=== PATIENT | female | born 1960 | race Caucasian/White ===

== ENCOUNTER 2017-03-23 19:15 | Emergency (ER) | payer OTHER ==
[~2017-03-23] VITALS: Ht 162.6 cm; Wt 68.0 kg
[~2017-03-23 19:15] MED LIST: ACET-141 PO; CALC1TAB78 PO; CIPR500T4 PO; ELEC100080 PO; FOLI-49 PO; IBUP-1542 PO; LOPE2CAP PO; MET25 PO; MULT-552 PO; PRED1TAB2 PO; PRIM250T37 PO; SMV40T PO; [UNRECOGNIZED DRUG - CODE] PO
[2017-03-23 19:17] VITALS: Ht 162.6 cm; Wt 68.0 kg
[2017-03-23 19:58] LABS: URINE BLOOD (Dip) POC 3+ (NEGATIVE)
[2017-03-23] MEDS ORDERED: SOD CHLORIDE 0.9% 1,000 ML IV ONE (20:30)
[2017-03-23] MEDS ORDERED: IBUPROFEN 600 MG TAB PO ONE (20:30)
[2017-03-23] MEDS ORDERED: CEFTRIAXONE 1 GM INJ IM ONE (20:30)
[2017-03-23] MEDS ORDERED: CEFTRIAXONE 1 GM INJ IVPB ONE (21:00)
--- NOTE | 2017-03-23 23:08 | RADRPT ---
PROCEDURE: XR Chest. CLINICAL INDICATION: Cough. TECHNIQUE: PA and lateral views of the chest were obtained. COMPARISON: CT chest 05/21/2015 FINDINGS: The trachea central bronchi are patent. The cardiomediastinal silhouette is within normal limits. The lungs are clear. No pleural effusion or pneumothorax is identified. Demineralization with mult iple chronic thoracic and lumbar vertebral body compression deformities are again noted. 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 RPTAT:HJJR IMPRESSION: 1. No evidence of acute intrathoracic abnormality. 2. Multilevel chronic thoracic and lumbar vertebral body compression deformity is stable compared t o the CT of 05/21/2015. Physician Konstantin Date Time Electronically viewed and signed by Mino Pérez Physician on 03/23/2017 23:07 /
[2017-03-23] MEDS ORDERED: CIPR500T4 PO (23:13)
[2017-03-23] MEDS ORDERED: PHEN-537 PO (23:13)
[2017-03-23 23:32] VITALS: BP 107/87; PULSE 106; RESP 19; TEMP 99.9
--- NOTE | 2017-03-24 00:59 | ERA ---
ER Documentation Chief Complaint Date/Time DATE: 03/24/17 TIME: 00:58 Chief Complaint blood in urine, urine urgency, painful urination, treated currently w/ UTI HPI This is a 56-year-old female who is presenting 1 week after being diagnosed with a UTI with symptoms persisting. Patient is taking all of her antibiotics but wanted. Patient was prescribed Macrobid 7 days. Patient still having hematuria dysuria. Patient denies fever, chills, back pain, discharge. Patient has no other complaints and describes no other associated manifestations. No recent travel. I have reviewed the nurse's notes and are consistent with a history given. ROS All systems reviewed and are negative except as per history of present illness. Medications Home Meds Active Scripts Phenazopyridine Hcl* (Pyridium*) 100 Mg Tab, 100 MG PO TID Y for URINARY PAIN, # 8 TAB Prov:KEVEN JOHNSON PA-C 03/23/17 Ciprofloxacin Hcl* (Ciprofloxacin Hcl*) 500 Mg Tablet, 500 MG PO BID for 14 Days , TAB Prov:KEVEN JOHNSON PA-C 03/23/17 Loperamide Hcl* (Imodium*) 2 Mg Capsule, 2 MG PO .AFTER EA LOOSE BM Y for DIARRHEA, #10 TAB Prov:REYNOLD COOMBS 04/25/16 Electrolyte,Oral (Pedialyte) 1,000 Ml Solution, 100 ML PO Q6 Y for DIARRHEA for 4 Days, ML Prov:REYNOLD COOMBS 04/25/16 Ciprofloxacin Hcl* (Ciprofloxacin Hcl*) 500 Mg Tablet, 500 MG PO BID for 7 Days , TAB Prov:REYNOLD COOMBS 04/25/16 Ibuprofen* (Ibuprofen*) 600 Mg Tablet, 600 MG PO Q6, #30 TAB Prov:GUEVARA LAURENT 05/22/15 Reported Medications Multivitamins* (Once Daily*) 1 Tab Tablet, 1 TAB PO DAILY, TAB 05/21/15 Acetaminophen* (Acetaminophen*) 500 MG Extra Strength Tablet, 1000 MG PO Q6H Y for PAIN, TAB 05/21/15 Methotrexate* (Methotrexate*) 2.5 Mg Tab, 20 MG PO every 7 days, TAB 05/21/15 Simvastatin (Simvastatin) 40 Mg Tablet, 40 MG PO HS, TAB 05/21/15 Prednisone* (Prednisone*) 1 Mg Tablet, 3 MG PO DAILY, TAB 05/21/15 Carbamazepine* (Carbamazepine* XR) 100 Mg Cpmp.12hr, 500 MG PO TID, CAP 05/21/15 Primidone* (Mysoline*) 250 Mg Tablet, 250 MG PO TID 01/24/13 Folic Acid* (Folic Acid*) 1 Mg Tablet, 1 MG PO DAILY 01/24/13 Calcium Carbonate/Vitamin D3 (Calcium Carb 500 Mg Tab Chew) 1 Tab.chew Tab.chew , PO BID 07/07/11 Allergies Allergies: Coded Allergies: No Known Drug Allergies (Verified Allergy, 05/01/13) PMhx/Soc History of Surgery: Yes (TAHBSO, BRAIN TUMOR) Anesthesia Reaction: No Hx 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 Disorder: Yes Hx Respiratory Disorders: No Hx Cardiac Disorders: Yes Hx Psychiatric Problems: No Hx Miscellaneous Medical Probl: Yes (RA, LUPUS, GALLSTONES) Hx Alcohol Use: No Hx Substance Use: No Hx Tobacco Use: No Smoking Status: Never smoker Physical Exam Vitals Vital Signs Date Time Temp Pulse Resp B/P Pulse Ox O2 Delivery O2 Flow Rate FiO2 03/23/17 23:32 99.9 106 19 107/87 96 Room Air 03/23/17 19:17 101.1 109 20 129/66 97 Physical Exam Const: Older appearing overweight. No acute distress. Head: Normocephalic, Atraumatic. Eyes: Non-injected; No scleral erythema, discharge or foreign body. EOMI and SHEA bilaterally. Ears: Normal External Ears, EACs clear, TM normal bilaterally without erythema. Nose: Normal nose without discharge, septal deviation, or sinus tenderness. Oral: No oral edema visualized. Mucous membranes moist and pink. Neck: No cervical lymphadenopathy, masses or goiter palpated. Full range of motion. Supple. Trachea midline. ~ No meningismus. Pulm: Good air movement in upper and lower respiratory tracts. No dyspnea, stridor, tripoding or drooling. Clear to auscultation bilaterally. Cardio: Regular rate and rhythm; No murmurs, gallops or rubs auscultated. No JVD grossly observed. Radial and posterior tibial pulses 2+ bilaterally. No cyanosis. Capillary refill less than 2 seconds. Abd: Mild suprapubic tenderness. Abdomen soft, non tender, non distended. No guarding, masses. Normal bowel sounds. No McBurney's point tenderness. MS: Normal motor strength, normal tone with gross examination. Skin: No petechiae or rashes. No ulcer, induration, jaundice. Good turgor. Back: No midline, flank or CVA tenderness. Ext: No cyanosis, or edema. Normal movement of all extremities grossly observed. Neur: Awake, alert and oriented x3. Neurovascularly intact bilaterally. Psych: Normal Mood and Affect. Results 24 hrs Laboratory Tests Test 03/23/17 20:03 Bedside Urine pH (LAB) 7.0 Bedside Urine Protein (LAB) 3+ Bedside Urine Glucose (UA) Negative Bedside Urine Ketones (LAB) Negative Bedside Urine Blood 3+ Bedside Urine Nitrite (LAB) Negative Bedside Urine Leukocyte Esterase (L 3+ Current Medications Medications (Trade) Dose Ordered Sig/Robin Route PRN Reason Start Time Stop Time Status Last Admin Dose Admin Sodium Chloride (NS) 1,000 ml @ 1,000 mls/hr Q1H ONCE IV 03/23/17 20:30 03/23/17 21:29 DC 03/23/17 20:50 Ibuprofen (Motrin) 600 mg ONCE ONCE PO 03/23/17 20:30 03/23/17 20:31 DC 03/23/17 20:49 Ceftriaxone Sodium (Rocephin) 1 gm ONCE ONCE IM 03/23/17 20:30 03/23/17 20:43 DC Ceftriaxone Sodium (Rocephin) 1 gm ONCE ONCE IVPB 03/23/17 21:00 03/23/17 21:01 DC 03/23/17 20:48 Procedures/MDM This is a 56-year-old female presenting with signs and symptoms consistent with urinary tract infection. Patient is on last day of Macrobid without resolution of symptoms. Patient currently has a fever thus ibuprofen is given with resolution of the fever. Patient is also tacky and a saline bolus was given. Patient denies chest pain/epigastric pain/diaphoresis and at this time I very little suspicion for acute coronary syndrome. Patient states that she is in mild discomfort. Urine culture and blood cultures were obtained. Urinalysis was consistent with urinary tract infection. Physical exam showed moderate suprapubic tenderness. Before discharge patient said that she also has had cough thus a chest x-ray was taken to rule out pneumonia. The chest x-ray was read by the radiologist given the following impression 1. No evidence of acute intrathoracic abnormality. 2. Multilevel chronic thoracic and lumbar vertebral body compression deformity is stable compared to the CT of 05/21/2015. At this time a very little suspicion for pneumonia, pulmonary embolism, acute coronary syndrome or other intrathoracic pathologies. Most likely diagnosis is acute hemorrhagic cystitis. At this time I very little suspicion for pyelonephritis, ovarian torsion, tubo-ovarian abscess, mechanical obstruction, hernia, appendicitis, intestinal ischemia, PID, AAA, or diverticulitis. Repeat exam was unremarkable. The patient is well appearing, and tolerates PO. I have reviewed this case with my attending Dr. Dc who agrees with the assessment and plan. I have spoke with the patient regarding their condition and future management. They have verbally responded that they understand their status and treatment plan. The patients vitals are stable, and their current condition is appropriate for discharge. The patient will be given discharge instructions with return precautions. Patient's antibiotics will consist of 14 days of Cipro. Departure Diagnosis: Primary Impression: Complicated UTI (urinary tract infection) Additional Impression: Urinary tract infection Qualified Code: N30.01 - Acute cystitis with hematuria Condition: Stable Patient Instructions: Understanding Urinary Tract Infections (UTIs) Additional Instructions: Aky un seguimiento con bahena PCP dentro de los prximos 1-3 joseph para ashwini evaluaci n ms completa y ashwini posible derivacin a un especialista. Devuelva el departamento de emergencia inmediatamente si los sntomas empeoran o cambian. Si tiene alguna pregunta con respecto a los medicamentos, consulte con bahena farmac utico o con nosotros antes de salir. Si se producen reacciones adversas mientras gianfranco kiara medicamentos, suspenda el tratamiento y regrese inmediatamente al servicio de urgencias. Ruth kiara medicamentos segn las indicaciones y complete el curso completo del tratamiento. KEVEN JOHNSON PA-C Mar 24, 2017 00:58
== END 2017-03-23 23:30 | disposition home or self-care (01) ==
LOC: FTE 19:15
DX: N30.01 Acute cystitis with hematuria (principal); R05 Cough
CPT/HCPCS: 71020; 81003; 87040; 87086; J0696; J7030; Z7610; 96374

== ENCOUNTER 2017-04-23 11:51 | Inpatient (IN) | payer OTHER ==
[~2017-04-23] VITALS: Ht 144.8 cm; Wt 64.0 kg
[~2017-04-23 11:51] MED LIST changes: +PHEN-537 PO; +SIMV40TA3 PO; -SMV40T PO
[2017-04-23] MEDS ORDERED: morphine 4 MG/ML VIAL IV STA (16:17)
[2017-04-23] MEDS ORDERED: SOD CHLORIDE 0.9% 1,000 ML IV STA (16:17)
[2017-04-23] MEDS ORDERED: ONDANSETRON 4 MG INJ IV STA (16:17)
[2017-04-23] MEDS ORDERED: ERTAPENEM SODIUM 1 GM in SOD CHLORIDE 0.9% 100 ML IVPB ONE (16:30)
[2017-04-23 16:40] LABS: BASOPHILS % 0.2 % (0.0-2.0); HEMATOCRIT 34.9 % (37.0-47.0); HEMOGLOBIN 10.8 g/dl (12.0-16.0); LYMPHOCYTES # 1.1 10^3/ul (0.8-2.9); LYMPHOCYTES % 10.4 % (15.0-51.0); MEAN CORPUSCULAR HGB CONC 30.9 g/dl (32.0-37.0); MEAN CORPUSCULAR VOLUME 93.6 fl (82.0-101.0); MEAN PLATELET VOLUME 9.4 fl (7.4-10.4); MONOCYTE # 0.9 10^3/ul (0.3-0.9); MONOCYTES % 8.3 % (0.0-11.0); NEUTROPHIL # 8.5 10^3/ul (1.6-7.5); NEUTROPHILS % 80.6 % (39.0-77.0); PLATELET COUNT 569 10^3/UL (140-415); RED BLOOD COUNT 3.73 10^6/ul (4.20-5.40); RED CELL DISTRIBUTION WIDTH 14.5 % (11.5-14.5); WHITE BLOOD COUNT 10.6 10^3/ul (4.8-10.8)
[2017-04-23 17:01] LABS: ALBUMIN 3.8 g/dl (3.3-4.9); CALCIUM 10.5 mg/dl (8.4-10.2); CREATININE 0.38 mg/dl (0.44-1.00)
[2017-04-23 17:02] LABS: ALBUMIN/GLOBULIN RATIO 0.9
[2017-04-23] MEDS ORDERED: SOD CHLORIDE 0.9% 100 ML ONE (17:11)
[2017-04-23] MEDS ORDERED: IOHEXOL 300MG/ML 150 ML BTL ONE (17:11)
[2017-04-23 17:46] LABS: ADD UMIC YES; UR ASCORBIC ACID 40 mg/dL (NEGATIVE); UR BILIRUBIN (Dip) NEGATIVE (NEGATIVE); UR BLOOD (Dip) 1+ mg/dL (NEGATIVE); UR CLARITY TURBID (CLEAR); UR COLOR AMBER (YELLOW); UR GLUCOSE (Dip) NEGATIVE (NEGATIVE); UR KETONES (Dip) NEGATIVE (NEGATIVE); UR LEUKOCYTE ESTERASE (Dip) 3+ Leu/ul (NEGATIVE); UR NITRITE (Dip) NEGATIVE (NEGATIVE); UR NONSQUAMOUS EPITHELIAL CELL 1 /HPF (NONE SEEN); UR RBC 9 /HPF (0-5); UR SPECIFIC GRAVITY (Dip) 1.011 (1.003-1.030); UR TOTAL PROTEIN (Dip) 1+ mg/dl (NEGATIVE); UR UROBILINOGEN (Dip) NEGATIVE (NEGATIVE); UR WBC CLUMPS MANY /HPF (NONE SEEN)
--- NOTE | 2017-04-23 17:58 | RADRPT ---
PROCEDURE: CT Abdomen and Pelvis with contrast. CLINICAL INDICATION: Abdominal pain TECHNIQUE: CT of the abdomen and pelvis was performed on a multi-detector scanner following the un complicated IV administration of 85 cc of Omnipaque 300. Coronal and sagittal images were reformatt ed from the axial data set. One or more of the following dose reduction techniques were used: autom ated exposure control, adjustment of the mA and/or kV according to patient size, use of iterative r econstruction technique. CTDI = 16.53 mGy. DLP = 836.91 mGy-cm. COMPARISON: CT, 01/24/2013 FINDINGS: CT abdomen: The lung bases are clear. The heart size is normal, without pericardial effusion. Gallbladder is s urgically absent. Liver, biliary tree, pancreas, spleen, adrenal glands and right kidney are unrema rkable. Nonobstructive left renal calculus is seen, without ureterolithiasis or obstructive uropath y. The stomach is grossly unremarkable. There is no abdominal aortic aneurysm or dissection. There is no retroperitoneal lymphadenopathy. The isha hepatis region is clear. CT pelvis: Multilocular gas and fluid collection is identified in the central pelvis, measuring approximately 1 1 x 9 x 8 cm (3-127), compatible with abscess. Collection is directly adjacent to sigmoid colon, li olga representing diverticular abscess. No bowel obstruction or free intraperitoneal air is seen. The patient is status post appendectomy. Bowel containing lower abdominal ventral hernia is noted, without incarceration. Urinary bladder is not well visualized. Uterus is surgically absent. No so lid pelvic mass or lymphadenopathy is identified. The surrounding osseous structures are remarkable for diffuse degenerative enthesopathy of the spine . There are multilevel mild to moderate chronic compression deformities throughout the visualized t horacolumbar spine. No osteolytic or osteoblastic lesion is detected. IMPRESSION: 1. Findings suggestive of large diverticular abscess in the central pelvis, measuring approximately 11 cm in maximal dimension. No bowel obstruction or free intraperitoneal air is identified. Urinar y bladder is not well visualized. 2. Gallbladder and uterus are surgically absent. 3. Bowel containing lower abdominal ventral hernia is noted, without obstruction or incarceration. 4. Nonobstructive left renal calculus is noted, without ureterolithiasis or obstructive uropathy. RPTAT: EE .Jose Manuel Pratt MD, MD Date Time Electronically viewed and signed by .Jose Manuel Pratt MD, MD on 04/23/2017 17:58 .R/
[2017-04-23] MEDS ORDERED: HYDROCODONE/APAP (5/325) TAB PO ONE (20:00)
[2017-04-23] MEDS ORDERED: IBUP800T25 PO (20:18)
[2017-04-23] MEDS ORDERED: CARB200T43 PO (20:18)
[2017-04-23] MEDS ORDERED: PRED10TA PO (20:19)
[2017-04-23] MEDS ORDERED: SULF500T45 PO (20:21)
[2017-04-23] MEDS ORDERED: SOD CHLORIDE 0.9% 1,000 ML IV SCH (20:39)
--- NOTE | 2017-04-23 20:39 | ERA ---
ER Documentation Chief Complaint Date/Time DATE: 04/23/17 TIME: 20:37 Chief Complaint sent by pcp for pelvic pain and mass HPI This a 56-year-old female who has had 2 weeks of left lower abdominal pain. The patient had a CAT scan that showed a pelvic mass and followed up with her doctor had an MRI demonstrating a diverticular abscess 11 x 9 cm. The patient says she is not having any fever diarrhea vomiting but does have a constant fullness in her pelvis left lower quadrant. Patient was given the MRI results today by her physician told to come to the hospital for treatment of the abscess. She is not having any weight loss night sweats or chills ROS All systems reviewed and are negative except as per history of present illness. Medications Home Meds Active Scripts Ciprofloxacin Hcl* (Ciprofloxacin Hcl*) 500 Mg Tablet, 500 MG PO BID for 14 Days , TAB Prov:KEVEN JOHNSON PA-C 03/23/17 Reported Medications Sulfasalazine (Azulfidine) 500 Mg Tab, 500 MG PO QID for 30 Days, #120 TAB 04/23/17 Prednisone* (Prednisone*) 10 Mg Tab, 30 MG PO DAILY, TAB 04/23/17 Ibuprofen* (Ibuprofen*) 800 Mg Tab, 800 MG PO Q6H Y for PAIN, TAB 04/23/17 Carbamazepine* (Carbamazepine* XR) 200 Mg Tab.er.12h, 500 MG PO TID, #60 TAB.SA 04/23/17 Multivitamins* (Once Daily*) 1 Tab Tablet, 1 TAB PO DAILY, TAB 05/21/15 Methotrexate* (Methotrexate*) 2.5 Mg Tab, 20 MG PO every 7 days, TAB Saturdays05/21/15 Simvastatin (Simvastatin) 40 Mg Tablet, 40 MG PO HS, TAB 05/21/15 Primidone* (Mysoline*) 250 Mg Tablet, 250 MG PO TID 01/24/13 Folic Acid* (Folic Acid*) 1 Mg Tablet, 1 MG PO DAILY 01/24/13 Calcium Carbonate/Vitamin D3 (Calcium Carb 500 Mg Tab Chew) 1 Tab.chew Tab.chew , PO BID 07/07/11 Discontinued Reported Medications Acetaminophen* (Acetaminophen*) 500 MG Extra Strength Tablet, 1000 MG PO Q6H Y for PAIN, TAB 05/21/15 Prednisone* (Prednisone*) 1 Mg Tablet, 3 MG PO DAILY, TAB 8/31/15 Carbamazepine* (Carbamazepine* XR) 100 Mg Cpmp.12hr, 500 MG PO TID, CAP 05/21/15 Discontinued Scripts Phenazopyridine Hcl* (Pyridium*) 100 Mg Tab, 100 MG PO TID Y for URINARY PAIN, # 8 TAB Prov:KEVEN JOHNSON PA-C 03/23/17 Loperamide Hcl* (Imodium*) 2 Mg Capsule, 2 MG PO .AFTER EA LOOSE BM Y for DIARRHEA, #10 TAB Prov:REYNOLD COOMBS 04/25/16 Electrolyte,Oral (Pedialyte) 1,000 Ml Solution, 100 ML PO Q6 Y for DIARRHEA for 4 Days, ML Prov:REYNOLD COOMBS 04/25/16 Ciprofloxacin Hcl* (Ciprofloxacin Hcl*) 500 Mg Tablet, 500 MG PO BID for 7 Days , TAB Prov:REYNOLD COOMBS 04/25/16 Ibuprofen* (Ibuprofen*) 600 Mg Tablet, 600 MG PO Q6, #30 TAB Prov:GUEVARA LAURENT 05/22/15 Allergies Allergies: Coded Allergies: No Known Drug Allergies (Verified Allergy, Unknown, 04/23/17) PMhx/Soc History of Surgery: Yes (TAHBSO, BRAIN TUMOR) Anesthesia Reaction: No Hx 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 Disorder: Yes Hx Respiratory Disorders: No Hx Cardiac Disorders: Yes Hx Psychiatric Problems: No Hx Miscellaneous Medical Probl: Yes (RA, LUPUS, GALLSTONES, UTI) Hx Alcohol Use: No Hx Substance Use: No Hx Tobacco Use: No Smoking Status: Never smoker FmHx Family History: No coronary disease Physical Exam Vitals Vital Signs Date Time Temp Pulse Resp B/P Pulse Ox O2 Delivery O2 Flow Rate FiO2 04/23/17 18:30 81 20 119/62 97 Room Air 04/23/17 11:52 98.2 95 18 117/58 97 Physical Exam Const: Well-developed, well-nourished Head: Atraumatic, normocephalic Eyes: Normal Conjunctiva, PERRLA, EOMI, normal sclera, no nystagmus ENT: Normal External Ears, Nose and Mouth, moist mucus membranes. Neck: Full range of motion. No meningismus, no lymphadenopathy. Resp: Clear to auscultation bilaterally, no wheezing, rhonchi, rales Cardio: Regular rate and rhythm, no murmurs, S1 S2 present Abd: Soft, left lower quadrant suprapubic tenderness mild, non distended. Normal bowel sounds, no guarding or rebound, no pulsitile abdominal masses or bruits, cannot appreciate mass to her obesity Skin: No petechiae or rashes, no ecchymosis , no maculopapular rash Back: No midline or flank tenderness Ext: No cyanosis, or edema, FROM x 4, normal inspection, neurovascularly intact x 4 Neur: Awake and alert, STR 5/5 x 4, sensation intact x 4, no focal findings, cerebellum intact Psych: Normal Mood and Affect Result Diagram: 04/23/17 1625 04/23/17 1625 Results 24 hrs Laboratory Tests Test 04/23/17 16:25 04/23/17 17:25 White Blood Count 10.610^3/ul Red Blood Count 3.7310^6/ul Hemoglobin 10.8g/dl Hematocrit 34.9% Mean Corpuscular Volume 93.6fl Mean Corpuscular Hemoglobin 29.0pg Mean Corpuscular Hemoglobin Concent 30.9g/dl Red Cell Distribution Width 14.5% Platelet Count 92449^3/UL Mean Platelet Volume 9.4fl Neutrophils % 80.6% Lymphocytes % 10.4% Monocytes % 8.3% Eosinophils % 0.0% Basophils % 0.2% Nucleated Red Blood Cells % 0.0/100WBC Neutrophils # 8.510^3/ul Lymphocytes # 1.110^3/ul Monocytes # 0.910^3/ul Eosinophils # 0.010^3/ul Basophils # 0.010^3/ul Nucleated Red Blood Cells # 0.010^3/ul Sodium Level 143mmol/L Potassium Level 4.0mmol/L Chloride Level 98mmol/L Carbon Dioxide Level 32mmol/L Anion Gap 17 Blood Urea Nitrogen 12mg/dl Creatinine 0.38mg/dl Glucose Level 165mg/dl Calcium Level 10.5mg/dl Total Bilirubin 0.0mg/dl Direct Bilirubin 0.00mg/dl Indirect Bilirubin 0.0mg/dl Aspartate Amino Transf (AST/SGOT) 32IU/L Alanine Aminotransferase (ALT/SGPT) 34IU/L Alkaline Phosphatase 141IU/L Total Protein 8.0g/dl Albumin 3.8g/dl Globulin 4.20g/dl Albumin/Globulin Ratio 0.90 Urine Color SCAR Urine Clarity TURBID Urine pH 7.0 Urine Specific [place] 1.011 Urine Ketones NEGATIVEmg/dL Urine Nitrite NEGATIVEmg/dL Urine Bilirubin NEGATIVEmg/dL Urine Urobilinogen NEGATIVEmg/dL Urine Leukocyte Esterase 3+Jessica/ul Urine Microscopic RBC 9/HPF Urine Microscopic WBC > 182/HPF Urine Hemoglobin 1+mg/dL Urine Glucose NEGATIVEmg/dL Urine Total Protein 1+mg/dl Current Medications Medications (Trade) Dose Ordered Sig/Robin Route PRN Reason Start Time Stop Time Status Last Admin Dose Admin Sodium Chloride (NS) 1,000 ml @ 1,000 mls/hr Q1H STAT IV 04/23/17 16:17 04/23/17 17:16 DC 04/23/17 16:32 Morphine Sulfate (morphine) 4 mg ONCE STAT IV 04/23/17 16:17 04/23/17 16:19 DC 04/23/17 16:32 Ondansetron HCl 4 mg 4 mg ONCE STAT IV 04/23/17 16:17 04/23/17 16:19 DC 04/23/17 17:08 Ertapenem/Sodium Chloride (Invanz/NS) 100 ml @ 200 mls/hr ONCE ONCE IVPB 04/23/17 16:30 04/23/17 16:59 DC 04/23/17 17:08 IV Flush 10 ml 10 ml STK-MED ONCE .ROUTE 04/23/17 17:11 04/23/17 17:12 DC 04/23/17 17:31 Sodium Chloride (NS) 100 ml @ ud STK-MED ONCE .ROUTE 04/23/17 17:11 04/23/17 17:12 DC 04/23/17 17:34 Iohexol (Omnipaque 300mg/ ml) 150 ml STK-MED ONCE .ROUTE 04/23/17 17:11 04/23/17 17:12 DC 04/23/17 17:33 Acetaminophen/ Hydrocodone Bitart ([place] (5/325)) 1 tab ONCE ONCE PO 04/23/17 20:00 04/23/17 20:01 DC 04/23/17 19:56 Procedures/MDM PROCEDURE: CT Abdomen and Pelvis with contrast. CLINICAL INDICATION: Abdominal pain TECHNIQUE: CT of the abdomen and pelvis was performed on a multi-detector scanner following the uncomplicated IV administration of 85 cc of Omnipaque 300. Coronal and sagittal images were reformatted from the axial data set. One or more of the following dose reduction techniques were used: automated exposure control, adjustment of the mA and/or kV according to patient size, use of iterative reconstruction technique. CTDI = 16.53 mGy. DLP = 836.91 mGy- cm. COMPARISON: CT, 01/24/2013 FINDINGS: CT abdomen: The lung bases are clear. The heart size is normal, without pericardial effusion. Gallbladder is surgically absent. Liver, biliary tree, pancreas, spleen, adrenal glands and right kidney are unremarkable. Nonobstructive left renal calculus is seen, without ureterolithiasis or obstructive uropathy. The stomach is grossly unremarkable. There is no abdominal aortic aneurysm or dissection. There is no retroperitoneal lymphadenopathy. The isha hepatis region is clear. CT pelvis: Multilocular gas and fluid collection is identified in the central pelvis, measuring approximately 11 x 9 x 8 cm (3-127), compatible with abscess. Collection is directly adjacent to sigmoid colon, likely representing diverticular abscess. No bowel obstruction or free intraperitoneal air is seen. The patient is status post appendectomy. Bowel containing lower abdominal ventral hernia is noted, without incarceration. Urinary bladder is not well visualized. Uterus is surgically absent. No solid pelvic mass or lymphadenopathy is identified. The surrounding osseous structures are remarkable for diffuse degenerative enthesopathy of the spine. There are multilevel mild to moderate chronic compression deformities throughout the visualized thoracolumbar spine. No osteolytic or osteoblastic lesion is detected. IMPRESSION: 1. Findings suggestive of large diverticular abscess in the central pelvis, measuring approximately 11 cm in maximal dimension. No bowel obstruction or free intraperitoneal air is identified. Urinary bladder is not well visualized. 2. Gallbladder and uterus are surgically absent. 3. Bowel containing lower abdominal ventral hernia is noted, without obstruction or incarceration. 4. Nonobstructive left renal calculus is noted, without ureterolithiasis or obstructive uropathy. RPTAT: EE .Jose Manuel Pratt MD, MD Date Time Electronically viewed and signed by .Jose Manuel Pratt MD, MD on 04/23/2017 17: 58 .R/ CC: FAWN SHAH DO Patient received IV Invanz 1 g IV. We will admit the patient to the hospital for abscess drain placement tomorrow Departure Diagnosis: Primary Impression: Colonic diverticular abscess Condition: Stable FAWN SHAH DO Apr 23, 2017 20:39
[2017-04-23] MEDS ORDERED: ONDANSETRON 4 MG INJ IV PRN ×2 (21:00→22:30)
[2017-04-23] MEDS ORDERED: ACETAMINOPHEN 325 MG TAB PO PRN (21:00)
[2017-04-23 21:34] VITALS: Ht 144.8 cm; Wt 64.0 kg
[2017-04-23 22:08] VITALS: BP 115/56; RESP 20
[2017-04-23] MEDS: PIPER-TAZO 3.375 GM IV (PMX) 100 ML IVPB SCH (23:54)
[2017-04-23] MEDS: DEXTROSE 5%-0.45% NACL 1,000 ML IV SCH (23:57)
[2017-04-24 02:08] VITALS: BP 101/57; RESP 20
[2017-04-24] MEDS: morphine 4 MG/ML VIAL IV PRN (02:57)
[2017-04-24] MEDS: PIPER-TAZO 3.375 GM IV (PMX) 100 ML IVPB SCH ×3 (05:40→19:03)
[2017-04-24 05:46] LABS: BASOPHILS % 0.2 % (0.0-2.0); HEMATOCRIT 29.5 % (37.0-47.0); HEMOGLOBIN 9.2 g/dl (12.0-16.0); LYMPHOCYTES # 1.1 10^3/ul (0.8-2.9); LYMPHOCYTES % 16.8 % (15.0-51.0); MEAN CORPUSCULAR HEMOGLOBIN 29.3 pg (29.0-33.0); MEAN CORPUSCULAR HGB CONC 31.2 g/dl (32.0-37.0); MEAN CORPUSCULAR VOLUME 93.9 fl (82.0-101.0); MEAN PLATELET VOLUME 9.3 fl (7.4-10.4); MONOCYTE # 0.9 10^3/ul (0.3-0.9); MONOCYTES % 13.3 % (0.0-11.0); NEUTROPHIL # 4.6 10^3/ul (1.6-7.5); NEUTROPHILS % 69.2 % (39.0-77.0); PLATELET COUNT 451 10^3/UL (140-415); RED BLOOD COUNT 3.14 10^6/ul (4.20-5.40); RED CELL DISTRIBUTION WIDTH 14.5 % (11.5-14.5); WHITE BLOOD COUNT 6.6 10^3/ul (4.8-10.8)
[2017-04-24 06:08] LABS: ALBUMIN 3.1 g/dl (3.3-4.9); ALBUMIN/GLOBULIN RATIO 0.93; CALCIUM 8.9 mg/dl (8.4-10.2); CREATININE 0.41 mg/dl (0.44-1.00); MAGNESIUM 1.6 mg/dl (1.7-2.5); PHOSPHORUS 3.2 mg/dl (2.5-4.9); POTASSIUM 3.5 mmol/L (3.5-5.1); TOTAL PROTEIN 6.4 g/dl (6.1-8.1)
[2017-04-24] MEDS ORDERED: ACETAMINOPHEN 1000MG/100ML IV 100 ML IVPB ONE ×2 (06:30→17:00)
--- NOTE | 2017-04-24 07:25 | HP ---
Date/Time of Note Date/Time of Note DATE: 04/24/17 TIME: 07:10 Assessment/Plan VTE Prophylaxis VTE Prophylaxis Intervention: SCD's Lines/Catheters IV Catheter Type (from Nrs): Saline Lock Assessment/Plan Assessment/Plan 1. Large diverticular abscess -IV antibiotic -will follow up on culture results -Awaiting surgical evaluation. -Pain management 2. Severe UTI -Continue antibiotic. Will follow up on urine culture results 3. Normocytic anemia -We will evaluate for iron deficiency. Given her age, will also order FOBT 4. Hx of seizure disorder: Denied recent episode -We will monitor for now 5. Hx of Reported brain tumor s/p surgery -No acute issue 6. History of infected pelvic mass, s/p hysterectomy, oophorectomy and omentectomy -No acute issue 7. Severe Rheumatoid arthritis and hx of Sjogren syndrome -Pain management HPI/ROS Admit Date/Time Admit Date/Time Apr 23, 2017 at 20:40 Hx of Present Illness This is a 56-year-old female with a history of infected pelvic mass, s/p hysterectomy, oophorectomy and omentectomy, history of severe rheumatoid arthritis, Sjogren syndrome, osteoporosis, seizure disorder and reported brain tumor status post surgery. Patient reported abdominal pain of about 2 months duration. She saw her PMD and had MRI that shows a large diverticular abscess and as such she was instructed to come to the ER for evaluation. Abdominal pain is diffuse but mainly localized in the right side of her abdomen and in the epigastric area. Reported subjective fever and generalized weakness. Denied diarrhea. In ER, CT abdomen/pelvis showed large diverticular abscess in the central pelvis. Initial vitals were stable. WBC was 11.6. . PMH/Family/Social Social History Smoking Status: Never smoker Exam/Review of Systems Vital Signs Vitals Vital Signs Date Time Temp Pulse Resp B/P Pulse Ox O2 Delivery O2 Flow Rate FiO2 04/24/17 02:08 98.6 93 20 101/57 92 04/23/17 21:07 Room Air Intake and Output 04/23/17 04/23/17 04/24/17 15:00 23:00 07:00 Intake Total 600 ml Output Total 250 ml Balance 350 ml Exam Constitutional: other (Appears weak. Speaking slowly.) Head: normocephalic Eyes: EOMI, PERRL Respiratory: clear to auscultation, normal air movement Cardiovascular: nl pulses, regular rate and rhythm Gastrointestinal: soft, surgical scars, tender (Mild tenderness in the epigastric and on the right side of the abdomen. No rebound tenderness. No rigidity.) Extremities: normal pulses Labs Result Diagram: 04/24/17 0510 04/24/17 0510 Medications Medications Current Medications Sodium Chloride 1,000 ml @ 80 mls/hr [id number] IV ; Start 04/23/17 at 20:39; Stop 04/24/17 at 09:08 Dextrose/Sodium Chloride (D5-1/2ns) 1,000 ml @ 100 mls/hr Q10H IV Last administered on 04/23/17 23:57; Admin Dose 100 MLS/HR; Start 04/23/17 at 22:30 Ondansetron HCl (Zofran Inj) 4 mg Q6H PRN IV NAUSEA AND/OR VOMITING; Start 04/23 at 22:30 Morphine Sulfate 3 mg 3 mg Q4H PRN IV PAIN Last administered on 04/24/17 02:57 ; Admin Dose 3 MG; Start 04/23/17 at 22:30 Piperacillin Sod/ Tazobactam Sod (Zosyn 3.375gm/ 100 ml (Pmx)) 100 ml @ 200 mls /hr Q6 IVPB Last administered on 04/24/17 05:40; Admin Dose 200 MLS/HR; Start 04/24/17 at 00:00 SHARON GIRALDO MD Apr 24, 2017 07:22
[2017-04-24 08:10] VITALS: BP 125/58; RESP 16
[2017-04-24] MEDS: DEXTROSE 5%-0.45% NACL 1,000 ML IV SCH ×2 (10:33→18:30)
[2017-04-24] MEDS ORDERED: LORAZEPAM 2 MG INJ IV PRN (11:00)
[2017-04-24] MEDS: LEVETIRACETAM IV 500 MG in SOD CHLORIDE 0.9% 100 ML IVPB SCH ×2 (12:22→20:27)
[2017-04-24] MEDS: METHYLPREDNISOLONE 40 MG INJ IV SCH (12:22)
--- NOTE | 2017-04-24 12:50 | CONS ---
Date/Time of Note Date/Time of Note DATE: 04/24/17 TIME: 12:42 Assessment/Plan Assessment/Plan Chief Complaint/Hosp Course 1. Central pelvic abscess: significant history of pelvic cancer; concern for malignancy, no symptoms of infection -consult by gynecology - hx of pelvic ca s/p oopherectomy hysterectomy -?onc consult 2. UTI: multiorganism pathogens -abx per sensitivity 3.Normocytic anemia: no acute bleed noted -monitor -transfuse as needed 4. Hypomagnesemia -replete and monitor 5. History of pelvic ca, brain tumor Patient seen and examined in collaboration with Dr. Jonatan De Los Santos. Thank you. Problems: Consultation Date/Type/Reason Admit Date/Time Apr 23, 2017 at 20:40 Date of Consultation: Apr 24, 2017 Type of Consultation: surgical Reason for Consultation pelvic abscess Referring Provider: SHARON GIRALDO MD Hx of Present Illness Martha Santana is a 56 yo woman with a history of infected pelvic mass, s/p hysterectomy, oophorectomy and omentectomy. She was sent to the ED from her PMD due to a MRI that shows a large diverticular abscess. She initially reported abdominal pain x 2 months. He pain was described as diffuse with localization in the right side of her abdomen and in the epigastric area. Associated symptoms include subjective fever and generalized weakness. She denies, diarrhea, hematochezia, melena. Reports 10-15 pound weight loss in 2-[address] was done showing multilocular gas and fluid collection is identified in the central pelvis, measuring approximately 11 x 9 x 8 cm. Surgical consult was called to evaluate. 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 Past Surgical History hysterectomy, oophorectomy and omentectomy Family History Significant Family History: no pertinent family hx Social History Alcohol Use: none Smoking Status: Never smoker Exam/Review of Systems Vital Signs Vitals Vital Signs Date Time Temp Pulse Resp B/P Pulse Ox O2 Delivery O2 Flow Rate FiO2 04/24/17 08:10 98.4 89 16 125/58 96 04/23/17 21:07 Room Air Intake and Output 04/23/17 04/23/17 04/24/17 15:00 23:00 07:00 Intake Total 700 ml Output Total 250 ml Balance 450 ml Exam Constitutional: alert, oriented Psych: anxiety, no complaints Head: atraumatic, normocephalic Eyes: nl lids, nl sclera ENMT: mucosa pink and moist, nl nasal mucosa & septum Neck: non-tender, supple Respiratory: clear to auscultation, normal air movement Cardiovascular: regular rate and rhythm, No edema Gastrointestinal: mass (palpable mass ), soft, tender Musculoskeletal: nl extremities to inspection, nl gait and stance Extremities: normal pulses, No edema 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: nl mental status, nl speech, nl strength Lymph: No nl lymph nodes Results Result Diagram: 04/24/17 0510 04/24/17 0510 Results 24 hrs Laboratory Tests Test 04/23/17 16:25 04/23/17 17:25 04/24/17 05:10 White Blood Count 10.6 # 6.6 # Red Blood Count 3.73 L 3.14 L Hemoglobin 10.8 L 9.2 L Hematocrit 34.9 L 29.5 L Mean Corpuscular Volume 93.6 93.9 Mean Corpuscular Hemoglobin 29.0 29.3 Mean Corpuscular Hemoglobin Concent 30.9 L 31.2 L Red Cell Distribution Width 14.5 14.5 Platelet Count 569 H 451 #H Mean Platelet Volume 9.4 9.3 Neutrophils % 80.6 H 69.2 Lymphocytes % 10.4 L 16.8 Monocytes % 8.3 13.3 H Eosinophils % 0.0 0.0 Basophils % 0.2 0.2 Nucleated Red Blood Cells % 0.0 0.0 Neutrophils # 8.5 H 4.6 Lymphocytes # 1.1 1.1 Monocytes # 0.9 0.9 Eosinophils # 0.0 0.0 Basophils # 0.0 0.0 Nucleated Red Blood Cells # 0.0 0.0 Sodium Level 143 144 Potassium Level 4.0 3.5 Chloride Level 98 105 Carbon Dioxide Level 32 H 29 Anion Gap 17 H 14 Blood Urea Nitrogen 12 7 Creatinine 0.38 L 0.41 L Glucose Level 165 126 Calcium Level 10.5 H 8.9 Total Bilirubin 0.0 L 0.0 L Direct Bilirubin 0.00 0.00 Indirect Bilirubin 0.0 0.0 Aspartate Amino Transf (AST/SGOT) 32 21 Alanine Aminotransferase (ALT/SGPT) 34 30 Alkaline Phosphatase 141 H 102 Total Protein 8.0 6.4 # Albumin 3.8 3.1 L Globulin 4.20 H 3.30 H Albumin/Globulin Ratio 0.90 0.93 Urine Color SCAR Urine Clarity TURBID A Urine pH 7.0 Urine Specific [place] 1.011 Urine Ketones NEGATIVE Urine Nitrite NEGATIVE Urine Bilirubin NEGATIVE Urine Urobilinogen NEGATIVE Urine Leukocyte Esterase 3+ H Urine Microscopic RBC 9 H Urine Microscopic WBC > 182 H Urine Hemoglobin 1+ H Urine Glucose NEGATIVE Urine Total Protein 1+ H Phosphorus Level 3.2 Magnesium Level 1.6 L Medications Medications Current Medications Dextrose/Sodium Chloride (D5-1/2ns) 1,000 ml @ 100 mls/hr Q10H IV Last administered on 04/24/17 10:33; Admin Dose 100 MLS/HR; Start 04/23/17 at 22:30 Ondansetron HCl (Zofran Inj) 4 mg Q6H PRN IV NAUSEA AND/OR VOMITING; Start 04/23 at 22:30 Morphine Sulfate 3 mg 3 mg Q4H PRN IV PAIN Last administered on 04/24/17 02:57 ; Admin Dose 3 MG; Start 04/23/17 at 22:30 Piperacillin Sod/ Tazobactam Sod 100 ml @ 200 mls/hr Q6 IVPB Last administered on 04/24/17 12:22; Admin Dose 200 MLS/HR; Start 04/24/17 at 00:00 Levetiracetam/ Sodium Chloride (Keppra Iv/NS) 105 ml @ 430 mls/hr Q12 IVPB Last administered on 04/24/17 12:22; Admin Dose 430 MLS/HR; Start 04/24/17 at 12: 00 Lorazepam (Ativan) 2 mg Q10MIN PRN IV seizure; Start 04/24/17 at 11:00 Methylprednisolone Sodium Succinate (Solu-Medrol) 20 mg DAILY IV Last administered on 04/24/17 12:22; Admin Dose 20 MG; Start 04/24/17 at 11:30 JENIFER CABAN NP Apr 24, 2017 12:50
[2017-04-24] MEDS: MULTIVITAMINS THERAPEUTIC TAB PO SCH (14:30)
[2017-04-24] MEDS: FOLIC ACID 1 MG TAB PO SCH (14:30)
--- NOTE | 2017-04-24 14:31 | PN ---
Date/Time of Note Date/Time of Note DATE: 04/24/17 TIME: 14:30 Assessment/Plan VTE Prophylaxis VTE Prophylaxis Intervention: SCD's Lines/Catheters IV Catheter Type (from Nrs): Saline Lock Assessment/Plan Chief Complaint/Hosp Course Patient is a 56-year-old female with past medical history significant for pelvic mass status post hysterectomy and bilateral salpingo-oophorectomy with omentectomy and severe rheumatoid arthritis who presents to [facility] for abdominal pain and her physician sent her after he found a large diverticular abscess. Assessment and problem list Large diverticular abscess Sepsis, stable UTI Anemia History of seizure disorder History of brain tumor History of pelvic mass Severe rheumatoid arthritis Sjogren's syndrome Plan -General surgery has seen the patient, will drain via IR, continue antibiotics for now -Patient to resume home meds as able, patient will need to bring home [place] -Continue symptomatic care, pain management as necessary -Oncology has also been consulted for possible mass and malignancy given patient 's history of multiple masses in the pelvis and in the brain. -Follow-up with repeat labs and monitor closely Problems: Subjective 24 Hr Interval Summary Free Text/Dictation no acute complaints except concern of home medications Exam/Review of Systems Vital Signs Vitals Vital Signs Date Time Temp Pulse Resp B/P Pulse Ox O2 Delivery O2 Flow Rate FiO2 04/24/17 08:10 98.4 89 16 125/58 96 04/23/17 21:07 Room Air Intake and Output 04/23/17 04/23/17 04/24/17 15:00 23:00 07:00 Intake Total 700 ml Output Total 250 ml Balance 450 ml Exam Physical exam General: Patient is laying in bed and answers questions appropriately Mentation: Patient is alert and oriented 4, Head: Normocephalic atraumatic Eyes: EOMI, pupils reactive to light Neck: Supple, nontender, midline Respiratory: Clear to auscultation bilaterally Cardiovascular: regular rate, no obvious murmurs Gastrointestinal: mildly tender to palpation, bowel sounds heard. 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: Moves all extremities spontaneously Skin: No new skin lesions Results Result Diagram: 04/24/17 0510 04/24/17 0510 Results 24 hrs Laboratory Tests Test 04/23/17 16:25 04/23/17 17:25 04/24/17 05:10 White Blood Count 10.6 # 6.6 # Red Blood Count 3.73 L 3.14 L Hemoglobin 10.8 L 9.2 L Hematocrit 34.9 L 29.5 L Mean Corpuscular Volume 93.6 93.9 Mean Corpuscular Hemoglobin 29.0 29.3 Mean Corpuscular Hemoglobin Concent 30.9 L 31.2 L Red Cell Distribution Width 14.5 14.5 Platelet Count 569 H 451 #H Mean Platelet Volume 9.4 9.3 Neutrophils % 80.6 H 69.2 Lymphocytes % 10.4 L 16.8 Monocytes % 8.3 13.3 H Eosinophils % 0.0 0.0 Basophils % 0.2 0.2 Nucleated Red Blood Cells % 0.0 0.0 Neutrophils # 8.5 H 4.6 Lymphocytes # 1.1 1.1 Monocytes # 0.9 0.9 Eosinophils # 0.0 0.0 Basophils # 0.0 0.0 Nucleated Red Blood Cells # 0.0 0.0 Sodium Level 143 144 Potassium Level 4.0 3.5 Chloride Level 98 105 Carbon Dioxide Level 32 H 29 Anion Gap 17 H 14 Blood Urea Nitrogen 12 7 Creatinine 0.38 L 0.41 L Glucose Level 165 126 Calcium Level 10.5 H 8.9 Total Bilirubin 0.0 L 0.0 L Direct Bilirubin 0.00 0.00 Indirect Bilirubin 0.0 0.0 Aspartate Amino Transf (AST/SGOT) 32 21 Alanine Aminotransferase (ALT/SGPT) 34 30 Alkaline Phosphatase 141 H 102 Total Protein 8.0 6.4 # Albumin 3.8 3.1 L Globulin 4.20 H 3.30 H Albumin/Globulin Ratio 0.90 0.93 Urine Color SCAR Urine Clarity TURBID A Urine pH 7.0 Urine Specific [place] 1.011 Urine Ketones NEGATIVE Urine Nitrite NEGATIVE Urine Bilirubin NEGATIVE Urine Urobilinogen NEGATIVE Urine Leukocyte Esterase 3+ H Urine Microscopic RBC 9 H Urine Microscopic WBC > 182 H Urine Hemoglobin 1+ H Urine Glucose NEGATIVE Urine Total Protein 1+ H Phosphorus Level 3.2 Magnesium Level 1.6 L Medications Medications Current Medications Dextrose/Sodium Chloride (D5-1/2ns) 1,000 ml @ 100 mls/hr Q10H IV Last administered on 04/24/17t 10:33; Admin Dose 100 MLS/HR; Start 04/23/17 at 22:30 Ondansetron HCl (Zofran Inj) 4 mg Q6H PRN IV NAUSEA AND/OR VOMITING; Start 04/23 at 22:30 Morphine Sulfate 3 mg 3 mg Q4H PRN IV PAIN Last administered on 04/24/17 02:57 ; Admin Dose 3 MG; Start 04/23/17 at 22:30 Piperacillin Sod/ Tazobactam Sod 100 ml @ 200 mls/hr Q6 IVPB Last administered on 04/24/17 12:22; Admin Dose 200 MLS/HR; Start 04/24/17 at 00:00 Levetiracetam/ Sodium Chloride (Keppra Iv/NS) 105 ml @ 430 mls/hr Q12 IVPB Last administered on 04/24/17 12:22; Admin Dose 430 MLS/HR; Start 04/24/17 at 12: 00 Lorazepam (Ativan) 2 mg Q10MIN PRN IV seizure; Start 04/24/17 at 11:00 Methylprednisolone Sodium Succinate (Solu-Medrol) 20 mg DAILY IV Last administered on 04/24/17 12:22; Admin Dose 20 MG; Start 04/24/17 at 11:30 Folic Acid (Folic Acid) 1 mg DAILY PO ; Start 04/24/17 at 14:30 Multivitamins Therapeutic (Theragran) 1 tab DAILY PO ; Start 04/24/17 at 14:30 Primidone (Mysoline) 250 mg TID PO ; Start 04/24/17 at 21:00; Status UNV Sulfasalazine (Azulfidine) 500 mg QID PO ; Start 04/25/17 at 09:00; Status UNV Miscellaneous Information 40 mg HS PO ; Start 04/24/17 at 21:00; Status UNV SAMANTHA KAPLAN Apr 24, 2017 14:31
[2017-04-24] MEDS: PRIMIDONE 250 MG TAB PO SCH ×2 (15:00→20:22)
--- NOTE | 2017-04-24 16:15 | CONS ---
Date/Time of Note Date/Time of Note DATE: 04/24/17 TIME: 16:10 Assessment/Plan Assessment/Plan Chief Complaint/Hosp Course History of brain tumor History of pelvic mass INCOMPLETE RECORD WOULD TREAT AN INFECTION, AND RESCAN LATER CHECK TUMOR MARKERS Large diverticular abscess CT- Findings suggestive of large diverticular abscess in the central pelvis, measuring approximately 11 cm in maximal dimension. No bowel obstruction or free intraperitoneal air is identified. Sepsis, stable UTI Anemia History of seizure disorder Severe rheumatoid arthritis Sjogren's syndrome Problems: Consultation Date/Type/Reason Admit Date/Time Apr 23, 2017 at 20:40 Date of Consultation: Apr 24, 2017 Type of Consultation: HEMEONC Reason for Consultation POS PELVIC MASS Referring Provider: SAMANTHA KAPLAN Hx of Present Illness This a 56-year-old female who has had 2 weeks of left lower abdominal pain. The patient had a CAT scan that showed a pelvic mass and followed up with her doctor had an MRI demonstrating a diverticular abscess 11 x 9 cm. The patient says she is not having any fever diarrhea vomiting but does have a constant fullness in her pelvis left lower quadrant. Patient was given the MRI results today by her physician told to come to the hospital for treatment of the abscess. She is not having any weight loss night sweats or chills I WAS ASKED TO PROVIDE HEMEONC CONSULT RE POS PELVIC MASS AND UNDERLYING SUAD ROS All systems reviewed and are negative except as per history of present illness. Medications Home Meds Active Scripts Ciprofloxacin Hcl* (Ciprofloxacin Hcl*) 500 Mg Tablet, 500 MG PO BID for 14 Days , TAB Prov:KEVEN JOHNSON PA-C 03/23/17 Reported Medications Sulfasalazine (Azulfidine) 500 Mg Tab, 500 MG PO QID for 30 Days, #120 TAB 04/23/17 Prednisone* (Prednisone*) 10 Mg Tab, 30 MG PO DAILY, TAB 04/23/17 Ibuprofen* (Ibuprofen*) 800 Mg Tab, 800 MG PO Q6H Y for PAIN, TAB 04/23/17 Carbamazepine* (Carbamazepine* XR) 200 Mg Tab.er.12h, 500 MG PO TID, #60 TAB.SA 04/23/17 Multivitamins* (Once Daily*) 1 Tab Tablet, 1 TAB PO DAILY, TAB 05/21/15 Methotrexate* (Methotrexate*) 2.5 Mg Tab, 20 MG PO every 7 days, TAB Saturdays05/21/15 Simvastatin (Simvastatin) 40 Mg Tablet, 40 MG PO HS, TAB 05/21/15 Primidone* (Mysoline*) 250 Mg Tablet, 250 MG PO TID 01/24/13 Folic Acid* (Folic Acid*) 1 Mg Tablet, 1 MG PO DAILY 01/24/13 Calcium Carbonate/Vitamin D3 (Calcium Carb 500 Mg Tab Chew) 1 Tab.chew Tab.chew , PO BID 07/07/11 Discontinued Reported Medications Acetaminophen* (Acetaminophen*) 500 MG Extra Strength Tablet, 1000 MG PO Q6H Y for PAIN, TAB 05/21/15 Prednisone* (Prednisone*) 1 Mg Tablet, 3 MG PO DAILY, TAB 05/21/15 Carbamazepine* (Carbamazepine* XR) 100 Mg Cpmp.12hr, 500 MG PO TID, CAP 05/21/15 Discontinued Scripts Phenazopyridine Hcl* (Pyridium*) 100 Mg Tab, 100 MG PO TID Y for URINARY PAIN, # 8 TAB Prov:KEVEN JOHNSON PA-C 03/23/17 Loperamide Hcl* (Imodium*) 2 Mg Capsule, 2 MG PO .AFTER EA LOOSE BM Y for DIARRHEA, #10 TAB Prov:REYNOLD COOMBS 04/25/16 Electrolyte,Oral (Pedialyte) 1,000 Ml Solution, 100 ML PO Q6 Y for DIARRHEA for 4 Days, ML Prov:REYNOLD COOMBS 04/25/16 Ciprofloxacin Hcl* (Ciprofloxacin Hcl*) 500 Mg Tablet, 500 MG PO BID for 7 Days , TAB Prov:REYNOLD COOMBS 04/25/16 Ibuprofen* (Ibuprofen*) 600 Mg Tablet, 600 MG PO Q6, #30 TAB Prov:GUEVARA LAURENT 05/22/15 Allergies Allergies: Coded Allergies: No Known Drug Allergies (Verified Allergy, Unknown, 04/23/17) PMhx/Soc History of Surgery: Yes (TAHBSO, BRAIN TUMOR) Anesthesia Reaction: No Hx 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 Disorder: Yes Hx Respiratory Disorders: No Hx Cardiac Disorders: Yes Hx Psychiatric Problems: No Hx Miscellaneous Medical Probl: Yes (RA, LUPUS, GALLSTONES, UTI) Hx Alcohol Use: No Hx Substance Use: No Hx Tobacco Use: No Smoking Status: Never smoker FmHx Family History: No coronary disease Physical Exam Vitals Vital Signs Date Time Temp Pulse Resp B/P Pulse Ox O2 Delivery O2 Flow Rate FiO2 04/23/17 18:30 81 20 119/62 97 Room Air 04/23/17 11:52 98.2 95 18 117/58 97 Constitutional: febrile, No chills ENT: No bleeding Respiratory: No cough, No shortness of breath Cardiovascular: No chest pain, No lightheadedness Gastrointestinal: No diarrhea Genitourinary: No flank pain Musculoskeletal: neck pain Skin: No rash Neurologic: No focal-weakness, No headache Endocrine: No polydypsia, No polyuria Psychological: anxiety, no complaints Social History Alcohol Use: none Smoking Status: Never smoker Exam/Review of Systems Vital Signs Vitals Vital Signs Date Time Temp Pulse Resp B/P Pulse Ox O2 Delivery O2 Flow Rate FiO2 04/24/17 08:10 98.4 89 16 125/58 96 04/23/17 21:07 Room Air Intake and Output 04/23/17 04/23/17 04/24/17 15:00 23:00 07:00 Intake Total 700 ml Output Total 250 ml Balance 450 ml Exam Physical Exam Const: Well-developed, well-nourished Head: Atraumatic, normocephalic Eyes: Normal Conjunctiva, PERRLA, EOMI, normal sclera, no nystagmus ENT: Normal External Ears, Nose and Mouth, moist mucus membranes. Neck: Full range of motion. No meningismus, no lymphadenopathy. Resp: Clear to auscultation bilaterally, no wheezing, rhonchi, rales Cardio: Regular rate and rhythm, no murmurs, S1 S2 present Abd: Soft, left lower quadrant suprapubic tenderness mild, non distended. Normal bowel sounds, no guarding or rebound, no pulsitile abdominal masses or bruits, cannot appreciate mass to her obesity Skin: No petechiae or rashes, no ecchymosis , no maculopapular rash Back: No midline or flank tenderness Ext: No cyanosis, or edema, FROM x 4, normal inspection, neurovascularly intact x 4 Neur: Awake and alert, STR 5/5 x 4, sensation intact x 4, no focal findings, cerebellum intact Psych: Normal Mood and Affect Results Result Diagram: 04/24/17 0510 04/24/17 0510 Results 24 hrs Laboratory Tests Test 04/23/17 16:25 04/23/17 17:25 04/24/17 05:10 White Blood Count 10.6 # 6.6 # Red Blood Count 3.73 L 3.14 L Hemoglobin 10.8 L 9.2 L Hematocrit 34.9 L 29.5 L Mean Corpuscular Volume 93.6 93.9 Mean Corpuscular Hemoglobin 29.0 29.3 Mean Corpuscular Hemoglobin Concent 30.9 L 31.2 L Red Cell Distribution Width 14.5 14.5 Platelet Count 569 H 451 #H Mean Platelet Volume 9.4 9.3 Neutrophils % 80.6 H 69.2 Lymphocytes % 10.4 L 16.8 Monocytes % 8.3 13.3 H Eosinophils % 0.0 0.0 Basophils % 0.2 0.2 Nucleated Red Blood Cells % 0.0 0.0 Neutrophils # 8.5 H 4.6 Lymphocytes # 1.1 1.1 Monocytes # 0.9 0.9 Eosinophils # 0.0 0.0 Basophils # 0.0 0.0 Nucleated Red Blood Cells # 0.0 0.0 Sodium Level 143 144 Potassium Level 4.0 3.5 Chloride Level 98 105 Carbon Dioxide Level 32 H 29 Anion Gap 17 H 14 Blood Urea Nitrogen 12 7 Creatinine 0.38 L 0.41 L Glucose Level 165 126 Calcium Level 10.5 H 8.9 Total Bilirubin 0.0 L 0.0 L Direct Bilirubin 0.00 0.00 Indirect Bilirubin 0.0 0.0 Aspartate Amino Transf (AST/SGOT) 32 21 Alanine Aminotransferase (ALT/SGPT) 34 30 Alkaline Phosphatase 141 H 102 Total Protein 8.0 6.4 # Albumin 3.8 3.1 L Globulin 4.20 H 3.30 H Albumin/Globulin Ratio 0.90 0.93 Urine Color SCAR Urine Clarity TURBID A Urine pH 7.0 Urine Specific [place] 1.011 Urine Ketones NEGATIVE Urine Nitrite NEGATIVE Urine Bilirubin NEGATIVE Urine Urobilinogen NEGATIVE Urine Leukocyte Esterase 3+ H Urine Microscopic RBC 9 H Urine Microscopic WBC > 182 H Urine Hemoglobin 1+ H Urine Glucose NEGATIVE Urine Total Protein 1+ H Phosphorus Level 3.2 Magnesium Level 1.6 L Medications Medications Current Medications Dextrose/Sodium Chloride (D5-1/2ns) 1,000 ml @ 100 mls/hr Q10H IV Last administered on 04/24/17t 10:33; Admin Dose 100 MLS/HR; Start 04/23/17 at 22:30 Ondansetron HCl (Zofran Inj) 4 mg Q6H PRN IV NAUSEA AND/OR VOMITING; Start 04/23 at 22:30 Morphine Sulfate 3 mg 3 mg Q4H PRN IV PAIN Last administered on 04/24/17 02:57 ; Admin Dose 3 MG; Start 04/23/17 at 22:30 Piperacillin Sod/ Tazobactam Sod 100 ml @ 200 mls/hr Q6 IVPB Last administered on 04/24/17 12:22; Admin Dose 200 MLS/HR; Start 04/24/17 at 00:00 Levetiracetam/ Sodium Chloride (Keppra Iv/NS) 105 ml @ 430 mls/hr Q12 IVPB Last administered on 04/24/17 12:22; Admin Dose 430 MLS/HR; Start 04/24/17 at 12: 00 Lorazepam (Ativan) 2 mg Q10MIN PRN IV seizure; Start 04/24/17 at 11:00 Methylprednisolone Sodium Succinate (Solu-Medrol) 20 mg DAILY IV Last administered on 04/24/17 12:22; Admin Dose 20 MG; Start 04/24/17 at 11:30 Folic Acid (Folic Acid) 1 mg DAILY PO ; Start 04/24/17 at 14:30 Multivitamins Therapeutic (Theragran) 1 tab DAILY PO ; Start 04/24/17 at 14:30 Primidone (Mysoline) 250 mg TID PO ; Start 04/24/17 at 15:00 Sulfasalazine (Azulfidine) 500 mg QID PO ; Start 04/24/17 at 17:00 Atorvastatin Calcium (Lipitor) 20 mg DAILY@21 PO ; Start 04/24/17 at 21:00 Procedures Procedures [place] [id number] Radiology Main Line: [phone] DIAGNOSTIC IMAGING REPORT Patient: ILIA CONSTANTINO : 1960 Age: 56 Sex: F MR #: [id number] DOS: 04/23/17 1617 Ordering MD: FAWN SHAH DO Location: E/R Room/Bed: PROCEDURE: CT Abdomen and Pelvis with contrast. CLINICAL INDICATION: Abdominal pain TECHNIQUE: CT of the abdomen and pelvis was performed on a multi-detector scanner following the uncomplicated IV administration of 85 cc of Omnipaque 300. Coronal and sagittal images were reformatted from the axial data set. One or more of the following dose reduction techniques were used: automated exposure control, adjustment of the mA and/or kV according to patient size, use of iterative reconstruction technique. CTDI = 16.53 mGy. DLP = 836.91 mGy- cm. COMPARISON: CT, 01/24/2013 FINDINGS: CT abdomen: The lung bases are clear. The heart size is normal, without pericardial effusion. Gallbladder is surgically absent. Liver, biliary tree, pancreas, spleen, adrenal glands and right kidney are unremarkable. Nonobstructive left renal calculus is seen, without ureterolithiasis or obstructive uropathy. The stomach is grossly unremarkable. There is no abdominal aortic aneurysm or dissection. There is no retroperitoneal lymphadenopathy. The isha hepatis region is clear. CT pelvis: Multilocular gas and fluid collection is identified in the central pelvis, measuring approximately 11 x 9 x 8 cm (3-127), compatible with abscess. Collection is directly adjacent to sigmoid colon, likely representing diverticular abscess. No bowel obstruction or free intraperitoneal air is seen. The patient is status post appendectomy. Bowel containing lower abdominal ventral hernia is noted, without incarceration. Urinary bladder is not well visualized. Uterus is surgically absent. No solid pelvic mass or lymphadenopathy is identified. The surrounding osseous structures are remarkable for diffuse degenerative enthesopathy of the spine. There are multilevel mild to moderate chronic compression deformities throughout the visualized thoracolumbar spine. No osteolytic or osteoblastic lesion is detected. IMPRESSION: 1. Findings suggestive of large diverticular abscess in the central pelvis, measuring approximately 11 cm in maximal dimension. No bowel obstruction or free intraperitoneal air is identified. Urinary bladder is not well visualized. 2. Gallbladder and uterus are surgically absent. 3. Bowel containing lower abdominal ventral hernia is noted, without obstruction or incarceration. 4. Nonobstructive left renal calculus is noted, without ureterolithiasis or obstructive uropathy. RPTAT: EE .Jose Manuel Pratt MD, MD Date Time Electronically viewed and signed by .Jose Manuel Pratt MD, MD on 04/23/2017 17: 58 .R/ CC: FAWN SHAH VERA M MD Apr 24, 2017 16:15
[2017-04-24 16:32] VITALS: BP 120/59; RESP 16
[2017-04-24] MEDS: SULFASALAZINE 500 MG TAB PO SCH ×2 (17:00→20:22)
--- NOTE | 2017-04-24 17:05 | CONS ---
Date/Time of Note Date/Time of Note DATE: 04/24/17 TIME: 16:44 Assessment/Plan Assessment/Plan Chief Complaint/Hosp Course ID PROGRESS NOTE CURRENT ABX: Zosyn #1 s/p Ertapenem x1 04/23 1600 24 HOUR INTERVAL SUMMARY * A/A/O ->sitting up in chair, son present for [place] translation, she is afebrile, has pain LLQ, (+)mild headache. UA (+)Pyuria. * VSS, no fevers, patient wants to eat * Son and patient express concern, appear anxious, they do not understand "why did I bring mom to the hospital if they are not going to take her to surgery." "Why can't mom eat if not going to surgery." Exam Constitutional: alert, oriented, well developed Head: atraumatic, normocephalic Eyes: EOMI, PERRL Respiratory: clear to auscultation, normal air movement Cardiovascular: nl pulses, regular rate and rhythm Gastrointestinal: Soft, (+)tender LLQ, (+)BS Extremities: normal pulses 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: nl mental status, nl speech, nl strength ID ASSESSMENT 56 yo obese Guatemalan speaking F admit with: 1. SIRS w/increased Neuts% = left shift on WBC, no fevers, VSS 2. Acute large diverticular abscess in the central pelvis, measuring approximately 11 cm in maximal dimension. 3. UTI per UA 3+ Leuk-Esterase, >182 pyuria, 9RBC -> Micro pending 4. Nonobstructive left renal calculus is noted, without ureterolithiasis or obstructive uropathy=> PER CT 5. Bowel containing lower abdominal ventral hernia is noted, without obstruction or incarceration=> PER CT 6. PSHx: s/p Cholecystectomy (2013) /Hysterectomy(2011) / Head surgery "mass"( 1996) 7. Osteoporosis 8. Osteoarthritis 9. Rheumatoid arthritis CURRENT ABX: Zosyn #1 s/p Ertapenem x1 04/23 1600 ID RECOMMENDATIONS 1. Continue Zosyn 2. PATIENT/SON EDUCATION: * I reassured the son who translated into [place] that he did the right thing by bringing her to the hospital -- explained he brought her here because she has UTI and diverticular abscess. Encouraged son that the priority for mom right now is 24-48H minimum IV ABX -- the goal/plan is to get her acute symptoms , including UTI, under control and ensure that she does not have bacteria in her blood -- cultures are pending. Explained it is important the the surgeon has the ABX onboard and working with UTI cleared prior to taking to surgery. Assured son that he did the right thing by brining mom in -- that there is NO urgency to go to surgery, priority is to get the ABX onboard prior to surgery. In fact, explained to him that some abscesses can be treated conservatively with IV ABX alone; in this case please await for the ABX to do their job. * Explained to son that patient must remain NPO while she is on observation status -- her situation may change, may require urgent surgery or not. This is the process, and best to relax and trust the providers. Also advised son, food in the belly with abscess can lead to pain. Encouraged him to assure mom that this is the prudent medical course of action. * *Son appears anxious, frustrated, after I explained situation he is able to repeat understanding; however anxiety/frustration persist. Again, I reassured him the best I could that mom is stable and she is receiving PRIORITY TREATMENT WITH IV ABX. This is the standard of care. Advised son ID team will follow daily and give him updates. Son thanks me for the information. Problems: Consultation Date/Type/Reason Admit Date/Time Apr 23, 2017 at 20:40 Initial Consult Date 04/24/17 Type of Consultation: ID Referring Provider: SAMANTHA KAPLAN Exam/Review of Systems Vital Signs Vitals Vital Signs Date Time Temp Pulse Resp B/P Pulse Ox O2 Delivery O2 Flow Rate FiO2 04/24/17 16:32 98.9 86 16 120/59 96 04/23/17 21:07 Room Air Intake and Output 04/23/17 04/23/17 04/24/17 15:00 23:00 07:00 Intake Total 700 ml Output Total 250 ml Balance 450 ml Results Result Diagram: 04/24/17 0510 04/24/17 0510 Results 24 hrs Laboratory Tests Test 04/23/17 17:25 04/24/17 05:10 Urine Color SCAR Urine Clarity TURBID A Urine pH 7.0 Urine Specific [place] 1.011 Urine Ketones NEGATIVE Urine Nitrite NEGATIVE Urine Bilirubin NEGATIVE Urine Urobilinogen NEGATIVE Urine Leukocyte Esterase 3+ H Urine Microscopic RBC 9 H Urine Microscopic WBC > 182 H Urine Hemoglobin 1+ H Urine Glucose NEGATIVE Urine Total Protein 1+ H White Blood Count 6.6 # Red Blood Count 3.14 L Hemoglobin 9.2 L Hematocrit 29.5 L Mean Corpuscular Volume 93.9 Mean Corpuscular Hemoglobin 29.3 Mean Corpuscular Hemoglobin Concent 31.2 L Red Cell Distribution Width 14.5 Platelet Count 451 #H Mean Platelet Volume 9.3 Neutrophils % 69.2 Lymphocytes % 16.8 Monocytes % 13.3 H Eosinophils % 0.0 Basophils % 0.2 Nucleated Red Blood Cells % 0.0 Neutrophils # 4.6 Lymphocytes # 1.1 Monocytes # 0.9 Eosinophils # 0.0 Basophils # 0.0 Nucleated Red Blood Cells # 0.0 Sodium Level 144 Potassium Level 3.5 Chloride Level 105 Carbon Dioxide Level 29 Anion Gap 14 Blood Urea Nitrogen 7 Creatinine 0.41 L Glucose Level 126 Calcium Level 8.9 Phosphorus Level 3.2 Magnesium Level 1.6 L Total Bilirubin 0.0 L Direct Bilirubin 0.00 Indirect Bilirubin 0.0 Aspartate Amino Transf (AST/SGOT) 21 Alanine Aminotransferase (ALT/SGPT) 30 Alkaline Phosphatase 102 Total Protein 6.4 # Albumin 3.1 L Globulin 3.30 H Albumin/Globulin Ratio 0.93 Medications Medications Current Medications Dextrose/Sodium Chloride (D5-1/2ns) 1,000 ml @ 100 mls/hr Q10H IV Last administered on 04/24/17 10:33; Admin Dose 100 MLS/HR; Start 04/23/17 at 22:30 Ondansetron HCl (Zofran Inj) 4 mg Q6H PRN IV NAUSEA AND/OR VOMITING; Start 04/23 at 22:30 Morphine Sulfate 3 mg 3 mg Q4H PRN IV PAIN Last administered on 04/24/17 02:57 ; Admin Dose 3 MG; Start 04/23/17 at 22:30 Piperacillin Sod/ Tazobactam Sod 100 ml @ 200 mls/hr Q6 IVPB Last administered on 04/24/17 12:22; Admin Dose 200 MLS/HR; Start 04/24/17 at 00:00 Levetiracetam/ Sodium Chloride (Keppra Iv/NS) 105 ml @ 430 mls/hr Q12 IVPB Last administered on 04/24/17 12:22; Admin Dose 430 MLS/HR; Start 04/24/17 at 12: 00 Lorazepam (Ativan) 2 mg Q10MIN PRN IV seizure; Start 04/24/17 at 11:00 Methylprednisolone Sodium Succinate (Solu-Medrol) 20 mg DAILY IV Last administered on 04/24/17t 12:22; Admin Dose 20 MG; Start 04/24/17 at 11:30 Folic Acid (Folic Acid) 1 mg DAILY PO ; Start 04/24/17 at 14:30 Multivitamins Therapeutic (Theragran) 1 tab DAILY PO ; Start 04/24/17 at 14:30 Primidone (Mysoline) 250 mg TID PO ; Start 04/24/17 at 15:00 Sulfasalazine (Azulfidine) 500 mg QID PO ; Start 04/24/17 at 17:00 Atorvastatin Calcium 20 mg 20 mg DAILY@21 PO ; Start 04/24/17 at 21:00 Acetaminophen (Ofirmev 1000mg/ 100ml Iv) 100 ml @ 400 mls/hr ONCE ONCE IVPB ; Start 04/24/17 at 17:00; Stop 04/24/17 at 17:14 THELMA FULTON NP Apr 24, 2017 17:05 THELMA FULTON NP Apr 24, 2017 17:05
[2017-04-24 19:36] VITALS: BP 115/67; RESP 18
[2017-04-24 19:40] VITALS: BP 98/57; RESP 16
[2017-04-24] MEDS: ATORVASTATIN 20 MG TAB PO SCH (20:22)
[2017-04-24] MEDS ORDERED: NON-FORMULARY/PATIENT OWN MED (Simvastatin 40 MG) PO SCH (21:00)
[2017-04-25] MEDS: PIPER-TAZO 3.375 GM IV (PMX) 100 ML IVPB SCH ×5 (00:11→23:58)
[2017-04-25] MEDS: DEXTROSE 5%-0.45% NACL 1,000 ML IV SCH ×2 (02:21→15:42)
[2017-04-25] MEDS: morphine 4 MG/ML VIAL IV PRN ×3 (02:21→10:52)
[2017-04-25 02:27] VITALS: BP 123/67; RESP 16
--- NOTE | 2017-04-25 04:11 | CONS ---
DATE OF ADMISSION: 04/23/2017 DATE OF CONSULTATION: 04/24/2017 INFECTIOUS DISEASE CONSULTATION REASON FOR CONSULTATION: Antibiotic management. HISTORY OF PRESENT ILLNESS: Martha Santana is a 56-year-old female who comes in with infected pelvic mass status post hysterectomy, oophorectomy, and omentectomy. Other problems include: 1. History of severe rheumatoid arthritis. 2. Sjogren syndrome. 3. Osteoporosis. 4. Seizure disorder. 5. Reported brain tumor, status post surgery. 6. She reported abdominal pain of about 2 months; duration. She saw her PMD and had an MRI that shows large diverticular abscess and as such was instructed to come to the Emergency Room for evaluation. The abdominal pain is diffuse, on the right side of her abdomen, and in the epigastric area. She has subjective fever, generalized weakness. Denies diarrhea. In the ER, a CT scan of the abdomen and pelvis showed large diverticular abscess in the central pelvis. Her white count was 11.6, hemoglobin 9.2, hematocrit 29.5, and platelet count of 451,000. BUN 78, creatinine 0.4. The patient was started on Zosyn. HOSPITAL COURSE: She was seen by Dr. De Los Santos's PA who noted central pelvic abscess, significant history of pelvic cancer, concern for malignancy on IR drainage biopsy, questionable oncology consult. She has a UTI which shows multi-organism pathogens, antibiotics per sensitivity, normocytic anemia, no acute bleed noted, monitor and transfuse as needed. Hypomagnesemia, replete and monitor. History of pelvic CA and brain tumor. PAST MEDICAL HISTORY: Essentially as outlined. She has severe rheumatoid arthritis. She had a mucinous adenocarcinoma pelvic tumor. She had reported brain tumor, status post surgery. She has a seizure disorder. PAST SURGICAL HISTORY: Operations as outlined. FAMILY HISTORY: Noncontributory. SOCIAL HISTORY: She does not smoke, drink or abuse drugs. ALLERGIES: NONE TO PENICILLIN, SULFA OR FOODS. MEDICATION: Per chart review. REVIEW OF SYSTEMS: As per HPI. PHYSICAL EXAMINATION: GENERAL: The patient is a well-developed, well-nourished, anxious female who is alert, responsive, and in no acute distress. VITAL SIGNS: Stable. She is afebrile. SKIN: Without generalized rash. HEENT: Within normal limits. NECK: Supple. Lymph nodes nonpalpable. CHEST: Decreased breath sounds at the bases. HEART: Without murmur or gallop. ABDOMEN: Soft, slightly tender. She has surgical scars. Mild tenderness in the epigastric region and on the right side of the abdomen. GENITALIA: Exam deferred. RECTAL: Exam deferred. EXTREMITIES: Without cyanosis, clubbing, or edema. NEUROLOGIC: No focal neurological abnormalities. LABORATORY: Her laboratory today shows white count of 6.6. Urine, 3-plus leukocyte esterase, greater than 182 white cells per high-powered field. IMPRESSION AND PLAN: The patient may require interventional radiology in order to drain an abscess. This would be ideal. If not, then a laparoscopic procedure would be in order. We will continue her on current therapy. Blood cultures have been done. I will dictate my findings to the hospitalist and to Dr. Deejay Berkowitz. Dictated By: Rohan Jackson MD JD/brandon/clovis /Document#: [id number]
[2017-04-25 06:46] LABS: BASOPHILS % 0.4 % (0.0-2.0); EOSINOPHILS % 0.1 % (0.0-7.0); HEMATOCRIT 31.5 % (37.0-47.0); HEMOGLOBIN 9.9 g/dl (12.0-16.0); LYMPHOCYTES # 1.1 10^3/ul (0.8-2.9); LYMPHOCYTES % 14.1 % (15.0-51.0); MEAN CORPUSCULAR HEMOGLOBIN 29.7 pg (29.0-33.0); MEAN CORPUSCULAR HGB CONC 31.4 g/dl (32.0-37.0); MEAN CORPUSCULAR VOLUME 94.6 fl (82.0-101.0); MEAN PLATELET VOLUME 9.1 fl (7.4-10.4); MONOCYTE # 0.8 10^3/ul (0.3-0.9); NEUTROPHILS % 74.9 % (39.0-77.0); PLATELET COUNT 452 10^3/UL (140-415); RED BLOOD COUNT 3.33 10^6/ul (4.20-5.40); RED CELL DISTRIBUTION WIDTH 14.3 % (11.5-14.5)
[2017-04-25 06:57] LABS: IRON 37 ug/dl (35-150)
[2017-04-25 07:07] LABS: TOTAL IRON BINDING CAPACITY 162 ug/dl (241-421)
[2017-04-25 07:25] VITALS: BP 125/61; RESP 18
[2017-04-25 07:35] LABS: CREATININE 0.38 mg/dl (0.44-1.00); MAGNESIUM 1.6 mg/dl (1.7-2.5); PHOSPHORUS 3.5 mg/dl (2.5-4.9); POTASSIUM 3.9 mmol/L (3.5-5.1)
[2017-04-25 07:41] LABS: CANCER ANTIGEN 125 5.6 U/ml (0.0-35.0); CARCINOEMBRYONIC ANTIGEN 9.3 ng/ml (0.0-5.0)
[2017-04-25] MEDS: MULTIVITAMINS THERAPEUTIC TAB PO SCH (09:00)
[2017-04-25] MEDS: FOLIC ACID 1 MG TAB PO SCH (09:00)
[2017-04-25] MEDS: PRIMIDONE 250 MG TAB PO SCH ×4 (09:00→21:58)
[2017-04-25] MEDS: SULFASALAZINE 500 MG TAB PO SCH ×4 (09:00→21:58)
[2017-04-25] MEDS: METHYLPREDNISOLONE 40 MG INJ IV SCH (09:23)
[2017-04-25] MEDS: TERIPARATIDE 600 MCG/2.4 ML SC SCH (09:23)
[2017-04-25] MEDS: LEVETIRACETAM IV 500 MG in SOD CHLORIDE 0.9% 100 ML IVPB SCH ×2 (10:51→21:58)
--- NOTE | 2017-04-25 13:52 | PN ---
Date/Time of Note Date/Time of Note DATE: 04/25/17 TIME: 13:50 Assessment/Plan VTE Prophylaxis VTE Prophylaxis Intervention: ambulation Lines/Catheters IV Catheter Type (from Nrsg): Peripheral IV Assessment/Plan Chief Complaint/Hosp Course Patient is a 56-year-old female with past medical history significant for pelvic mass status post hysterectomy and bilateral salpingo-oophorectomy with omentectomy and severe rheumatoid arthritis who presents to [facility] for abdominal pain and her physician sent her after he found a large diverticular abscess. Assessment and problem list Large diverticular abscess Sepsis, stable UTI Anemia History of seizure disorder History of brain tumor History of pelvic mass Severe rheumatoid arthritis Sjogren's syndrome Plan -General surgery has seen the patient, still pending recs. NPO until surgery clears for diet -Patient to resume home meds as able, patient will need to bring home [place] -Continue symptomatic care, pain management as necessary -Oncology has also been consulted for possible mass and malignancy given patient 's history of multiple masses in the pelvis and in the brain. Does not feel it is a malignancy at this point. -Follow-up with repeat labs and monitor closely Problems: Subjective 24 Hr Interval Summary Free Text/Dictation wants to eat. Exam/Review of Systems Vital Signs Vitals Vital Signs Date Time Temp Pulse Resp B/P Pulse Ox O2 Delivery O2 Flow Rate FiO2 04/25/17 07:25 98.4 89 18 125/61 94 04/23/17 21:07 Room Air Intake and Output 04/24/17 04/24/17 04/25/17 15:00 23:00 07:00 Intake Total 705 ml 905 ml 890 ml Balance 705 ml 905 ml 890 ml Exam Physical exam General: Patient is laying in bed and answers questions appropriately Mentation: Patient is alert and oriented 4, Head: Normocephalic atraumatic Eyes: EOMI, pupils reactive to light Neck: Supple, nontender, midline Respiratory: Clear to auscultation bilaterally Cardiovascular: regular rate, no obvious murmurs Gastrointestinal: mildly tender to palpation, bowel sounds heard. 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: Moves all extremities spontaneously Skin: No new skin lesions Results Result Diagram: 04/25/17 0557 04/25/17 0558 Results 24 hrs Laboratory Tests Test 04/25/17 05:57 04/25/17 05:58 White Blood Count 8.0 # Red Blood Count 3.33 L Hemoglobin 9.9 L Hematocrit 31.5 L Mean Corpuscular Volume 94.6 Mean Corpuscular Hemoglobin 29.7 Mean Corpuscular Hemoglobin Concent 31.4 L Red Cell Distribution Width 14.3 Platelet Count 452 H Mean Platelet Volume 9.1 Neutrophils % 74.9 Lymphocytes % 14.1 L Monocytes % 10.0 Eosinophils % 0.1 Basophils % 0.4 Nucleated Red Blood Cells % 0.0 Neutrophils # 6.0 Lymphocytes # 1.1 Monocytes # 0.8 Eosinophils # 0.0 Basophils # 0.0 Nucleated Red Blood Cells # 0.0 Carcinoembryonic Antigen 9.3 H CA 125 Antigen 5.6 Sodium Level 146 H Potassium Level 3.9 Chloride Level 107 Carbon Dioxide Level 27 Anion Gap 16 Blood Urea Nitrogen 4 L Creatinine 0.38 L Glucose Level 119 Calcium Level 9.0 Phosphorus Level 3.5 Magnesium Level 1.6 L Iron Level 37 Total Iron Binding Capacity 162 L Percent Iron Saturation 23 Ferritin 141.0 Medications Medications Current Medications Dextrose/Sodium Chloride (D5-1/2ns) 1,000 ml @ 100 mls/hr Q10H IV Last administered on 04/25/17 02:21; Admin Dose 100 MLS/HR; Start 04/23/17 at 22:30 Ondansetron HCl (Zofran Inj) 4 mg Q6H PRN IV NAUSEA AND/OR VOMITING; Start 04/23 at 22:30 Morphine Sulfate 3 mg 3 mg Q4H PRN IV PAIN Last administered on 04/25/17 10:52 ; Admin Dose 3 MG; Start 04/23/17 at 22:30 Piperacillin Sod/ Tazobactam Sod 100 ml @ 200 mls/hr Q6 IVPB Last administered on 04/25/17 12:46; Admin Dose 200 MLS/HR; Start 04/24/17 at 00:00 Levetiracetam/ Sodium Chloride (Keppra Iv/NS) 105 ml @ 430 mls/hr Q12 IVPB Last administered on 04/25/17 10:51; Admin Dose 430 MLS/HR; Start 04/24/17 at 12: 00 Lorazepam (Ativan) 2 mg Q10MIN PRN IV seizure; Start 04/24/17 at 11:00 Methylprednisolone Sodium Succinate (Solu-Medrol) 20 mg DAILY IV Last administered on 04/25/17 09:23; Admin Dose 20 MG; Start 04/24/17 at 11:30 Folic Acid (Folic Acid) 1 mg DAILY PO ; Start 04/24/17 at 14:30 Multivitamins Therapeutic (Theragran) 1 tab DAILY PO ; Start 04/24/17 at 14:30 Primidone (Mysoline) 250 mg TID PO ; Start 04/24/17 at 15:00 Sulfasalazine (Azulfidine) 500 mg QID PO ; Start 04/24/17 at 17:00 Atorvastatin Calcium (Lipitor) 20 mg DAILY@21 PO ; Start 04/24/17 at 21:00 Non-Formulary Medication 1 DOSE = 20 mcg/ 0.08ml DAILY SC Last administered on 04/25/17 09:23; Admin Dose 1 EA; Start 04/25/17 at 09:00 SAMANTHA KAPLAN Apr 25, 2017 13:52
[2017-04-25 14:00] VITALS: BP 117/67; RESP 18
[2017-04-25] MEDS ORDERED: MAGNESIUM SULFATE 2 GM/50 ML 50 ML IVPB ONE (18:00)
--- NOTE | 2017-04-25 19:41 | CONS ---
Date/Time of Note Date/Time of Note DATE: 04/25/17 TIME: 19:28 Assessment/Plan Assessment/Plan Chief Complaint/Hosp Course ID PROGRESS NOTE CURRENT ABX: Zosyn #2 s/p Ertapenem x1 04/23 1600 24 HOUR INTERVAL SUMMARY * Tmax 99.0, WBC normalized, still has ABD pain, waiting for decision on surgery Exam Constitutional: alert, oriented, well developed Head: atraumatic, normocephalic Eyes: EOMI, PERRL Respiratory: clear to auscultation, normal air movement Cardiovascular: nl pulses, regular rate and rhythm Gastrointestinal: Soft, (+)tender LLQ, (+)BS Extremities: normal pulses 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: nl mental status, nl speech, nl strength ID ASSESSMENT 56 yo obese Vincentian speaking F admit with: 1. SIRS w/increased Neuts% = left shift on WBC, no fevers, VSS 2. Acute large diverticular abscess in the central pelvis, measuring approximately 11 cm in maximal dimension. * DDx infected pelvic mass pelvic cancer=> Hx of of carcinoma ->s/p hysterectomy , oophorectomy, and omentectomy. * Hx of mucinous adenocarcinoma pelvic tumor=> Per GI she has had a 10-15# weight loss in 3 weeks? 3. UTI per UA 3+ Leuk-Esterase, >182 pyuria, 9RBC -> Micro pending 4. Nonobstructive left renal calculus is noted, without ureterolithiasis or obstructive uropathy=> PER CT 5. Bowel containing lower abdominal ventral hernia is noted, without obstruction or incarceration=> PER CT 6. PSHx: s/p Cholecystectomy (2013) /Hysterectomy(2011) / Head surgery "mass"( 1996) 7. Osteoporosis 8. Osteoarthritis 9. Rheumatoid arthritis CURRENT ABX: Zosyn #2 s/p Ertapenem x1 04/23 1600 ID RECOMMENDATIONS 1. Continue Zosyn 2. 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 . Problems: Consultation Date/Type/Reason Admit Date/Time Apr 23, 2017 at 20:40 Initial Consult Date 04/24/17 Type of Consultation: ID Referring Provider: SAMANTHA KAPLAN Exam/Review of Systems Vital Signs Vitals Vital Signs Date Time Temp Pulse Resp B/P Pulse Ox O2 Delivery O2 Flow Rate FiO2 04/25/17 14:00 99.0 94 18 117/67 95 04/23/17 21:07 Room Air Intake and Output 04/24/17 04/24/17 04/25/17 15:00 23:00 07:00 Intake Total 705 ml 905 ml 890 ml Balance 705 ml 905 ml 890 ml Results Result Diagram: 04/25/17 0557 04/25/17 0558 Results 24 hrs Laboratory Tests Test 04/25/17 05:57 04/25/17 05:58 White Blood Count 8.0 # Red Blood Count 3.33 L Hemoglobin 9.9 L Hematocrit 31.5 L Mean Corpuscular Volume 94.6 Mean Corpuscular Hemoglobin 29.7 Mean Corpuscular Hemoglobin Concent 31.4 L Red Cell Distribution Width 14.3 Platelet Count 452 H Mean Platelet Volume 9.1 Neutrophils % 74.9 Lymphocytes % 14.1 L Monocytes % 10.0 Eosinophils % 0.1 Basophils % 0.4 Nucleated Red Blood Cells % 0.0 Neutrophils # 6.0 Lymphocytes # 1.1 Monocytes # 0.8 Eosinophils # 0.0 Basophils # 0.0 Nucleated Red Blood Cells # 0.0 Carcinoembryonic Antigen 9.3 H CA 125 Antigen 5.6 Sodium Level 146 H Potassium Level 3.9 Chloride Level 107 Carbon Dioxide Level 27 Anion Gap 16 Blood Urea Nitrogen 4 L Creatinine 0.38 L Glucose Level 119 Calcium Level 9.0 Phosphorus Level 3.5 Magnesium Level 1.6 L Iron Level 37 Total Iron Binding Capacity 162 L Percent Iron Saturation 23 Ferritin 141.0 Medications Medications Current Medications Dextrose/Sodium Chloride (D5-1/2ns) 1,000 ml @ 100 mls/hr Q10H IV Last administered on 04/25/17 15:42; Admin Dose 100 MLS/HR; Start 04/23/17 at 22:30 Ondansetron HCl (Zofran Inj) 4 mg Q6H PRN IV NAUSEA AND/OR VOMITING; Start 04/23 at 22:30 Morphine Sulfate 3 mg 3 mg Q4H PRN IV PAIN Last administered on 04/25/17 10:52 ; Admin Dose 3 MG; Start 04/23/17 at 22:30 Piperacillin Sod/ Tazobactam Sod 100 ml @ 200 mls/hr Q6 IVPB Last administered on 04/25/17 17:25; Admin Dose 200 MLS/HR; Start 04/24/17 at 00:00 Levetiracetam/ Sodium Chloride (Keppra Iv/NS) 105 ml @ 430 mls/hr Q12 IVPB Last administered on 04/25/17 10:51; Admin Dose 430 MLS/HR; Start 04/24/17 at 12: 00 Lorazepam (Ativan) 2 mg Q10MIN PRN IV seizure; Start 04/24/17 at 11:00 Methylprednisolone Sodium Succinate (Solu-Medrol) 20 mg DAILY IV Last administered on 04/25/17 09:23; Admin Dose 20 MG; Start 04/24/17 at 11:30 Folic Acid (Folic Acid) 1 mg DAILY PO ; Start 04/24/17 at 14:30 Multivitamins Therapeutic (Theragran) 1 tab DAILY PO ; Start 04/24/17 at 14:30 Primidone (Mysoline) 250 mg TID PO ; Start 04/24/17 at 15:00 Sulfasalazine (Azulfidine) 500 mg QID PO Last administered on 04/25/17 17:28; Admin Dose 500 MG; Start 04/24/17 at 17:00 Atorvastatin Calcium (Lipitor) 20 mg DAILY@21 PO ; Start 04/24/17 at 21:00 Non-Formulary Medication 1 DOSE = 20 mcg/ 0.08ml DAILY SC Last administered on 04/25/17 09:23; Admin Dose 1 EA; Start 04/25/17 at 09:00 Magnesium Sulfate (Magnesium Sulfate 2 Gm/50 ml) 50 ml @ 25 mls/hr ONCE ONCE IVPB Last administered on 04/25/17 18:31; Admin Dose 25 MLS/HR; Start 04/25/17 at 18:00; Stop 04/25/17 at 19:59 THELMA FULTON NP Apr 25, 2017 19:38
[2017-04-25 20:08] VITALS: BP 125/62; RESP 20
[2017-04-25] MEDS: ATORVASTATIN 20 MG TAB PO SCH (21:58)
[2017-04-26] MEDS: DEXTROSE 5%-0.45% NACL 1,000 ML IV SCH ×4 (00:30→18:34)
[2017-04-26 02:00] VITALS: BP 112/55; RESP 19
[2017-04-26 05:37] LABS: BASOPHILS % 0.3 % (0.0-2.0); EOSINOPHILS # 0.1 10^3/ul (0.0-0.5); EOSINOPHILS % 0.9 % (0.0-7.0); HEMATOCRIT 29.1 % (37.0-47.0); HEMOGLOBIN 9.3 g/dl (12.0-16.0); LYMPHOCYTES # 1.2 10^3/ul (0.8-2.9); LYMPHOCYTES % 16.9 % (15.0-51.0); MEAN CORPUSCULAR HEMOGLOBIN 29.7 pg (29.0-33.0); MEAN PLATELET VOLUME 9.2 fl (7.4-10.4); MONOCYTE # 0.8 10^3/ul (0.3-0.9); NEUTROPHIL # 4.9 10^3/ul (1.6-7.5); NEUTROPHILS % 70.5 % (39.0-77.0); PLATELET COUNT 461 10^3/UL (140-415); RED BLOOD COUNT 3.13 10^6/ul (4.20-5.40); RED CELL DISTRIBUTION WIDTH 14.5 % (11.5-14.5); WHITE BLOOD COUNT 6.9 10^3/ul (4.8-10.8)
[2017-04-26] MEDS: PIPER-TAZO 3.375 GM IV (PMX) 100 ML IVPB SCH ×3 (05:45→18:33)
[2017-04-26 06:02] LABS: CALCIUM 8.4 mg/dl (8.4-10.2); CREATININE 0.38 mg/dl (0.44-1.00); PHOSPHORUS 2.6 mg/dl (2.5-4.9)
[2017-04-26 07:59] VITALS: BP 116/58; RESP 16
[2017-04-26] MEDS: SULFASALAZINE 500 MG TAB PO SCH ×4 (10:01→21:44)
[2017-04-26] MEDS: FOLIC ACID 1 MG TAB PO SCH (10:01)
[2017-04-26] MEDS: MULTIVITAMINS THERAPEUTIC TAB PO SCH (10:01)
[2017-04-26] MEDS: METHYLPREDNISOLONE 40 MG INJ IV SCH (10:01)
[2017-04-26] MEDS: LEVETIRACETAM IV 500 MG in SOD CHLORIDE 0.9% 100 ML IVPB SCH ×2 (10:01→21:44)
[2017-04-26] MEDS: PRIMIDONE 250 MG TAB PO SCH ×3 (10:01→21:44)
--- NOTE | 2017-04-26 10:02 | PN ---
Date/Time of Note Date/Time of Note DATE: 04/26/17 TIME: 09:56 Assessment/Plan Lines/Catheters IV C[facility]ter Type (from [facility]): Peripheral IV Assessment/Plan Chief Complaint/Hosp Course 1. Central pelvic abscess: significant history of pelvic cancer; concern for malignancy, no symptoms of infection -ir drainage of pelvic abscess -consult by gynecology hx of pelvic ca s/p oopherectomy hysterectomy: contacted by Dr. De Los Santos, okayed IR drain -onc consult; Dr. Alvares patient's oncologist 2. UTI: multiorganism pathogens -abx per sensitivity 3.Normocytic anemia: no acute bleed noted -monitor -transfuse as needed 4. Hypomagnesemia: normalized 5. History of pelvic ca, brain tumor 6. Hypokalemia: -replete and monitor Patient seen and examined in collaboration with Dr. Jonatan De Los Santos. Thank you. Problems: Subjective 24 Hr Interval Summary Pending CT guided drainage. Feels tired. Min temp. No fevers, chills. Min abdominal pain with liquids. Ambulatory around hallway. No centeno, dizziness, cp, palpitations, n/v/d/dysuria. Exam/Review of Systems Vital Signs Vitals Vital Signs Date Time Temp Pulse Resp B/P Pulse Ox O2 Delivery O2 Flow Rate FiO2 04/26/17 07:59 99.8 92 16 116/58 96 04/23/17 21:07 Room Air Intake and Output 04/25/17 04/25/17 04/26/17 14:59 22:59 06:59 Intake Total 205 ml 1415 ml 1300 ml Output Total 1300 ml Balance 205 ml 115 ml 1300 ml Exam Free Text/Dictation Constitutional: alert, oriented Psych: anxiety, no complaints Head: atraumatic, normocephalic Eyes: nl lids, nl sclera ENMT: mucosa pink and moist, nl nasal mucosa & septum Neck: non-tender, supple Respiratory: clear to auscultation, normal air movement Cardiovascular: regular rate and rhythm, No edema Gastrointestinal: mass (palpable mass in suprapubic region), soft, tender Musculoskeletal: nl extremities to inspection, nl gait and stance Extremities: normal pulses, No edema 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: nl mental status, nl speech, nl strength Lymph: No nl lymph nodes Results Result Diagram: 04/26/1743304/26/17433 JENIFER CABAN NP Apr 26, 2017 10:02
[2017-04-26] MEDS: TERIPARATIDE 600 MCG/2.4 ML SC SCH (10:03)
[2017-04-26] MEDS ORDERED: POTASSIUM CHLORIDE 20 MEQ POWDER FOR ORAL SOLN PO ONE (10:30)
--- NOTE | 2017-04-26 12:44 | PN ---
Date/Time of Note Date/Time of Note DATE: 04/26/17 TIME: 12:42 Assessment/Plan VTE Prophylaxis VTE Prophylaxis Intervention: ambulation Lines/Catheters IV Catheter Type (from Nrs): Peripheral IV Assessment/Plan Chief Complaint/Hosp Course Patient is a 56-year-old female with past medical history significant for pelvic mass status post hysterectomy and bilateral salpingo-oophorectomy with omentectomy and severe rheumatoid arthritis who presents to [facility] for abdominal pain and her physician sent her after he found a large diverticular abscess. Assessment and problem list Large diverticular abscess Sepsis, stable UTI Anemia History of seizure disorder History of brain tumor History of pelvic mass Severe rheumatoid arthritis Sjogren's syndrome Plan -General surgery has seen the patient, questionable mass vs abscess. Waited until Dr. De Los Santos, gen surg, could get in contact with Dr. Díaz, binder chainstitch-onc, to okay IR drainage. okayed by Dr. Díaz and IR drainage planned for today. -Patient to resume home meds as able, patient will bring home [place] -Continue symptomatic care, pain management as necessary -Oncology has also been consulted for possible mass and malignancy given patient 's history of multiple masses in the pelvis and in the brain. Does not feel it is a malignancy at this point. treat as if infection, abx on. -Follow-up with repeat labs and monitor closely Problems: Subjective 24 Hr Interval Summary Free Text/Dictation no new complaints Exam/Review of Systems Vital Signs Vitals Vital Signs Date Time Temp Pulse Resp B/P Pulse Ox O2 Delivery O2 Flow Rate FiO2 04/26/17 07:59 99.8 92 16 116/58 96 04/23/17 21:07 Room Air Intake and Output 04/25/17 04/25/17 04/26/17 15:00 23:00 07:00 Intake Total 205 ml 1415 ml 1300 ml Output Total 1300 ml Balance 205 ml 115 ml 1300 ml Exam Physical exam General: Patient is laying in bed and answers questions appropriately Mentation: Patient is alert and oriented 4, Head: Normocephalic atraumatic Eyes: EOMI, pupils reactive to light Neck: Supple, nontender, midline Respiratory: Clear to auscultation bilaterally Cardiovascular: regular rate, no obvious murmurs Gastrointestinal: mildly tender to palpation, bowel sounds heard. 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: Moves all extremities spontaneously Skin: No new skin lesions Results Result Diagram: 04/26/17 0434 04/26/17 0434 Results 24 hrs Laboratory Tests Test 04/26/17 04:34 White Blood Count 6.9 Red Blood Count 3.13 L Hemoglobin 9.3 L Hematocrit 29.1 L Mean Corpuscular Volume 93.0 Mean Corpuscular Hemoglobin 29.7 Mean Corpuscular Hemoglobin Concent 32.0 Red Cell Distribution Width 14.5 Platelet Count 461 H Mean Platelet Volume 9.2 Neutrophils % 70.5 Lymphocytes % 16.9 Monocytes % 11.0 Eosinophils % 0.9 Basophils % 0.3 Nucleated Red Blood Cells % 0.0 Neutrophils # 4.9 Lymphocytes # 1.2 Monocytes # 0.8 Eosinophils # 0.1 Basophils # 0.0 Nucleated Red Blood Cells # 0.0 Sodium Level 144 Potassium Level 3.0 L Chloride Level 107 Carbon Dioxide Level 26 Anion Gap 14 Blood Urea Nitrogen 4 L Creatinine 0.38 L Glucose Level 125 Calcium Level 8.4 Phosphorus Level 2.6 Magnesium Level 2.0 Medications Medications Current Medications Dextrose/Sodium Chloride (D5-1/2ns) 1,000 ml @ 100 mls/hr Q10H IV Last administered on 04/26/17 05:49; Admin Dose 100 MLS/HR; Start 04/23/17 at 22:30 Ondansetron HCl (Zofran Inj) 4 mg Q6H PRN IV NAUSEA AND/OR VOMITING; Start 04/23 at 22:30 Morphine Sulfate 3 mg 3 mg Q4H PRN IV PAIN Last administered on 04/25/17 10:52 ; Admin Dose 3 MG; Start 04/23/17 at 22:30 Piperacillin Sod/ Tazobactam Sod 100 ml @ 200 mls/hr Q6 IVPB Last administered on 04/26/17 12:32; Admin Dose 200 MLS/HR; Start 04/24/17 at 00:00 Levetiracetam/ Sodium Chloride (Keppra Iv/NS) 105 ml @ 430 mls/hr Q12 IVPB Last administered on 04/26/17 10:01; Admin Dose 430 MLS/HR; Start 04/24/17 at 12: 00 Lorazepam (Ativan) 2 mg Q10MIN PRN IV seizure; Start 04/24/17 at 11:00 Methylprednisolone Sodium Succinate (Solu-Medrol) 20 mg DAILY IV Last administered on 04/26/17 10:01; Admin Dose 20 MG; Start 04/24/17 at 11:30 Folic Acid (Folic Acid) 1 mg DAILY PO Last administered on 04/26/17 10:01; Admin Dose 1 MG; Start 04/24/17 at 14:30 Multivitamins Therapeutic (Theragran) 1 tab DAILY PO Last administered on 10:01; Admin Dose 1 TAB; Start 04/24/17 at 14:30 Primidone (Mysoline) 250 mg TID PO Last administered on 04/26/17 12:32; Admin Dose 250 MG; Start 04/24/17 at 15:00 Sulfasalazine (Azulfidine) 500 mg QID PO Last administered on 04/26/17 12:31; Admin Dose 500 MG; Start 04/24/17 at 17:00 Atorvastatin Calcium (Lipitor) 20 mg DAILY@21 PO Last administered on 04/25/17 21:58; Admin Dose 20 MG; Start 04/24/17 at 21:00 Non-Formulary Medication 1 DOSE = 20 mcg/ 0.08ml DAILY SC Last administered on 04/26/17 10:03; Admin Dose 1 EA; Start 04/25/17 at 09:00 SAMANTHA KAPLAN Apr 26, 2017 12:44
[2017-04-26 14:00] VITALS: BP 128/63; RESP 18
--- NOTE | 2017-04-26 15:37 | CONS ---
Date/Time of Note Date/Time of Note DATE: 04/26/17 TIME: 15:36 Assessment/Plan Assessment/Plan Chief Complaint/Hosp Course ID PROGRESS NOTE CURRENT ABX: Zosyn #3 s/p Ertapenem x1 04/23 1600 24 HOUR INTERVAL SUMMARY * A/A/O -> OPERATIONS EXAMINER present for assistance in translation to [place] * Plan is for CT guided drain placement Thursday diverticular abscess * She is stable on ABX doing well -- no fevers, WBC normalized, still has ABD pain Exam Constitutional: alert, oriented, well developed Head: atraumatic, normocephalic Eyes: EOMI, PERRL Respiratory: clear to auscultation, normal air movement Cardiovascular: nl pulses, regular rate and rhythm Gastrointestinal: Soft, (+)tender LLQ, (+)BS Extremities: normal pulses 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: nl mental status, nl speech, nl strength ID ASSESSMENT 56 yo obese [place] speaking F admit with: 1. SIRS w/increased Neuts% = left shift on WBC, no fevers, VSS 2. Acute large diverticular abscess in the central pelvis, measuring approximately 11 cm in maximal dimension. * DDx infected pelvic mass pelvic cancer=> Hx of of carcinoma ->s/p hysterectomy , oophorectomy, and omentectomy. * Hx of mucinous adenocarcinoma pelvic tumor=> Per GI she has had a 10-15# weight loss in 3 weeks? 3. UTI per UA 3+ Leuk-Esterase, >182 pyuria, 9RBC -> Micro pending 4. Nonobstructive left renal calculus is noted, without ureterolithiasis or obstructive uropathy=> PER CT 5. Bowel containing lower abdominal ventral hernia is noted, without obstruction or incarceration=> PER CT 6. PSHx: s/p Cholecystectomy (2013) /Hysterectomy(2011) / Head surgery "mass"( 1996) 7. Osteoporosis 8. Osteoarthritis 9. Rheumatoid arthritis CURRENT ABX: Zosyn #3 s/p Ertapenem x1 04/23 1600 ID RECOMMENDATIONS 1. Continue Zosyn 2. Pending CT guided drainage of diverticular abscess tomorrow, Thursday . Problems: Consultation Date/Type/Reason Admit Date/Time Apr 23, 2017 at 20:40 Initial Consult Date 04/24/17 Type of Consultation: ID Referring Provider: SAMANTHA KAPLAN Exam/Review of Systems Vital Signs Vitals Vital Signs Date Time Temp Pulse Resp B/P Pulse Ox O2 Delivery O2 Flow Rate FiO2 04/26/17 07:59 99.8 92 16 116/58 96 04/23/17 21:07 Room Air Intake and Output 04/25/17 04/25/17 04/26/17 15:00 23:00 07:00 Intake Total 205 ml 1415 ml 1300 ml Output Total 1300 ml Balance 205 ml 115 ml 1300 ml Results Result Diagram: 04/26/17 0434 04/26/17 0434 Results 24 hrs Laboratory Tests Test 04/26/17 04:34 White Blood Count 6.9 Red Blood Count 3.13 L Hemoglobin 9.3 L Hematocrit 29.1 L Mean Corpuscular Volume 93.0 Mean Corpuscular Hemoglobin 29.7 Mean Corpuscular Hemoglobin Concent 32.0 Red Cell Distribution Width 14.5 Platelet Count 461 H Mean Platelet Volume 9.2 Neutrophils % 70.5 Lymphocytes % 16.9 Monocytes % 11.0 Eosinophils % 0.9 Basophils % 0.3 Nucleated Red Blood Cells % 0.0 Neutrophils # 4.9 Lymphocytes # 1.2 Monocytes # 0.8 Eosinophils # 0.1 Basophils # 0.0 Nucleated Red Blood Cells # 0.0 Sodium Level 144 Potassium Level 3.0 L Chloride Level 107 Carbon Dioxide Level 26 Anion Gap 14 Blood Urea Nitrogen 4 L Creatinine 0.38 L Glucose Level 125 Calcium Level 8.4 Phosphorus Level 2.6 Magnesium Level 2.0 Medications Medications Current Medications Dextrose/Sodium Chloride (D5-1/2ns) 1,000 ml @ 100 mls/hr Q10H IV Last administered on 04/26/17 05:49; Admin Dose 100 MLS/HR; Start 04/23/17 at 22:30 Ondansetron HCl (Zofran Inj) 4 mg Q6H PRN IV NAUSEA AND/OR VOMITING; Start 04/23 at 22:30 Morphine Sulfate 3 mg 3 mg Q4H PRN IV PAIN Last administered on 04/25/17 10:52 ; Admin Dose 3 MG; Start 04/23/17 at 22:30 Piperacillin Sod/ Tazobactam Sod 100 ml @ 200 mls/hr Q6 IVPB Last administered on 04/26/17 12:32; Admin Dose 200 MLS/HR; Start 04/24/17 at 00:00 Levetiracetam/ Sodium Chloride (Keppra Iv/NS) 105 ml @ 430 mls/hr Q12 IVPB Last administered on 04/26/17 10:01; Admin Dose 430 MLS/HR; Start 04/24/17 at 12: 00 Lorazepam (Ativan) 2 mg Q10MIN PRN IV seizure; Start 04/24/17 at 11:00 Methylprednisolone Sodium Succinate (Solu-Medrol) 20 mg DAILY IV Last administered on 04/26/17 10:01; Admin Dose 20 MG; Start 04/24/17 at 11:30 Folic Acid (Folic Acid) 1 mg DAILY PO Last administered on 04/26/17 10:01; Admin Dose 1 MG; Start 04/24/17 at 14:30 Multivitamins Therapeutic (Theragran) 1 tab DAILY PO Last administered on 10:01; Admin Dose 1 TAB; Start 04/24/17 at 14:30 Primidone (Mysoline) 250 mg TID PO Last administered on 04/26/17 12:32; Admin Dose 250 MG; Start 04/24/17 at 15:00 Sulfasalazine (Azulfidine) 500 mg QID PO Last administered on 04/26/17 12:31; Admin Dose 500 MG; Start 04/24/17 at 17:00 Atorvastatin Calcium (Lipitor) 20 mg DAILY@21 PO Last administered on 04/25/17 21:58; Admin Dose 20 MG; Start 04/24/17 at 21:00 Non-Formulary Medication 1 DOSE = 20 mcg/ 0.08ml DAILY SC Last administered on 04/26/17 10:03; Admin Dose 1 EA; Start 04/25/17 at 09:00 THELMA FULTON NP Apr 26, 2017 15:37
[2017-04-26 16:14] LABS: INR 1.07; PROTIME 13.9 Sec (12.2-14.2); PT RATIO 1.1
[2017-04-26 16:15] LABS: PARTIAL THROMBOPLASTIN TIME 37.8 Sec (25.0-35.0)
[2017-04-26 19:22] VITALS: BP 114/56; RESP 18
[2017-04-26] MEDS: ATORVASTATIN 20 MG TAB PO SCH (21:44)
[2017-04-27] MEDS: PIPER-TAZO 3.375 GM IV (PMX) 100 ML IVPB SCH ×4 (00:08→18:51)
[2017-04-27 01:49] VITALS: BP 121/63; RESP 20
[2017-04-27] MEDS: DEXTROSE 5%-0.45% NACL 1,000 ML IV SCH ×3 (05:41→16:30)
[2017-04-27 05:55] LABS: BASOPHILS % 0.4 % (0.0-2.0); EOSINOPHILS # 0.1 10^3/ul (0.0-0.5); HEMATOCRIT 30.4 % (37.0-47.0); HEMOGLOBIN 9.7 g/dl (12.0-16.0); LYMPHOCYTES # 1.2 10^3/ul (0.8-2.9); MEAN CORPUSCULAR HEMOGLOBIN 29.8 pg (29.0-33.0); MEAN CORPUSCULAR HGB CONC 31.9 g/dl (32.0-37.0); MEAN CORPUSCULAR VOLUME 93.5 fl (82.0-101.0); MEAN PLATELET VOLUME 9.1 fl (7.4-10.4); MONOCYTE # 0.6 10^3/ul (0.3-0.9); MONOCYTES % 11.4 % (0.0-11.0); NEUTROPHIL # 3.6 10^3/ul (1.6-7.5); NEUTROPHILS % 63.8 % (39.0-77.0); PLATELET COUNT 434 10^3/UL (140-415); RED BLOOD COUNT 3.25 10^6/ul (4.20-5.40); RED CELL DISTRIBUTION WIDTH 14.5 % (11.5-14.5); WHITE BLOOD COUNT 5.6 10^3/ul (4.8-10.8)
[2017-04-27 06:26] LABS: CALCIUM 8.7 mg/dl (8.4-10.2); CREATININE 0.42 mg/dl (0.44-1.00); MAGNESIUM 1.8 mg/dl (1.7-2.5); POTASSIUM 3.8 mmol/L (3.5-5.1)
[2017-04-27 08:11] VITALS: BP 103/58; RESP 18
[2017-04-27] MEDS: METHYLPREDNISOLONE 40 MG INJ IV SCH (10:18)
[2017-04-27] MEDS: LEVETIRACETAM IV 500 MG in SOD CHLORIDE 0.9% 100 ML IVPB SCH ×2 (10:19→23:38)
[2017-04-27] MEDS: PRIMIDONE 250 MG TAB PO SCH ×3 (10:19→20:27)
[2017-04-27] MEDS: MULTIVITAMINS THERAPEUTIC TAB PO SCH (10:19)
[2017-04-27] MEDS: FOLIC ACID 1 MG TAB PO SCH (10:19)
[2017-04-27] MEDS: TERIPARATIDE 600 MCG/2.4 ML SC SCH (10:21)
[2017-04-27] MEDS: SULFASALAZINE 500 MG TAB PO SCH ×4 (10:21→20:27)
--- NOTE | 2017-04-27 10:55 | PN ---
Date/Time of Note Date/Time of Note DATE: 04/27/17 TIME: 10:49 Assessment/Plan Lines/Catheters IV C[facility]ter Type (from [facility]): Peripheral IV Assessment/Plan Chief Complaint/Hosp Course 1. Central pelvic abscess: significant history of pelvic cancer; concern for malignancy, no symptoms of infection -ir drainage of pelvic abscess today -consult by gynecology hx of pelvic ca s/p oopherectomy hysterectomy: contacted by Dr. De Los Santos, okayed IR drain 2. UTI: multiorganism pathogens -abx per sensitivity 3.Normocytic anemia: no acute bleed noted -monitor -transfuse as needed 4. Hypomagnesemia: normalized 5. History of pelvic ca, brain tumor 6. Hypokalemia: normalized 7. Hyponatreamia: -judicious fluids 8. Loose stools: cdiff negative -if persistent may need further stool studies Patient seen and examined in collaboration with Dr. Jonatan De Los Santos. Thank you. Problems: Subjective 24 Hr Interval Summary Feels ok. Loose stools. Pending IR drainage of pelvic mass. Min abdominal pain. No fevers, chills, centeno, dizziness, cp, sob, palpitations, n/v/dysuria. Exam/Review of Systems Vital Signs Vitals Vital Signs Date Time Temp Pulse Resp B/P Pulse Ox O2 Delivery O2 Flow Rate FiO2 04/27/17 08:11 98.5 79 18 103/58 97 04/23/17 21:07 Room Air Intake and Output 04/26/17 04/26/17 04/27/17 15:00 23:00 07:00 Intake Total 205 ml 1205 ml 1200 ml Output Total 300 ml Balance 205 ml 1205 ml 900 ml Exam Free Text/Dictation Constitutional: alert, oriented, pleasant Psych: anxiety, no complaints Head: atraumatic, normocephalic Eyes: nl lids, nl sclera ENMT: mucosa pink and moist, nl nasal mucosa & septum Neck: non-tender, supple Respiratory: clear to auscultation, normal air movement Cardiovascular: regular rate and rhythm, No edema Gastrointestinal: mass (palpable mass in suprapubic region), soft, min tender Musculoskeletal: nl extremities to inspection, nl gait and stance Extremities: normal pulses, No edema 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: nl mental status, nl speech, nl strength Lymph: No nl lymph nodes Results Result Diagram: 04/27/17 0530 04/27/17 0530 JENIFER CABAN NP Apr 27, 2017 10:55
[2017-04-27 13:08] VITALS: BP 111/59; RESP 20
--- NOTE | 2017-04-27 14:28 | PN ---
Date/Time of Note Date/Time of Note DATE: 04/27/17 TIME: 14:26 Assessment/Plan VTE Prophylaxis VTE Prophylaxis Intervention: SCD's Lines/Catheters IV C[facility]ter Type (from [facility]): Peripheral IV Assessment/Plan Chief Complaint/Hosp Course 1. Large diverticular abscess in the central pelvis. Possibly malignant. The patient being followed by general surgery, oncology and canal. The patient is scheduled for a CT-guided biopsy of the lesion. 2. Seizure disorder. Continue anticonvulsants. 3. Rheumatoid arthritis. Continue current care. 4. Sjogren's syndrome. Continue current care. 5. History of brain tumor. 6. Normocytic, normochromic anemia. Most probably anemia chronic disease. Monitor H&H closely. 7. Systemic inflammatory response syndrome. Positive urinalysis. On antibiotics as per infectious diseases. Urine culture pending. 8. Fluids, electrolytes, and nutrition. Currently n.p.o. for procedure. 9. DVT prophylaxis. Bilateral sequential compression devices. 10. Plan. Continue current management. Await biopsy of the lesion. Case discussed with Dr. Villareal. Problems: Subjective 24 Hr Interval Summary Free Text/Dictation Denies any abdominal pain. Exam/Review of Systems Vital Signs Vitals Vital Signs Date Time Temp Pulse Resp B/P Pulse Ox O2 Delivery O2 Flow Rate FiO2 04/27/17 13:08 98.0 83 20 111/59 99 04/23/17 21:07 Room Air Intake and Output 04/26/17 04/26/17 04/27/17 15:00 23:00 07:00 Intake Total 205 ml 1205 ml 1200 ml Output Total 300 ml Balance 205 ml 1205 ml 900 ml Exam General: Adequately build 56 year-old male lying in bed in no apparent distress. HEENT: Normocephalic, atraumatic. Eyes: Anicteric sclerae, conjunctivae clear. ENT: Nasal septum midline, oral mucosa moist. Neck supple, no JVD noticed. Respiratory: Bilaterally clear breath sounds. No use of accessory muscles of respiration. No adventitious breath sounds. Cardiovascular: S1, S2 heard. No murmurs or gallops. Abdomen: Soft, nontender, and nondistended. Bowel sounds positive in all 4 quadrants. Genitourinary: Deferred. Extremities: No cyanosis, no clubbing, no edema. Peripheral pulses palpable. Chronic deformities of bilateral metacarpal joints. Neurologic: Cranial nerves II through XII grossly intact. The patient is awake, alert, and oriented. Skin: Normal skin turgor. No skin rashes. Results Result Diagram: 04/27/17 0530 04/27/17 0530 Results 24 hrs Laboratory Tests Test 04/26/17 15:40 04/27/17 05:30 Prothrombin Time 13.9 Prothrombin Time Ratio 1.1 INR International Normalized Ratio 1.07 Activated Partial Thromboplast Time 37.8 H White Blood Count 5.6 Red Blood Count 3.25 L Hemoglobin 9.7 L Hematocrit 30.4 L Mean Corpuscular Volume 93.5 Mean Corpuscular Hemoglobin 29.8 Mean Corpuscular Hemoglobin Concent 31.9 L Red Cell Distribution Width 14.5 Platelet Count 434 H Mean Platelet Volume 9.1 Neutrophils % 63.8 Lymphocytes % 22.0 Monocytes % 11.4 H Eosinophils % 2.0 Basophils % 0.4 Nucleated Red Blood Cells % 0.0 Neutrophils # 3.6 Lymphocytes # 1.2 Monocytes # 0.6 Eosinophils # 0.1 Basophils # 0.0 Nucleated Red Blood Cells # 0.0 Sodium Level 146 H Potassium Level 3.8 Chloride Level 110 Carbon Dioxide Level 24 Anion Gap 16 Blood Urea Nitrogen 3 L Creatinine 0.42 L Glucose Level 111 Calcium Level 8.7 Phosphorus Level 3.0 Magnesium Level 1.8 Medications Medications Current Medications Dextrose/Sodium Chloride (D5-1/2ns) 1,000 ml @ 100 mls/hr Q10H IV Last administered on 04/27/17 05:41; Admin Dose 100 MLS/HR; Start 04/23/17 at 22:30 Ondansetron HCl (Zofran Inj) 4 mg Q6H PRN IV NAUSEA AND/OR VOMITING; Start 04/23 at 22:30 Morphine Sulfate 3 mg 3 mg Q4H PRN IV PAIN Last administered on 04/25/17 10:52 ; Admin Dose 3 MG; Start 04/23/17 at 22:30 Piperacillin Sod/ Tazobactam Sod 100 ml @ 200 mls/hr Q6 IVPB Last administered on 04/27/17 13:29; Admin Dose 200 MLS/HR; Start 04/24/17 at 00:00 Levetiracetam/ Sodium Chloride (Keppra Iv/NS) 105 ml @ 430 mls/hr Q12 IVPB Last administered on 04/27/17 10:19; Admin Dose 430 MLS/HR; Start 04/24/17 at 12: 00 Lorazepam (Ativan) 2 mg Q10MIN PRN IV seizure; Start 04/24/17 at 11:00 Methylprednisolone Sodium Succinate (Solu-Medrol) 20 mg DAILY IV Last administered on 04/27/17 10:18; Admin Dose 20 MG; Start 04/24/17 at 11:30 Folic Acid (Folic Acid) 1 mg DAILY PO Last administered on 04/27/17 10:19; Admin Dose 1 MG; Start 04/24/17 at 14:30 Multivitamins Therapeutic (Theragran) 1 tab DAILY PO Last administered on 10:19; Admin Dose 1 TAB; Start 04/24/17 at 14:30 Primidone (Mysoline) 250 mg TID PO Last administered on 04/27/17 13:29; Admin Dose 250 MG; Start 04/24/17 at 15:00 Sulfasalazine (Azulfidine) 500 mg QID PO Last administered on 04/27/17 13:29; Admin Dose 500 MG; Start 04/24/17 at 17:00 Atorvastatin Calcium (Lipitor) 20 mg DAILY@21 PO Last administered on 04/26/17 21:44; Admin Dose 20 MG; Start 04/24/17 at 21:00 Non-Formulary Medication 1 DOSE = 20 mcg/ 0.08ml DAILY SC Last administered on 04/27/17 10:21; Admin Dose 1 EA; Start 04/25/17 at 09:00 LATASHA RICHARDSON NP Apr 27, 2017 14:27
--- NOTE | 2017-04-27 18:16 | EN ---
Date/Time of Note Date/Time of Note DATE: 04/27/17 TIME: 18:06 Event Note Medicine Medicine Event Note Oncology consult dictated--JOB #[id number]. Pt is a 56 y/o female with findings of an 11 cm pelvic mass which has been suspected to be a diverticular abcess. Pt had similar presentation in 2011. 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 The primary was never determined but it was felt to be of GI origin. Pt underwent a supracervical hysterectomy with BSO, omentectomy and appendectomy. No therapy was administered post operatively and pt was well until ~ 2mos ago when she began to experience dysuria and hematuria. Pt states that hse has had a low grade fever but no shaking chills. Has not had c/o abd pain. Has experienced wt loss. Other significant past hx includes rheumatoid arthritis. Has chronically been on prednisone and weekly methotrexate. Pt also had a benign brain lesion removed in 1988. Has presented with GM seizures at that time. Has requested a CT guided drainage of the pelvic mass with a bx if possible. This was already requested by Dr Yuen but not done!. Pt and family upset. Copies To: CC: DIEGO YUEN MD,TATO Mckeon MD Apr 27, 2017 18:16
[2017-04-27 20:19] VITALS: BP 138/89; RESP 18
[2017-04-27] MEDS: ATORVASTATIN 20 MG TAB PO SCH (20:27)
--- NOTE | 2017-04-27 20:38 | CONS ---
Date/Time of Note Date/Time of Note DATE: 04/27/17 TIME: 20:31 Assessment/Plan Assessment/Plan Chief Complaint/Hosp Course ID PROGRESS NOTE CURRENT ABX: Zosyn #4 s/p Ertapenem x1 04/23 1600 24 HOUR INTERVAL SUMMARY * A/A/O -> AWARD CLERK present for assistance in translation to Citizen Of [place] * Plan is for CT guided drain placement Thursday diverticular abscess=>apparently IR was not able to accommodate the patient today, the son and patient express dissatisfaction; however I explained to them during their stay that the patient has stabilized and the priority is for ABX IV therapy in addition to need for variety of consultants to give opinions on where the pelvic mass is actually an diverticular abscess vs recurrence of pelvic cancer. I also explained to the son and the patient yesterday that although the plan was for IR drainage; the IR team will be fitting her in; and high risk patients may take priority. They do not seem to understand the concept of being bumped for cases of emergency; again I attempted to assure them that she is stable, no evidence of sepsis and having the antibiotics onboard is the priority treatment. * She is stable on ABX doing well -- no fevers, WBC normalized, still has ABD pain Exam Constitutional: alert, oriented, well developed Head: atraumatic, normocephalic Eyes: EOMI, PERRL Respiratory: clear to auscultation, normal air movement Cardiovascular: nl pulses, regular rate and rhythm Gastrointestinal: Soft, (+)tender LLQ, (+)BS Extremities: normal pulses 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: nl mental status, nl speech, nl strength ID ASSESSMENT 56 yo obese Citizen Of [place] speaking F admit with: 1. SIRS w/increased Neuts% = left shift on WBC, no fevers, VSS 2. Acute large diverticular abscess in the central pelvis, measuring approximately 11 cm in maximal dimension. * DDx infected pelvic mass pelvic cancer=> Hx of of carcinoma ->s/p hysterectomy , oophorectomy, and omentectomy. * Hx of mucinous adenocarcinoma pelvic tumor=> Per GI she has had a 10-15# weight loss in 3 weeks? 3. UTI per UA 3+ Leuk-Esterase, >182 pyuria, 9RBC -> Micro pending 4. Nonobstructive left renal calculus is noted, without ureterolithiasis or obstructive uropathy=> PER CT 5. Bowel containing lower abdominal ventral hernia is noted, without obstruction or incarceration=> PER CT 6. PSHx: s/p Cholecystectomy (2013) /Hysterectomy(2011) / Head surgery "mass"( 1996) 7. Osteoporosis 8. Osteoarthritis 9. Rheumatoid arthritis CURRENT ABX: Zosyn #4 s/p Ertapenem x1 04/23 1600 ID RECOMMENDATIONS 1. Continue Zosyn 2. Pending CT guided drainage of diverticular abscess pending IR availability . . Problems: Consultation Date/Type/Reason Admit Date/Time Apr 23, 2017 at 20:40 Initial Consult Date 04/24/17 Type of Consultation: ID Referring Provider: SAMANTHA KAPLAN Exam/Review of Systems Vital Signs Vitals Vital Signs Date Time Temp Pulse Resp B/P Pulse Ox O2 Delivery O2 Flow Rate FiO2 04/27/17 20:19 98.4 79 18 138/89 99 04/23/17 21:07 Room Air Intake and Output 04/26/17 04/26/17 04/27/17 15:00 23:00 07:00 Intake Total 205 ml 1205 ml 1200 ml Output Total 300 ml Balance 205 ml 1205 ml 900 ml Results Result Diagram: 04/27/17 0530 04/27/17 0530 Results 24 hrs Laboratory Tests Test 04/27/17 05:30 White Blood Count 5.6 Red Blood Count 3.25 L Hemoglobin 9.7 L Hematocrit 30.4 L Mean Corpuscular Volume 93.5 Mean Corpuscular Hemoglobin 29.8 Mean Corpuscular Hemoglobin Concent 31.9 L Red Cell Distribution Width 14.5 Platelet Count 434 H Mean Platelet Volume 9.1 Neutrophils % 63.8 Lymphocytes % 22.0 Monocytes % 11.4 H Eosinophils % 2.0 Basophils % 0.4 Nucleated Red Blood Cells % 0.0 Neutrophils # 3.6 Lymphocytes # 1.2 Monocytes # 0.6 Eosinophils # 0.1 Basophils # 0.0 Nucleated Red Blood Cells # 0.0 Sodium Level 146 H Potassium Level 3.8 Chloride Level 110 Carbon Dioxide Level 24 Anion Gap 16 Blood Urea Nitrogen 3 L Creatinine 0.42 L Glucose Level 111 Calcium Level 8.7 Phosphorus Level 3.0 Magnesium Level 1.8 Medications Medications Current Medications Dextrose/Sodium Chloride (D5-1/2ns) 1,000 ml @ 100 mls/hr Q10H IV Last administered on 04/27/17t 05:41; Admin Dose 100 MLS/HR; Start 04/23/17 at 22:30 Ondansetron HCl (Zofran Inj) 4 mg Q6H PRN IV NAUSEA AND/OR VOMITING; Start 04/23 at 22:30 Morphine Sulfate 3 mg 3 mg Q4H PRN IV PAIN Last administered on 04/25/17 10:52 ; Admin Dose 3 MG; Start 04/23/17 at 22:30 Piperacillin Sod/ Tazobactam Sod 100 ml @ 200 mls/hr Q6 IVPB Last administered on 04/27/17 18:51; Admin Dose 200 MLS/HR; Start 04/24/17 at 00:00 Levetiracetam/ Sodium Chloride (Keppra Iv/NS) 105 ml @ 430 mls/hr Q12 IVPB Last administered on 04/27/17 10:19; Admin Dose 430 MLS/HR; Start 04/24/17 at 12: 00 Lorazepam (Ativan) 2 mg Q10MIN PRN IV seizure; Start 04/24/17 at 11:00 Methylprednisolone Sodium Succinate (Solu-Medrol) 20 mg DAILY IV Last administered on 04/27/17 10:18; Admin Dose 20 MG; Start 04/24/17 at 11:30 Folic Acid (Folic Acid) 1 mg DAILY PO Last administered on 04/27/17 10:19; Admin Dose 1 MG; Start 04/24/17 at 14:30 Multivitamins Therapeutic (Theragran) 1 tab DAILY PO Last administered on 10:19; Admin Dose 1 TAB; Start 04/24/17 at 14:30 Primidone (Mysoline) 250 mg TID PO Last administered on 04/27/17 20:27; Admin Dose 250 MG; Start 04/24/17 at 15:00 Sulfasalazine (Azulfidine) 500 mg QID PO Last administered on 04/27/17 20:27; Admin Dose 500 MG; Start 04/24/17 at 17:00 Atorvastatin Calcium (Lipitor) 20 mg DAILY@21 PO Last administered on 04/27/17 20:27; Admin Dose 20 MG; Start 04/24/17 at 21:00 Non-Formulary Medication 1 DOSE = 20 mcg/ 0.08ml DAILY SC Last administered on 8/7/17at 10:21; Admin Dose 1 EA; Start 04/25/17 at 09:00 THELMA FULTON NP Apr 27, 2017 20:38
--- NOTE | 2017-04-27 22:17 | CONS ---
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 HISTORY OF PRESENT ILLNESS: Dear Dr. De Los Santos, thank you very much for asking me to see this very pleasant patient in oncologic consultation. As you know, the patient is a 56-year-old female, who was admitted to [facility] with a complaint of 1 and a half months of dysuria. Initially, the patient also was experiencing hematuria. The patient has had multiple antibiotics. This has included at least ciprofloxacin. The patient as part of the workup has had MRIs and ultrasounds of the abdomen, which has shown a pelvic mass. On admission to the hospital, the patient has had a CT scan of the abdomen and pelvis, which shows an 11 cm central pelvic mass. This mass was 11 by 9 by 8 cm. There was possibly some gas noted. Urinary bladder was not well visualized. The patient has had a history of a previous presentation with a pelvic mass with abscess in 2011. The patient was seen at that time by Dr. Frank Díaz and in October, underwent a laparotomy with a supracervical hysterectomy and bilateral salpingo-oophorectomy. Patient also underwent omentectomy and appendectomy at that time. Pathology apparently showed a well-differentiated mucinous adenocarcinoma. This appeared to be low-grade. Immunohisto- chemical studies did not help to determine the primary. The patient has not received any therapy for this malignancy. She states she has been well until a month and a half prior to admission. The patient actually has been seen in our office in the past. The patient was last seen in our office by Dr. Thaddeus Alvares on 12/02/2016. At that time, the patient was feeling well and had no specific complaints or findings. The patient had been losing weight at that time, which was felt initially to be intentional. The patient states, however, she has lost approximately 10 pounds further in the past 2 weeks. The patient as noted has had dysuria and some hematuria which is now cleared. On admission at this time, the patient's urinalysis does show greater than 182 white blood cells per high power field with only 9 red blood cells per high power field. Unfortunately there does not appear to have been a urine culture obtained. Blood cultures are negative. Patient also has experienced some diarrhea while in the hospital. It may have been 1 or 2 episodes of blood, however, stool for occult blood is negative on at least 1 determination and the stool for Clostridium difficile toxin is negative. The patient as mentioned has been experiencing symptoms of some symptoms of urinary tract infection for the past month and a half. She denies shaking chills, but states her temperature has been as high as 101. The patient has complained of some back pain, but she is unclear whether this is related to compression fractures that she has sustained because of osteoporosis. The patient's laboratory obtained on this admission at this time includes a white count of 5600, hemoglobin 9.7, hematocrit 30.4, platelet count 343,000. Protime is 13.9 seconds, INR 1.07, and PTT is 37.8 seconds. A comprehensive metabolic panel on admission revealed a BUN of 12, creatinine 0.38, calcium was 10.5 with an albumin of 3.8. Since then the calcium is normalized. Total bilirubin on admission was 0, AST 32, ALT 34, alkaline phosphatase 141, total protein 8, albumin 3.8. CEA is 9.3. CA- 125 is 56. 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 The patient also has had some type of benign brain lesion resected in 1988. At that time the patient presented with seizures. As stated, this was benign. The patient's other history includes rheumatoid arthritis with Sjogren syndrome. The patient has chronically been on corticosteroids and does have osteoporosis as a result. Has also had grand mal seizures. PAST SURGICAL HISTORY: Includes the previous exploratory laparotomy with supracervical hysterectomy and bilateral salpingo- oophorectomy, omentectomy and appendectomy. Other surgeries have included the previously noted removal of brain lesion in 1988. MEDICATIONS: Medications on admission included ciprofloxacin 500 mg twice a day, Pyridium 100 mg 4 times a day, Imodium 2 mg after each loose bowel movement, ibuprofen 600 mg q.4 hours p.r.n., prednisone 1 mg daily, carbamazepine XR 200 mg q.12 hours. Medications during hospitalization include atorvastatin 20 mg daily, azulfidine 500 mg p.o. q.i.d., primidone 250 mg t.i.d., folic acid 1 mg per day, Lexapro, methylprednisolone 20 mg IV daily, lorazepam p.r.n., Zosyn, ondansetron 4 mg p.r.n., and morphine sulfate. Other medications for home, patient was also taking methotrexate 20 mg once a week. ALLERGIES: NO KNOWN ALLERGIES. SOCIAL HISTORY: Patient is . She does not smoke or use alcoholic beverages. She has not been exposed to industrial toxins or ionizing radiation, but has been exposed to methotrexate chronically. FAMILY HISTORY: Unremarkable. PHYSICAL EXAMINATION: At this time reveals a well-developed, but moderately obese female, who is in no acute distress. VITAL SIGNS: Temp 98, pulse 83 and regular, respirations 20, blood pressure 111/59, pulse oximetry is 99 percent on room air. SKIN: No ecchymosis, no petechiae or rashes. HEENT: Normocephalic. No evidence of trauma. The pupils equal, round, and react to light and accommodation. Sclerae nonicteric. Oral mucosa is moist without lesions. Tongue is well papillated. There is no gingival hyperplasia, no hypertrophy of Waldeyer's ring. , no mucosal telangiectasias. NECK: Supple. No jugular distention or thyroid enlargement. No carotid bruits. CHEST: Clear to auscultation and percussion. No rhonchi, wheezes, rales, or rubs. NODES: No palpable lymphadenopathy in any lymph node bearing area. BREASTS: No masses, skin retraction, or nipple inversion. HEART: Regular sinus rhythm. No S3, S4, or murmurs. No rubs. ABDOMEN: Obese and distended. It is soft. There is a ventral hernia in the lower abdomen, which is easily reduced. There is a generalized fullness in the left lower abdomen. Bowel sounds are active. There is no rebound tenderness. EXTREMITIES: No clubbing,edema, or cyanosis. There are the changes in the patients, hand, fingers, and knees consistent with deformities related to rheumatoid arthritis. DISCUSSION: As noted, this patient has a history of mucinous adenocarcinoma, which originally presented as a pelvic mass in 2001. This was felt to be a low grade malignancy. The patient did undergo surgery, which included a supracervical hysterectomy with bilateral salpingo-oophorectomy. The patient also had an omentectomy as well as appendectomy. Unfortunately at this time it is unclear if it was felt that all tumor had been removed. The patient has never received any postoperative therapy and has been well until approximately a month and a half ago. As noted, the patient was seen in our office approximately 4 months ago. There were no abnormalities noted at that time. The patient now presents with weight loss and symptoms of urinary tract infection. She also has a pelvic mass, which has been felt to be a diverticular abscess. I am concerned, however, that this actually represents recurrent tumor, which may also be infected. Apparently the patient's original presentation was that of an abscess within tumor. The patient's urinary symptoms are of some concern. Unfortunately, the bladder is not well visualized on CT scan, but I am concerned that the patient may have a vesicle colonic fistula. I have suggested that a urine for culture and sensitivity be obtained at this time. I have also taken the liberty of requesting a CT guided drainage of the pelvic mass. If there is a solid element to this, perhaps a biopsy can be taken as well. Apparently, this has already been ordered by Dr. De Los Santos, but for some reason has not been done. The patient and her family are very upset by this. The patient has had a CEA, which is mildly elevated for a nonsmoker at 9.3, CA-125 was 5.6. Will also obtain an HE4 and a CA 99 at this time. Any further recommendations regarding treatment will depend upon the CT guided biopsy and drainage of the pelvic mass. Once again, thank you very much for the opportunity of participating in the medical care of this very pleasant patient. I will be happy to follow this patient with you and assist in her oncologic evaluation and follow-up as necessary. Dictated By: Titi Eid MD /brandon/unruly /Document#: [id number] JORGE
[2017-04-28] MEDS: PIPER-TAZO 3.375 GM IV (PMX) 100 ML IVPB SCH ×4 (00:29→18:34)
[2017-04-28 02:00] VITALS: BP 112/59; RESP 18
[2017-04-28] MEDS: DEXTROSE 5%-0.45% NACL 1,000 ML IV SCH ×3 (02:30→22:30)
[2017-04-28 06:04] LABS: BASOPHILS % 0.5 % (0.0-2.0); EOSINOPHILS # 0.2 10^3/ul (0.0-0.5); EOSINOPHILS % 2.6 % (0.0-7.0); HEMATOCRIT 28.9 % (37.0-47.0); HEMOGLOBIN 9.2 g/dl (12.0-16.0); LYMPHOCYTES # 1.1 10^3/ul (0.8-2.9); LYMPHOCYTES % 19.8 % (15.0-51.0); MEAN CORPUSCULAR HEMOGLOBIN 29.8 pg (29.0-33.0); MEAN CORPUSCULAR HGB CONC 31.8 g/dl (32.0-37.0); MEAN CORPUSCULAR VOLUME 93.5 fl (82.0-101.0); MEAN PLATELET VOLUME 9.1 fl (7.4-10.4); MONOCYTE # 0.7 10^3/ul (0.3-0.9); MONOCYTES % 11.9 % (0.0-11.0); NEUTROPHIL # 3.7 10^3/ul (1.6-7.5); NEUTROPHILS % 64.8 % (39.0-77.0); PLATELET COUNT 417 10^3/UL (140-415); RED BLOOD COUNT 3.09 10^6/ul (4.20-5.40); RED CELL DISTRIBUTION WIDTH 14.6 % (11.5-14.5); WHITE BLOOD COUNT 5.7 10^3/ul (4.8-10.8)
[2017-04-28 06:46] LABS: MAGNESIUM 1.5 mg/dl (1.7-2.5); PHOSPHORUS 3.3 mg/dl (2.5-4.9)
[2017-04-28 06:51] LABS: CALCIUM 8.9 mg/dl (8.4-10.2); CREATININE 0.43 mg/dl (0.44-1.00); POTASSIUM 3.3 mmol/L (3.5-5.1)
[2017-04-28 08:32] VITALS: BP 117/60; RESP 19
[2017-04-28] MEDS: METHYLPREDNISOLONE 40 MG INJ IV SCH (08:35)
[2017-04-28] MEDS: LEVETIRACETAM IV 500 MG in SOD CHLORIDE 0.9% 100 ML IVPB SCH ×2 (08:38→21:00)
[2017-04-28] MEDS: TERIPARATIDE 600 MCG/2.4 ML SC SCH (08:44)
[2017-04-28] MEDS ORDERED: FENTAnyl 50 MCG/ML VIAL ONE (08:46)
[2017-04-28] MEDS ORDERED: LIDOCAINE 1% (MDV) 20 ML INJ ONE (08:46)
[2017-04-28] MEDS ORDERED: DIPHENHYDRAMINE 50 MG INJ ONE (08:46)
--- NOTE | 2017-04-28 09:41 | PN ---
Date/Time of Note Date/Time of Note DATE: 04/28/17 TIME: 09:40 Assessment/Plan VTE Prophylaxis VTE Prophylaxis Intervention: SCD's Lines/Catheters IV Catheter Type (from [facility]): Peripheral IV Assessment/Plan Chief Complaint/Hosp Course 1. Large diverticular abscess in the central pelvis. Possibly malignant. The patient being followed by general surgery, oncology and canal. The patient is scheduled for a CT-guided biopsy of the lesion. 2. Seizure disorder. Continue anticonvulsants. 3. Rheumatoid arthritis. Continue current care. 4. Sjogren's syndrome. Continue current care. 5. History of brain tumor. 6. Normocytic, normochromic anemia. Most probably anemia chronic disease. Monitor H&H closely. 7. Systemic inflammatory response syndrome. Positive urinalysis. On antibiotics as per infectious diseases. Urine culture pending. 8. Fluids, electrolytes, and nutrition. Currently n.p.o. for procedure. 9. DVT prophylaxis. Bilateral sequential compression devices. 10. Plan. Replete potassium and magnesium. Continue current management. Await biopsy of the lesion. Case discussed with Dr. Villareal. Problems: Subjective 24 Hr Interval Summary Free Text/Dictation Denies any abdominal pain. Exam/Review of Systems Vital Signs Vitals Vital Signs Date Time Temp Pulse Resp B/P Pulse Ox O2 Delivery O2 Flow Rate FiO2 04/28/17 08:32 98.1 80 19 117/60 98 Intake and Output 04/27/17 04/27/17 04/28/17 15:00 23:00 07:00 Intake Total 205 ml 1140 ml 1355 ml Balance 205 ml 1140 ml 1355 ml Exam General: Adequately build 56 year-old male lying in bed in no apparent distress. HEENT: Normocephalic, atraumatic. Eyes: Anicteric sclerae, conjunctivae clear. ENT: Nasal septum midline, oral mucosa moist. Neck supple, no JVD noticed. Respiratory: Bilaterally clear breath sounds. No use of accessory muscles of respiration. No adventitious breath sounds. Cardiovascular: S1, S2 heard. No murmurs or gallops. Abdomen: Soft, nontender, and nondistended. Bowel sounds positive in all 4 quadrants. Genitourinary: Deferred. Extremities: No cyanosis, no clubbing, no edema. Peripheral pulses palpable. Chronic deformities of bilateral metacarpal joints. Neurologic: Cranial nerves II through XII grossly intact. The patient is awake, alert, and oriented. Skin: Normal skin turgor. No skin rashes. Results Result Diagram: 04/28/1730 04/28/17 0530 Results 24 hrs Laboratory Tests Test 04/27/17 19:41 04/28/17 05:30 04/28/17 05:31 CA 19-9 Antigen 12.9 White Blood Count 5.7 Red Blood Count 3.09 L Hemoglobin 9.2 L Hematocrit 28.9 L Mean Corpuscular Volume 93.5 Mean Corpuscular Hemoglobin 29.8 Mean Corpuscular Hemoglobin Concent 31.8 L Red Cell Distribution Width 14.6 H Platelet Count 417 H Mean Platelet Volume 9.1 Neutrophils % 64.8 Lymphocytes % 19.8 Monocytes % 11.9 H Eosinophils % 2.6 Basophils % 0.5 Nucleated Red Blood Cells % 0.0 Neutrophils # 3.7 Lymphocytes # 1.1 Monocytes # 0.7 Eosinophils # 0.2 Basophils # 0.0 Nucleated Red Blood Cells # 0.0 Sodium Level 147 H Potassium Level 3.3 L Chloride Level 109 Carbon Dioxide Level 26 Anion Gap 15 Blood Urea Nitrogen 3 L Creatinine 0.43 L Glucose Level 106 Calcium Level 8.9 Phosphorus Level 3.3 Magnesium Level 1.5 L Medications Medications Current Medications Dextrose/Sodium Chloride (D5-1/2ns) 1,000 ml @ 100 mls/hr Q10H IV Last administered on 04/28/17 05:29; Admin Dose 100 MLS/HR; Start 04/23/17 at 22:30 Ondansetron HCl (Zofran Inj) 4 mg Q6H PRN IV NAUSEA AND/OR VOMITING; Start 04/23 at 22:30 Morphine Sulfate 3 mg 3 mg Q4H PRN IV PAIN Last administered on 04/25/17 10:52 ; Admin Dose 3 MG; Start 04/23/17 at 22:30 Piperacillin Sod/ Tazobactam Sod 100 ml @ 200 mls/hr Q6 IVPB Last administered on 04/28/17 05:29; Admin Dose 200 MLS/HR; Start 04/24/17 at 00:00 Levetiracetam/ Sodium Chloride (Keppra Iv/NS) 105 ml @ 430 mls/hr Q12 IVPB Last administered on 04/28/17 08:38; Admin Dose 430 MLS/HR; Start 04/24/17 at 12: 00 Lorazepam (Ativan) 2 mg Q10MIN PRN IV seizure; Start 04/24/17 at 11:00 Methylprednisolone Sodium Succinate (Solu-Medrol) 20 mg DAILY IV Last administered on 04/28/17 08:35; Admin Dose 20 MG; Start 04/24/17 at 11:30 Folic Acid (Folic Acid) 1 mg DAILY PO Last administered on 04/27/17 10:19; Admin Dose 1 MG; Start 04/24/17 at 14:30 Multivitamins Therapeutic (Theragran) 1 tab DAILY PO Last administered on 10:19; Admin Dose 1 TAB; Start 04/24/17 at 14:30 Primidone (Mysoline) 250 mg TID PO Last administered on 04/27/17 20:27; Admin Dose 250 MG; Start 04/24/17 at 15:00 Sulfasalazine (Azulfidine) 500 mg QID PO Last administered on 04/27/17 20:27; Admin Dose 500 MG; Start 04/24/17 at 17:00 Atorvastatin Calcium (Lipitor) 20 mg DAILY@21 PO Last administered on 04/27/17 20:27; Admin Dose 20 MG; Start 04/24/17 at 21:00 Non-Formulary Medication 1 DOSE = 20 mcg/ 0.08ml DAILY SC Last administered on 04/28/17 08:44; Admin Dose 20 EA; Start 04/25/17 at 09:00 LATASHA RICHARDSON NP Apr 28, 2017 09:41
[2017-04-28] MEDS ORDERED: POTASSIUM CHLORIDE (SR) 10 MEQ TAB PO ONE (10:00)
--- NOTE | 2017-04-28 10:47 | RADRPT ---
PROCEDURE: CT guided pelvic fluid collection aspiration. CLINICAL INDICATION: History of resection of mucinous neoplasm of the pelvis. Recurrent fluid col lection in the pelvis. TECHNIQUE: Informed consent was obtained. The procedure, risks, benefits, complications and alternatives were explained to the patient. Risks including bleeding and infection were explained. The patient underst ood and was willing to proceed. A procedural pause was performed. The patient's name, date of , and procedure to be performed were verified. One or more of the following dose reduction techniq ues were used: Automated exposure control, adjustment of the mA and/or kV according to patient size, use of iterative reconstruction technique. Using local anesthetic, sterile technique and CT guidance, a 19-gauge Yueh needle was advanced into the fluid collection in the midline pelvis. CT scan was performed confirming position. Thick mucin ous fluid was also aspirated confirming position. The needle from the Yueh catheter was removed, le aving the Yueh catheter in place within the fluid collection. Approximately 10 ml of thick mucinous fluid was aspirated and sent for laboratory analysis. A dressing was applied. The patient tolerate d procedure well. COMPARISON: None. FINDINGS: Images demonstrate the catheter in satisfactory position within the fluid collection. Final images d emonstrate removal of the catheter. IMPRESSION: 1. Successful CT guided aspiration of pelvic fluid collection. RPTAT: QQ .Isaias Irwin MD, MD Date Time Electronically viewed and signed by .Isaias Irwin MD, on 04/28/2017 10:47 .R/
[2017-04-28] MEDS ORDERED: MAGNESIUM SULFATE 2 GM/50 ML 50 ML IVPB ONE (11:00)
[2017-04-28] MEDS: PRIMIDONE 250 MG TAB PO SCH ×3 (11:30→20:59)
[2017-04-28] MEDS: FOLIC ACID 1 MG TAB PO SCH (11:31)
[2017-04-28] MEDS: MULTIVITAMINS THERAPEUTIC TAB PO SCH (11:31)
[2017-04-28] MEDS: SULFASALAZINE 500 MG TAB PO SCH ×4 (11:31→21:00)
[2017-04-28 13:28] VITALS: BP 119/58; RESP 18
--- NOTE | 2017-04-28 15:06 | CONS ---
Date/Time of Note Date/Time of Note DATE: 04/28/17 TIME: 14:58 Assessment/Plan Assessment/Plan Chief Complaint/Hosp Course Assessment/Plan Chief Complaint/Hosp Course ID PROGRESS NOTE CURRENT ABX: Zosyn #4 s/p Ertapenem x1 04/23 1600 24 HOUR INTERVAL SUMMARY 1. Alert. Oriented. Denies Abdominal Pain. No Acute Distress. Exam Constitutional: alert, oriented, well developed Head: atraumatic, normocephalic Eyes: EOMI, PERRL Respiratory: clear to auscultation, normal air movement Cardiovascular: nl pulses, regular rate and rhythm Gastrointestinal: Soft, (+)tender LLQ, (+)BS Extremities: normal pulses 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: nl mental status, nl speech, nl strength ID ASSESSMENT 56 yo obese Italian speaking F admit with: 1. SIRS w/increased Neuts% = left shift on WBC, no fevers, VSS 2. Acute large diverticular abscess in the central pelvis, measuring approximately 11 cm in maximal dimension. * DDx infected pelvic mass pelvic cancer=> Hx of of carcinoma ->s/p hysterectomy , oophorectomy, and omentectomy. * Hx of mucinous adenocarcinoma pelvic tumor=> Per GI she has had a 10-15# weight loss in 3 weeks? 3. UTI per UA 3+ Leuk-Esterase, >182 pyuria, 9RBC -> Micro pending 4. Nonobstructive left renal calculus is noted, without ureterolithiasis or obstructive uropathy=> PER CT 5. Bowel containing lower abdominal ventral hernia is noted, without obstruction or incarceration=> PER CT 6. PSHx: s/p Cholecystectomy (2013) /Hysterectomy(2011) / Head surgery "mass"( 1996) 7. Osteoporosis 8. Osteoarthritis 9. Rheumatoid arthritis 10. CURRENT ABX: Zosyn #4 s/p Ertapenem x1 04/23 1600 ID RECOMMENDATIONS 1. Continue Zosyn 2.Assessment/Plan Chief Complaint/Hosp Course ID PROGRESS NOTE CURRENT ABX: Zosyn #4 s/p Ertapenem x1 04/23 1600 24 HOUR INTERVAL SUMMARY * A/A/O -> KILN TENDER present for assistance in translation to Italian * Plan is for CT guided drain placement Thursday diverticular abscess=>apparently IR was not able to accommodate the patient today, the son and patient express dissatisfaction; however I explained to them during their stay that the patient has stabilized and the priority is for ABX IV therapy in addition to need for variety of consultants to give opinions on where the pelvic mass is actually an diverticular abscess vs recurrence of pelvic cancer. I also explained to the son and the patient yesterday that although the plan was for IR drainage; the IR team will be fitting her in; and high risk patients may take priority. They do not seem to understand the concept of being bumped for cases of emergency; again I attempted to assure them that she is stable, no evidence of sepsis and having the antibiotics onboard is the priority treatment. * She is stable on ABX doing well -- no fevers, WBC normalized, still has ABD pain Exam Constitutional: alert, oriented, well developed Head: atraumatic, normocephalic Eyes: EOMI, PERRL Respiratory: clear to auscultation, normal air movement Cardiovascular: nl pulses, regular rate and rhythm Gastrointestinal: Soft, (+)tender LLQ, (+)BS Extremities: normal pulses 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: nl mental status, nl speech, nl strength ID ASSESSMENT 56 yo obese Italian speaking F admit with: 1. SIRS w/increased Neuts% = left shift on WBC, no fevers, VSS 2. Acute large diverticular abscess in the central pelvis, measuring approximately 11 cm in maximal dimension. * DDx infected pelvic mass pelvic cancer=> Hx of of carcinoma ->s/p hysterectomy , oophorectomy, and omentectomy. * Hx of mucinous adenocarcinoma pelvic tumor=> Per GI she has had a 10-15# weight loss in 3 weeks? 3. UTI per UA 3+ Leuk-Esterase, >182 pyuria, 9RBC -> Micro pending 4. Nonobstructive left renal calculus is noted, without ureterolithiasis or obstructive uropathy=> PER CT 5. Bowel containing lower abdominal ventral hernia is noted, without obstruction or incarceration=> PER CT 6. PSHx: s/p Cholecystectomy (2013) /Hysterectomy(2011) / Head surgery "mass"( 1996) 7. Osteoporosis 8. Osteoarthritis 9. Rheumatoid arthritis 10. Status Post CT guided drainage of diverticular abscess CURRENT ABX: Zosyn #4 s/p Ertapenem x1 8/3 1600 ID RECOMMENDATIONS 1. Continue Zosyn 2. Status Post CT guided drainage of diverticular abscess. Pending IR availability Problems: Consultation Date/Type/Reason Admit Date/Time Apr 23, 2017 at 20:40 Initial Consult Date 04/24/17 Type of Consultation: ID Referring Provider: SAMANTHA KAPLAN Exam/Review of Systems Vital Signs Vitals Vital Signs Date Time Temp Pulse Resp B/P Pulse Ox O2 Delivery O2 Flow Rate FiO2 04/28/17 13:28 97.9 87 18 119/58 97 Intake and Output 04/27/17 04/27/17 04/28/17 15:00 23:00 07:00 Intake Total 205 ml 1140 ml 1355 ml Balance 205 ml 1140 ml 1355 ml Results Result Diagram: 04/28/17 0530 04/28/17 0530 Results 24 hrs Laboratory Tests Test 04/27/17 19:41 04/28/17 05:30 04/28/17 05:31 CA 19-9 Antigen 12.9 White Blood Count 5.7 Red Blood Count 3.09 L Hemoglobin 9.2 L Hematocrit 28.9 L Mean Corpuscular Volume 93.5 Mean Corpuscular Hemoglobin 29.8 Mean Corpuscular Hemoglobin Concent 31.8 L Red Cell Distribution Width 14.6 H Platelet Count 417 H Mean Platelet Volume 9.1 Neutrophils % 64.8 Lymphocytes % 19.8 Monocytes % 11.9 H Eosinophils % 2.6 Basophils % 0.5 Nucleated Red Blood Cells % 0.0 Neutrophils # 3.7 Lymphocytes # 1.1 Monocytes # 0.7 Eosinophils # 0.2 Basophils # 0.0 Nucleated Red Blood Cells # 0.0 Sodium Level 147 H Potassium Level 3.3 L Chloride Level 109 Carbon Dioxide Level 26 Anion Gap 15 Blood Urea Nitrogen 3 L Creatinine 0.43 L Glucose Level 106 Calcium Level 8.9 Phosphorus Level 3.3 Magnesium Level 1.5 L Medications Medications Current Medications Dextrose/Sodium Chloride (D5-1/2ns) 1,000 ml @ 100 mls/hr Q10H IV Last administered on 04/28/17 05:29; Admin Dose 100 MLS/HR; Start 04/23/17 at 22:30 Ondansetron HCl (Zofran Inj) 4 mg Q6H PRN IV NAUSEA AND/OR VOMITING; Start 04/23 at 22:30 Morphine Sulfate 3 mg 3 mg Q4H PRN IV PAIN Last administered on 04/25/17 10:52 ; Admin Dose 3 MG; Start 04/23/17 at 22:30 Piperacillin Sod/ Tazobactam Sod 100 ml @ 200 mls/hr Q6 IVPB Last administered on 04/28/17 11:30; Admin Dose 200 MLS/HR; Start 04/24/17 at 00:00 Levetiracetam/ Sodium Chloride (Keppra Iv/NS) 105 ml @ 430 mls/hr Q12 IVPB Last administered on 04/28/17 08:38; Admin Dose 430 MLS/HR; Start 04/24/17 at 12: 00 Lorazepam (Ativan) 2 mg Q10MIN PRN IV seizure; Start 04/24/17 at 11:00 Methylprednisolone Sodium Succinate (Solu-Medrol) 20 mg DAILY IV Last administered on 04/28/17 08:35; Admin Dose 20 MG; Start 04/24/17 at 11:30 Folic Acid (Folic Acid) 1 mg DAILY PO Last administered on 04/28/17 11:31; Admin Dose 1 MG; Start 04/24/17 at 14:30 Multivitamins Therapeutic (Theragran) 1 tab DAILY PO Last administered on 11:31; Admin Dose 1 TAB; Start 04/24/17 at 14:30 Primidone (Mysoline) 250 mg TID PO Last administered on 04/28/17 11:30; Admin Dose 250 MG; Start 04/24/17 at 15:00 Sulfasalazine (Azulfidine) 500 mg QID PO Last administered on 04/28/17 11:31; Admin Dose 500 MG; Start 04/24/17 at 17:00 Atorvastatin Calcium (Lipitor) 20 mg DAILY@21 PO Last administered on 04/27/17 20:27; Admin Dose 20 MG; Start 04/24/17 at 21:00 Non-Formulary Medication 1 DOSE = 20 mcg/ 0.08ml DAILY SC Last administered on 04/28/17 08:44; Admin Dose 20 EA; Start 04/25/17 at 09:00 SHUBHAM FAROOQ NP Apr 28, 2017 15:06
[2017-04-28 20:00] VITALS: BP 113/59; RESP 16
--- NOTE | 2017-04-28 20:45 | CONS ---
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 The patient now states that she has had painless gross hematuria 6 weeks ago therefore I will schedule her for a cystoscopy and possible transurethral resection fulguration of bladder and do a biopsy if there is any tumor and that would help establish a diagnosis. Depending on the diagnosis then the next step in her treatment will be decided. I have discussed these findings with her and her daughter and they are agreeable to proceed. I also did discuss these findings with Dr. Eid. Problems: Consultation Date/Type/Reason Admit Date/Time Apr 23, 2017 at 20:40 Date of Consultation: Apr 28, 2017 Type of Consultation: Urology Reason for Consultation Pelvic tumor Referring Provider: SHARON GIRALDO MD Hx of Present Illness 56-year-old female has been having abdominal pain was sent by her primary care doctor to the emergency room because of the pelvic mass. The patient is known to have had similar problem in 2010 and was operated on in 2011. 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 The patient underwent a CT scan of the abdomen and pelvis and that was reported as: 1. Findings suggestive of large diverticular abscess in the central pelvis, measuring approximately 11 cm in maximal dimension. No bowel obstruction or free intraperitoneal air is identified. Urinary bladder is not well visualized. 2. Gallbladder and uterus are surgically absent. 3. Bowel containing lower abdominal ventral hernia is noted, without obstruction or incarceration. 4. Nonobstructive left renal calculus is noted, without ureterolithiasis or obstructive uropathy. RPTAT: EE .Jose Manuel Pratt MD, MD Date Time Electronically viewed and signed by .Jose Manuel Pratt MD, on 04/23/2017 17: 58 Since the tumor is sitting and touching the bladder a urological consultation was requested. I did see the patient in her room and her daughter at her bedside. She states that in the past 6 weeks she did have gross painless hematuria. She does have nocturia about 4 times a night during the day she voids every 2-3 hours. she does have urgency and urgency incontinence and at home she does wear pads. Constitutional: no complaints, No chills, No febrile (No fever no) Eyes: no complaints ENT: No bleeding Respiratory: No cough, No shortness of breath Cardiovascular: No chest pain, No lightheadedness Gastrointestinal: pain (Mostly lower abdomen and suprapubic area), No diarrhea Genitourinary: hematuria (In the past 6 weeks, painless), other (Urinary incontinence, urgency incontinence), No flank pain Musculoskeletal: neck pain, no complaints Skin: no complaints, No rash Neurologic: other (History of brain tumor benign for which she was operated in 1988), seizure, No focal-weakness, No headache Endocrine: No polydypsia, No polyuria Psychological: anxiety, no complaints Past Medical History Medical History: other (severe rheumatoid arthritis , Sjogren's syndrome, history of seizure, none recently) Past Surgical History Past Surgical Hx: appendectomy, cholecystectomy, other (Supracervical hysterectomy with bilateral salpingo-oophorectomy, omentectomy, appendectomy, enterotomy repair, cystostomy repair) Social History Alcohol Use: none Smoking Status: Never smoker Exam/Review of Systems Vital Signs Vitals Vital Signs Date Time Temp Pulse Resp B/P Pulse Ox O2 Delivery O2 Flow Rate FiO2 04/28/17 13:28 97.9 87 18 119/58 97 Intake and Output 04/27/17 04/27/17 04/28/17 15:00 23:00 07:00 Intake Total 205 ml 1140 ml 1355 ml Balance 205 ml 1140 ml 1355 ml Results Result Diagram: 04/28/17 0530 04/28/17 0530 Results 24 hrs Laboratory Tests Test 04/28/17 05:30 04/28/17 05:31 White Blood Count 5.7 Red Blood Count 3.09 L Hemoglobin 9.2 L Hematocrit 28.9 L Mean Corpuscular Volume 93.5 Mean Corpuscular Hemoglobin 29.8 Mean Corpuscular Hemoglobin Concent 31.8 L Red Cell Distribution Width 14.6 H Platelet Count 417 H Mean Platelet Volume 9.1 Neutrophils % 64.8 Lymphocytes % 19.8 Monocytes % 11.9 H Eosinophils % 2.6 Basophils % 0.5 Nucleated Red Blood Cells % 0.0 Neutrophils # 3.7 Lymphocytes # 1.1 Monocytes # 0.7 Eosinophils # 0.2 Basophils # 0.0 Nucleated Red Blood Cells # 0.0 Sodium Level 147 H Potassium Level 3.3 L Chloride Level 109 Carbon Dioxide Level 26 Anion Gap 15 Blood Urea Nitrogen 3 L Creatinine 0.43 L Glucose Level 106 Calcium Level 8.9 Phosphorus Level 3.3 Magnesium Level 1.5 L Medications Medications Current Medications Dextrose/Sodium Chloride (D5-1/2ns) 1,000 ml @ 100 mls/hr Q10H IV Last administered on 04/28/17 05:29; Admin Dose 100 MLS/HR; Start 04/23/17 at 22:30 Ondansetron HCl (Zofran Inj) 4 mg Q6H PRN IV NAUSEA AND/OR VOMITING; Start 04/23 at 22:30 Morphine Sulfate 3 mg 3 mg Q4H PRN IV PAIN Last administered on 04/25/17 10:52 ; Admin Dose 3 MG; Start 04/23/17 at 22:30 Piperacillin Sod/ Tazobactam Sod 100 ml @ 200 mls/hr Q6 IVPB Last administered on 04/28/17 18:34; Admin Dose 200 MLS/HR; Start 04/24/17 at 00:00 Levetiracetam/ Sodium Chloride (Keppra Iv/NS) 105 ml @ 430 mls/hr Q12 IVPB Last administered on 04/28/17 08:38; Admin Dose 430 MLS/HR; Start 04/24/17 at 12: 00 Lorazepam (Ativan) 2 mg Q10MIN PRN IV seizure; Start 04/24/17 at 11:00 Methylprednisolone Sodium Succinate (Solu-Medrol) 20 mg DAILY IV Last administered on 04/28/17 08:35; Admin Dose 20 MG; Start 04/24/17 at 11:30 Folic Acid (Folic Acid) 1 mg DAILY PO Last administered on 04/28/17 11:31; Admin Dose 1 MG; Start 04/24/17 at 14:30 Multivitamins Therapeutic (Theragran) 1 tab DAILY PO Last administered on 11:31; Admin Dose 1 TAB; Start 04/24/17 at 14:30 Primidone (Mysoline) 250 mg TID PO Last administered on 04/28/17 15:22; Admin Dose 250 MG; Start 04/24/17 at 15:00 Sulfasalazine (Azulfidine) 500 mg QID PO Last administered on 04/28/17 18:34; Admin Dose 500 MG; Start 04/24/17 at 17:00 Atorvastatin Calcium (Lipitor) 20 mg DAILY@21 PO Last administered on 04/27/17 20:27; Admin Dose 20 MG; Start 04/24/17 at 21:00 Non-Formulary Medication 1 DOSE = 20 mcg/ 0.08ml DAILY SC Last administered on 04/28/17 08:44; Admin Dose 20 EA; Start 04/25/17 at 09:00 TRESSA SIMMONS MD Apr 28, 2017 20:38
[2017-04-28] MEDS: ATORVASTATIN 20 MG TAB PO SCH (20:59)
--- NOTE | 2017-04-28 21:37 | PN ---
DATE: 04/28/2017 MEDICAL ONCOLOGY PROGRESS NOTE: SUBJECTIVE: Patient is feeling well. She has no new complaints. The patient did undergo a CT guided attempt at aspiration of the pelvic fluid collection. All that was obtained, however, was 10 mL of thick mucinous fluid. There was no biopsy unfortunately obtained. No drainage catheter left in place. OBJECTIVE DATA: GENERAL: The patient is a well-developed, mildly obese female, in no acute distress. VITAL SIGNS: Temperature 97.9 orally, pulse 87 per minute and regular, respirations 18, blood pressure 119/58, and pulse oximetry 97 percent on room air. CHEST: No ecchymosis, no petechiae or rashes. HEENT: No mucosal lesions. No scleral icterus. Patient is normocephalic. Tongue is well papillated. There is no gingival hyperplasia. No hypertrophy of Waldeyer's ring. NECK: Neck is supple. There is no jugular distention or thyroid enlargement. No carotid bruits. CHEST: Clear to auscultation, percussion. No rhonchi, wheezes, rales, or rubs. There is no pain on percussion of spine, sternum, clavicles or ribs. NODES: No palpable lymphadenopathy in lymph node bearing area. BREASTS: No masses, skin retraction, nipple inversion. HEART: Regular sinus rhythm. No S3 or S4, or murmurs. ABDOMEN: Abdomen is distended. There is a lower abdominal ventral hernia, which is easily reducible. Unable to palpate a distinct mass. There is a dressing in place over the aspiration site, no drainage from the site. No evidence of infection. EXTREMITIES: No clubbing or cyanosis. There are the changes consistent with rheumatoid arthritis. No palpable cords or Adonis's sign. NEUROLOGIC: Neurologic is normal. LABORATORY: White count 5700, hemoglobin 9.2, hematocrit 28.7, and platelet count 417,000. Sodium 147, potassium 3.3, BUN 3, and creatinine 0.43. A CA 19-9 is 12.9. ASSESSMENT: 1. 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 2. Rheumatoid arthritis. 3. Sjogren syndrome. PLAN: I have had a long discussion with the patient and her son. I have told them that I feel that the aspiration today suggests that this is a recurrence of the previously resected low-grade mucinous adenocarcinoma. I have explained that this mass is a result of a microscopic cells left behind after the 2012 surgery. There does not appear to be any evidence of systemic metastases. I therefore feel that this patient is a good candidate for an attempted resection. The patient has had a CT scan of the abdomen and pelvis which shows only the mass in the central pelvis. There is no evidence of bowel obstruction. No evidence of hepatic, renal or splenic abnormalities. There is no evidence of hydroureter or hydronephrosis, although I am concerned that the urinary bladder may be involved. We will obtain a CT scan of the chest with and without contrast as well to rule out any type of pulmonary parenchymal or mediastinal lesions. Dictated By: Titi Eid MD /brandon/iona /Document#: [id number]
--- NOTE | 2017-04-28 22:26 | PN ---
Date/Time of Note Date/Time of Note DATE: 04/28/17 TIME: 21:54 Assessment/Plan Lines/Catheters IV C[facility]ter Type (from [facility]): Peripheral IV Assessment/Plan Chief Complaint/Hosp Course 1. Central pelvic abscess: significant history of pelvic cancer; concern for malignancy, no symptoms of infection; s/p ir drain, mucinous fluid sent for analysis; -may require surgical removal -urology to perform cystoscopy and possible transurethral resection fulguration of bladder 2. UTI: multiorganism pathogens -abx per sensitivity 3.Normocytic anemia: no acute bleed noted -monitor -transfuse as needed 4. Hypomagnesemia: -replete and monitor 5. History of pelvic ca, brain tumor: concern for recurrence -as above 6. Hypokalemia: normalized 7. Hypernatremia: -judicious fluids 8. Loose stools: cdiff negative -if persistent may need further stool studies Patient seen and examined in collaboration with Dr. Jonatan De Los Santos. Thank you. Problems: Subjective 24 Hr Interval Summary s/p paracentesis- only small amount of fluid able to be aspirated. Multiple stools. Feels fatigued. No c/o pain fevers, chills, n/v/d/dysuria. Exam/Review of Systems Vital Signs Vitals Vital Signs Date Time Temp Pulse Resp B/P Pulse Ox O2 Delivery O2 Flow Rate FiO2 04/29/17 07:56 98.3 81 18 124/72 98 Intake and Output 04/28/17 04/28/17 04/29/17 15:00 23:00 07:00 Intake Total 555 ml 1465 ml 1710 ml Output Total 900 ml 450 ml Balance 555 ml 565 ml 1260 ml Exam Free Text/Dictation Constitutional: alert, oriented, pleasant Psych: anxiety, no complaints Head: atraumatic, normocephalic Eyes: nl lids, nl sclera ENMT: mucosa pink and moist, nl nasal mucosa & septum Neck: non-tender, supple Respiratory: clear to auscultation, normal air movement Cardiovascular: regular rate and rhythm, No edema Gastrointestinal: mass (palpable mass in suprapubic region), soft, min tender, rotund, incision site with dry bandaid- no drainage Musculoskeletal: nl extremities to inspection, nl gait and stance Extremities: normal pulses, No edema 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: nl mental status, nl speech, nl strength Lymph: No nl lymph nodes Results Result Diagram: 04/29/17 0526 04/29/17 0526 JENIFER CABAN NP Apr 28, 2017 22:04
[2017-04-29] VITALS (15 sets, daily range): BP systolic 106–141; BP diastolic 57–78; PULSE 78–89; RESP 16–25
[2017-04-29] MEDS: PIPER-TAZO 3.375 GM IV (PMX) 100 ML IVPB SCH ×4 (00:30→18:00)
[2017-04-29] MEDS: SULFASALAZINE 500 MG TAB PO SCH ×6 (00:30→23:44)
[2017-04-29] MEDS: DEXTROSE 5%-0.45% NACL 1,000 ML IV SCH ×3 (00:31→15:25)
[2017-04-29 06:36] LABS: BASOPHILS % 0.5 % (0.0-2.0); EOSINOPHILS # 0.2 10^3/ul (0.0-0.5); EOSINOPHILS % 2.8 % (0.0-7.0); HEMATOCRIT 30.2 % (37.0-47.0); HEMOGLOBIN 9.3 g/dl (12.0-16.0); LYMPHOCYTES % 15.7 % (15.0-51.0); MEAN CORPUSCULAR HGB CONC 30.8 g/dl (32.0-37.0); MEAN CORPUSCULAR VOLUME 94.1 fl (82.0-101.0); MEAN PLATELET VOLUME 9.4 fl (7.4-10.4); MONOCYTE # 0.7 10^3/ul (0.3-0.9); MONOCYTES % 11.6 % (0.0-11.0); NEUTROPHIL # 4.4 10^3/ul (1.6-7.5); NEUTROPHILS % 69.1 % (39.0-77.0); PLATELET COUNT 424 10^3/UL (140-415); RED BLOOD COUNT 3.21 10^6/ul (4.20-5.40); RED CELL DISTRIBUTION WIDTH 15.1 % (11.5-14.5); WHITE BLOOD COUNT 6.4 10^3/ul (4.8-10.8)
[2017-04-29 07:00] LABS: CALCIUM 8.8 mg/dl (8.4-10.2); CREATININE 0.42 mg/dl (0.44-1.00); POTASSIUM 3.5 mmol/L (3.5-5.1)
[2017-04-29 07:09] LABS: MAGNESIUM 1.7 mg/dl (1.7-2.5); PHOSPHORUS 3.1 mg/dl (2.5-4.9)
[2017-04-29] MEDS: FOLIC ACID 1 MG TAB PO SCH (08:27)
[2017-04-29] MEDS: PRIMIDONE 250 MG TAB PO SCH ×4 (08:27→23:44)
[2017-04-29] MEDS: MULTIVITAMINS THERAPEUTIC TAB PO SCH (08:27)
[2017-04-29] MEDS: METHYLPREDNISOLONE 40 MG INJ IV SCH (08:28)
[2017-04-29] MEDS: LEVETIRACETAM IV 500 MG in SOD CHLORIDE 0.9% 100 ML IVPB SCH ×3 (08:28→23:47)
[2017-04-29] MEDS: TERIPARATIDE 600 MCG/2.4 ML SC SCH (08:35)
--- NOTE | 2017-04-29 10:29 | PN ---
Date/Time of Note Date/Time of Note DATE: 04/29/17 TIME: 10:19 Assessment/Plan Lines/Catheters IV Catheter Type (from [facility]): Peripheral IV Assessment/Plan Chief Complaint/Hosp Course 1. Central pelvic abscess: significant history of pelvic cancer; concern for malignancy, no symptoms of infection; s/p ir drain, mucinous fluid sent for analysis; -may require surgical removal -urology to perform cystoscopy and possible transurethral resection fulguration of bladder today 2. UTI: multiorganism pathogens -abx per sensitivity 3.Normocytic anemia: no acute bleed noted -monitor -transfuse as needed 4. Hypomagnesemia: normalized -replete and monitor 5. History of pelvic ca, brain tumor: concern for recurrence -as above -per onc 6. Hypokalemia: normalized 7. Hypernatremia: improving -judicious fluids 8. Loose stools: cdiff negative; persistent: 10 stools per chart; -if persistent may need further stool studies Patient seen and examined in collaboration with Dr. Jonatan De Los Santos. Thank you. Problems: Subjective 24 Hr Interval Summary Feels ok. No abdominal/pelvic pain/discomfort. 10 loose stools overnight. No fevers, chills, cp, palpitations, n/v/d/dysuria. For cystoscopy today. Exam/Review of Systems Vital Signs Vitals Vital Signs Date Time Temp Pulse Resp B/P Pulse Ox O2 Delivery O2 Flow Rate FiO2 04/29/17 07:56 98.3 81 18 124/72 98 Intake and Output 04/28/17 04/28/17 04/29/17 15:00 23:00 07:00 Intake Total 555 ml 1465 ml 1710 ml Output Total 900 ml 450 ml Balance 555 ml 565 ml 1260 ml Exam Free Text/Dictation Constitutional: alert, oriented, pleasant Psych: anxiety, no complaints Head: atraumatic, normocephalic Eyes: nl lids, nl sclera ENMT: mucosa pink and moist, nl nasal mucosa & septum Neck: non-tender, supple Respiratory: clear to auscultation, normal air movement Cardiovascular: regular rate and rhythm, No edema Gastrointestinal: mass (palpable mass in suprapubic region), soft, min tender, rotund, no drain from incision site Musculoskeletal: nl extremities to inspection, nl gait and stance Extremities: normal pulses, No edema 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: nl mental status, nl speech, nl strength Lymph: No nl lymph nodes Results Result Diagram: 04/29/17 0526 04/29/17 0526 JENIFER CABAN NP Apr 29, 2017 10:29
--- NOTE | 2017-04-29 12:10 | PN ---
Date/Time of Note Date/Time of Note DATE: 04/29/17 TIME: 12:08 Assessment/Plan VTE Prophylaxis VTE Prophylaxis Intervention: SCD's Lines/Catheters IV [facility]): Peripheral IV Assessment/Plan Chief Complaint/Hosp Course 1. Large diverticular abscess in the central pelvis. Possibly malignant. The patient being followed by general surgery, oncology and Urology. Status post CT -guided biopsy of the lesion. Possible recurrence of pelvic mucinous adenocarcinoma of unknown primary as per oncology. 2. Seizure disorder. Continue anticonvulsants. 3. Rheumatoid arthritis. Continue current care. 4. Sjogren's syndrome. Continue current care. 5. History of brain tumor. Status post resection. 6. Normocytic, normochromic anemia. Most probably anemia chronic disease. Monitor H&H closely. 7. Systemic inflammatory response syndrome. Positive urinalysis. On antibiotics as per infectious diseases. 8. Fluids, electrolytes, and nutrition. Currently n.p.o. for procedure. 9. DVT prophylaxis. Bilateral sequential compression devices. 10. Plan. Continue current management. The patient is scheduled for cystoscopy today. Case discussed with Dr. Villareal. Problems: Subjective 24 Hr Interval Summary Free Text/Dictation Denies any pain. Exam/Review of Systems Vital Signs Vitals Vital Signs Date Time Temp Pulse Resp B/P Pulse Ox O2 Delivery O2 Flow Rate FiO2 04/29/17 07:56 98.3 81 18 124/72 98 Intake and Output 04/28/17 04/28/17 04/29/17 15:00 23:00 07:00 Intake Total 555 ml 1465 ml 1710 ml Output Total 900 ml 450 ml Balance 555 ml 565 ml 1260 ml Exam General: Adequately build 56 year-old male lying in bed in no apparent distress. HEENT: Normocephalic, atraumatic. Eyes: Anicteric sclerae, conjunctivae clear. ENT: Nasal septum midline, oral mucosa moist. Neck supple, no JVD noticed. Respiratory: Bilaterally clear breath sounds. No use of accessory muscles of respiration. No adventitious breath sounds. Cardiovascular: S1, S2 heard. No murmurs or gallops. Abdomen: Soft, nontender, and nondistended. Bowel sounds positive in all 4 quadrants. Genitourinary: Deferred. Extremities: No cyanosis, no clubbing, no edema. Peripheral pulses palpable. Chronic deformities of bilateral metacarpal joints. Neurologic: Cranial nerves II through XII grossly intact. The patient is awake, alert, and oriented. Skin: Normal skin turgor. No skin rashes. Results Result Diagram: 04/29/1752504/29/1726 Results 24 hrs Laboratory Tests Test 04/29/17 05:26 White Blood Count 6.4 Red Blood Count 3.21 L Hemoglobin 9.3 L Hematocrit 30.2 L Mean Corpuscular Volume 94.1 Mean Corpuscular Hemoglobin 29.0 Mean Corpuscular Hemoglobin Concent 30.8 L Red Cell Distribution Width 15.1 H Platelet Count 424 H Mean Platelet Volume 9.4 Neutrophils % 69.1 Lymphocytes % 15.7 Monocytes % 11.6 H Eosinophils % 2.8 Basophils % 0.5 Nucleated Red Blood Cells % 0.0 Neutrophils # 4.4 Lymphocytes # 1.0 Monocytes # 0.7 Eosinophils # 0.2 Basophils # 0.0 Nucleated Red Blood Cells # 0.0 Sodium Level 145 H Potassium Level 3.5 Chloride Level 107 Carbon Dioxide Level 26 Anion Gap 16 Blood Urea Nitrogen 3 L Creatinine 0.42 L Glucose Level 107 Calcium Level 8.8 Phosphorus Level 3.1 Magnesium Level 1.7 Medications Medications Current Medications Dextrose/Sodium Chloride (D5-1/2ns) 1,000 ml @ 100 mls/hr Q10H IV Last administered on 04/29/17 00:31; Admin Dose 100 MLS/HR; Start 04/23/17 at 22:30 Ondansetron HCl (Zofran Inj) 4 mg Q6H PRN IV NAUSEA AND/OR VOMITING; Start 04/23 at 22:30 Morphine Sulfate 3 mg 3 mg Q4H PRN IV PAIN Last administered on 04/25/17 10:52 ; Admin Dose 3 MG; Start 04/23/17 at 22:30 Piperacillin Sod/ Tazobactam Sod 100 ml @ 200 mls/hr Q6 IVPB Last administered on 04/29/17 05:30; Admin Dose 200 MLS/HR; Start 04/24/17 at 00:00 Levetiracetam/ Sodium Chloride (Keppra Iv/NS) 105 ml @ 430 mls/hr Q12 IVPB Last administered on 04/29/17 08:28; Admin Dose 430 MLS/HR; Start 04/24/17 at 12: 00 Lorazepam (Ativan) 2 mg Q10MIN PRN IV seizure; Start 04/24/17 at 11:00 Methylprednisolone Sodium Succinate (Solu-Medrol) 20 mg DAILY IV Last administered on 04/29/17 08:28; Admin Dose 20 MG; Start 04/24/17 at 11:30 Folic Acid (Folic Acid) 1 mg DAILY PO Last administered on 04/29/17 08:27; Admin Dose 1 MG; Start 04/24/17 at 14:30 Multivitamins Therapeutic (Theragran) 1 tab DAILY PO Last administered on 08:27; Admin Dose 1 TAB; Start 04/24/17 at 14:30 Primidone (Mysoline) 250 mg TID PO Last administered on 04/29/17 08:27; Admin Dose 250 MG; Start 04/24/17 at 15:00 Sulfasalazine (Azulfidine) 500 mg QID PO Last administered on 04/29/17 08:28; Admin Dose 500 MG; Start 04/24/17 at 17:00 Atorvastatin Calcium (Lipitor) 20 mg DAILY@21 PO Last administered on 04/28/17 20:59; Admin Dose 20 MG; Start 04/24/17 at 21:00 Non-Formulary Medication 1 DOSE = 20 mcg/ 0.08ml DAILY SC Last administered on 04/29/17 08:35; Admin Dose 20 EA; Start 04/25/17 at 09:00 LATASHA RICHARDSON NP Apr 29, 2017 12:10
--- NOTE | 2017-04-29 18:55 | CONS ---
Date/Time of Note Date/Time of Note DATE: 04/29/17 TIME: 18:47 Assessment/Plan Assessment/Plan Chief Complaint/Hosp Course ID PROGRESS NOTE CURRENT ABX: Zosyn #6 s/p Ertapenem x1 04/23 1600 24 HOUR INTERVAL SUMMARY * A/A/O -> VSS, no fevers, TMax 99.0 * s/p 04/28/17: IR drainage of mucinous of pelvic fluid collection->significant history of pelvic cancer; concern for malignancy, no symptoms of infection; * 04/28/17 Drainage Cx (-) * CA 19-9 WNL * Initial dubious etiology of pelvic mass DDx sigmoid abscess vs recurrent carcinoma => now less likely abscess, more likely may require surgical removal Exam Constitutional: alert, oriented, well developed Head: atraumatic, normocephalic Eyes: EOMI, PERRL Respiratory: clear to auscultation, normal air movement Cardiovascular: nl pulses, regular rate and rhythm Gastrointestinal: Soft, (+)tender LLQ, (+)BS Extremities: normal pulses 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: nl mental status, nl speech, nl strength ID ASSESSMENT 56 yo obese Turkish speaking F admit with: 1. SIRS w/increased Neuts% = left shift on WBC, no fevers, VSS 2. Acute large diverticular abscess in the central pelvis, measuring approximately 11 cm in maximal dimension. * DDx infected pelvic mass pelvic cancer=> Hx of of carcinoma ->s/p hysterectomy , oophorectomy, and omentectomy. * Hx of mucinous adenocarcinoma pelvic tumor=> Per GI she has had a 10-15# weight loss in 3 weeks? 3. UTI per UA 3+ Leuk-Esterase, >182 pyuria, 9RBC ->Micro (+)Yeast * URINE CULTURE Preliminary Organism 1 KAILEY ALBICANS COLONY COUNT 50,000 - 60,000 CFU/ml 4. Nonobstructive left renal calculus is noted, without ureterolithiasis or obstructive uropathy=> PER CT 5. Bowel containing lower abdominal ventral hernia is noted, without obstruction or incarceration=> PER CT 6. PSHx: s/p Cholecystectomy (2013) /Hysterectomy(2011) / Head surgery "mass"( 1996) 7. Osteoporosis 8. Osteoarthritis 9. Rheumatoid arthritis CURRENT ABX: Zosyn #6 s/p Ertapenem x1 04/23 1600 ID RECOMMENDATIONS 1. Continue Zosyn-> await final micro -- likely DC ABX if micro final is negative . . . Problems: Consultation Date/Type/Reason Admit Date/Time Apr 23, 2017 at 20:40 Initial Consult Date 04/24/17 Type of Consultation: ID Referring Provider: SHARON GIRALDO MD Exam/Review of Systems Vital Signs Vitals Vital Signs Date Time Temp Pulse Resp B/P Pulse Ox O2 Delivery O2 Flow Rate FiO2 04/29/17 14:18 99.0 75 18 106/57 97 Intake and Output 04/28/17 04/28/17 04/29/17 15:00 23:00 07:00 Intake Total 555 ml 1465 ml 1710 ml Output Total 900 ml 450 ml Balance 555 ml 565 ml 1260 ml Results Result Diagram: 04/29/17 0526 04/29/17 0526 Results 24 hrs Laboratory Tests Test 04/29/17 05:26 White Blood Count 6.4 Red Blood Count 3.21 L Hemoglobin 9.3 L Hematocrit 30.2 L Mean Corpuscular Volume 94.1 Mean Corpuscular Hemoglobin 29.0 Mean Corpuscular Hemoglobin Concent 30.8 L Red Cell Distribution Width 15.1 H Platelet Count 424 H Mean Platelet Volume 9.4 Neutrophils % 69.1 Lymphocytes % 15.7 Monocytes % 11.6 H Eosinophils % 2.8 Basophils % 0.5 Nucleated Red Blood Cells % 0.0 Neutrophils # 4.4 Lymphocytes # 1.0 Monocytes # 0.7 Eosinophils # 0.2 Basophils # 0.0 Nucleated Red Blood Cells # 0.0 Sodium Level 145 H Potassium Level 3.5 Chloride Level 107 Carbon Dioxide Level 26 Anion Gap 16 Blood Urea Nitrogen 3 L Creatinine 0.42 L Glucose Level 107 Calcium Level 8.8 Phosphorus Level 3.1 Magnesium Level 1.7 Medications Medications Current Medications Dextrose/Sodium Chloride (D5-1/2ns) 1,000 ml @ 100 mls/hr Q10H IV Last administered on 04/29/17 15:25; Admin Dose 100 MLS/HR; Start 04/23/17 at 22:30 Ondansetron HCl (Zofran Inj) 4 mg Q6H PRN IV NAUSEA AND/OR VOMITING; Start 04/23 at 22:30 Morphine Sulfate 3 mg 3 mg Q4H PRN IV PAIN Last administered on 04/25/17 10:52 ; Admin Dose 3 MG; Start 04/23/17 at 22:30 Piperacillin Sod/ Tazobactam Sod 100 ml @ 200 mls/hr Q6 IVPB Last administered on 04/29/17 18:00; Admin Dose 200 MLS/HR; Start 04/24/17 at 00:00 Levetiracetam/ Sodium Chloride (Keppra Iv/NS) 105 ml @ 430 mls/hr Q12 IVPB Last administered on 04/29/17 08:28; Admin Dose 430 MLS/HR; Start 04/24/17 at 12: 00 Lorazepam (Ativan) 2 mg Q10MIN PRN IV seizure; Start 04/24/17 at 11:00 Methylprednisolone Sodium Succinate (Solu-Medrol) 20 mg DAILY IV Last administered on 04/29/17 08:28; Admin Dose 20 MG; Start 04/24/17 at 11:30 Folic Acid (Folic Acid) 1 mg DAILY PO Last administered on 04/29/17 08:27; Admin Dose 1 MG; Start 04/24/17 at 14:30 Multivitamins Therapeutic (Theragran) 1 tab DAILY PO Last administered on 08:27; Admin Dose 1 TAB; Start 04/24/17 at 14:30 Primidone (Mysoline) 250 mg TID PO Last administered on 04/29/17 08:27; Admin Dose 250 MG; Start 04/24/17 at 15:00 Sulfasalazine (Azulfidine) 500 mg QID PO Last administered on 04/29/17 08:28; Admin Dose 500 MG; Start 04/24/17 at 17:00 Atorvastatin Calcium (Lipitor) 20 mg DAILY@21 PO Last administered on 04/28/17 20:59; Admin Dose 20 MG; Start 04/24/17 at 21:00 Non-Formulary Medication 1 DOSE = 20 mcg/ 0.08ml DAILY SC Last administered on 04/29/17 08:35; Admin Dose 20 EA; Start 04/25/17 at 09:00 THELMA FULTON NP Apr 29, 2017 18:55
[2017-04-29] MEDS ORDERED: FLUCONAZOLE 200 MG/NS (PMX) 100 ML IVPB ONE ×2 (19:00→22:30)
--- NOTE | 2017-04-29 19:19 | HPN ---
Date/Time of Note Date/Time of Note DATE: 04/29/17 TIME: 19:19 Interval H&P Admission Note Pt. seen H&P reviewed: No system changes TRESSA SIMMONS MD Apr 29, 2017 19:19
[2017-04-29] MEDS ORDERED: MIDAZOLAM 1 MG/ML 2 ML INJ ONE (19:49)
[2017-04-29] MEDS ORDERED: PROPOFOL 20 ML ONE (19:49)
[2017-04-29] MEDS ORDERED: FENTAnyl 50 MCG/ML VIAL ONE (19:49)
[2017-04-29] MEDS ORDERED: METOCLOPRAMIDE 10 MG INJ ONE (20:05)
[2017-04-29] MEDS ORDERED: ONDANSETRON 4 MG INJ ONE (20:05)
[2017-04-29] MEDS ORDERED: DEXAMETHASONE 4 MG/ML 1 ML INJ ONE (20:05)
[2017-04-29] MEDS ORDERED: FENTAnyl 50 MCG/ML VIAL IV PRN ×3 (20:30)
[2017-04-29] MEDS ORDERED: MEPERIDINE 25 MG INJ IV PRN (20:30)
[2017-04-29] MEDS ORDERED: METOCLOPRAMIDE 10 MG INJ IV PRN (20:30)
[2017-04-29] MEDS ORDERED: morphine (1 MG/ML) 10ML SYRINGE IV PRN ×3 (20:30)
[2017-04-29] MEDS ORDERED: EPHEDrine SULFATE 50 MG/5 ML SYG IV PRN (20:30)
[2017-04-29] MEDS ORDERED: ONDANSETRON 4 MG INJ IV PRN (20:30)
[2017-04-29] MEDS ORDERED: DIPHENHYDRAMINE 50 MG INJ IV PRN (20:30)
[2017-04-29] MEDS ORDERED: hydrALAzine 20 MG INJ IV PRN (20:30)
[2017-04-29] MEDS ORDERED: LABETALOL HCL 20MG INJ IV PRN (20:30)
--- NOTE | 2017-04-29 20:45 | PN ---
DATE: SUBJECTIVE: Patient states she is doing well except for fatigue. She has no complaints of abdominal pain. There is no dysuria or hematuria. OBJECTIVE DATA: The patient is a well-developed, well-nourished female, in no acute distress. VITAL SIGNS: Temperature 99 orally, pulse 75 per minute and regular, respirations 18, blood pressure 106/57, pulse oximetry 97 percent on room air. SKIN: No ecchymosis, no petechiae or rashes. HEENT: No mucosal lesions. No scleral icterus. Oral mucosa is moist without lesions. NECK: Neck is supple with no jugular distention, or thyroid enlargement. CHEST: Chest clear to auscultation, percussion. No rhonchi, wheezes, rales, or rubs. NODES: Nodes, no palpable lymphadenopathy. HEART: Regular sinus rhythm. No SCs, S4 or murmurs, no rubs. ABDOMEN: Mildly distended and soft. There is a ventral wall hernia. Unable to detect any particular masses. EXTREMITIES: No clubbing, edema, or cyanosis. There are the changes consistent with rheumatoid arthritis. NEUROLOGIC: Neurologic is normal. ASSESSMENT AND PLAN: 1. 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 2. Rheumatoid arthritis. 3. Sjogren syndrome. The patient is to have a cystoscopy today. This patient has been seen by Dr. 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 Review of MRIs dating back to 2011 when the patient had first resection does show a structure extending from the bladder to the umbilicus suggesting suggestive of a urachus. If this in fact is a urachal tumor, the treatment of choice is surgery. This may include a partial cystectomy. There is no place for neoadjuvant chemotherapy or radiation therapy. I have described the lesion to the patient and her son. Dictated By: Titi Eid MD /brandon/erin /Document#: [id number]
[2017-04-29] MEDS: ATORVASTATIN 20 MG TAB PO SCH ×2 (21:00→23:44)
[2017-04-29] MEDS ORDERED: CEFAZOLIN 1 GM INJ ONE (21:07)
--- NOTE | 2017-04-29 21:26 | OPR ---
Date/Time of Note Date/Time of Note DATE: 04/29/17 TIME: 21:19 Operative Report Procedure Date: Apr 29, 2017 Preoperative Diagnosis Bladder tumor possible urachal carcinoma Postoperative Diagnosis Bladder tumor most likely urachal carcinoma, pending pathology report Operation Performed Transurethral resection of bladder tumors Surgeon: TRESSA SIMMONS MD Anesthesiologist: AMRY HASSAN MD Estimated Blood Loss: 0 - 10 ml's Specimens Bladder tumors was mucus and stones Complications: no Pt Condition Post Procedure: stable Indications Pelvic tumor invading into the bladder or may be originating from the bladder as a urachal carcinoma Operative\Procedure Findings The bladder was full of mucus, tumor located anterior bladder at the dome and most likely is a urachal carcinoma Procedure Description The patient was brought to the operating room , general anesthesia was induced. The patient was positioned in the lithotomy position. Time out was done and the patient was identified by her name, birthdate and the procedure. The patient was given 2 g of Ancef IV at the start of the procedure. The genital area was prepped and draped in the usual sterile manner. #22 Yemeni cystoscope sheath was introduced into the bladder. Urine was collected for culture and sensitivity. Since the bladder was full of mucus I had to irrigate the bladder and remove all the mucus out I did use the TOK.tv evacuator. The tumor was then visualized and it had also calcified stones on it. I removed the stones. I used the 26 Yemeni bipolar resectoscope sheath to remove the stones and resect the tumor. I did resect about half of the tumor, did not remove all the tumor as the patient will need partial cystectomy in addition to the removal of the pelvic tumor that is mostly outside of the bladder and that will be done at a later date. At the end of the procedure #24 Yemeni three-way Stubbs catheter was inserted and the balloon was inflated with 30 mL of sterile water. Continuous bladder irrigation was started in the operating room and the patient was transferred to the recovery room in stable and satisfactory condition. TRESSA SIMMONS MD Apr 29, 2017 21:26
[2017-04-30] MEDS: PIPER-TAZO 3.375 GM IV (PMX) 100 ML IVPB SCH ×4 (01:07→17:51)
[2017-04-30 02:46] VITALS: BP 106/55; RESP 18
[2017-04-30] MEDS: DEXTROSE 5%-0.45% NACL 1,000 ML IV SCH ×2 (04:30→12:10)
[2017-04-30 06:36] LABS: BASOPHILS % 0.1 % (0.0-2.0); HEMATOCRIT 31.4 % (37.0-47.0); HEMOGLOBIN 9.7 g/dl (12.0-16.0); LYMPHOCYTES # 1.1 10^3/ul (0.8-2.9); LYMPHOCYTES % 16.4 % (15.0-51.0); MEAN CORPUSCULAR HEMOGLOBIN 29.1 pg (29.0-33.0); MEAN CORPUSCULAR HGB CONC 30.9 g/dl (32.0-37.0); MEAN CORPUSCULAR VOLUME 94.3 fl (82.0-101.0); MEAN PLATELET VOLUME 9.4 fl (7.4-10.4); MONOCYTE # 0.7 10^3/ul (0.3-0.9); MONOCYTES % 10.8 % (0.0-11.0); NEUTROPHILS % 72.4 % (39.0-77.0); PLATELET COUNT 444 10^3/UL (140-415); RED BLOOD COUNT 3.33 10^6/ul (4.20-5.40); RED CELL DISTRIBUTION WIDTH 14.9 % (11.5-14.5); WHITE BLOOD COUNT 6.9 10^3/ul (4.8-10.8)
[2017-04-30 06:54] LABS: ANION GAP 15 (8-16); CALCIUM 8.5 mg/dl (8.4-10.2); CARBON DIOXIDE 27 mmol/L (21-31); CHLORIDE 110 mmol/L (97-110); CREATININE 0.43 mg/dl (0.44-1.00); GLUCOSE 98 mg/dl (70-220); POTASSIUM 3.6 mmol/L (3.5-5.1); SODIUM 148 mmol/L (135-144)
[2017-04-30 06:57] LABS: BLOOD UREA NITROGEN < 2 mg/dl (7-20)
[2017-04-30 07:01] LABS: MAGNESIUM 1.5 mg/dl (1.7-2.5); PHOSPHORUS 3.7 mg/dl (2.5-4.9)
[2017-04-30 08:29] VITALS: BP 125/56; RESP 16
[2017-04-30] MEDS: MULTIVITAMINS THERAPEUTIC TAB PO SCH (08:53)
[2017-04-30] MEDS: SULFASALAZINE 500 MG TAB PO SCH ×4 (08:53→21:32)
[2017-04-30] MEDS: PRIMIDONE 250 MG TAB PO SCH ×3 (08:53→21:32)
[2017-04-30] MEDS: FLUCONAZOLE 100 MG TAB PO SCH (08:53)
[2017-04-30] MEDS: FOLIC ACID 1 MG TAB PO SCH (08:54)
[2017-04-30] MEDS: METHYLPREDNISOLONE 40 MG INJ IV SCH (08:55)
[2017-04-30] MEDS: TERIPARATIDE 600 MCG/2.4 ML SC SCH (08:57)
[2017-04-30] MEDS: LEVETIRACETAM IV 500 MG in SOD CHLORIDE 0.9% 100 ML IVPB SCH (09:02)
--- NOTE | 2017-04-30 12:32 | PN ---
Date/Time of Note Date/Time of Note DATE: 04/30/17 TIME: 12:23 Assessment/Plan Lines/Catheters IV Catheter Type (from [facility]): Peripheral IV Stubbs in Place (from [facility]): Yes Assessment/Plan Chief Complaint/Hosp Course 1. Central pelvic abscess: significant history of pelvic cancer: Bladder tumor most likely urachal carcinoma; s/p ir drain, mucinous fluid: danika; s/p Transurethral resection of bladder tumors -per urology -danika growing: antifungals per ID 2. UTI: multiorganism pathogens -abx per sensitivity 3.Normocytic anemia: no acute bleed noted -monitor -transfuse as needed 4. Hypomagnesemia: normalized -replete and monitor 5. History of pelvic ca, brain tumor: concern for recurrence -as above -per onc 6. Hypokalemia: normalized 7. Hypernatremia: -judicious fluids 8. Loose stools: improved Patient seen and examined in collaboration with Dr. Jonatan De Los Santos. Thank you. Problems: Subjective 24 Hr Interval Summary Feels ok. s/p Transurethral resection of bladder tumors, with continuous bladder irrigation. No pain, fevers, chills, acute bleed, n/v/d/dysuria. Exam/Review of Systems Vital Signs Vitals Vital Signs Date Time Temp Pulse Resp B/P Pulse Ox O2 Delivery O2 Flow Rate FiO2 04/30/17 08:29 98.9 64 16 125/56 95 04/29/17 23:30 Room Air Intake and Output 04/29/17 04/29/17 04/30/17 15:00 23:00 07:00 Intake Total 295 ml 1440 ml 905 ml Output Total 2105 ml 500 ml Balance 295 ml -665 ml 405 ml Exam Free Text/Dictation Constitutional: alert, oriented, pleasant Psych: anxiety, no complaints Head: atraumatic, normocephalic Eyes: nl lids, nl sclera ENMT: mucosa pink and moist, nl nasal mucosa & septum Neck: non-tender, supple Respiratory: clear to auscultation, normal air movement Cardiovascular: regular rate and rhythm, No edema Gastrointestinal: mass (palpable mass in suprapubic region), soft, non tender, rotund : with 3way cath, clear output Musculoskeletal: nl extremities to inspection, nl gait and stance Extremities: normal pulses, No edema 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: nl mental status, nl speech, nl strength Lymph: No nl lymph nodes Results Result Diagram: 04/30/17 0609 04/30/17 0609 JENIFER CABAN NP Apr 30, 2017 12:32
--- NOTE | 2017-04-30 13:38 | PN ---
Date/Time of Note Date/Time of Note DATE: 04/30/17 TIME: 13:35 Assessment/Plan VTE Prophylaxis VTE Prophylaxis Intervention: SCD's Lines/Catheters IV [facility] Type (from [facility] Peripheral IV Urinary Cath still in place: Yes Reason Cath still needed: other (indicate) Assessment/Plan Chief Complaint/Hosp Course 1. Large diverticular abscess in the central pelvis. Possibly malignant. The patient being followed by general surgery, oncology and Urology. Status post CT -guided biopsy of the lesion. Status post transurethral resection of bladder tumors on 04/29/2017. 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 The patient needs partial cystectomy in addition to removal of pelvic tumor that is mostly outside of the bladder that would be done at a later date. 2. Seizure disorder. Continue anticonvulsants. 3. Rheumatoid arthritis. Continue current care. 4. Sjogren's syndrome. Continue current care. 5. History of brain tumor. Status post resection. 6. Normocytic, normochromic anemia. Most probably anemia chronic disease. Monitor H&H closely. 7. Systemic inflammatory response syndrome with underlying UTI. On antimicrobials as per infectious diseases. 8. Fluids, electrolytes, and nutrition. Soft diet. 9. DVT prophylaxis. Bilateral sequential compression devices. 10. Plan. Continue current management. Await further recommendations from consultants. The patient needs partial cystectomy in addition to removal of pelvic tumor that is mostly outside of the bladder that would be done at a later date. Replete magnesium. Case discussed with Dr. Villareal. Problems: Subjective 24 Hr Interval Summary Free Text/Dictation The patient is on continuous bladder irrigation. Exam/Review of Systems Vital Signs Vitals Vital Signs Date Time Temp Pulse Resp B/P Pulse Ox O2 Delivery O2 Flow Rate FiO2 04/30/17 08:29 98.9 64 16 125/56 95 04/29/17 23:30 Room Air Intake and Output 04/29/17 04/29/17 04/30/17 15:00 23:00 07:00 Intake Total 295 ml 1440 ml 905 ml Output Total 2105 ml 500 ml Balance 295 ml -665 ml 405 ml Exam General: Adequately build 56 year-old male lying in bed in no apparent distress. HEENT: Normocephalic, atraumatic. Eyes: Anicteric sclerae, conjunctivae clear. ENT: Nasal septum midline, oral mucosa moist. Neck supple, no JVD noticed. Respiratory: Bilaterally clear breath sounds. No use of accessory muscles of respiration. No adventitious breath sounds. Cardiovascular: S1, S2 heard. No murmurs or gallops. Abdomen: Soft, nontender, and nondistended. Bowel sounds positive in all 4 quadrants. Genitourinary: Deferred. Extremities: No cyanosis, no clubbing, no edema. Peripheral pulses palpable. Chronic deformities of bilateral metacarpal joints. Neurologic: Cranial nerves II through XII grossly intact. The patient is awake, alert, and oriented. Skin: Normal skin turgor. No skin rashes. Results Result Diagram: 04/30/17 0609 04/30/17 0609 Results 24 hrs Laboratory Tests Test 04/30/17 06:09 White Blood Count 6.9 Red Blood Count 3.33 L Hemoglobin 9.7 L Hematocrit 31.4 L Mean Corpuscular Volume 94.3 Mean Corpuscular Hemoglobin 29.1 Mean Corpuscular Hemoglobin Concent 30.9 L Red Cell Distribution Width 14.9 H Platelet Count 444 H Mean Platelet Volume 9.4 Neutrophils % 72.4 Lymphocytes % 16.4 Monocytes % 10.8 Eosinophils % 0.0 Basophils % 0.1 Nucleated Red Blood Cells % 0.0 Neutrophils # 5.0 Lymphocytes # 1.1 Monocytes # 0.7 Eosinophils # 0.0 Basophils # 0.0 Nucleated Red Blood Cells # 0.0 Sodium Level 148 H Potassium Level 3.6 Chloride Level 110 Carbon Dioxide Level 27 Anion Gap 15 Blood Urea Nitrogen < 2 L Creatinine 0.43 L Glucose Level 98 Calcium Level 8.5 Phosphorus Level 3.7 Magnesium Level 1.5 L Medications Medications Current Medications Dextrose/Sodium Chloride (D5-1/2ns) 1,000 ml @ 100 mls/hr Q10H IV Last administered on 04/30/17 12:10; Admin Dose 100 MLS/HR; Start 04/23/17 at 22:30 Ondansetron HCl (Zofran Inj) 4 mg Q6H PRN IV NAUSEA AND/OR VOMITING; Start 04/23 at 22:30 Morphine Sulfate 3 mg 3 mg Q4H PRN IV PAIN Last administered on 04/25/17 10:52 ; Admin Dose 3 MG; Start 04/23/17 at 22:30 Piperacillin Sod/ Tazobactam Sod (Zosyn 3.375gm/ 100 ml (Pmx)) 100 ml @ 200 mls /hr Q6 IVPB Last administered on 04/30/17 11:50; Admin Dose 200 MLS/HR; Start 04/24/17 at 00:00 Lorazepam (Ativan) 2 mg Q10MIN PRN IV seizure; Start 04/24/17 at 11:00 Methylprednisolone Sodium Succinate (Solu-Medrol) 20 mg DAILY IV Last administered on 04/30/17 08:55; Admin Dose 20 MG; Start 04/24/17 at 11:30 Folic Acid (Folic Acid) 1 mg DAILY PO Last administered on 04/30/17 08:54; Admin Dose 1 MG; Start 04/24/17 at 14:30 Multivitamins Therapeutic (Theragran) 1 tab DAILY PO Last administered on 08:53; Admin Dose 1 TAB; Start 04/24/17 at 14:30 Primidone (Mysoline) 250 mg TID PO Last administered on 04/30/17 12:10; Admin Dose 250 MG; Start 04/24/17 at 15:00 Sulfasalazine (Azulfidine) 500 mg QID PO Last administered on 04/30/17 12:10; Admin Dose 500 MG; Start 04/24/17 at 17:00 Atorvastatin Calcium (Lipitor) 20 mg DAILY@21 PO Last administered on 04/29/17 23:44; Admin Dose 20 MG; Start 04/24/17 at 21:00 Non-Formulary Medication 1 DOSE = 20 mcg/ 0.08ml DAILY SC Last administered on 04/30/17 08:57; Admin Dose 1 EA; Start 04/25/17 at 09:00 Fluconazole 100 mg 100 mg DAILY PO Last administered on 04/30/17 08:53; Admin Dose 100 MG; Start 04/30/17 at 09:00; Stop 05/04/17 at 08:59 Levetiracetam (Keppra 500 Mg/ 100ml (Pmx)) 100 ml @ 400 mls/hr Q12 IVPB ; Start 04/30/17 at 21:00 LATASHA RICHARDSON NP Apr 30, 2017 13:38
[2017-04-30] MEDS ORDERED: MAGNESIUM SULFATE 2 GM/50 ML 50 ML IVPB ONE (14:30)
[2017-04-30 16:08] VITALS: BP 110/55; RESP 16
--- NOTE | 2017-04-30 18:49 | PN ---
Date/Time of Note Date/Time of Note DATE: 04/30/17 TIME: 18:42 Assessment/Plan VTE Prophylaxis VTE Prophylaxis Intervention: SCD's Lines/Catheters IV Catheter Type (from [facility]): Peripheral IV Urinary Cath still in place: Yes Reason Cath still needed: other (indicate) (Urological surgery, continuous bladder irrigation) Assessment/Plan Chief Complaint/Hosp Course Pelvic tumor, recurrent in the same location as the one she was operated on in 2011. Patient is status post transurethral resection of the bladder tumor. The pathology report is still pending. We will continue the bladder irrigation overnight and stop it at 6:00 in the morning. Then we may discontinue the Stubbs catheter and once we have the pathology report we will discuss the next step which basically should be excision removal of the pelvic tumors as well as partial cystectomy and that this procedure will be done by general surgery and urology as cosurgeons then the decision will be made whether she will undergo further treatment with radiation and/or chemotherapy Problems: Subjective 24 Hr Interval Summary Free Text/Dictation Patient is status post cystoscopy transurethral resection of bladder tumor and evacuation of mucus from the bladder. The patient stated that she is feeling better and she is comfortable, she has no pain Constitutional: no complaints Eyes: no complaints ENT: no complaints Respiratory: no complaints Cardiovascular: No chest pain Gastrointestinal: no complaints Genitourinary: other (Patient has a three-way Stubbs catheter was continuous bladder irrigation) Musculoskeletal: back pain Skin: no complaints Neurologic: no complaints Exam/Review of Systems Vital Signs Vitals Vital Signs Date Time Temp Pulse Resp B/P Pulse Ox O2 Delivery O2 Flow Rate FiO2 04/30/17 16:08 98.9 82 16 110/55 95 04/29/17 23:30 Room Air Intake and Output 04/29/17 04/29/17 04/30/17 15:00 23:00 07:00 Intake Total 295 ml 1440 ml 905 ml Output Total 2105 ml 500 ml Balance 295 ml -665 ml 405 ml Exam Constitutional: alert, oriented Psych: no complaints Head: normocephalic Eyes: nl conjunctiva ENMT: nl external ears & nose Neck: supple Cardiovascular: nl pulses Gastrointestinal: soft Genitourinary - Female: other (Three-way Stubbs catheter is draining well with a continuous bladder irrigation was normal saline is coming out of the Stubbs water clear) Musculoskeletal: nl extremities to inspection Extremities: No cyanosis, No edema Skin: nl turgor Results The pathology report is still pending however the appearance and the location of the tumor clinically is consistent with the diagnosis of urachal carcinoma Result Diagram: 04/30/17 0609 04/30/17 0609 Results 24 hrs Laboratory Tests Test 04/30/17 06:09 White Blood Count 6.9 Red Blood Count 3.33 L Hemoglobin 9.7 L Hematocrit 31.4 L Mean Corpuscular Volume 94.3 Mean Corpuscular Hemoglobin 29.1 Mean Corpuscular Hemoglobin Concent 30.9 L Red Cell Distribution Width 14.9 H Platelet Count 444 H Mean Platelet Volume 9.4 Neutrophils % 72.4 Lymphocytes % 16.4 Monocytes % 10.8 Eosinophils % 0.0 Basophils % 0.1 Nucleated Red Blood Cells % 0.0 Neutrophils # 5.0 Lymphocytes # 1.1 Monocytes # 0.7 Eosinophils # 0.0 Basophils # 0.0 Nucleated Red Blood Cells # 0.0 Sodium Level 148 H Potassium Level 3.6 Chloride Level 110 Carbon Dioxide Level 27 Anion Gap 15 Blood Urea Nitrogen < 2 L Creatinine 0.43 L Glucose Level 98 Calcium Level 8.5 Phosphorus Level 3.7 Magnesium Level 1.5 L Medications Medications Current Medications Dextrose/Sodium Chloride (D5-1/2ns) 1,000 ml @ 100 mls/hr Q10H IV Last administered on 04/30/17 12:10; Admin Dose 100 MLS/HR; Start 04/23/17 at 22:30 Ondansetron HCl (Zofran Inj) 4 mg Q6H PRN IV NAUSEA AND/OR VOMITING; Start 04/23 at 22:30 Morphine Sulfate 3 mg 3 mg Q4H PRN IV PAIN Last administered on 04/25/17 10:52 ; Admin Dose 3 MG; Start 04/23/17 at 22:30 Piperacillin Sod/ Tazobactam Sod (Zosyn 3.375gm/ 100 ml (Pmx)) 100 ml @ 200 mls /hr Q6 IVPB Last administered on 04/30/17 17:51; Admin Dose 200 MLS/HR; Start 04/24/17 at 00:00 Lorazepam (Ativan) 2 mg Q10MIN PRN IV seizure; Start 04/24/17 at 11:00 Methylprednisolone Sodium Succinate (Solu-Medrol) 20 mg DAILY IV Last administered on 04/30/17 08:55; Admin Dose 20 MG; Start 04/24/17 at 11:30 Folic Acid (Folic Acid) 1 mg DAILY PO Last administered on 04/30/17 08:54; Admin Dose 1 MG; Start 04/24/17 at 14:30 Multivitamins Therapeutic (Theragran) 1 tab DAILY PO Last administered on 08:53; Admin Dose 1 TAB; Start 04/24/17 at 14:30 Primidone (Mysoline) 250 mg TID PO Last administered on 04/30/17 12:10; Admin Dose 250 MG; Start 04/24/17 at 15:00 Sulfasalazine (Azulfidine) 500 mg QID PO Last administered on 04/30/17 17:51; Admin Dose 500 MG; Start 04/24/17 at 17:00 Atorvastatin Calcium (Lipitor) 20 mg DAILY@21 PO Last administered on 04/29/17 23:44; Admin Dose 20 MG; Start 04/24/17 at 21:00 Non-Formulary Medication 1 DOSE = 20 mcg/ 0.08ml DAILY SC Last administered on 04/30/17 08:57; Admin Dose 1 EA; Start 04/25/17 at 09:00 Fluconazole 100 mg 100 mg DAILY PO Last administered on 04/30/17 08:53; Admin Dose 100 MG; Start 04/30/17 at 09:00; Stop 05/04/17 at 08:59 Levetiracetam (Keppra 500 Mg/ 100ml (Pmx)) 100 ml @ 400 mls/hr Q12 IVPB ; Start 04/30/17 at 21:00 TRESSA SIMMONS MD Apr 30, 2017 18:49
--- NOTE | 2017-04-30 18:53 | CONS ---
Date/Time of Note Date/Time of Note DATE: 04/30/17 TIME: 18:50 Assessment/Plan Assessment/Plan Chief Complaint/Hosp Course ID PROGRESS NOTE CURRENT ABX: Zosyn #7 + Diflucan #2 s/p Ertapenem x1 04/23 1600 24 HOUR INTERVAL SUMMARY * A/A/O -> resting,no fevers, VSS * Pt is growing C.Albicans from IR drainage collection + Urine Cx + Cystoscopy Cx * s/p 04/28/17: IR drainage of mucinous of pelvic fluid collection->significant history of pelvic cancer; concern for malignancy, no symptoms of infection; * 04/28/17 Drainage WOUND CULTURE Preliminary Organism 1 KAILEY ALBICANS QUANTITY 1+ URINE CULTURE Preliminary Organism 1 KAILEY ALBICANS COLONY COUNT 20,000 - 30,000 CFU/ml * CA 19-9 WNL * Initial dubious etiology of pelvic mass DDx sigmoid abscess vs recurrent carcinoma => now less likely abscess, more likely may require surgical removal Exam Constitutional: alert, oriented, well developed Head: atraumatic, normocephalic Eyes: EOMI, PERRL Respiratory: clear to auscultation, normal air movement Cardiovascular: nl pulses, regular rate and rhythm Gastrointestinal: Soft, (+)tender LLQ, (+)BS Extremities: normal pulses 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: nl mental status, nl speech, nl strength ID ASSESSMENT 56 yo obese Vietnamese speaking F admit with: 1. SIRS w/increased Neuts% = left shift on WBC, no fevers, VSS 2. Acute large diverticular abscess in the central pelvis, measuring approximately 11 cm in maximal dimension. * DDx infected pelvic mass pelvic cancer=> Hx of of carcinoma ->s/p hysterectomy , oophorectomy, and omentectomy. * Hx of mucinous adenocarcinoma pelvic tumor=> Per GI she has had a 10-15# weight loss in 3 weeks? 3. UTI per UA 3+ Leuk-Esterase, >182 pyuria, 9RBC ->Micro (+)Yeast * URINE CULTURE Preliminary Organism 1 KAILEY ALBICANS COLONY COUNT 50,000 - 60,000 CFU/ml 4. Nonobstructive left renal calculus is noted, without ureterolithiasis or obstructive uropathy=> PER CT 5. Bowel containing lower abdominal ventral hernia is noted, without obstruction or incarceration=> PER CT 6. PSHx: s/p Cholecystectomy (2013) /Hysterectomy(2011) / Head surgery "mass"( 1996) 7. Osteoporosis 8. Osteoarthritis 9. Rheumatoid arthritis CURRENT ABX: Zosyn #7 + Diflucan #2 s/p Ertapenem x1 04/23 1600 ID RECOMMENDATIONS 1. Continue Zosyn-> await final micro -- likely DC ABX if micro final is negative . . . Problems: Consultation Date/Type/Reason Admit Date/Time Apr 23, 2017 at 20:40 Initial Consult Date 04/24/17 Type of Consultation: ID Referring Provider: SHARON GIRALDO MD Exam/Review of Systems Vital Signs Vitals Vital Signs Date Time Temp Pulse Resp B/P Pulse Ox O2 Delivery O2 Flow Rate FiO2 04/30/17 16:08 98.9 82 16 110/55 95 04/29/17 23:30 Room Air Intake and Output 04/29/17 04/29/17 04/30/17 15:00 23:00 07:00 Intake Total 295 ml 1440 ml 905 ml Output Total 2105 ml 500 ml Balance 295 ml -665 ml 405 ml Results Result Diagram: 04/30/17 0609 04/30/17 0609 Results 24 hrs Laboratory Tests Test 04/30/17 06:09 White Blood Count 6.9 Red Blood Count 3.33 L Hemoglobin 9.7 L Hematocrit 31.4 L Mean Corpuscular Volume 94.3 Mean Corpuscular Hemoglobin 29.1 Mean Corpuscular Hemoglobin Concent 30.9 L Red Cell Distribution Width 14.9 H Platelet Count 444 H Mean Platelet Volume 9.4 Neutrophils % 72.4 Lymphocytes % 16.4 Monocytes % 10.8 Eosinophils % 0.0 Basophils % 0.1 Nucleated Red Blood Cells % 0.0 Neutrophils # 5.0 Lymphocytes # 1.1 Monocytes # 0.7 Eosinophils # 0.0 Basophils # 0.0 Nucleated Red Blood Cells # 0.0 Sodium Level 148 H Potassium Level 3.6 Chloride Level 110 Carbon Dioxide Level 27 Anion Gap 15 Blood Urea Nitrogen < 2 L Creatinine 0.43 L Glucose Level 98 Calcium Level 8.5 Phosphorus Level 3.7 Magnesium Level 1.5 L Medications Medications Current Medications Dextrose/Sodium Chloride (D5-1/2ns) 1,000 ml @ 100 mls/hr Q10H IV Last administered on 04/30/17t 12:10; Admin Dose 100 MLS/HR; Start 04/23/17 at 22:30 Ondansetron HCl (Zofran Inj) 4 mg Q6H PRN IV NAUSEA AND/OR VOMITING; Start 04/23 at 22:30 Morphine Sulfate 3 mg 3 mg Q4H PRN IV PAIN Last administered on 04/25/17 10:52 ; Admin Dose 3 MG; Start 04/23/17 at 22:30 Piperacillin Sod/ Tazobactam Sod (Zosyn 3.375gm/ 100 ml (Pmx)) 100 ml @ 200 mls /hr Q6 IVPB Last administered on 04/30/17 17:51; Admin Dose 200 MLS/HR; Start 04/24/17 at 00:00 Lorazepam (Ativan) 2 mg Q10MIN PRN IV seizure; Start 04/24/17 at 11:00 Methylprednisolone Sodium Succinate (Solu-Medrol) 20 mg DAILY IV Last administered on 04/30/17 08:55; Admin Dose 20 MG; Start 04/24/17 at 11:30 Folic Acid (Folic Acid) 1 mg DAILY PO Last administered on 04/30/17 08:54; Admin Dose 1 MG; Start 04/24/17 at 14:30 Multivitamins Therapeutic (Theragran) 1 tab DAILY PO Last administered on 08:53; Admin Dose 1 TAB; Start 04/24/17 at 14:30 Primidone (Mysoline) 250 mg TID PO Last administered on 04/30/17 12:10; Admin Dose 250 MG; Start 04/24/17 at 15:00 Sulfasalazine (Azulfidine) 500 mg QID PO Last administered on 04/30/17 17:51; Admin Dose 500 MG; Start 04/24/17 at 17:00 Atorvastatin Calcium (Lipitor) 20 mg DAILY@21 PO Last administered on 04/29/17 23:44; Admin Dose 20 MG; Start 04/24/17 at 21:00 Non-Formulary Medication 1 DOSE = 20 mcg/ 0.08ml DAILY SC Last administered on 04/30/17 08:57; Admin Dose 1 EA; Start 04/25/17 at 09:00 Fluconazole 100 mg 100 mg DAILY PO Last administered on 04/30/17 08:53; Admin Dose 100 MG; Start 04/30/17 at 09:00; Stop 05/04/17 at 08:59 Levetiracetam (Keppra 500 Mg/ 100ml (Pmx)) 100 ml @ 400 mls/hr Q12 IVPB ; Start 04/30/17 at 21:00 THELMA FULTON NP Apr 30, 2017 18:53
[2017-04-30 21:16] VITALS: BP 118/59; RESP 18
[2017-04-30] MEDS: LEVETIRACETAM 500 MG (PMX) 100 ML IVPB SCH (21:32)
[2017-04-30] MEDS: ATORVASTATIN 20 MG TAB PO SCH (21:32)
--- NOTE | 2017-04-30 22:46 | PN ---
DATE: 04/30/2017 Medical Oncology progress note SUBJECTIVE: Patient has no complaints at this time. She has undergone cystoscopy, is not experiencing any lower abdominal pain. She has had no fevers or shaking chills. OBJECTIVE DATA: GENERAL: The patient is a well-developed, well-nourished female who is in no acute distress. VITAL SIGNS: Temperature 98.9, pulse 82 per minute and regular, respirations 16, blood pressure 110/55, pulse oximetry 95 percent on room air. SKIN: No ecchymosis, no petechiae or rashes. HEENT: Normocephalic. No evidence of trauma. The pupils equal, round, react light and accommodation. Sclerae nonicteric. Oral mucosa is moist without lesions. Tongue is well papillated. No gingival hyperplasia. No hypertrophy of Waldeyer's ring. NECK: Neck is supple. No jugular distention, or thyroid enlargement. No carotid bruits. CHEST: Chest is clear to auscultation and percussion. There are no rhonchi, wheezes, or rales or rubs. HEART: Heart regular sinus rhythm. No S3, S4, murmurs, no rubs. NODES: No palpable lymphadenopathy in any lymph node bearing area. ABDOMEN: Abdomen is mildly distended. Soft. There is ventral wall hernia. No obvious masses, but there is fullness in the lower abdomen. GENITOURINARY: There is a Stubbs catheter in place and there is continuous bladder irrigation going draining clear fluid. EXTREMITIES: Good range of motion. No clubbing. No edema or cyanosis. There are the changes consistent with the patient's rheumatoid arthritis. NEUROLOGIC: Neurologic is normal. LABORATORY AND DIAGNOSTIC DATA: White count today is 6,900, with 72 percent neutrophils and 16 percent lymphocytes, hemoglobin 9.7, hematocrit 31.4, and platelet count 444,000. Sodium 148, potassium 3.6, BUN is less than 2, and creatinine is 0.43. ASSESSMENT AND PLAN: 1. 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 2. Rheumatoid arthritis. 3. Sjogren syndrome. The patient has undergone the cystoscopy performed by Dr. Crawley earlier today. This did in fact demonstrate that the bladder was full of mucus and after irrigation, the tumor was located in the anterior bladder at the dome, most consistent with a urachal tumor. Dr. Crawley did do a partial resection of the tumor. I have discussed the situation with the patient and her daughter. I have again reinforced the fact that this appears to be a urachal tumor. This the same process that led to the surgery in 2011. I explained again that this is an embryologic remnant. Treatment will require surgery with excision of the pelvic mass as well as a partial cystectomy to remove the primary tumor site. The patient is being seen also by Dr. De Los Santos. Arrangements for this surgery will be somewhat complicated. I have also discussed the fact that this tumor is not responsive to either radiation or chemotherapy. Dictated By: Titi Eid MD /[email or web address]/erin /Document#: [id number]
[2017-05-01] MEDS: PIPER-TAZO 3.375 GM IV (PMX) 100 ML IVPB SCH ×4 (00:05→17:41)
[2017-05-01] MEDS: DEXTROSE 5%-0.45% NACL 1,000 ML IV SCH ×4 (00:10→17:42)
[2017-05-01 03:01] VITALS: BP 114/68; RESP 18
[2017-05-01 06:19] LABS: BASOPHILS % 0.5 % (0.0-2.0); EOSINOPHILS # 0.1 10^3/ul (0.0-0.5); EOSINOPHILS % 2.3 % (0.0-7.0); HEMATOCRIT 30.5 % (37.0-47.0); HEMOGLOBIN 9.5 g/dl (12.0-16.0); LYMPHOCYTES # 1.3 10^3/ul (0.8-2.9); LYMPHOCYTES % 22.5 % (15.0-51.0); MEAN CORPUSCULAR HEMOGLOBIN 29.2 pg (29.0-33.0); MEAN CORPUSCULAR HGB CONC 31.1 g/dl (32.0-37.0); MEAN CORPUSCULAR VOLUME 93.8 fl (82.0-101.0); MEAN PLATELET VOLUME 9.4 fl (7.4-10.4); MONOCYTE # 0.7 10^3/ul (0.3-0.9); MONOCYTES % 12.2 % (0.0-11.0); NEUTROPHIL # 3.5 10^3/ul (1.6-7.5); NEUTROPHILS % 62.3 % (39.0-77.0); PLATELET COUNT 408 10^3/UL (140-415); RED BLOOD COUNT 3.25 10^6/ul (4.20-5.40); RED CELL DISTRIBUTION WIDTH 14.9 % (11.5-14.5); WHITE BLOOD COUNT 5.6 10^3/ul (4.8-10.8)
[2017-05-01 06:51] LABS: MAGNESIUM 1.9 mg/dl (1.7-2.5); PHOSPHORUS 2.9 mg/dl (2.5-4.9)
[2017-05-01 07:00] LABS: CALCIUM 8.6 mg/dl (8.4-10.2); CREATININE 0.37 mg/dl (0.44-1.00); POTASSIUM 3.8 mmol/L (3.5-5.1)
[2017-05-01] MEDS: LEVETIRACETAM 500 MG (PMX) 100 ML IVPB SCH ×2 (09:22→20:29)
[2017-05-01] MEDS: METHYLPREDNISOLONE 40 MG INJ IV SCH (09:23)
[2017-05-01] MEDS: FLUCONAZOLE 100 MG TAB PO SCH (09:25)
[2017-05-01] MEDS: MULTIVITAMINS THERAPEUTIC TAB PO SCH (09:25)
[2017-05-01] MEDS: SULFASALAZINE 500 MG TAB PO SCH ×4 (09:25→20:29)
[2017-05-01] MEDS: FOLIC ACID 1 MG TAB PO SCH (09:25)
[2017-05-01] MEDS: PRIMIDONE 250 MG TAB PO SCH ×3 (09:25→20:29)
[2017-05-01] MEDS: TERIPARATIDE 600 MCG/2.4 ML SC SCH (09:50)
--- NOTE | 2017-05-01 11:00 | PN ---
DATE: 05/01/2017 SUBJECTIVE: Patient states she is feeling well. She has no new complaints at this time. Continuous bladder irrigation continues, but the patient is not complaining of any pain related to this. OBJECTIVE: GENERAL: The patient is a well-developed, well-nourished female, in no acute distress. VITAL SIGNS: Temperature 97.6, pulse 72, respirations 18, blood pressure 114/68, pulse oximetry of 67 percent on room air. Remainder of examination is unchanged. ABDOMEN: The patient does have some mild abdominal distention. The 3-way Stubbs catheter is in place and continuous bladder irrigation is ongoing. EXTREMITIES: Sill show the changes related to her rheumatoid arthritis. LABORATORY AND DIAGNOSTIC DATA: Biopsy of the bladder tumor taken at the time of cystoscopy does show a mucin-producing low- grade adenocarcinoma. ASSESSMENT AND PLAN: 1. Pelvic mass and bladder tumor. Biopsy demonstrated a low- grade adenocarcinoma, mucin-producing. 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 2. Rheumatoid arthritis. 3. Sjogren's syndrome. Awaiting further decision regarding surgical procedure to resect the tumor. This will necessarily include a partial cystectomy. Dictated By: Titi Eid MD /fnkj/ec /Document#: [id number]
[2017-05-01] MEDS ORDERED: SOD CHLORIDE 0.9% 100 ML ONE (11:27)
[2017-05-01] MEDS ORDERED: IOHEXOL 300MG/ML 150 ML BTL ONE (11:27)
--- NOTE | 2017-05-01 12:17 | PN ---
Date/Time of Note Date/Time of Note DATE: 05/01/17 TIME: 12:08 Assessment/Plan Lines/Catheters IV Catheter Type (from [email or web address] Peripheral IV Stubbs in Place (from [facility] [[email or web address] Yes Assessment/Plan Chief Complaint/Hosp Course 1. Central pelvic abscess: significant history of pelvic cancer: Bladder tumor most likely urachal carcinoma; s/p ir drain, mucinous fluid: danika; s/p Transurethral resection of bladder tumor -Eventual tumor removal with cystectomy -follow path -danika growing: antifungals per ID 2. UTI: multiorganism pathogens -abx per sensitivity 3.Normocytic anemia: no acute bleed noted -monitor -transfuse as needed 4. History of pelvic ca, brain tumor: concern for recurrence -as above -per onc -CT chest today 6. Hypernatremia: normalized Patient seen and examined in collaboration with Dr. Joantan De Los Santos. Thank you. Problems: Subjective 24 Hr Interval Summary Feels well. No c/o pain/discomfort to pelvic area. s/p continuous bladder irrigation. No fevers, chills, dysuria, cp, palpitations, n/v/d, sz, rash. Exam/Review of Systems Vital Signs Vitals Vital Signs Date Time Temp Pulse Resp B/P Pulse Ox O2 Delivery O2 Flow Rate FiO2 05/01/17 03:01 97.6 72 18 114/68 97 04/29/17 23:30 Room Air Intake and Output 04/30/17 04/30/17 05/01/17 15:00 23:00 07:00 Intake Total 705 ml 1480 ml 1400 ml Output Total 1200 ml Balance 705 ml 280 ml 1400 ml Exam Free Text/Dictation Constitutional: alert, oriented, pleasant Psych: anxiety, no complaints Head: atraumatic, normocephalic Eyes: nl lids, nl sclera ENMT: mucosa pink and moist, nl nasal mucosa & septum Neck: non-tender, supple Respiratory: clear to auscultation, normal air movement Cardiovascular: regular rate and rhythm, No edema Gastrointestinal: mass (palpable mass in suprapubic region), soft, non tender, rotund, bowel sounds x4 quads : with 3way cath, clear output Musculoskeletal: nl extremities to inspection, nl gait and stance Extremities: normal pulses, No edema 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: nl mental status, nl speech, nl strength Lymph: No nl lymph nodes Results Result Diagram: 05/01/17 0553 05/01/17 0553 JENIFER CABAN NP May 01, 2017 12:17
--- NOTE | 2017-05-01 14:16 | PN ---
Date/Time of Note Date/Time of Note DATE: 05/01/17 TIME: 14:11 Assessment/Plan VTE Prophylaxis VTE Prophylaxis Intervention: SCD's Lines/Catheters IV [facility] Peripheral IV Urinary Cath still in place: No Assessment/Plan Chief Complaint/Hosp Course Pelvic tumor, recurrent in the same location as the one she was operated on in 2011. Patient is status post transurethral resection of the bladder tumor. The pathology report is still pending. Partida to be removed.Surgery to be planned after the pathology report is back Problems: Subjective 24 Hr Interval Summary Constitutional: no complaints Eyes: no complaints ENT: no complaints Respiratory: no complaints Cardiovascular: No chest pain Gastrointestinal: pain Genitourinary: other (Partida catheter draining clear urine without the irrigation) Musculoskeletal: no complaints Skin: no complaints Neurologic: no complaints Endocrine: no complaints Exam/Review of Systems Vital Signs Vitals Vital Signs Date Time Temp Pulse Resp B/P Pulse Ox O2 Delivery O2 Flow Rate FiO2 05/01/17 03:01 97.6 72 18 114/68 97 04/29/17 23:30 Room Air Intake and Output 04/30/17 04/30/17 05/01/17 15:00 23:00 07:00 Intake Total 705 ml 1480 ml 1400 ml Output Total 1200 ml Balance 705 ml 280 ml 1400 ml Exam Constitutional: alert, oriented Psych: no complaints Head: normocephalic Eyes: nl conjunctiva ENMT: nl external ears & nose Neck: supple Respiratory: normal air movement Cardiovascular: nl pulses Gastrointestinal: soft, surgical scars Genitourinary - Female: other (partida catheter in place ,draining well,clear urine), No CVA tenderness Musculoskeletal: nl extremities to inspection Extremities: No calf tenderness, No edema Results Result Diagram: 05/01/17 0553 05/01/17 0553 Results 24 hrs Laboratory Tests Test 05/01/17 05:53 White Blood Count 5.6 Red Blood Count 3.25 L Hemoglobin 9.5 L Hematocrit 30.5 L Mean Corpuscular Volume 93.8 Mean Corpuscular Hemoglobin 29.2 Mean Corpuscular Hemoglobin Concent 31.1 L Red Cell Distribution Width 14.9 H Platelet Count 408 Mean Platelet Volume 9.4 Neutrophils % 62.3 Lymphocytes % 22.5 Monocytes % 12.2 H Eosinophils % 2.3 Basophils % 0.5 Nucleated Red Blood Cells % 0.0 Neutrophils # 3.5 Lymphocytes # 1.3 Monocytes # 0.7 Eosinophils # 0.1 Basophils # 0.0 Nucleated Red Blood Cells # 0.0 Sodium Level 146 H Potassium Level 3.8 Chloride Level 105 Carbon Dioxide Level 30 Anion Gap 15 Blood Urea Nitrogen 3 L Creatinine 0.37 L Glucose Level 113 Calcium Level 8.6 Phosphorus Level 2.9 Magnesium Level 1.9 Medications Medications Current Medications Dextrose/Sodium Chloride (D5-1/2ns) 1,000 ml @ 100 mls/hr Q10H IV Last administered on 05/01/17 12:49; Admin Dose 100 MLS/HR; Start 04/23/17 at 22:30 Ondansetron HCl (Zofran Inj) 4 mg Q6H PRN IV NAUSEA AND/OR VOMITING; Start 04/23 at 22:30 Morphine Sulfate 3 mg 3 mg Q4H PRN IV PAIN Last administered on 04/25/17 10:52 ; Admin Dose 3 MG; Start 04/23/17 at 22:30 Piperacillin Sod/ Tazobactam Sod (Zosyn 3.375gm/ 100 ml (Pmx)) 100 ml @ 200 mls /hr Q6 IVPB Last administered on 05/01/17 12:49; Admin Dose 200 MLS/HR; Start 04/24/17 at 00:00 Lorazepam (Ativan) 2 mg Q10MIN PRN IV seizure; Start 04/24/17 at 11:00 Methylprednisolone Sodium Succinate (Solu-Medrol) 20 mg DAILY IV Last administered on 05/01/17 09:23; Admin Dose 20 MG; Start 04/24/17 at 11:30 Folic Acid (Folic Acid) 1 mg DAILY PO Last administered on 05/01/17 09:25; Admin Dose 1 MG; Start 04/24/17 at 14:30 Multivitamins Therapeutic (Theragran) 1 tab DAILY PO Last administered on 09:25; Admin Dose 1 TAB; Start 04/24/17 at 14:30 Primidone (Mysoline) 250 mg TID PO Last administered on 05/01/17 12:49; Admin Dose 250 MG; Start 04/24/17 at 15:00 Sulfasalazine (Azulfidine) 500 mg QID PO Last administered on 05/01/17 12:49; Admin Dose 500 MG; Start 04/24/17 at 17:00 Atorvastatin Calcium (Lipitor) 20 mg DAILY@21 PO Last administered on 21:32; Admin Dose 20 MG; Start 04/24/17 at 21:00 Non-Formulary Medication 1 DOSE = 20 mcg/ 0.08ml DAILY SC Last administered on 05/01/17 09:50; Admin Dose 1 EA; Start 04/25/17 at 09:00 Fluconazole 100 mg 100 mg DAILY PO Last administered on 05/01/17 09:25; Admin Dose 100 MG; Start 04/30/17 at 09:00; Stop 05/04/17 at 08:59 Levetiracetam (Keppra 500 Mg/ 100ml (Pmx)) 100 ml @ 400 mls/hr Q12 IVPB Last administered on 05/01/17 09:22; Admin Dose 400 MLS/HR; Start 04/30/17 at 21:00 TRESSA SIMMONS MD May 01, 2017 14:16
--- NOTE | 2017-05-01 16:12 | PN ---
Date/Time of Note Date/Time of Note DATE: 05/01/17 TIME: 16:10 Assessment/Plan VTE Prophylaxis VTE Prophylaxis Intervention: SCD's Lines/Catheters IV Catheter Type (from [facility]): Peripheral IV Urinary Cath still in place: No Assessment/Plan Chief Complaint/Hosp Course 1. Large diverticular abscess in the central pelvis. Possibly malignant. The patient being followed by general surgery, oncology and Urology. Status post CT -guided biopsy of the lesion. Status post transurethral resection of bladder tumors on 04/29/2017. 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 The patient needs partial cystectomy in addition to removal of pelvic tumor that is mostly outside of the bladder that would be done at a later date. 2. Seizure disorder. Continue anticonvulsants. 3. Rheumatoid arthritis. Continue current care. 4. Sjogren's syndrome. Continue current care. 5. History of brain tumor. Status post resection. 6. Normocytic, normochromic anemia. Most probably anemia chronic disease. Monitor H&H closely. 7. Systemic inflammatory response syndrome with underlying UTI. On antimicrobials as per infectious diseases. 8. Fluids, electrolytes, and nutrition. Soft diet. 9. DVT prophylaxis. Bilateral sequential compression devices. 10. Plan. Continue current management. Await further recommendations from consultants. The patient needs partial cystectomy in addition to removal of pelvic tumor that is mostly outside of the bladder that would be done at a later date. Case discussed with Dr. Villareal. Problems: Subjective 24 Hr Interval Summary Free Text/Dictation The patient is off continuous bladder irrigation. Denies any pain. Exam/Review of Systems Vital Signs Vitals Vital Signs Date Time Temp Pulse Resp B/P Pulse Ox O2 Delivery O2 Flow Rate FiO2 05/01/17 03:01 97.6 72 18 114/68 97 04/29/17 23:30 Room Air Intake and Output 04/30/17 04/30/17 05/01/17 15:00 23:00 07:00 Intake Total 705 ml 1480 ml 1400 ml Output Total 1200 ml Balance 705 ml 280 ml 1400 ml Exam General: Adequately build 56 year-old male lying in bed in no apparent distress. HEENT: Normocephalic, atraumatic. Eyes: Anicteric sclerae, conjunctivae clear. ENT: Nasal septum midline, oral mucosa moist. Neck supple, no JVD noticed. Respiratory: Bilaterally clear breath sounds. No use of accessory muscles of respiration. No adventitious breath sounds. Cardiovascular: S1, S2 heard. No murmurs or gallops. Abdomen: Soft, nontender, and nondistended. Bowel sounds positive in all 4 quadrants. Genitourinary: Deferred. Extremities: No cyanosis, no clubbing, no edema. Peripheral pulses palpable. Chronic deformities of bilateral metacarpal joints. Neurologic: Cranial nerves II through XII grossly intact. The patient is awake, alert, and oriented. Skin: Normal skin turgor. No skin rashes. Results Result Diagram: 05/01/17 0553 05/01/17 0553 Results 24 hrs Laboratory Tests Test 05/01/17 05:53 White Blood Count 5.6 Red Blood Count 3.25 L Hemoglobin 9.5 L Hematocrit 30.5 L Mean Corpuscular Volume 93.8 Mean Corpuscular Hemoglobin 29.2 Mean Corpuscular Hemoglobin Concent 31.1 L Red Cell Distribution Width 14.9 H Platelet Count 408 Mean Platelet Volume 9.4 Neutrophils % 62.3 Lymphocytes % 22.5 Monocytes % 12.2 H Eosinophils % 2.3 Basophils % 0.5 Nucleated Red Blood Cells % 0.0 Neutrophils # 3.5 Lymphocytes # 1.3 Monocytes # 0.7 Eosinophils # 0.1 Basophils # 0.0 Nucleated Red Blood Cells # 0.0 Sodium Level 146 H Potassium Level 3.8 Chloride Level 105 Carbon Dioxide Level 30 Anion Gap 15 Blood Urea Nitrogen 3 L Creatinine 0.37 L Glucose Level 113 Calcium Level 8.6 Phosphorus Level 2.9 Magnesium Level 1.9 Medications Medications Current Medications Dextrose/Sodium Chloride (D5-1/2ns) 1,000 ml @ 100 mls/hr Q10H IV Last administered on 05/01/17 12:49; Admin Dose 100 MLS/HR; Start 04/23/17 at 22:30 Ondansetron HCl (Zofran Inj) 4 mg Q6H PRN IV NAUSEA AND/OR VOMITING; Start 04/23 at 22:30 Morphine Sulfate 3 mg 3 mg Q4H PRN IV PAIN Last administered on 04/25/17 10:52 ; Admin Dose 3 MG; Start 04/23/17 at 22:30 Piperacillin Sod/ Tazobactam Sod (Zosyn 3.375gm/ 100 ml (Pmx)) 100 ml @ 200 mls /hr Q6 IVPB Last administered on 05/01/17 12:49; Admin Dose 200 MLS/HR; Start 04/24/17 at 00:00 Lorazepam (Ativan) 2 mg Q10MIN PRN IV seizure; Start 04/24/17 at 11:00 Methylprednisolone Sodium Succinate (Solu-Medrol) 20 mg DAILY IV Last administered on 05/01/17 09:23; Admin Dose 20 MG; Start 04/24/17 at 11:30 Folic Acid (Folic Acid) 1 mg DAILY PO Last administered on 05/01/17 09:25; Admin Dose 1 MG; Start 04/24/17 at 14:30 Multivitamins Therapeutic (Theragran) 1 tab DAILY PO Last administered on 09:25; Admin Dose 1 TAB; Start 04/24/17 at 14:30 Primidone (Mysoline) 250 mg TID PO Last administered on 05/01/17 12:49; Admin Dose 250 MG; Start 04/24/17 at 15:00 Sulfasalazine (Azulfidine) 500 mg QID PO Last administered on 05/01/17 12:49; Admin Dose 500 MG; Start 04/24/17 at 17:00 Atorvastatin Calcium (Lipitor) 20 mg DAILY@21 PO Last administered on 21:32; Admin Dose 20 MG; Start 04/24/17 at 21:00 Non-Formulary Medication 1 DOSE = 20 mcg/ 0.08ml DAILY SC Last administered on 05/01/17 09:50; Admin Dose 1 EA; Start 04/25/17 at 09:00 Fluconazole 100 mg 100 mg DAILY PO Last administered on 05/01/17 09:25; Admin Dose 100 MG; Start 04/30/17 at 09:00; Stop 05/04/17 at 08:59 Levetiracetam (Keppra 500 Mg/ 100ml (Pmx)) 100 ml @ 400 mls/hr Q12 IVPB Last administered on 05/01/17 09:22; Admin Dose 400 MLS/HR; Start 04/30/17 at 21:00 LATASHA RICHARDSON NP May 01, 2017 16:12
--- NOTE | 2017-05-01 17:43 | RADRPT ---
PROCEDURE: CT Chest with contrast. CLINICAL INDICATION: Pelvic mass. Evaluate for metastatic disease. TECHNIQUE: CT scan of the chest with contrast was performed following the uncomplicated intravenou s administration of 90 cc of Omnipaque-300. Coronal and sagittal reformatted images were obtained f rom the axial source images. Images were reviewed on a high-resolution PACS workstation. CTDIvol (mG y): 15.34; Total Exam DLP (mGy-cm): 570.79. One or more of the following dose reduction techniques were utilized: - Automated exposure control. - Adjustment of the mA and/or kV according to patient size. - Use of iterative reconstruction technique. COMPARISON: CT abdomen/pelvis 04/23/2017. CTA chest 05/21/2015. FINDINGS: Limited imaging of the lower neck demonstrates a small cystic nodule of the right lobe, which is vandana ssly unchanged in size. The heart is not enlarged. There is no pericardial effusion. There is no mediastinal, hilar or axi llary lymphadenopathy. The thoracic aorta is normal in caliber. The pulmonary arteries are mildly enlarged. Low lung volumes are observed. Scattered basilar atelectatic changes are present. There is no pulm onary consolidation or pleural effusion. There is a tiny 4 mm nodule of the left lung base, which i s unchanged. The tracheobronchial tree is normal in caliber with mild diffuse bronchial wall thicke marshall. Limited imaging of the upper abdomen demonstrates evidence of cholecystectomy. 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 Mild hydronephrosis is observed. There is no perinephric edema or perinephric fluid collection. A mild old T5 compression fracture is unchanged. Similar compression deformities of the lower thora cic spine vertebral bodies are present and unchanged. Body wall soft tissues are unremarkable. IMPRESSION: Low lung volumes with mild scattered basilar atelectatic changes. Stable tiny left lower lobe pulmonary nodule. No evidence of new or concerning pulmonary nodule. N o evidence of pulmonary metastases. Small cystic nodule of the right lobe, grossly unchanged. 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 RPTAT: HLST .Betzy Godoy MD, MD Date Time Electronically viewed and signed by .Betzy Godoy MD, on 05/01/2017 17:43 .T/
[2017-05-01 19:40] VITALS: BP 128/75; RESP 20
[2017-05-01] MEDS: ATORVASTATIN 20 MG TAB PO SCH (20:29)
--- NOTE | 2017-05-01 22:57 | CONS ---
Date/Time of Note Date/Time of Note DATE: 05/01/17 TIME: 22:53 Assessment/Plan Assessment/Plan Chief Complaint/Hosp Course ID PROGRESS NOTE CURRENT ABX: Diflucan #3 Zosyn #8 +-> DC 05/01 s/p Ertapenem x1 04/23 1600 24 HOUR INTERVAL SUMMARY * The patient is sleeping, no fevers, VSS, NAD -- not disturbed * Pt is growing C.Albicans from IR drainage collection + Urine Cx + Cystoscopy Cx * s/p 04/28/17: IR drainage of mucinous of pelvic fluid collection->significant history of pelvic cancer; concern for malignancy, no symptoms of infection; * 04/28/17 Drainage WOUND CULTURE Preliminary Organism 1 KAILEY ALBICANS QUANTITY 1+ URINE CULTURE Preliminary Organism 1 KAILEY ALBICANS COLONY COUNT 20,000 - 30,000 CFU/ml * CA 19-9 WNL * Initial dubious etiology of pelvic mass DDx sigmoid abscess vs recurrent carcinoma => now less likely abscess, more likely may require surgical removal Exam Constitutional: alert, oriented, well developed Head: atraumatic, normocephalic Eyes: EOMI, PERRL Respiratory: clear to auscultation, normal air movement Cardiovascular: nl pulses, regular rate and rhythm Gastrointestinal: Soft, (+)tender LLQ, (+)BS Extremities: normal pulses 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: nl mental status, nl speech, nl strength ID ASSESSMENT 56 yo obese Citizen Of [place] speaking F admit with: 1. SIRS w/increased Neuts% = left shift on WBC, no fevers, VSS 2. Acute large diverticular abscess in the central pelvis, measuring approximately 11 cm in maximal dimension. * DDx infected pelvic mass pelvic cancer=> Hx of of carcinoma ->s/p hysterectomy , oophorectomy, and omentectomy. * Hx of mucinous adenocarcinoma pelvic tumor=> Per GI she has had a 10-15# weight loss in 3 weeks? 3. UTI per UA 3+ Leuk-Esterase, >182 pyuria, 9RBC ->Micro (+)Yeast * URINE CULTURE Preliminary Organism 1 KAILEY ALBICANS COLONY COUNT 50,000 - 60,000 CFU/ml 4. Nonobstructive left renal calculus is noted, without ureterolithiasis or obstructive uropathy=> PER CT 5. Bowel containing lower abdominal ventral hernia is noted, without obstruction or incarceration=> PER CT 6. PSHx: s/p Cholecystectomy (2013) /Hysterectomy(2011) / Head surgery "mass"( 1996) 7. Osteoporosis 8. Osteoarthritis 9. Rheumatoid arthritis CURRENT ABX: Diflucan #3 Zosyn #8 +-> DC 05/01 s/p Ertapenem x1 04/23 1600 ID RECOMMENDATIONS 1. DC Zosyn -- Continue Diflucan for disseminated candidiasis ABD pelvic drainage fluid, Urine Cx, (+)Cystoscopy 2. Further recs per consultants . . . . Problems: Consultation Date/Type/Reason Admit Date/Time Apr 23, 2017 at 20:40 Initial Consult Date 04/24/17 Type of Consultation: ID Referring Provider: SHARON GIRALDO MD Exam/Review of Systems Vital Signs Vitals Vital Signs Date Time Temp Pulse Resp B/P Pulse Ox O2 Delivery O2 Flow Rate FiO2 05/01/17 19:40 98.1 96 20 128/75 97 04/29/17 23:30 Room Air Intake and Output 04/30/17 04/30/17 05/01/17 15:00 23:00 07:00 Intake Total 705 ml 1480 ml 1400 ml Output Total 1200 ml Balance 705 ml 280 ml 1400 ml Results Result Diagram: 05/01/17 0553 05/01/17 0553 Results 24 hrs Laboratory Tests Test 05/01/17 05:53 White Blood Count 5.6 Red Blood Count 3.25 L Hemoglobin 9.5 L Hematocrit 30.5 L Mean Corpuscular Volume 93.8 Mean Corpuscular Hemoglobin 29.2 Mean Corpuscular Hemoglobin Concent 31.1 L Red Cell Distribution Width 14.9 H Platelet Count 408 Mean Platelet Volume 9.4 Neutrophils % 62.3 Lymphocytes % 22.5 Monocytes % 12.2 H Eosinophils % 2.3 Basophils % 0.5 Nucleated Red Blood Cells % 0.0 Neutrophils # 3.5 Lymphocytes # 1.3 Monocytes # 0.7 Eosinophils # 0.1 Basophils # 0.0 Nucleated Red Blood Cells # 0.0 Sodium Level 146 H Potassium Level 3.8 Chloride Level 105 Carbon Dioxide Level 30 Anion Gap 15 Blood Urea Nitrogen 3 L Creatinine 0.37 L Glucose Level 113 Calcium Level 8.6 Phosphorus Level 2.9 Magnesium Level 1.9 Medications Medications Current Medications Dextrose/Sodium Chloride (D5-1/2ns) 1,000 ml @ 100 mls/hr Q10H IV Last administered on 05/01/17 17:42; Admin Dose 100 MLS/HR; Start 04/23/17 at 22:30 Ondansetron HCl (Zofran Inj) 4 mg Q6H PRN IV NAUSEA AND/OR VOMITING; Start 04/23 at 22:30 Morphine Sulfate 3 mg 3 mg Q4H PRN IV PAIN Last administered on 04/25/17 10:52 ; Admin Dose 3 MG; Start 04/23/17 at 22:30 Piperacillin Sod/ Tazobactam Sod (Zosyn 3.375gm/ 100 ml (Pmx)) 100 ml @ 200 mls /hr Q6 IVPB Last administered on 05/01/17 17:41; Admin Dose 200 MLS/HR; Start 04/24/17 at 00:00 Lorazepam (Ativan) 2 mg Q10MIN PRN IV seizure; Start 04/24/17 at 11:00 Methylprednisolone Sodium Succinate (Solu-Medrol) 20 mg DAILY IV Last administered on 05/01/17 09:23; Admin Dose 20 MG; Start 04/24/17 at 11:30 Folic Acid (Folic Acid) 1 mg DAILY PO Last administered on 05/01/17 09:25; Admin Dose 1 MG; Start 04/24/17 at 14:30 Multivitamins Therapeutic (Theragran) 1 tab DAILY PO Last administered on 09:25; Admin Dose 1 TAB; Start 04/24/17 at 14:30 Primidone (Mysoline) 250 mg TID PO Last administered on 05/01/17 20:29; Admin Dose 250 MG; Start 04/24/17 at 15:00 Sulfasalazine (Azulfidine) 500 mg QID PO Last administered on 05/01/17 20:29; Admin Dose 500 MG; Start 04/24/17 at 17:00 Atorvastatin Calcium (Lipitor) 20 mg DAILY@21 PO Last administered on 20:29; Admin Dose 20 MG; Start 04/24/17 at 21:00 Non-Formulary Medication 1 DOSE = 20 mcg/ 0.08ml DAILY SC Last administered on 05/01/17 09:50; Admin Dose 1 EA; Start 04/25/17 at 09:00 Fluconazole 100 mg 100 mg DAILY PO Last administered on 8/11/17at 09:25; Admin Dose 100 MG; Start 04/30/17 at 09:00; Stop 05/04/17 at 08:59 Levetiracetam (Keppra 500 Mg/ 100ml (Pmx)) 100 ml @ 400 mls/hr Q12 IVPB Last administered on 05/01/17t 20:29; Admin Dose 400 MLS/HR; Start 04/30/17 at 21:00 THELMA FULTON NP May 01, 2017 22:57
[2017-05-02 02:06] VITALS: BP 99/52; RESP 18
[2017-05-02 05:49] LABS: BASOPHILS % 0.3 % (0.0-2.0); EOSINOPHILS # 0.2 10^3/ul (0.0-0.5); EOSINOPHILS % 2.3 % (0.0-7.0); HEMATOCRIT 32.5 % (37.0-47.0); HEMOGLOBIN 9.9 g/dl (12.0-16.0); LYMPHOCYTES # 1.3 10^3/ul (0.8-2.9); LYMPHOCYTES % 19.3 % (15.0-51.0); MEAN CORPUSCULAR HEMOGLOBIN 28.5 pg (29.0-33.0); MEAN CORPUSCULAR HGB CONC 30.5 g/dl (32.0-37.0); MEAN CORPUSCULAR VOLUME 93.7 fl (82.0-101.0); MEAN PLATELET VOLUME 9.3 fl (7.4-10.4); MONOCYTE # 0.8 10^3/ul (0.3-0.9); MONOCYTES % 11.4 % (0.0-11.0); NEUTROPHIL # 4.4 10^3/ul (1.6-7.5); NEUTROPHILS % 66.4 % (39.0-77.0); PLATELET COUNT 396 10^3/UL (140-415); RED BLOOD COUNT 3.47 10^6/ul (4.20-5.40); RED CELL DISTRIBUTION WIDTH 15.2 % (11.5-14.5); WHITE BLOOD COUNT 6.6 10^3/ul (4.8-10.8)
[2017-05-02] MEDS: DEXTROSE 5%-0.45% NACL 1,000 ML IV SCH ×2 (05:50→16:13)
[2017-05-02 06:02] LABS: CALCIUM 8.9 mg/dl (8.4-10.2); CREATININE 0.38 mg/dl (0.44-1.00)
[2017-05-02 06:04] LABS: MAGNESIUM 1.7 mg/dl (1.7-2.5)
[2017-05-02 06:07] LABS: POTASSIUM 3.3 mmol/L (3.5-5.1)
[2017-05-02 07:49] VITALS: BP 104/60; RESP 16
[2017-05-02] MEDS: METHYLPREDNISOLONE 40 MG INJ IV SCH (08:38)
[2017-05-02] MEDS: PRIMIDONE 250 MG TAB PO SCH ×3 (08:38→20:43)
[2017-05-02] MEDS: FOLIC ACID 1 MG TAB PO SCH (08:38)
[2017-05-02] MEDS: MULTIVITAMINS THERAPEUTIC TAB PO SCH (08:38)
[2017-05-02] MEDS: FLUCONAZOLE 100 MG TAB PO SCH (08:38)
[2017-05-02] MEDS: SULFASALAZINE 500 MG TAB PO SCH ×4 (08:38→20:43)
[2017-05-02] MEDS: LEVETIRACETAM 500 MG (PMX) 100 ML IVPB SCH ×2 (08:39→20:42)
[2017-05-02] MEDS: TERIPARATIDE 600 MCG/2.4 ML SC SCH (08:39)
--- NOTE | 2017-05-02 10:49 | PN ---
Date/Time of Note Date/Time of Note DATE: 05/02/17 TIME: 10:44 Assessment/Plan VTE Prophylaxis VTE Prophylaxis Intervention: SCD's Lines/Catheters [facility] Peripheral IV Urinary Cath still in place: No Assessment/Plan Chief Complaint/Hosp Course 1. Large diverticular abscess in the central pelvis. Possibly malignant. The patient being followed by general surgery, oncology and Urology. Status post CT -guided biopsy of the lesion. Status post transurethral resection of bladder tumors on 04/29/2017. 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 The patient needs partial cystectomy in addition to removal of pelvic tumor that is mostly outside of the bladder that would be done at a later date. 2. Seizure disorder. Continue anticonvulsants. 3. Rheumatoid arthritis. Continue current care. 4. Sjogren's syndrome. Continue current care. 5. History of brain tumor. Status post resection. 6. Normocytic, normochromic anemia. Most probably anemia chronic disease. Monitor H&H closely. 7. Systemic inflammatory response syndrome with underlying UTI. On antimicrobials as per infectious diseases. 8. Fluids, electrolytes, and nutrition. Soft diet. 9. DVT prophylaxis. Bilateral sequential compression devices. 10. Plan. Replete potassium. Continue current management. Await further recommendations from consultants. The patient needs partial cystectomy in addition to removal of pelvic tumor that is mostly outside of the bladder that would be done at a later date (early next week). Case discussed with Dr. Villareal. Problems: Subjective 24 Hr Interval Summary Free Text/Dictation Denies any pain. Exam/Review of Systems Vital Signs Vitals Vital Signs Date Time Temp Pulse Resp B/P Pulse Ox O2 Delivery O2 Flow Rate FiO2 05/02/17 07:49 98.2 73 16 104/60 98 04/29/17 23:30 Room Air Intake and Output 05/01/17 05/01/17 05/02/17 15:00 23:00 07:00 Intake Total 100 ml 1120 ml Balance 100 ml 1120 ml Exam General: Adequately build 56 year-old male lying in bed in no apparent distress. HEENT: Normocephalic, atraumatic. Eyes: Anicteric sclerae, conjunctivae clear. ENT: Nasal septum midline, oral mucosa moist. Neck supple, no JVD noticed. Respiratory: Bilaterally clear breath sounds. No use of accessory muscles of respiration. No adventitious breath sounds. Cardiovascular: S1, S2 heard. No murmurs or gallops. Abdomen: Soft, nontender, and nondistended. Bowel sounds positive in all 4 quadrants. Genitourinary: Deferred. Extremities: No cyanosis, no clubbing, no edema. Peripheral pulses palpable. Chronic deformities of bilateral metacarpal joints. Neurologic: Cranial nerves II through XII grossly intact. The patient is awake, alert, and oriented. Skin: Normal skin turgor. No skin rashes. Results Result Diagram: 05/02/1752205/02/17522 Results 24 hrs Laboratory Tests Test 05/02/17 05:23 White Blood Count 6.6 Red Blood Count 3.47 L Hemoglobin 9.9 L Hematocrit 32.5 L Mean Corpuscular Volume 93.7 Mean Corpuscular Hemoglobin 28.5 L Mean Corpuscular Hemoglobin Concent 30.5 L Red Cell Distribution Width 15.2 H Platelet Count 396 Mean Platelet Volume 9.3 Neutrophils % 66.4 Lymphocytes % 19.3 Monocytes % 11.4 H Eosinophils % 2.3 Basophils % 0.3 Nucleated Red Blood Cells % 0.0 Neutrophils # 4.4 Lymphocytes # 1.3 Monocytes # 0.8 Eosinophils # 0.2 Basophils # 0.0 Nucleated Red Blood Cells # 0.0 Sodium Level 146 H Potassium Level 3.3 L Chloride Level 104 Carbon Dioxide Level 30 Anion Gap 15 Blood Urea Nitrogen 4 L Creatinine 0.38 L Glucose Level 103 Calcium Level 8.9 Phosphorus Level 3.0 Magnesium Level 1.7 Medications Medications Current Medications Dextrose/Sodium Chloride (D5-1/2ns) 1,000 ml @ 100 mls/hr Q10H IV Last administered on 05/02/17 05:50; Admin Dose 100 MLS/HR; Start 04/23/17 at 22:30 Ondansetron HCl (Zofran Inj) 4 mg Q6H PRN IV NAUSEA AND/OR VOMITING; Start 04/23 at 22:30 Morphine Sulfate (morphine) 3 mg Q4H PRN IV PAIN Last administered on 04/25/17 10:52; Admin Dose 3 MG; Start 04/23/17 at 22:30 Lorazepam (Ativan) 2 mg Q10MIN PRN IV seizure; Start 04/24/17 at 11:00 Methylprednisolone Sodium Succinate (Solu-Medrol) 20 mg DAILY IV Last administered on 05/02/17 08:38; Admin Dose 20 MG; Start 04/24/17 at 11:30 Folic Acid (Folic Acid) 1 mg DAILY PO Last administered on 05/02/17 08:38; Admin Dose 1 MG; Start 04/24/17 at 14:30 Multivitamins Therapeutic (Theragran) 1 tab DAILY PO Last administered on 08:38; Admin Dose 1 TAB; Start 04/24/17 at 14:30 Primidone (Mysoline) 250 mg TID PO Last administered on 05/02/17 08:38; Admin Dose 250 MG; Start 04/24/17 at 15:00 Sulfasalazine (Azulfidine) 500 mg QID PO Last administered on 05/02/17 08:38; Admin Dose 500 MG; Start 04/24/17 at 17:00 Atorvastatin Calcium (Lipitor) 20 mg DAILY@21 PO Last administered on 20:29; Admin Dose 20 MG; Start 04/24/17 at 21:00 Non-Formulary Medication 1 DOSE = 20 mcg/ 0.08ml DAILY SC Last administered on 05/02/17 08:39; Admin Dose 1 EA; Start 04/25/17 at 09:00 Fluconazole 100 mg 100 mg DAILY PO Last administered on 05/02/17 08:38; Admin Dose 100 MG; Start 04/30/17 at 09:00; Stop 05/04/17 at 08:59 Levetiracetam (Keppra 500 Mg/ 100ml (Pmx)) 100 ml @ 400 mls/hr Q12 IVPB Last administered on 05/02/17 08:39; Admin Dose 400 MLS/HR; Start 04/30/17 at 21:00 LATASHA RICHARDSON NP May 02, 2017 10:49
[2017-05-02] MEDS ORDERED: POTASSIUM CHLORIDE (SR) 10 MEQ TAB PO ONE (11:00)
--- NOTE | 2017-05-02 11:01 | PN ---
Date/Time of Note Date/Time of Note DATE: 05/02/17 TIME: 10:50 Assessment/Plan VTE Prophylaxis VTE Prophylaxis Intervention: ambulation Lines/Catheters IV Catheter Type (from [facility]): Peripheral IV Urinary Cath still in place: No Assessment/Plan Chief Complaint/Hosp Course Pelvic tumor, recurrent in the same location as the one she was operated on in 2011. Patient is status post transurethral resection of the bladder tumor. The pathology report : PRELIMINARY MICROSCOPIC DIAGNOSIS: Bladder tumor: -- Mucinous adenocarcinoma, well-differentiated, with extensive calcification. -- Muscularis propria is not present in the specimen. COMMENT: This patient had previous removal of a pelvic tumor diagnosed as mucinous adenocarcinoma, low grade ([facility] case no. [id number]; 10/29/11). Tumor in the current specimen is histologically identical to the previously diagnosed mucinous carcinoma. 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 A limited panel of immunohistochemical stains are in progress to further characterize the tumor and a final report will be issued following review of those stains. [email or web address] Date of Service: 04/29/17; Date Received: 04/30/17 Dictated: 05/01/17; Transcribed: 05/01/17; Sent by Fax: 05/01/17; Reviewed: MATTHEW Calvo M.D. Pathologist Electronically Signed 05/01/2017 Problems: Assessment/Plan partial cystectomy,cystoscopy and insertion of ureteral catheters and excision/ removal of intraabdominal and pelvic tumors .Procedure to be done together with Dr Rosa De Los Santos Subjective 24 Hr Interval Summary Constitutional: no complaints Eyes: no complaints ENT: no complaints Respiratory: no complaints Cardiovascular: no complaints Gastrointestinal: No pain Genitourinary: no complaints, other, No bleeding, No hematuria Skin: no complaints Neurologic: no complaints Endocrine: no complaints Lymphatic: no complaints Exam/Review of Systems Vital Signs Vitals Vital Signs Date Time Temp Pulse Resp B/P Pulse Ox O2 Delivery O2 Flow Rate FiO2 05/02/17 07:49 98.2 73 16 104/60 98 04/29/17 23:30 Room Air Intake and Output 05/01/17 05/01/17 05/02/17 15:00 23:00 07:00 Intake Total 100 ml 1120 ml Balance 100 ml 1120 ml Exam Constitutional: alert, oriented, other (family at bedside) Psych: no complaints Head: normocephalic Eyes: nl conjunctiva ENMT: nl external ears & nose Neck: supple Respiratory: normal air movement, other Cardiovascular: No edema Gastrointestinal: soft, surgical scars Genitourinary - Female: No CVA tenderness Results CT of the chest: Low lung volumes with mild scattered basilar atelectatic changes. Stable tiny left lower lobe pulmonary nodule. No evidence of new or concerning pulmonary nodule. No evidence of pulmonary metastases. Small cystic nodule of the right lobe, grossly unchanged. 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 RPTAT: HLST .Betzy Godoy MD, MD Date Time Electronically viewed and si Result Diagram: 05/02/1752205/02/17522 Results 24 hrs Laboratory Tests Test 05/02/17 05:23 White Blood Count 6.6 Red Blood Count 3.47 L Hemoglobin 9.9 L Hematocrit 32.5 L Mean Corpuscular Volume 93.7 Mean Corpuscular Hemoglobin 28.5 L Mean Corpuscular Hemoglobin Concent 30.5 L Red Cell Distribution Width 15.2 H Platelet Count 396 Mean Platelet Volume 9.3 Neutrophils % 66.4 Lymphocytes % 19.3 Monocytes % 11.4 H Eosinophils % 2.3 Basophils % 0.3 Nucleated Red Blood Cells % 0.0 Neutrophils # 4.4 Lymphocytes # 1.3 Monocytes # 0.8 Eosinophils # 0.2 Basophils # 0.0 Nucleated Red Blood Cells # 0.0 Sodium Level 146 H Potassium Level 3.3 L Chloride Level 104 Carbon Dioxide Level 30 Anion Gap 15 Blood Urea Nitrogen 4 L Creatinine 0.38 L Glucose Level 103 Calcium Level 8.9 Phosphorus Level 3.0 Magnesium Level 1.7 Medications Medications Current Medications Dextrose/Sodium Chloride (D5-1/2ns) 1,000 ml @ 100 mls/hr Q10H IV Last administered on 05/02/17t 05:50; Admin Dose 100 MLS/HR; Start 04/23/17 at 22:30 Ondansetron HCl (Zofran Inj) 4 mg Q6H PRN IV NAUSEA AND/OR VOMITING; Start 04/23 at 22:30 Morphine Sulfate (morphine) 3 mg Q4H PRN IV PAIN Last administered on 04/25/17 10:52; Admin Dose 3 MG; Start 04/23/17 at 22:30 Lorazepam (Ativan) 2 mg Q10MIN PRN IV seizure; Start 04/24/17 at 11:00 Methylprednisolone Sodium Succinate (Solu-Medrol) 20 mg DAILY IV Last administered on 05/02/17 08:38; Admin Dose 20 MG; Start 04/24/17 at 11:30 Folic Acid (Folic Acid) 1 mg DAILY PO Last administered on 05/02/17 08:38; Admin Dose 1 MG; Start 04/24/17 at 14:30 Multivitamins Therapeutic (Theragran) 1 tab DAILY PO Last administered on 08:38; Admin Dose 1 TAB; Start 04/24/17 at 14:30 Primidone (Mysoline) 250 mg TID PO Last administered on 05/02/17 08:38; Admin Dose 250 MG; Start 04/24/17 at 15:00 Sulfasalazine (Azulfidine) 500 mg QID PO Last administered on 05/02/17 08:38; Admin Dose 500 MG; Start 04/24/17 at 17:00 Atorvastatin Calcium (Lipitor) 20 mg DAILY@21 PO Last administered on 20:29; Admin Dose 20 MG; Start 04/24/17 at 21:00 Non-Formulary Medication 1 DOSE = 20 mcg/ 0.08ml DAILY SC Last administered on 05/02/17 08:39; Admin Dose 1 EA; Start 04/25/17 at 09:00 Fluconazole 100 mg 100 mg DAILY PO Last administered on 05/02/17 08:38; Admin Dose 100 MG; Start 04/30/17 at 09:00; Stop 05/04/17 at 08:59 Levetiracetam (Keppra 500 Mg/ 100ml (Pmx)) 100 ml @ 400 mls/hr Q12 IVPB Last administered on 05/02/17 08:39; Admin Dose 400 MLS/HR; Start 04/30/17 at 21:00 Potassium Chloride (Klor-Con 10) 30 meq ONCE ONCE PO ; Start 05/02/17 at 11:00 ; Stop 05/02/17 at 11:01; Status TRESSA PEREZ MD May 02, 2017 11:01
[2017-05-02 14:33] VITALS: BP 102/59; RESP 18
--- NOTE | 2017-05-02 16:47 | PN ---
Date/Time of Note Date/Time of Note DATE: 05/02/17 TIME: 16:44 Assessment/Plan VTE Prophylaxis VTE Prophylaxis Intervention: ambulation Lines/Catheters IV Catheter Type (from [facility]): Peripheral IV Urinary Cath still in place: No Assessment/Plan Assessment/Plan 56 y/o female with findings of an 11 cm pelvic mass which has been suspected to be a diverticular abcess, now noted urachal carcinoma Pt had similar presentation in 2011. 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 The primary was never determined but it was felt to be of GI origin. Pt underwent a supracervical hysterectomy with BSO, omentectomy and appendectomy. No therapy was administered post operatively and pt was well until ~ 2mos ago when she began to experience dysuria and hematuria. 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 Patient now awaiting surgery likely early this week Subjective 24 Hr Interval Summary Free Text/Dictation Patient awake, alert and comfortable Exam/Review of Systems Vital Signs Vitals Vital Signs Date Time Temp Pulse Resp B/P Pulse Ox O2 Delivery O2 Flow Rate FiO2 05/02/17 14:33 98.0 76 18 102/59 98 04/29/17 23:30 Room Air Intake and Output 05/01/17 05/01/17 05/02/17 15:00 23:00 07:00 Intake Total 200 ml 350 ml 1120 ml Balance 200 ml 350 ml 1120 ml Exam Constitutional: alert, oriented Head: atraumatic, normocephalic Eyes: EOMI, PERRL Neck: non-tender, supple Respiratory: clear to auscultation, normal air movement Cardiovascular: nl pulses, regular rate and rhythm Gastrointestinal: non-tender, soft Musculoskeletal: nl extremities to inspection Extremities: edema, No calf tenderness, No clubbing, No cyanosis, No normal pulses, No other, No palpable cord, No pitting pedal edema, No tenderness 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: nl mental status, nl speech Skin: nl turgor, rash or lesions Results Result Diagram: 05/02/17 0505/02/17 0523 Results 24 hrs Laboratory Tests Test 05/02/17 05:23 White Blood Count 6.6 Red Blood Count 3.47 L Hemoglobin 9.9 L Hematocrit 32.5 L Mean Corpuscular Volume 93.7 Mean Corpuscular Hemoglobin 28.5 L Mean Corpuscular Hemoglobin Concent 30.5 L Red Cell Distribution Width 15.2 H Platelet Count 396 Mean Platelet Volume 9.3 Neutrophils % 66.4 Lymphocytes % 19.3 Monocytes % 11.4 H Eosinophils % 2.3 Basophils % 0.3 Nucleated Red Blood Cells % 0.0 Neutrophils # 4.4 Lymphocytes # 1.3 Monocytes # 0.8 Eosinophils # 0.2 Basophils # 0.0 Nucleated Red Blood Cells # 0.0 Sodium Level 146 H Potassium Level 3.3 L Chloride Level 104 Carbon Dioxide Level 30 Anion Gap 15 Blood Urea Nitrogen 4 L Creatinine 0.38 L Glucose Level 103 Calcium Level 8.9 Phosphorus Level 3.0 Magnesium Level 1.7 Medications Medications Current Medications Dextrose/Sodium Chloride (D5-1/2ns) 1,000 ml @ 100 mls/hr Q10H IV Last administered on 05/02/17 16:13; Admin Dose 100 MLS/HR; Start 04/23/17 at 22:30 Ondansetron HCl (Zofran Inj) 4 mg Q6H PRN IV NAUSEA AND/OR VOMITING; Start 04/23 at 22:30 Morphine Sulfate (morphine) 3 mg Q4H PRN IV PAIN Last administered on 04/25/17 10:52; Admin Dose 3 MG; Start 04/23/17 at 22:30 Lorazepam (Ativan) 2 mg Q10MIN PRN IV seizure; Start 04/24/17 at 11:00 Methylprednisolone Sodium Succinate (Solu-Medrol) 20 mg DAILY IV Last administered on 05/02/17 08:38; Admin Dose 20 MG; Start 04/24/17 at 11:30 Folic Acid (Folic Acid) 1 mg DAILY PO Last administered on 05/02/17 08:38; Admin Dose 1 MG; Start 04/24/17 at 14:30 Multivitamins Therapeutic (Theragran) 1 tab DAILY PO Last administered on 08:38; Admin Dose 1 TAB; Start 04/24/17 at 14:30 Primidone (Mysoline) 250 mg TID PO Last administered on 05/02/17 12:41; Admin Dose 250 MG; Start 04/24/17 at 15:00 Sulfasalazine (Azulfidine) 500 mg QID PO Last administered on 05/02/17 16:13; Admin Dose 500 MG; Start 04/24/17 at 17:00 Atorvastatin Calcium (Lipitor) 20 mg DAILY@21 PO Last administered on 20:29; Admin Dose 20 MG; Start 04/24/17 at 21:00 Non-Formulary Medication 1 DOSE = 20 mcg/ 0.08ml DAILY SC Last administered on 05/02/17 08:39; Admin Dose 1 EA; Start 04/25/17 at 09:00 Fluconazole 100 mg 100 mg DAILY PO Last administered on 05/02/17 08:38; Admin Dose 100 MG; Start 04/30/17 at 09:00; Stop 05/04/17 at 08:59 Levetiracetam (Keppra 500 Mg/ 100ml (Pmx)) 100 ml @ 400 mls/hr Q12 IVPB Last administered on 05/02/17 08:39; Admin Dose 400 MLS/HR; Start 04/30/17 at 21:00 ALTAGRACIA ABDALLA MD May 02, 2017 16:47
[2017-05-02 20:22] VITALS: BP 120/58; RESP 18
[2017-05-02] MEDS: ATORVASTATIN 20 MG TAB PO SCH (20:43)
--- NOTE | 2017-05-02 23:23 | PN ---
Date/Time of Note Date/Time of Note DATE: 05/02/17 TIME: 23:23 Assessment/Plan Lines/Catheters IV Catheter Type (from [facility]): Peripheral IV Stubbs in Place (from [facility]): No Assessment/Plan Chief Complaint/Hosp Course 1. 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 UTI: multiorganism pathogens -abx per sensitivity 3.Normocytic anemia: no acute bleed noted -monitor -transfuse as needed 4. History of pelvic ca, brain tumor: concern for recurrence -as above -per onc -CT chest today 6. Hypernatremia: normalized Patient seen and examined in collaboration with Dr. Jonatan DeL os Santos. Thank you. Problems: Subjective 24 Hr Interval Summary Feels well. No acute changes. No c/o pain or dysuria. No fevers, chills, sob, cough, cp, n/v/d. Exam/Review of Systems Vital Signs Vitals Vital Signs Date Time Temp Pulse Resp B/P Pulse Ox O2 Delivery O2 Flow Rate FiO2 05/04/17 19:52 98.5 81 18 109/56 97 Intake and Output 05/03/17 05/03/17 05/04/17 15:00 23:00 07:00 Intake Total 600 ml 2010 ml 1200 ml Output Total 1150 ml Balance 600 ml 860 ml 1200 ml Exam Free Text/Dictation Constitutional: alert, oriented, fatigued Psych: anxiety, Head: atraumatic, normocephalic Eyes: nl lids, nl sclera ENMT: mucosa pink and moist, nl nasal mucosa & septum Neck: non-tender, supple Respiratory: clear to auscultation, normal air movement Cardiovascular: regular rate and rhythm, No edema Gastrointestinal: mass (palpable mass in suprapubic region), soft, non tender, rotund, bowel sounds x4 quads : no dysuria, hematuria Musculoskeletal: nl extremities to inspection, nl gait and stance Extremities: normal pulses, No edema 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: nl mental status, nl speech, nl strength Lymph: No nl lymph nodes Results Result Diagram: 05/04/1761205/04/17612 JENIFER CABAN NP May 02, 2017 23:23
[2017-05-03 01:04] VITALS: BP 123/59; RESP 18
[2017-05-03] MEDS: DEXTROSE 5%-0.45% NACL 1,000 ML IV SCH ×3 (02:38→16:42)
[2017-05-03 06:03] LABS: BASOPHILS % 0.4 % (0.0-2.0); EOSINOPHILS # 0.1 10^3/ul (0.0-0.5); EOSINOPHILS % 2.3 % (0.0-7.0); HEMATOCRIT 31.8 % (37.0-47.0); HEMOGLOBIN 9.8 g/dl (12.0-16.0); LYMPHOCYTES # 1.5 10^3/ul (0.8-2.9); MEAN CORPUSCULAR HGB CONC 30.8 g/dl (32.0-37.0); MEAN CORPUSCULAR VOLUME 94.1 fl (82.0-101.0); MEAN PLATELET VOLUME 9.5 fl (7.4-10.4); MONOCYTE # 0.8 10^3/ul (0.3-0.9); MONOCYTES % 14.4 % (0.0-11.0); NEUTROPHIL # 2.8 10^3/ul (1.6-7.5); NEUTROPHILS % 53.7 % (39.0-77.0); PLATELET COUNT 376 10^3/UL (140-415); RED BLOOD COUNT 3.38 10^6/ul (4.20-5.40); RED CELL DISTRIBUTION WIDTH 15.2 % (11.5-14.5); WHITE BLOOD COUNT 5.3 10^3/ul (4.8-10.8)
[2017-05-03 06:24] LABS: MAGNESIUM 1.6 mg/dl (1.7-2.5); PHOSPHORUS 3.7 mg/dl (2.5-4.9)
[2017-05-03 06:26] LABS: CALCIUM 8.9 mg/dl (8.4-10.2); CREATININE 0.35 mg/dl (0.44-1.00); POTASSIUM 4.1 mmol/L (3.5-5.1)
[2017-05-03 07:57] VITALS: BP 115/60; RESP 18
[2017-05-03] MEDS: LEVETIRACETAM 500 MG (PMX) 100 ML IVPB SCH ×2 (08:31→20:56)
[2017-05-03] MEDS: SULFASALAZINE 500 MG TAB PO SCH ×4 (08:32→20:56)
[2017-05-03] MEDS: METHYLPREDNISOLONE 40 MG INJ IV SCH (08:32)
[2017-05-03] MEDS: FOLIC ACID 1 MG TAB PO SCH (08:32)
[2017-05-03] MEDS: FLUCONAZOLE 100 MG TAB PO SCH (08:32)
[2017-05-03] MEDS: MULTIVITAMINS THERAPEUTIC TAB PO SCH (08:32)
[2017-05-03] MEDS: PRIMIDONE 250 MG TAB PO SCH ×3 (08:32→20:57)
[2017-05-03] MEDS: TERIPARATIDE 600 MCG/2.4 ML SC SCH (08:32)
--- NOTE | 2017-05-03 09:08 | PN ---
DATE: 05/02/2017 SUBJECTIVE DATA: No acute changes. The patient is alert, feels good, denies pain discomfort. No fevers. LABORATORY AND DIAGNOSTIC DATA: WBC 6.6, platelets 396, no shift. BUN 4, creatinine 0.38. CT of the chest yesterday revealed lower lung volume with mild scattered basilar atelectatic changes, stable. Tiny left lower lobe pulmonary nodules. No evidence of new or concerning pulmonary nodule. No metastasis. Mild hydronephrosis. Small cystic nodule of the right lobe grossly unchanged. MICROBIOLOGY: Urine culture grew danika albicans. Intraabdominal fluid drainage grew danika albicans and also gamma hemolytic strep species. Blood cultures remain negative. ANTIMICROBIALS: Fluconazole, status post Zosyn. OBJECTIVE DATA: GENERAL: Fragile, well-developed, middle aged woman who is in no distress. HEENT: Head atraumatic, normocephalic. Sclera anicteric. Buccal mucosa dry. NECK: Supple. CHEST: Chest rise symmetrical. Breath sounds diminished at bases. HEART: S1, S2. ABDOMEN: Soft. Bowel sounds present. EXTREMITIES: Without cyanosis. ASSESSMENT: 1. Pelvic abscess, status post CT guided aspiration with cultures growing danika albicans and strep species, status post Zosyn. 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 2. Danika albicans urinary tract infection (UTI). 3. History of transurethral resection of the bladder tumor. 4. History of rheumatoid arthritis. PLAN: The patient remains stable. We will add Rocephin to cover Strep that grew out of her intraabdominal fluid. As per Urology note the pending partial cystectomy, cystoscopy, and insertion of urethral catheter, as well as excision and removal of intraabdominal and pelvic tumors to be done together with Dr. Jonatan De Los Santos. Dictated By: Nicole Carlson NP /brandon/iona /Document#: [id number] JORGE
--- NOTE | 2017-05-03 09:09 | PN ---
Date/Time of Note Date/Time of Note DATE: 05/03/17 TIME: 09:08 Assessment/Plan VTE Prophylaxis VTE Prophylaxis Intervention: SCD's Lines/Catheters IV Catheter Type (from [facility]): Saline Lock Urinary Cath still in place: No Assessment/Plan Chief Complaint/Hosp Course 1. Large diverticular abscess in the central pelvis. Culture showing poly microbials. On ABX. Possibly malignant. The patient being followed by general surgery, oncology and Urology. Status post CT-guided biopsy of the lesion. Status post transurethral resection of bladder tumors on 04/29/2017. 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 The patient needs partial cystectomy in addition to removal of pelvic tumor that is mostly outside of the bladder that would be done at a later date. 2. UTI. Continue antimicrobials as per ID. 3. Seizure disorder. Continue anticonvulsants. 4. Rheumatoid arthritis. Continue current care. 5. Sjogren's syndrome. Continue current care. 6. History of brain tumor. Status post resection. 7. Normocytic, normochromic anemia. Most probably anemia chronic disease. Monitor H&H closely. 8. Fluids, electrolytes, and nutrition. Soft diet. 9. DVT prophylaxis. Bilateral sequential compression devices. 10. Plan. Replete magnesium. Continue current management. Await further recommendations from consultants. The patient needs partial cystectomy in addition to removal of pelvic tumor that is mostly outside of the bladder that would be done at a later date (early next week). Case discussed with Dr. Villareal. Problems: Subjective 24 Hr Interval Summary Free Text/Dictation Remains afebrile. Denies any pain. Exam/Review of Systems Vital Signs Vitals Vital Signs Date Time Temp Pulse Resp B/P Pulse Ox O2 Delivery O2 Flow Rate FiO2 05/03/17 07:57 98.2 72 18 115/60 99 04/29/17 23:30 Room Air Intake and Output 05/02/17 05/02/17 05/03/17 15:00 23:00 07:00 Intake Total 100 ml 2400 ml 1120 ml Output Total 950 ml Balance 100 ml 1450 ml 1120 ml Exam General: Adequately build 56 year-old male lying in bed in no apparent distress. HEENT: Normocephalic, atraumatic. Eyes: Anicteric sclerae, conjunctivae clear. ENT: Nasal septum midline, oral mucosa moist. Neck supple, no JVD noticed. Respiratory: Bilaterally clear breath sounds. No use of accessory muscles of respiration. No adventitious breath sounds. Cardiovascular: S1, S2 heard. No murmurs or gallops. Abdomen: Soft, nontender, and nondistended. Bowel sounds positive in all 4 quadrants. Genitourinary: Deferred. Extremities: No cyanosis, no clubbing, no edema. Peripheral pulses palpable. Chronic deformities of bilateral metacarpal joints. Neurologic: Cranial nerves II through XII grossly intact. The patient is awake, alert, and oriented. Skin: Normal skin turgor. No skin rashes. Results Result Diagram: 05/03/17 0531 05/03/17 0531 Results 24 hrs Laboratory Tests Test 05/03/17 05:31 White Blood Count 5.3 Red Blood Count 3.38 L Hemoglobin 9.8 L Hematocrit 31.8 L Mean Corpuscular Volume 94.1 Mean Corpuscular Hemoglobin 29.0 Mean Corpuscular Hemoglobin Concent 30.8 L Red Cell Distribution Width 15.2 H Platelet Count 376 Mean Platelet Volume 9.5 Neutrophils % 53.7 Lymphocytes % 29.0 Monocytes % 14.4 H Eosinophils % 2.3 Basophils % 0.4 Nucleated Red Blood Cells % 0.0 Neutrophils # 2.8 Lymphocytes # 1.5 Monocytes # 0.8 Eosinophils # 0.1 Basophils # 0.0 Nucleated Red Blood Cells # 0.0 Sodium Level 145 H Potassium Level 4.1 Chloride Level 105 Carbon Dioxide Level 29 Anion Gap 15 Blood Urea Nitrogen 4 L Creatinine 0.35 L Glucose Level 107 Calcium Level 8.9 Phosphorus Level 3.7 Magnesium Level 1.6 L Medications Medications Current Medications Dextrose/Sodium Chloride (D5-1/2ns) 1,000 ml @ 100 mls/hr Q10H IV Last administered on 05/03/17 02:38; Admin Dose 100 MLS/HR; Start 04/23/17 at 22:30 Ondansetron HCl (Zofran Inj) 4 mg Q6H PRN IV NAUSEA AND/OR VOMITING; Start 04/23 at 22:30 Morphine Sulfate (morphine) 3 mg Q4H PRN IV PAIN Last administered on 04/25/17 10:52; Admin Dose 3 MG; Start 04/23/17 at 22:30 Lorazepam (Ativan) 2 mg Q10MIN PRN IV seizure; Start 04/24/17 at 11:00 Methylprednisolone Sodium Succinate (Solu-Medrol) 20 mg DAILY IV Last administered on 05/03/17 08:32; Admin Dose 20 MG; Start 04/24/17 at 11:30 Folic Acid (Folic Acid) 1 mg DAILY PO Last administered on 05/03/17 08:32; Admin Dose 1 MG; Start 04/24/17 at 14:30 Multivitamins Therapeutic (Theragran) 1 tab DAILY PO Last administered on 08:32; Admin Dose 1 TAB; Start 04/24/17 at 14:30 Primidone (Mysoline) 250 mg TID PO Last administered on 05/03/17 08:32; Admin Dose 250 MG; Start 04/24/17 at 15:00 Sulfasalazine (Azulfidine) 500 mg QID PO Last administered on 05/03/17 08:32; Admin Dose 500 MG; Start 04/24/17 at 17:00 Atorvastatin Calcium (Lipitor) 20 mg DAILY@21 PO Last administered on 20:43; Admin Dose 20 MG; Start 04/24/17 at 21:00 Non-Formulary Medication 1 DOSE = 20 mcg/ 0.08ml DAILY SC Last administered on 05/03/17 08:32; Admin Dose 1 EA; Start 04/25/17 at 09:00 Fluconazole 100 mg 100 mg DAILY PO Last administered on 05/03/17 08:32; Admin Dose 100 MG; Start 04/30/17 at 09:00; Stop 05/04/17 at 08:59 Levetiracetam (Keppra 500 Mg/ 100ml (Pmx)) 100 ml @ 400 mls/hr Q12 IVPB Last administered on 05/03/17 08:31; Admin Dose 400 MLS/HR; Start 04/30/17 at 21:00 LATASHA RICHARDSON NP May 03, 2017 09:09
[2017-05-03] MEDS ORDERED: MAGNESIUM SULFATE 2 GM/50 ML 50 ML IVPB ONE (10:00)
--- NOTE | 2017-05-03 12:38 | PN ---
Date/Time of Note Date/Time of Note DATE: 05/03/17 TIME: 12:29 Assessment/Plan Lines/Catheters IV Catheter Type (from [facility]): Peripheral IV Stubbs in Place (from [facility]): No Assessment/Plan Chief Complaint/Hosp Course 1. 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 UTI: multiorganism pathogens -abx per sensitivity 3.Normocytic anemia: no acute bleed noted -monitor -transfuse as needed 4. History of pelvic ca, brain tumor: concern for recurrence; no evidence of pulm mets per CT -as above -per onc Patient seen and examined in collaboration with Dr. Jonatan De Los Santos. Thank you. Problems: Subjective 24 Hr Interval Summary Feels tired today. No c/o pelvic pain, discomfort. No dysuria, hematuria, n/v/d , fevers chills, cp, sob, cough. +bowel function Exam/Review of Systems Vital Signs Vitals Vital Signs Date Time Temp Pulse Resp B/P Pulse Ox O2 Delivery O2 Flow Rate FiO2 05/03/17 07:57 98.2 72 18 115/60 99 04/29/17 23:30 Room Air Intake and Output 05/02/17 05/02/17 05/03/17 15:00 23:00 07:00 Intake Total 100 ml 2400 ml 1120 ml Output Total 950 ml Balance 100 ml 1450 ml 1120 ml Exam Free Text/Dictation Constitutional: alert, oriented, pleasant Psych: anxiety, no complaints Head: atraumatic, normocephalic Eyes: nl lids, nl sclera ENMT: mucosa pink and moist, nl nasal mucosa & septum Neck: non-tender, supple Respiratory: clear to auscultation, normal air movement Cardiovascular: regular rate and rhythm, No edema Gastrointestinal: mass (palpable mass in suprapubic region), soft, non tender, rotund, bowel sounds x4 quads : no dysuria, hematuria Musculoskeletal: nl extremities to inspection, nl gait and stance Extremities: normal pulses, No edema 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: nl mental status, nl speech, nl strength Lymph: No nl lymph nodes Results Result Diagram: 05/03/17 0531 05/03/17 0531 JENIFER CABAN NP May 03, 2017 12:38
[2017-05-03 13:53] VITALS: BP 99/58; RESP 18
[2017-05-03] MEDS: CEFTRIAXONE 1 GM/50 ML (PMX) 50 ML IVPB SCH (16:42)
--- NOTE | 2017-05-03 16:57 | PN ---
Date/Time of Note Date/Time of Note DATE: 05/03/17 TIME: 16:53 Assessment/Plan VTE Prophylaxis VTE Prophylaxis Intervention: anti-embolic stocking Lines/Catheters IV [facility] (from [facility]): Peripheral IV Urinary Cath still in place: No Assessment/Plan Assessment/Plan 56 y/o female with findings of an 11 cm pelvic mass which has been suspected to be a diverticular abcess, now noted urachal carcinoma Pt had similar presentation in 2011. 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 The primary was never determined but it was felt to be of GI origin. Pt underwent a supracervical hysterectomy with BSO, omentectomy and appendectomy. No therapy was administered post operatively and pt was well until ~ 2mos ago when she began to experience dysuria and hematuria. 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 Patient now awaiting surgery likely early this week Patient is prepared Subjective 24 Hr Interval Summary Free Text/Dictation Patient awake, alert, comfortable Exam/Review of Systems Vital Signs Vitals Vital Signs Date Time Temp Pulse Resp B/P Pulse Ox O2 Delivery O2 Flow Rate FiO2 05/03/17 13:53 98.0 89 18 99/58 97 04/29/17 23:30 Room Air Intake and Output 05/02/17 05/02/17 05/03/17 15:00 23:00 07:00 Intake Total 100 ml 2400 ml 1120 ml Output Total 950 ml Balance 100 ml 1450 ml 1120 ml Exam Constitutional: alert, oriented Psych: nl mood/affect, no complaints Head: atraumatic, normocephalic Eyes: EOMI, nl conjunctiva ENMT: mucosa pink and moist, nl lips & teeth Neck: non-tender, supple Respiratory: clear to auscultation, normal air movement Cardiovascular: nl pulses, regular rate and rhythm Gastrointestinal: non-tender, soft Musculoskeletal: nl extremities to inspection, nl gait and stance Extremities: cyanosis, normal pulses 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: 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, nl mental status Results Result Diagram: 05/03/17 0531 05/03/17 0531 Results 24 hrs Laboratory Tests Test 05/03/17 05:31 White Blood Count 5.3 Red Blood Count 3.38 L Hemoglobin 9.8 L Hematocrit 31.8 L Mean Corpuscular Volume 94.1 Mean Corpuscular Hemoglobin 29.0 Mean Corpuscular Hemoglobin Concent 30.8 L Red Cell Distribution Width 15.2 H Platelet Count 376 Mean Platelet Volume 9.5 Neutrophils % 53.7 Lymphocytes % 29.0 Monocytes % 14.4 H Eosinophils % 2.3 Basophils % 0.4 Nucleated Red Blood Cells % 0.0 Neutrophils # 2.8 Lymphocytes # 1.5 Monocytes # 0.8 Eosinophils # 0.1 Basophils # 0.0 Nucleated Red Blood Cells # 0.0 Sodium Level 145 H Potassium Level 4.1 Chloride Level 105 Carbon Dioxide Level 29 Anion Gap 15 Blood Urea Nitrogen 4 L Creatinine 0.35 L Glucose Level 107 Calcium Level 8.9 Phosphorus Level 3.7 Magnesium Level 1.6 L Medications Medications Current Medications Dextrose/Sodium Chloride (D5-1/2ns) 1,000 ml @ 100 mls/hr Q10H IV Last administered on 05/03/17 16:42; Admin Dose 100 MLS/HR; Start 04/23/17 at 22:30 Ondansetron HCl (Zofran Inj) 4 mg Q6H PRN IV NAUSEA AND/OR VOMITING; Start 04/23 at 22:30 Morphine Sulfate (morphine) 3 mg Q4H PRN IV PAIN Last administered on 04/25/17 10:52; Admin Dose 3 MG; Start 04/23/17 at 22:30 Lorazepam (Ativan) 2 mg Q10MIN PRN IV seizure; Start 04/24/17 at 11:00 Methylprednisolone Sodium Succinate (Solu-Medrol) 20 mg DAILY IV Last administered on 05/03/17 08:32; Admin Dose 20 MG; Start 04/24/17 at 11:30 Folic Acid (Folic Acid) 1 mg DAILY PO Last administered on 05/03/17 08:32; Admin Dose 1 MG; Start 04/24/17 at 14:30 Multivitamins Therapeutic (Theragran) 1 tab DAILY PO Last administered on 08:32; Admin Dose 1 TAB; Start 04/24/17 at 14:30 Primidone (Mysoline) 250 mg TID PO Last administered on 05/03/17 12:20; Admin Dose 250 MG; Start 04/24/17 at 15:00 Sulfasalazine (Azulfidine) 500 mg QID PO Last administered on 05/03/17 16:41; Admin Dose 500 MG; Start 04/24/17 at 17:00 Atorvastatin Calcium (Lipitor) 20 mg DAILY@21 PO Last administered on 20:43; Admin Dose 20 MG; Start 04/24/17 at 21:00 Non-Formulary Medication 1 DOSE = 20 mcg/ 0.08ml DAILY SC Last administered on 05/03/17 08:32; Admin Dose 1 EA; Start 04/25/17 at 09:00 Fluconazole 100 mg 100 mg DAILY PO Last administered on 05/03/17 08:32; Admin Dose 100 MG; Start 04/30/17 at 09:00; Stop 05/04/17 at 08:59 Levetiracetam 100 ml @ 400 mls/hr Q12 IVPB Last administered on 05/03/17 08: 31; Admin Dose 400 MLS/HR; Start 04/30/17 at 21:00 Ceftriaxone Sodium (Rocephin) 50 ml @ 100 mls/hr Q24H IVPB Last administered on 05/03/17 16:42; Admin Dose 100 MLS/HR; Start 05/03/17 at 17:00 ALTAGRACIA ABDALLA MD May 03, 2017 16:57
--- NOTE | 2017-05-03 18:53 | PN ---
DATE: 05/03/2017 SUBJECTIVE: No events overnight. No fevers. The patient is alert. Denies pain. Looks comfortable. WBC 5.3, platelets 376, no shift, no bounce. BUN 4, creatinine 0.35. ANTIMICROBIALS: Fluconazole, Rocephin. MICROBIOLOGY: Pathology report of bladder tumor revealed mucinous adenocarcinoma, well differentiated. PHYSICAL EXAMINATION: GENERAL: Well developed, middle-aged man who is alert, in no distress. Head is atraumatic and normocephalic. Sclerae are anicteric. Buccal mucosa is pink and moist. NECK: Supple. CHEST: Symmetrical, breath sounds clear. HEART: S1, S2. ABDOMEN: Soft. Bowel sounds are present. EXTREMITIES: Without cyanosis. ASSESSMENT: 1. Abdominal abscess status post CT-guided drainage where culture grew Ely albicans and Alpha and hemolytic strep species. 2. Ely albicans urinary tract infection. 3. History of bladder tumor status post transurethral resection. 4. History of rheumatoid arthritis. PLAN: The patient remains stable. She is going to have partial cystectomy, cystoscopy, insertion of urethral catheter, as well as excision and removal of intra- abdominal and pelvic tumors. We will continue her on current abx Follow recommendations of consultants. Dictated By: Nicole Carlson NP /brandon/ca /Document#: [id number] JORGE
[2017-05-03 20:00] VITALS: BP 97/53; RESP 18
[2017-05-03] MEDS: ATORVASTATIN 20 MG TAB PO SCH (20:57)
[2017-05-04 02:30] VITALS: BP 120/61; RESP 18
[2017-05-04] MEDS: morphine 4 MG/ML VIAL IV PRN (02:38)
[2017-05-04] MEDS: DEXTROSE 5%-0.45% NACL 1,000 ML IV SCH ×3 (02:42→18:16)
[2017-05-04 06:30] LABS: BASOPHILS % 0.3 % (0.0-2.0); EOSINOPHILS # 0.1 10^3/ul (0.0-0.5); EOSINOPHILS % 1.2 % (0.0-7.0); HEMOGLOBIN 9.8 g/dl (12.0-16.0); LYMPHOCYTES # 1.4 10^3/ul (0.8-2.9); LYMPHOCYTES % 23.2 % (15.0-51.0); MEAN CORPUSCULAR HEMOGLOBIN 28.7 pg (29.0-33.0); MEAN CORPUSCULAR HGB CONC 30.6 g/dl (32.0-37.0); MEAN CORPUSCULAR VOLUME 93.8 fl (82.0-101.0); MEAN PLATELET VOLUME 9.5 fl (7.4-10.4); MONOCYTE # 0.7 10^3/ul (0.3-0.9); MONOCYTES % 11.5 % (0.0-11.0); NEUTROPHIL # 3.9 10^3/ul (1.6-7.5); NEUTROPHILS % 63.5 % (39.0-77.0); PLATELET COUNT 303 10^3/UL (140-415); RED BLOOD COUNT 3.41 10^6/ul (4.20-5.40); RED CELL DISTRIBUTION WIDTH 15.3 % (11.5-14.5); WHITE BLOOD COUNT 6.1 10^3/ul (4.8-10.8)
[2017-05-04 07:11] LABS: CALCIUM 8.9 mg/dl (8.4-10.2); CREATININE 0.4 mg/dl (0.44-1.00); POTASSIUM 4.2 mmol/L (3.5-5.1)
[2017-05-04 08:19] LABS: MAGNESIUM 1.8 mg/dl (1.7-2.5); PHOSPHORUS 3.5 mg/dl (2.5-4.9)
[2017-05-04] MEDS: SULFASALAZINE 500 MG TAB PO SCH ×4 (09:40→20:44)
[2017-05-04] MEDS: MULTIVITAMINS THERAPEUTIC TAB PO SCH (09:40)
[2017-05-04] MEDS: FOLIC ACID 1 MG TAB PO SCH (09:40)
[2017-05-04] MEDS: PRIMIDONE 250 MG TAB PO SCH ×3 (09:40→20:44)
[2017-05-04] MEDS: METHYLPREDNISOLONE 40 MG INJ IV SCH (09:40)
[2017-05-04] MEDS: LEVETIRACETAM 500 MG (PMX) 100 ML IVPB SCH ×2 (09:40→20:44)
[2017-05-04] MEDS: TERIPARATIDE 600 MCG/2.4 ML SC SCH (09:48)
--- NOTE | 2017-05-04 10:47 | PN ---
Date/Time of Note Date/Time of Note DATE: 05/04/17 TIME: 10:44 Assessment/Plan Lines/Catheters IV Catheter Type (from [facility]): Peripheral IV Stubbs in Place (from [facility]): No Assessment/Plan Chief Complaint/Hosp Course 1. 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 UTI: multiorganism pathogens; no dysuria -abx per sensitivity 3.Normocytic anemia: no acute bleed noted; h/h stable -monitor -transfuse as needed 4. History of pelvic ca, brain tumor: concern for recurrence; no evidence of pulm mets per CT -as above -per onc Patient seen and examined in collaboration with Dr. Jonatan De Los Santos. Thank you. Problems: Subjective 24 Hr Interval Summary Feeling well. No acute changes since yesterday. No pain/discomfort in pelvic area. +bowel function. No fevers, chills, cp, cough, n/v/d/dysuria. Exam/Review of Systems Vital Signs Vitals Vital Signs Date Time Temp Pulse Resp B/P Pulse Ox O2 Delivery O2 Flow Rate FiO2 05/04/17 02:30 97.8 72 18 120/61 100 Intake and Output 05/03/17 05/03/17 05/04/17 15:00 23:00 07:00 Intake Total 600 ml 2010 ml 1200 ml Output Total 1150 ml Balance 600 ml 860 ml 1200 ml Exam Free Text/Dictation Constitutional: alert, oriented, pleasant, prepared for surgery Psych: anxiety, no complaints Head: atraumatic, normocephalic Eyes: nl lids, nl sclera ENMT: mucosa pink and moist, nl nasal mucosa & septum Neck: non-tender, supple Respiratory: clear to auscultation, normal air movement Cardiovascular: regular rate and rhythm, No edema Gastrointestinal: mass (palpable mass in suprapubic region), soft, non tender, rotund, bowel sounds x4 quads : no dysuria, hematuria Musculoskeletal: nl extremities to inspection, nl gait and stance Extremities: normal pulses, No edema 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: nl mental status, nl speech, nl strength Lymph: No nl lymph nodes Results Result Diagram: 05/04/17 0613 05/04/17 0613 JENIFER CABAN NP May 04, 2017 10:47
--- NOTE | 2017-05-04 12:42 | CONS ---
Date/Time of Note Date/Time of Note DATE: 05/04/17 TIME: 12:39 Assessment/Plan Assessment/Plan Chief Complaint/Hosp Course History of brain tumor History of pelvic mass Large diverticular abscess CT- Findings suggestive of large diverticular abscess in the central pelvis, measuring approximately 11 cm in maximal dimension. No bowel obstruction or free intraperitoneal air is identified. Sepsis, stable UTI Anemia History of seizure disorder Severe rheumatoid arthritis Sjogren's syndrome Problems: Consultation Date/Type/Reason Admit Date/Time Apr 23, 2017 at 20:40 Initial Consult Date 04/28/17 Type of Consultation: hemeon Referring Provider: SHARON GIRALDO MD 24 HR Interval Summary Free Text/Dictation PT IS BEING FOLLOWED BY DR RICHMOND Exam/Review of Systems Vital Signs Vitals Vital Signs Date Time Temp Pulse Resp B/P Pulse Ox O2 Delivery O2 Flow Rate FiO2 05/04/17 02:30 97.8 72 18 120/61 100 Intake and Output 05/03/17 05/03/17 05/04/17 15:00 23:00 07:00 Intake Total 600 ml 2010 ml 1200 ml Output Total 1150 ml Balance 600 ml 860 ml 1200 ml Results Result Diagram: 05/04/17 0613 05/04/17 0613 Results 24 hrs Laboratory Tests Test 05/04/17 06:13 White Blood Count 6.1 Red Blood Count 3.41 L Hemoglobin 9.8 L Hematocrit 32.0 L Mean Corpuscular Volume 93.8 Mean Corpuscular Hemoglobin 28.7 L Mean Corpuscular Hemoglobin Concent 30.6 L Red Cell Distribution Width 15.3 H Platelet Count 303 Mean Platelet Volume 9.5 Neutrophils % 63.5 Lymphocytes % 23.2 Monocytes % 11.5 H Eosinophils % 1.2 Basophils % 0.3 Nucleated Red Blood Cells % 0.0 Neutrophils # 3.9 Lymphocytes # 1.4 Monocytes # 0.7 Eosinophils # 0.1 Basophils # 0.0 Nucleated Red Blood Cells # 0.0 Sodium Level 140 Potassium Level 4.2 Chloride Level 106 Carbon Dioxide Level 27 Anion Gap 11 Blood Urea Nitrogen 4 L Creatinine 0.40 L Glucose Level 103 Calcium Level 8.9 Phosphorus Level 3.5 Magnesium Level 1.8 Medications Medications Current Medications Dextrose/Sodium Chloride (D5-1/2ns) 1,000 ml @ 100 mls/hr Q10H IV Last administered on 05/04/17t 02:42; Admin Dose 100 MLS/HR; Start 04/23/17 at 22:30 Ondansetron HCl (Zofran Inj) 4 mg Q6H PRN IV NAUSEA AND/OR VOMITING; Start 04/23 at 22:30 Morphine Sulfate (morphine) 3 mg Q4H PRN IV PAIN Last administered on 02:38; Admin Dose 3 MG; Start 04/23/17 at 22:30 Lorazepam (Ativan) 2 mg Q10MIN PRN IV seizure; Start 04/24/17 at 11:00 Methylprednisolone Sodium Succinate (Solu-Medrol) 20 mg DAILY IV Last administered on 05/04/17 09:40; Admin Dose 20 MG; Start 04/24/17 at 11:30 Folic Acid (Folic Acid) 1 mg DAILY PO Last administered on 05/04/17 09:40; Admin Dose 1 MG; Start 04/24/17 at 14:30 Multivitamins Therapeutic (Theragran) 1 tab DAILY PO Last administered on 09:40; Admin Dose 1 TAB; Start 04/24/17 at 14:30 Primidone (Mysoline) 250 mg TID PO Last administered on 05/04/17 12:30; Admin Dose 250 MG; Start 04/24/17 at 15:00 Sulfasalazine (Azulfidine) 500 mg QID PO Last administered on 05/04/17 12:30; Admin Dose 500 MG; Start 04/24/17 at 17:00 Atorvastatin Calcium (Lipitor) 20 mg DAILY@21 PO Last administered on 20:57; Admin Dose 20 MG; Start 04/24/17 at 21:00 Non-Formulary Medication 1 DOSE = 20 mcg/ 0.08ml DAILY SC Last administered on 05/04/17 09:48; Admin Dose 1 EA; Start 04/25/17 at 09:00 Levetiracetam 100 ml @ 400 mls/hr Q12 IVPB Last administered on 05/04/17 09: 40; Admin Dose 400 MLS/HR; Start 04/30/17 at 21:00 Ceftriaxone Sodium (Rocephin) 50 ml @ 100 mls/hr Q24H IVPB Last administered on 05/03/17 16:42; Admin Dose 100 MLS/HR; Start 05/03/17 at 17:00 ACE GOMEZ MD May 04, 2017 12:41
[2017-05-04 14:55] VITALS: BP 104/56; RESP 19
--- NOTE | 2017-05-04 15:08 | PN ---
Date/Time of Note Date/Time of Note DATE: 05/04/17 TIME: 15:00 Assessment/Plan VTE Prophylaxis VTE Prophylaxis Intervention: SCD's Lines/Catheters IV [facility] Type (from [facility]): Peripheral IV Urinary Cath still in place: No Assessment/Plan Chief Complaint/Hosp Course Assessment and plan 1. 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 continue antibiotics. status post CT-guided biopsy of lesion in area. She did also have transurethral resection of the bladder tumors on April 29, 2017. 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 Tentative plan for partial cystectomy in addition to removal of pelvic tumor likely located outside of the bladder. Follow-up with surgeon and urologist recommendations. 2. UTI. Continue antibiotics per ID recommendations. 3. Seizure disorder. Continue on Keppra. Stable at present. 4. History of rheumatoid arthritis. Continue with analgesics as needed 5. Sjogren's syndrome. Stable at present. Will monitor 6. History of brain tumor. Patient is status post resection. No active issue at this time. Will monitor. Disposition and plan: Tentative plan for surgical intervention for removal of pelvic tumor. Follow-up with urologist and surgeon recommendations. Discussed plan of care with Dr. Guardado Problems: Subjective 24 Hr Interval Summary Free Text/Dictation Denies any pain at this time. Sitting in chair. Family at bedside. Appears comfortable at present. Exam/Review of Systems Vital Signs Vitals Vital Signs Date Time Temp Pulse Resp B/P Pulse Ox O2 Delivery O2 Flow Rate FiO2 05/04/17 14:55 98.9 78 19 104/56 98 Intake and Output 05/03/17 05/03/17 05/04/17 15:00 23:00 07:00 Intake Total 600 ml 2010 ml 1200 ml Output Total 1150 ml Balance 600 ml 860 ml 1200 ml Exam Constitutional: alert, oriented Psych: nl mood/affect Head: normocephalic Respiratory: normal air movement Cardiovascular: regular rate and rhythm Gastrointestinal: non-tender, soft Musculoskeletal: nl extremities to inspection Extremities: normal pulses 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: CURVE CLEANER II-XII intact, nl mental status, nl speech Skin: nl turgor Results Result Diagram: 05/04/17 0613 05/04/17 0613 Results 24 hrs Laboratory Tests Test 05/04/17 06:13 White Blood Count 6.1 Red Blood Count 3.41 L Hemoglobin 9.8 L Hematocrit 32.0 L Mean Corpuscular Volume 93.8 Mean Corpuscular Hemoglobin 28.7 L Mean Corpuscular Hemoglobin Concent 30.6 L Red Cell Distribution Width 15.3 H Platelet Count 303 Mean Platelet Volume 9.5 Neutrophils % 63.5 Lymphocytes % 23.2 Monocytes % 11.5 H Eosinophils % 1.2 Basophils % 0.3 Nucleated Red Blood Cells % 0.0 Neutrophils # 3.9 Lymphocytes # 1.4 Monocytes # 0.7 Eosinophils # 0.1 Basophils # 0.0 Nucleated Red Blood Cells # 0.0 Sodium Level 140 Potassium Level 4.2 Chloride Level 106 Carbon Dioxide Level 27 Anion Gap 11 Blood Urea Nitrogen 4 L Creatinine 0.40 L Glucose Level 103 Calcium Level 8.9 Phosphorus Level 3.5 Magnesium Level 1.8 Medications Medications Current Medications Dextrose/Sodium Chloride (D5-1/2ns) 1,000 ml @ 100 mls/hr Q10H IV Last administered on 05/04/17 14:32; Admin Dose 100 MLS/HR; Start 04/23/17 at 22:30 Ondansetron HCl (Zofran Inj) 4 mg Q6H PRN IV NAUSEA AND/OR VOMITING; Start 04/23 at 22:30 Morphine Sulfate (morphine) 3 mg Q4H PRN IV PAIN Last administered on 02:38; Admin Dose 3 MG; Start 04/23/17 at 22:30 Lorazepam (Ativan) 2 mg Q10MIN PRN IV seizure; Start 04/24/17 at 11:00 Methylprednisolone Sodium Succinate (Solu-Medrol) 20 mg DAILY IV Last administered on 05/04/17 09:40; Admin Dose 20 MG; Start 04/24/17 at 11:30 Folic Acid (Folic Acid) 1 mg DAILY PO Last administered on 05/04/17 09:40; Admin Dose 1 MG; Start 04/24/17 at 14:30 Multivitamins Therapeutic (Theragran) 1 tab DAILY PO Last administered on 09:40; Admin Dose 1 TAB; Start 04/24/17 at 14:30 Primidone (Mysoline) 250 mg TID PO Last administered on 05/04/17 12:30; Admin Dose 250 MG; Start 04/24/17 at 15:00 Sulfasalazine (Azulfidine) 500 mg QID PO Last administered on 05/04/17 12:30; Admin Dose 500 MG; Start 04/24/17 at 17:00 Atorvastatin Calcium (Lipitor) 20 mg DAILY@21 PO Last administered on 20:57; Admin Dose 20 MG; Start 04/24/17 at 21:00 Non-Formulary Medication 1 DOSE = 20 mcg/ 0.08ml DAILY SC Last administered on 05/04/17 09:48; Admin Dose 1 EA; Start 04/25/17 at 09:00 Levetiracetam 100 ml @ 400 mls/hr Q12 IVPB Last administered on 05/04/17 09: 40; Admin Dose 400 MLS/HR; Start 04/30/17 at 21:00 Ceftriaxone Sodium 50 ml @ 100 mls/hr Q24H IVPB Last administered on 16:42; Admin Dose 100 MLS/HR; Start 05/03/17 at 17:00 Fluconazole/ Sodium Chloride (Diflucan 100 Mg/ NS (Pmx)) 50 ml @ 50 mls/hr Q24H IVPB ; Start 05/04/17 at 16:30 WALTER PINA May 04, 2017 15:07
[2017-05-04] MEDS: FLUCONAZOLE 100 MG/NS (PMX) 50 ML IVPB SCH (17:29)
[2017-05-04] MEDS: CEFTRIAXONE 1 GM/50 ML (PMX) 50 ML IVPB SCH (18:16)
--- NOTE | 2017-05-04 19:24 | PN ---
Date/Time of Note Date/Time of Note DATE: 05/04/17 TIME: 19:18 Assessment/Plan VTE Prophylaxis VTE Prophylaxis Intervention: ambulation Lines/Catheters IV [facility] Type (from [facility] Peripheral IV Urinary Cath still in place: No Assessment/Plan Chief Complaint/Hosp Course Pelvic tumor, recurrent in the same location as the one she was operated on in 2011. Patient is status post transurethral resection of the bladder tumor. The pathology report : PRELIMINARY MICROSCOPIC DIAGNOSIS: Bladder tumor: -- Mucinous adenocarcinoma, well-differentiated, with extensive calcification. -- Muscularis propria is not present in the specimen. COMMENT: This patient had previous removal of a pelvic tumor diagnosed as mucinous adenocarcinoma, low grade ([facility] case no. [id number]; 10/29/11). Tumor in the current specimen is histologically identical to the previously diagnosed mucinous carcinoma. 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 A limited panel of immunohistochemical stains are in progress to further characterize the tumor and a final report will be issued following review of those stains. HUONG/[email or web address] Date of Service: 04/29/17; Date Received: 04/30/17 Dictated: 05/01/17; Transcribed: 05/01/17; Sent by Fax: 05/01/17; Reviewed: MATTHEW Calvo M.D. Pathologist Electronically Signed 05/01/2017 The plan is to do a cystoscopy insert bilateral ureteral catheters then together with Dr. Jonatan De Los Santos do excise the pelvic tumor and partial cystectomy since the tumor is at the dome of the bladder anteriorly. I did explain the procedure to the patient informed her that her bladder will be smaller and it may be small enough that she may have to go to the bathroom very often and even may be incontinent and may require an indwelling Stubbs catheter as mean of controlling her incontinence she did understand that and she is agreeable to proceed Problems: Subjective 24 Hr Interval Summary Constitutional: no complaints Eyes: no complaints ENT: no complaints Respiratory: no complaints Cardiovascular: no complaints, No chest pain Gastrointestinal: other (Lower abdominal pain) Genitourinary: dysuria (Mild) Musculoskeletal: no complaints Skin: no complaints Neurologic: no complaints Endocrine: no complaints Psychological: no complaints Exam/Review of Systems Vital Signs Vitals Vital Signs Date Time Temp Pulse Resp B/P Pulse Ox O2 Delivery O2 Flow Rate FiO2 05/04/17 14:55 98.9 78 19 104/56 98 Intake and Output 05/03/17 05/03/17 05/04/17 15:00 23:00 07:00 Intake Total 600 ml 2010 ml 1200 ml Output Total 1150 ml Balance 600 ml 860 ml 1200 ml Exam Constitutional: alert, oriented Psych: no complaints Head: normocephalic Eyes: nl conjunctiva ENMT: nl external ears & nose Neck: non-tender, supple Respiratory: normal air movement Cardiovascular: nl pulses Gastrointestinal: distended, other (Pelvic mass), surgical scars Genitourinary - Female: other (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), No CVA tenderness Musculoskeletal: nl extremities to inspection Extremities: No calf tenderness, No edema Skin: nl turgor Results Result Diagram: 05/04/1761205/04/1713 Results 24 hrs Laboratory Tests Test 05/04/17 06:13 White Blood Count 6.1 Red Blood Count 3.41 L Hemoglobin 9.8 L Hematocrit 32.0 L Mean Corpuscular Volume 93.8 Mean Corpuscular Hemoglobin 28.7 L Mean Corpuscular Hemoglobin Concent 30.6 L Red Cell Distribution Width 15.3 H Platelet Count 303 Mean Platelet Volume 9.5 Neutrophils % 63.5 Lymphocytes % 23.2 Monocytes % 11.5 H Eosinophils % 1.2 Basophils % 0.3 Nucleated Red Blood Cells % 0.0 Neutrophils # 3.9 Lymphocytes # 1.4 Monocytes # 0.7 Eosinophils # 0.1 Basophils # 0.0 Nucleated Red Blood Cells # 0.0 Sodium Level 140 Potassium Level 4.2 Chloride Level 106 Carbon Dioxide Level 27 Anion Gap 11 Blood Urea Nitrogen 4 L Creatinine 0.40 L Glucose Level 103 Calcium Level 8.9 Phosphorus Level 3.5 Magnesium Level 1.8 Medications Medications Current Medications Dextrose/Sodium Chloride (D5-1/2ns) 1,000 ml @ 100 mls/hr Q10H IV Last administered on 05/04/17 14:32; Admin Dose 100 MLS/HR; Start 04/23/17 at 22:30 Ondansetron HCl (Zofran Inj) 4 mg Q6H PRN IV NAUSEA AND/OR VOMITING; Start 04/23 at 22:30 Morphine Sulfate (morphine) 3 mg Q4H PRN IV PAIN Last administered on 02:38; Admin Dose 3 MG; Start 04/23/17 at 22:30 Lorazepam (Ativan) 2 mg Q10MIN PRN IV seizure; Start 04/24/17 at 11:00 Methylprednisolone Sodium Succinate (Solu-Medrol) 20 mg DAILY IV Last administered on 05/04/17 09:40; Admin Dose 20 MG; Start 04/24/17 at 11:30 Folic Acid (Folic Acid) 1 mg DAILY PO Last administered on 05/04/17 09:40; Admin Dose 1 MG; Start 04/24/17 at 14:30 Multivitamins Therapeutic (Theragran) 1 tab DAILY PO Last administered on 09:40; Admin Dose 1 TAB; Start 04/24/17 at 14:30 Primidone (Mysoline) 250 mg TID PO Last administered on 05/04/17 12:30; Admin Dose 250 MG; Start 04/24/17 at 15:00 Sulfasalazine (Azulfidine) 500 mg QID PO Last administered on 05/04/17 17:29; Admin Dose 500 MG; Start 04/24/17 at 17:00 Atorvastatin Calcium (Lipitor) 20 mg DAILY@21 PO Last administered on 20:57; Admin Dose 20 MG; Start 04/24/17 at 21:00 Non-Formulary Medication 1 DOSE = 20 mcg/ 0.08ml DAILY SC Last administered on 05/04/17 09:48; Admin Dose 1 EA; Start 04/25/17 at 09:00 Levetiracetam 100 ml @ 400 mls/hr Q12 IVPB Last administered on 05/04/17 09: 40; Admin Dose 400 MLS/HR; Start 04/30/17 at 21:00 Ceftriaxone Sodium 50 ml @ 100 mls/hr Q24H IVPB Last administered on 18:16; Admin Dose 100 MLS/HR; Start 05/03/17 at 17:00 Fluconazole/ Sodium Chloride (Diflucan 100 Mg/ NS (Pmx)) 50 ml @ 50 mls/hr Q24H IVPB Last administered on 05/04/17 17:29; Admin Dose 50 MLS/HR; Start at 16:30 TRESSA SIMMONS MD May 04, 2017 19:24
[2017-05-04 19:52] VITALS: BP 109/56; RESP 18
[2017-05-04] MEDS: ATORVASTATIN 20 MG TAB PO SCH (20:44)
[2017-05-04] MEDS ORDERED: PEG/ELECTROLYTES 4L BTL PO ONE (22:30)
[2017-05-05] VITALS (13 sets, daily range): BP systolic 86–114; BP diastolic 52–66; PULSE 84–110; RESP 18–27
[2017-05-05] MEDS: DEXTROSE 5%-0.45% NACL 1,000 ML IV SCH ×2 (03:04→13:38)
--- NOTE | 2017-05-05 04:16 | PN ---
DATE: 05/04/2017 SUBJECTIVE: No events overnight. The patient is alert, sitting up in a chair. Denies pain, discomfort, looks comfortable. ANTIMICROBIALS: Rocephin, fluconazole. MICROBIOLOGY: Intra-abdominal drainage culture grew Ely albicans and alpha-hemolytic strep species. Also, strep group D, not enterococcus. Urine culture on April 29 grew Ely albicans. OBJECTIVE DATA: GENERAL: A well-developed, middle-aged woman who is awake, in no distress. HEENT: Head atraumatic, normocephalic. Sclerae anicteric. Buccal mucosa dry. NECK: Supple. CHEST: Rise symmetrical. Breath sounds clear. HEART: S1, S2. ABDOMEN: Soft, bowel sounds present. The patient still has pain on the left side. EXTREMITIES: Without cyanosis. ASSESSMENT: 1. Pelvic abscess status post CT-guided drainage with culture growing fungus and streptococcus. Remains on appropriate antimicrobials. 2. Ely albicans urinary tract infection. 3. Pelvic mass and bladder tumor with biopsy demonstrating low-grade adenocarcinoma, mucin producing. 4. Rheumatoid arthritis. PLAN: The patient remains stable. Followed by multiple consultants. Pending surgical intervention this week. Dictated By: Riana Carlson NP /[email or web address] /Document#: [id number] JORGE
--- NOTE | 2017-05-05 04:17 | PN ---
DATE: 05/04/2017 SUBJECTIVE: Patient states she is feeling well. She has no new complaints. Appetite is good. She does not have nausea, vomiting, or abdominal pain. OBJECTIVE DATA: Patient is a well-developed female who is in no acute distress. VITAL SIGNS: Temperature 98.9, pulse 78 per minute and regular, respirations 19, blood pressure 105/56. Pulse oximetry 98 percent on room air. SKIN: No ecchymosis, no petechiae or rashes. HEENT: No mucosal lesions. No scleral icterus. NECK: Supple. No jugular venous distention. No thyroid enlargement. CHEST: Clear to auscultation and percussion. No rhonchi, wheezes, rales, or rubs. NODES: No palpable adenopathy in any lymph node-bearing area. ABDOMEN: Mildly distended. Ventral hernia. No palpable masses, but there continues to be fullness in the lower extremities. GENITOURINARY: Stubbs catheter is in place. EXTREMITIES: Good range of motion. No clubbing, edema, or cyanosis. There are changes consistent with the patient's rheumatoid arthritis. NEUROLOGIC: No focal neurologic abnormalities. LABORATORY AND DIAGNOSTIC DATA: White count is 6100, hemoglobin 9.8, hematocrit 32, and platelet count is 303,000. Pro time 13.9 seconds, INR 1.07, PTT 37.8 seconds. Sodium 142, potassium 4.2, BUN 4, creatinine 0.4. ASSESSMENT: 1. Pelvic mass, probably urachal carcinoma. 2. Rheumatoid arthritis. DISCUSSION: Patient is apparently scheduled for surgery on 05/05/2017. Patient is not scheduled until 6 p.m. I have cautioned the patient again not to eat after midnight. Dictated By: Titi Eid MD /[email or web address]/[email or web address] /Document#: [id number]
[2017-05-05 06:20] LABS: BASOPHILS % 0.4 % (0.0-2.0); EOSINOPHILS # 0.1 10^3/ul (0.0-0.5); EOSINOPHILS % 1.2 % (0.0-7.0); HEMATOCRIT 33.6 % (37.0-47.0); HEMOGLOBIN 10.5 g/dl (12.0-16.0); LYMPHOCYTES # 1.2 10^3/ul (0.8-2.9); LYMPHOCYTES % 24.5 % (15.0-51.0); MEAN CORPUSCULAR HEMOGLOBIN 29.5 pg (29.0-33.0); MEAN CORPUSCULAR HGB CONC 31.3 g/dl (32.0-37.0); MEAN CORPUSCULAR VOLUME 94.4 fl (82.0-101.0); MEAN PLATELET VOLUME 9.6 fl (7.4-10.4); MONOCYTE # 0.8 10^3/ul (0.3-0.9); MONOCYTES % 15.3 % (0.0-11.0); NEUTROPHILS % 58.4 % (39.0-77.0); PLATELET COUNT 329 10^3/UL (140-415); RED BLOOD COUNT 3.56 10^6/ul (4.20-5.40); WHITE BLOOD COUNT 4.9 10^3/ul (4.8-10.8)
[2017-05-05 06:51] LABS: CALCIUM 9.2 mg/dl (8.4-10.2); CREATININE 0.41 mg/dl (0.44-1.00); POTASSIUM 3.9 mmol/L (3.5-5.1)
[2017-05-05] MEDS: PRIMIDONE 250 MG TAB PO SCH ×3 (09:00→21:00)
[2017-05-05] MEDS: SULFASALAZINE 500 MG TAB PO SCH ×4 (09:00→21:00)
[2017-05-05] MEDS: MULTIVITAMINS THERAPEUTIC TAB PO SCH (09:00)
[2017-05-05] MEDS: FOLIC ACID 1 MG TAB PO SCH (09:00)
[2017-05-05] MEDS: METHYLPREDNISOLONE 40 MG INJ IV SCH (09:10)
[2017-05-05] MEDS: LEVETIRACETAM 500 MG (PMX) 100 ML IVPB SCH ×2 (09:10→21:00)
[2017-05-05] MEDS: TERIPARATIDE 600 MCG/2.4 ML SC SCH (09:11)
--- NOTE | 2017-05-05 12:34 | PN ---
Date/Time of Note Date/Time of Note DATE: 05/05/17 TIME: 12:32 Assessment/Plan VTE Prophylaxis VTE Prophylaxis Intervention: SCD's Lines/Catheters IV C[facility]ter Type (from [facility]): Peripheral IV Urinary Cath still in place: No Assessment/Plan Chief Complaint/Hosp Course Assessment and plan 1. 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 continue antibiotics. status post CT-guided biopsy of lesion in area. She did also have transurethral resection of the bladder tumors on April 29, 2017. 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 Tentative plan for partial cystectomy in addition to removal of pelvic tumor likely located outside of the bladder. Follow-up with surgeon and urologist recommendations. 2. UTI. Continue antibiotics per ID recommendations. 3. Seizure disorder. Continue on Keppra. Stable at present. 4. History of rheumatoid arthritis. Continue with analgesics as needed 5. Sjogren's syndrome. Stable at present. Will monitor 6. History of brain tumor. Patient is status post resection. No active issue at this time. Will monitor. Disposition and plan: Tentative plan for surgical intervention today. Will follow postop and check labs in a.m. Discussed plan of care with Dr. Guardado Problems: Subjective 24 Hr Interval Summary Free Text/Dictation No reports of abdominal pain at this time. Exam/Review of Systems Vital Signs Vitals Vital Signs Date Time Temp Pulse Resp B/P Pulse Ox O2 Delivery O2 Flow Rate FiO2 05/05/17 07:48 97.7 77 18 109/66 99 Intake and Output 05/04/17 05/04/17 05/05/17 15:00 23:00 07:00 Intake Total 700 ml 1400 ml 5080 ml Output Total 800 ml 350 ml Balance 700 ml 600 ml 4730 ml Exam Constitutional: alert, oriented Psych: nl mood/affect Head: normocephalic Respiratory: normal air movement Cardiovascular: regular rate and rhythm Gastrointestinal: non-tender, soft Musculoskeletal: nl extremities to inspection Extremities: normal pulses 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: WATCH DIAL STONER II-XII intact, nl mental status, nl speech Skin: nl turgor Results Result Diagram: 05/05/17 0548 05/05/17 0548 Results 24 hrs Laboratory Tests Test 05/05/17 05:48 White Blood Count 4.9 Red Blood Count 3.56 L Hemoglobin 10.5 L Hematocrit 33.6 L Mean Corpuscular Volume 94.4 Mean Corpuscular Hemoglobin 29.5 Mean Corpuscular Hemoglobin Concent 31.3 L Red Cell Distribution Width 15.0 H Platelet Count 329 Mean Platelet Volume 9.6 Neutrophils % 58.4 Lymphocytes % 24.5 Monocytes % 15.3 H Eosinophils % 1.2 Basophils % 0.4 Nucleated Red Blood Cells % 0.0 Neutrophils # (Manual) 2.9 Lymphocytes # 1.2 Monocytes # 0.8 Eosinophils # 0.1 Basophils # 0.0 Nucleated Red Blood Cells # 0.0 Sodium Level 141 Potassium Level 3.9 Chloride Level 103 Carbon Dioxide Level 29 Anion Gap 13 Blood Urea Nitrogen 6 L Creatinine 0.41 L Glucose Level 114 Calcium Level 9.2 Magnesium Level 1.6 L Medications Medications Current Medications Dextrose/Sodium Chloride (D5-1/2ns) 1,000 ml @ 100 mls/hr Q10H IV Last administered on 05/05/17 03:04; Admin Dose 100 MLS/HR; Start 04/23/17 at 22:30 Ondansetron HCl (Zofran Inj) 4 mg Q6H PRN IV NAUSEA AND/OR VOMITING; Start 04/23 at 22:30 Morphine Sulfate (morphine) 3 mg Q4H PRN IV PAIN Last administered on 02:38; Admin Dose 3 MG; Start 04/23/17 at 22:30 Lorazepam (Ativan) 2 mg Q10MIN PRN IV seizure; Start 04/24/17 at 11:00 Methylprednisolone Sodium Succinate (Solu-Medrol) 20 mg DAILY IV Last administered on 05/05/17 09:10; Admin Dose 20 MG; Start 04/24/17 at 11:30 Folic Acid (Folic Acid) 1 mg DAILY PO Last administered on 05/04/17 09:40; Admin Dose 1 MG; Start 04/24/17 at 14:30 Multivitamins Therapeutic (Theragran) 1 tab DAILY PO Last administered on 09:40; Admin Dose 1 TAB; Start 04/24/17 at 14:30 Primidone (Mysoline) 250 mg TID PO Last administered on 05/04/17 20:44; Admin Dose 250 MG; Start 04/24/17 at 15:00 Sulfasalazine (Azulfidine) 500 mg QID PO Last administered on 05/04/17 20:44; Admin Dose 500 MG; Start 04/24/17 at 17:00 Atorvastatin Calcium (Lipitor) 20 mg DAILY@21 PO Last administered on 20:44; Admin Dose 20 MG; Start 04/24/17 at 21:00 Non-Formulary Medication 1 DOSE = 20 mcg/ 0.08ml DAILY SC Last administered on 05/05/17 09:11; Admin Dose 1 EA; Start 04/25/17 at 09:00 Levetiracetam 100 ml @ 400 mls/hr Q12 IVPB Last administered on 05/05/17 09: 10; Admin Dose 400 MLS/HR; Start 04/30/17 at 21:00 Ceftriaxone Sodium 50 ml @ 100 mls/hr Q24H IVPB Last administered on 18:16; Admin Dose 100 MLS/HR; Start 05/03/17 at 17:00 Fluconazole/ Sodium Chloride (Diflucan 100 Mg/ NS (Pmx)) 50 ml @ 50 mls/hr Q24H IVPB Last administered on 05/04/17 17:29; Admin Dose 50 MLS/HR; Start at 16:30 WALTER PINA May 05, 2017 12:34
--- NOTE | 2017-05-05 14:08 | PN ---
Date/Time of Note Date/Time of Note DATE: 05/05/17 TIME: 13:59 Assessment/Plan Lines/Catheters IV Catheter Type (from [facility]): Peripheral IV Stubbs in Place (from [facility]): No Assessment/Plan Chief Complaint/Hosp Course 1. Central pelvic abscess: significant history of pelvic cancer: Bladder tumor most likely urachal carcinoma; s/p ir drain, mucinous fluid: danika; s/p Transurethral resection of bladder tumor -Surgery pending today -follow path -danika growing: antifungals per ID 2. UTI: multiorganism pathogens -abx per sensitivity 3.Normocytic anemia: no acute bleed noted -monitor -transfuse as needed 4. History of pelvic ca, brain tumor: concern for recurrence -as above -per onc 6. Hypernatremia: normalized Patient seen and examined in collaboration with Dr. Jonatan De Los Santos. Thank you. Problems: Subjective 24 Hr Interval Summary Bowel prep continued. Feels ok. Pending surgery today. No abdominal pain/ discomfort. No fevers, chills, cp, palpitations, n/v/d/dysuria. Exam/Review of Systems Vital Signs Vitals Vital Signs Date Time Temp Pulse Resp B/P Pulse Ox O2 Delivery O2 Flow Rate FiO2 05/05/17 13:33 98.0 68 20 108/57 97 Intake and Output 05/04/17 05/04/17 05/05/17 15:00 23:00 07:00 Intake Total 700 ml 1400 ml 5080 ml Output Total 800 ml 350 ml Balance 700 ml 600 ml 4730 ml Exam Free Text/Dictation Constitutional: alert, oriented, pleasant, Psych: anxiety, no complaints Head: atraumatic, normocephalic Eyes: nl lids, nl sclera ENMT: mucosa pink and moist, nl nasal mucosa & septum Neck: non-tender, supple Respiratory: clear to auscultation, normal air movement Cardiovascular: regular rate and rhythm, No edema Gastrointestinal: mass (palpable mass in suprapubic region), soft, non tender, rotund, bowel sounds x4 quads : no dysuria, hematuria Musculoskeletal: nl extremities to inspection, nl gait and stance Extremities: normal pulses, No edema 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: nl mental status, nl speech, nl strength Lymph: No nl lymph nodes Results Result Diagram: 05/05/1754705/05/1748 JENIFER CABAN NP May 05, 2017 14:08
[2017-05-05 14:52] LABS: INR 0.97; PROTIME 12.9 Sec (12.2-14.2)
--- NOTE | 2017-05-05 15:47 | CONS ---
Date/Time of Note Date/Time of Note DATE: 05/05/17 TIME: 15:45 Assessment/Plan Assessment/Plan Chief Complaint/Hosp Course SUBJECTIVE: No events overnight. Awake, looks comfortable, no fevers ANTIMICROBIALS: Rocephin, fluconazole. MICROBIOLOGY: Intra-abdominal drainage culture grew Ely albicans and alpha-hemolytic strep species. Also, strep group D, not enterococcus. Urine culture on April 29 grew Ely albicans. GENERAL: A well-developed, middle-aged woman who is awake, in no distress. HEENT: Head atraumatic, normocephalic. Sclerae anicteric. Buccal mucosa dry. NECK: Supple. CHEST: Rise symmetrical. Breath sounds clear. HEART: S1, S2. ABDOMEN: Soft, bowel sounds present. The patient still has pain on the left side. EXTREMITIES: Without cyanosis. ASSESSMENT: 1. Pelvic abscess status post CT-guided drainage with culture growing fungus and streptococcus. Remains on appropriate antimicrobials. 2. Ely albicans urinary tract infection. 3. . Pelvic mass and bladder tumor. 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 4. Rheumatoid arthritis. PLAN: The patient remains stable. Pending surgery this week, f/u surgical/ oncology rec-s [facility] staff Problems: Consultation Date/Type/Reason Admit Date/Time Apr 23, 2017 at 20:40 Initial Consult Date 04/28/17 Type of Consultation: id Referring Provider: SHARON GIRALDO MD Exam/Review of Systems Vital Signs Vitals Vital Signs Date Time Temp Pulse Resp B/P Pulse Ox O2 Delivery O2 Flow Rate FiO2 05/05/17 13:33 98.0 68 20 108/57 97 Intake and Output 05/04/17 05/04/17 05/05/17 15:00 23:00 07:00 Intake Total 700 ml 1400 ml 5080 ml Output Total 800 ml 350 ml Balance 700 ml 600 ml 4730 ml Results Result Diagram: 05/05/17 0548 05/05/17 0548 Results 24 hrs Laboratory Tests Test 05/05/17 05:48 05/05/17 14:21 White Blood Count 4.9 Red Blood Count 3.56 L Hemoglobin 10.5 L Hematocrit 33.6 L Mean Corpuscular Volume 94.4 Mean Corpuscular Hemoglobin 29.5 Mean Corpuscular Hemoglobin Concent 31.3 L Red Cell Distribution Width 15.0 H Platelet Count 329 Mean Platelet Volume 9.6 Neutrophils % 58.4 Lymphocytes % 24.5 Monocytes % 15.3 H Eosinophils % 1.2 Basophils % 0.4 Nucleated Red Blood Cells % 0.0 Neutrophils # (Manual) 2.9 Lymphocytes # 1.2 Monocytes # 0.8 Eosinophils # 0.1 Basophils # 0.0 Nucleated Red Blood Cells # 0.0 Sodium Level 141 Potassium Level 3.9 Chloride Level 103 Carbon Dioxide Level 29 Anion Gap 13 Blood Urea Nitrogen 6 L Creatinine 0.41 L Glucose Level 114 Calcium Level 9.2 Magnesium Level 1.6 L Prothrombin Time 12.9 Prothrombin Time Ratio 1.0 INR International Normalized Ratio 0.97 Medications Medications Current Medications Dextrose/Sodium Chloride (D5-1/2ns) 1,000 ml @ 100 mls/hr Q10H IV Last administered on 05/05/17 13:38; Admin Dose 100 MLS/HR; Start 04/23/17 at 22:30 Ondansetron HCl (Zofran Inj) 4 mg Q6H PRN IV NAUSEA AND/OR VOMITING; Start 04/23 at 22:30 Morphine Sulfate (morphine) 3 mg Q4H PRN IV PAIN Last administered on 02:38; Admin Dose 3 MG; Start 04/23/17 at 22:30 Lorazepam (Ativan) 2 mg Q10MIN PRN IV seizure; Start 04/24/17 at 11:00 Methylprednisolone Sodium Succinate (Solu-Medrol) 20 mg DAILY IV Last administered on 05/05/17 09:10; Admin Dose 20 MG; Start 04/24/17 at 11:30 Folic Acid (Folic Acid) 1 mg DAILY PO Last administered on 05/04/17 09:40; Admin Dose 1 MG; Start 04/24/17 at 14:30 Multivitamins Therapeutic (Theragran) 1 tab DAILY PO Last administered on 09:40; Admin Dose 1 TAB; Start 04/24/17 at 14:30 Primidone (Mysoline) 250 mg TID PO Last administered on 05/04/17 20:44; Admin Dose 250 MG; Start 04/24/17 at 15:00 Sulfasalazine (Azulfidine) 500 mg QID PO Last administered on 05/04/17 20:44; Admin Dose 500 MG; Start 04/24/17 at 17:00 Atorvastatin Calcium (Lipitor) 20 mg DAILY@21 PO Last administered on 20:44; Admin Dose 20 MG; Start 04/24/17 at 21:00 Non-Formulary Medication 1 DOSE = 20 mcg/ 0.08ml DAILY SC Last administered on 05/05/17 09:11; Admin Dose 1 EA; Start 04/25/17 at 09:00 Levetiracetam 100 ml @ 400 mls/hr Q12 IVPB Last administered on 05/05/17 09: 10; Admin Dose 400 MLS/HR; Start 04/30/17 at 21:00 Ceftriaxone Sodium 50 ml @ 100 mls/hr Q24H IVPB Last administered on 18:16; Admin Dose 100 MLS/HR; Start 05/03/17 at 17:00 Fluconazole/ Sodium Chloride (Diflucan 100 Mg/ NS (Pmx)) 50 ml @ 50 mls/hr Q24H IVPB Last administered on 05/04/17 17:29; Admin Dose 50 MLS/HR; Start at 16:30 JENNA SAAVEDRA NP May 05, 2017 15:47
[2017-05-05] MEDS: FLUCONAZOLE 100 MG/NS (PMX) 50 ML IVPB SCH (16:30)
[2017-05-05] MEDS: CEFTRIAXONE 1 GM/50 ML (PMX) 50 ML IVPB SCH (17:00)
--- NOTE | 2017-05-05 17:42 | HPN ---
Date/Time of Note Date/Time of Note DATE: 05/05/17 TIME: 17:41 Interval H&P Admission Note Pt. seen H&P reviewed: No system changes TRESSA SIMMONS MD May 05, 2017 17:41
[2017-05-05] MEDS ORDERED: NEOSTIGMINE 3 MG/3 ML SYRINGE ONE (18:55)
[2017-05-05] MEDS ORDERED: LIDOCAINE 2% (SDV) 5 ML INJ ONE (18:55)
[2017-05-05] MEDS ORDERED: MEPERIDINE 100 MG INJ ONE (18:55)
[2017-05-05] MEDS ORDERED: SUCCINYLCHOLINE CHLORIDE 100 MG/5 ML SYG IV ONE (18:55)
[2017-05-05] MEDS ORDERED: ROCURONIUM 50 MG INJ ONE ×2 (18:55→23:08)
[2017-05-05] MEDS ORDERED: GLYCOPYRROLATE 0.4 MG INJ ONE ×2 (18:55→23:08)
[2017-05-05] MEDS ORDERED: PROPOFOL 20 ML ONE (18:55)
[2017-05-05] MEDS ORDERED: CEFAZOLIN 1 GM INJ ONE (19:45)
[2017-05-05] MEDS ORDERED: metroNIDAZOLE 500 MG/NS (PMX) 100 ML IVPB ONE (19:45)
[2017-05-05] MEDS ORDERED: FENTAnyl 50 MCG/ML VIAL ONE (20:42)
[2017-05-05] MEDS ORDERED: PHENYLephrine (100 MCG/ML) 5ML SYG ONE (20:44)
[2017-05-05] MEDS: ATORVASTATIN 20 MG TAB PO SCH (21:00)
[2017-05-05 22:17] LABS: BASOPHILS % 0.2 % (0.0-2.0); EOSINOPHILS % 0.2 % (0.0-7.0); HEMATOCRIT 32.1 % (37.0-47.0); HEMOGLOBIN 10.1 g/dl (12.0-16.0); LYMPHOCYTES # 2.6 10^3/ul (0.8-2.9); LYMPHOCYTES % 30.5 % (15.0-51.0); MEAN CORPUSCULAR HEMOGLOBIN 29.7 pg (29.0-33.0); MEAN CORPUSCULAR HGB CONC 31.5 g/dl (32.0-37.0); MEAN CORPUSCULAR VOLUME 94.4 fl (82.0-101.0); MEAN PLATELET VOLUME 9.8 fl (7.4-10.4); MONOCYTE # 0.6 10^3/ul (0.3-0.9); MONOCYTES % 7.4 % (0.0-11.0); NEUTROPHILS % 61.2 % (39.0-77.0); PLATELET COUNT 334 10^3/UL (140-415); RED CELL DISTRIBUTION WIDTH 15.2 % (11.5-14.5); WHITE BLOOD COUNT 8.5 10^3/ul (4.8-10.8)
[2017-05-05 22:28] LABS: INR 1.06; PROTIME 13.8 Sec (12.2-14.2); PT RATIO 1.1
[2017-05-05 22:29] LABS: PARTIAL THROMBOPLASTIN TIME 32.6 Sec (25.0-35.0)
[2017-05-05] MEDS ORDERED: METOCLOPRAMIDE 10 MG INJ ONE (22:59)
[2017-05-05] MEDS ORDERED: ONDANSETRON 4 MG INJ ONE (22:59)
[2017-05-05] MEDS ORDERED: hydrALAzine 20 MG INJ IV PRN (23:00)
[2017-05-05] MEDS ORDERED: MIDAZOLAM 1 MG/ML 2 ML INJ IV PRN (23:00)
[2017-05-05] MEDS ORDERED: FENTAnyl 50 MCG/ML VIAL IV PRN ×3 (23:00)
[2017-05-05] MEDS ORDERED: OXYCODONE/ACETAMINOPHEN (5/325) TAB PO PRN ×2 (23:00)
[2017-05-05] MEDS ORDERED: LABETALOL HCL 20MG INJ IV PRN (23:00)
[2017-05-05] MEDS ORDERED: ONDANSETRON 4 MG INJ IV PRN (23:00)
[2017-05-05] MEDS ORDERED: METOCLOPRAMIDE 10 MG INJ IV PRN (23:00)
[2017-05-05] MEDS ORDERED: EPHEDrine SULFATE 50 MG/5 ML SYG IV PRN (23:00)
[2017-05-05] MEDS ORDERED: MEPERIDINE 25 MG INJ IV PRN (23:00)
[2017-05-05] MEDS ORDERED: HYDROmorphONE (0.2 MG/ML) 10ML SYG IV PRN ×3 (23:00)
[2017-05-05] MEDS ORDERED: DIPHENHYDRAMINE 50 MG INJ IV PRN (23:00)
--- NOTE | 2017-05-05 23:41 | OPR ---
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 Exploratory laparotomy with extensive lysis of adhesions 2. Repair of colotomy 3. Implantation of biologic over the colon repair and bladder repair 4. Excision of pelvic cystic lesion. 11 x 9 cm 5. Excision of previous scar and excessive abdominal skin and fat 6. (Partial cystectomy - primary surgeon with me as assistant store leader) 7. (Cystoscopy and bilateral ureteral stent placement -primary surgeon Dr. iSmmons with ky as assistant store leader) Surgeon: DIEGO YUEN MD Composition Board Press Operator: TRESSA SIMMONS MD Anesthesia Type: general Anesthesiologist: ARBEN KAPLAN MD Estimated Blood Loss: other (500 mL) Specimens 1. Abdominal wall with Urachus 2. Abdominal wall excessive skin 3. Pelvic cystic lesion/urachal adenocarcinoma with contents Grafts/Implants ACell 3 layer 7 x 10 and 10 x 15 cm Tubes/Drains 19 Thai Tylor placed through the right lower quadrant into the pelvis Complications: no Pt Condition Post Procedure: stable Disposition: PACU Indications Per progress notes. Risks include but are not limited to bleeding, hematoma, infection, abscess, wound formation, seroma, leak, damage to intestines or any intra-abdominal/ intrapelvic structures, hernia formation, chronic pain, need for re-operations or further surgeries, NH, stroke, PE, DVT, pneumonia, organ failures, or even . Procedure Description Patient was brought and placed supine initially done lithotomy after induction of anesthesia. All pressure points were well-padded. Timeout was performed. Preoperative antibiotics administered. Dr. Simmons proceeded with cystoscopy and bilateral ureteral stent placement After she was prepped and draped sterilely. Patient was reprepped. Lower midline previous large scar was excised down to fascia. Just above the previous incision the fascia was opened and abdomen was entered. There was extensive small bowel adhesions to the abdominal wall. These were taken down sharply and care was taken not to injure any of the bowel. After full mobilization of the small bowel off of the abdominal wall abdomen and pelvis were fully investigated. The sigmoid colon was very apparent along with several loops of small bowel to the pelvic tumor which was adherent to the bladder. My portion of dissection small bowel gingerly and meticulously from the pelvic tumor. Upon separation of the colon from the tumor we identified the fistula into the lesion. This was very small. By the end of the operation the colotomy was cleaned decision was made to repair it in 2 layers with 2-0 Vicryl running followed by 3-0 silk Lembert sutures. This was eventually subsequently reinforced with another loop of bowel adherent to the site followed by reinforcement with ACell biologic implant coverage. Some serosal injuries on the small bowel from extensive dissection were repaired with interrupted Lembert 3-[address] Simmons proceeded with resection of the abdominal wall, urachus and partial cystectomy and repair of the bladder which we he will dictate separately. By the end of the operation his bladder repair was also reinforced with xenograft biologic tissue as above. The zavala of the pelvic cystic lesion and the knees material within the lesion were excised as much as possible and different compartments were sent to pathology for further evaluation. Once again this was adherent to surrounding structures and this was done very carefully to prevent injury. However due to extensive adhesions of this tumor to surrounding structures this is not a curative resection however more palliative since were unable to remove all malignant tissue. Prior to implantation of the biologic tissue abdomen and pelvis with irrigated with warm water to clear suctioning fluid. There was complete hemostasis. 19 Thai Tylor was placed through the right lower quadrant into the pelvis and secured with 2-0 nylon suture. The Biologics as above were implanted 1 over the large bowel and the other facing the bladder repair. Abdominal fascia was closed with 2 Running Loop PDS sutures and at this point there was extensive abdominal subcutaneous tissue and skin. To reduce chance of seroma and abscess large segment of excessive skin and subcutaneous fat were excised with electrocautery and complete hemostasis was obtained. Abdominal wall was closed in multiple layers of 2-0 Vicryl interrupted subcutaneous followed by skin maurizio. Dressing was applied. Patient was extubated transferred to recovery room in stable condition. All counts were correct at the end of the operation 2. By this time the stents were removed by Dr. Simmons however the Stubbs was left intact. DIEGO YUEN MD May 05, 2017 23:32
--- NOTE | 2017-05-05 23:54 | OPR ---
Date/Time of Note Date/Time of Note DATE: 05/05/17 TIME: 23:41 Operative Report Procedure Date: May 05, 2017 Preoperative Diagnosis Urachal carcinoma and pelvic mass most likely local extension of the urachal carcinoma Postoperative Diagnosis Urachal carcinoma and pelvic mass, bowel adhesions communication of the tumor to the bladder and large intestines Operation Performed Dr. Simmons performed cystoscopy and insertion of bilateral ureteral catheters, partial cystectomy, the rest of the procedure will be dictated by Dr. Diego De Los Santos Surgeon: TRESSA SIMMONS MD Commercial Diver: DIEGO DE LOS SANTOS MD Anesthesia Type: general Anesthesiologist: ARBEN KAPLAN MD Estimated Blood Loss: other (500 mL) Specimen: none (Urachal carcinoma of the dome of the bladder, other specimen will be described by Dr. De Los Santos) Complications: no Pt Condition Post Procedure: stable Disposition: PACU Procedure Description The patient was brought to the operating room ,general anesthesia was induced. Central line was inserted by the anesthesiologist. The patient was positioned in the lithotomy position. Timeout was done the patient was identified by her name birthdate and the procedures. The genital area was then prepped and draped in the usual sterile manner. #21 Bahamian cystoscope sheath was introduced into the bladder. The left ureteral orifice was identified and cannulated was a 5 Bahamian open ended ureteral catheter and a 0.035 zip wire was passed through the open ended into the left ureteral orifice and up into the ureter then the open ended was advanced on it all the way up to the kidney. Then the Glidewire was removed and the same procedure was done on the right ureteral orifice. The scope was removed a #18 Bahamian Stubbs catheter was inserted into the bladder the balloon inflated with 10 mL of sterile water and the catheter connected to a drainage back the ureteral catheters were both connected to drainage bags and taped onto the Stubbs catheter so they do not slip out during the surgery. Then the patient was reprepped over the abdomen pelvic area upper thighs and genital area and was redraped then /jessica proceeded with the abdominal surgery he will describe this part of the procedure I was assisting he did free the adhesions from the bowel and the intestines were stuck onto the bladder and after dissection we were able to reach the bladder and the cystic tumor around the bladder on the left side and behind the bladder posteriorly were all suctioned drained and removed this tumor was adherent on the outside of the bladder outside of the sigmoid colon and the small bowel was in the vicinity of the bladder. The bladder dome was then opened and any tumor inside the bladder was suctioned and removed the dome of the bladder was opened and excised for about 3 cm to 4 cm one could see the Stubbs catheter inside the bladder after that they are not there was no visible tumor inside the bladder after that. The bladder was closed using 0 Vicryl interrupted sutures and then I did use the prevesical fat to cover the area of the bladder that was sutured and later on Dr. De Los Santos did the remaining of the procedure on the bowels and the pelvic tumor again he will dictate that part of the surgery. At the end of the procedure I remove the ureteral catheters The Stubbs catheter in place and the patient once she was closed she was then transferred to the recovery room in a stable and satisfactory condition. TRESSA SIMMONS MD May 05, 2017 23:54
[2017-05-06] VITALS (50 sets, daily range): BP systolic 70–109; BP diastolic 44–71; PULSE 85–138; RESP 14–29
--- NOTE | 2017-05-06 00:01 | RADRPT ---
PROCEDURE: XR Chest. CLINICAL INDICATION: Right internal jugular catheter placement follow-up. TECHNIQUE: AP Portable chest. COMPARISON: 03/23/2017 chest x-ray and chest CT dated 05/01/2017 FINDINGS: The soft tissues and bones are remarkable for right internal jugular catheter tip in the superior ve na cava. No pneumothorax is present. Low lung volumes are noted with bibasilar discoid atelectasis right greater than left and interstitial crowding. Visualized mediastinum and heart size appear no rmal for low lung volume technique. No pleural effusions or pneumothorax is present. The imaged soft tissues and osseous structures are also remarkable for the presence of a left ashvin l neck bone infarct or enchondroma. IMPRESSION: 1. Right internal jugular catheter tip in the superior vena cava. 2. No pneumothorax 3. Low lung volumes and right greater than left bibasilar discoid atelectasis. 4. 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 RPTAT: HDC .Alysia De La Cruz MD, MD Date Time Electronically viewed and signed by .Alysia De La Cruz MD, on 05/06/2017 00:00 .C/
[2017-05-06] MEDS ORDERED: KETOROLAC 30 MG INJ ONE (00:57)
[2017-05-06] MEDS ORDERED: KETOROLAC 30 MG INJ IV STA (00:58)
[2017-05-06] MEDS ORDERED: SOD CHLORIDE 0.9% 1,000 ML IV ONE ×2 (01:00→11:00)
[2017-05-06] MEDS ORDERED: traMADol 50 MG TAB PO ONE (01:00)
[2017-05-06] MEDS ORDERED: traMADol 50 MG TAB PO PRN (01:00)
[2017-05-06] MEDS: KETOROLAC 30 MG INJ IV PRN ×4 (01:13→19:38)
[2017-05-06 01:45] LABS: ADD UMIC YES; UR ASCORBIC ACID NEGATIVE (NEGATIVE); UR BACTERIA FEW /HPF (NONE SEEN); UR BILIRUBIN (Dip) NEGATIVE (NEGATIVE); UR BLOOD (Dip) 3+ mg/dL (NEGATIVE); UR CLARITY CLOUDY (CLEAR); UR COLOR RED (YELLOW); UR GLUCOSE (Dip) 1+ mg/dL (NEGATIVE); UR KETONES (Dip) NEGATIVE (NEGATIVE); UR LEUKOCYTE ESTERASE (Dip) TRACE Leu/ul (NEGATIVE); UR NITRITE (Dip) NEGATIVE (NEGATIVE); UR RBC > 182 /HPF (0-5); UR SPECIFIC GRAVITY (Dip) 1.009 (1.003-1.030); UR TOTAL PROTEIN (Dip) 2+ mg/dl (NEGATIVE); UR UROBILINOGEN (Dip) NEGATIVE (NEGATIVE)
[2017-05-06] MEDS: SOD CHLORIDE 0.9% 1,000 ML IV SCH ×4 (01:59→16:37)
[2017-05-06] MEDS ORDERED: SOD CHLORIDE 0.9% 500 ML IV ONE (02:00)
[2017-05-06] MEDS ORDERED: PHENYLephrine 20MG IN 250 ML 250 ML IV PRN (05:00)
[2017-05-06] MEDS ORDERED: SOD CHLORIDE 0.9% 1,000 ML IV STA (05:32)
[2017-05-06] MEDS: PANTOPRAZOLE (EC) 40 MG TAB PO SCH (05:44)
[2017-05-06 06:59] LABS: BASOPHILS % 0.1 % (0.0-2.0); HEMATOCRIT 26.9 % (37.0-47.0); HEMOGLOBIN 8.1 g/dl (12.0-16.0); LYMPHOCYTES # 0.8 10^3/ul (0.8-2.9); LYMPHOCYTES % 4.5 % (15.0-51.0); MEAN CORPUSCULAR HEMOGLOBIN 28.9 pg (29.0-33.0); MEAN CORPUSCULAR HGB CONC 30.1 g/dl (32.0-37.0); MEAN CORPUSCULAR VOLUME 96.1 fl (82.0-101.0); MEAN PLATELET VOLUME 10.2 fl (7.4-10.4); MONOCYTE # 1.2 10^3/ul (0.3-0.9); MONOCYTES % 6.8 % (0.0-11.0); NEUTROPHILS % 88.1 % (39.0-77.0); PLATELET COUNT 291 10^3/UL (140-415); RED CELL DISTRIBUTION WIDTH 15.3 % (11.5-14.5); WHITE BLOOD COUNT 18.1 10^3/ul (4.8-10.8)
[2017-05-06 07:15] LABS: ALBUMIN 2.1 g/dl (3.3-4.9); ALBUMIN/GLOBULIN RATIO 0.87; CALCIUM 7.5 mg/dl (8.4-10.2); CREATININE 0.34 mg/dl (0.44-1.00); POTASSIUM 3.7 mmol/L (3.5-5.1); TOTAL PROTEIN 4.5 g/dl (6.1-8.1)
[2017-05-06] MEDS: FOLIC ACID 1 MG TAB PO SCH (08:17)
[2017-05-06] MEDS: SULFASALAZINE 500 MG TAB PO SCH ×4 (08:17→21:00)
[2017-05-06] MEDS: MULTIVITAMINS THERAPEUTIC TAB PO SCH (08:18)
[2017-05-06] MEDS: PRIMIDONE 250 MG TAB PO SCH ×3 (08:18→21:00)
[2017-05-06] MEDS: METHYLPREDNISOLONE 40 MG INJ IV SCH (08:46)
[2017-05-06] MEDS: LEVETIRACETAM 500 MG (PMX) 100 ML IVPB SCH ×2 (08:46→20:39)
[2017-05-06] MEDS: TERIPARATIDE 600 MCG/2.4 ML SC SCH ×2 (09:00→12:13)
[2017-05-06] MEDS ORDERED: MAGNESIUM SULFATE 6 GM in SOD CHLORIDE 0.9% 100 ML IVPB SCH (10:30)
[2017-05-06 11:24] LABS: ABNORMAL IP MESSAGE 1; BASOPHILS % 0.1 % (0.0-2.0); HEMATOCRIT 27.8 % (37.0-47.0); HEMOGLOBIN 8.7 g/dl (12.0-16.0); LYMPHOCYTES # 0.5 10^3/ul (0.8-2.9); LYMPHOCYTES % 4.2 % (15.0-51.0); MEAN CORPUSCULAR HEMOGLOBIN 30.2 pg (29.0-33.0); MEAN CORPUSCULAR HGB CONC 31.3 g/dl (32.0-37.0); MEAN CORPUSCULAR VOLUME 96.5 fl (82.0-101.0); MEAN PLATELET VOLUME 9.5 fl (7.4-10.4); MONOCYTE # 0.6 10^3/ul (0.3-0.9); MONOCYTES % 5.1 % (0.0-11.0); NEUTROPHILS % 90.2 % (39.0-77.0); PLATELET COUNT 279 10^3/UL (140-415); RED BLOOD COUNT 2.88 10^6/ul (4.20-5.40); RED CELL DISTRIBUTION WIDTH 15.3 % (11.5-14.5); WHITE BLOOD COUNT 12.5 10^3/ul (4.8-10.8)
[2017-05-06 11:26] LABS: POSITIVE DIFF @See below
[2017-05-06 11:49] LABS: D-DIMER 1677.81 ng/ml (<460)
--- NOTE | 2017-05-06 12:36 | PN ---
Date/Time of Note Date/Time of Note DATE: 05/06/17 TIME: 12:10 Assessment/Plan Lines/Catheters IV Catheter Type (from [facility]): Central Line Partida in Place (from [facility]): Yes Assessment/Plan Chief Complaint/Hosp Course 1. 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 11 x 9 cm, Partial cystectomy & bilateral ureteral stent placement -follow path -danika growing: antifungals per ID 2. Leukocytosis: reactive +/- infective: improving -monitor -further work up if persistent 3.Hypotension w tachycardia: r/o cardiac event -troponin, d-dimer, cta -cards consult 4. Normocytic anemia: no acute bleed noted -monitor -transfuse as needed 5. History of pelvic ca, brain tumor: concern for recurrence -as above -per onc 6. UTI: multiorganism pathogens -abx per sensitivity Patient seen and examined in collaboration with Dr. Jonatan De Los Santos. Thank you. Problems: Subjective 24 Hr Interval Summary abdominal pain. Sinus tach, hypotensive but asymptomatic. No bm/flatus. Partida draining yellow/pink urine. No fevers, chills, sob, cough, n/v/d/dysuria. Exam/Review of Systems Vital Signs Vitals Vital Signs Date Time Temp Pulse Resp B/P Pulse Ox O2 Delivery O2 Flow Rate FiO2 05/06/17 11:00 105 16 92/51 98 Nasal Cannula 05/06/17 08:00 2.0 05/06/17 07:00 98.2 Intake and Output 05/05/17 05/05/17 05/06/17 15:00 23:00 07:00 Intake Total 1100 ml 250 ml 4755 ml Output Total 600 ml 1495 ml Balance 1100 ml -350 ml 3260 ml Exam Free Text/Dictation Constitutional: alert, oriented, pleasant, Psych: anxiety, no complaints Head: atraumatic, normocephalic Eyes: nl lids, nl sclera ENMT: mucosa pink and moist, nl nasal mucosa & septum Neck: non-tender, supple Respiratory: clear to auscultation, normal air movement Cardiovascular: regular rate and rhythm, No edema Gastrointestinal: soft, tender, rotund, surgical incision with maurizio, no periwound erythema/drainage : no dysuria, partida pink/yellow urine Musculoskeletal: nl extremities to inspection, nl gait and stance Extremities: normal pulses, No edema 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: nl mental status, nl speech, nl strength Lymph: No nl lymph nodes Results Result Diagram: 05/06/17 1052 05/06/17 0540 JENIFER CABAN NP May 06, 2017 12:20
[2017-05-06] MEDS ORDERED: IOHEXOL 100 ML ONE (12:55)
[2017-05-06] MEDS ORDERED: SOD CHLORIDE 0.9% 100 ML ONE (12:55)
--- NOTE | 2017-05-06 13:33 | RADRPT ---
PROCEDURE: CTA Chest with contrast and with 3-D reconstructions CLINICAL INDICATION: Pulmonary embolism TECHNIQUE: The study was performed utilizing multidetector CT scanner. Direct spiral axial section s were obtained from the thoracic inlet to the upper abdomen with the use of intravenous contrast ma terial. Sagittal, coronal and 3-D reformations were obtained. The images were reviewed on a PACS wor kstation. DLP 636.72 mGycm CTDIvol 28.17, 18.82 mGy One or more of the following dose reduction techniques were used: - Automated exposure control. - Adjustment of the mA and/or kV according to patient size. - Use of iterative reconstruction technique. COMPARISON: CT chest from 05/01/2017 FINDINGS: There are no pulmonary emboli. A heterogeneous 1 cm right thyroid nodule is again noted. There is a new trace left pleural effusion with subsegmental left greater than right basilar atelect asis. There is no pneumothorax. Heart size is within normal limits. There is no pericardial fluid. The aorta is within normal limi ts. There are no enlarged axillary or mediastinal lymph nodes. There are surgical clips in the gallbladder fossa consistent with cholecystectomy. There is a 3 mm left mid pole renal calculus. Osseous and soft tissue structures are within normal limits. IMPRESSION: No CT evidence for pulmonary embolus. New trace left pleural effusion with subsegmental left greater than right basilar atelectasis. Status post cholecystectomy. 3 mm left renal calculus. RPTAT: EE Physician Nakia Date Time Electronically viewed and signed by Physician Nakia on 05/06/2017 13:32 /
--- NOTE | 2017-05-06 13:40 | RADRPT ---
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 Physician: WALTER PINA Quality: Adequate Procedures: Transthoracic echocardiogram with complete 2D, M-Mode, and doppler examination. Indications: Suspect new chf. 2D/M Mode Doppler Measurement Value Normal Ranges Measurement Value Normal Ranges LVIDd 2D 4.1 3.5 - 5.6 cm AV Peak Charan 2.0 m/sec LVIDs 2D 2.8 2.1 - 4.1 cm AV Peak PG 16.0 mmHg FS 2D 31.6 % LVOT Peak Charan 1.4 m/sec LVPWd 2D 1.3 0.6 - 1.1 cm LVOT Peak PG 8.0 mmHg IVSd 2D 1.3 0.6 - 1.1 cm MV E Peak Charan 0.9 m/sec IVS/LVPW 2D 1.0 MV A Peak Charan 1.1 m/sec AoR Diam 2D 2.4 2.0 - 3.7 cm MV E/A 0.8 LA/Ao 2D 2 0 - 1 MV Decel Time 218 msec EDV 2D 66.4 cm3 MV E/A 0.8 ESV 2D 21.3 cm3 TR Peak Charan 3.1 m/sec LA Dimen 2D 3.9 2.3 - 4.0 cm TR Peak PG 39.0 mmHg RVSP 42.0 mmHg Findings Left Ventricle: Normal left ventricular systolic function. Normal left ventricular cavity size. Mild concentric left ventricular hypertrophy. Ejection fraction is visually estimated at 65 %. Tissue Doppler/Mitral Doppler indices are consistent with impaired relaxation (Stage I diastolic dysfunction). Right Ventricle: Normal right ventricular size. Normal right ventricular systolic function. Left Atrium: There is mild enlargement of left atrium. Right Atrium: The right atrium is normal in size. Mitral Valve: Mild mitral leaflet calcification. Mild mitral annular calcification. Trace mitral regurgitation. Aortic Valve: Normal appearance of the aortic valve. No significant aortic stenosis or insufficiency. Tricuspid Valve: Normal appearance and function of the tricuspid valve with trace physiologic regurgitation. Estimated peak PA systolic pressure 42 mmHg. Pulmonic Valve: Pulmonic valve not well visualized. There is trace pulmonic regurgitation. Pericardium: Normal pericardium with no significant pericardial effusion. Aorta: Normal aortic root. IVC: Normal size and normal respiratory collapse consistent with normal right atrial pressure. Conclusions 1.Normal left ventricular systolic function. Normal left ventricular cavity size. Mild concentric left ventricular hypertrophy. Ejection fraction is visually estimated at 65 %. Tissue Doppler/Mitral Doppler indices are consistent with impaired relaxation (Stage I diastolic dysfunction). 2.Normal right ventricular size. Normal right ventricular systolic function. 3.There is mild enlargement of left atrium. 4.The right atrium is normal in size. 5.No significant valvular stenosis or regurgitation seen. 6.Normal pericardium with no significant pericardial effusion. Electronically Signed By: Frank Willson 06-May-2017 13:40:00 -0700 Patient Name: ILIA CONSTANTINO Study Date: 06-May-2017 [id number]
--- NOTE | 2017-05-06 13:58 | PN ---
Date/Time of Note Date/Time of Note DATE: 05/06/17 TIME: 13:52 Assessment/Plan VTE Prophylaxis VTE Prophylaxis Intervention: SCD's Lines/C[facility]ters [facility] Central line still needed: Yes Urinary Cath still in place: Yes Reason Cath still needed: other (indicate) (monitor I&O) Assessment/Plan Chief Complaint/Hosp Course Assessment and plan 1. 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 continue antibiotics. status post CT-guided biopsy of lesion in area. She did also have transurethral resection of the bladder tumors on April 29, 2017. 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 Patient status post surgical intervention including cystoscopy and insertion of bilateral ureteral catheters and partial cystectomy, exploratory laparotomy with extensive lysis of adhesions, repair of colotomy, excision of pelvic cystic lesion. Continue with postop care. Follow-up pathology. 2. UTI. Continue antibiotics per ID recommendations. 3. Seizure disorder. Continue on Keppra. Stable at present. 4. History of rheumatoid arthritis. Continue with analgesics as needed 5. Sjogren's syndrome. Stable at present. Will monitor 6. History of brain tumor. Patient is status post resection. No active issue at this time. Will monitor. 7. Hypotension status post surgical intervention. Continue IV fluids. Director Of Early Childhood Education was consulted. Follow-up on echocardiogram. Disposition and plan: Patient status post surgical intervention. Continue postop care and analgesics. Patient was hypotensive postop. Director Of Early Childhood Education was consulted. Continue IV fluids and follow-up on echocardiogram. Vasopressors to be added pending clinical course. Discussed plan of care with Dr. Guardado Problems: Subjective 24 Hr Interval Summary Free Text/Dictation Awake and alert. Reports having some abdominal discomfort at this time. Family is at bedside Exam/Review of Systems Vital Signs Vitals Vital Signs Date Time Temp Pulse Resp B/P Pulse Ox O2 Delivery O2 Flow Rate FiO2 05/06/17 12:00 98.5 106 25 98/54 99 Nasal Cannula 05/06/17 08:00 2.0 Intake and Output 05/05/17 05/05/17 05/06/17 15:00 23:00 07:00 Intake Total 1100 ml 250 ml 4755 ml Output Total 600 ml 1495 ml Balance 1100 ml -350 ml 3260 ml Exam Constitutional: alert, oriented Head: normocephalic Respiratory: normal air movement Cardiovascular: other (Regular rate to tachycardic) Gastrointestinal: soft, tender 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: SOCIAL WORK ASSOCIATE II-XII intact, nl mental status, nl speech Skin: other (Surgical site with dressing and abdominal binder in place) Results Result Diagram: 05/06/17 1052 05/06/17 0540 Results 24 hrs Laboratory Tests Test 05/05/17 14:21 05/05/17 21:29 05/05/17 23:26 05/06/17 05:40 Prothrombin Time 12.9 13.8 Prothrombin Time Ratio 1.0 1.1 INR International Normalized Ratio 0.97 1.06 White Blood Count 8.5 # 18.1 #H Red Blood Count 3.40 L 2.80 L Hemoglobin 10.1 L 8.1 L Hematocrit 32.1 L 26.9 L Mean Corpuscular Volume 94.4 96.1 Mean Corpuscular Hemoglobin 29.7 28.9 L Mean Corpuscular Hemoglobin Concent 31.5 L 30.1 L Red Cell Distribution Width 15.2 H 15.3 H Platelet Count 334 291 Mean Platelet Volume 9.8 10.2 Neutrophils % 61.2 88.1 H Lymphocytes % 30.5 4.5 L Monocytes % 7.4 6.8 Eosinophils % 0.2 0.0 Basophils % 0.2 0.1 Nucleated Red Blood Cells % 0.0 0.0 Neutrophils # (Manual) 5.2 16.0 H Lymphocytes # 2.6 0.8 Monocytes # 0.6 1.2 H Eosinophils # 0.0 0.0 Basophils # 0.0 0.0 Nucleated Red Blood Cells # 0.0 0.0 Activated Partial Thromboplast Time 32.6 Urine Color RED Urine Clarity CLOUDY A Urine pH 8.0 Urine Specific [place] 1.009 Urine Ketones NEGATIVE Urine Nitrite NEGATIVE Urine Bilirubin NEGATIVE Urine Urobilinogen NEGATIVE Urine Leukocyte Esterase TRACE A Urine Microscopic RBC > 182 H Urine Microscopic WBC 12 H Urine Bacteria FEW A Urine Hemoglobin 3+ H Urine Glucose 1+ H Urine Total Protein 2+ H Sodium Level 142 Potassium Level 3.7 Chloride Level 106 Carbon Dioxide Level 26 Anion Gap 14 Blood Urea Nitrogen 3 L Creatinine 0.34 L Glucose Level 138 Calcium Level 7.5 L Magnesium Level 1.1 L Total Bilirubin 0.0 L Direct Bilirubin 0.00 Indirect Bilirubin 0.0 Aspartate Amino Transf (AST/SGOT) 55 H Alanine Aminotransferase (ALT/SGPT) 38 Alkaline Phosphatase 107 Total Protein 4.5 L Albumin 2.1 L Globulin 2.40 Albumin/Globulin Ratio 0.87 Test 05/06/17 10:52 05/06/17 11:02 White Blood Count 12.5 #H Red Blood Count 2.88 L Hemoglobin 8.7 L Hematocrit 27.8 L Mean Corpuscular Volume 96.5 Mean Corpuscular Hemoglobin 30.2 Mean Corpuscular Hemoglobin Concent 31.3 L Red Cell Distribution Width 15.3 H Platelet Count 279 Mean Platelet Volume 9.5 Neutrophils % 90.2 H Lymphocytes % 4.2 L Monocytes % 5.1 Eosinophils % 0.0 Basophils % 0.1 Nucleated Red Blood Cells % 0.0 Neutrophils # (Manual) 11.3 H Lymphocytes # 0.5 L Monocytes # 0.6 Eosinophils # 0.0 Basophils # 0.0 Nucleated Red Blood Cells # 0.0 Lactic Acid Level 0.9 D-Dimer 1677.81 #H D-Dimer Comment Troponin I < 0.012 Medications Medications Current Medications Ondansetron HCl (Zofran Inj) 4 mg Q6H PRN IV NAUSEA AND/OR VOMITING Last administered on 05/06/17 01:09; Admin Dose 4 MG; Start 04/23/17 at 22:30 Lorazepam (Ativan) 2 mg Q10MIN PRN IV seizure; Start 04/24/17 at 11:00 Methylprednisolone Sodium Succinate (Solu-Medrol) 20 mg DAILY IV Last administered on 05/06/17 08:46; Admin Dose 20 MG; Start 04/24/17 at 11:30 Folic Acid (Folic Acid) 1 mg DAILY PO Last administered on 05/04/17 09:40; Admin Dose 1 MG; Start 04/24/17 at 14:30 Multivitamins Therapeutic (Theragran) 1 tab DAILY PO Last administered on 09:40; Admin Dose 1 TAB; Start 04/24/17 at 14:30 Primidone (Mysoline) 250 mg TID PO Last administered on 05/04/17 20:44; Admin Dose 250 MG; Start 04/24/17 at 15:00 Sulfasalazine (Azulfidine) 500 mg QID PO Last administered on 05/04/17 20:44; Admin Dose 500 MG; Start 04/24/17 at 17:00 Atorvastatin Calcium (Lipitor) 20 mg DAILY@21 PO Last administered on 20:44; Admin Dose 20 MG; Start 04/24/17 at 21:00 Non-Formulary Medication 1 DOSE = 20 mcg/ 0.08ml DAILY SC Last administered on 05/06/17 12:13; Admin Dose 1 EA; Start 04/25/17 at 09:00 Levetiracetam 100 ml @ 400 mls/hr Q12 IVPB Last administered on 05/06/17 08: 46; Admin Dose 400 MLS/HR; Start 04/30/17 at 21:00 Ceftriaxone Sodium 50 ml @ 100 mls/hr Q24H IVPB Last administered on 18:16; Admin Dose 100 MLS/HR; Start 05/03/17 at 17:00 Fluconazole/ Sodium Chloride (Diflucan 100 Mg/ NS (Pmx)) 50 ml @ 50 mls/hr Q24H IVPB Last administered on 05/04/17 17:29; Admin Dose 50 MLS/HR; Start at 16:30 Hydromorphone HCl (Dilaudid) 0.5 mg Q2H PRN IV PAIN LEVEL 1-5; Start 05/05/17 at 23:30 Pantoprazole (Protonix Tab) 40 mg DAILY@06 PO Last administered on 05/06/17 05 :44; Admin Dose 40 MG; Start 05/06/17 at 06:00 Hydromorphone HCl (Dilaudid) 1 mg Q2 PRN IV pain 6-10; Start 05/05/17 at 23:30 Ketorolac Tromethamine (Toradol) 30 mg Q6H PRN IV PAIN Last administered on 13:34; Admin Dose 30 MG; Start 05/06/17 at 01:00; Stop 05/09/17 at 00:59 Tramadol HCl 50 mg 50 mg Q6H PRN PO PAIN LEVEL 4-7; Start 05/06/17 at 01:00 Sodium Chloride 1,000 ml @ 125 mls/hr Q8H IV Last administered on 05/06/17 01 :59; Admin Dose 125 MLS/HR; Start 05/06/17 at 01:00 Phenylephrine HCl (Matty-Syneph) 250 ml @ 75 mls/hr TITRATE PRN IV BLOOD PRESSURE SUPPORT; Start 05/06/17 at 05:00 WALTER PINA May 06, 2017 13:57
[2017-05-06] MEDS: FLUCONAZOLE 100 MG/NS (PMX) 50 ML IVPB SCH ×2 (14:43→15:51)
--- NOTE | 2017-05-06 14:49 | CONS ---
Date/Time of Note Date/Time of Note DATE: 05/06/17 TIME: 14:40 Assessment/Plan Assessment/Plan Additional Assessment/Plan Abdominal mass status post surgery 05/05/2017 Intermittent hypotension and tachycardia Preserved ejection fraction Rheumatoid arthritis -Patient with blood pressure ranging from the 80s to low 100s on vital signs review. Heart rate was sinus tachycardia this morning and currently in the 90s. Echocardiogram with preserved ejection fraction. White count is elevated but unclear if secondary to infection versus reactive. The patient is anemic. Likely multiple etiologies of patient's hypotension but is currently improved after IV fluids and is not on IV pressors. As mentioned, echocardiogram with normal ejection fraction with no evidence of significant pericardial effusion or IVC dilation. Furthermore, patient with known history of rheumatoid arthritis and has been on steroids, would consider checking cortisol level as well given the possibility of adrenal suppression given history of steroid use. Patient is also on narcotics as well which could contribute to hypotension. Would continue IV fluids if no contraindication. Hold any antihypertensive medications. Consultation Date/Type/Reason Admit Date/Time Apr 23, 2017 at 20:40 Type of Consultation: cv Reason for Consultation Hypertension and tachycardia Hx of Present Illness This is a 56-year-old female who found to have pelvic mass with known history of malignancy. Patient underwent extensive abdominal surgery yesterday. Overnight, patient with hypotension as well as this morning. Patient also with tachycardia. She denies symptoms of palpitations, chest pain, dizziness, shortness of breath. She does complain of intermittent severe abdominal pain at her incision site. Secondary to hypotension and tachycardia, cardiology consultation was requested. She denies any cardiac history. 12 point review of systems was performed with all pertinent positives and negatives mentioned above and all else is negative Constitutional: no complaints Eyes: no complaints ENT: no complaints Respiratory: no complaints Cardiovascular: no complaints, No chest pain Gastrointestinal: other (Lower abdominal pain) Genitourinary: dysuria (Mild) Musculoskeletal: no complaints Skin: no complaints Neurologic: no complaints Endocrine: no complaints Lymphatic: no complaints Psychological: no complaints Past Medical History Pelvic malignancy Rheumatoid arthritis Seizure disorder Medical History: other (severe rheumatoid arthritis , Sjogren's syndrome, history of seizure, none recently) Past Surgical History Past Surgical Hx: appendectomy, cholecystectomy, other (Supracervical hysterectomy with bilateral salpingo-oophorectomy, omentectomy, appendectomy, enterotomy repair, cystostomy repair) Social History Alcohol Use: none Smoking Status: Never smoker Exam/Review of Systems Vital Signs Vitals Vital Signs Date Time Temp Pulse Resp B/P Pulse Ox O2 Delivery O2 Flow Rate FiO2 05/06/17 14:00 100 22 104/53 98 Nasal Cannula 05/06/17 12:00 98.5 05/06/17 08:00 2.0 Intake and Output 05/05/17 05/05/17 05/06/17 15:00 23:00 07:00 Intake Total 1100 ml 250 ml 4755 ml Output Total 600 ml 1495 ml Balance 1100 ml -350 ml 3260 ml Exam No apparent distress, speaking in complete sentences Constitutional: alert, oriented Head: normocephalic Respiratory: other (Coarse breath sounds bilaterally, no wheezing) Cardiovascular: other (S1-S2 heard), regular rate and rhythm Gastrointestinal: bowel sounds, other (Bandages on abdomen), soft Extremities: edema (Trace) Results Result Diagram: 05/06/17 1052 05/06/17 0540 Results 24 hrs Laboratory Tests Test 05/05/17 21:29 05/05/17 23:26 05/06/17 05:40 05/06/17 10:52 White Blood Count 8.5 # 18.1 #H 12.5 #H Red Blood Count 3.40 L 2.80 L 2.88 L Hemoglobin 10.1 L 8.1 L 8.7 L Hematocrit 32.1 L 26.9 L 27.8 L Mean Corpuscular Volume 94.4 96.1 96.5 Mean Corpuscular Hemoglobin 29.7 28.9 L 30.2 Mean Corpuscular Hemoglobin Concent 31.5 L 30.1 L 31.3 L Red Cell Distribution Width 15.2 H 15.3 H 15.3 H Platelet Count 334 291 279 Mean Platelet Volume 9.8 10.2 9.5 Neutrophils % 61.2 88.1 H 90.2 H Lymphocytes % 30.5 4.5 L 4.2 L Monocytes % 7.4 6.8 5.1 Eosinophils % 0.2 0.0 0.0 Basophils % 0.2 0.1 0.1 Nucleated Red Blood Cells % 0.0 0.0 0.0 Neutrophils # (Manual) 5.2 16.0 H 11.3 H Lymphocytes # 2.6 0.8 0.5 L Monocytes # 0.6 1.2 H 0.6 Eosinophils # 0.0 0.0 0.0 Basophils # 0.0 0.0 0.0 Nucleated Red Blood Cells # 0.0 0.0 0.0 Prothrombin Time 13.8 Prothrombin Time Ratio 1.1 INR International Normalized Ratio 1.06 Activated Partial Thromboplast Time 32.6 Urine Color RED Urine Clarity CLOUDY A Urine pH 8.0 Urine Specific [place] 1.009 Urine Ketones NEGATIVE Urine Nitrite NEGATIVE Urine Bilirubin NEGATIVE Urine Urobilinogen NEGATIVE Urine Leukocyte Esterase TRACE A Urine Microscopic RBC > 182 H Urine Microscopic WBC 12 H Urine Bacteria FEW A Urine Hemoglobin 3+ H Urine Glucose 1+ H Urine Total Protein 2+ H Sodium Level 142 Potassium Level 3.7 Chloride Level 106 Carbon Dioxide Level 26 Anion Gap 14 Blood Urea Nitrogen 3 L Creatinine 0.34 L Glucose Level 138 Calcium Level 7.5 L Magnesium Level 1.1 L Total Bilirubin 0.0 L Direct Bilirubin 0.00 Indirect Bilirubin 0.0 Aspartate Amino Transf (AST/SGOT) 55 H Alanine Aminotransferase (ALT/SGPT) 38 Alkaline Phosphatase 107 Total Protein 4.5 L Albumin 2.1 L Globulin 2.40 Albumin/Globulin Ratio 0.87 Lactic Acid Level 0.9 Test 05/06/17 11:02 D-Dimer 1677.81 #H D-Dimer Comment Troponin I < 0.012 Medications Medications Current Medications Ondansetron HCl (Zofran Inj) 4 mg Q6H PRN IV NAUSEA AND/OR VOMITING Last administered on 05/06/17 01:09; Admin Dose 4 MG; Start 04/23/17 at 22:30 Lorazepam (Ativan) 2 mg Q10MIN PRN IV seizure; Start 04/24/17 at 11:00 Methylprednisolone Sodium Succinate (Solu-Medrol) 20 mg DAILY IV Last administered on 05/06/17 08:46; Admin Dose 20 MG; Start 04/24/17 at 11:30 Folic Acid (Folic Acid) 1 mg DAILY PO Last administered on 05/04/17 09:40; Admin Dose 1 MG; Start 04/24/17 at 14:30 Multivitamins Therapeutic (Theragran) 1 tab DAILY PO Last administered on 09:40; Admin Dose 1 TAB; Start 04/24/17 at 14:30 Primidone (Mysoline) 250 mg TID PO Last administered on 05/04/17 20:44; Admin Dose 250 MG; Start 04/24/17 at 15:00 Sulfasalazine (Azulfidine) 500 mg QID PO Last administered on 05/04/17 20:44; Admin Dose 500 MG; Start 04/24/17 at 17:00 Atorvastatin Calcium (Lipitor) 20 mg DAILY@21 PO Last administered on 20:44; Admin Dose 20 MG; Start 04/24/17 at 21:00 Non-Formulary Medication 1 DOSE = 20 mcg/ 0.08ml DAILY SC Last administered on 05/06/17 12:13; Admin Dose 1 EA; Start 04/25/17 at 09:00 Levetiracetam 100 ml @ 400 mls/hr Q12 IVPB Last administered on 05/06/17 08: 46; Admin Dose 400 MLS/HR; Start 04/30/17 at 21:00 Ceftriaxone Sodium 50 ml @ 100 mls/hr Q24H IVPB Last administered on 18:16; Admin Dose 100 MLS/HR; Start 05/03/17 at 17:00 Fluconazole/ Sodium Chloride (Diflucan 100 Mg/ NS (Pmx)) 50 ml @ 50 mls/hr Q24H IVPB Last administered on 05/04/17 17:29; Admin Dose 50 MLS/HR; Start at 16:30 Hydromorphone HCl (Dilaudid) 0.5 mg Q2H PRN IV PAIN LEVEL 1-5; Start 05/05/17 at 23:30 Pantoprazole (Protonix Tab) 40 mg DAILY@06 PO Last administered on 05/06/17 05 :44; Admin Dose 40 MG; Start 05/06/17 at 06:00 Hydromorphone HCl (Dilaudid) 1 mg Q2 PRN IV pain 6-10; Start 05/05/17 at 23:30 Ketorolac Tromethamine (Toradol) 30 mg Q6H PRN IV PAIN Last administered on 13:34; Admin Dose 30 MG; Start 05/06/17 at 01:00; Stop 05/09/17 at 00:59 Tramadol HCl 50 mg 50 mg Q6H PRN PO PAIN LEVEL 4-7; Start 05/06/17 at 01:00 Sodium Chloride 1,000 ml @ 125 mls/hr Q8H IV Last administered on 05/06/17t 01 :59; Admin Dose 125 MLS/HR; Start 05/06/17 at 01:00 Phenylephrine HCl (Matty-Syneph) 250 ml @ 75 mls/hr TITRATE PRN IV BLOOD PRESSURE SUPPORT; Start 05/06/17 at 05:00 Procedures Procedures ECG demonstrates sinus rhythm, normal QRS duration, no significant T-wave abnormalities Frank Willson DO May 06, 2017 14:48
[2017-05-06] MEDS: CEFTRIAXONE 1 GM/50 ML (PMX) 50 ML IVPB SCH (16:49)
[2017-05-06] MEDS ORDERED: PHENYLephrine 40 MG in DEXTROSE 5% 496 ML IV SCH (18:30)
--- NOTE | 2017-05-06 20:14 | PN ---
Date/Time of Note Date/Time of Note DATE: 05/06/17 TIME: 20:07 Assessment/Plan VTE Prophylaxis VTE Prophylaxis Intervention: anti-embolic stocking Lines/Catheters IV Catheter Type (from Nrsg): Central Line (Central line is needed patient has very poor veins and she needs to receive IV fluids as well as medications) Central line still needed: Yes Urinary Cath still in place: Yes Reason Cath still needed: other (indicate) (Urological surgery, partial cystectomy, she will need to have the Stubbs catheter for at least 10-14 days) Assessment/Plan Chief Complaint/Hosp Course Patient is postop day 1 she underwent partial cystectomy yesterday and excision of pelvic tumor. She is doing reasonably well continue the present treatment pain management IV fluids keep the Stubbs catheter in place and antibiotic Problems: Subjective 24 Hr Interval Summary Free Text/Dictation Patient is postop partial cystectomy and excision of pelvic tumor She complains of pain and she was transferred to the ICU earlier because of hypotension but she was given fluids and she is much better now Constitutional: no complaints Eyes: no complaints ENT: no complaints Respiratory: no complaints Cardiovascular: No chest pain Gastrointestinal: pain Genitourinary: other (Stubbs catheter in place draining clear to blood-tinged urine) Musculoskeletal: no complaints Skin: no complaints Exam/Review of Systems Vital Signs Vitals Vital Signs Date Time Temp Pulse Resp B/P Pulse Ox O2 Delivery O2 Flow Rate FiO2 05/06/17 19:00 103 23 109/62 98 Nasal Cannula 05/06/17 16:00 98.6 05/06/17 08:00 2.0 Intake and Output 05/05/17 05/05/17 05/06/17 15:00 23:00 07:00 Intake Total 1100 ml 250 ml 4755 ml Output Total 600 ml 1495 ml Balance 1100 ml -350 ml 3260 ml Exam Constitutional: alert, oriented Psych: no complaints Eyes: nl conjunctiva Neck: supple Respiratory: normal air movement Genitourinary - Female: other (Stubbs catheter draining clear to blood-tinged urine), No CVA tenderness Extremities: No calf tenderness Results Result Diagram: 05/06/17 1052 05/06/17 0540 Results 24 hrs Laboratory Tests Test 05/05/17 21:29 05/05/17 23:26 05/06/17 05:40 05/06/17 10:52 White Blood Count 8.5 # 18.1 #H 12.5 #H Red Blood Count 3.40 L 2.80 L 2.88 L Hemoglobin 10.1 L 8.1 L 8.7 L Hematocrit 32.1 L 26.9 L 27.8 L Mean Corpuscular Volume 94.4 96.1 96.5 Mean Corpuscular Hemoglobin 29.7 28.9 L 30.2 Mean Corpuscular Hemoglobin Concent 31.5 L 30.1 L 31.3 L Red Cell Distribution Width 15.2 H 15.3 H 15.3 H Platelet Count 334 291 279 Mean Platelet Volume 9.8 10.2 9.5 Neutrophils % 61.2 88.1 H 90.2 H Lymphocytes % 30.5 4.5 L 4.2 L Monocytes % 7.4 6.8 5.1 Eosinophils % 0.2 0.0 0.0 Basophils % 0.2 0.1 0.1 Nucleated Red Blood Cells % 0.0 0.0 0.0 Neutrophils # (Manual) 5.2 16.0 H 11.3 H Lymphocytes # 2.6 0.8 0.5 L Monocytes # 0.6 1.2 H 0.6 Eosinophils # 0.0 0.0 0.0 Basophils # 0.0 0.0 0.0 Nucleated Red Blood Cells # 0.0 0.0 0.0 Prothrombin Time 13.8 Prothrombin Time Ratio 1.1 INR International Normalized Ratio 1.06 Activated Partial Thromboplast Time 32.6 Urine Color RED Urine Clarity CLOUDY A Urine pH 8.0 Urine Specific [place] 1.009 Urine Ketones NEGATIVE Urine Nitrite NEGATIVE Urine Bilirubin NEGATIVE Urine Urobilinogen NEGATIVE Urine Leukocyte Esterase TRACE A Urine Microscopic RBC > 182 H Urine Microscopic WBC 12 H Urine Bacteria FEW A Urine Hemoglobin 3+ H Urine Glucose 1+ H Urine Total Protein 2+ H Sodium Level 142 Potassium Level 3.7 Chloride Level 106 Carbon Dioxide Level 26 Anion Gap 14 Blood Urea Nitrogen 3 L Creatinine 0.34 L Glucose Level 138 Calcium Level 7.5 L Magnesium Level 1.1 L Total Bilirubin 0.0 L Direct Bilirubin 0.00 Indirect Bilirubin 0.0 Aspartate Amino Transf (AST/SGOT) 55 H Alanine Aminotransferase (ALT/SGPT) 38 Alkaline Phosphatase 107 Total Protein 4.5 L Albumin 2.1 L Globulin 2.40 Albumin/Globulin Ratio 0.87 Lactic Acid Level 0.9 Random Cortisol 8.2 Test 05/06/17 11:02 D-Dimer 1677.81 #H D-Dimer Comment Troponin I < 0.012 Medications Medications Current Medications Ondansetron HCl (Zofran Inj) 4 mg Q6H PRN IV NAUSEA AND/OR VOMITING Last administered on 05/06/17 01:09; Admin Dose 4 MG; Start 04/23/17 at 22:30 Lorazepam (Ativan) 2 mg Q10MIN PRN IV seizure; Start 04/24/17 at 11:00 Methylprednisolone Sodium Succinate (Solu-Medrol) 20 mg DAILY IV Last administered on 05/06/17 08:46; Admin Dose 20 MG; Start 04/24/17 at 11:30 Folic Acid (Folic Acid) 1 mg DAILY PO Last administered on 05/04/17 09:40; Admin Dose 1 MG; Start 04/24/17 at 14:30 Multivitamins Therapeutic (Theragran) 1 tab DAILY PO Last administered on 09:40; Admin Dose 1 TAB; Start 04/24/17 at 14:30 Primidone (Mysoline) 250 mg TID PO Last administered on 05/04/17 20:44; Admin Dose 250 MG; Start 04/24/17 at 15:00 Sulfasalazine (Azulfidine) 500 mg QID PO Last administered on 05/04/17 20:44; Admin Dose 500 MG; Start 04/24/17 at 17:00 Atorvastatin Calcium (Lipitor) 20 mg DAILY@21 PO Last administered on 20:44; Admin Dose 20 MG; Start 04/24/17 at 21:00 Non-Formulary Medication 1 DOSE = 20 mcg/ 0.08ml DAILY SC Last administered on 05/06/17 12:13; Admin Dose 1 EA; Start 04/25/17 at 09:00 Levetiracetam 100 ml @ 400 mls/hr Q12 IVPB Last administered on 05/06/17 08: 46; Admin Dose 400 MLS/HR; Start 04/30/17 at 21:00 Ceftriaxone Sodium 50 ml @ 100 mls/hr Q24H IVPB Last administered on 16:49; Admin Dose 100 MLS/HR; Start 05/03/17 at 17:00 Fluconazole/ Sodium Chloride (Diflucan 100 Mg/ NS (Pmx)) 50 ml @ 50 mls/hr Q24H IVPB Last administered on 05/06/17 15:51; Admin Dose 50 MLS/HR; Start at 16:30 Hydromorphone HCl (Dilaudid) 0.5 mg Q2H PRN IV PAIN LEVEL 1-5; Start 05/05/17 at 23:30 Pantoprazole (Protonix Tab) 40 mg DAILY@06 PO Last administered on 05/06/17 05 :44; Admin Dose 40 MG; Start 05/06/17 at 06:00 Hydromorphone HCl (Dilaudid) 1 mg Q2 PRN IV pain 6-10; Start 05/05/17 at 23:30 Ketorolac Tromethamine (Toradol) 30 mg Q6H PRN IV PAIN Last administered on 19:38; Admin Dose 30 MG; Start 05/06/17 at 01:00; Stop 05/09/17 at 00:59 Tramadol HCl 50 mg 50 mg Q6H PRN PO PAIN LEVEL 4-7; Start 05/06/17 at 01:00 Sodium Chloride 1,000 ml @ 125 mls/hr Q8H IV Last administered on 05/06/17 15 :06; Admin Dose 125 MLS/HR; Start 05/06/17 at 01:00 Phenylephrine HCl/ Dextrose (Matty-Syneph/D5W) 500 ml @ 75 mls/hr TITRATE IV ; Start 05/06/17 at 18:30 TRESSA SIMMONS MD May 06, 2017 20:14
[2017-05-06] MEDS: ATORVASTATIN 20 MG TAB PO SCH (21:00)
[2017-05-07] VITALS (22 sets, daily range): BP systolic 84–124; BP diastolic 52–92; PULSE 92–111; RESP 15–36
[2017-05-07] MEDS: SOD CHLORIDE 0.9% 1,000 ML IV SCH ×5 (00:16→23:00)
[2017-05-07] MEDS: KETOROLAC 30 MG INJ IV PRN ×4 (03:49→21:24)
[2017-05-07 05:13] LABS: BASOPHILS % 0.1 % (0.0-2.0); HEMATOCRIT 24.3 % (37.0-47.0); HEMOGLOBIN 7.4 g/dl (12.0-16.0); LYMPHOCYTES # 1.4 10^3/ul (0.8-2.9); LYMPHOCYTES % 15.3 % (15.0-51.0); MEAN CORPUSCULAR HEMOGLOBIN 29.6 pg (29.0-33.0); MEAN CORPUSCULAR HGB CONC 30.5 g/dl (32.0-37.0); MEAN CORPUSCULAR VOLUME 97.2 fl (82.0-101.0); MEAN PLATELET VOLUME 9.7 fl (7.4-10.4); MONOCYTE # 1.1 10^3/ul (0.3-0.9); MONOCYTES % 12.1 % (0.0-11.0); NEUTROPHILS % 72.3 % (39.0-77.0); PLATELET COUNT 239 10^3/UL (140-415); RED CELL DISTRIBUTION WIDTH 15.5 % (11.5-14.5); WHITE BLOOD COUNT 8.8 10^3/ul (4.8-10.8)
[2017-05-07 05:40] LABS: ANION GAP 6 (8-16); CALCIUM 7.8 mg/dl (8.4-10.2); CARBON DIOXIDE 26 mmol/L (21-31); CHLORIDE 110 mmol/L (97-110); CREATININE 0.41 mg/dl (0.44-1.00); GLUCOSE 83 mg/dl (70-220); POTASSIUM 3.3 mmol/L (3.5-5.1); SODIUM 139 mmol/L (135-144)
[2017-05-07] MEDS: PANTOPRAZOLE (EC) 40 MG TAB PO SCH (05:44)
[2017-05-07 06:19] LABS: BLOOD UREA NITROGEN < 2 mg/dl (7-20)
[2017-05-07] MEDS ORDERED: POTASSIUM CHLORIDE 50 ML IVPB ONE (07:00)
[2017-05-07] MEDS: MULTIVITAMINS THERAPEUTIC TAB PO SCH (08:22)
[2017-05-07] MEDS: PRIMIDONE 250 MG TAB PO SCH ×3 (08:22→21:26)
[2017-05-07] MEDS: SULFASALAZINE 500 MG TAB PO SCH ×4 (08:22→21:26)
[2017-05-07] MEDS: FOLIC ACID 1 MG TAB PO SCH (08:22)
--- NOTE | 2017-05-07 08:44 | PN ---
Date/Time of Note Date/Time of Note DATE: 05/07/17 TIME: 08:24 Assessment/Plan Lines/Catheters IV Catheter Type (from [facility]): Central Line Partida in Place (from [facility]): Yes Assessment/Plan Chief Complaint/Hosp Course 1. 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 11 x 9 cm, Partial cystectomy & bilateral ureteral stent placement; no bm/flatus -follow path -danika growing: antifungals per ID -pain management 2. Leukocytosis: reactive +/- infective: normalized: CT chest: New trace left pleural effusion with subsegmental left greater than right basilar atelectasis -monitor -is -ambulation -ice pack to abd wall 3.Hypotension w tachycardia: r/o cardiac event: cta negative, trop neg, echo: preserved EF, cards recs noted; -supportive 4. Normocytic anemia: no acute bleed noted -monitor -transfuse as needed 5. History of pelvic ca, brain tumor: concern for recurrence -as above -per onc 6. UTI: multiorganism pathogens -abx per sensitivity Patient seen and examined in collaboration with Dr. Jonatan De Los Santos. Thank you. Problems: Subjective 24 Hr Interval Summary CTangio negative, trop neg. Hypotension with tachycardia (improving). min temp overnight. Feels well but abdominal pain. No chills, diaphoresis, cp, palpitations, n/v/d/dysuria. Exam/Review of Systems Vital Signs Vitals Vital Signs Date Time Temp Pulse Resp B/P Pulse Ox O2 Delivery O2 Flow Rate FiO2 05/07/17 07:29 Nasal Cannula 2.0 05/07/17 07:00 99.3 97 22 106/57 100 Intake and Output 05/06/17 05/06/17 05/07/17 15:00 23:00 07:00 Intake Total 837 ml 1200 ml 1025 ml Output Total 1085 ml 1170 ml 1175 ml Balance -248 ml 30 ml -150 ml Exam Free Text/Dictation Constitutional: alert, oriented, pleasant, Psych: anxiety, no complaints Head: atraumatic, normocephalic Eyes: nl lids, nl sclera ENMT: mucosa pink and moist, nl nasal mucosa & septum Neck: non-tender, supple Respiratory: clear to auscultation, normal air movement Cardiovascular: regular rate and rhythm, No edema Gastrointestinal: soft, tender, rotund, surgical incision with maurizio, no periwound erythema/drainage : no dysuria, partida yellow urine Musculoskeletal: nl extremities to inspection Extremities: normal pulses, No edema 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: nl mental status, nl speech, nl strength Lymph: No nl lymph nodes Results Result Diagram: 05/07/17 0445 05/07/17 0445 JENIFER CABAN NP May 07, 2017 08:34
[2017-05-07] MEDS: METHYLPREDNISOLONE 40 MG INJ IV SCH (08:50)
[2017-05-07] MEDS: LEVETIRACETAM 500 MG (PMX) 100 ML IVPB SCH ×2 (08:51→20:48)
[2017-05-07] MEDS: TERIPARATIDE 600 MCG/2.4 ML SC SCH (08:51)
--- NOTE | 2017-05-07 09:51 | PN ---
DATE: 05/06/2017 SUBJECTIVE DATA: The patient had surgical intervention yesterday, after which she developed hypotension and was transferred to ICU. Sshe is awake, getting a 2D echo. Looks comfortable. Temperature 98.5, pulse 99, respirations 16, blood pressure 92/51, saturation 98 percent on nasal cannula. LABORATORY AND DIAGNOSTIC DATA: WBC 18.1, H and H 8.1 and 26.9, platelets 291. Neutrophils 88.1. BUN 3, creatinine 0.34. CT of the chest and thorax revealed no evidence for pulmonary embolus. New trace left pleural effusion with subsegmental, left greater than right basilar atelectasis, Indwelling right IJ triple lumen catheter. Antimicrobials: Ceftriaxone fluconazole. PHYSICAL EXAMINATION: GENERAL: This is a fragile well-developed middle-aged woman, who is awake, in no distress. HEENT: Head atraumatic, normocephalic. Sclerae anicteric. Buccal mucosa dry. NECK: Supple. CHEST: Chest rise symmetrical. Breath sounds diminished at the bases. HEART: S1, S2. ABDOMEN: Soft. Bowel sounds present. The patient has UCHE mid abdominal dressing clean, dry, intact. EXTREMITIES: Without cyanosis. ASSESSMENT: 1. Symptomatic hypotension, questionable sepsis, questionable hypovolemic shock. Transferred to ICU post surgically. No evidence of pulmonary emboli per CT of the chest. 2. 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 De Los Santos and Dr. Crawley. 3. Anemia 4. Status post urinary tract infection. 5. Leukocytosis, possibly reactive, post surgically. Rule out infectious process. PLAN: The patient is so far hemodynamically and clinically stable. She is not on any vasopressor support. She is being followed by multiple consultants. We are going to repeat cultures. Continue her on current antibiotics for now and follow labs in a.m. Dictated By: Riana Carlson NP /brandon/glenys /Document#: [id number]
--- NOTE | 2017-05-07 09:55 | PN ---
DATE: 05/06/2017 SUBJECTIVE: The patient is feeling fairly well. She does complain of some abdominal pain secondary to abdominal surgery performed on 05/05. OBJECTIVE DATA: GENERAL: The patient is a well-developed, well-nourished female who is in no acute distress. VITAL SIGNS: Temperature 98.6, pulse 103 per minute and regular, respirations 23 per minute, blood pressure 109/62. Pulse oximetry is 98 percent on 2 L of oxygen by nasal cannula. SKIN: No ecchymosis. No petechiae or rashes. HEENT: No mucosal lesions. No scleral icterus. Pupils equal, round and react to light and accommodation. Tongue is well papillated. There is no gingival hyperplasia. NECK: Neck is supple. There is no jugular distention or thyroid enlargement. There is a triple-lumen catheter in the right internal jugular. There was no bleeding at the insertion site. CHEST: Decreased breath sounds in both bases but no rhonchi, wheezes, rales or rubs. NODES: No palpable lymphadenopathy. HEART: Sinus tachycardia. No S3, S4, or murmurs. ABDOMEN: Mildly distended. There is a surgical dressing and binder in place. The bowel sounds are absent. EXTREMITIES: No clubbing, no edema or cyanosis. There are SCDs in place. There are the deformities associated with patient's rheumatoid arthritis. NEUROLOGIC: NEUROLOGIC: Neurologic is normal. LABORATORY AND DIAGNOSTIC DATA: A CT angiogram of the chest was performed today. There was no evidence of pulmonary emboli. There was a new trace of left-sided pleural effusion. White count 12,500, with an absolute neutrophil count of 11,300, hemoglobin 8.7, hematocrit 27.8, MCV 96.5, and platelet count is 279,000. Sodium 142, potassium 3.7, BUN 3, and creatinine 0.34, bilirubin 0, AST 55, ALT 38, alkaline phosphatase 107. ASSESSMENT: 1. Urachal carcinoma status post surgical removal with a partial cystectomy and "debulking surgery." 2. Rheumatoid arthritis. 3. Sjogren syndrome. 4. History of benign brain tumor. DISCUSSION: I have discussed the situation with the patient and her son who served in translation. I have explained that the tumor has been resected from the bladder and that the majority of tumor has been resected from the abdominal cavity. I have explained, however, that has been tumor left behind. I have explained that this was because of the adhesions and the potential damage that might be caused by trying to resect these small residual areas of tumor. At this time, I do not plan on administering postoperative chemotherapy or radiation. This is not a chemo-sensitive tumor. The fact that it is so slow growing limits its response of this to both chemotherapy and radiation therapy. I have concern that either one of these modalities of therapy would result in significant morbidity. I will request further studies to be done on the resected tissue to determine if there may be a response to unexpected agents such as a checkpoint inhibitor. Dictated By: Titi Eid MD /brandon/erin /Document#: [id number]
--- NOTE | 2017-05-07 12:12 | PN ---
DATE: 05/07/2017 SUBJECTIVE DATA: No events overnight. The patient is alert, feels good, denies pain, discomfort. No fevers. OBJECTIVE DATA: VITAL SIGNS: Temperature 99.3, pulse 97, respirations 1, blood pressure 108/69, saturation 99 on 2 L. LABORATORY AND DIAGNOSTIC DATA: WBC 8.8, H and H 7.4 and 24.3, platelets 249, neutrophils 72.3. BUN 2, creatinine 0.41. MICROBIOLOGY: Urine culture repeated on May 05 negative. INDWELLING: Right IJ triple-lumen catheter, Stubbs, right-sided abdominal UCHE catheter. ANTIMICROBIALS: The patient is on fluconazole and Rocephin. PHYSICAL EXAMINATION: GENERAL: This is a well-developed, well-nourished, middle-aged woman, who is alert, in no distress. HEENT: Head atraumatic, normocephalic. Sclerae anicteric. Buccal mucosa pink. NECK: Supple. CHEST: Rise symmetrical. Breath sounds diminished at the bases. HEART: S1, S2. ABDOMEN: Soft, bowel sounds present. EXTREMITIES: Without cyanosis. ASSESSMENT: 1. Status post symptomatic postoperative hypertension, stabilized. No evidence of pulmonary emboli per CT of the chest. 2. 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 3. Status post urinary tract infection. 4. Anemia. 5. Leukocytosis, likely postoperative, resolved. PLAN: The patient remains stable. She is being seen by multiple consultants. Pending pathology of the intraoperative specimens. No plan for postoperative chemo radiation. Continue management as per primary team and consultants, complete antibiotics. Dictated By: Riana Carlson NP /brandon/jayshree /Document#: [id number] JORGE
--- NOTE | 2017-05-07 14:06 | PN ---
Date/Time of Note Date/Time of Note DATE: 05/07/17 TIME: 14:03 Assessment/Plan VTE Prophylaxis VTE Prophylaxis Intervention: ambulation, SCD's Lines/Catheters IV Catheter Type (from [facility]): Central Line Central line still needed: Yes Urinary Cath still in place: Yes Reason Cath still needed: other (indicate) (recent surgery of bladder) Assessment/Plan Assessment/Plan Pt had recurrent urachal tumor resected but residual disease is present. I discussed with family and patient that she will need to be monitored in the future but that healing from surgery will be the immediate goal. No chemotherapy or radiation therapy is planned since this tumor is not responsive to these modalities. Subjective 24 Hr Interval Summary Free Text/Dictation Pt is in chair and making progress after the recent surgery. Exam/Review of Systems Vital Signs Vitals Vital Signs Date Time Temp Pulse Resp B/P Pulse Ox O2 Delivery O2 Flow Rate FiO2 05/07/17 12:00 99 05/07/17 10:30 15 108/69 99 Nasal Cannula 2.0 05/07/17 07:00 99.3 Intake and Output 05/06/17 05/06/17 05/07/17 15:00 23:00 07:00 Intake Total 837 ml 1200 ml 1025 ml Output Total 1085 ml 1170 ml 1175 ml Balance -248 ml 30 ml -150 ml Exam Constitutional: alert, oriented Head: normocephalic Eyes: nl conjunctiva Respiratory: clear to auscultation Cardiovascular: regular rate and rhythm Gastrointestinal: other (s/p surgery) Results Result Diagram: 05/07/17 0445 05/07/17 0445 Results 24 hrs Laboratory Tests Test 05/07/17 04:45 White Blood Count 8.8 # Red Blood Count 2.50 L Hemoglobin 7.4 L Hematocrit 24.3 L Mean Corpuscular Volume 97.2 Mean Corpuscular Hemoglobin 29.6 Mean Corpuscular Hemoglobin Concent 30.5 L Red Cell Distribution Width 15.5 H Platelet Count 239 Mean Platelet Volume 9.7 Neutrophils % 72.3 Lymphocytes % 15.3 Monocytes % 12.1 H Eosinophils % 0.0 Basophils % 0.1 Nucleated Red Blood Cells % 0.0 Neutrophils # (Manual) 6.4 Lymphocytes # 1.4 Monocytes # 1.1 H Eosinophils # 0.0 Basophils # 0.0 Nucleated Red Blood Cells # 0.0 Sodium Level 139 Potassium Level 3.3 L Chloride Level 110 Carbon Dioxide Level 26 Anion Gap 6 #L Blood Urea Nitrogen < 2 L Creatinine 0.41 L Glucose Level 83 # Calcium Level 7.8 L Medications Medications Current Medications Ondansetron HCl (Zofran Inj) 4 mg Q6H PRN IV NAUSEA AND/OR VOMITING Last administered on 05/06/17 01:09; Admin Dose 4 MG; Start 04/23/17 at 22:30 Lorazepam (Ativan) 2 mg Q10MIN PRN IV seizure; Start 04/24/17 at 11:00 Methylprednisolone Sodium Succinate (Solu-Medrol) 20 mg DAILY IV Last administered on 05/07/17 08:50; Admin Dose 20 MG; Start 04/24/17 at 11:30 Folic Acid (Folic Acid) 1 mg DAILY PO Last administered on 05/04/17 09:40; Admin Dose 1 MG; Start 04/24/17 at 14:30 Multivitamins Therapeutic (Theragran) 1 tab DAILY PO Last administered on 09:40; Admin Dose 1 TAB; Start 04/24/17 at 14:30 Primidone (Mysoline) 250 mg TID PO Last administered on 05/04/17 20:44; Admin Dose 250 MG; Start 04/24/17 at 15:00 Sulfasalazine (Azulfidine) 500 mg QID PO Last administered on 05/04/17 20:44; Admin Dose 500 MG; Start 04/24/17 at 17:00 Atorvastatin Calcium (Lipitor) 20 mg DAILY@21 PO Last administered on 20:44; Admin Dose 20 MG; Start 04/24/17 at 21:00 Non-Formulary Medication 1 DOSE = 20 mcg/ 0.08ml DAILY SC Last administered on 05/07/17 08:51; Admin Dose 1 EA; Start 04/25/17 at 09:00 Levetiracetam 100 ml @ 400 mls/hr Q12 IVPB Last administered on 05/07/17 08: 51; Admin Dose 400 MLS/HR; Start 04/30/17 at 21:00 Ceftriaxone Sodium 50 ml @ 100 mls/hr Q24H IVPB Last administered on 16:49; Admin Dose 100 MLS/HR; Start 05/03/17 at 17:00 Fluconazole/ Sodium Chloride (Diflucan 100 Mg/ NS (Pmx)) 50 ml @ 50 mls/hr Q24H IVPB Last administered on 05/06/17 15:51; Admin Dose 50 MLS/HR; Start at 16:30 Hydromorphone HCl (Dilaudid) 0.5 mg Q2H PRN IV PAIN LEVEL 1-5; Start 05/05/17 at 23:30 Pantoprazole (Protonix Tab) 40 mg DAILY@06 PO Last administered on 05/06/17 05 :44; Admin Dose 40 MG; Start 05/06/17 at 06:00 Hydromorphone HCl (Dilaudid) 1 mg Q2 PRN IV pain 6-10; Start 05/05/17 at 23:30 Ketorolac Tromethamine (Toradol) 30 mg Q6H PRN IV PAIN Last administered on 09:18; Admin Dose 30 MG; Start 05/06/17 at 01:00; Stop 05/09/17 at 00:59 Tramadol HCl 50 mg 50 mg Q6H PRN PO PAIN LEVEL 4-7; Start 05/06/17 at 01:00 Sodium Chloride 1,000 ml @ 125 mls/hr Q8H IV Last administered on 05/07/17 08 :51; Admin Dose 125 MLS/HR; Start 05/06/17 at 01:00 Phenylephrine HCl/ Dextrose (Matty-Syneph/D5W) 500 ml @ 75 mls/hr TITRATE IV ; Start 05/06/17 at 18:30 SHANA OVALLE MD May 07, 2017 14:06
--- NOTE | 2017-05-07 14:39 | PN ---
Date/Time of Note Date/Time of Note DATE: 05/07/17 TIME: 14:26 Assessment/Plan VTE Prophylaxis VTE Prophylaxis Intervention: SCD's Lines/Catheters IV C[facility]ter Type (from [facility]): Central Line Central line still needed: Yes Urinary Cath still in place: Yes Reason Cath still needed: other (indicate) (monitor I&O) Assessment/Plan Chief Complaint/Hosp Course Assessment and plan 1. 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 continue antibiotics. status post CT-guided biopsy of lesion in area. She did also have transurethral resection of the bladder tumors on April 29, 2017. 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 Patient status post surgical intervention including cystoscopy and insertion of bilateral ureteral catheters and partial cystectomy, exploratory laparotomy with extensive lysis of adhesions, repair of colotomy, excision of pelvic cystic lesion. Continue with postop care. Follow-up pathology. 2. UTI. Continue antibiotics per ID recommendations. 3. Seizure disorder. Continue on Keppra. Stable at present. 4. History of rheumatoid arthritis. Continue with analgesics as needed 5. Sjogren's syndrome. Stable at present. Will monitor 6. History of brain tumor. Patient is status post resection. No active issue at this time. Will monitor. 7. Hypotension status post surgical intervention. improved. Disposition and plan: Appears to be improved at this time. Plan to transfer to [facility]. Continue postop Discussed plan of care with Dr. Guardado Problems: Subjective 24 Hr Interval Summary Free Text/Dictation Still reports having abdominal discomfort. No signs of distress. RN at bedside Exam/Review of Systems Vital Signs Vitals Vital Signs Date Time Temp Pulse Resp B/P Pulse Ox O2 Delivery O2 Flow Rate FiO2 05/07/17 14:00 107 31 120/92 97 Nasal Cannula 05/07/17 10:30 2.0 05/07/17 07:00 99.3 Intake and Output 05/06/17 05/06/17 05/07/17 15:00 23:00 07:00 Intake Total 837 ml 1200 ml 1025 ml Output Total 1085 ml 1170 ml 1175 ml Balance -248 ml 30 ml -150 ml Exam Constitutional: alert, oriented, no s/s of distress Head: normocephalic Respiratory: normal air movement Cardiovascular: other (Regular rate to tachycardic) Gastrointestinal: soft, tender 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: CAP BLOCKER II-XII intact, nl mental status, nl speech Skin: other (Surgical site with dressing and abdominal binder in place) Results Result Diagram: 05/07/1744405/07/17444 Results 24 hrs Laboratory Tests Test 05/07/17 04:45 White Blood Count 8.8 # Red Blood Count 2.50 L Hemoglobin 7.4 L Hematocrit 24.3 L Mean Corpuscular Volume 97.2 Mean Corpuscular Hemoglobin 29.6 Mean Corpuscular Hemoglobin Concent 30.5 L Red Cell Distribution Width 15.5 H Platelet Count 239 Mean Platelet Volume 9.7 Neutrophils % 72.3 Lymphocytes % 15.3 Monocytes % 12.1 H Eosinophils % 0.0 Basophils % 0.1 Nucleated Red Blood Cells % 0.0 Neutrophils # (Manual) 6.4 Lymphocytes # 1.4 Monocytes # 1.1 H Eosinophils # 0.0 Basophils # 0.0 Nucleated Red Blood Cells # 0.0 Sodium Level 139 Potassium Level 3.3 L Chloride Level 110 Carbon Dioxide Level 26 Anion Gap 6 #L Blood Urea Nitrogen < 2 L Creatinine 0.41 L Glucose Level 83 # Calcium Level 7.8 L Medications Medications Current Medications Ondansetron HCl (Zofran Inj) 4 mg Q6H PRN IV NAUSEA AND/OR VOMITING Last administered on 05/06/17 01:09; Admin Dose 4 MG; Start 04/23/17 at 22:30 Lorazepam (Ativan) 2 mg Q10MIN PRN IV seizure; Start 04/24/17 at 11:00 Methylprednisolone Sodium Succinate (Solu-Medrol) 20 mg DAILY IV Last administered on 05/07/17 08:50; Admin Dose 20 MG; Start 04/24/17 at 11:30 Folic Acid (Folic Acid) 1 mg DAILY PO Last administered on 05/04/17 09:40; Admin Dose 1 MG; Start 04/24/17 at 14:30 Multivitamins Therapeutic (Theragran) 1 tab DAILY PO Last administered on 09:40; Admin Dose 1 TAB; Start 04/24/17 at 14:30 Primidone (Mysoline) 250 mg TID PO Last administered on 05/04/17 20:44; Admin Dose 250 MG; Start 04/24/17 at 15:00 Sulfasalazine (Azulfidine) 500 mg QID PO Last administered on 05/04/17 20:44; Admin Dose 500 MG; Start 04/24/17 at 17:00 Atorvastatin Calcium (Lipitor) 20 mg DAILY@21 PO Last administered on 20:44; Admin Dose 20 MG; Start 04/24/17 at 21:00 Non-Formulary Medication 1 DOSE = 20 mcg/ 0.08ml DAILY SC Last administered on 05/07/17 08:51; Admin Dose 1 EA; Start 04/25/17 at 09:00 Levetiracetam 100 ml @ 400 mls/hr Q12 IVPB Last administered on 05/07/17 08: 51; Admin Dose 400 MLS/HR; Start 04/30/17 at 21:00 Ceftriaxone Sodium 50 ml @ 100 mls/hr Q24H IVPB Last administered on 16:49; Admin Dose 100 MLS/HR; Start 05/03/17 at 17:00 Fluconazole/ Sodium Chloride (Diflucan 100 Mg/ NS (Pmx)) 50 ml @ 50 mls/hr Q24H IVPB Last administered on 05/06/17 15:51; Admin Dose 50 MLS/HR; Start at 16:30 Hydromorphone HCl (Dilaudid) 0.5 mg Q2H PRN IV PAIN LEVEL 1-5; Start 05/05/17 at 23:30 Pantoprazole (Protonix Tab) 40 mg DAILY@06 PO Last administered on 05/06/17 05 :44; Admin Dose 40 MG; Start 05/06/17 at 06:00 Hydromorphone HCl (Dilaudid) 1 mg Q2 PRN IV pain 6-10; Start 05/05/17 at 23:30 Ketorolac Tromethamine (Toradol) 30 mg Q6H PRN IV PAIN Last administered on 09:18; Admin Dose 30 MG; Start 05/06/17 at 01:00; Stop 05/09/17 at 00:59 Tramadol HCl 50 mg 50 mg Q6H PRN PO PAIN LEVEL 4-7; Start 05/06/17 at 01:00 Sodium Chloride 1,000 ml @ 125 mls/hr Q8H IV Last administered on 8/17/17at 08 :51; Admin Dose 125 MLS/HR; Start 05/06/17 at 01:00 Phenylephrine HCl/ Dextrose (Matty-Syneph/D5W) 500 ml @ 75 mls/hr TITRATE IV ; Start 05/06/17 at 18:30 WALTER PINA May 07, 2017 14:38
--- NOTE | 2017-05-07 15:44 | CONS ---
Date/Time of Note Date/Time of Note DATE: 05/07/17 TIME: 15:42 Assessment/Plan Assessment/Plan Additional Assessment/Plan Abdominal mass status post surgery 05/05/2017 Intermittent hypotension and tachycardia Preserved ejection fraction Rheumatoid arthritis -Blood pressure trend improved but anemia has worsened. As mentioned, hypotension likely multifactorial and patient currently remains asymptomatic with improved blood pressure. No need for any IV pressors at the current time. Would continue to hold any antihypertensives. Maintain potassium above 4.0 and magnesium of 2.0. Consultation Date/Type/Reason Admit Date/Time Apr 23, 2017 at 20:40 Initial Consult Date 04/28/17 Type of Consultation: cv Referring Provider: SHARON GIRALDO MD 24 HR Interval Summary Free Text/Dictation Denies shortness of breath, palpitations or chest pain. Still complaining of pain at surgical incision site Exam/Review of Systems Vital Signs Vitals Vital Signs Date Time Temp Pulse Resp B/P Pulse Ox O2 Delivery O2 Flow Rate FiO2 05/07/17 15:01 108 21 107/68 100 Nasal Cannula 05/07/17 10:30 2.0 05/07/17 07:00 99.3 Intake and Output 05/06/17 05/06/17 05/07/17 15:00 23:00 07:00 Intake Total 837 ml 1200 ml 1025 ml Output Total 1085 ml 1170 ml 1175 ml Balance -248 ml 30 ml -150 ml Exam No apparent distress, family at bedside Constitutional: alert, oriented Head: normocephalic Respiratory: other (Coarse breath sounds bilaterally, no wheezing) Cardiovascular: other (S1-S2 heard), regular rate and rhythm Gastrointestinal: bowel sounds, other (Bandages on abdomen), soft Extremities: edema (Trace) Results Result Diagram: 05/07/17 0445 05/07/17 0445 Results 24 hrs Laboratory Tests Test 05/07/17 04:45 White Blood Count 8.8 # Red Blood Count 2.50 L Hemoglobin 7.4 L Hematocrit 24.3 L Mean Corpuscular Volume 97.2 Mean Corpuscular Hemoglobin 29.6 Mean Corpuscular Hemoglobin Concent 30.5 L Red Cell Distribution Width 15.5 H Platelet Count 239 Mean Platelet Volume 9.7 Neutrophils % 72.3 Lymphocytes % 15.3 Monocytes % 12.1 H Eosinophils % 0.0 Basophils % 0.1 Nucleated Red Blood Cells % 0.0 Neutrophils # (Manual) 6.4 Lymphocytes # 1.4 Monocytes # 1.1 H Eosinophils # 0.0 Basophils # 0.0 Nucleated Red Blood Cells # 0.0 Sodium Level 139 Potassium Level 3.3 L Chloride Level 110 Carbon Dioxide Level 26 Anion Gap 6 #L Blood Urea Nitrogen < 2 L Creatinine 0.41 L Glucose Level 83 # Calcium Level 7.8 L Medications Medications Current Medications Ondansetron HCl (Zofran Inj) 4 mg Q6H PRN IV NAUSEA AND/OR VOMITING Last administered on 05/06/17 01:09; Admin Dose 4 MG; Start 04/23/17 at 22:30 Lorazepam (Ativan) 2 mg Q10MIN PRN IV seizure; Start 04/24/17 at 11:00 Methylprednisolone Sodium Succinate (Solu-Medrol) 20 mg DAILY IV Last administered on 05/07/17 08:50; Admin Dose 20 MG; Start 04/24/17 at 11:30 Folic Acid (Folic Acid) 1 mg DAILY PO Last administered on 05/04/17 09:40; Admin Dose 1 MG; Start 04/24/17 at 14:30 Multivitamins Therapeutic (Theragran) 1 tab DAILY PO Last administered on 09:40; Admin Dose 1 TAB; Start 04/24/17 at 14:30 Primidone (Mysoline) 250 mg TID PO Last administered on 05/04/17 20:44; Admin Dose 250 MG; Start 04/24/17 at 15:00 Sulfasalazine (Azulfidine) 500 mg QID PO Last administered on 05/04/17 20:44; Admin Dose 500 MG; Start 04/24/17 at 17:00 Atorvastatin Calcium (Lipitor) 20 mg DAILY@21 PO Last administered on 20:44; Admin Dose 20 MG; Start 04/24/17 at 21:00 Non-Formulary Medication 1 DOSE = 20 mcg/ 0.08ml DAILY SC Last administered on 05/07/17 08:51; Admin Dose 1 EA; Start 04/25/17 at 09:00 Levetiracetam 100 ml @ 400 mls/hr Q12 IVPB Last administered on 05/07/17 08: 51; Admin Dose 400 MLS/HR; Start 04/30/17 at 21:00 Ceftriaxone Sodium 50 ml @ 100 mls/hr Q24H IVPB Last administered on 16:49; Admin Dose 100 MLS/HR; Start 05/03/17 at 17:00 Fluconazole/ Sodium Chloride (Diflucan 100 Mg/ NS (Pmx)) 50 ml @ 50 mls/hr Q24H IVPB Last administered on 05/06/17 15:51; Admin Dose 50 MLS/HR; Start at 16:30 Hydromorphone HCl (Dilaudid) 0.5 mg Q2H PRN IV PAIN LEVEL 1-5; Start 05/05/17 at 23:30 Pantoprazole (Protonix Tab) 40 mg DAILY@06 PO Last administered on 05/06/17 05 :44; Admin Dose 40 MG; Start 05/06/17 at 06:00 Hydromorphone HCl (Dilaudid) 1 mg Q2 PRN IV pain 6-10; Start 05/05/17 at 23:30 Ketorolac Tromethamine (Toradol) 30 mg Q6H PRN IV PAIN Last administered on 15:13; Admin Dose 30 MG; Start 05/06/17 at 01:00; Stop 05/09/17 at 00:59 Tramadol HCl 50 mg 50 mg Q6H PRN PO PAIN LEVEL 4-7; Start 05/06/17 at 01:00 Sodium Chloride (NS) 1,000 ml @ 125 mls/hr Q8H IV Last administered on 08:51; Admin Dose 125 MLS/HR; Start 05/06/17 at 01:00 Frank Willson DO May 07, 2017 15:44
[2017-05-07] MEDS: FLUCONAZOLE 100 MG/NS (PMX) 50 ML IVPB SCH (16:05)
[2017-05-07] MEDS: CEFTRIAXONE 1 GM/50 ML (PMX) 50 ML IVPB SCH (18:16)
--- NOTE | 2017-05-07 20:35 | PN ---
Date/Time of Note Date/Time of Note DATE: 05/07/17 TIME: 20:29 Assessment/Plan VTE Prophylaxis VTE Prophylaxis Intervention: SCD's Lines/Catheters IV Catheter Type (from Nrs): Central Line Central line still needed: Yes Urinary Cath still in place: Yes Reason Cath still needed: other (indicate) (Urological surgery) Assessment/Plan Chief Complaint/Hosp Course Patient is postop day 2. she underwent partial cystectomy and excision of pelvic tumor. She is doing reasonably well ,continue the present treatment, pain management, IV fluids, keep the Stubbs catheter in place and continue the antibiotic Problems: Subjective 24 Hr Interval Summary Constitutional: other (Patient complains of pain from her abdominal incision) Eyes: no complaints ENT: no complaints Respiratory: no complaints Cardiovascular: no complaints Gastrointestinal: No flatus, No nausea, No vomiting Genitourinary: other (Stubbs catheter draining clear to slightly blood-tinged urine) Musculoskeletal: no complaints Skin: no complaints Neurologic: no complaints Exam/Review of Systems Vital Signs Vitals Vital Signs Date Time Temp Pulse Resp B/P Pulse Ox O2 Delivery O2 Flow Rate FiO2 05/07/17 17:12 98.8 91 19 110/55 95 05/07/17 16:30 Nasal Cannula 05/07/17 10:30 2.0 Intake and Output 05/06/17 05/06/17 05/07/17 15:00 23:00 07:00 Intake Total 837 ml 1200 ml 1025 ml Output Total 1085 ml 1170 ml 1175 ml Balance -248 ml 30 ml -150 ml Exam Constitutional: alert Psych: no complaints Head: normocephalic Eyes: nl conjunctiva ENMT: nl external ears & nose Neck: supple Respiratory: normal air movement Gastrointestinal: other (Incisional pain) Genitourinary - Female: other (Stubbs catheter draining clear to blood-tinged urine) Extremities: other (Arthritis) Results Result Diagram: 05/07/175 05/07/175 Results 24 hrs Laboratory Tests Test 05/07/17 04:45 White Blood Count 8.8 # Red Blood Count 2.50 L Hemoglobin 7.4 L Hematocrit 24.3 L Mean Corpuscular Volume 97.2 Mean Corpuscular Hemoglobin 29.6 Mean Corpuscular Hemoglobin Concent 30.5 L Red Cell Distribution Width 15.5 H Platelet Count 239 Mean Platelet Volume 9.7 Neutrophils % 72.3 Lymphocytes % 15.3 Monocytes % 12.1 H Eosinophils % 0.0 Basophils % 0.1 Nucleated Red Blood Cells % 0.0 Neutrophils # (Manual) 6.4 Lymphocytes # 1.4 Monocytes # 1.1 H Eosinophils # 0.0 Basophils # 0.0 Nucleated Red Blood Cells # 0.0 Sodium Level 139 Potassium Level 3.3 L Chloride Level 110 Carbon Dioxide Level 26 Anion Gap 6 #L Blood Urea Nitrogen < 2 L Creatinine 0.41 L Glucose Level 83 # Calcium Level 7.8 L Medications Medications Current Medications Ondansetron HCl (Zofran Inj) 4 mg Q6H PRN IV NAUSEA AND/OR VOMITING Last administered on 05/06/17 01:09; Admin Dose 4 MG; Start 04/23/17 at 22:30 Lorazepam (Ativan) 2 mg Q10MIN PRN IV seizure; Start 04/24/17 at 11:00 Methylprednisolone Sodium Succinate (Solu-Medrol) 20 mg DAILY IV Last administered on 05/07/17 08:50; Admin Dose 20 MG; Start 04/24/17 at 11:30 Folic Acid (Folic Acid) 1 mg DAILY PO Last administered on 05/04/17 09:40; Admin Dose 1 MG; Start 04/24/17 at 14:30 Multivitamins Therapeutic (Theragran) 1 tab DAILY PO Last administered on 09:40; Admin Dose 1 TAB; Start 04/24/17 at 14:30 Primidone (Mysoline) 250 mg TID PO Last administered on 05/04/17 20:44; Admin Dose 250 MG; Start 04/24/17 at 15:00 Sulfasalazine (Azulfidine) 500 mg QID PO Last administered on 05/04/17 20:44; Admin Dose 500 MG; Start 04/24/17 at 17:00 Atorvastatin Calcium (Lipitor) 20 mg DAILY@21 PO Last administered on 20:44; Admin Dose 20 MG; Start 04/24/17 at 21:00 Non-Formulary Medication 1 DOSE = 20 mcg/ 0.08ml DAILY SC Last administered on 05/07/17 08:51; Admin Dose 1 EA; Start 04/25/17 at 09:00 Levetiracetam 100 ml @ 400 mls/hr Q12 IVPB Last administered on 05/07/17 08: 51; Admin Dose 400 MLS/HR; Start 04/30/17 at 21:00 Ceftriaxone Sodium 50 ml @ 100 mls/hr Q24H IVPB Last administered on 18:16; Admin Dose 100 MLS/HR; Start 05/03/17 at 17:00 Fluconazole/ Sodium Chloride (Diflucan 100 Mg/ NS (Pmx)) 50 ml @ 50 mls/hr Q24H IVPB Last administered on 05/07/17 16:05; Admin Dose 50 MLS/HR; Start at 16:30 Hydromorphone HCl (Dilaudid) 0.5 mg Q2H PRN IV PAIN LEVEL 1-5; Start 05/05/17 at 23:30 Pantoprazole (Protonix Tab) 40 mg DAILY@06 PO Last administered on 05/06/17 05 :44; Admin Dose 40 MG; Start 05/06/17 at 06:00 Hydromorphone HCl (Dilaudid) 1 mg Q2 PRN IV pain 6-10; Start 05/05/17 at 23:30 Ketorolac Tromethamine (Toradol) 30 mg Q6H PRN IV PAIN Last administered on 15:13; Admin Dose 30 MG; Start 05/06/17 at 01:00; Stop 05/09/17 at 00:59 Tramadol HCl 50 mg 50 mg Q6H PRN PO PAIN LEVEL 4-7; Start 05/06/17 at 01:00 Sodium Chloride (NS) 1,000 ml @ 125 mls/hr Q8H IV Last administered on 08:51; Admin Dose 125 MLS/HR; Start 05/06/17 at 01:00 TRESSA SIMMONS MD May 07, 2017 20:34
[2017-05-07] MEDS: ATORVASTATIN 20 MG TAB PO SCH (21:25)
[2017-05-08 02:12] VITALS: BP 111/58; RESP 18
[2017-05-08] MEDS: PANTOPRAZOLE (EC) 40 MG TAB PO SCH (05:14)
[2017-05-08] MEDS: KETOROLAC 30 MG INJ IV PRN ×2 (05:14→10:32)
[2017-05-08] MEDS: SOD CHLORIDE 0.9% 1,000 ML IV SCH ×2 (05:14→08:48)
[2017-05-08 07:25] VITALS: BP 119/56; RESP 20
[2017-05-08 07:50] LABS: BASOPHILS % 0.3 % (0.0-2.0); EOSINOPHILS # 0.2 10^3/ul (0.0-0.5); EOSINOPHILS % 2.3 % (0.0-7.0); HEMATOCRIT 23.4 % (37.0-47.0); HEMOGLOBIN 7.2 g/dl (12.0-16.0); LYMPHOCYTES # 1.2 10^3/ul (0.8-2.9); LYMPHOCYTES % 16.3 % (15.0-51.0); MEAN CORPUSCULAR HEMOGLOBIN 29.4 pg (29.0-33.0); MEAN CORPUSCULAR HGB CONC 30.8 g/dl (32.0-37.0); MEAN CORPUSCULAR VOLUME 95.5 fl (82.0-101.0); MONOCYTE # 0.6 10^3/ul (0.3-0.9); MONOCYTES % 8.2 % (0.0-11.0); NEUTROPHILS % 72.5 % (39.0-77.0); PLATELET COUNT 229 10^3/UL (140-415); RED BLOOD COUNT 2.45 10^6/ul (4.20-5.40); WHITE BLOOD COUNT 7.3 10^3/ul (4.8-10.8)
--- NOTE | 2017-05-08 07:57 | PN ---
Date/Time of Note Date/Time of Note DATE: 05/08/17 TIME: 07:52 Assessment/Plan VTE Prophylaxis VTE Prophylaxis Intervention: SCD's Lines/Catheters IV Catheter Type (from Nrsg): Central Line Central line still needed: Yes Urinary Cath still in place: Yes Reason Cath still needed: other (indicate) Assessment/Plan Chief Complaint/Hosp Course 1. 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 Status post transurethral resection of bladder tumors on 04/29/2017 followed by cystoscopy and insertion of bilateral ureteral catheters along with partial cystectomy on 05/05/2017. S/P exploratory laparotomy with extensive lysis of adhesions; repair of colotomy; implantation of biologic over the colon repair and bladder repair; excision of pelvic cystic lesion; and excision of previous scar and excessive abdominal skin and fat on 05/05/2017. 2. UTI. Continue antimicrobials as per ID. 3. Seizure disorder. Continue anticonvulsants. 4. Rheumatoid arthritis. Continue current care. 5. Sjogren's syndrome. Continue current care. 6. History of brain tumor. Status post resection. 7. Normocytic, normochromic anemia. Most probably anemia chronic disease. Monitor H&H closely. 8. Fluids, electrolytes, and nutrition. NPO. IV fluids. 9. DVT prophylaxis. Bilateral sequential compression devices. 10. Plan. Postoperative management as per Urology and Surgery. Replete potassium. Change IV fluid to dextrose containing fluids. Case discussed with Dr. Guardado. Problems: Subjective 24 Hr Interval Summary Free Text/Dictation Feeling tired. Pain well controlled. Had an episode of hypoglycemia in the morning. Exam/Review of Systems Vital Signs Vitals Vital Signs Date Time Temp Pulse Resp B/P Pulse Ox O2 Delivery O2 Flow Rate FiO2 05/08/17 07:25 98.3 92 20 119/56 95 05/07/17 16:30 Nasal Cannula 05/07/17 10:30 2.0 Intake and Output 05/07/17 05/07/17 05/08/17 15:00 23:00 07:00 Intake Total 1000 ml 800 ml 1000 ml Output Total 1055 ml 70 ml 1220 ml Balance -55 ml 730 ml -220 ml Exam General: Adequately build 56 year-old male lying in bed in no apparent distress. HEENT: Normocephalic, atraumatic. Eyes: Anicteric sclerae, conjunctivae clear. ENT: Nasal septum midline, oral mucosa moist. Neck supple, no JVD noticed. Respiratory: Bilaterally clear breath sounds. No use of accessory muscles of respiration. No adventitious breath sounds. Cardiovascular: S1, S2 heard. No murmurs or gallops. Abdomen: Abdominal binder. UCHE drain draining sanguinous secretions. Genitourinary: Deferred. Extremities: No cyanosis, no clubbing, no edema. Peripheral pulses palpable. Chronic deformities of bilateral metacarpal joints. Neurologic: Cranial nerves II through XII grossly intact. The patient is awake, alert, and oriented. Skin: Normal skin turgor. No skin rashes. Results Result Diagram: 05/07/1744405/07/17444 Results 24 hrs Laboratory Tests Test 05/08/17 07:28 White Blood Count 7.3 Red Blood Count 2.45 L Hemoglobin 7.2 L Hematocrit 23.4 L Mean Corpuscular Volume 95.5 Mean Corpuscular Hemoglobin 29.4 Mean Corpuscular Hemoglobin Concent 30.8 L Red Cell Distribution Width 15.0 H Platelet Count 229 Mean Platelet Volume 10.0 Neutrophils % 72.5 Lymphocytes % 16.3 Monocytes % 8.2 Eosinophils % 2.3 Basophils % 0.3 Nucleated Red Blood Cells % 0.0 Neutrophils # (Manual) 5 Lymphocytes # 1.2 Monocytes # 0.6 Eosinophils # 0.2 Basophils # 0.0 Nucleated Red Blood Cells # 0.0 Medications Medications Current Medications Ondansetron HCl (Zofran Inj) 4 mg Q6H PRN IV NAUSEA AND/OR VOMITING Last administered on 05/06/17 01:09; Admin Dose 4 MG; Start 04/23/17 at 22:30 Lorazepam (Ativan) 2 mg Q10MIN PRN IV seizure; Start 04/24/17 at 11:00 Methylprednisolone Sodium Succinate (Solu-Medrol) 20 mg DAILY IV Last administered on 05/07/17 08:50; Admin Dose 20 MG; Start 04/24/17 at 11:30 Folic Acid (Folic Acid) 1 mg DAILY PO Last administered on 05/04/17 09:40; Admin Dose 1 MG; Start 04/24/17 at 14:30 Multivitamins Therapeutic (Theragran) 1 tab DAILY PO Last administered on 09:40; Admin Dose 1 TAB; Start 04/24/17 at 14:30 Primidone (Mysoline) 250 mg TID PO Last administered on 05/07/17 21:26; Admin Dose 250 MG; Start 04/24/17 at 15:00 Sulfasalazine (Azulfidine) 500 mg QID PO Last administered on 05/07/17 21:26; Admin Dose 500 MG; Start 04/24/17 at 17:00 Atorvastatin Calcium (Lipitor) 20 mg DAILY@21 PO Last administered on 21:25; Admin Dose 20 MG; Start 04/24/17 at 21:00 Non-Formulary Medication 1 DOSE = 20 mcg/ 0.08ml DAILY SC Last administered on 05/07/17 08:51; Admin Dose 1 EA; Start 04/25/17 at 09:00 Levetiracetam 100 ml @ 400 mls/hr Q12 IVPB Last administered on 05/07/17 20: 48; Admin Dose 400 MLS/HR; Start 04/30/17 at 21:00 Ceftriaxone Sodium 50 ml @ 100 mls/hr Q24H IVPB Last administered on 18:16; Admin Dose 100 MLS/HR; Start 05/03/17 at 17:00 Fluconazole/ Sodium Chloride (Diflucan 100 Mg/ NS (Pmx)) 50 ml @ 50 mls/hr Q24H IVPB Last administered on 05/07/17 16:05; Admin Dose 50 MLS/HR; Start at 16:30 Hydromorphone HCl (Dilaudid) 0.5 mg Q2H PRN IV PAIN LEVEL 1-5; Start 05/05/17 at 23:30 Pantoprazole (Protonix Tab) 40 mg DAILY@06 PO Last administered on 05/08/17 05 :14; Admin Dose 40 MG; Start 05/06/17 at 06:00 Hydromorphone HCl (Dilaudid) 1 mg Q2 PRN IV pain 6-10; Start 05/05/17 at 23:30 Ketorolac Tromethamine (Toradol) 30 mg Q6H PRN IV PAIN Last administered on 05:14; Admin Dose 30 MG; Start 05/06/17 at 01:00; Stop 05/09/17 at 00:59 Tramadol HCl 50 mg 50 mg Q6H PRN PO PAIN LEVEL 4-7; Start 05/06/17 at 01:00 Sodium Chloride (NS) 1,000 ml @ 125 mls/hr Q8H IV Last administered on 05:14; Admin Dose 125 MLS/HR; Start 05/06/17 at 01:00 LATASHA RICHARDSON NP May 08, 2017 07:56
[2017-05-08 08:11] LABS: CALCIUM 7.8 mg/dl (8.4-10.2); CREATININE 0.37 mg/dl (0.44-1.00); POTASSIUM 3.4 mmol/L (3.5-5.1)
[2017-05-08] MEDS: PRIMIDONE 250 MG TAB PO SCH ×3 (08:45→21:13)
[2017-05-08] MEDS: SULFASALAZINE 500 MG TAB PO SCH ×4 (08:45→21:13)
[2017-05-08] MEDS: MULTIVITAMINS THERAPEUTIC TAB PO SCH (08:46)
[2017-05-08] MEDS: FOLIC ACID 1 MG TAB PO SCH (08:48)
[2017-05-08] MEDS: METHYLPREDNISOLONE 40 MG INJ IV SCH (08:48)
[2017-05-08] MEDS: TERIPARATIDE 600 MCG/2.4 ML SC SCH (08:49)
[2017-05-08] MEDS: LEVETIRACETAM 500 MG (PMX) 100 ML IVPB SCH ×2 (08:52→21:23)
[2017-05-08 09:53] LABS: HEMATOCRIT 26.5 % (37.0-47.0); HEMOGLOBIN 8.1 g/dl (12.0-16.0)
--- NOTE | 2017-05-08 10:22 | PN ---
DATE: 05/08/2017 SUBJECTIVE DATA: The patient states she is feeling well. Does have some abdominal pain but is relatively comfortable. She has not passed any flatus. Does not have nausea and vomiting. OBJECTIVE DATA: GENERAL: The patient is a well-developed, well-nourished female, who is in no acute distress. VITAL SIGNS: Temperature 98.3, pulse 92 per minute and regular, respirations 20, blood pressure 119/56, pulse oximetry 97 percent on room air. SKIN: No ecchymosis, no petechiae or rashes. HEENT: Normocephalic, no evidence of trauma. Pupils equal, round, react to light and accommodation. Sclerae nonicteric. Oral mucosa is moist without lesions. Tongue is well papillated. There is no gingival hyperplasia. No hypertrophy of Waldeyer's ring. NECK: Supple. No jugular distention or thyroid enlargement. There is a triple-lumen catheter in the right internal jugular vein. Insertion site looks dry and not erythematous. CHEST: Decreased breath sounds in both bases but no rhonchi, wheezes, rales or rubs. No pain on percussion of spine, sternum, clavicles or ribs. HEART: Regular sinus rhythm. No S3, S4, murmurs, no rubs. ABDOMEN: Mildly distended. There is a surgical dressing and binder in place. There is a Freddy-Dang tube drain draining sanguinous fluid. There are no bowel sounds. EXTREMITIES: No clubbing, no edema or cyanosis. No palpable cords or Homans sign. There are deformities associated with rheumatoid arthritis. NEUROLOGIC: No focal neurologic abnormalities. LABORATORY: White blood cell count 7300, hemoglobin 7.2, hematocrit 23.4, platelet count 229,000. Sodium 139, potassium 3.4, creatinine 0.37, BUN 2. ASSESSMENT: 1. Urachal carcinoma, status post surgical debulking and partial cystectomy. This is day #3 postoperative. 2. Rheumatoid arthritis. 3. Sjogren syndrome. 4. History of benign brain tumor. DISCUSSION: I have had again a long discussion with the patient and answered her multiple questions. The patient's son has served in translation via telephone. The patient has had questions about the use of a biological dressing. I have explained that this is used to help close the wound and that her own body tissues will grow into this membrane. I have also discussed again the low-grade nature of this tumor and the fact that it grows very slowly. This makes it less responsive to chemotherapy and radiation therapy. Past tumor behavior has been that it took several years for regrowth. We will perform other studies on the tissue remained at surgery to determine whether or not it may respond to various agents such as checkpoint inhibitors. Patient's hemoglobin has dropped to 7.2. The patient is not symptomatic. If it drops any further; however, I feel red blood cell transfusion will be indicated. Dictated By: Titi Eid MD /brandon/[email or web address] /Document#: [id number]
[2017-05-08] MEDS: D5W-0.45 NACL + KCL 10 MEQ 1,000 ML IV SCH ×2 (10:27→20:30)
--- NOTE | 2017-05-08 10:28 | PN ---
Date/Time of Note Date/Time of Note DATE: 05/08/17 TIME: 10:23 Assessment/Plan Lines/Catheters IV Catheter Type (from Nrs): Central Line Partida in Place (from Nrs): Yes Assessment/Plan Chief Complaint/Hosp Course 1. 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 11 x 9 cm, Partial cystectomy & bilateral ureteral stent placement; no bm/flatus -follow path -danika growing: antifungals per ID -pain management -will keep patient npo for now. Will need tpn in the interim-nutrition consult 2. Leukocytosis: reactive +/- infective: normalized: CT chest: New trace left pleural effusion with subsegmental left greater than right basilar atelectasis -monitor -is -ambulation -ice pack to abd wall 3.Hypotension w tachycardia: r/o cardiac event: cta negative, trop neg, echo: preserved EF, cards recs noted; BP improved -supportive 4. Normocytic anemia: no acute bleed noted -monitor -transfuse as needed 5. History of pelvic ca, brain tumor: concern for recurrence -as above -per onc 6. UTI: multiorganism pathogens -abx per sensitivity Patient seen and examined in collaboration with Dr. Jonatan De Los Santos. Thank you. Problems: Subjective 24 Hr Interval Summary Nutrition consult pending for tpn. Feels well. Min pain in abdomen. UCHE output serosanguineous. No fevers, chills, sob, congested cough, sz, rash. Exam/Review of Systems Vital Signs Vitals Vital Signs Date Time Temp Pulse Resp B/P Pulse Ox O2 Delivery O2 Flow Rate FiO2 05/08/17 07:25 98.3 92 20 119/56 95 05/07/17 16:30 Nasal Cannula 05/07/17 10:30 2.0 Intake and Output 05/07/17 05/07/17 05/08/17 15:00 23:00 07:00 Intake Total 1000 ml 800 ml 1000 ml Output Total 1055 ml 70 ml 1220 ml Balance -55 ml 730 ml -220 ml Exam Free Text/Dictation Constitutional: alert, oriented, pleasant, Psych: anxiety, no complaints Head: atraumatic, normocephalic Eyes: nl lids, nl sclera ENMT: mucosa pink and moist, nl nasal mucosa & septum Neck: non-tender, supple Respiratory: clear to auscultation, normal air movement Cardiovascular: regular rate and rhythm, No edema Gastrointestinal: soft, tender, rotund, surgical incision with maurizio, no periwound erythema/drainage : no dysuria, partida yellow urine Musculoskeletal: nl extremities to inspection Extremities: normal pulses, No edema 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: nl mental status, nl speech, nl strength Lymph: No nl lymph nodes Results Result Diagram: 05/08/1791905/08/17 0920 JENIFER CABAN NP May 08, 2017 10:28
[2017-05-08] MEDS: HYDROmorphONE 1 MG/ML SYG IV PRN ×2 (11:24→21:14)
[2017-05-08] MEDS ORDERED: POTASSIUM CHLORIDE 30 MEQ in DEXTROSE 5% 250 ML IVPB ONE (12:00)
[2017-05-08] MEDS ORDERED: MAGNESIUM SULFATE 2 GM/50 ML 50 ML IVPB ONE (12:00)
--- NOTE | 2017-05-08 13:41 | RADRPT ---
Vent Rate: 95 bpm RR Interval: 0 msec AK Interval: 142 msec QRS Duration: 84 msec QT Interval: 366 msec QTC Interval: 459 msec P-R-T [place]: 39 - 25 - 37 degrees Normal sinus rhythm Normal ECG Electronically Signed By: Titi Gupta [id number]
--- NOTE | 2017-05-08 14:11 | CONS ---
Date/Time of Note Date/Time of Note DATE: 05/08/17 TIME: 14:09 Assessment/Plan Assessment/Plan Chief Complaint/Hosp Course SUBJECTIVE: No events overnight. Transferred to [facility] floor. Awake, looks comfortable, no fevers ANTIMICROBIALS: Rocephin, fluconazole. MICROBIOLOGY: Intra-abdominal drainage culture grew Ely albicans and alpha-hemolytic strep species. Also, strep group D, not enterococcus. Urine culture on April 29 grew Ely albicans. GENERAL: A well-developed, middle-aged woman who is awake, in no distress. HEENT: Head atraumatic, normocephalic. Sclerae anicteric. Buccal mucosa dry. NECK: Supple. CHEST: Rise symmetrical. Breath sounds clear. HEART: S1, S2. ABDOMEN: Soft, bowel sounds present. The patient still has pain on the left side. EXTREMITIES: Without cyanosis. ASSESSMENT: 1. Pelvic abscess status post CT-guided drainage with culture growing fungus and streptococcus, completed antibiotics 2. Status post ely albicans urinary tract infection. 3. Urachal carcinoma, status post surgical debulking and partial cystectomy, postop day #3 4. Rheumatoid arthritis. PLAN: The patient remains stable. We are going to discontinue antibiotics and observe, follow recommendations of consultants, repeat cultures as needed DW staff Problems: Consultation Date/Type/Reason Admit Date/Time Apr 23, 2017 at 20:40 Initial Consult Date 04/28/17 Type of Consultation: id Referring Provider: SHARON GIRALDO MD Exam/Review of Systems Vital Signs Vitals Vital Signs Date Time Temp Pulse Resp B/P Pulse Ox O2 Delivery O2 Flow Rate FiO2 05/08/17 07:25 98.3 92 20 119/56 95 05/07/17 16:30 Nasal Cannula 05/07/17 10:30 2.0 Intake and Output 05/07/17 05/07/17 05/08/17 15:00 23:00 07:00 Intake Total 1000 ml 800 ml 1000 ml Output Total 1055 ml 70 ml 1220 ml Balance -55 ml 730 ml -220 ml Results Result Diagram: 05/08/1791905/08/17919 Results 24 hrs Laboratory Tests Test 05/08/17 07:28 05/08/17 09:20 White Blood Count 7.3 Red Blood Count 2.45 L Hemoglobin 7.2 L 8.1 L Hematocrit 23.4 L 26.5 L Mean Corpuscular Volume 95.5 Mean Corpuscular Hemoglobin 29.4 Mean Corpuscular Hemoglobin Concent 30.8 L Red Cell Distribution Width 15.0 H Platelet Count 229 Mean Platelet Volume 10.0 Neutrophils % 72.5 Lymphocytes % 16.3 Monocytes % 8.2 Eosinophils % 2.3 Basophils % 0.3 Nucleated Red Blood Cells % 0.0 Neutrophils # (Manual) 5 Lymphocytes # 1.2 Monocytes # 0.6 Eosinophils # 0.2 Basophils # 0.0 Nucleated Red Blood Cells # 0.0 Sodium Level 139 Potassium Level 3.4 L Chloride Level 107 Carbon Dioxide Level 19 L Anion Gap 16 # Blood Urea Nitrogen 2 L Creatinine 0.37 L Glucose Level 46 #*L 46 *L Calcium Level 7.8 L Magnesium Level 1.5 L Medications Medications Current Medications Ondansetron HCl (Zofran Inj) 4 mg Q6H PRN IV NAUSEA AND/OR VOMITING Last administered on 05/06/17 01:09; Admin Dose 4 MG; Start 04/23/17 at 22:30 Lorazepam (Ativan) 2 mg Q10MIN PRN IV seizure; Start 04/24/17 at 11:00 Methylprednisolone Sodium Succinate (Solu-Medrol) 20 mg DAILY IV Last administered on 05/08/17 08:48; Admin Dose 20 MG; Start 04/24/17 at 11:30 Folic Acid (Folic Acid) 1 mg DAILY PO Last administered on 05/08/17 08:48; Admin Dose 1 MG; Start 04/24/17 at 14:30 Multivitamins Therapeutic (Theragran) 1 tab DAILY PO Last administered on 08:46; Admin Dose 1 TAB; Start 04/24/17 at 14:30 Primidone (Mysoline) 250 mg TID PO Last administered on 05/08/17 13:58; Admin Dose 250 MG; Start 04/24/17 at 15:00 Sulfasalazine (Azulfidine) 500 mg QID PO Last administered on 05/08/17 13:58; Admin Dose 500 MG; Start 04/24/17 at 17:00 Atorvastatin Calcium (Lipitor) 20 mg DAILY@21 PO Last administered on 21:25; Admin Dose 20 MG; Start 04/24/17 at 21:00 Non-Formulary Medication 1 DOSE = 20 mcg/ 0.08ml DAILY SC Last administered on 05/08/17 08:49; Admin Dose 1 EA; Start 04/25/17 at 09:00 Levetiracetam 100 ml @ 400 mls/hr Q12 IVPB Last administered on 05/08/17 08: 52; Admin Dose 400 MLS/HR; Start 04/30/17 at 21:00 Ceftriaxone Sodium 50 ml @ 100 mls/hr Q24H IVPB Last administered on 18:16; Admin Dose 100 MLS/HR; Start 05/03/17 at 17:00 Fluconazole/ Sodium Chloride (Diflucan 100 Mg/ NS (Pmx)) 50 ml @ 50 mls/hr Q24H IVPB Last administered on 05/07/17 16:05; Admin Dose 50 MLS/HR; Start at 16:30 Hydromorphone HCl (Dilaudid) 0.5 mg Q2H PRN IV PAIN LEVEL 1-5; Start 05/05/17 at 23:30 Pantoprazole (Protonix Tab) 40 mg DAILY@06 PO Last administered on 05/08/17 05 :14; Admin Dose 40 MG; Start 05/06/17 at 06:00 Hydromorphone HCl (Dilaudid) 1 mg Q2 PRN IV pain 6-10 Last administered on 05/08 11:24; Admin Dose 1 MG; Start 05/05/17 at 23:30 Ketorolac Tromethamine (Toradol) 30 mg Q6H PRN IV PAIN Last administered on 10:32; Admin Dose 30 MG; Start 05/06/17 at 01:00; Stop 05/09/17 at 00:59 Tramadol HCl 50 mg 50 mg Q6H PRN PO PAIN LEVEL 4-7; Start 05/06/17 at 01:00 Potassium Chloride 30 meq/ Dextrose 265 ml @ 88.333 mls/ hr ONCE ONCE IVPB Last administered on 05/08/17 11:23; Admin Dose 88.333 MLS/HR; Start 05/08/17 at 12:00; Stop 05/08/17 at 14:59 Potassium Chloride/Dextrose/ Sod Cl (D5-1/2ns + KCl 10 Meq) 1,000 ml @ 100 mls/ hr Q10H IV Last administered on 05/08/17t 10:27; Admin Dose 100 MLS/HR; Start 05/08/17 at 10:30 JENNA SAAVEDRA NP May 08, 2017 14:11
[2017-05-08 14:25] VITALS: BP 111/56; RESP 18
--- NOTE | 2017-05-08 16:49 | CONS ---
Date/Time of Note Date/Time of Note DATE: 05/08/17 TIME: 16:47 Assessment/Plan Assessment/Plan Additional Assessment/Plan Abdominal mass status post surgery 05/05/2017 Postoperative hypotension and tachycardia Preserved ejection fraction Rheumatoid arthritis Acute blood loss anemia status post blood transfusion -Blood pressure trend improved. As mentioned, hypotension likely multifactorial and patient currently remains asymptomatic with improved blood pressure. No need for any IV pressors at the current time. Would continue to hold any antihypertensives. Maintain potassium above 4.0 and magnesium of 2.0. Consultation Date/Type/Reason Admit Date/Time Apr 23, 2017 at 20:40 Initial Consult Date 04/28/17 Type of Consultation: cv Referring Provider: SHARON GIRALDO MD 24 HR Interval Summary Free Text/Dictation Denies chest pain, shortness of breath or palpitations. Overall feeling better Exam/Review of Systems Vital Signs Vitals Vital Signs Date Time Temp Pulse Resp B/P Pulse Ox O2 Delivery O2 Flow Rate FiO2 05/08/17 14:25 98.6 76 18 111/56 96 05/07/17 16:30 Nasal Cannula 05/07/17 10:30 2.0 Intake and Output 05/07/17 05/07/17 05/08/17 15:00 23:00 07:00 Intake Total 1000 ml 800 ml 1000 ml Output Total 1055 ml 70 ml 1220 ml Balance -55 ml 730 ml -220 ml Exam No apparent distress Constitutional: alert, oriented Head: normocephalic Respiratory: other (Coarse breath sounds bilaterally, no wheezing) Cardiovascular: other (S1-S2 heard), regular rate and rhythm Gastrointestinal: bowel sounds (Bowel sounds positive), soft Extremities: edema (Trace) Results Result Diagram: 05/08/1720 05/08/17 0920 Results 24 hrs Laboratory Tests Test 05/08/17 07:28 05/08/17 09:20 White Blood Count 7.3 Red Blood Count 2.45 L Hemoglobin 7.2 L 8.1 L Hematocrit 23.4 L 26.5 L Mean Corpuscular Volume 95.5 Mean Corpuscular Hemoglobin 29.4 Mean Corpuscular Hemoglobin Concent 30.8 L Red Cell Distribution Width 15.0 H Platelet Count 229 Mean Platelet Volume 10.0 Neutrophils % 72.5 Lymphocytes % 16.3 Monocytes % 8.2 Eosinophils % 2.3 Basophils % 0.3 Nucleated Red Blood Cells % 0.0 Neutrophils # (Manual) 5 Lymphocytes # 1.2 Monocytes # 0.6 Eosinophils # 0.2 Basophils # 0.0 Nucleated Red Blood Cells # 0.0 Sodium Level 139 Potassium Level 3.4 L Chloride Level 107 Carbon Dioxide Level 19 L Anion Gap 16 # Blood Urea Nitrogen 2 L Creatinine 0.37 L Glucose Level 46 #*L 46 *L Calcium Level 7.8 L Magnesium Level 1.5 L Medications Medications Current Medications Ondansetron HCl (Zofran Inj) 4 mg Q6H PRN IV NAUSEA AND/OR VOMITING Last administered on 05/06/17 01:09; Admin Dose 4 MG; Start 04/23/17 at 22:30 Lorazepam (Ativan) 2 mg Q10MIN PRN IV seizure; Start 04/24/17 at 11:00 Methylprednisolone Sodium Succinate (Solu-Medrol) 20 mg DAILY IV Last administered on 05/08/17 08:48; Admin Dose 20 MG; Start 04/24/17 at 11:30 Folic Acid (Folic Acid) 1 mg DAILY PO Last administered on 05/08/17 08:48; Admin Dose 1 MG; Start 04/24/17 at 14:30 Multivitamins Therapeutic (Theragran) 1 tab DAILY PO Last administered on 08:46; Admin Dose 1 TAB; Start 04/24/17 at 14:30 Primidone (Mysoline) 250 mg TID PO Last administered on 05/08/17 13:58; Admin Dose 250 MG; Start 04/24/17 at 15:00 Sulfasalazine (Azulfidine) 500 mg QID PO Last administered on 05/08/17 13:58; Admin Dose 500 MG; Start 04/24/17 at 17:00 Atorvastatin Calcium (Lipitor) 20 mg DAILY@21 PO Last administered on 21:25; Admin Dose 20 MG; Start 04/24/17 at 21:00 Non-Formulary Medication 1 DOSE = 20 mcg/ 0.08ml DAILY SC Last administered on 05/08/17 08:49; Admin Dose 1 EA; Start 04/25/17 at 09:00 Levetiracetam (Keppra 500 Mg/ 100ml (Pmx)) 100 ml @ 400 mls/hr Q12 IVPB Last administered on 05/08/17 08:52; Admin Dose 400 MLS/HR; Start 04/30/17 at 21:00 Hydromorphone HCl (Dilaudid) 0.5 mg Q2H PRN IV PAIN LEVEL 1-5; Start 05/05/17 at 23:30 Pantoprazole (Protonix Tab) 40 mg DAILY@06 PO Last administered on 05/08/17 05 :14; Admin Dose 40 MG; Start 05/06/17 at 06:00 Hydromorphone HCl (Dilaudid) 1 mg Q2 PRN IV pain 6-10 Last administered on 05/08 11:24; Admin Dose 1 MG; Start 05/05/17 at 23:30 Ketorolac Tromethamine (Toradol) 30 mg Q6H PRN IV PAIN Last administered on 10:32; Admin Dose 30 MG; Start 05/06/17 at 01:00; Stop 05/09/17 at 00:59 Tramadol HCl 50 mg 50 mg Q6H PRN PO PAIN LEVEL 4-7; Start 05/06/17 at 01:00 Potassium Chloride/Dextrose/ Sod Cl (D5-1/2ns + KCl 10 Meq) 1,000 ml @ 100 mls/ hr Q10H IV Last administered on 05/08/17 10:27; Admin Dose 100 MLS/HR; Start 05/08/17 at 10:30 Frank Willson DO May 08, 2017 16:49
--- NOTE | 2017-05-08 19:11 | PN ---
Date/Time of Note Date/Time of Note DATE: 05/08/17 TIME: 19:07 Assessment/Plan VTE Prophylaxis VTE Prophylaxis Intervention: SCD's Lines/Catheters IV Catheter Type (from Nrs): Central Line Central line still needed: Yes Urinary Cath still in place: Yes Reason Cath still needed: other (indicate) (Urological surgery) Assessment/Plan Chief Complaint/Hosp Course Patient is postop day 3. she underwent partial cystectomy and excision of pelvic tumor. She is doing reasonably well ,continue the present treatment, pain management, IV fluids, keep the Stubbs catheter in place and continue the antibiotic Problems: Subjective 24 Hr Interval Summary Constitutional: no complaints Eyes: no complaints ENT: no complaints Respiratory: no complaints Cardiovascular: No chest pain Gastrointestinal: flatus, other (Incisional pain) Genitourinary: other (has an indwelling Stubbs catheter that is draining clear urine) Musculoskeletal: no complaints Skin: no complaints Neurologic: no complaints Endocrine: no complaints Exam/Review of Systems Vital Signs Vitals Vital Signs Date Time Temp Pulse Resp B/P Pulse Ox O2 Delivery O2 Flow Rate FiO2 05/08/17 14:25 98.6 76 18 111/56 96 05/07/17 16:30 Nasal Cannula 05/07/17 10:30 2.0 Intake and Output 05/07/17 05/07/17 05/08/17 15:00 23:00 07:00 Intake Total 1000 ml 800 ml 1000 ml Output Total 1055 ml 70 ml 1220 ml Balance -55 ml 730 ml -220 ml Exam Constitutional: alert Psych: no complaints Head: normocephalic Eyes: nl conjunctiva ENMT: nl external ears & nose Neck: non-tender, supple Respiratory: normal air movement Cardiovascular: No edema Gastrointestinal: surgical scars Genitourinary - Female: other (Stubbs catheter draining clear urine) Results Pathology report: Lab No: [id number] Date: 05/05/2017 SPECIMEN: A-Abdominal wall with urachus B-Abdominal wall skin C-Urachal cancer intra-abdominal CLINICAL: Recurrent urachal carcinoma GROSS EXAMINATION: A-Received in formalin is an elongated segment of contracted wyatt-pink, nonoriented skin measuring 15.5 cm long with a width of 0.5 to 1.6 cm and the attached subcutaneous tissue is irregular, wyatt-yellow, lobular and minimally indurated and measures 16.0 x 6.0 x 2.0 cm. The deep margin of the specimen (opposite the skin surface) reveals a glistening surface of peritoneum with visible blue monofilament sutures from a previous surgical procedure. Serially cross sectioned to reveal wyatt-yellow fibrofatty tissue with areas that are firm, gudino-white and fibrous and no distinct tumor is identified. Representatively sampled in two cassettes, A1 and A2. B-Received in formalin is an ellipse of wyatt-pink, nonoriented skin that measures 27.5 cm long, 6.0 cm wide and excised to a depth of 3.2 cm. Centered on the skin surface is a central defect that extends to the deep margin and measures 21.5 x 3.5 cm. Areas of the skin surface are slightly contracted with scar and fibrous tissue. Section reveals soft, lobular , wyatt-yellow fibrofatty tissue. At the deep margin, there is an area of fibrous tissue measuring 2.0 x 1.5 x 0.8 cm. Representatively sampled in two cassettes, B1 and B2. C-Received in formalin are six irregularly-shaped segments of wyatt-pink and yellow-wyatt tissue that measure from 1.5 x 1.3 x 0.6 cm up to 7.5 x 6.4 x 3.0 cm. The small fragments on cross section are grossly consistent with tumor and have a glistening pale yellow cut surface. The largest segment on cross section is predominantly fibrous tissue and within one area is a circular segment of gudino-white tissue 2.0 cm in diameter with a central soft area 0.8 cm in diameter. The small tumor fragments are totally submitted and the segments of fibrous tissue with possible central tumor. Representatively sampled in cassettes C5 and C6. MICROSCOPIC DIAGNOSIS: A-Abdominal wall with urachus: -- Fibrosis. -- Small histiocytic aggregates with hemosiderin deposition. -- No evidence of malignancy. Continued Next Page . . . B-Abdominal wall skin: -- Fibrosis. -- No evidence of malignancy. C-Urachal cancer, intra-abdominal: -- Mucinous adenocarcinoma, well differentiated. COMMENT: The morphology of the mucinous adenocarcinoma is similar to those seen the patient's previous bladder tumor ([facility] [id number]; 04/29/17). MP/[email or web address] Date of Service: 05/05/17; Date Received: 05/06/17 Dictated: 05/08/17; Transcribed: 05/08/17; Sent by Fax: 05/08/17 Tawanda Vazquez M.D. Pathologist Electronically Signed 05/08/2017 Result Diagram: 05/08/1720 05/08/17 0920 Results 24 hrs Laboratory Tests Test 05/08/17 07:28 05/08/17 09:20 White Blood Count 7.3 Red Blood Count 2.45 L Hemoglobin 7.2 L 8.1 L Hematocrit 23.4 L 26.5 L Mean Corpuscular Volume 95.5 Mean Corpuscular Hemoglobin 29.4 Mean Corpuscular Hemoglobin Concent 30.8 L Red Cell Distribution Width 15.0 H Platelet Count 229 Mean Platelet Volume 10.0 Neutrophils % 72.5 Lymphocytes % 16.3 Monocytes % 8.2 Eosinophils % 2.3 Basophils % 0.3 Nucleated Red Blood Cells % 0.0 Neutrophils # (Manual) 5 Lymphocytes # 1.2 Monocytes # 0.6 Eosinophils # 0.2 Basophils # 0.0 Nucleated Red Blood Cells # 0.0 Sodium Level 139 Potassium Level 3.4 L Chloride Level 107 Carbon Dioxide Level 19 L Anion Gap 16 # Blood Urea Nitrogen 2 L Creatinine 0.37 L Glucose Level 46 #*L 46 *L Calcium Level 7.8 L Magnesium Level 1.5 L Medications Medications Current Medications Ondansetron HCl (Zofran Inj) 4 mg Q6H PRN IV NAUSEA AND/OR VOMITING Last administered on 05/06/17 01:09; Admin Dose 4 MG; Start 04/23/17 at 22:30 Lorazepam (Ativan) 2 mg Q10MIN PRN IV seizure; Start 04/24/17 at 11:00 Methylprednisolone Sodium Succinate (Solu-Medrol) 20 mg DAILY IV Last administered on 05/08/17 08:48; Admin Dose 20 MG; Start 04/24/17 at 11:30 Folic Acid (Folic Acid) 1 mg DAILY PO Last administered on 05/08/17 08:48; Admin Dose 1 MG; Start 04/24/17 at 14:30 Multivitamins Therapeutic (Theragran) 1 tab DAILY PO Last administered on 08:46; Admin Dose 1 TAB; Start 04/24/17 at 14:30 Primidone (Mysoline) 250 mg TID PO Last administered on 05/08/17 13:58; Admin Dose 250 MG; Start 04/24/17 at 15:00 Sulfasalazine (Azulfidine) 500 mg QID PO Last administered on 05/08/17 18:18; Admin Dose 500 MG; Start 04/24/17 at 17:00 Atorvastatin Calcium (Lipitor) 20 mg DAILY@21 PO Last administered on 21:25; Admin Dose 20 MG; Start 04/24/17 at 21:00 Non-Formulary Medication 1 DOSE = 20 mcg/ 0.08ml DAILY SC Last administered on 05/08/17 08:49; Admin Dose 1 EA; Start 04/25/17 at 09:00 Levetiracetam (Keppra 500 Mg/ 100ml (Pmx)) 100 ml @ 400 mls/hr Q12 IVPB Last administered on 05/08/17 08:52; Admin Dose 400 MLS/HR; Start 04/30/17 at 21:00 Hydromorphone HCl (Dilaudid) 0.5 mg Q2H PRN IV PAIN LEVEL 1-5; Start 05/05/17 at 23:30 Pantoprazole (Protonix Tab) 40 mg DAILY@06 PO Last administered on 05/08/17 05 :14; Admin Dose 40 MG; Start 05/06/17 at 06:00 Hydromorphone HCl (Dilaudid) 1 mg Q2 PRN IV pain 6-10 Last administered on 05/08 11:24; Admin Dose 1 MG; Start 05/05/17 at 23:30 Ketorolac Tromethamine (Toradol) 30 mg Q6H PRN IV PAIN Last administered on 10:32; Admin Dose 30 MG; Start 05/06/17 at 01:00; Stop 05/09/17 at 00:59 Tramadol HCl 50 mg 50 mg Q6H PRN PO PAIN LEVEL 4-7; Start 05/06/17 at 01:00 Potassium Chloride/Dextrose/ Sod Cl (D5-1/2ns + KCl 10 Meq) 1,000 ml @ 100 mls/ hr Q10H IV Last administered on 05/08/17 10:27; Admin Dose 100 MLS/HR; Start 05/08/17 at 10:30 TRESSA SIMMONS MD May 08, 2017 19:11
[2017-05-08 20:52] VITALS: BP 127/63; RESP 18
[2017-05-08] MEDS: ATORVASTATIN 20 MG TAB PO SCH (21:13)
[2017-05-09] MEDS: D5W-0.45 NACL + KCL 10 MEQ 1,000 ML IV SCH ×5 (00:37→23:22)
[2017-05-09 02:48] VITALS: BP 117/56; RESP 16
[2017-05-09] MEDS: HYDROmorphONE 1 MG/ML SYG IV PRN ×4 (02:58→20:34)
[2017-05-09] MEDS: PANTOPRAZOLE (EC) 40 MG TAB PO SCH (05:12)
[2017-05-09 06:51] LABS: BASOPHILS % 0.2 % (0.0-2.0); EOSINOPHILS # 0.2 10^3/ul (0.0-0.5); EOSINOPHILS % 4.1 % (0.0-7.0); HEMATOCRIT 24.3 % (37.0-47.0); HEMOGLOBIN 7.8 g/dl (12.0-16.0); LYMPHOCYTES # 1.1 10^3/ul (0.8-2.9); LYMPHOCYTES % 20.3 % (15.0-51.0); MEAN CORPUSCULAR HEMOGLOBIN 30.1 pg (29.0-33.0); MEAN CORPUSCULAR HGB CONC 32.1 g/dl (32.0-37.0); MEAN CORPUSCULAR VOLUME 93.8 fl (82.0-101.0); MONOCYTE # 0.6 10^3/ul (0.3-0.9); PLATELET COUNT 271 10^3/UL (140-415); RED BLOOD COUNT 2.59 10^6/ul (4.20-5.40); RED CELL DISTRIBUTION WIDTH 14.8 % (11.5-14.5); WHITE BLOOD COUNT 5.4 10^3/ul (4.8-10.8)
[2017-05-09 07:20] LABS: MAGNESIUM 1.6 mg/dl (1.7-2.5); PHOSPHORUS 2.4 mg/dl (2.5-4.9)
[2017-05-09 07:21] LABS: ANION GAP 14 (8-16); CALCIUM 8.5 mg/dl (8.4-10.2); CARBON DIOXIDE 26 mmol/L (21-31); CHLORIDE 105 mmol/L (97-110); CREATININE 0.32 mg/dl (0.44-1.00); GLUCOSE 102 mg/dl (70-220); POTASSIUM 3.4 mmol/L (3.5-5.1); SODIUM 142 mmol/L (135-144)
[2017-05-09 07:28] LABS: BLOOD UREA NITROGEN < 2 mg/dl (7-20)
--- NOTE | 2017-05-09 07:30 | PN ---
Date/Time of Note Date/Time of Note DATE: 05/09/17 TIME: 07:28 Assessment/Plan VTE Prophylaxis VTE Prophylaxis Intervention: SCD's Lines/Catheters IV Catheter Type (from Nrs): Central Line Central line still needed: No Urinary Cath still in place: Yes Reason Cath still needed: urinary retention Assessment/Plan Assessment/Plan Abdominal mass status post surgery 05/05/2017 Postoperative hypotension and tachycardia Preserved ejection fraction Rheumatoid arthritis Acute blood loss anemia status post blood transfusion -Blood pressure trend improved. As mentioned, hypotension likely multifactorial and patient currently remains asymptomatic with improved blood pressure. No need for any IV pressors at the current time. Would continue to hold any antihypertensives. Maintain potassium above 4.0 and magnesium of 2.0. Subjective 24 Hr Interval Summary Free Text/Dictation The patinet with no change Exam/Review of Systems Vital Signs Vitals Vital Signs Date Time Temp Pulse Resp B/P Pulse Ox O2 Delivery O2 Flow Rate FiO2 05/09/17 02:48 97.9 85 16 117/56 98 05/07/17 16:30 Nasal Cannula 05/07/17 10:30 2.0 Intake and Output 05/08/17 05/08/17 05/09/17 15:00 23:00 07:00 Intake Total 700 ml 815 ml 500 ml Output Total 10 ml 2610 ml 2100 ml Balance 690 ml -1795 ml -1600 ml Results Result Diagram: 05/09/17 0530 05/08/17 0920 Results 24 hrs Laboratory Tests Test 05/08/17 09:20 05/09/17 05:30 Hemoglobin 8.1 L 7.8 L Hematocrit 26.5 L 24.3 L Glucose Level 46 *L Magnesium Level 1.5 L White Blood Count 5.4 # Red Blood Count 2.59 L Mean Corpuscular Volume 93.8 Mean Corpuscular Hemoglobin 30.1 Mean Corpuscular Hemoglobin Concent 32.1 Red Cell Distribution Width 14.8 H Platelet Count 271 Mean Platelet Volume 10.0 Neutrophils % 64.0 Lymphocytes % 20.3 Monocytes % 11.0 Eosinophils % 4.1 Basophils % 0.2 Nucleated Red Blood Cells % 0.0 Neutrophils # (Manual) 3 Lymphocytes # 1.1 Monocytes # 0.6 Eosinophils # 0.2 Basophils # 0.0 Nucleated Red Blood Cells # 0.0 Medications Medications Current Medications Ondansetron HCl (Zofran Inj) 4 mg Q6H PRN IV NAUSEA AND/OR VOMITING Last administered on 05/06/17 01:09; Admin Dose 4 MG; Start 04/23/17 at 22:30 Lorazepam (Ativan) 2 mg Q10MIN PRN IV seizure; Start 04/24/17 at 11:00 Methylprednisolone Sodium Succinate (Solu-Medrol) 20 mg DAILY IV Last administered on 05/08/17 08:48; Admin Dose 20 MG; Start 04/24/17 at 11:30 Folic Acid (Folic Acid) 1 mg DAILY PO Last administered on 05/08/17 08:48; Admin Dose 1 MG; Start 04/24/17 at 14:30 Multivitamins Therapeutic (Theragran) 1 tab DAILY PO Last administered on 08:46; Admin Dose 1 TAB; Start 04/24/17 at 14:30 Primidone (Mysoline) 250 mg TID PO Last administered on 05/08/17 21:13; Admin Dose 250 MG; Start 04/24/17 at 15:00 Sulfasalazine (Azulfidine) 500 mg QID PO Last administered on 05/08/17 21:13; Admin Dose 500 MG; Start 04/24/17 at 17:00 Atorvastatin Calcium (Lipitor) 20 mg DAILY@21 PO Last administered on 21:13; Admin Dose 20 MG; Start 04/24/17 at 21:00 Non-Formulary Medication 1 DOSE = 20 mcg/ 0.08ml DAILY SC Last administered on 05/08/17 08:49; Admin Dose 1 EA; Start 04/25/17 at 09:00 Levetiracetam (Keppra 500 Mg/ 100ml (Pmx)) 100 ml @ 400 mls/hr Q12 IVPB Last administered on 05/08/17 21:23; Admin Dose 400 MLS/HR; Start 04/30/17 at 21:00 Hydromorphone HCl (Dilaudid) 0.5 mg Q2H PRN IV PAIN LEVEL 1-5; Start 05/05/17 at 23:30 Pantoprazole (Protonix Tab) 40 mg DAILY@06 PO Last administered on 05/09/17 05 :12; Admin Dose 40 MG; Start 05/06/17 at 06:00 Hydromorphone HCl (Dilaudid) 1 mg Q2 PRN IV pain 6-10 Last administered on 05/09 02:58; Admin Dose 1 MG; Start 05/05/17 at 23:30 Tramadol HCl 50 mg 50 mg Q6H PRN PO PAIN LEVEL 4-7; Start 05/06/17 at 01:00 Potassium Chloride/Dextrose/ Sod Cl (D5-1/2ns + KCl 10 Meq) 1,000 ml @ 100 mls/ hr Q10H IV Last administered on 05/09/17 00:37; Admin Dose 100 MLS/HR; Start 05/08/17 at 10:30 ARIN OGDEN MD May 09, 2017 07:30
[2017-05-09] MEDS: SULFASALAZINE 500 MG TAB PO SCH ×4 (08:32→20:34)
[2017-05-09] MEDS: LEVETIRACETAM 500 MG (PMX) 100 ML IVPB SCH ×2 (08:32→20:32)
[2017-05-09] MEDS: METHYLPREDNISOLONE 40 MG INJ IV SCH (08:32)
[2017-05-09] MEDS: PRIMIDONE 250 MG TAB PO SCH ×3 (08:32→20:34)
[2017-05-09 08:33] VITALS: BP 116/56; RESP 22
[2017-05-09] MEDS: MULTIVITAMINS THERAPEUTIC TAB PO SCH (08:33)
[2017-05-09] MEDS: FOLIC ACID 1 MG TAB PO SCH (08:33)
[2017-05-09] MEDS: TERIPARATIDE 600 MCG/2.4 ML SC SCH (08:45)
--- NOTE | 2017-05-09 11:33 | PN ---
Date/Time of Note Date/Time of Note DATE: 05/09/17 TIME: 11:29 Assessment/Plan VTE Prophylaxis VTE Prophylaxis Intervention: SCD's Lines/Catheters IV Catheter Type (from Nrs): Central Line Central line still needed: Yes Urinary Cath still in place: Yes Reason Cath still needed: other (indicate) (recent bladder surgery) Assessment/Plan Assessment/Plan Discussed with pt via family to translate. Her main concerns are when she can eat and when can she walk. They will talk to surgeon about this. The other concern is that she will likely need help at home when she is eventually discharged. I would involve Social Service in this issue when her discharge date becomes more clear. No chemotherapy or RT is planned. Subjective 24 Hr Interval Summary Free Text/Dictation Pt is in bed and appears comfortable. Exam/Review of Systems Vital Signs Vitals Vital Signs Date Time Temp Pulse Resp B/P Pulse Ox O2 Delivery O2 Flow Rate FiO2 05/09/17 08:33 97.9 95 22 116/56 96 05/07/17 16:30 Nasal Cannula 05/07/17 10:30 2.0 Intake and Output 05/08/17 05/08/17 05/09/17 15:00 23:00 07:00 Intake Total 700 ml 815 ml 500 ml Output Total 10 ml 2610 ml 2100 ml Balance 690 ml -1795 ml -1600 ml Exam Constitutional: alert, oriented Head: normocephalic Eyes: other (pallor) Neck: supple Respiratory: clear to auscultation Cardiovascular: regular rate and rhythm Gastrointestinal: other (s/p surgery) Results Result Diagram: 05/09/17 0530 05/09/17 0530 Results 24 hrs Laboratory Tests Test 05/09/17 05:20 05/09/17 05:30 Phosphorus Level 2.4 L Magnesium Level 1.6 L White Blood Count 5.4 # Red Blood Count 2.59 L Hemoglobin 7.8 L Hematocrit 24.3 L Mean Corpuscular Volume 93.8 Mean Corpuscular Hemoglobin 30.1 Mean Corpuscular Hemoglobin Concent 32.1 Red Cell Distribution Width 14.8 H Platelet Count 271 Mean Platelet Volume 10.0 Neutrophils % 64.0 Lymphocytes % 20.3 Monocytes % 11.0 Eosinophils % 4.1 Basophils % 0.2 Nucleated Red Blood Cells % 0.0 Neutrophils # (Manual) 3 Lymphocytes # 1.1 Monocytes # 0.6 Eosinophils # 0.2 Basophils # 0.0 Nucleated Red Blood Cells # 0.0 Sodium Level 142 Potassium Level 3.4 L Chloride Level 105 Carbon Dioxide Level 26 Anion Gap 14 Blood Urea Nitrogen < 2 L Creatinine 0.32 L Glucose Level 102 # Calcium Level 8.5 Medications Medications Current Medications Ondansetron HCl (Zofran Inj) 4 mg Q6H PRN IV NAUSEA AND/OR VOMITING Last administered on 05/06/17 01:09; Admin Dose 4 MG; Start 04/23/17 at 22:30 Lorazepam (Ativan) 2 mg Q10MIN PRN IV seizure; Start 04/24/17 at 11:00 Methylprednisolone Sodium Succinate (Solu-Medrol) 20 mg DAILY IV Last administered on 05/09/17 08:32; Admin Dose 20 MG; Start 04/24/17 at 11:30 Folic Acid (Folic Acid) 1 mg DAILY PO Last administered on 05/09/17 08:33; Admin Dose 1 MG; Start 04/24/17 at 14:30 Multivitamins Therapeutic (Theragran) 1 tab DAILY PO Last administered on 08:33; Admin Dose 1 TAB; Start 04/24/17 at 14:30 Primidone (Mysoline) 250 mg TID PO Last administered on 05/09/17 08:32; Admin Dose 250 MG; Start 04/24/17 at 15:00 Sulfasalazine (Azulfidine) 500 mg QID PO Last administered on 05/09/17 08:32; Admin Dose 500 MG; Start 04/24/17 at 17:00 Atorvastatin Calcium (Lipitor) 20 mg DAILY@21 PO Last administered on 21:13; Admin Dose 20 MG; Start 04/24/17 at 21:00 Non-Formulary Medication 1 DOSE = 20 mcg/ 0.08ml DAILY SC Last administered on 05/09/17 08:45; Admin Dose 1 EA; Start 04/25/17 at 09:00 Levetiracetam (Keppra 500 Mg/ 100ml (Pmx)) 100 ml @ 400 mls/hr Q12 IVPB Last administered on 05/09/17 08:32; Admin Dose 400 MLS/HR; Start 04/30/17 at 21:00 Hydromorphone HCl (Dilaudid) 0.5 mg Q2H PRN IV PAIN LEVEL 1-5; Start 05/05/17 at 23:30 Pantoprazole (Protonix Tab) 40 mg DAILY@06 PO Last administered on 05/09/17 05 :12; Admin Dose 40 MG; Start 05/06/17 at 06:00 Hydromorphone HCl (Dilaudid) 1 mg Q2 PRN IV pain 6-10 Last administered on 05/09 09:18; Admin Dose 1 MG; Start 05/05/17 at 23:30 Tramadol HCl 50 mg 50 mg Q6H PRN PO PAIN LEVEL 4-7; Start 05/06/17 at 01:00 Potassium Chloride/Dextrose/ Sod Cl (D5-1/2ns + KCl 10 Meq) 1,000 ml @ 100 mls/ hr Q10H IV Last administered on 05/09/17 00:37; Admin Dose 100 MLS/HR; Start 05/08/17 at 10:30 SHANA OVALLE MD May 09, 2017 11:33
--- NOTE | 2017-05-09 13:30 | PN ---
Date/Time of Note Date/Time of Note DATE: 05/09/17 TIME: 13:26 Assessment/Plan VTE Prophylaxis VTE Prophylaxis Intervention: ambulation, SCD's Lines/Catheters IV Catheter Type (from Nrsg): Central Line Central line still needed: Yes Urinary Cath still in place: Yes Reason Cath still needed: other (indicate) (monitor I&O) Assessment/Plan Chief Complaint/Hosp Course Assessment and plan 1. 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 continue antibiotics. status post CT-guided biopsy of lesion in area. She did also have transurethral resection of the bladder tumors on April 29, 2017. 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 Patient status post surgical intervention including cystoscopy and insertion of bilateral ureteral catheters and partial cystectomy, exploratory laparotomy with extensive lysis of adhesions, repair of colotomy, excision of pelvic cystic lesion (May 05, 2017). continue with analgesics. Advance diet per surgeon 2. UTI. Continue antibiotics per ID recommendations. 3. Seizure disorder. Continue on Keppra. Stable at present. 4. History of rheumatoid arthritis. Continue with analgesics as needed 5. Sjogren's syndrome. Stable at present. Will monitor 6. History of brain tumor. Patient is status post resection. No active issue at this time. Will monitor. 7. Hypotension status post surgical intervention. improved. Disposition and plan: continue with analgesics and PT. Advance diet per surgeon. Awaiting pathology. d/c when medically stable and cleared by consultants Discussed plan of care with Dr. Guardado Problems: Subjective 24 Hr Interval Summary Free Text/Dictation still with some abd pain, but better today. Exam/Review of Systems Vital Signs Vitals Vital Signs Date Time Temp Pulse Resp B/P Pulse Ox O2 Delivery O2 Flow Rate FiO2 05/09/17 08:33 97.9 95 22 116/56 96 05/07/17 16:30 Nasal Cannula 05/07/17 10:30 2.0 Intake and Output 05/08/17 05/08/17 05/09/17 15:00 23:00 07:00 Intake Total 700 ml 815 ml 500 ml Output Total 10 ml 2610 ml 2100 ml Balance 690 ml -1795 ml -1600 ml Exam Constitutional: alert, oriented, no s/s of distress Head: normocephalic Respiratory: normal air movement Cardiovascular: other (Regular rate to tachycardic) Gastrointestinal: soft, tender 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: MECHANICAL TEST ENGINEER II-XII intact, nl mental status, nl speech Skin: other (Surgical site with dressing and abdominal binder in place) cdi Results Result Diagram: 05/09/17 0530 05/09/17 0530 Results 24 hrs Laboratory Tests Test 05/09/17 05:20 05/09/17 05:30 Phosphorus Level 2.4 L Magnesium Level 1.6 L White Blood Count 5.4 # Red Blood Count 2.59 L Hemoglobin 7.8 L Hematocrit 24.3 L Mean Corpuscular Volume 93.8 Mean Corpuscular Hemoglobin 30.1 Mean Corpuscular Hemoglobin Concent 32.1 Red Cell Distribution Width 14.8 H Platelet Count 271 Mean Platelet Volume 10.0 Neutrophils % 64.0 Lymphocytes % 20.3 Monocytes % 11.0 Eosinophils % 4.1 Basophils % 0.2 Nucleated Red Blood Cells % 0.0 Neutrophils # (Manual) 3 Lymphocytes # 1.1 Monocytes # 0.6 Eosinophils # 0.2 Basophils # 0.0 Nucleated Red Blood Cells # 0.0 Sodium Level 142 Potassium Level 3.4 L Chloride Level 105 Carbon Dioxide Level 26 Anion Gap 14 Blood Urea Nitrogen < 2 L Creatinine 0.32 L Glucose Level 102 # Calcium Level 8.5 Medications Medications Current Medications Ondansetron HCl (Zofran Inj) 4 mg Q6H PRN IV NAUSEA AND/OR VOMITING Last administered on 05/06/17 01:09; Admin Dose 4 MG; Start 04/23/17 at 22:30 Lorazepam (Ativan) 2 mg Q10MIN PRN IV seizure; Start 04/24/17 at 11:00 Methylprednisolone Sodium Succinate (Solu-Medrol) 20 mg DAILY IV Last administered on 05/09/17 08:32; Admin Dose 20 MG; Start 04/24/17 at 11:30 Folic Acid (Folic Acid) 1 mg DAILY PO Last administered on 05/09/17 08:33; Admin Dose 1 MG; Start 04/24/17 at 14:30 Multivitamins Therapeutic (Theragran) 1 tab DAILY PO Last administered on 08:33; Admin Dose 1 TAB; Start 04/24/17 at 14:30 Primidone (Mysoline) 250 mg TID PO Last administered on 05/09/17 08:32; Admin Dose 250 MG; Start 04/24/17 at 15:00 Sulfasalazine (Azulfidine) 500 mg QID PO Last administered on 05/09/17 08:32; Admin Dose 500 MG; Start 04/24/17 at 17:00 Atorvastatin Calcium (Lipitor) 20 mg DAILY@21 PO Last administered on 21:13; Admin Dose 20 MG; Start 04/24/17 at 21:00 Non-Formulary Medication 1 DOSE = 20 mcg/ 0.08ml DAILY SC Last administered on 05/09/17 08:45; Admin Dose 1 EA; Start 04/25/17 at 09:00 Levetiracetam (Keppra 500 Mg/ 100ml (Pmx)) 100 ml @ 400 mls/hr Q12 IVPB Last administered on 05/09/17 08:32; Admin Dose 400 MLS/HR; Start 04/30/17 at 21:00 Hydromorphone HCl (Dilaudid) 0.5 mg Q2H PRN IV PAIN LEVEL 1-5; Start 05/05/17 at 23:30 Pantoprazole (Protonix Tab) 40 mg DAILY@06 PO Last administered on 05/09/17 05 :12; Admin Dose 40 MG; Start 05/06/17 at 06:00 Hydromorphone HCl (Dilaudid) 1 mg Q2 PRN IV pain 6-10 Last administered on 05/09 09:18; Admin Dose 1 MG; Start 05/05/17 at 23:30 Tramadol HCl 50 mg 50 mg Q6H PRN PO PAIN LEVEL 4-7; Start 05/06/17 at 01:00 Potassium Chloride/Dextrose/ Sod Cl (D5-1/2ns + KCl 10 Meq) 1,000 ml @ 100 mls/ hr Q10H IV Last administered on 05/09/17 12:25; Admin Dose 100 MLS/HR; Start 05/08/17 at 10:30 WALTER PINA May 09, 2017 13:30
[2017-05-09 15:23] VITALS: BP 99/57; RESP 22
[2017-05-09 19:48] VITALS: BP 105/67; RESP 18
[2017-05-09] MEDS: ATORVASTATIN 20 MG TAB PO SCH (20:34)
[2017-05-10 01:46] VITALS: BP 107/55; RESP 16
[2017-05-10] MEDS: D5W-0.45 NACL + KCL 10 MEQ 1,000 ML IV SCH ×2 (02:30→09:21)
[2017-05-10] MEDS: PANTOPRAZOLE (EC) 40 MG TAB PO SCH (05:43)
[2017-05-10] MEDS: HYDROmorphONE 1 MG/ML SYG IV PRN ×4 (05:48→21:03)
[2017-05-10 08:03] VITALS: BP 108/59; RESP 18
[2017-05-10 08:04] LABS: BASOPHILS % 0.2 % (0.0-2.0); EOSINOPHILS # 0.2 10^3/ul (0.0-0.5); EOSINOPHILS % 4.2 % (0.0-7.0); HEMATOCRIT 25.8 % (37.0-47.0); HEMOGLOBIN 8.4 g/dl (12.0-16.0); LYMPHOCYTES # 0.9 10^3/ul (0.8-2.9); LYMPHOCYTES % 21.5 % (15.0-51.0); MEAN CORPUSCULAR HGB CONC 32.6 g/dl (32.0-37.0); MEAN CORPUSCULAR VOLUME 92.1 fl (82.0-101.0); MEAN PLATELET VOLUME 9.5 fl (7.4-10.4); MONOCYTE # 0.6 10^3/ul (0.3-0.9); MONOCYTES % 15.1 % (0.0-11.0); NEUTROPHILS % 58.8 % (39.0-77.0); PLATELET COUNT 277 10^3/UL (140-415); WHITE BLOOD COUNT 4.1 10^3/ul (4.8-10.8)
[2017-05-10 08:21] LABS: ANION GAP 10 (8-16); CALCIUM 8.5 mg/dl (8.4-10.2); CARBON DIOXIDE 27 mmol/L (21-31); CHLORIDE 105 mmol/L (97-110); CREATININE 0.35 mg/dl (0.44-1.00); GLUCOSE 132 mg/dl (70-220); POTASSIUM 3.5 mmol/L (3.5-5.1); SODIUM 138 mmol/L (135-144)
[2017-05-10 08:22] LABS: BLOOD UREA NITROGEN < 2 mg/dl (7-20)
[2017-05-10] MEDS: METHYLPREDNISOLONE 40 MG INJ IV SCH (08:52)
[2017-05-10] MEDS: PRIMIDONE 250 MG TAB PO SCH ×3 (08:53→21:03)
[2017-05-10] MEDS: SULFASALAZINE 500 MG TAB PO SCH ×4 (08:53→21:03)
[2017-05-10] MEDS: MULTIVITAMINS THERAPEUTIC TAB PO SCH (08:53)
[2017-05-10] MEDS: FOLIC ACID 1 MG TAB PO SCH (08:53)
[2017-05-10] MEDS: LEVETIRACETAM 500 MG (PMX) 100 ML IVPB SCH ×2 (08:53→22:20)
[2017-05-10] MEDS: TERIPARATIDE 600 MCG/2.4 ML SC SCH (09:04)
--- NOTE | 2017-05-10 10:55 | PN ---
Date/Time of Note Date/Time of Note DATE: 05/10/17 TIME: 10:51 Assessment/Plan VTE Prophylaxis VTE Prophylaxis Intervention: other (per primary MD) Lines/Catheters IV Catheter Type (from Nrsg): Central Line Central line still needed: Yes Urinary Cath still in place: Yes Reason Cath still needed: other (indicate) (per urology) Assessment/Plan Assessment/Plan Pt is recovering from surgery. She is anxious to eat and to go home. She will need to be seen by her surgeon concerning this. She is also asking about help with home care once she is discharged. Perhaps Director Of Health Care Marketing can see her tomorrow. Subjective 24 Hr Interval Summary Free Text/Dictation Pt is lying quietly in bed. She is anxious to eat. Exam/Review of Systems Vital Signs Vitals Vital Signs Date Time Temp Pulse Resp B/P Pulse Ox O2 Delivery O2 Flow Rate FiO2 05/10/17 08:03 98.5 95 18 108/59 98 05/07/17 16:30 Nasal Cannula 05/07/17 10:30 2.0 Intake and Output 05/09/17 05/09/17 05/10/17 15:00 23:00 07:00 Intake Total 600 ml 100 ml 2060 ml Output Total 0 ml 2010 ml 1600 ml Balance 600 ml -1910 ml 460 ml Exam Constitutional: alert, oriented Head: normocephalic Eyes: nl conjunctiva Neck: supple Respiratory: clear to auscultation Cardiovascular: regular rate and rhythm Gastrointestinal: other (s/p surgery) Results Result Diagram: 05/10/17 0730 05/10/17 0730 Results 24 hrs Laboratory Tests Test 05/10/17 07:30 White Blood Count 4.1 #L Red Blood Count 2.80 L Hemoglobin 8.4 L Hematocrit 25.8 L Mean Corpuscular Volume 92.1 Mean Corpuscular Hemoglobin 30.0 Mean Corpuscular Hemoglobin Concent 32.6 Red Cell Distribution Width 15.0 H Platelet Count 277 Mean Platelet Volume 9.5 Neutrophils % 58.8 Lymphocytes % 21.5 Monocytes % 15.1 H Eosinophils % 4.2 Basophils % 0.2 Nucleated Red Blood Cells % 0.0 Neutrophils # (Manual) 2 Lymphocytes # 0.9 Monocytes # 0.6 Eosinophils # 0.2 Basophils # 0.0 Nucleated Red Blood Cells # 0.0 Sodium Level 138 Potassium Level 3.5 Chloride Level 105 Carbon Dioxide Level 27 Anion Gap 10 Blood Urea Nitrogen < 2 L Creatinine 0.35 L Glucose Level 132 Calcium Level 8.5 Medications Medications Current Medications Ondansetron HCl (Zofran Inj) 4 mg Q6H PRN IV NAUSEA AND/OR VOMITING Last administered on 05/06/17 01:09; Admin Dose 4 MG; Start 04/23/17 at 22:30 Lorazepam (Ativan) 2 mg Q10MIN PRN IV seizure; Start 04/24/17 at 11:00 Methylprednisolone Sodium Succinate (Solu-Medrol) 20 mg DAILY IV Last administered on 05/10/17 08:52; Admin Dose 20 MG; Start 04/24/17 at 11:30 Folic Acid (Folic Acid) 1 mg DAILY PO Last administered on 05/10/17 08:53; Admin Dose 1 MG; Start 04/24/17 at 14:30 Multivitamins Therapeutic (Theragran) 1 tab DAILY PO Last administered on 08:53; Admin Dose 1 TAB; Start 04/24/17 at 14:30 Primidone (Mysoline) 250 mg TID PO Last administered on 05/10/17 08:53; Admin Dose 250 MG; Start 04/24/17 at 15:00 Sulfasalazine (Azulfidine) 500 mg QID PO Last administered on 05/10/17 08:53; Admin Dose 500 MG; Start 04/24/17 at 17:00 Atorvastatin Calcium (Lipitor) 20 mg DAILY@21 PO Last administered on 20:34; Admin Dose 20 MG; Start 04/24/17 at 21:00 Non-Formulary Medication 1 DOSE = 20 mcg/ 0.08ml DAILY SC Last administered on 05/10/17 09:04; Admin Dose 1 EA; Start 04/25/17 at 09:00 Levetiracetam (Keppra 500 Mg/ 100ml (Pmx)) 100 ml @ 400 mls/hr Q12 IVPB Last administered on 05/10/17 08:53; Admin Dose 400 MLS/HR; Start 04/30/17 at 21:00 Hydromorphone HCl (Dilaudid) 0.5 mg Q2H PRN IV PAIN LEVEL 1-5; Start 05/05/17 at 23:30 Pantoprazole (Protonix Tab) 40 mg DAILY@06 PO Last administered on 05/10/17 05 :43; Admin Dose 40 MG; Start 05/06/17 at 06:00 Hydromorphone HCl (Dilaudid) 1 mg Q2 PRN IV pain 6-10 Last administered on 05/10 09:33; Admin Dose 1 MG; Start 05/05/17 at 23:30 Tramadol HCl 50 mg 50 mg Q6H PRN PO PAIN LEVEL 4-7; Start 05/06/17 at 01:00 Potassium Chloride/Dextrose/ Sod Cl (D5-1/2ns + KCl 10 Meq) 1,000 ml @ 100 mls/ hr Q10H IV Last administered on 05/10/17 09:21; Admin Dose 100 MLS/HR; Start 05/08/17 at 10:30 SHANA OVALLE MD May 10, 2017 10:55
[2017-05-10] MEDS: TPN 1,000 ML IV SCH (15:48)
[2017-05-10] MEDS: FAT EMULSION 20% 250 ML IV SCH (15:48)
--- NOTE | 2017-05-10 17:00 | PN ---
Date/Time of Note Date/Time of Note DATE: 05/09/17 TIME: 16:52 Assessment/Plan Lines/Catheters IV Catheter Type (from Nrs): Central Line Partida in Place (from Nrs): Yes Assessment/Plan Chief Complaint/Hosp Course 1. Recurrent mucinous urachal adenocarcinoma. s/p Exploratory laparotomy with extensive lysis of adhesions, repair of colotomy, Implantation of biologic over the colon repair and bladder repair, Excision of pelvic cystic lesion. 11 x 9 cm, Partial cystectomy & bilateral ureteral stent placement 05/05. Min bowel function. -onc f/u and tx -danika growing: antifungals per ID -pain management -will keep patient npo for now > tpn -oob/ambulate c PT -IS 2. Hypotension w tachycardia in OR and immediately after surgery: r/o cardiac event: cta negative, trop neg, echo: preserved EF, cards recs noted; All improved -supportive -defer to Cardiology for further evaluation 3. Normocytic anemia: no acute bleed noted -monitor -transfuse as needed 4. Rheumatoid arthritis with significant immobility -PT -medical management 5. UTI: multi-organism pathogens -abx per sensitivity Thank you, Late entry 05/09 Problems: Subjective 24 Hr Interval Summary Feels well. Min pain in abdomen. UCHE output serosanguineous. No fevers, chills , cp, sob, congested cough, sz, rash. Min flatus. No bm. No centeno, visual or neuro changes. No dysuria. Partida intact. Exam/Review of Systems Vital Signs Vitals Vital Signs Date Time Temp Pulse Resp B/P Pulse Ox O2 Delivery O2 Flow Rate FiO2 05/10/17 08:03 98.5 95 18 108/59 98 05/07/17 16:30 Nasal Cannula 05/07/17 10:30 2.0 Intake and Output 05/09/17 05/09/17 05/10/17 15:00 23:00 07:00 Intake Total 600 ml 100 ml 2060 ml Output Total 0 ml 2010 ml 1600 ml Balance 600 ml -1910 ml 460 ml Exam Free Text/Dictation Constitutional: alert, oriented, pleasant, Psych: anxiety, no complaints Head: atraumatic, normocephalic Eyes: nl lids, nl sclera ENMT: mucosa pink and moist, nl nasal mucosa & septum Neck: non-tender, supple Respiratory: clear to auscultation, normal air movement Cardiovascular: regular rate and rhythm, No edema Gastrointestinal: soft, min tender, surgical incision with maurizio, no periwound erythema/drainage : no dysuria, partida yellow urine Musculoskeletal: nl extremities to inspection Extremities: normal pulses, No edema 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: nl mental status, nl speech, nl strength Lymph: No nl lymph nodes Results Result Diagram: 05/10/17 0730 05/10/17 0730 DIEGO YUEN MD May 10, 2017 17:00
--- NOTE | 2017-05-10 17:03 | PN ---
Date/Time of Note Date/Time of Note DATE: 05/10/17 TIME: 17:01 Assessment/Plan Lines/Catheters IV Catheter Type (from Nrs): Central Line Partida in Place (from Nrs): Yes Assessment/Plan Chief Complaint/Hosp Course 1. Recurrent mucinous urachal adenocarcinoma. s/p Exploratory laparotomy with extensive lysis of adhesions, repair of colotomy, Implantation of biologic over the colon repair and bladder repair, Excision of pelvic cystic lesion. 11 x 9 cm, Partial cystectomy & bilateral ureteral stent placement 05/05. Min bowel function. -onc f/u and tx -danika growing: antifungals per ID -pain management -will keep patient npo for now > tpn -oob/ambulate c PT -IS 2. Hypotension w tachycardia in OR and immediately after surgery: r/o cardiac event: cta negative, trop neg, echo: preserved EF, cards recs noted; All improved -supportive -defer to Cardiology for further evaluation 3. Normocytic anemia: no acute bleed noted -monitor -transfuse as needed 4. Rheumatoid arthritis with significant immobility -PT -medical management -Lovenox 5. UTI: multi-organism pathogens -abx per sensitivity Thank you, Problems: Subjective 24 Hr Interval Summary Flatus 2 days ago but no further. No bm. Feels well. Min pain in abdomen. UCHE output serosanguineous. No fevers, chills, cp, sob, congested cough, sz, rash. No centeno, visual or neuro changes. No dysuria. Partida intact. Exam/Review of Systems Vital Signs Vitals Vital Signs Date Time Temp Pulse Resp B/P Pulse Ox O2 Delivery O2 Flow Rate FiO2 05/10/17 08:03 98.5 95 18 108/59 98 05/07/17 16:30 Nasal Cannula 05/07/17 10:30 2.0 Intake and Output 05/09/17 05/09/17 05/10/17 15:00 23:00 07:00 Intake Total 600 ml 100 ml 2060 ml Output Total 0 ml 2010 ml 1600 ml Balance 600 ml -1910 ml 460 ml Exam Free Text/Dictation Constitutional: alert, oriented, pleasant, Psych: anxiety, no complaints Head: atraumatic, normocephalic Eyes: nl lids, nl sclera ENMT: mucosa pink and moist, nl nasal mucosa & septum Neck: non-tender, supple Respiratory: clear to auscultation, normal air movement Cardiovascular: regular rate and rhythm, No edema Gastrointestinal: soft, min tender, surgical incision with maurizio, no periwound erythema/drainage : no dysuria, partida yellow urine Musculoskeletal: nl extremities to inspection Extremities: normal pulses, No edema 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: nl mental status, nl speech, nl strength Lymph: No nl lymph nodes Results Result Diagram: 05/10/17 0730 05/10/17 0730 DIEGO YUEN MD May 10, 2017 17:03
[2017-05-10] MEDS: ENOXAPARIN 40 MG/0.4 ML SYG SC SCH (18:01)
[2017-05-10 19:09] LABS: ALANINE AMINOTRANSFERASE 31 IU/L (13-69); ALKALINE PHOSPHATASE 130 IU/L (42-121); ANION GAP 9 (8-16); ASPARTATE AMINO TRANSFERASE 28 IU/L (15-46); CALCIUM 8.9 mg/dl (8.4-10.2); CARBON DIOXIDE 29 mmol/L (21-31); CHLORIDE 103 mmol/L (97-110); CREATININE 0.36 mg/dl (0.44-1.00); GLUCOSE 102 mg/dl (70-220); MAGNESIUM 1.5 mg/dl (1.7-2.5); PHOSPHORUS 2.8 mg/dl (2.5-4.9); POTASSIUM 3.7 mmol/L (3.5-5.1); SODIUM 137 mmol/L (135-144); TRIGLYCERIDES 197 mg/dl (0-149)
[2017-05-10 19:33] LABS: PREALBUMIN 11.7 mg/dl (17.6-36.0)
[2017-05-10 19:57] LABS: BLOOD UREA NITROGEN < 2 mg/dl (7-20)
[2017-05-10 20:02] VITALS: BP 123/75; RESP 18
[2017-05-10] MEDS: ACCU-CHEK XX SCH (21:03)
[2017-05-10] MEDS: ATORVASTATIN 20 MG TAB PO SCH (21:03)
--- NOTE | 2017-05-10 22:26 | PN ---
Date/Time of Note Date/Time of Note DATE: 05/10/17 TIME: 22:21 Assessment/Plan VTE Prophylaxis VTE Prophylaxis Intervention: LMWH Lines/Catheters IV Catheter Type (from Nrs): Central Line Central line still needed: Yes Urinary Cath still in place: Yes Reason Cath still needed: other (indicate) (monitor I&O) Assessment/Plan Chief Complaint/Hosp Course Assessment and plan 1. 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 continue antibiotics. status post CT-guided biopsy of lesion in area. She did also have transurethral resection of the bladder tumors on April 29, 2017. 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 Patient status post surgical intervention including cystoscopy and insertion of bilateral ureteral catheters and partial cystectomy, exploratory laparotomy with extensive lysis of adhesions, repair of colotomy, excision of pelvic cystic lesion (May 05, 2017). continue with analgesics. no oral intake for now per surgeon. Will plan for TPN 2. UTI. Continue antibiotics per ID recommendations. 3. Seizure disorder. Continue on Keppra. Stable at present. 4. History of rheumatoid arthritis. Continue with analgesics as needed 5. Sjogren's syndrome. Stable at present. Will monitor 6. History of brain tumor. Patient is status post resection. No active issue at this time. Will monitor. 7. Hypotension status post surgical intervention. improved. Disposition and plan: discussed with surgeon. Plan for TPN. continue in-house monitoring. and supportive care Discussed plan of care with Dr. Guardado Problems: Subjective 24 Hr Interval Summary Free Text/Dictation reports less abd pain at this time. comfortable at present. Exam/Review of Systems Vital Signs Vitals Vital Signs Date Time Temp Pulse Resp B/P Pulse Ox O2 Delivery O2 Flow Rate FiO2 05/10/17 20:02 98.4 86 18 123/75 96 05/07/17 16:30 Nasal Cannula 05/07/17 10:30 2.0 Intake and Output 05/09/17 05/09/17 05/10/17 15:00 23:00 07:00 Intake Total 600 ml 100 ml 2060 ml Output Total 0 ml 2010 ml 1600 ml Balance 600 ml -1910 ml 460 ml Exam Constitutional: alert, oriented Psych: nl mood/affect Eyes: nl conjunctiva Neck: No jvd Respiratory: clear to auscultation, normal air movement Cardiovascular: regular rate and rhythm Gastrointestinal: soft Musculoskeletal: nl extremities to inspection 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: FRENCH LECTURER II-XII intact, nl mental status, nl speech Results Result Diagram: 05/10/17 0730 05/10/17 1806 Results 24 hrs Laboratory Tests Test 05/10/17 07:30 05/10/17 18:06 05/10/17 21:01 White Blood Count 4.1 #L Red Blood Count 2.80 L Hemoglobin 8.4 L Hematocrit 25.8 L Mean Corpuscular Volume 92.1 Mean Corpuscular Hemoglobin 30.0 Mean Corpuscular Hemoglobin Concent 32.6 Red Cell Distribution Width 15.0 H Platelet Count 277 Mean Platelet Volume 9.5 Neutrophils % 58.8 Lymphocytes % 21.5 Monocytes % 15.1 H Eosinophils % 4.2 Basophils % 0.2 Nucleated Red Blood Cells % 0.0 Neutrophils # (Manual) 2 Lymphocytes # 0.9 Monocytes # 0.6 Eosinophils # 0.2 Basophils # 0.0 Nucleated Red Blood Cells # 0.0 Sodium Level 138 137 Potassium Level 3.5 3.7 Chloride Level 105 103 Carbon Dioxide Level 27 29 Anion Gap 10 9 Blood Urea Nitrogen < 2 L < 2 L Creatinine 0.35 L 0.36 L Glucose Level 132 102 Calcium Level 8.5 8.9 Phosphorus Level 2.8 Magnesium Level 1.5 L Total Bilirubin Direct Bilirubin Indirect Bilirubin Aspartate Amino Transf (AST/SGOT) 28 Alanine Aminotransferase (ALT/SGPT) 31 Alkaline Phosphatase 130 H Total Protein 6.0 L Albumin 3.0 L Globulin 3.00 Albumin/Globulin Ratio 1.00 Prealbumin 11.7 L Triglycerides Level 197 H Bedside Glucose 116 Medications Medications Current Medications Ondansetron HCl (Zofran Inj) 4 mg Q6H PRN IV NAUSEA AND/OR VOMITING Last administered on 05/06/17 01:09; Admin Dose 4 MG; Start 04/23/17 at 22:30 Lorazepam (Ativan) 2 mg Q10MIN PRN IV seizure; Start 04/24/17 at 11:00 Methylprednisolone Sodium Succinate (Solu-Medrol) 20 mg DAILY IV Last administered on 05/10/17 08:52; Admin Dose 20 MG; Start 04/24/17 at 11:30 Folic Acid (Folic Acid) 1 mg DAILY PO Last administered on 05/10/17 08:53; Admin Dose 1 MG; Start 04/24/17 at 14:30 Multivitamins Therapeutic (Theragran) 1 tab DAILY PO Last administered on 08:53; Admin Dose 1 TAB; Start 04/24/17 at 14:30 Primidone (Mysoline) 250 mg TID PO Last administered on 05/10/17 21:03; Admin Dose 250 MG; Start 04/24/17 at 15:00 Sulfasalazine (Azulfidine) 500 mg QID PO Last administered on 05/10/17 21:03; Admin Dose 500 MG; Start 04/24/17 at 17:00 Atorvastatin Calcium (Lipitor) 20 mg DAILY@21 PO Last administered on 21:03; Admin Dose 20 MG; Start 04/24/17 at 21:00 Non-Formulary Medication 1 DOSE = 20 mcg/ 0.08ml DAILY SC Last administered on 05/10/17 09:04; Admin Dose 1 EA; Start 04/25/17 at 09:00 Levetiracetam (Keppra 500 Mg/ 100ml (Pmx)) 100 ml @ 400 mls/hr Q12 IVPB Last administered on 05/10/17 08:53; Admin Dose 400 MLS/HR; Start 04/30/17 at 21:00 Hydromorphone HCl (Dilaudid) 0.5 mg Q2H PRN IV PAIN LEVEL 1-5; Start 05/05/17 at 23:30 Pantoprazole (Protonix Tab) 40 mg DAILY@06 PO Last administered on 05/10/17 05 :43; Admin Dose 40 MG; Start 05/06/17 at 06:00 Hydromorphone HCl (Dilaudid) 1 mg Q2 PRN IV pain 6-10 Last administered on 05/10 21:03; Admin Dose 1 MG; Start 05/05/17 at 23:30 Tramadol HCl 50 mg 50 mg Q6H PRN PO PAIN LEVEL 4-7; Start 05/06/17 at 01:00 Total Parenteral Nutrition 1,000 ml @ 40 mls/hr Q24H IV Last administered on 15:48; Admin Dose 40 MLS/HR; Start 05/10/17 at 14:00 Fat Emulsion Intravenous (Liposyn Ii 20%) 250 ml @ 31 mls/hr Q24H IV Last administered on 05/10/17 15:48; Admin Dose 31 MLS/HR; Start 05/10/17 at 14:00 Diagnostic Test (Pha) (Accu-Chek) 1 ea Q4 XX Last administered on 05/10/17 21: 03; Admin Dose 1 EA; Start 05/10/17 at 21:00 Enoxaparin Sodium (Lovenox) 40 mg DAILY SC Last administered on 05/10/17 18:01 ; Admin Dose 40 MG; Start 05/10/17 at 17:30 WALTER PINA May 10, 2017 22:26
[2017-05-11] MEDS: ACCU-CHEK XX SCH ×6 (00:38→21:30)
[2017-05-11 02:00] VITALS: BP 118/56; RESP 18
[2017-05-11] MEDS: HYDROmorphONE 1 MG/ML SYG IV PRN ×4 (04:32→21:02)
[2017-05-11] MEDS: PANTOPRAZOLE (EC) 40 MG TAB PO SCH (06:00)
[2017-05-11 07:39] VITALS: BP 108/56; RESP 20
--- NOTE | 2017-05-11 07:50 | PN ---
Date/Time of Note Date/Time of Note DATE: 05/11/17 TIME: 07:49 Assessment/Plan VTE Prophylaxis VTE Prophylaxis Intervention: SCD's Lines/Catheters IV Catheter Type (from Nrs): Central Line Central line still needed: No Urinary Cath still in place: No Assessment/Plan Assessment/Plan Abdominal mass status post surgery 05/05/2017 Postoperative hypotension and tachycardia Preserved ejection fraction Rheumatoid arthritis Acute blood loss anemia status post blood transfusion -Blood pressure trend improved. As mentioned, hypotension likely multifactorial and patient currently remains asymptomatic with improved blood pressure. No need for any IV pressors at the current time. Would continue to hold any antihypertensives. Maintain potassium above 4.0 and magnesium of 2.0. Subjective 24 Hr Interval Summary Free Text/Dictation the aptient is stable Exam/Review of Systems Vital Signs Vitals Vital Signs Date Time Temp Pulse Resp B/P Pulse Ox O2 Delivery O2 Flow Rate FiO2 05/11/17 07:39 97.8 94 20 108/56 97 05/07/17 16:30 Nasal Cannula 05/07/17 10:30 2.0 Intake and Output 05/10/17 05/10/17 05/11/17 15:00 23:00 07:00 Intake Total 100 ml 700 ml 890 ml Output Total 15 ml 2005 ml 900 ml Balance 85 ml -1305 ml -10 ml Results Result Diagram: 05/10/17 0730 05/10/17 1806 Results 24 hrs Laboratory Tests Test 05/10/17 18:06 05/10/17 21:01 05/11/17 00:30 05/11/17 04:38 Sodium Level 137 Potassium Level 3.7 Chloride Level 103 Carbon Dioxide Level 29 Anion Gap 9 Blood Urea Nitrogen < 2 L Creatinine 0.36 L Glucose Level 102 Calcium Level 8.9 Phosphorus Level 2.8 Magnesium Level 1.5 L Total Bilirubin Direct Bilirubin Indirect Bilirubin Aspartate Amino Transf (AST/SGOT) 28 Alanine Aminotransferase (ALT/SGPT) 31 Alkaline Phosphatase 130 H Total Protein 6.0 L Albumin 3.0 L Globulin 3.00 Albumin/Globulin Ratio 1.00 Prealbumin 11.7 L Triglycerides Level 197 H Bedside Glucose 116 121 123 Medications Medications Current Medications Ondansetron HCl (Zofran Inj) 4 mg Q6H PRN IV NAUSEA AND/OR VOMITING Last administered on 05/06/17t 01:09; Admin Dose 4 MG; Start 04/23/17 at 22:30 Lorazepam (Ativan) 2 mg Q10MIN PRN IV seizure; Start 04/24/17 at 11:00 Methylprednisolone Sodium Succinate (Solu-Medrol) 20 mg DAILY IV Last administered on 05/10/17 08:52; Admin Dose 20 MG; Start 04/24/17 at 11:30 Folic Acid (Folic Acid) 1 mg DAILY PO Last administered on 05/10/17 08:53; Admin Dose 1 MG; Start 04/24/17 at 14:30 Multivitamins Therapeutic (Theragran) 1 tab DAILY PO Last administered on 08:53; Admin Dose 1 TAB; Start 04/24/17 at 14:30 Primidone (Mysoline) 250 mg TID PO Last administered on 05/10/17 21:03; Admin Dose 250 MG; Start 04/24/17 at 15:00 Sulfasalazine (Azulfidine) 500 mg QID PO Last administered on 05/10/17 21:03; Admin Dose 500 MG; Start 04/24/17 at 17:00 Atorvastatin Calcium (Lipitor) 20 mg DAILY@21 PO Last administered on 21:03; Admin Dose 20 MG; Start 04/24/17 at 21:00 Non-Formulary Medication 1 DOSE = 20 mcg/ 0.08ml DAILY SC Last administered on 05/10/17 09:04; Admin Dose 1 EA; Start 04/25/17 at 09:00 Levetiracetam (Keppra 500 Mg/ 100ml (Pmx)) 100 ml @ 400 mls/hr Q12 IVPB Last administered on 05/10/17 22:20; Admin Dose 400 MLS/HR; Start 04/30/17 at 21:00 Hydromorphone HCl (Dilaudid) 0.5 mg Q2H PRN IV PAIN LEVEL 1-5; Start 05/05/17 at 23:30 Pantoprazole (Protonix Tab) 40 mg DAILY@06 PO Last administered on 05/10/17 05 :43; Admin Dose 40 MG; Start 05/06/17 at 06:00 Hydromorphone HCl (Dilaudid) 1 mg Q2 PRN IV pain 6-10 Last administered on 05/11 04:32; Admin Dose 1 MG; Start 05/05/17 at 23:30 Tramadol HCl 50 mg 50 mg Q6H PRN PO PAIN LEVEL 4-7; Start 05/06/17 at 01:00 Total Parenteral Nutrition 1,000 ml @ 40 mls/hr Q24H IV Last administered on 15:48; Admin Dose 40 MLS/HR; Start 05/10/17 at 14:00 Fat Emulsion Intravenous (Liposyn Ii 20%) 250 ml @ 31 mls/hr Q24H IV Last administered on 05/10/17 15:48; Admin Dose 31 MLS/HR; Start 05/10/17 at 14:00 Diagnostic Test (Pha) (Accu-Chek) 1 ea Q4 XX Last administered on 05/11/17 04: 41; Admin Dose 1 EA; Start 05/10/17 at 21:00 Enoxaparin Sodium (Lovenox) 40 mg DAILY SC Last administered on 05/10/17 18:01 ; Admin Dose 40 MG; Start 05/10/17 at 17:30 ARIN OGDEN MD May 11, 2017 07:49
[2017-05-11] MEDS: SULFASALAZINE 500 MG TAB PO SCH ×4 (08:47→21:01)
[2017-05-11] MEDS: FOLIC ACID 1 MG TAB PO SCH (08:47)
[2017-05-11] MEDS: METHYLPREDNISOLONE 40 MG INJ IV SCH (08:47)
[2017-05-11] MEDS: LEVETIRACETAM 500 MG (PMX) 100 ML IVPB SCH ×2 (08:48→21:01)
[2017-05-11] MEDS: MULTIVITAMINS THERAPEUTIC TAB PO SCH (08:48)
[2017-05-11] MEDS: PRIMIDONE 250 MG TAB PO SCH ×3 (08:48→21:01)
[2017-05-11] MEDS: TERIPARATIDE 600 MCG/2.4 ML SC SCH (08:53)
--- NOTE | 2017-05-11 09:08 | PN ---
Date/Time of Note Date/Time of Note DATE: 05/11/17 TIME: 08:53 Assessment/Plan Lines/Catheters IV Catheter Type (from [facility]): Central Line Partida in Place (from [facility]): No Assessment/Plan Chief Complaint/Hosp Course 1. 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 11 x 9 cm, Partial cystectomy & bilateral ureteral stent placement; Path: Urachal cancer, intra-abdominal:Mucinous adenocarcinoma (path similar to previous bladder tumor); no bm/flatus -onc f/u; tx -pain management -will keep patient npo for now; tpn -OOB, Ambulate -IS 2. Leukocytosis: reactive +/- infective; now with leukopenia -monitor -supportive 3.Hypotension w tachycardia: r/o cardiac event: cta negative, trop neg, echo: preserved EF, cards recs noted; BP improved -supportive 4. Normocytic anemia: no acute bleed noted -monitor -transfuse as needed 5. History of pelvic ca, brain tumor: concern for recurrence -as above -per onc 6. UTI: multiorganism pathogens -abx per sensitivity 7. Hypoalbuminemia: likely nutritional -nutrition optimization as able, on tpn 8. Hypomagnesemia -replete and monitor Patient seen and examined in collaboration with Dr. Jonatan De Los Santos. Thank you. Problems: Subjective 24 Hr Interval Summary Feeling ok. Min intermittent abd/pelivc pain, improved with meds. No flatus/bm. On tpn. working with PT. No fevers, chills, cough, sob, n/v/d/dysuria, drainage from incision. Exam/Review of Systems Vital Signs Vitals Vital Signs Date Time Temp Pulse Resp B/P Pulse Ox O2 Delivery O2 Flow Rate FiO2 05/11/17 07:39 97.8 94 20 108/56 97 05/07/17 16:30 Nasal Cannula 05/07/17 10:30 2.0 Intake and Output 05/10/17 05/10/17 05/11/17 15:00 23:00 07:00 Intake Total 100 ml 700 ml 890 ml Output Total 15 ml 2005 ml 900 ml Balance 85 ml -1305 ml -10 ml Exam Free Text/Dictation Constitutional: alert, oriented, fatigued Psych: anxiety, no complaints Head: atraumatic, normocephalic Eyes: nl lids, nl sclera ENMT: mucosa pink and moist, nl nasal mucosa & septum Neck: non-tender, supple Respiratory: clear to auscultation, normal air movement Cardiovascular: regular rate and rhythm, No edema Gastrointestinal: soft, min tender, surgical incision with maurizio, no periwound erythema/drainage, alexa with min serosanguineous drainage : no dysuria, partida yellow urine Musculoskeletal: nl extremities to inspection Extremities: normal pulses, No edema 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: nl mental status, nl speech, nl strength Lymph: No nl lymph nodes Results Result Diagram: 05/10/17 0730 05/10/17 1806 JENIFER CABAN NP May 11, 2017 09:03
[2017-05-11] MEDS: ENOXAPARIN 40 MG/0.4 ML SYG SC SCH (09:22)
[2017-05-11 10:51] LABS: BASOPHILS % 0.3 % (0.0-2.0); EOSINOPHILS # 0.2 10^3/ul (0.0-0.5); EOSINOPHILS % 4.5 % (0.0-7.0); HEMATOCRIT 29.8 % (37.0-47.0); HEMOGLOBIN 9.3 g/dl (12.0-16.0); LYMPHOCYTES % 26.5 % (15.0-51.0); MEAN CORPUSCULAR HEMOGLOBIN 29.2 pg (29.0-33.0); MEAN CORPUSCULAR HGB CONC 31.2 g/dl (32.0-37.0); MEAN CORPUSCULAR VOLUME 93.7 fl (82.0-101.0); MONOCYTE # 0.5 10^3/ul (0.3-0.9); MONOCYTES % 13.2 % (0.0-11.0); PLATELET COUNT 286 10^3/UL (140-415); RED BLOOD COUNT 3.18 10^6/ul (4.20-5.40); RED CELL DISTRIBUTION WIDTH 15.1 % (11.5-14.5); WHITE BLOOD COUNT 3.8 10^3/ul (4.8-10.8)
[2017-05-11 11:08] LABS: CALCIUM 9.1 mg/dl (8.4-10.2); CREATININE 0.34 mg/dl (0.44-1.00); POTASSIUM 3.4 mmol/L (3.5-5.1)
[2017-05-11 11:12] LABS: MAGNESIUM 1.5 mg/dl (1.7-2.5); PHOSPHORUS 3.5 mg/dl (2.5-4.9)
[2017-05-11 13:27] VITALS: BP 101/61; RESP 20
[2017-05-11] MEDS: TPN 1,000 ML IV SCH (14:32)
[2017-05-11] MEDS: FAT EMULSION 20% 250 ML IV SCH (14:32)
--- NOTE | 2017-05-11 14:36 | PN ---
Date/Time of Note Date/Time of Note DATE: 05/11/17 TIME: 14:35 Assessment/Plan VTE Prophylaxis VTE Prophylaxis Intervention: SCD's Lines/Catheters IV Catheter Type (from Nrs): Central Line Central line still needed: Yes Urinary Cath still in place: No Assessment/Plan Chief Complaint/Hosp Course 1. 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 Status post transurethral resection of bladder tumors on 04/29/2017 followed by cystoscopy and insertion of bilateral ureteral catheters along with partial cystectomy on 05/05/2017. S/P exploratory laparotomy with extensive lysis of adhesions; repair of colotomy; implantation of biologic over the colon repair and bladder repair; excision of pelvic cystic lesion; and excision of previous scar and excessive abdominal skin and fat on 05/05/2017. 2. UTI. Continue antimicrobials as per ID. 3. Seizure disorder. Continue anticonvulsants. 4. Rheumatoid arthritis. Continue current care. 5. Sjogren's syndrome. Continue current care. 6. History of brain tumor. Status post resection. 7. Normocytic, normochromic anemia. Most probably anemia chronic disease. Monitor H&H closely. 8. Fluids, electrolytes, and nutrition. TPN.. 9. DVT prophylaxis. Bilateral sequential compression devices. 10. Plan. Postoperative management as per Urology and Surgery. Replete potassium and magnesium. Case discussed with Dr. Villareal. Problems: Subjective 24 Hr Interval Summary Free Text/Dictation Pain well controlled. Feels tired. Exam/Review of Systems Vital Signs Vitals Vital Signs Date Time Temp Pulse Resp B/P Pulse Ox O2 Delivery O2 Flow Rate FiO2 05/11/17 13:27 98.2 68 20 101/61 97 05/07/17 16:30 Nasal Cannula 05/07/17 10:30 2.0 Intake and Output 05/10/17 05/10/17 05/11/17 15:00 23:00 07:00 Intake Total 100 ml 700 ml 890 ml Output Total 15 ml 2005 ml 900 ml Balance 85 ml -1305 ml -10 ml Exam General: Adequately build 56 year-old male lying in bed in no apparent distress. HEENT: Normocephalic, atraumatic. Eyes: Anicteric sclerae, conjunctivae clear. ENT: Nasal septum midline, oral mucosa moist. Neck supple, no JVD noticed. Respiratory: Bilaterally clear breath sounds. No use of accessory muscles of respiration. No adventitious breath sounds. Cardiovascular: S1, S2 heard. No murmurs or gallops. Abdomen: Abdominal binder. UCHE drain draining sanguinous secretions. Genitourinary: Deferred. Extremities: No cyanosis, no clubbing, no edema. Peripheral pulses palpable. Chronic deformities of bilateral metacarpal joints. Neurologic: Cranial nerves II through XII grossly intact. The patient is awake, alert, and oriented. Skin: Normal skin turgor. No skin rashes. Results Result Diagram: 05/11/1792905/11/1730 Results 24 hrs Laboratory Tests Test 05/10/17 18:06 05/10/17 21:01 05/11/17 00:30 05/11/17 04:38 Sodium Level 137 Potassium Level 3.7 Chloride Level 103 Carbon Dioxide Level 29 Anion Gap 9 Blood Urea Nitrogen < 2 L Creatinine 0.36 L Glucose Level 102 Calcium Level 8.9 Phosphorus Level 2.8 Magnesium Level 1.5 L Total Bilirubin Direct Bilirubin Indirect Bilirubin Aspartate Amino Transf (AST/SGOT) 28 Alanine Aminotransferase (ALT/SGPT) 31 Alkaline Phosphatase 130 H Total Protein 6.0 L Albumin 3.0 L Globulin 3.00 Albumin/Globulin Ratio 1.00 Prealbumin 11.7 L Triglycerides Level 197 H Bedside Glucose 116 121 123 Test 05/11/17 08:06 05/11/17 09:30 05/11/17 12:18 Bedside Glucose 112 151 White Blood Count 3.8 L Red Blood Count 3.18 L Hemoglobin 9.3 L Hematocrit 29.8 L Mean Corpuscular Volume 93.7 Mean Corpuscular Hemoglobin 29.2 Mean Corpuscular Hemoglobin Concent 31.2 L Red Cell Distribution Width 15.1 H Platelet Count 286 Mean Platelet Volume 10.0 Neutrophils % 55.0 Lymphocytes % 26.5 Monocytes % 13.2 H Eosinophils % 4.5 Basophils % 0.3 Nucleated Red Blood Cells % 0.0 Neutrophils # (Manual) 2 Lymphocytes # 1.0 Monocytes # 0.5 Eosinophils # 0.2 Basophils # 0.0 Nucleated Red Blood Cells # 0.0 Sodium Level 141 Potassium Level 3.4 L Chloride Level 105 Carbon Dioxide Level 27 Anion Gap 12 Blood Urea Nitrogen 6 L Creatinine 0.34 L Glucose Level 134 Calcium Level 9.1 Phosphorus Level 3.5 Magnesium Level 1.5 L Medications Medications Current Medications Ondansetron HCl (Zofran Inj) 4 mg Q6H PRN IV NAUSEA AND/OR VOMITING Last administered on 05/06/17 01:09; Admin Dose 4 MG; Start 04/23/17 at 22:30 Lorazepam (Ativan) 2 mg Q10MIN PRN IV seizure; Start 04/24/17 at 11:00 Methylprednisolone Sodium Succinate (Solu-Medrol) 20 mg DAILY IV Last administered on 05/11/17 08:47; Admin Dose 20 MG; Start 04/24/17 at 11:30 Folic Acid (Folic Acid) 1 mg DAILY PO Last administered on 05/11/17 08:47; Admin Dose 1 MG; Start 04/24/17 at 14:30 Multivitamins Therapeutic (Theragran) 1 tab DAILY PO Last administered on 08:48; Admin Dose 1 TAB; Start 04/24/17 at 14:30 Primidone (Mysoline) 250 mg TID PO Last administered on 05/11/17 13:11; Admin Dose 250 MG; Start 04/24/17 at 15:00 Sulfasalazine (Azulfidine) 500 mg QID PO Last administered on 05/11/17 13:11; Admin Dose 500 MG; Start 04/24/17 at 17:00 Atorvastatin Calcium (Lipitor) 20 mg DAILY@21 PO Last administered on 21:03; Admin Dose 20 MG; Start 04/24/17 at 21:00 Non-Formulary Medication 1 DOSE = 20 mcg/ 0.08ml DAILY SC Last administered on 05/11/17 08:53; Admin Dose 1 EA; Start 04/25/17 at 09:00 Levetiracetam (Keppra 500 Mg/ 100ml (Pmx)) 100 ml @ 400 mls/hr Q12 IVPB Last administered on 05/11/17 08:48; Admin Dose 400 MLS/HR; Start 04/30/17 at 21:00 Hydromorphone HCl (Dilaudid) 0.5 mg Q2H PRN IV PAIN LEVEL 1-5; Start 05/05/17 at 23:30 Pantoprazole (Protonix Tab) 40 mg DAILY@06 PO Last administered on 05/10/17 05 :43; Admin Dose 40 MG; Start 05/06/17 at 06:00 Hydromorphone HCl (Dilaudid) 1 mg Q2 PRN IV pain 6-10 Last administered on 05/11 08:47; Admin Dose 1 MG; Start 05/05/17 at 23:30 Tramadol HCl 50 mg 50 mg Q6H PRN PO PAIN LEVEL 4-7; Start 05/06/17 at 01:00 Total Parenteral Nutrition 1,000 ml @ 40 mls/hr Q24H IV Last administered on 15:48; Admin Dose 40 MLS/HR; Start 05/10/17 at 14:00 Fat Emulsion Intravenous (Liposyn Ii 20%) 250 ml @ 31 mls/hr Q24H IV Last administered on 05/10/17 15:48; Admin Dose 31 MLS/HR; Start 05/10/17 at 14:00 Diagnostic Test (Pha) (Accu-Chek) 1 ea Q4 XX Last administered on 05/11/17 04: 41; Admin Dose 1 EA; Start 05/10/17 at 21:00 Enoxaparin Sodium (Lovenox) 40 mg DAILY SC Last administered on 05/11/17 09:22 ; Admin Dose 40 MG; Start 05/10/17 at 17:30 LATASHA RICHARDSON NP May 11, 2017 14:36
[2017-05-11] MEDS ORDERED: POTASSIUM CHLORIDE 30 MEQ in DEXTROSE 5% 250 ML IVPB ONE (16:00)
[2017-05-11] MEDS ORDERED: MAGNESIUM SULFATE 2 GM/50 ML 50 ML IVPB ONE (16:00)
--- NOTE | 2017-05-11 19:33 | PN ---
Date/Time of Note Date/Time of Note DATE: 05/11/17 TIME: 19:29 Assessment/Plan VTE Prophylaxis VTE Prophylaxis Intervention: LMWH Lines/Catheters IV Catheter Type (from Nrs): Central Line Central line still needed: Yes Urinary Cath still in place: Yes Reason Cath still needed: other (indicate) (urological surgery) Assessment/Plan Chief Complaint/Hosp Course Patient is postop partial cystectomy and excision of pelvic tumor. She is doing reasonably well ,continue the present treatment, pain management, IV fluids, keep the Partida catheter in place and continue the antibiotic Problems: Subjective 24 Hr Interval Summary Constitutional: no complaints Eyes: no complaints ENT: no complaints Respiratory: no complaints Cardiovascular: no complaints Gastrointestinal: No nausea, No passing stool, No vomiting Genitourinary: No bleeding, No hematuria Musculoskeletal: no complaints Skin: no complaints Neurologic: no complaints Exam/Review of Systems Vital Signs Vitals Vital Signs Date Time Temp Pulse Resp B/P Pulse Ox O2 Delivery O2 Flow Rate FiO2 05/11/17 13:27 98.2 68 20 101/61 97 05/07/17 16:30 Nasal Cannula 05/07/17 10:30 2.0 Intake and Output 05/10/17 05/10/17 05/11/17 15:00 23:00 07:00 Intake Total 100 ml 700 ml 890 ml Output Total 15 ml 2005 ml 900 ml Balance 85 ml -1305 ml -10 ml Exam Constitutional: alert, oriented Psych: no complaints Head: normocephalic Eyes: nl conjunctiva ENMT: nl external ears & nose Neck: supple Respiratory: normal air movement Cardiovascular: No edema Gastrointestinal: other (dressing changed earlier,wound looks OK), soft, surgical scars Genitourinary - Female: other (partida draining clear urine) Musculoskeletal: nl extremities to inspection Extremities: No calf tenderness, No edema Results Result Diagram: 05/11/1730 05/11/17 0930 Results 24 hrs Laboratory Tests Test 05/10/17 21:01 05/11/17 00:30 05/11/17 04:38 05/11/17 08:06 Bedside Glucose 116 121 123 112 Test 05/11/17 09:30 05/11/17 12:18 05/11/17 17:41 White Blood Count 3.8 L Red Blood Count 3.18 L Hemoglobin 9.3 L Hematocrit 29.8 L Mean Corpuscular Volume 93.7 Mean Corpuscular Hemoglobin 29.2 Mean Corpuscular Hemoglobin Concent 31.2 L Red Cell Distribution Width 15.1 H Platelet Count 286 Mean Platelet Volume 10.0 Neutrophils % 55.0 Lymphocytes % 26.5 Monocytes % 13.2 H Eosinophils % 4.5 Basophils % 0.3 Nucleated Red Blood Cells % 0.0 Neutrophils # (Manual) 2 Lymphocytes # 1.0 Monocytes # 0.5 Eosinophils # 0.2 Basophils # 0.0 Nucleated Red Blood Cells # 0.0 Sodium Level 141 Potassium Level 3.4 L Chloride Level 105 Carbon Dioxide Level 27 Anion Gap 12 Blood Urea Nitrogen 6 L Creatinine 0.34 L Glucose Level 134 Calcium Level 9.1 Phosphorus Level 3.5 Magnesium Level 1.5 L Bedside Glucose 151 129 Medications Medications Current Medications Ondansetron HCl (Zofran Inj) 4 mg Q6H PRN IV NAUSEA AND/OR VOMITING Last administered on 05/06/17 01:09; Admin Dose 4 MG; Start 04/23/17 at 22:30 Lorazepam (Ativan) 2 mg Q10MIN PRN IV seizure; Start 04/24/17 at 11:00 Methylprednisolone Sodium Succinate (Solu-Medrol) 20 mg DAILY IV Last administered on 05/11/17 08:47; Admin Dose 20 MG; Start 04/24/17 at 11:30 Folic Acid (Folic Acid) 1 mg DAILY PO Last administered on 05/11/17 08:47; Admin Dose 1 MG; Start 04/24/17 at 14:30 Multivitamins Therapeutic (Theragran) 1 tab DAILY PO Last administered on 08:48; Admin Dose 1 TAB; Start 04/24/17 at 14:30 Primidone (Mysoline) 250 mg TID PO Last administered on 05/11/17 13:11; Admin Dose 250 MG; Start 04/24/17 at 15:00 Sulfasalazine (Azulfidine) 500 mg QID PO Last administered on 05/11/17 16:36; Admin Dose 500 MG; Start 04/24/17 at 17:00 Atorvastatin Calcium (Lipitor) 20 mg DAILY@21 PO Last administered on 21:03; Admin Dose 20 MG; Start 04/24/17 at 21:00 Non-Formulary Medication 1 DOSE = 20 mcg/ 0.08ml DAILY SC Last administered on 05/11/17 08:53; Admin Dose 1 EA; Start 04/25/17 at 09:00 Levetiracetam (Keppra 500 Mg/ 100ml (Pmx)) 100 ml @ 400 mls/hr Q12 IVPB Last administered on 05/11/17 08:48; Admin Dose 400 MLS/HR; Start 04/30/17 at 21:00 Hydromorphone HCl (Dilaudid) 0.5 mg Q2H PRN IV PAIN LEVEL 1-5; Start 05/05/17 at 23:30 Pantoprazole (Protonix Tab) 40 mg DAILY@06 PO Last administered on 05/10/17 05 :43; Admin Dose 40 MG; Start 05/06/17 at 06:00 Hydromorphone HCl (Dilaudid) 1 mg Q2 PRN IV pain 6-10 Last administered on 05/11 16:01; Admin Dose 1 MG; Start 05/05/17 at 23:30 Tramadol HCl 50 mg 50 mg Q6H PRN PO PAIN LEVEL 4-7; Start 05/06/17 at 01:00 Total Parenteral Nutrition 1,000 ml @ 40 mls/hr Q24H IV Last administered on 14:32; Admin Dose 40 MLS/HR; Start 05/10/17 at 14:00 Fat Emulsion Intravenous (Liposyn Ii 20%) 250 ml @ 31 mls/hr Q24H IV Last administered on 05/11/17 14:32; Admin Dose 31 MLS/HR; Start 05/10/17 at 14:00 Diagnostic Test (Pha) (Accu-Chek) 1 ea Q4 XX Last administered on 05/11/17 04: 41; Admin Dose 1 EA; Start 05/10/17 at 21:00 Enoxaparin Sodium (Lovenox) 40 mg DAILY SC Last administered on 05/11/17 09:22 ; Admin Dose 40 MG; Start 05/10/17 at 17:30 TRESSA SIMMONS MD May 11, 2017 19:33
--- NOTE | 2017-05-11 20:24 | PN ---
DATE: 05/11/2017 MEDICAL ONCOLOGY PROGRESS NOTE: SUBJECTIVE: The patient is feeling well. She does have minimal abdominal pain. No nausea or vomiting. The patient has not been passing flatus or had bowel movements. OBJECTIVE DATA: GENERAL: The patient is a well-developed, well-nourished female who is in no acute distress. VITAL SIGNS: Temperature 98.2, pulse 68, respirations 20, blood pressure 101/61, and pulse oximetry 97 percent on room air. SKIN: No ecchymosis, no petechiae or rashes. HEENT: No mucosal lesions. No scleral icterus. NECK: Supple. No jugular venous distention or thyroid enlargement. NECK: Neck is supple. No jugular distention or thyroid enlargement. There is a triple lumen catheter in right internal jugular. No evidence of infection at insertion site. CHEST: Clear to auscultation and percussion. No rhonchi, wheezes, rales, or rubs. HEART: Regular sinus rhythm. No S3, S4, or murmurs. ABDOMEN: Soft. A surgical incision with surgical clips in place. There is no discharge. There is a Freddy-Dang drain present. GENITOURINARY: Stubbs catheter is in place. EXTREMITIES: No clubbing or cyanosis. There are the changes noted consistent with rheumatoid arthritis. The patient does have antithrombotic pumps in place. NEUROLOGIC: Neurologic is normal. LABORATORY AND DIAGNOSTIC DATA: White count 3800 with an absolute neutrophil count of 2000, hemoglobin 9.3, hematocrit 29.8, and platelet count is 286,000. Sodium 141, potassium 3.4, BUN 6, and creatinine 0.34. 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 2. Rheumatoid arthritis. 3. Sjogren syndrome. DISCUSSION: I have had discussion with the patient and her daughter. I have told them that she is progressing well. That it is not unusual for patients to have prolonged ileus after this type of abdominal surgery. I have recommended increasing activity level. Dictated By: Titi Eid MD /brandon/iona /Document#: [id number]
[2017-05-11 20:35] VITALS: BP 115/61; RESP 18
[2017-05-11] MEDS: ATORVASTATIN 20 MG TAB PO SCH (21:01)
[2017-05-12] MEDS: HYDROmorphONE 1 MG/ML SYG IV PRN ×4 (00:56→22:23)
[2017-05-12 02:00] VITALS: BP 108/63; RESP 20
[2017-05-12] MEDS: PANTOPRAZOLE (EC) 40 MG TAB PO SCH (05:33)
[2017-05-12] MEDS: HYDROCORTISONE 0.5% 28.35 GM CR TOP PRN ×3 (05:56→22:23)
[2017-05-12] MEDS: ACCU-CHEK XX SCH ×3 (05:56→18:01)
--- NOTE | 2017-05-12 08:17 | PN ---
Date/Time of Note Date/Time of Note DATE: 05/12/17 TIME: 08:15 Assessment/Plan VTE Prophylaxis VTE Prophylaxis Intervention: SCD's Lines/Catheters IV Catheter Type (from Nrs): Central Line Central line still needed: No Urinary Cath still in place: Yes Reason Cath still needed: urinary retention Assessment/Plan Assessment/Plan Pelvic tumor s/p partial cystectomy05/05/2017 Postoperative hypotension and tachycardia Preserved ejection fraction Rheumatoid arthritis Acute blood loss anemia status post blood transfusion -Blood pressure trend improved. As mentioned, hypotension likely multifactorial and patient currently remains asymptomatic with improved blood pressure. No need for any IV pressors at the current time. Would continue to hold any antihypertensives. Maintain potassium above 4.0 and magnesium of 2.0. Subjective 24 Hr Interval Summary Free Text/Dictation The patient slowly improving Exam/Review of Systems Vital Signs Vitals Vital Signs Date Time Temp Pulse Resp B/P Pulse Ox O2 Delivery O2 Flow Rate FiO2 05/12/17 02:00 98.3 90 20 108/63 96 Intake and Output 05/11/17 05/11/17 05/12/17 15:00 23:00 07:00 Intake Total 660 ml 765 ml 520 ml Output Total 10 ml 1810 ml 5 ml Balance 650 ml -1045 ml 515 ml Results Result Diagram: 05/11/17 0930 05/11/17 0930 Results 24 hrs Laboratory Tests Test 05/11/17 09:30 05/11/17 12:18 05/11/17 17:41 05/11/17 21:18 White Blood Count 3.8 L Red Blood Count 3.18 L Hemoglobin 9.3 L Hematocrit 29.8 L Mean Corpuscular Volume 93.7 Mean Corpuscular Hemoglobin 29.2 Mean Corpuscular Hemoglobin Concent 31.2 L Red Cell Distribution Width 15.1 H Platelet Count 286 Mean Platelet Volume 10.0 Neutrophils % 55.0 Lymphocytes % 26.5 Monocytes % 13.2 H Eosinophils % 4.5 Basophils % 0.3 Nucleated Red Blood Cells % 0.0 Neutrophils # (Manual) 2 Lymphocytes # 1.0 Monocytes # 0.5 Eosinophils # 0.2 Basophils # 0.0 Nucleated Red Blood Cells # 0.0 Sodium Level 141 Potassium Level 3.4 L Chloride Level 105 Carbon Dioxide Level 27 Anion Gap 12 Blood Urea Nitrogen 6 L Creatinine 0.34 L Glucose Level 134 Calcium Level 9.1 Phosphorus Level 3.5 Magnesium Level 1.5 L Bedside Glucose 151 129 128 Test 05/12/17 05:58 Bedside Glucose 136 Medications Medications Current Medications Ondansetron HCl (Zofran Inj) 4 mg Q6H PRN IV NAUSEA AND/OR VOMITING Last administered on 05/06/17 01:09; Admin Dose 4 MG; Start 04/23/17 at 22:30 Lorazepam (Ativan) 2 mg Q10MIN PRN IV seizure; Start 04/24/17 at 11:00 Methylprednisolone Sodium Succinate (Solu-Medrol) 20 mg DAILY IV Last administered on 05/11/17 08:47; Admin Dose 20 MG; Start 04/24/17 at 11:30 Folic Acid (Folic Acid) 1 mg DAILY PO Last administered on 05/11/17 08:47; Admin Dose 1 MG; Start 04/24/17 at 14:30 Multivitamins Therapeutic (Theragran) 1 tab DAILY PO Last administered on 08:48; Admin Dose 1 TAB; Start 04/24/17 at 14:30 Primidone (Mysoline) 250 mg TID PO Last administered on 05/11/17 21:01; Admin Dose 250 MG; Start 04/24/17 at 15:00 Sulfasalazine (Azulfidine) 500 mg QID PO Last administered on 05/11/17 21:01; Admin Dose 500 MG; Start 04/24/17 at 17:00 Atorvastatin Calcium (Lipitor) 20 mg DAILY@21 PO Last administered on 21:01; Admin Dose 20 MG; Start 04/24/17 at 21:00 Non-Formulary Medication 1 DOSE = 20 mcg/ 0.08ml DAILY SC Last administered on 05/11/17 08:53; Admin Dose 1 EA; Start 04/25/17 at 09:00 Levetiracetam (Keppra 500 Mg/ 100ml (Pmx)) 100 ml @ 400 mls/hr Q12 IVPB Last administered on 05/11/17 21:01; Admin Dose 400 MLS/HR; Start 04/30/17 at 21:00 Hydromorphone HCl (Dilaudid) 0.5 mg Q2H PRN IV PAIN LEVEL 1-5 Last administered on 05/12/17 00:56; Admin Dose 0.5 MG; Start 05/05/17 at 23:30 Pantoprazole (Protonix Tab) 40 mg DAILY@06 PO Last administered on 05/12/17 05 :33; Admin Dose 40 MG; Start 05/06/17 at 06:00 Hydromorphone HCl (Dilaudid) 1 mg Q2 PRN IV pain 6-10 Last administered on 05/11 21:02; Admin Dose 1 MG; Start 05/05/17 at 23:30 Tramadol HCl 50 mg 50 mg Q6H PRN PO PAIN LEVEL 4-7; Start 05/06/17 at 01:00 Total Parenteral Nutrition 1,000 ml @ 40 mls/hr Q24H IV Last administered on 14:32; Admin Dose 40 MLS/HR; Start 05/10/17 at 14:00 Fat Emulsion Intravenous (Liposyn Ii 20%) 250 ml @ 31 mls/hr Q24H IV Last administered on 05/11/17 14:32; Admin Dose 31 MLS/HR; Start 05/10/17 at 14:00 Enoxaparin Sodium (Lovenox) 40 mg DAILY SC Last administered on 05/11/17 09:22 ; Admin Dose 40 MG; Start 05/10/17 at 17:30 Diagnostic Test (Pha) (Accu-Chek) 1 ea Q6 XX Last administered on 05/12/17 05: 56; Admin Dose 1 EA; Start 05/12/17 at 06:00 Hydrocortisone (Hydrocortisone 0.5% Cr) 1 applic BID PRN TOP ITCHING Last administered on 05/12/17 05:56; Admin Dose 1 APPLIC; Start 05/12/17 at 02:30 ARIN OGDEN MD May 12, 2017 08:16
[2017-05-12 08:25] VITALS: BP 101/55; RESP 18
--- NOTE | 2017-05-12 09:21 | PN ---
Date/Time of Note Date/Time of Note DATE: 05/12/17 TIME: 09:19 Assessment/Plan VTE Prophylaxis VTE Prophylaxis Intervention: SCD's Lines/Catheters IV Catheter Type (from Nrs): Central Line Central line still needed: Yes Urinary Cath still in place: Yes Reason Cath still needed: other (indicate) (Urological surgery.) Assessment/Plan Chief Complaint/Hosp Course 1. 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 Status post transurethral resection of bladder tumors on 04/29/2017 followed by cystoscopy and insertion of bilateral ureteral catheters along with partial cystectomy on 05/05/2017. S/P exploratory laparotomy with extensive lysis of adhesions; repair of colotomy; implantation of biologic over the colon repair and bladder repair; excision of pelvic cystic lesion; and excision of previous scar and excessive abdominal skin and fat on 05/05/2017. 2. UTI. S/p antimicrobials as per ID. 3. Seizure disorder. Continue anticonvulsants. 4. Rheumatoid arthritis. Continue current care. 5. Sjogren's syndrome. Continue current care. 6. History of brain tumor. Status post resection. 7. Normocytic, normochromic anemia. Most probably anemia chronic disease. Monitor H&H closely. 8. Fluids, electrolytes, and nutrition. TPN.. 9. DVT prophylaxis. Bilateral sequential compression devices. 10. Plan. Postoperative management as per Urology and Surgery. The patient needs placement. Case management order for placement done. Case discussed with Dr. Villareal. Problems: Subjective 24 Hr Interval Summary Free Text/Dictation Pain well controlled. Exam/Review of Systems Vital Signs Vitals Vital Signs Date Time Temp Pulse Resp B/P Pulse Ox O2 Delivery O2 Flow Rate FiO2 05/12/17 08:25 97.5 89 18 101/55 95 Intake and Output 05/11/17 05/11/17 05/12/17 15:00 23:00 07:00 Intake Total 660 ml 765 ml 520 ml Output Total 10 ml 1810 ml 5 ml Balance 650 ml -1045 ml 515 ml Exam General: Adequately build 56 year-old male lying in bed in no apparent distress. HEENT: Normocephalic, atraumatic. Eyes: Anicteric sclerae, conjunctivae clear. ENT: Nasal septum midline, oral mucosa moist. Neck supple, no JVD noticed. Respiratory: Bilaterally clear breath sounds. No use of accessory muscles of respiration. No adventitious breath sounds. Cardiovascular: S1, S2 heard. No murmurs or gallops. Abdomen: Abdominal binder. UCHE drain draining sanguinous secretions. Genitourinary: Deferred. Extremities: No cyanosis, no clubbing, no edema. Peripheral pulses palpable. Chronic deformities of bilateral metacarpal joints. Neurologic: Cranial nerves II through XII grossly intact. The patient is awake, alert, and oriented. Skin: Normal skin turgor. No skin rashes. Results Result Diagram: 05/11/1730 05/11/1730 Results 24 hrs Laboratory Tests Test 05/11/17 09:30 05/11/17 12:18 05/11/17 17:41 05/11/17 21:18 White Blood Count 3.8 L Red Blood Count 3.18 L Hemoglobin 9.3 L Hematocrit 29.8 L Mean Corpuscular Volume 93.7 Mean Corpuscular Hemoglobin 29.2 Mean Corpuscular Hemoglobin Concent 31.2 L Red Cell Distribution Width 15.1 H Platelet Count 286 Mean Platelet Volume 10.0 Neutrophils % 55.0 Lymphocytes % 26.5 Monocytes % 13.2 H Eosinophils % 4.5 Basophils % 0.3 Nucleated Red Blood Cells % 0.0 Neutrophils # (Manual) 2 Lymphocytes # 1.0 Monocytes # 0.5 Eosinophils # 0.2 Basophils # 0.0 Nucleated Red Blood Cells # 0.0 Sodium Level 141 Potassium Level 3.4 L Chloride Level 105 Carbon Dioxide Level 27 Anion Gap 12 Blood Urea Nitrogen 6 L Creatinine 0.34 L Glucose Level 134 Calcium Level 9.1 Phosphorus Level 3.5 Magnesium Level 1.5 L Bedside Glucose 151 129 128 Test 05/12/17 05:58 Bedside Glucose 136 Medications Medications Current Medications Ondansetron HCl (Zofran Inj) 4 mg Q6H PRN IV NAUSEA AND/OR VOMITING Last administered on 05/06/17 01:09; Admin Dose 4 MG; Start 04/23/17 at 22:30 Lorazepam (Ativan) 2 mg Q10MIN PRN IV seizure; Start 04/24/17 at 11:00 Methylprednisolone Sodium Succinate (Solu-Medrol) 20 mg DAILY IV Last administered on 05/11/17 08:47; Admin Dose 20 MG; Start 04/24/17 at 11:30 Folic Acid (Folic Acid) 1 mg DAILY PO Last administered on 05/11/17 08:47; Admin Dose 1 MG; Start 04/24/17 at 14:30 Multivitamins Therapeutic (Theragran) 1 tab DAILY PO Last administered on 08:48; Admin Dose 1 TAB; Start 04/24/17 at 14:30 Primidone (Mysoline) 250 mg TID PO Last administered on 05/11/17 21:01; Admin Dose 250 MG; Start 04/24/17 at 15:00 Sulfasalazine (Azulfidine) 500 mg QID PO Last administered on 05/11/17 21:01; Admin Dose 500 MG; Start 04/24/17 at 17:00 Atorvastatin Calcium (Lipitor) 20 mg DAILY@21 PO Last administered on 21:01; Admin Dose 20 MG; Start 04/24/17 at 21:00 Non-Formulary Medication 1 DOSE = 20 mcg/ 0.08ml DAILY SC Last administered on 05/11/17 08:53; Admin Dose 1 EA; Start 04/25/17 at 09:00 Levetiracetam (Keppra 500 Mg/ 100ml (Pmx)) 100 ml @ 400 mls/hr Q12 IVPB Last administered on 05/11/17 21:01; Admin Dose 400 MLS/HR; Start 04/30/17 at 21:00 Hydromorphone HCl (Dilaudid) 0.5 mg Q2H PRN IV PAIN LEVEL 1-5 Last administered on 05/12/17 00:56; Admin Dose 0.5 MG; Start 05/05/17 at 23:30 Pantoprazole (Protonix Tab) 40 mg DAILY@06 PO Last administered on 05/12/17 05 :33; Admin Dose 40 MG; Start 05/06/17 at 06:00 Hydromorphone HCl (Dilaudid) 1 mg Q2 PRN IV pain 6-10 Last administered on 05/11 21:02; Admin Dose 1 MG; Start 05/05/17 at 23:30 Tramadol HCl 50 mg 50 mg Q6H PRN PO PAIN LEVEL 4-7; Start 05/06/17 at 01:00 Total Parenteral Nutrition 1,000 ml @ 40 mls/hr Q24H IV Last administered on 14:32; Admin Dose 40 MLS/HR; Start 05/10/17 at 14:00 Fat Emulsion Intravenous (Liposyn Ii 20%) 250 ml @ 31 mls/hr Q24H IV Last administered on 05/11/17 14:32; Admin Dose 31 MLS/HR; Start 05/10/17 at 14:00 Enoxaparin Sodium (Lovenox) 40 mg DAILY SC Last administered on 05/11/17 09:22 ; Admin Dose 40 MG; Start 05/10/17 at 17:30 Diagnostic Test (Pha) (Accu-Chek) 1 ea Q6 XX Last administered on 05/12/17 05: 56; Admin Dose 1 EA; Start 05/12/17 at 06:00 Hydrocortisone (Hydrocortisone 0.5% Cr) 1 applic BID PRN TOP ITCHING Last administered on 05/12/17 05:56; Admin Dose 1 APPLIC; Start 05/12/17 at 02:30 LATASHA RICHARDSON NP May 12, 2017 09:21
[2017-05-12] MEDS: SULFASALAZINE 500 MG TAB PO SCH ×4 (09:28→21:07)
[2017-05-12] MEDS: FOLIC ACID 1 MG TAB PO SCH (09:28)
[2017-05-12] MEDS: MULTIVITAMINS THERAPEUTIC TAB PO SCH (09:28)
[2017-05-12] MEDS: METHYLPREDNISOLONE 40 MG INJ IV SCH (09:28)
[2017-05-12] MEDS ORDERED: MAGNESIUM SULFATE 2 GM/50 ML 50 ML IVPB ONE (09:30)
[2017-05-12] MEDS: PRIMIDONE 250 MG TAB PO SCH ×3 (09:33→21:07)
[2017-05-12] MEDS: LEVETIRACETAM 500 MG (PMX) 100 ML IVPB SCH ×2 (09:33→21:07)
[2017-05-12] MEDS: TERIPARATIDE 600 MCG/2.4 ML SC SCH (09:34)
[2017-05-12 10:02] LABS: CALCIUM 8.9 mg/dl (8.4-10.2); CREATININE 0.35 mg/dl (0.44-1.00); MAGNESIUM 1.8 mg/dl (1.7-2.5); PHOSPHORUS 3.7 mg/dl (2.5-4.9); POTASSIUM 4.1 mmol/L (3.5-5.1)
[2017-05-12] MEDS: ENOXAPARIN 40 MG/0.4 ML SYG SC SCH (10:14)
--- NOTE | 2017-05-12 10:45 | PN ---
Date/Time of Note Date/Time of Note DATE: 05/12/17 TIME: 10:41 Assessment/Plan Lines/Catheters IV Catheter Type (from [facility]): Central Line Partida in Place (from [facility]): Yes Assessment/Plan Chief Complaint/Hosp Course 1. 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 11 x 9 cm, Partial cystectomy & bilateral ureteral stent placement; Path: Urachal cancer, intra-abdominal:Mucinous adenocarcinoma (path similar to previous bladder tumor); no bm/flatus -onc f/u; tx -pain management -continue npo; tpn -OOB, Ambulate -IS 2. Leukocytosis: reactive +/- infective; now with leukopenia -monitor -supportive 3.Hypotension w tachycardia: r/o cardiac event: cta negative, trop neg, echo: preserved EF, cards recs noted; BP improved -supportive 4. Normocytic anemia: no acute bleed noted -monitor -transfuse as needed 5. History of pelvic ca, brain tumor: concern for recurrence -as above -per onc 6. UTI: multiorganism pathogens -abx per sensitivity 7. Hypoalbuminemia: likely nutritional -nutrition optimization as able, on tpn 8. Hypomagnesemia: normalized -monitor Patient seen and examined in collaboration with Dr. Jonatan De Los Santos. Thank you. Problems: Subjective 24 Hr Interval Summary Patient with min discomfort. No acute pain. Ambulating with PT. Continues to be NPO with tpn for nutrition. No bm/gas. No fevers, chills, sob, cough, n/'v/d/ dysuria. Exam/Review of Systems Vital Signs Vitals Vital Signs Date Time Temp Pulse Resp B/P Pulse Ox O2 Delivery O2 Flow Rate FiO2 05/12/17 08:25 97.5 89 18 101/55 95 Intake and Output 05/11/17 05/11/17 05/12/17 15:00 23:00 07:00 Intake Total 660 ml 765 ml 520 ml Output Total 10 ml 1810 ml 5 ml Balance 650 ml -1045 ml 515 ml Exam Free Text/Dictation Constitutional: alert, oriented, pleasant Psych: anxiety, no complaints Head: atraumatic, normocephalic Eyes: nl lids, nl sclera ENMT: mucosa pink and moist, nl nasal mucosa & septum Neck: non-tender, supple Respiratory: clear to auscultation, normal air movement Cardiovascular: regular rate and rhythm, No edema Gastrointestinal: soft, min tender, surgical incision with maurizio, no periwound erythema/drainage, alexa with min serosanguineous drainage : no dysuria, partida yellow urine Musculoskeletal: nl extremities to inspection Extremities: normal pulses, No edema 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: nl mental status, nl speech, nl strength Lymph: No nl lymph nodes Results Result Diagram: 05/11/17 0930 05/12/17 [id number] JENIFER CABAN NP May 12, 2017 10:45
[2017-05-12 11:45] LABS: BASOPHILS % 0.5 % (0.0-2.0); EOSINOPHILS # 0.2 10^3/ul (0.0-0.5); EOSINOPHILS % 4.8 % (0.0-7.0); HEMATOCRIT 28.5 % (37.0-47.0); HEMOGLOBIN 8.9 g/dl (12.0-16.0); LYMPHOCYTES # 0.9 10^3/ul (0.8-2.9); LYMPHOCYTES % 21.8 % (15.0-51.0); MEAN CORPUSCULAR HEMOGLOBIN 29.5 pg (29.0-33.0); MEAN CORPUSCULAR HGB CONC 31.2 g/dl (32.0-37.0); MEAN CORPUSCULAR VOLUME 94.4 fl (82.0-101.0); MEAN PLATELET VOLUME 10.1 fl (7.4-10.4); MONOCYTE # 0.5 10^3/ul (0.3-0.9); MONOCYTES % 12.6 % (0.0-11.0); NEUTROPHILS % 59.8 % (39.0-77.0); PLATELET COUNT 294 10^3/UL (140-415); RED BLOOD COUNT 3.02 10^6/ul (4.20-5.40); RED CELL DISTRIBUTION WIDTH 15.1 % (11.5-14.5); WHITE BLOOD COUNT 4.1 10^3/ul (4.8-10.8)
[2017-05-12] MEDS: FAT EMULSION 20% 250 ML IV SCH (13:57)
[2017-05-12 14:51] VITALS: BP 101/69; RESP 19
[2017-05-12] MEDS: TPN 1,000 ML IV SCH (16:31)
[2017-05-12 20:08] VITALS: BP 103/58; RESP 20
[2017-05-12] MEDS: ATORVASTATIN 20 MG TAB PO SCH (21:07)
[2017-05-13 02:46] VITALS: BP 109/56; RESP 20
[2017-05-13] MEDS: PANTOPRAZOLE (EC) 40 MG TAB PO SCH (05:08)
[2017-05-13] MEDS: HYDROmorphONE 1 MG/ML SYG IV PRN ×4 (05:08→20:24)
[2017-05-13] MEDS: ACCU-CHEK XX SCH ×4 (06:00→20:40)
[2017-05-13 06:10] LABS: BASOPHILS % 0.2 % (0.0-2.0); EOSINOPHILS # 0.3 10^3/ul (0.0-0.5); EOSINOPHILS % 6.1 % (0.0-7.0); HEMATOCRIT 29.3 % (37.0-47.0); LYMPHOCYTES # 1.1 10^3/ul (0.8-2.9); LYMPHOCYTES % 26.2 % (15.0-51.0); MEAN CORPUSCULAR HEMOGLOBIN 28.7 pg (29.0-33.0); MEAN CORPUSCULAR HGB CONC 30.7 g/dl (32.0-37.0); MEAN CORPUSCULAR VOLUME 93.3 fl (82.0-101.0); MONOCYTE # 0.6 10^3/ul (0.3-0.9); MONOCYTES % 15.3 % (0.0-11.0); PLATELET COUNT 279 10^3/UL (140-415); RED BLOOD COUNT 3.14 10^6/ul (4.20-5.40); RED CELL DISTRIBUTION WIDTH 15.3 % (11.5-14.5); WHITE BLOOD COUNT 4.1 10^3/ul (4.8-10.8)
[2017-05-13 06:49] LABS: MAGNESIUM 1.7 mg/dl (1.7-2.5); PHOSPHORUS 3.9 mg/dl (2.5-4.9)
[2017-05-13 06:57] LABS: ALBUMIN 2.7 g/dl (3.3-4.9); ALBUMIN/GLOBULIN RATIO 0.87; CALCIUM 9.3 mg/dl (8.4-10.2); CREATININE 0.3 mg/dl (0.44-1.00); POTASSIUM 4.6 mmol/L (3.5-5.1); TOTAL PROTEIN 5.8 g/dl (6.1-8.1)
[2017-05-13 08:14] VITALS: BP 109/63; RESP 18
[2017-05-13] MEDS: FOLIC ACID 1 MG TAB PO SCH (08:59)
[2017-05-13] MEDS: PRIMIDONE 250 MG TAB PO SCH ×3 (08:59→20:24)
[2017-05-13] MEDS: MULTIVITAMINS THERAPEUTIC TAB PO SCH (08:59)
[2017-05-13] MEDS: METHYLPREDNISOLONE 40 MG INJ IV SCH (08:59)
[2017-05-13] MEDS: SULFASALAZINE 500 MG TAB PO SCH ×4 (08:59→20:24)
[2017-05-13] MEDS: ENOXAPARIN 40 MG/0.4 ML SYG SC SCH (09:09)
[2017-05-13] MEDS: TERIPARATIDE 600 MCG/2.4 ML SC SCH (09:11)
[2017-05-13] MEDS: LEVETIRACETAM 500 MG (PMX) 100 ML IVPB SCH ×2 (09:13→20:24)
--- NOTE | 2017-05-13 09:51 | PN ---
Date/Time of Note Date/Time of Note DATE: 05/13/17 TIME: 09:49 Assessment/Plan VTE Prophylaxis VTE Prophylaxis Intervention: SCD's Lines/Catheters IV Catheter Type (from Nrs): Central Line Central line still needed: Yes Urinary Cath still in place: Yes (ordered per not to remove f/c until further notice ) Reason Cath still needed: other (indicate) Assessment/Plan Chief Complaint/Hosp Course 1. 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 Status post transurethral resection of bladder tumors on 04/29/2017 followed by cystoscopy and insertion of bilateral ureteral catheters along with partial cystectomy on 05/05/2017. S/P exploratory laparotomy with extensive lysis of adhesions; repair of colotomy; implantation of biologic over the colon repair and bladder repair; excision of pelvic cystic lesion; and excision of previous scar and excessive abdominal skin and fat on 05/05/2017. 2. UTI. S/p antimicrobials as per ID. 3. Seizure disorder. Continue anticonvulsants. 4. Rheumatoid arthritis. Continue current care. 5. Sjogren's syndrome. Continue current care. 6. History of brain tumor. Status post resection. 7. Normocytic, normochromic anemia. Most probably anemia chronic disease. Monitor H&H closely. 8. Fluids, electrolytes, and nutrition. TPN.. 9. DVT prophylaxis. Bilateral sequential compression devices. 10. Plan. Postoperative management as per Urology and Surgery. The patient needs placement. The patient can be discharged to a SNF once cleared by surgery. Case discussed with Dr. Villareal. Problems: Subjective 24 Hr Interval Summary Free Text/Dictation Pain well controlled. Denies passing any gas. Exam/Review of Systems Vital Signs Vitals Vital Signs Date Time Temp Pulse Resp B/P Pulse Ox O2 Delivery O2 Flow Rate FiO2 05/13/17 08:14 98.0 94 18 109/63 96 Intake and Output 05/12/17 05/12/17 05/13/17 15:00 23:00 07:00 Intake Total 100 ml 730 ml 560 ml Output Total 850 ml 1015 ml Balance -750 ml -285 ml 560 ml Exam General: Adequately build 56 year-old male lying in bed in no apparent distress. HEENT: Normocephalic, atraumatic. Eyes: Anicteric sclerae, conjunctivae clear. ENT: Nasal septum midline, oral mucosa moist. Neck supple, no JVD noticed. Respiratory: Bilaterally clear breath sounds. No use of accessory muscles of respiration. No adventitious breath sounds. Cardiovascular: S1, S2 heard. No murmurs or gallops. Abdomen: Abdominal binder. UCHE drain draining sanguinous secretions. Genitourinary: Deferred. Extremities: No cyanosis, no clubbing, no edema. Peripheral pulses palpable. Chronic deformities of bilateral metacarpal joints. Neurologic: Cranial nerves II through XII grossly intact. The patient is awake, alert, and oriented. Skin: Normal skin turgor. No skin rashes. Results Result Diagram: 05/13/17 0530 05/13/17 0530 Results 24 hrs Laboratory Tests Test 05/12/17 11:53 05/12/17 12:25 05/12/17 18:00 05/12/17 23:48 Lab Scanned Report REFERENCE LAB Bedside Glucose 168 126 116 Test 05/13/17 05:30 05/13/17 06:10 05/13/17 09:03 White Blood Count 4.1 L Red Blood Count 3.14 L Hemoglobin 9.0 L Hematocrit 29.3 L Mean Corpuscular Volume 93.3 Mean Corpuscular Hemoglobin 28.7 L Mean Corpuscular Hemoglobin Concent 30.7 L Red Cell Distribution Width 15.3 H Platelet Count 279 Mean Platelet Volume 10.0 Neutrophils % 52.0 Lymphocytes % 26.2 Monocytes % 15.3 H Eosinophils % 6.1 Basophils % 0.2 Nucleated Red Blood Cells % 0.0 Neutrophils # (Manual) 2 Lymphocytes # 1.1 Monocytes # 0.6 Eosinophils # 0.3 Basophils # 0.0 Nucleated Red Blood Cells # 0.0 Sodium Level 142 Potassium Level 4.6 Chloride Level 102 Carbon Dioxide Level 27 Anion Gap 18 H Blood Urea Nitrogen 13 Creatinine 0.30 L Glucose Level 118 Calcium Level 9.3 Phosphorus Level 3.9 Magnesium Level 1.7 Total Bilirubin Direct Bilirubin Indirect Bilirubin Aspartate Amino Transf (AST/SGOT) 57 H Alanine Aminotransferase (ALT/SGPT) 31 Alkaline Phosphatase 112 Total Protein 5.8 L Albumin 2.7 L Globulin 3.10 Albumin/Globulin Ratio 0.87 Bedside Glucose 126 105 Medications Medications Current Medications Ondansetron HCl (Zofran Inj) 4 mg Q6H PRN IV NAUSEA AND/OR VOMITING Last administered on 05/06/17 01:09; Admin Dose 4 MG; Start 04/23/17 at 22:30 Lorazepam (Ativan) 2 mg Q10MIN PRN IV seizure; Start 04/24/17 at 11:00 Methylprednisolone Sodium Succinate (Solu-Medrol) 20 mg DAILY IV Last administered on 05/13/17 08:59; Admin Dose 20 MG; Start 04/24/17 at 11:30 Folic Acid (Folic Acid) 1 mg DAILY PO Last administered on 05/13/17 08:59; Admin Dose 1 MG; Start 04/24/17 at 14:30 Multivitamins Therapeutic (Theragran) 1 tab DAILY PO Last administered on 08:59; Admin Dose 1 TAB; Start 04/24/17 at 14:30 Primidone (Mysoline) 250 mg TID PO Last administered on 05/13/17 08:59; Admin Dose 250 MG; Start 04/24/17 at 15:00 Sulfasalazine (Azulfidine) 500 mg QID PO Last administered on 05/13/17 08:59; Admin Dose 500 MG; Start 04/24/17 at 17:00 Atorvastatin Calcium (Lipitor) 20 mg DAILY@21 PO Last administered on 21:07; Admin Dose 20 MG; Start 04/24/17 at 21:00 Non-Formulary Medication 1 DOSE = 20 mcg/ 0.08ml DAILY SC Last administered on 05/13/17 09:11; Admin Dose 1 EA; Start 04/25/17 at 09:00 Levetiracetam (Keppra 500 Mg/ 100ml (Pmx)) 100 ml @ 400 mls/hr Q12 IVPB Last administered on 05/13/17 09:13; Admin Dose 400 MLS/HR; Start 04/30/17 at 21:00 Hydromorphone HCl (Dilaudid) 0.5 mg Q2H PRN IV PAIN LEVEL 1-5 Last administered on 05/12/17 00:56; Admin Dose 0.5 MG; Start 05/05/17 at 23:30 Pantoprazole (Protonix Tab) 40 mg DAILY@06 PO Last administered on 05/13/17 05 :08; Admin Dose 40 MG; Start 05/06/17 at 06:00 Hydromorphone HCl (Dilaudid) 1 mg Q2 PRN IV pain 6-10 Last administered on 05/13 09:13; Admin Dose 1 MG; Start 05/05/17 at 23:30 Tramadol HCl 50 mg 50 mg Q6H PRN PO PAIN LEVEL 4-7; Start 05/06/17 at 01:00 Total Parenteral Nutrition 1,000 ml @ 40 mls/hr Q24H IV Last administered on 16:31; Admin Dose 40 MLS/HR; Start 05/10/17 at 14:00 Fat Emulsion Intravenous (Liposyn Ii 20%) 250 ml @ 31 mls/hr Q24H IV Last administered on 05/12/17 13:57; Admin Dose 31 MLS/HR; Start 05/10/17 at 14:00 Enoxaparin Sodium (Lovenox) 40 mg DAILY SC Last administered on 05/13/17 09:09 ; Admin Dose 40 MG; Start 05/10/17 at 17:30 Hydrocortisone (Hydrocortisone 0.5% Cr) 1 applic BID PRN TOP ITCHING Last administered on 05/12/17 17:53; Admin Dose 1 APPLIC; Start 05/12/17 at 02:30 Diagnostic Test (Pha) (Accu-Chek) 1 ea Q12 XX Last administered on 05/13/17 09 :19; Admin Dose 1 EA; Start 05/13/17 at 09:00 LATASHA RICHARDSON NP May 13, 2017 09:50
[2017-05-13] MEDS: FAT EMULSION 20% 250 ML IV SCH (14:04)
[2017-05-13 16:06] VITALS: BP 94/66; RESP 20
[2017-05-13] MEDS: TPN 1,000 ML IV SCH (17:45)
--- NOTE | 2017-05-13 19:16 | PN ---
DATE: 05/13/2017 SUBJECTIVE DATA: Patient states she is feeling well. Has mild abdominal pain but no nausea or vomiting. The patient is now receiving TPN. OBJECTIVE DATA: GENERAL: The patient is a well-developed, well-nourished female, in no acute distress. VITAL SIGNS: Temperature 98.7, pulse 97 per minute and regular, respirations 20, blood pressure 94/66, pulse oximetry 95 percent on room air. SKIN: No ecchymosis, no petechiae or rashes. HEENT: No mucosal lesions. No scleral icterus. Normocephalic. No evidence of trauma. The oral mucosa is moist without lesions. Tongue is well papillated. No gingival hyperplasia. No hypertrophy of Waldeyer's ring. The pupils equal, round, reactive and accommodation and extraocular movements are intact. NECK: Neck is supple. There is no jugular venous distention or thyroid enlargement. There is a triple-lumen catheter in the right internal jugular. Insertion site is not erythematous and there is no discharge. CHEST: Clear to auscultation, percussion. No rhonchi, wheezes, rales, or rubs. HEART: Regular sinus rhythm. No S3, S4, murmurs, no rubs. ABDOMEN: Soft. Surgical dressing in place. Bowel sounds are very active. There is a Freddy-Dang drain in place. EXTREMITIES: No clubbing, edema, or cyanosis. There are the changes consistent with rheumatoid arthritis involving the fingers and wrists. NEUROLOGIC: Normal. LABORATORY AND DIAGNOSTIC DATA: White count 4100, with an absolute neutrophil count of 2000; hemoglobin 9, hematocrit 29.3, and platelet count is 279,000. Sodium is 142, potassium 4.6, creatinine 0.3, BUN 13. ASSESSMENT AND PLAN: 1. Recurrent urachal carcinoma. Status post debulking surgery and partial cystectomy. 2. Rheumatoid arthritis. 3. Sjogren syndrome. The patient is doing well. She does have active bowel sounds and hopefully will be able to start eating. When I told the patient that as diet progresses she will be able to go home, she informed me that she is by herself and it is unlikely she would be able to take care of herself initially. Given the patient's underlying rheumatoid arthritis and postoperative status perhaps she is a candidate for acute rehab. Dictated By: Titi Eid MD /[email or web address] /Document#: [id number]
--- NOTE | 2017-05-13 19:34 | PN ---
Date/Time of Note Date/Time of Note DATE: 05/13/17 TIME: 19:29 Assessment/Plan VTE Prophylaxis VTE Prophylaxis Intervention: SCD's Lines/Catheters IV [facility] Type [facility] Central Line Central line still needed: Yes Urinary Cath still in place: Yes Reason Cath still needed: other (indicate) (Urological surgery) Assessment/Plan Chief Complaint/Hosp Course Patient is postop partial cystectomy and excision of pelvic tumor. She is doing reasonably well , she did pass flatus time 4 today.Continue the present treatment, pain management, IV fluids TPN, keep the Stubbs catheter in place and continue the antibiotic manager social media and licensed social worker consultations to address the concern of the patient after her discharge home as she states she has nobody to help her at home and she has arthritis and she will need help Problems: Subjective 24 Hr Interval Summary Constitutional: no complaints Eyes: no complaints ENT: no complaints Respiratory: no complaints Cardiovascular: no complaints Gastrointestinal: flatus Genitourinary: other (Stubbs catheter in place and draining clear urine) Musculoskeletal: other (Arthritis) Skin: no complaints Neurologic: no complaints Exam/Review of Systems Vital Signs Vitals Vital Signs Date Time Temp Pulse Resp B/P Pulse Ox O2 Delivery O2 Flow Rate FiO2 05/13/17 16:06 98.7 97 20 94/66 95 Intake and Output 05/12/17 05/12/17 05/13/17 15:00 23:00 07:00 Intake Total 100 ml 730 ml 560 ml Output Total 850 ml 1015 ml Balance -750 ml -285 ml 560 ml Exam Constitutional: alert, oriented Psych: other (Concern after her discharge at home, states that she needs help as her children work and cannot help her) Head: normocephalic Eyes: nl conjunctiva ENMT: nl external ears & nose Neck: supple Respiratory: normal air movement Cardiovascular: nl pulses Gastrointestinal: other (Dressing goes over the incision, UCHE drain draining small amount), surgical scars Genitourinary - Female: other (Stubbs catheter draining clear urine) Extremities: No calf tenderness, No tenderness Results Result Diagram: 05/13/17 0530 05/13/17 0530 Results 24 hrs Laboratory Tests Test 05/12/17 23:48 05/13/17 05:30 05/13/17 06:10 05/13/17 09:03 Bedside Glucose 116 126 105 White Blood Count 4.1 L Red Blood Count 3.14 L Hemoglobin 9.0 L Hematocrit 29.3 L Mean Corpuscular Volume 93.3 Mean Corpuscular Hemoglobin 28.7 L Mean Corpuscular Hemoglobin Concent 30.7 L Red Cell Distribution Width 15.3 H Platelet Count 279 Mean Platelet Volume 10.0 Neutrophils % 52.0 Lymphocytes % 26.2 Monocytes % 15.3 H Eosinophils % 6.1 Basophils % 0.2 Nucleated Red Blood Cells % 0.0 Neutrophils # (Manual) 2 Lymphocytes # 1.1 Monocytes # 0.6 Eosinophils # 0.3 Basophils # 0.0 Nucleated Red Blood Cells # 0.0 Sodium Level 142 Potassium Level 4.6 Chloride Level 102 Carbon Dioxide Level 27 Anion Gap 18 H Blood Urea Nitrogen 13 Creatinine 0.30 L Glucose Level 118 Calcium Level 9.3 Phosphorus Level 3.9 Magnesium Level 1.7 Total Bilirubin Direct Bilirubin Indirect Bilirubin Aspartate Amino Transf (AST/SGOT) 57 H Alanine Aminotransferase (ALT/SGPT) 31 Alkaline Phosphatase 112 Total Protein 5.8 L Albumin 2.7 L Globulin 3.10 Albumin/Globulin Ratio 0.87 Medications Medications Current Medications Ondansetron HCl (Zofran Inj) 4 mg Q6H PRN IV NAUSEA AND/OR VOMITING Last administered on 05/06/17 01:09; Admin Dose 4 MG; Start 04/23/17 at 22:30 Lorazepam (Ativan) 2 mg Q10MIN PRN IV seizure; Start 04/24/17 at 11:00 Methylprednisolone Sodium Succinate (Solu-Medrol) 20 mg DAILY IV Last administered on 05/13/17 08:59; Admin Dose 20 MG; Start 04/24/17 at 11:30 Folic Acid (Folic Acid) 1 mg DAILY PO Last administered on 05/13/17 08:59; Admin Dose 1 MG; Start 04/24/17 at 14:30 Multivitamins Therapeutic (Theragran) 1 tab DAILY PO Last administered on 08:59; Admin Dose 1 TAB; Start 04/24/17 at 14:30 Primidone (Mysoline) 250 mg TID PO Last administered on 05/13/17 14:03; Admin Dose 250 MG; Start 04/24/17 at 15:00 Sulfasalazine (Azulfidine) 500 mg QID PO Last administered on 05/13/17 17:45; Admin Dose 500 MG; Start 04/24/17 at 17:00 Atorvastatin Calcium (Lipitor) 20 mg DAILY@21 PO Last administered on 21:07; Admin Dose 20 MG; Start 04/24/17 at 21:00 Non-Formulary Medication 1 DOSE = 20 mcg/ 0.08ml DAILY SC Last administered on 05/13/17 09:11; Admin Dose 1 EA; Start 04/25/17 at 09:00 Levetiracetam (Keppra 500 Mg/ 100ml (Pmx)) 100 ml @ 400 mls/hr Q12 IVPB Last administered on 05/13/17 09:13; Admin Dose 400 MLS/HR; Start 04/30/17 at 21:00 Hydromorphone HCl (Dilaudid) 0.5 mg Q2H PRN IV PAIN LEVEL 1-5 Last administered on 05/12/17 00:56; Admin Dose 0.5 MG; Start 05/05/17 at 23:30 Pantoprazole (Protonix Tab) 40 mg DAILY@06 PO Last administered on 05/13/17 05 :08; Admin Dose 40 MG; Start 05/06/17 at 06:00 Hydromorphone HCl (Dilaudid) 1 mg Q2 PRN IV pain 6-10 Last administered on 05/13 14:09; Admin Dose 1 MG; Start 05/05/17 at 23:30 Tramadol HCl 50 mg 50 mg Q6H PRN PO PAIN LEVEL 4-7; Start 05/06/17 at 01:00 Total Parenteral Nutrition 1,000 ml @ 40 mls/hr Q24H IV Last administered on 17:45; Admin Dose 40 MLS/HR; Start 05/10/17 at 14:00 Fat Emulsion Intravenous (Liposyn Ii 20%) 250 ml @ 31 mls/hr Q24H IV Last administered on 05/13/17 14:04; Admin Dose 31 MLS/HR; Start 05/10/17 at 14:00 Enoxaparin Sodium (Lovenox) 40 mg DAILY SC Last administered on 05/13/17 09:09 ; Admin Dose 40 MG; Start 05/10/17 at 17:30 Hydrocortisone (Hydrocortisone 0.5% Cr) 1 applic BID PRN TOP ITCHING Last administered on 05/12/17 17:53; Admin Dose 1 APPLIC; Start 05/12/17 at 02:30 Diagnostic Test (Pha) (Accu-Chek) 1 ea Q12 XX Last administered on 05/13/17 09 :19; Admin Dose 1 EA; Start 05/13/17 at 09:00 TRESSA SIMMONS MD May 13, 2017 19:34
[2017-05-13 20:04] VITALS: BP 109/61; RESP 18
[2017-05-13] MEDS: ATORVASTATIN 20 MG TAB PO SCH (20:24)
[2017-05-14] MEDS: HYDROmorphONE 1 MG/ML SYG IV PRN ×6 (01:49→21:52)
[2017-05-14] MEDS: HYDROCORTISONE 0.5% 28.35 GM CR TOP PRN (01:49)
[2017-05-14 02:13] VITALS: BP 93/51; RESP 18
[2017-05-14] MEDS: PANTOPRAZOLE (EC) 40 MG TAB PO SCH (05:49)
[2017-05-14 07:34] LABS: BASOPHILS % 0.5 % (0.0-2.0); EOSINOPHILS # 0.3 10^3/ul (0.0-0.5); EOSINOPHILS % 7.4 % (0.0-7.0); HEMATOCRIT 27.1 % (37.0-47.0); HEMOGLOBIN 8.4 g/dl (12.0-16.0); LYMPHOCYTES # 1.3 10^3/ul (0.8-2.9); LYMPHOCYTES % 31.3 % (15.0-51.0); MEAN CORPUSCULAR VOLUME 93.4 fl (82.0-101.0); MEAN PLATELET VOLUME 9.9 fl (7.4-10.4); MONOCYTE # 0.6 10^3/ul (0.3-0.9); MONOCYTES % 15.1 % (0.0-11.0); NEUTROPHILS % 45.5 % (39.0-77.0); PLATELET COUNT 251 10^3/UL (140-415); RED CELL DISTRIBUTION WIDTH 14.8 % (11.5-14.5)
--- NOTE | 2017-05-14 07:54 | PN ---
Date/Time of Note Date/Time of Note DATE: 05/14/17 TIME: 07:53 Assessment/Plan VTE Prophylaxis VTE Prophylaxis Intervention: SCD's Lines/Catheters IV Catheter Type (from Nrs): Central Line Central line still needed: No Urinary Cath still in place: No Assessment/Plan Assessment/Plan Pelvic tumor s/p partial cystectomy05/05/2017 Postoperative hypotension and tachycardia Preserved ejection fraction Rheumatoid arthritis Acute blood loss anemia status post blood transfusion -Blood pressure trend improved. As mentioned, hypotension likely multifactorial and patient currently remains asymptomatic with improved blood pressure. No need for any IV pressors at the current time. Would continue to hold any antihypertensives. Maintain potassium above 4.0 and magnesium of 2.0. Subjective 24 Hr Interval Summary Free Text/Dictation The patient with no cahnge Exam/Review of Systems Vital Signs Vitals Vital Signs Date Time Temp Pulse Resp B/P Pulse Ox O2 Delivery O2 Flow Rate FiO2 05/14/17 02:13 98.3 90 18 93/51 98 Intake and Output 05/13/17 05/13/17 05/14/17 15:00 23:00 07:00 Intake Total 890 ml 440 ml Output Total 5 ml 505 ml 255 ml Balance -5 ml 385 ml 185 ml Results Result Diagram: 05/14/17 0700 05/13/17 0530 Results 24 hrs Laboratory Tests Test 05/13/17 09:03 05/13/17 20:33 05/14/17 07:00 Bedside Glucose 105 104 White Blood Count 4.0 L Red Blood Count 2.90 L Hemoglobin 8.4 L Hematocrit 27.1 L Mean Corpuscular Volume 93.4 Mean Corpuscular Hemoglobin 29.0 Mean Corpuscular Hemoglobin Concent 31.0 L Red Cell Distribution Width 14.8 H Platelet Count 251 Mean Platelet Volume 9.9 Neutrophils % 45.5 Lymphocytes % 31.3 Monocytes % 15.1 H Eosinophils % 7.4 H Basophils % 0.5 Nucleated Red Blood Cells % 0.0 Neutrophils # (Manual) 2 Lymphocytes # 1.3 Monocytes # 0.6 Eosinophils # 0.3 Basophils # 0.0 Nucleated Red Blood Cells # 0.0 Medications Medications Current Medications Ondansetron HCl (Zofran Inj) 4 mg Q6H PRN IV NAUSEA AND/OR VOMITING Last administered on 05/06/17t 01:09; Admin Dose 4 MG; Start 04/23/17 at 22:30 Lorazepam (Ativan) 2 mg Q10MIN PRN IV seizure; Start 04/24/17 at 11:00 Methylprednisolone Sodium Succinate (Solu-Medrol) 20 mg DAILY IV Last administered on 05/13/17 08:59; Admin Dose 20 MG; Start 04/24/17 at 11:30 Folic Acid (Folic Acid) 1 mg DAILY PO Last administered on 05/13/17 08:59; Admin Dose 1 MG; Start 04/24/17 at 14:30 Multivitamins Therapeutic (Theragran) 1 tab DAILY PO Last administered on 08:59; Admin Dose 1 TAB; Start 04/24/17 at 14:30 Primidone (Mysoline) 250 mg TID PO Last administered on 05/13/17 20:24; Admin Dose 250 MG; Start 04/24/17 at 15:00 Sulfasalazine (Azulfidine) 500 mg QID PO Last administered on 05/13/17 20:24; Admin Dose 500 MG; Start 04/24/17 at 17:00 Atorvastatin Calcium (Lipitor) 20 mg DAILY@21 PO Last administered on 20:24; Admin Dose 20 MG; Start 04/24/17 at 21:00 Non-Formulary Medication 1 DOSE = 20 mcg/ 0.08ml DAILY SC Last administered on 05/13/17 09:11; Admin Dose 1 EA; Start 04/25/17 at 09:00 Levetiracetam (Keppra 500 Mg/ 100ml (Pmx)) 100 ml @ 400 mls/hr Q12 IVPB Last administered on 05/13/17 20:24; Admin Dose 400 MLS/HR; Start 04/30/17 at 21:00 Hydromorphone HCl (Dilaudid) 0.5 mg Q2H PRN IV PAIN LEVEL 1-5 Last administered on 05/12/17 00:56; Admin Dose 0.5 MG; Start 05/05/17 at 23:30 Pantoprazole (Protonix Tab) 40 mg DAILY@06 PO Last administered on 05/14/17 05 :49; Admin Dose 40 MG; Start 05/06/17 at 06:00 Hydromorphone HCl (Dilaudid) 1 mg Q2 PRN IV pain 6-10 Last administered on 05/14 05:49; Admin Dose 1 MG; Start 05/05/17 at 23:30 Tramadol HCl 50 mg 50 mg Q6H PRN PO PAIN LEVEL 4-7; Start 05/06/17 at 01:00 Total Parenteral Nutrition 1,000 ml @ 40 mls/hr Q24H IV Last administered on 17:45; Admin Dose 40 MLS/HR; Start 05/10/17 at 14:00 Fat Emulsion Intravenous (Liposyn Ii 20%) 250 ml @ 31 mls/hr Q24H IV Last administered on 05/13/17 14:04; Admin Dose 31 MLS/HR; Start 05/10/17 at 14:00 Enoxaparin Sodium (Lovenox) 40 mg DAILY SC Last administered on 05/13/17 09:09 ; Admin Dose 40 MG; Start 05/10/17 at 17:30 Hydrocortisone (Hydrocortisone 0.5% Cr) 1 applic BID PRN TOP ITCHING Last administered on 05/14/17 01:49; Admin Dose 1 APPLIC; Start 05/12/17 at 02:30 Diagnostic Test (Pha) (Accu-Chek) 1 ea Q12 XX Last administered on 05/13/17 20 :40; Admin Dose 1 EA; Start 05/13/17 at 09:00 ARIN OGDEN MD May 14, 2017 07:54
[2017-05-14 07:56] VITALS: BP 100/55; RESP 16
[2017-05-14 08:38] LABS: MAGNESIUM 1.6 mg/dl (1.7-2.5)
[2017-05-14 08:42] LABS: ALBUMIN 2.9 g/dl (3.3-4.9); ALBUMIN/GLOBULIN RATIO 0.96; CALCIUM 8.8 mg/dl (8.4-10.2); CREATININE 0.4 mg/dl (0.44-1.00); POTASSIUM 4.1 mmol/L (3.5-5.1); TOTAL PROTEIN 5.9 g/dl (6.1-8.1)
[2017-05-14] MEDS: MULTIVITAMINS THERAPEUTIC TAB PO SCH (08:43)
[2017-05-14] MEDS: PRIMIDONE 250 MG TAB PO SCH ×3 (08:43→20:55)
[2017-05-14] MEDS: FOLIC ACID 1 MG TAB PO SCH (08:43)
[2017-05-14] MEDS: SULFASALAZINE 500 MG TAB PO SCH ×4 (08:43→20:55)
[2017-05-14] MEDS: LEVETIRACETAM 500 MG (PMX) 100 ML IVPB SCH ×2 (08:44→20:52)
[2017-05-14] MEDS: TERIPARATIDE 600 MCG/2.4 ML SC SCH (08:47)
[2017-05-14] MEDS: METHYLPREDNISOLONE 40 MG INJ IV SCH (08:56)
[2017-05-14] MEDS: ENOXAPARIN 40 MG/0.4 ML SYG SC SCH (09:24)
[2017-05-14] MEDS: ACCU-CHEK XX SCH ×2 (09:25→20:55)
--- NOTE | 2017-05-14 13:40 | PN ---
Date/Time of Note Date/Time of Note DATE: 05/14/17 TIME: 13:28 Assessment/Plan VTE Prophylaxis VTE Prophylaxis Intervention: ambulation, LMWH Lines/Catheters IV Catheter Type (from Nrs): Central Line Central line still needed: Yes Urinary Cath still in place: No Assessment/Plan Assessment/Plan Pt is gradually recovering. Surgery f/u regarding oral intake would be helpful. Pt is anxious to get more P.T. I agree with this and think placement in acute rehab after the hospitalization would be the best approach. Otherwise continue current plans. Subjective 24 Hr Interval Summary Free Text/Dictation Pt is up in a chair and walks a bit but wants to be more active. Exam/Review of Systems Vital Signs Vitals Vital Signs Date Time Temp Pulse Resp B/P Pulse Ox O2 Delivery O2 Flow Rate FiO2 05/14/17 07:56 98.3 86 16 100/55 96 Intake and Output 05/13/17 05/13/17 05/14/17 15:00 23:00 07:00 Intake Total 890 ml 440 ml Output Total 5 ml 505 ml 255 ml Balance -5 ml 385 ml 185 ml Exam Constitutional: alert, oriented Head: normocephalic Eyes: nl conjunctiva Neck: supple Respiratory: clear to auscultation Cardiovascular: regular rate and rhythm Gastrointestinal: other (s/p surgery) Results Result Diagram: 05/14/17 0700 05/14/17 0700 Results 24 hrs Laboratory Tests Test 05/13/17 20:33 05/14/17 07:00 05/14/17 09:06 Bedside Glucose 104 125 White Blood Count 4.0 L Red Blood Count 2.90 L Hemoglobin 8.4 L Hematocrit 27.1 L Mean Corpuscular Volume 93.4 Mean Corpuscular Hemoglobin 29.0 Mean Corpuscular Hemoglobin Concent 31.0 L Red Cell Distribution Width 14.8 H Platelet Count 251 Mean Platelet Volume 9.9 Neutrophils % 45.5 Lymphocytes % 31.3 Monocytes % 15.1 H Eosinophils % 7.4 H Basophils % 0.5 Nucleated Red Blood Cells % 0.0 Neutrophils # (Manual) 2 Lymphocytes # 1.3 Monocytes # 0.6 Eosinophils # 0.3 Basophils # 0.0 Nucleated Red Blood Cells # 0.0 Sodium Level 138 Potassium Level 4.1 Chloride Level 104 Carbon Dioxide Level 27 Anion Gap 11 # Blood Urea Nitrogen 12 Creatinine 0.40 L Glucose Level 116 Calcium Level 8.8 Phosphorus Level 4.0 Magnesium Level 1.6 L Total Bilirubin Pending Direct Bilirubin Pending Indirect Bilirubin Pending Aspartate Amino Transf (AST/SGOT) 56 H Alanine Aminotransferase (ALT/SGPT) 33 Alkaline Phosphatase 115 Total Protein 5.9 L Albumin 2.9 L Globulin 3.00 Albumin/Globulin Ratio 0.96 Medications Medications Current Medications Ondansetron HCl (Zofran Inj) 4 mg Q6H PRN IV NAUSEA AND/OR VOMITING Last administered on 05/06/17 01:09; Admin Dose 4 MG; Start 04/23/17 at 22:30 Lorazepam (Ativan) 2 mg Q10MIN PRN IV seizure; Start 04/24/17 at 11:00 Methylprednisolone Sodium Succinate (Solu-Medrol) 20 mg DAILY IV Last administered on 05/14/17 08:56; Admin Dose 20 MG; Start 04/24/17 at 11:30 Folic Acid (Folic Acid) 1 mg DAILY PO Last administered on 05/14/17 08:43; Admin Dose 1 MG; Start 04/24/17 at 14:30 Multivitamins Therapeutic (Theragran) 1 tab DAILY PO Last administered on 08:43; Admin Dose 1 TAB; Start 04/24/17 at 14:30 Primidone (Mysoline) 250 mg TID PO Last administered on 05/14/17 12:59; Admin Dose 250 MG; Start 04/24/17 at 15:00 Sulfasalazine (Azulfidine) 500 mg QID PO Last administered on 05/14/17 12:57; Admin Dose 500 MG; Start 04/24/17 at 17:00 Atorvastatin Calcium (Lipitor) 20 mg DAILY@21 PO Last administered on 20:24; Admin Dose 20 MG; Start 04/24/17 at 21:00 Non-Formulary Medication 1 DOSE = 20 mcg/ 0.08ml DAILY SC Last administered on 05/14/17 08:47; Admin Dose 1 EA; Start 04/25/17 at 09:00 Levetiracetam (Keppra 500 Mg/ 100ml (Pmx)) 100 ml @ 400 mls/hr Q12 IVPB Last administered on 05/14/17 08:44; Admin Dose 400 MLS/HR; Start 04/30/17 at 21:00 Hydromorphone HCl (Dilaudid) 0.5 mg Q2H PRN IV PAIN LEVEL 1-5 Last administered on 05/12/17 00:56; Admin Dose 0.5 MG; Start 05/05/17 at 23:30 Pantoprazole (Protonix Tab) 40 mg DAILY@06 PO Last administered on 05/14/17 05 :49; Admin Dose 40 MG; Start 05/06/17 at 06:00 Hydromorphone HCl (Dilaudid) 1 mg Q2 PRN IV pain 6-10 Last administered on 05/14 09:37; Admin Dose 1 MG; Start 05/05/17 at 23:30 Tramadol HCl 50 mg 50 mg Q6H PRN PO PAIN LEVEL 4-7; Start 05/06/17 at 01:00 Total Parenteral Nutrition 1,000 ml @ 40 mls/hr Q24H IV Last administered on 17:45; Admin Dose 40 MLS/HR; Start 05/10/17 at 14:00 Fat Emulsion Intravenous (Liposyn Ii 20%) 250 ml @ 31 mls/hr Q24H IV Last administered on 05/13/17 14:04; Admin Dose 31 MLS/HR; Start 05/10/17 at 14:00 Enoxaparin Sodium (Lovenox) 40 mg DAILY SC Last administered on 05/14/17 09:24 ; Admin Dose 40 MG; Start 05/10/17 at 17:30 Hydrocortisone (Hydrocortisone 0.5% Cr) 1 applic BID PRN TOP ITCHING Last administered on 05/14/17 01:49; Admin Dose 1 APPLIC; Start 05/12/17 at 02:30 Diagnostic Test (Pha) (Accu-Chek) 1 ea Q12 XX Last administered on 05/14/17 09 :25; Admin Dose 1 EA; Start 05/13/17 at 09:00 SHANA OVALLE MD May 14, 2017 13:38
[2017-05-14] MEDS: TPN 1,000 ML IV SCH ×2 (14:00→19:49)
[2017-05-14] MEDS: FAT EMULSION 20% 250 ML IV SCH ×2 (14:00→15:59)
[2017-05-14 15:11] VITALS: BP 108/59; RESP 18
--- NOTE | 2017-05-14 15:26 | PN ---
Date/Time of Note Date/Time of Note DATE: 05/14/17 TIME: 15:25 Assessment/Plan VTE Prophylaxis VTE Prophylaxis Intervention: SCD's Lines/Catheters IV Catheter Type (from Nrs): Central Line Central line still needed: Yes Urinary Cath still in place: No Assessment/Plan Chief Complaint/Hosp Course 1. 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 Status post transurethral resection of bladder tumors on 04/29/2017 followed by cystoscopy and insertion of bilateral ureteral catheters along with partial cystectomy on 05/05/2017. S/P exploratory laparotomy with extensive lysis of adhesions; repair of colotomy; implantation of biologic over the colon repair and bladder repair; excision of pelvic cystic lesion; and excision of previous scar and excessive abdominal skin and fat on 05/05/2017. 2. UTI. S/p antimicrobials as per ID. 3. Seizure disorder. Continue anticonvulsants. 4. Rheumatoid arthritis. Continue current care. 5. Sjogren's syndrome. Continue current care. 6. History of brain tumor. Status post resection. 7. Normocytic, normochromic anemia. Most probably anemia chronic disease. Monitor H&H closely. 8. Fluids, electrolytes, and nutrition. TPN.. 9. DVT prophylaxis. Bilateral sequential compression devices. 10. Plan. Postoperative management as per Urology and Surgery. The patient needs placement. The patient can be discharged to a SNF once cleared by surgery. Replete magnesium. Case discussed with Dr. Villareal. Problems: Subjective 24 Hr Interval Summary Free Text/Dictation Pain well controlled. Exam/Review of Systems Vital Signs Vitals Vital Signs Date Time Temp Pulse Resp B/P Pulse Ox O2 Delivery O2 Flow Rate FiO2 05/14/17 15:11 98.3 95 18 108/59 98 Intake and Output 05/13/17 05/13/17 05/14/17 15:00 23:00 07:00 Intake Total 890 ml 440 ml Output Total 5 ml 505 ml 255 ml Balance -5 ml 385 ml 185 ml Exam General: Adequately build 56 year-old male lying in bed in no apparent distress. HEENT: Normocephalic, atraumatic. Eyes: Anicteric sclerae, conjunctivae clear. ENT: Nasal septum midline, oral mucosa moist. Neck supple, no JVD noticed. Respiratory: Bilaterally clear breath sounds. No use of accessory muscles of respiration. No adventitious breath sounds. Cardiovascular: S1, S2 heard. No murmurs or gallops. Abdomen: Abdominal binder. UCHE drain draining sanguinous secretions. Genitourinary: Deferred. Extremities: No cyanosis, no clubbing, no edema. Peripheral pulses palpable. Chronic deformities of bilateral metacarpal joints. Neurologic: Cranial nerves II through XII grossly intact. The patient is awake, alert, and oriented. Skin: Normal skin turgor. No skin rashes. Results Result Diagram: 05/14/17 0700 05/14/17 0700 Results 24 hrs Laboratory Tests Test 05/13/17 20:33 05/14/17 07:00 05/14/17 09:06 Bedside Glucose 104 125 White Blood Count 4.0 L Red Blood Count 2.90 L Hemoglobin 8.4 L Hematocrit 27.1 L Mean Corpuscular Volume 93.4 Mean Corpuscular Hemoglobin 29.0 Mean Corpuscular Hemoglobin Concent 31.0 L Red Cell Distribution Width 14.8 H Platelet Count 251 Mean Platelet Volume 9.9 Neutrophils % 45.5 Lymphocytes % 31.3 Monocytes % 15.1 H Eosinophils % 7.4 H Basophils % 0.5 Nucleated Red Blood Cells % 0.0 Neutrophils # (Manual) 2 Lymphocytes # 1.3 Monocytes # 0.6 Eosinophils # 0.3 Basophils # 0.0 Nucleated Red Blood Cells # 0.0 Sodium Level 138 Potassium Level 4.1 Chloride Level 104 Carbon Dioxide Level 27 Anion Gap 11 # Blood Urea Nitrogen 12 Creatinine 0.40 L Glucose Level 116 Calcium Level 8.8 Phosphorus Level 4.0 Magnesium Level 1.6 L Total Bilirubin Direct Bilirubin Indirect Bilirubin Aspartate Amino Transf (AST/SGOT) 56 H Alanine Aminotransferase (ALT/SGPT) 33 Alkaline Phosphatase 115 Total Protein 5.9 L Albumin 2.9 L Globulin 3.00 Albumin/Globulin Ratio 0.96 Medications Medications Current Medications Ondansetron HCl (Zofran Inj) 4 mg Q6H PRN IV NAUSEA AND/OR VOMITING Last administered on 05/06/17 01:09; Admin Dose 4 MG; Start 04/23/17 at 22:30 Lorazepam (Ativan) 2 mg Q10MIN PRN IV seizure; Start 04/24/17 at 11:00 Methylprednisolone Sodium Succinate (Solu-Medrol) 20 mg DAILY IV Last administered on 05/14/17 08:56; Admin Dose 20 MG; Start 04/24/17 at 11:30 Folic Acid (Folic Acid) 1 mg DAILY PO Last administered on 05/14/17 08:43; Admin Dose 1 MG; Start 04/24/17 at 14:30 Multivitamins Therapeutic (Theragran) 1 tab DAILY PO Last administered on 08:43; Admin Dose 1 TAB; Start 04/24/17 at 14:30 Primidone (Mysoline) 250 mg TID PO Last administered on 05/14/17 12:59; Admin Dose 250 MG; Start 04/24/17 at 15:00 Sulfasalazine (Azulfidine) 500 mg QID PO Last administered on 05/14/17 12:57; Admin Dose 500 MG; Start 04/24/17 at 17:00 Atorvastatin Calcium (Lipitor) 20 mg DAILY@21 PO Last administered on 20:24; Admin Dose 20 MG; Start 04/24/17 at 21:00 Non-Formulary Medication 1 DOSE = 20 mcg/ 0.08ml DAILY SC Last administered on 05/14/17 08:47; Admin Dose 1 EA; Start 04/25/17 at 09:00 Levetiracetam (Keppra 500 Mg/ 100ml (Pmx)) 100 ml @ 400 mls/hr Q12 IVPB Last administered on 05/14/17 08:44; Admin Dose 400 MLS/HR; Start 04/30/17 at 21:00 Hydromorphone HCl (Dilaudid) 0.5 mg Q2H PRN IV PAIN LEVEL 1-5 Last administered on 05/12/17 00:56; Admin Dose 0.5 MG; Start 05/05/17 at 23:30 Pantoprazole (Protonix Tab) 40 mg DAILY@06 PO Last administered on 05/14/17 05 :49; Admin Dose 40 MG; Start 05/06/17 at 06:00 Hydromorphone HCl (Dilaudid) 1 mg Q2 PRN IV pain 6-10 Last administered on 05/14 14:14; Admin Dose 1 MG; Start 05/05/17 at 23:30 Tramadol HCl 50 mg 50 mg Q6H PRN PO PAIN LEVEL 4-7; Start 05/06/17 at 01:00 Total Parenteral Nutrition 1,000 ml @ 40 mls/hr Q24H IV Last administered on 17:45; Admin Dose 40 MLS/HR; Start 05/10/17 at 14:00 Fat Emulsion Intravenous (Liposyn Ii 20%) 250 ml @ 31 mls/hr Q24H IV Last administered on 05/13/17 14:04; Admin Dose 31 MLS/HR; Start 05/10/17 at 14:00 Enoxaparin Sodium (Lovenox) 40 mg DAILY SC Last administered on 05/14/17 09:24 ; Admin Dose 40 MG; Start 05/10/17 at 17:30 Hydrocortisone (Hydrocortisone 0.5% Cr) 1 applic BID PRN TOP ITCHING Last administered on 05/14/17 01:49; Admin Dose 1 APPLIC; Start 05/12/17 at 02:30 Diagnostic Test (Pha) (Accu-Chek) 1 ea Q12 XX Last administered on 05/14/17 09 :25; Admin Dose 1 EA; Start 05/13/17 at 09:00 LATASHA RICHARDSON NP May 14, 2017 15:26
[2017-05-14] MEDS ORDERED: MAGNESIUM SULFATE 2 GM/50 ML 50 ML IVPB ONE (15:30)
[2017-05-14 20:00] VITALS: BP 114/70; RESP 20
[2017-05-14] MEDS: ATORVASTATIN 20 MG TAB PO SCH (20:55)
--- NOTE | 2017-05-14 22:43 | PN ---
Date/Time of Note Date/Time of Note DATE: 05/14/17 TIME: 22:33 Assessment/Plan Lines/Catheters IV Catheter Type (from [facility]): Central Line Stubbs in Place (from [facility]): Yes Assessment/Plan Chief Complaint/Hosp Course 1. 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 11 x 9 cm, Partial cystectomy & bilateral ureteral stent placement; Path: Urachal cancer, intra-abdominal:Mucinous adenocarcinoma (path similar to previous bladder tumor); alexa with serosanguineous drainage; no bm, +flatus -onc f/u; tx -pain management -plan to start trail of clear liquids/ then increase diet slowly and taper off tpn -OOB, increase ambulation -IS 2. Leukocytosis: reactive +/- infective; now with leukopenia -monitor -supportive 3.Episode of hypotension w tachycardia:currently BP improved -supportive -careful monitoring 4. Normocytic anemia: no acute bleed noted -monitor -transfuse as needed 5. History of pelvic ca, recurrent -as above -per onc 6. UTI: multiorganism pathogens -abx per sensitivity 7. Hypoalbuminemia: likely nutritional -nutrition optimization as able, on tpn Patient seen and examined in collaboration with Dr. Jonatan De Los Santos. Thank you. Problems: Subjective 24 Hr Interval Summary Feeling well. Continuing to ambulate with PT. Increasing in activity. Abdominal incision without drainage or discomfort. Continues to have drainage from drain. No fevers, chills, n/v/d/dysuria. Exam/Review of Systems Vital Signs Vitals Vital Signs Date Time Temp Pulse Resp B/P Pulse Ox O2 Delivery O2 Flow Rate FiO2 05/14/17 15:11 98.3 95 18 108/59 98 Intake and Output 05/13/17 05/13/17 05/14/17 15:00 23:00 07:00 Intake Total 890 ml 440 ml Output Total 5 ml 505 ml 255 ml Balance -5 ml 385 ml 185 ml Exam Free Text/Dictation Constitutional: alert, oriented, pleasant Psych: anxiety, no complaints Head: atraumatic, normocephalic Eyes: nl lids, nl sclera ENMT: mucosa pink and moist, nl nasal mucosa & septum Neck: non-tender, supple; central line, Respiratory: clear to auscultation, normal air movement Cardiovascular: regular rate and rhythm, No edema Gastrointestinal: soft, min tender, surgical incision with maurizio, no periwound erythema/drainage, alexa with min serosanguineous drainage : no dysuria, Musculoskeletal: nl extremities to inspection Extremities: normal pulses, No edema 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: nl mental status, nl speech, nl strength Lymph: No nl lymph nodes Results Result Diagram: 05/14/17 0700 05/14/17 0700 JENIFER CABAN NP May 14, 2017 22:43
[2017-05-15 01:28] VITALS: BP 140/79; RESP 20
[2017-05-15] MEDS ORDERED: hydrOXYzine HCL 25 MG TAB PO PRN (01:30)
[2017-05-15 02:00] VITALS: BP 100/57; RESP 20
[2017-05-15] MEDS: HYDROmorphONE 1 MG/ML SYG IV PRN ×4 (02:47→20:59)
[2017-05-15] MEDS: PANTOPRAZOLE (EC) 40 MG TAB PO SCH (06:16)
--- NOTE | 2017-05-15 08:00 | PN ---
Date/Time of Note Date/Time of Note DATE: 05/15/17 TIME: 07:59 Assessment/Plan VTE Prophylaxis VTE Prophylaxis Intervention: SCD's, other Lines/Catheters IV Catheter Type (from Nrs): Central Line Central line still needed: No Urinary Cath still in place: No Assessment/Plan Assessment/Plan Pelvic tumor s/p partial cystectomy05/05/2017 Postoperative hypotension and tachycardia Preserved ejection fraction Rheumatoid arthritis Acute blood loss anemia status post blood transfusion -Blood pressure trend improved. As mentioned, hypotension likely multifactorial and patient currently remains asymptomatic with improved blood pressure. Would continue to hold any antihypertensives. Maintain potassium above 4.0 and magnesium of 2.0. Subjective 24 Hr Interval Summary Free Text/Dictation the patient continues to improve Exam/Review of Systems Vital Signs Vitals Vital Signs Date Time Temp Pulse Resp B/P Pulse Ox O2 Delivery O2 Flow Rate FiO2 05/15/17 02:00 97.8 88 20 100/57 96 Intake and Output 05/14/17 05/14/17 05/15/17 15:00 23:00 07:00 Intake Total 680 ml 600 ml Output Total 5 ml 820 ml 1000 ml Balance -5 ml -140 ml -400 ml Results Result Diagram: 05/14/17 0700 05/14/17 0700 Results 24 hrs Laboratory Tests Test 05/14/17 09:06 05/14/17 20:47 Bedside Glucose 125 110 Medications Medications Current Medications Ondansetron HCl (Zofran Inj) 4 mg Q6H PRN IV NAUSEA AND/OR VOMITING Last administered on 05/06/17 01:09; Admin Dose 4 MG; Start 04/23/17 at 22:30 Lorazepam (Ativan) 2 mg Q10MIN PRN IV seizure; Start 04/24/17 at 11:00 Methylprednisolone Sodium Succinate (Solu-Medrol) 20 mg DAILY IV Last administered on 05/14/17 08:56; Admin Dose 20 MG; Start 04/24/17 at 11:30 Folic Acid (Folic Acid) 1 mg DAILY PO Last administered on 05/14/17 08:43; Admin Dose 1 MG; Start 04/24/17 at 14:30 Multivitamins Therapeutic (Theragran) 1 tab DAILY PO Last administered on 08:43; Admin Dose 1 TAB; Start 04/24/17 at 14:30 Primidone (Mysoline) 250 mg TID PO Last administered on 05/14/17 20:55; Admin Dose 250 MG; Start 04/24/17 at 15:00 Sulfasalazine (Azulfidine) 500 mg QID PO Last administered on 05/14/17 20:55; Admin Dose 500 MG; Start 04/24/17 at 17:00 Atorvastatin Calcium (Lipitor) 20 mg DAILY@21 PO Last administered on 20:55; Admin Dose 20 MG; Start 04/24/17 at 21:00 Non-Formulary Medication 1 DOSE = 20 mcg/ 0.08ml DAILY SC Last administered on 05/14/17 08:47; Admin Dose 1 EA; Start 04/25/17 at 09:00 Levetiracetam (Keppra 500 Mg/ 100ml (Pmx)) 100 ml @ 400 mls/hr Q12 IVPB Last administered on 05/14/17 20:52; Admin Dose 400 MLS/HR; Start 04/30/17 at 21:00 Hydromorphone HCl (Dilaudid) 0.5 mg Q2H PRN IV PAIN LEVEL 1-5 Last administered on 05/12/17 00:56; Admin Dose 0.5 MG; Start 05/05/17 at 23:30 Pantoprazole (Protonix Tab) 40 mg DAILY@06 PO Last administered on 05/15/17 06 :16; Admin Dose 40 MG; Start 05/06/17 at 06:00 Hydromorphone HCl (Dilaudid) 1 mg Q2 PRN IV pain 6-10 Last administered on 05/15 02:47; Admin Dose 1 MG; Start 05/05/17 at 23:30 Tramadol HCl 50 mg 50 mg Q6H PRN PO PAIN LEVEL 4-7; Start 05/06/17 at 01:00 Total Parenteral Nutrition 1,000 ml @ 40 mls/hr Q24H IV Last administered on 19:49; Admin Dose 40 MLS/HR; Start 05/10/17 at 14:00 Fat Emulsion Intravenous (Liposyn Ii 20%) 250 ml @ 31 mls/hr Q24H IV Last administered on 05/14/17 15:59; Admin Dose 31 MLS/HR; Start 05/10/17 at 14:00 Enoxaparin Sodium (Lovenox) 40 mg DAILY SC Last administered on 05/14/17 09:24 ; Admin Dose 40 MG; Start 05/10/17 at 17:30 Hydrocortisone (Hydrocortisone 0.5% Cr) 1 applic BID PRN TOP ITCHING Last administered on 05/14/17 01:49; Admin Dose 1 APPLIC; Start 05/12/17 at 02:30 Diagnostic Test (Pha) (Accu-Chek) 1 ea Q12 XX Last administered on 05/14/17 09 :25; Admin Dose 1 EA; Start 05/13/17 at 09:00 Hydroxyzine HCl (Atarax) 25 mg Q6H PRN PO ITCHING Last administered on 02:33; Admin Dose 25 MG; Start 05/15/17 at 01:30 ARIN OGDEN MD May 15, 2017 07:59
[2017-05-15 08:02] VITALS: BP 104/57; RESP 18
[2017-05-15 08:49] LABS: BASOPHILS % 0.5 % (0.0-2.0); EOSINOPHILS # 0.3 10^3/ul (0.0-0.5); EOSINOPHILS % 7.6 % (0.0-7.0); HEMATOCRIT 27.6 % (37.0-47.0); HEMOGLOBIN 8.3 g/dl (12.0-16.0); LYMPHOCYTES # 1.3 10^3/ul (0.8-2.9); LYMPHOCYTES % 30.8 % (15.0-51.0); MEAN CORPUSCULAR HGB CONC 30.1 g/dl (32.0-37.0); MEAN CORPUSCULAR VOLUME 93.2 fl (82.0-101.0); MEAN PLATELET VOLUME 10.3 fl (7.4-10.4); MONOCYTE # 0.6 10^3/ul (0.3-0.9); MONOCYTES % 13.4 % (0.0-11.0); NEUTROPHILS % 47.5 % (39.0-77.0); PLATELET COUNT 266 10^3/UL (140-415); RED BLOOD COUNT 2.96 10^6/ul (4.20-5.40); RED CELL DISTRIBUTION WIDTH 14.7 % (11.5-14.5); WHITE BLOOD COUNT 4.2 10^3/ul (4.8-10.8)
[2017-05-15 09:04] LABS: MAGNESIUM 1.7 mg/dl (1.7-2.5); PHOSPHORUS 3.9 mg/dl (2.5-4.9)
[2017-05-15 09:10] LABS: ALBUMIN/GLOBULIN RATIO 0.96; CALCIUM 8.6 mg/dl (8.4-10.2); CREATININE 0.37 mg/dl (0.44-1.00); POTASSIUM 4.1 mmol/L (3.5-5.1); TOTAL PROTEIN 6.1 g/dl (6.1-8.1)
[2017-05-15] MEDS: PRIMIDONE 250 MG TAB PO SCH ×2 (09:14→13:00)
[2017-05-15] MEDS: MULTIVITAMINS THERAPEUTIC TAB PO SCH (09:14)
[2017-05-15] MEDS: SULFASALAZINE 500 MG TAB PO SCH ×4 (09:15→20:27)
[2017-05-15] MEDS: LEVETIRACETAM 500 MG (PMX) 100 ML IVPB SCH ×2 (09:15→20:27)
[2017-05-15] MEDS: FOLIC ACID 1 MG TAB PO SCH (09:15)
[2017-05-15] MEDS: METHYLPREDNISOLONE 40 MG INJ IV SCH (09:19)
[2017-05-15] MEDS: ACCU-CHEK XX SCH ×2 (09:20→21:00)
[2017-05-15] MEDS: TERIPARATIDE 600 MCG/2.4 ML SC SCH (09:20)
[2017-05-15] MEDS: ENOXAPARIN 40 MG/0.4 ML SYG SC SCH (09:34)
--- NOTE | 2017-05-15 10:19 | PN ---
Date/Time of Note Date/Time of Note DATE: 05/15/17 TIME: 10:13 Assessment/Plan Lines/Catheters IV Catheter Type (from [facility]): Central Line Stubbs in Place (from [facility]): No Assessment/Plan Chief Complaint/Hosp Course 1. 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 11 x 9 cm, Partial cystectomy & bilateral ureteral stent placement; Path: Urachal cancer, intra-abdominal:Mucinous adenocarcinoma (path similar to previous bladder tumor); alexa with serosanguineous drainage; no bm, +flatus -onc f/u; tx -pain management -plan to start trail of clear liquids/ then increase diet slowly and taper off tpn -OOB, increase ambulation -IS 2. Leukocytosis: reactive +/- infective; now leukopenia -monitor -supportive 3.Episode of hypotension w tachycardia:currently BP stable -supportive -careful monitoring 4. Normocytic anemia: no acute bleed noted -monitor -transfuse as needed 5. History of pelvic ca, recurrent -as above -per onc 6. UTI: multiorganism pathogens -abx per sensitivity 7. Hypoalbuminemia: likely nutritional -nutrition optimization as able, on tpn 8. Right neck pruritus: poss dressing or antimicrobial cleanser related Patient seen and examined in collaboration with Dr. Jonatan De Los Santos. Thank you. Problems: Subjective 24 Hr Interval Summary Feels well. +flatus/ no bm. No abdominal/pelvic pain. itching and erythema on right neck. No fevers, chills, discharge from incision, sob, cough, cp, palpitations, centeno, sz, n/v/d/dysuria. min serosanguineous drainage from alexa. Exam/Review of Systems Vital Signs Vitals Vital Signs Date Time Temp Pulse Resp B/P Pulse Ox O2 Delivery O2 Flow Rate FiO2 05/15/17 08:02 98.4 82 18 104/57 95 Intake and Output 05/14/17 05/14/17 05/15/17 15:00 23:00 07:00 Intake Total 680 ml 600 ml Output Total 5 ml 820 ml 1000 ml Balance -5 ml -140 ml -400 ml Exam Free Text/Dictation Constitutional: alert, oriented, pleasant Psych: anxiety, no complaints Head: atraumatic, normocephalic Eyes: nl lids, nl sclera ENMT: mucosa pink and moist, nl nasal mucosa & septum, redness right neck skin under tegaderm Neck: non-tender, supple; central line, Respiratory: clear to auscultation, normal air movement Cardiovascular: regular rate and rhythm, No edema Gastrointestinal: soft, min tender, surgical incision with maurizio, no periwound erythema/drainage, alexa with min serosanguineous drainage : no dysuria, Musculoskeletal: nl extremities to inspection Extremities: normal pulses, No edema 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: nl mental status, nl speech, nl strength Lymph: No nl lymph nodes Results Result Diagram: 05/15/17 0743 05/15/17 0743 JENIFER CABAN NP May 15, 2017 10:19
--- NOTE | 2017-05-15 11:25 | PN ---
Date/Time of Note Date/Time of Note DATE: 05/15/17 TIME: 11:23 Assessment/Plan VTE Prophylaxis VTE Prophylaxis Intervention: SCD's Lines/Catheters IV Catheter Type (from Nrs): Central Line Central line still needed: Yes Urinary Cath still in place: No Assessment/Plan Assessment/Plan Surgery to start a trial of clear liquids. Hopefully she can be fed soon. I would still suggest acute rehab when she is ready to leave the acute hospital setting. Subjective 24 Hr Interval Summary Free Text/Dictation Pt stable. Resting in bed for now. Exam/Review of Systems Vital Signs Vitals Vital Signs Date Time Temp Pulse Resp B/P Pulse Ox O2 Delivery O2 Flow Rate FiO2 05/15/17 08:02 98.4 82 18 104/57 95 Intake and Output 05/14/17 05/14/17 05/15/17 15:00 23:00 07:00 Intake Total 680 ml 600 ml Output Total 5 ml 820 ml 1000 ml Balance -5 ml -140 ml -400 ml Exam Pt sleeping and not awaken today. Results Result Diagram: 05/15/17 0743 05/15/17 0743 Results 24 hrs Laboratory Tests Test 05/14/17 20:47 05/15/17 07:43 05/15/17 09:14 Bedside Glucose 110 129 White Blood Count 4.2 L Red Blood Count 2.96 L Hemoglobin 8.3 L Hematocrit 27.6 L Mean Corpuscular Volume 93.2 Mean Corpuscular Hemoglobin 28.0 L Mean Corpuscular Hemoglobin Concent 30.1 L Red Cell Distribution Width 14.7 H Platelet Count 266 Mean Platelet Volume 10.3 Neutrophils % 47.5 Lymphocytes % 30.8 Monocytes % 13.4 H Eosinophils % 7.6 H Basophils % 0.5 Nucleated Red Blood Cells % 0.0 Neutrophils # (Manual) 2.0 Lymphocytes # 1.3 Monocytes # 0.6 Eosinophils # 0.3 Basophils # 0.0 Nucleated Red Blood Cells # 0.0 Sodium Level 144 Potassium Level 4.1 Chloride Level 104 Carbon Dioxide Level 27 Anion Gap 17 H Blood Urea Nitrogen 12 Creatinine 0.37 L Glucose Level 113 Calcium Level 8.6 Phosphorus Level 3.9 Magnesium Level 1.7 Total Bilirubin Direct Bilirubin Indirect Bilirubin Aspartate Amino Transf (AST/SGOT) 43 Alanine Aminotransferase (ALT/SGPT) 35 Alkaline Phosphatase 124 H Total Protein 6.1 Albumin 3.0 L Globulin 3.10 Albumin/Globulin Ratio 0.96 Medications Medications Current Medications Ondansetron HCl (Zofran Inj) 4 mg Q6H PRN IV NAUSEA AND/OR VOMITING Last administered on 05/06/17 01:09; Admin Dose 4 MG; Start 04/23/17 at 22:30 Lorazepam (Ativan) 2 mg Q10MIN PRN IV seizure; Start 04/24/17 at 11:00 Methylprednisolone Sodium Succinate (Solu-Medrol) 20 mg DAILY IV Last administered on 05/15/17 09:19; Admin Dose 20 MG; Start 04/24/17 at 11:30 Folic Acid (Folic Acid) 1 mg DAILY PO Last administered on 05/15/17 09:15; Admin Dose 1 MG; Start 04/24/17 at 14:30 Multivitamins Therapeutic (Theragran) 1 tab DAILY PO Last administered on 09:14; Admin Dose 1 TAB; Start 04/24/17 at 14:30 Primidone (Mysoline) 250 mg TID PO Last administered on 05/15/17 09:14; Admin Dose 250 MG; Start 04/24/17 at 15:00 Sulfasalazine (Azulfidine) 500 mg QID PO Last administered on 05/15/17 09:15; Admin Dose 500 MG; Start 04/24/17 at 17:00 Atorvastatin Calcium (Lipitor) 20 mg DAILY@21 PO Last administered on 20:55; Admin Dose 20 MG; Start 04/24/17 at 21:00 Non-Formulary Medication 1 DOSE = 20 mcg/ 0.08ml DAILY SC Last administered on 05/15/17 09:20; Admin Dose 1 EA; Start 04/25/17 at 09:00 Levetiracetam (Keppra 500 Mg/ 100ml (Pmx)) 100 ml @ 400 mls/hr Q12 IVPB Last administered on 05/15/17 09:15; Admin Dose 400 MLS/HR; Start 04/30/17 at 21:00 Hydromorphone HCl (Dilaudid) 0.5 mg Q2H PRN IV PAIN LEVEL 1-5 Last administered on 05/15/17 09:26; Admin Dose 0.5 MG; Start 05/05/17 at 23:30 Pantoprazole (Protonix Tab) 40 mg DAILY@06 PO Last administered on 05/15/17 06 :16; Admin Dose 40 MG; Start 05/06/17 at 06:00 Hydromorphone HCl (Dilaudid) 1 mg Q2 PRN IV pain 6-10 Last administered on 05/15 02:47; Admin Dose 1 MG; Start 05/05/17 at 23:30 Tramadol HCl 50 mg 50 mg Q6H PRN PO PAIN LEVEL 4-7; Start 05/06/17 at 01:00 Total Parenteral Nutrition 1,000 ml @ 40 mls/hr Q24H IV Last administered on 19:49; Admin Dose 40 MLS/HR; Start 05/10/17 at 14:00 Fat Emulsion Intravenous (Liposyn Ii 20%) 250 ml @ 31 mls/hr Q24H IV Last administered on 05/14/17 15:59; Admin Dose 31 MLS/HR; Start 05/10/17 at 14:00 Enoxaparin Sodium (Lovenox) 40 mg DAILY SC Last administered on 05/15/17 09:34 ; Admin Dose 40 MG; Start 05/10/17 at 17:30 Hydrocortisone (Hydrocortisone 0.5% Cr) 1 applic BID PRN TOP ITCHING Last administered on 05/14/17 01:49; Admin Dose 1 APPLIC; Start 05/12/17 at 02:30 Diagnostic Test (Pha) (Accu-Chek) 1 ea Q12 XX Last administered on 05/15/17 09 :20; Admin Dose 1 EA; Start 05/13/17 at 09:00 Hydroxyzine HCl (Atarax) 25 mg Q6H PRN PO ITCHING Last administered on 02:33; Admin Dose 25 MG; Start 05/15/17 at 01:30 SHANA OVALLE MD May 15, 2017 11:25
--- NOTE | 2017-05-15 12:56 | PN ---
Date/Time of Note Date/Time of Note DATE: 05/15/17 TIME: 12:54 Assessment/Plan VTE Prophylaxis VTE Prophylaxis Intervention: SCD's Lines/Catheters IV Catheter Type (from Nrs): Central Line Central line still needed: Yes Urinary Cath still in place: Yes Reason Cath still needed: other (indicate) Assessment/Plan Chief Complaint/Hosp Course 1. 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 Status post transurethral resection of bladder tumors on 04/29/2017 followed by cystoscopy and insertion of bilateral ureteral catheters along with partial cystectomy on 05/05/2017. S/P exploratory laparotomy with extensive lysis of adhesions; repair of colotomy; implantation of biologic over the colon repair and bladder repair; excision of pelvic cystic lesion; and excision of previous scar and excessive abdominal skin and fat on 05/05/2017. 2. UTI. S/p antimicrobials as per ID. 3. Seizure disorder. Continue anticonvulsants. 4. Rheumatoid arthritis. Continue current care. 5. Sjogren's syndrome. Continue current care. 6. History of brain tumor. Status post resection. 7. Normocytic, normochromic anemia. Most probably anemia chronic disease. Monitor H&H closely. 8. Fluids, electrolytes, and nutrition. TPN. Clear liquids. 9. DVT prophylaxis. Bilateral sequential compression devices. 10. Plan. Postoperative management as per Urology and Surgery. The patient needs placement. The patient can be discharged to a SNF once cleared by surgery. Case discussed with Dr. Villareal. Problems: Subjective 24 Hr Interval Summary Free Text/Dictation The patient was started on clear liquids. Exam/Review of Systems Vital Signs Vitals Vital Signs Date Time Temp Pulse Resp B/P Pulse Ox O2 Delivery O2 Flow Rate FiO2 05/15/17 08:02 98.4 82 18 104/57 95 Intake and Output 05/14/17 05/14/17 05/15/17 15:00 23:00 07:00 Intake Total 680 ml 600 ml Output Total 5 ml 820 ml 1000 ml Balance -5 ml -140 ml -400 ml Exam General: Adequately build 56 year-old male lying in bed in no apparent distress. HEENT: Normocephalic, atraumatic. Eyes: Anicteric sclerae, conjunctivae clear. ENT: Nasal septum midline, oral mucosa moist. Neck supple, no JVD noticed. Respiratory: Bilaterally clear breath sounds. No use of accessory muscles of respiration. No adventitious breath sounds. Cardiovascular: S1, S2 heard. No murmurs or gallops. Abdomen: Abdominal binder. UCHE drain draining sanguinous secretions. Genitourinary: Deferred. Extremities: No cyanosis, no clubbing, no edema. Peripheral pulses palpable. Chronic deformities of bilateral metacarpal joints. Neurologic: Cranial nerves II through XII grossly intact. The patient is awake, alert, and oriented. Skin: Normal skin turgor. No skin rashes. Results Result Diagram: 05/15/17 0743 05/15/17 0743 Results 24 hrs Laboratory Tests Test 05/14/17 20:47 05/15/17 07:43 05/15/17 09:14 Bedside Glucose 110 129 White Blood Count 4.2 L Red Blood Count 2.96 L Hemoglobin 8.3 L Hematocrit 27.6 L Mean Corpuscular Volume 93.2 Mean Corpuscular Hemoglobin 28.0 L Mean Corpuscular Hemoglobin Concent 30.1 L Red Cell Distribution Width 14.7 H Platelet Count 266 Mean Platelet Volume 10.3 Neutrophils % 47.5 Lymphocytes % 30.8 Monocytes % 13.4 H Eosinophils % 7.6 H Basophils % 0.5 Nucleated Red Blood Cells % 0.0 Neutrophils # (Manual) 2.0 Lymphocytes # 1.3 Monocytes # 0.6 Eosinophils # 0.3 Basophils # 0.0 Nucleated Red Blood Cells # 0.0 Sodium Level 144 Potassium Level 4.1 Chloride Level 104 Carbon Dioxide Level 27 Anion Gap 17 H Blood Urea Nitrogen 12 Creatinine 0.37 L Glucose Level 113 Calcium Level 8.6 Phosphorus Level 3.9 Magnesium Level 1.7 Total Bilirubin Direct Bilirubin Indirect Bilirubin Aspartate Amino Transf (AST/SGOT) 43 Alanine Aminotransferase (ALT/SGPT) 35 Alkaline Phosphatase 124 H Total Protein 6.1 Albumin 3.0 L Globulin 3.10 Albumin/Globulin Ratio 0.96 Medications Medications Current Medications Ondansetron HCl (Zofran Inj) 4 mg Q6H PRN IV NAUSEA AND/OR VOMITING Last administered on 05/06/17t 01:09; Admin Dose 4 MG; Start 04/23/17 at 22:30 Lorazepam (Ativan) 2 mg Q10MIN PRN IV seizure; Start 04/24/17 at 11:00 Methylprednisolone Sodium Succinate (Solu-Medrol) 20 mg DAILY IV Last administered on 05/15/17 09:19; Admin Dose 20 MG; Start 04/24/17 at 11:30 Folic Acid (Folic Acid) 1 mg DAILY PO Last administered on 05/15/17 09:15; Admin Dose 1 MG; Start 04/24/17 at 14:30 Multivitamins Therapeutic (Theragran) 1 tab DAILY PO Last administered on 09:14; Admin Dose 1 TAB; Start 04/24/17 at 14:30 Primidone (Mysoline) 250 mg TID PO Last administered on 05/15/17 09:14; Admin Dose 250 MG; Start 04/24/17 at 15:00 Sulfasalazine (Azulfidine) 500 mg QID PO Last administered on 05/15/17 09:15; Admin Dose 500 MG; Start 04/24/17 at 17:00 Atorvastatin Calcium (Lipitor) 20 mg DAILY@21 PO Last administered on 20:55; Admin Dose 20 MG; Start 04/24/17 at 21:00 Non-Formulary Medication 1 DOSE = 20 mcg/ 0.08ml DAILY SC Last administered on 05/15/17 09:20; Admin Dose 1 EA; Start 04/25/17 at 09:00 Levetiracetam (Keppra 500 Mg/ 100ml (Pmx)) 100 ml @ 400 mls/hr Q12 IVPB Last administered on 05/15/17 09:15; Admin Dose 400 MLS/HR; Start 04/30/17 at 21:00 Hydromorphone HCl (Dilaudid) 0.5 mg Q2H PRN IV PAIN LEVEL 1-5 Last administered on 05/15/17 09:26; Admin Dose 0.5 MG; Start 05/05/17 at 23:30 Pantoprazole (Protonix Tab) 40 mg DAILY@06 PO Last administered on 05/15/17 06 :16; Admin Dose 40 MG; Start 05/06/17 at 06:00 Hydromorphone HCl (Dilaudid) 1 mg Q2 PRN IV pain 6-10 Last administered on 05/15 02:47; Admin Dose 1 MG; Start 05/05/17 at 23:30 Tramadol HCl 50 mg 50 mg Q6H PRN PO PAIN LEVEL 4-7; Start 05/06/17 at 01:00 Total Parenteral Nutrition 1,000 ml @ 40 mls/hr Q24H IV Last administered on 19:49; Admin Dose 40 MLS/HR; Start 05/10/17 at 14:00 Fat Emulsion Intravenous (Liposyn Ii 20%) 250 ml @ 31 mls/hr Q24H IV Last administered on 05/14/17 15:59; Admin Dose 31 MLS/HR; Start 05/10/17 at 14:00 Enoxaparin Sodium (Lovenox) 40 mg DAILY SC Last administered on 05/15/17 09:34 ; Admin Dose 40 MG; Start 05/10/17 at 17:30 Hydrocortisone (Hydrocortisone 0.5% Cr) 1 applic BID PRN TOP ITCHING Last administered on 05/14/17 01:49; Admin Dose 1 APPLIC; Start 05/12/17 at 02:30 Diagnostic Test (Pha) (Accu-Chek) 1 ea Q12 XX Last administered on 05/15/17 09 :20; Admin Dose 1 EA; Start 05/13/17 at 09:00 Hydroxyzine HCl (Atarax) 25 mg Q6H PRN PO ITCHING Last administered on 02:33; Admin Dose 25 MG; Start 05/15/17 at 01:30 LATASHA RICHARDSON NP May 15, 2017 12:56
[2017-05-15 14:00] VITALS: BP 117/63; RESP 18
[2017-05-15] MEDS: TPN 1,000 ML IV SCH (14:00)
[2017-05-15] MEDS ORDERED: DIPHENHYDRAMINE 50 MG INJ IV PRN (14:30)
[2017-05-15] MEDS: FAT EMULSION 20% 250 ML IV SCH (14:46)
[2017-05-15] MEDS: PRIMIDONE 50 MG TAB PO SCH ×2 (15:59→20:27)
[2017-05-15 19:30] VITALS: BP 93/51; RESP 20
[2017-05-15] MEDS: ATORVASTATIN 20 MG TAB PO SCH (20:27)
[2017-05-16 02:00] VITALS: BP 128/64; PULSE 71; RESP 18
[2017-05-16] MEDS: PANTOPRAZOLE (EC) 40 MG TAB PO SCH ×2 (06:00→06:33)
[2017-05-16 06:23] VITALS: BP 128/64; RESP 19
[2017-05-16 07:47] VITALS: BP 114/62; RESP 16
--- NOTE | 2017-05-16 08:11 | CONS ---
Date/Time of Note Date/Time of Note DATE: 05/16/17 TIME: 08:07 Consult Date/Type/Reason Admit Date/Time Apr 23, 2017 at 20:40 Initial Consult Date 04/28/17 Type of Consultation: cv Ordering Provider: SHARON GIRALDO MD Subjective Pt did well overnight. Tolerating clear liquid diet. Passing gas. No abdominal pain today. Feels better. Objective Vital Signs Date Time Temp Pulse Resp B/P Pulse Ox O2 Delivery O2 Flow Rate FiO2 05/16/17 07:47 98.7 93 16 114/62 98 Intake and Output 05/15/17 05/15/17 05/16/17 15:00 23:00 07:00 Intake Total 100 ml 993 ml 340 ml Output Total 7305 ml 1005 ml 1000 ml Balance -7205 ml -12 ml -660 ml Exam NAD/A&Ox4 OP clear NCAT/PERRLA/EOMI B/Anicteric B CTA B RRR no m/g/r Abd: distended-maurizio in place, c/d/i +BS [place] neck deformities seen in the hands/ulnar deviation no c/c/e Results/Medications Result Diagram: 05/15/17 0743 05/15/17 0743 Results 24 hrs Laboratory Tests Test 05/15/17 09:14 05/15/17 21:05 Bedside Glucose 129 114 Medications Current Medications Ondansetron HCl (Zofran Inj) 4 mg Q6H PRN IV NAUSEA AND/OR VOMITING Last administered on 05/06/17 01:09; Admin Dose 4 MG; Start 04/23/17 at 22:30 Lorazepam (Ativan) 2 mg Q10MIN PRN IV seizure; Start 04/24/17 at 11:00 Methylprednisolone Sodium Succinate (Solu-Medrol) 20 mg DAILY IV Last administered on 05/15/17 09:19; Admin Dose 20 MG; Start 04/24/17 at 11:30 Folic Acid (Folic Acid) 1 mg DAILY PO Last administered on 05/15/17 09:15; Admin Dose 1 MG; Start 04/24/17 at 14:30 Multivitamins Therapeutic (Theragran) 1 tab DAILY PO Last administered on 09:14; Admin Dose 1 TAB; Start 04/24/17 at 14:30 Primidone (Mysoline) 250 mg TID PO Last administered on 05/15/17 09:14; Admin Dose 250 MG; Start 04/24/17 at 15:00; Status Future Hold Sulfasalazine (Azulfidine) 500 mg QID PO Last administered on 05/15/17 20:27; Admin Dose 500 MG; Start 04/24/17 at 17:00 Atorvastatin Calcium (Lipitor) 20 mg DAILY@21 PO Last administered on 20:27; Admin Dose 20 MG; Start 04/24/17 at 21:00 Non-Formulary Medication 1 DOSE = 20 mcg/ 0.08ml DAILY SC Last administered on 05/15/17 09:20; Admin Dose 1 EA; Start 04/25/17 at 09:00 Levetiracetam (Keppra 500 Mg/ 100ml (Pmx)) 100 ml @ 400 mls/hr Q12 IVPB Last administered on 05/15/17 20:27; Admin Dose 400 MLS/HR; Start 04/30/17 at 21:00 Hydromorphone HCl (Dilaudid) 0.5 mg Q2H PRN IV PAIN LEVEL 1-5 Last administered on 05/15/17 09:26; Admin Dose 0.5 MG; Start 05/05/17 at 23:30 Pantoprazole (Protonix Tab) 40 mg DAILY@06 PO Last administered on 05/16/17 06 :33; Admin Dose 40 MG; Start 05/06/17 at 06:00 Hydromorphone HCl (Dilaudid) 1 mg Q2 PRN IV pain 6-10 Last administered on 05/15 20:59; Admin Dose 1 MG; Start 05/05/17 at 23:30 Tramadol HCl 50 mg 50 mg Q6H PRN PO PAIN LEVEL 4-7; Start 05/06/17 at 01:00 Total Parenteral Nutrition 1,000 ml @ 40 mls/hr Q24H IV Last administered on 19:49; Admin Dose 40 MLS/HR; Start 05/10/17 at 14:00 Fat Emulsion Intravenous (Liposyn Ii 20%) 250 ml @ 31 mls/hr Q24H IV Last administered on 05/15/17 14:46; Admin Dose 31 MLS/HR; Start 8/20/17 at 14:00 Enoxaparin Sodium (Lovenox) 40 mg DAILY SC Last administered on 05/15/17 09:34 ; Admin Dose 40 MG; Start 05/10/17 at 17:30 Hydrocortisone (Hydrocortisone 0.5% Cr) 1 applic BID PRN TOP ITCHING Last administered on 05/14/17 01:49; Admin Dose 1 APPLIC; Start 05/12/17 at 02:30 Diagnostic Test (Pha) (Accu-Chek) 1 ea Q12 XX Last administered on 05/15/17 09 :20; Admin Dose 1 EA; Start 05/13/17 at 09:00 Diphenhydramine HCl (Benadryl) 25 mg Q6H PRN IV PRURITUS; Start 05/15/17 at 14: 30 Primidone (Mysoline) 250 mg TID PO Last administered on 05/15/17 20:27; Admin Dose 250 MG; Start 05/15/17 at 15:00 Assessment/Plan Problems: (1) Diarrhea (2) Urinary tract infection (3) Complicated UTI (urinary tract infection) (4) Colonic diverticular abscess Additional Assessment/Plan Pt with recurrent urachal adenocarcinoma. S/p resection of tumor. Bowel beginning to recover. On TPN but tolerating liquid diet. -Cont supportive care and consider starting post-op chemo shortly -Cont DVT ppx -Monitor blood counts TEDDY COURTNEY May 16, 2017 08:11
[2017-05-16] MEDS: ACCU-CHEK XX SCH ×2 (08:53→20:58)
[2017-05-16] MEDS: SULFASALAZINE 500 MG TAB PO SCH ×4 (08:56→20:51)
[2017-05-16] MEDS: METHYLPREDNISOLONE 40 MG INJ IV SCH (08:56)
[2017-05-16] MEDS: MULTIVITAMINS THERAPEUTIC TAB PO SCH (08:56)
[2017-05-16] MEDS: ENOXAPARIN 40 MG/0.4 ML SYG SC SCH (09:03)
[2017-05-16] MEDS: PRIMIDONE 50 MG TAB PO SCH ×3 (09:07→20:51)
[2017-05-16] MEDS: LEVETIRACETAM 500 MG (PMX) 100 ML IVPB SCH ×2 (09:08→21:00)
[2017-05-16] MEDS: FOLIC ACID 1 MG TAB PO SCH (09:08)
[2017-05-16] MEDS: TERIPARATIDE 600 MCG/2.4 ML SC SCH (09:09)
[2017-05-16] MEDS: HYDROmorphONE 1 MG/ML SYG IV PRN ×3 (10:34→20:52)
[2017-05-16 10:42] LABS: BASOPHILS % 0.5 % (0.0-2.0); EOSINOPHILS # 0.2 10^3/ul (0.0-0.5); EOSINOPHILS % 5.4 % (0.0-7.0); HEMATOCRIT 31.4 % (37.0-47.0); HEMOGLOBIN 9.4 g/dl (12.0-16.0); LYMPHOCYTES # 0.8 10^3/ul (0.8-2.9); LYMPHOCYTES % 19.4 % (15.0-51.0); MEAN CORPUSCULAR HEMOGLOBIN 28.1 pg (29.0-33.0); MEAN CORPUSCULAR HGB CONC 29.9 g/dl (32.0-37.0); MEAN PLATELET VOLUME 10.4 fl (7.4-10.4); MONOCYTE # 0.4 10^3/ul (0.3-0.9); MONOCYTES % 8.3 % (0.0-11.0); NEUTROPHILS % 65.9 % (39.0-77.0); PLATELET COUNT 319 10^3/UL (140-415); RED BLOOD COUNT 3.34 10^6/ul (4.20-5.40); RED CELL DISTRIBUTION WIDTH 14.8 % (11.5-14.5); WHITE BLOOD COUNT 4.2 10^3/ul (4.8-10.8)
[2017-05-16 10:56] LABS: MAGNESIUM 1.8 mg/dl (1.7-2.5); PHOSPHORUS 3.4 mg/dl (2.5-4.9)
[2017-05-16 11:05] LABS: CALCIUM 9.1 mg/dl (8.4-10.2); CREATININE 0.35 mg/dl (0.44-1.00); POTASSIUM 4.8 mmol/L (3.5-5.1)
--- NOTE | 2017-05-16 12:06 | PN ---
Date/Time of Note Date/Time of Note DATE: 05/16/17 TIME: 12:00 Assessment/Plan Lines/Catheters IV Catheter Type (from [facility]): PICC Line Stubbs in Place (from [facility]): Yes Assessment/Plan Chief Complaint/Hosp Course 1. 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 11 x 9 cm, Partial cystectomy & bilateral ureteral stent placement; Path: Urachal cancer, intra-abdominal:Mucinous adenocarcinoma (path similar to previous bladder tumor); alexa with serosanguineous drainage; +bm, +flatus; tolerated clear liquids -onc f/u; tx -pain management -full liquids today/ then increase diet slowly and taper off tpn -OOB, increase ambulation -IS 2. Leukocytosis: reactive +/- infective; now leukopenia -monitor -supportive 3.Episode of hypotension w tachycardia:currently BP stable -supportive -careful monitoring 4. Normocytic anemia: no acute bleed noted -monitor -transfuse as needed 5. History of urachal ca, recurrent; poss chemo -as above -per onc 6. UTI: multiorganism pathogens -abx per sensitivity 7. Hypoalbuminemia: likely nutritional -nutrition optimization as able, on tpn 8. Right neck pruritus: poss dressing or antimicrobial cleanser related Patient seen and examined in collaboration with Dr. Jonatan De Los Santos. Thank you. Problems: Subjective 24 Hr Interval Summary Feels well. +bowel movement (dark brown liquid) +gas. Ambulating, No drainage from incision site. No abdominal pain. ALEXA draining serosanguineous drainage. No fevers, chills, sob, cough, cp, palpitations, n/v/d/d/ysuria. Tolerating clear liquid diet. Exam/Review of Systems Vital Signs Vitals Vital Signs Date Time Temp Pulse Resp B/P Pulse Ox O2 Delivery O2 Flow Rate FiO2 05/16/17 07:47 98.7 93 16 114/62 98 Intake and Output 8/25/17 8/25/17 8/26/17 15:00 23:00 07:00 Intake Total 100 ml 993 ml 340 ml Output Total 7305 ml 1005 ml 1000 ml Balance -7205 ml -12 ml -660 ml Exam Free Text/Dictation Constitutional: alert, oriented, pleasant Psych: anxiety, no complaints Head: atraumatic, normocephalic Eyes: nl lids, nl sclera ENMT: mucosa pink and moist, nl nasal mucosa & septum, redness right neck skin under tegaderm; unchanged Neck: non-tender, supple; central line, Respiratory: clear to auscultation, normal air movement Cardiovascular: regular rate and rhythm, No edema Gastrointestinal: soft, min tender, surgical incision with maurizio, no periwound erythema/drainage, alexa with serosanguineous drainage : no dysuria, Musculoskeletal: nl extremities to inspection Extremities: normal pulses, No edema 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: nl mental status, nl speech, nl strength Lymph: No nl lymph nodes Results Result Diagram: 05/16/17 0955 05/16/17 0955 JENIFER CABAN NP May 16, 2017 12:06
[2017-05-16] MEDS: TPN 1,000 ML IV SCH ×2 (14:00→23:44)
[2017-05-16] MEDS: FAT EMULSION 20% 250 ML IV SCH (14:44)
[2017-05-16 14:48] VITALS: BP 103/58; RESP 20
--- NOTE | 2017-05-16 16:26 | PN ---
Date/Time of Note Date/Time of Note DATE: 05/16/17 TIME: 16:24 Assessment/Plan VTE Prophylaxis VTE Prophylaxis Intervention: SCD's Lines/Catheters IV [facility]atheter Type (from [email or web address] Central Line Urinary Cath still in place: Yes Assessment/Plan Assessment/Plan 1. 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 Status post transurethral resection of bladder tumors on 04/29/2017 followed by cystoscopy and insertion of bilateral ureteral catheters along with partial cystectomy on 05/05/2017. S/P exploratory laparotomy with extensive lysis of adhesions; repair of colotomy; implantation of biologic over the colon repair and bladder repair; excision of pelvic cystic lesion; and excision of previous scar and excessive abdominal skin and fat on 05/05/2017. 2. UTI. S/p antimicrobials as per ID. 3. Seizure disorder. Continue anticonvulsants. 4. Rheumatoid arthritis. Continue current care. 5. Sjogren's syndrome. Continue current care. 6. History of brain tumor. Status post resection. 7. Normocytic, normochromic anemia. Most probably anemia chronic disease. Monitor H&H closely. Subjective 24 Hr Interval Summary Free Text/Dictation Patient feeling well. Denied pain Exam/Review of Systems Vital Signs Vitals Vital Signs Date Time Temp Pulse Resp B/P Pulse Ox O2 Delivery O2 Flow Rate FiO2 05/16/17 14:48 98.4 96 20 103/58 96 Intake and Output 05/15/17 05/15/17 05/16/17 15:00 23:00 07:00 Intake Total 100 ml 993 ml 340 ml Output Total 7305 ml 1005 ml 1000 ml Balance -7205 ml -12 ml -660 ml Exam Constitutional: alert, oriented, well developed Head: atraumatic, normocephalic Respiratory: clear to auscultation, normal air movement Cardiovascular: nl pulses, regular rate and rhythm Gastrointestinal: other (Abdominal binders in place), soft Extremities: other (Hand deformity noted) Results Result Diagram: 05/16/17 0955 05/16/17 0955 Results 24 hrs Laboratory Tests Test 05/15/17 21:05 05/16/17 08:52 05/16/17 09:55 Bedside Glucose 114 173 White Blood Count 4.2 L Red Blood Count 3.34 L Hemoglobin 9.4 L Hematocrit 31.4 L Mean Corpuscular Volume 94.0 Mean Corpuscular Hemoglobin 28.1 L Mean Corpuscular Hemoglobin Concent 29.9 L Red Cell Distribution Width 14.8 H Platelet Count 319 Mean Platelet Volume 10.4 Neutrophils % 65.9 Lymphocytes % 19.4 Monocytes % 8.3 Eosinophils % 5.4 Basophils % 0.5 Nucleated Red Blood Cells % 0.0 Neutrophils # (Manual) 2.8 Lymphocytes # 0.8 Monocytes # 0.4 Eosinophils # 0.2 Basophils # 0.0 Nucleated Red Blood Cells # 0.0 Sodium Level 146 H Potassium Level 4.8 Chloride Level 107 Carbon Dioxide Level 25 Anion Gap 19 H Blood Urea Nitrogen 10 Creatinine 0.35 L Glucose Level 149 Calcium Level 9.1 Phosphorus Level 3.4 Magnesium Level 1.8 Medications Medications Current Medications Ondansetron HCl (Zofran Inj) 4 mg Q6H PRN IV NAUSEA AND/OR VOMITING Last administered on 05/06/17 01:09; Admin Dose 4 MG; Start 04/23/17 at 22:30 Lorazepam (Ativan) 2 mg Q10MIN PRN IV seizure; Start 04/24/17 at 11:00 Methylprednisolone Sodium Succinate (Solu-Medrol) 20 mg DAILY IV Last administered on 05/16/17 08:56; Admin Dose 20 MG; Start 04/24/17 at 11:30 Folic Acid (Folic Acid) 1 mg DAILY PO Last administered on 05/16/17 09:08; Admin Dose 1 MG; Start 04/24/17 at 14:30 Multivitamins Therapeutic (Theragran) 1 tab DAILY PO Last administered on 08:56; Admin Dose 1 TAB; Start 04/24/17 at 14:30 Primidone (Mysoline) 250 mg TID PO Last administered on 05/15/17 09:14; Admin Dose 250 MG; Start 04/24/17 at 15:00; Status Future Hold Sulfasalazine (Azulfidine) 500 mg QID PO Last administered on 05/16/17 12:35; Admin Dose 500 MG; Start 04/24/17 at 17:00 Atorvastatin Calcium (Lipitor) 20 mg DAILY@21 PO Last administered on 20:27; Admin Dose 20 MG; Start 04/24/17 at 21:00 Non-Formulary Medication 1 DOSE = 20 mcg/ 0.08ml DAILY SC Last administered on 05/16/17 09:09; Admin Dose 1 EA; Start 04/25/17 at 09:00 Levetiracetam (Keppra 500 Mg/ 100ml (Pmx)) 100 ml @ 400 mls/hr Q12 IVPB Last administered on 05/16/17 09:08; Admin Dose 400 MLS/HR; Start 04/30/17 at 21:00 Hydromorphone HCl (Dilaudid) 0.5 mg Q2H PRN IV PAIN LEVEL 1-5 Last administered on 05/15/17 09:26; Admin Dose 0.5 MG; Start 05/05/17 at 23:30 Pantoprazole (Protonix Tab) 40 mg DAILY@06 PO Last administered on 05/16/17 06 :33; Admin Dose 40 MG; Start 05/06/17 at 06:00 Hydromorphone HCl (Dilaudid) 1 mg Q2 PRN IV pain 6-10 Last administered on 05/16 15:43; Admin Dose 1 MG; Start 05/05/17 at 23:30 Tramadol HCl 50 mg 50 mg Q6H PRN PO PAIN LEVEL 4-7; Start 05/06/17 at 01:00 Total Parenteral Nutrition 1,000 ml @ 40 mls/hr Q24H IV Last administered on 19:49; Admin Dose 40 MLS/HR; Start 05/10/17 at 14:00 Fat Emulsion Intravenous (Liposyn Ii 20%) 250 ml @ 31 mls/hr Q24H IV Last administered on 05/16/17 14:44; Admin Dose 31 MLS/HR; Start 05/10/17 at 14:00 Enoxaparin Sodium (Lovenox) 40 mg DAILY SC Last administered on 05/16/17 09:03 ; Admin Dose 40 MG; Start 05/10/17 at 17:30 Hydrocortisone (Hydrocortisone 0.5% Cr) 1 applic BID PRN TOP ITCHING Last administered on 05/14/17 01:49; Admin Dose 1 APPLIC; Start 05/12/17 at 02:30 Diagnostic Test (Pha) (Accu-Chek) 1 ea Q12 XX Last administered on 05/16/17 08 :53; Admin Dose 1 EA; Start 05/13/17 at 09:00 Diphenhydramine HCl (Benadryl) 25 mg Q6H PRN IV PRURITUS; Start 05/15/17 at 14: 30 Primidone (Mysoline) 250 mg TID PO Last administered on 05/16/17t 12:35; Admin Dose 250 MG; Start 05/15/17 at 15:00 SHARON GIRALDO MD May 16, 2017 16:26
[2017-05-16 20:05] VITALS: BP 107/65; RESP 20
[2017-05-16] MEDS: ATORVASTATIN 20 MG TAB PO SCH (20:51)
[2017-05-17 02:25] VITALS: BP 93/54; RESP 18
[2017-05-17] MEDS: PANTOPRAZOLE (EC) 40 MG TAB PO SCH (06:41)
[2017-05-17 07:55] VITALS: BP 117/55; RESP 18
[2017-05-17 08:20] LABS: BASOPHILS % 0.3 % (0.0-2.0); EOSINOPHILS # 0.2 10^3/ul (0.0-0.5); EOSINOPHILS % 5.3 % (0.0-7.0); HEMATOCRIT 26.5 % (37.0-47.0); HEMOGLOBIN 8.2 g/dl (12.0-16.0); LYMPHOCYTES % 25.6 % (15.0-51.0); MEAN CORPUSCULAR HEMOGLOBIN 28.6 pg (29.0-33.0); MEAN CORPUSCULAR HGB CONC 30.9 g/dl (32.0-37.0); MEAN CORPUSCULAR VOLUME 92.3 fl (82.0-101.0); MEAN PLATELET VOLUME 10.2 fl (7.4-10.4); MONOCYTE # 0.5 10^3/ul (0.3-0.9); MONOCYTES % 13.3 % (0.0-11.0); NEUTROPHILS % 55.2 % (39.0-77.0); PLATELET COUNT 275 10^3/UL (140-415); RED BLOOD COUNT 2.87 10^6/ul (4.20-5.40); RED CELL DISTRIBUTION WIDTH 14.5 % (11.5-14.5)
[2017-05-17] MEDS: LEVETIRACETAM 500 MG (PMX) 100 ML IVPB SCH ×2 (08:38→20:42)
[2017-05-17] MEDS: SULFASALAZINE 500 MG TAB PO SCH ×4 (08:38→20:43)
[2017-05-17] MEDS: MULTIVITAMINS THERAPEUTIC TAB PO SCH (08:38)
[2017-05-17] MEDS: ACCU-CHEK XX SCH ×2 (08:39→20:43)
[2017-05-17] MEDS: FOLIC ACID 1 MG TAB PO SCH (08:39)
[2017-05-17] MEDS: METHYLPREDNISOLONE 40 MG INJ IV SCH (08:39)
[2017-05-17] MEDS: PRIMIDONE 50 MG TAB PO SCH ×3 (08:39→20:43)
[2017-05-17] MEDS: ENOXAPARIN 40 MG/0.4 ML SYG SC SCH (08:40)
[2017-05-17 08:49] LABS: ALBUMIN 2.8 g/dl (3.3-4.9); ALBUMIN/GLOBULIN RATIO 0.87; CALCIUM 8.7 mg/dl (8.4-10.2); CREATININE 0.36 mg/dl (0.44-1.00); POTASSIUM 4.3 mmol/L (3.5-5.1)
[2017-05-17] MEDS: TERIPARATIDE 600 MCG/2.4 ML SC SCH (08:59)
--- NOTE | 2017-05-17 09:30 | PN ---
Date/Time of Note Date/Time of Note DATE: 05/17/17 TIME: 09:28 Assessment/Plan VTE Prophylaxis VTE Prophylaxis Intervention: SCD's Lines/Catheters IV Catheter Type (from Nrs): Central Line Central line still needed: Yes Urinary Cath still in place: Yes Reason Cath still needed: other (indicate) Assessment/Plan Chief Complaint/Hosp Course 1. 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 Status post transurethral resection of bladder tumors on 04/29/2017 followed by cystoscopy and insertion of bilateral ureteral catheters along with partial cystectomy on 05/05/2017. S/P exploratory laparotomy with extensive lysis of adhesions; repair of colotomy; implantation of biologic over the colon repair and bladder repair; excision of pelvic cystic lesion; and excision of previous scar and excessive abdominal skin and fat on 05/05/2017. 2. UTI. S/p antimicrobials as per ID. 3. Seizure disorder. Continue anticonvulsants. 4. Rheumatoid arthritis. Continue current care. 5. Sjogren's syndrome. Continue current care. 6. History of brain tumor. Status post resection. 7. Normocytic, normochromic anemia. Most probably anemia chronic disease. Monitor H&H closely. 8. Fluids, electrolytes, and nutrition. TPN. Full liquids. 9. DVT prophylaxis. Bilateral sequential compression devices. 10. Plan. Postoperative management as per Urology and Surgery. The patient needs placement. The patient can be discharged to a SNF once cleared by surgery. Case discussed with Dr. Villareal. Problems: Subjective 24 Hr Interval Summary Free Text/Dictation Had a liquid BM today. Exam/Review of Systems Vital Signs Vitals Vital Signs Date Time Temp Pulse Resp B/P Pulse Ox O2 Delivery O2 Flow Rate FiO2 05/17/17 07:55 98.4 90 18 117/55 95 Intake and Output 05/16/17 05/16/17 05/17/17 15:00 23:00 07:00 Intake Total 100 ml 350 ml 200 ml Output Total 5 ml 5 ml 5 ml Balance 95 ml 345 ml 195 ml Exam General: Adequately build 56 year-old male lying in bed in no apparent distress. HEENT: Normocephalic, atraumatic. Eyes: Anicteric sclerae, conjunctivae clear. ENT: Nasal septum midline, oral mucosa moist. Neck supple, no JVD noticed. Respiratory: Bilaterally clear breath sounds. No use of accessory muscles of respiration. No adventitious breath sounds. Cardiovascular: S1, S2 heard. No murmurs or gallops. Abdomen: Abdominal binder. UCHE drain draining sanguinous secretions. Genitourinary: Deferred. Extremities: No cyanosis, no clubbing, no edema. Peripheral pulses palpable. Chronic deformities of bilateral metacarpal joints. Neurologic: Cranial nerves II through XII grossly intact. The patient is awake, alert, and oriented. Skin: Normal skin turgor. No skin rashes. Results Result Diagram: 05/17/17 0741 05/17/17 0741 Results 24 hrs Laboratory Tests Test 05/16/17 09:55 05/16/17 20:58 05/17/17 07:41 05/17/17 08:37 White Blood Count 4.2 L 4.0 L Red Blood Count 3.34 L 2.87 L Hemoglobin 9.4 L 8.2 L Hematocrit 31.4 L 26.5 L Mean Corpuscular Volume 94.0 92.3 Mean Corpuscular Hemoglobin 28.1 L 28.6 L Mean Corpuscular Hemoglobin Concent 29.9 L 30.9 L Red Cell Distribution Width 14.8 H 14.5 Platelet Count 319 275 Mean Platelet Volume 10.4 10.2 Neutrophils % 65.9 55.2 Lymphocytes % 19.4 25.6 Monocytes % 8.3 13.3 H Eosinophils % 5.4 5.3 Basophils % 0.5 0.3 Nucleated Red Blood Cells % 0.0 0.0 Neutrophils # (Manual) 2.8 2.2 Lymphocytes # 0.8 1.0 Monocytes # 0.4 0.5 Eosinophils # 0.2 0.2 Basophils # 0.0 0.0 Nucleated Red Blood Cells # 0.0 0.0 Sodium Level 146 H 144 Potassium Level 4.8 4.3 Chloride Level 107 106 Carbon Dioxide Level 25 29 Anion Gap 19 H 13 Blood Urea Nitrogen 10 9 Creatinine 0.35 L 0.36 L Glucose Level 149 119 Calcium Level 9.1 8.7 Phosphorus Level 3.4 Magnesium Level 1.8 Bedside Glucose 117 123 Total Bilirubin Direct Bilirubin Indirect Bilirubin Aspartate Amino Transf (AST/SGOT) 40 Alanine Aminotransferase (ALT/SGPT) 35 Alkaline Phosphatase 110 Total Protein 6.0 L Albumin 2.8 L Globulin 3.20 Albumin/Globulin Ratio 0.87 Prealbumin 15.3 L Test 05/17/17 08:39 Lab Scanned Report REFERENCE LAB Medications Medications Current Medications Ondansetron HCl (Zofran Inj) 4 mg Q6H PRN IV NAUSEA AND/OR VOMITING Last administered on 05/06/17 01:09; Admin Dose 4 MG; Start 04/23/17 at 22:30 Lorazepam (Ativan) 2 mg Q10MIN PRN IV seizure; Start 04/24/17 at 11:00 Methylprednisolone Sodium Succinate (Solu-Medrol) 20 mg DAILY IV Last administered on 05/17/17 08:39; Admin Dose 20 MG; Start 04/24/17 at 11:30 Folic Acid (Folic Acid) 1 mg DAILY PO Last administered on 05/17/17 08:39; Admin Dose 1 MG; Start 04/24/17 at 14:30 Multivitamins Therapeutic (Theragran) 1 tab DAILY PO Last administered on 08:38; Admin Dose 1 TAB; Start 04/24/17 at 14:30 Primidone (Mysoline) 250 mg TID PO Last administered on 05/15/17 09:14; Admin Dose 250 MG; Start 04/24/17 at 15:00; Status Future Hold Sulfasalazine (Azulfidine) 500 mg QID PO Last administered on 05/17/17 08:38; Admin Dose 500 MG; Start 04/24/17 at 17:00 Atorvastatin Calcium (Lipitor) 20 mg DAILY@21 PO Last administered on 20:51; Admin Dose 20 MG; Start 04/24/17 at 21:00 Non-Formulary Medication 1 DOSE = 20 mcg/ 0.08ml DAILY SC Last administered on 05/17/17 08:59; Admin Dose 1 EA; Start 04/25/17 at 09:00 Levetiracetam (Keppra 500 Mg/ 100ml (Pmx)) 100 ml @ 400 mls/hr Q12 IVPB Last administered on 05/17/17 08:38; Admin Dose 400 MLS/HR; Start 04/30/17 at 21:00 Hydromorphone HCl (Dilaudid) 0.5 mg Q2H PRN IV PAIN LEVEL 1-5 Last administered on 05/15/17 09:26; Admin Dose 0.5 MG; Start 05/05/17 at 23:30 Pantoprazole (Protonix Tab) 40 mg DAILY@06 PO Last administered on 05/17/17 06 :41; Admin Dose 40 MG; Start 05/06/17 at 06:00 Hydromorphone HCl (Dilaudid) 1 mg Q2 PRN IV pain 6-10 Last administered on 05/16 20:52; Admin Dose 1 MG; Start 05/05/17 at 23:30 Tramadol HCl 50 mg 50 mg Q6H PRN PO PAIN LEVEL 4-7 Last administered on 23:44; Admin Dose 50 MG; Start 05/06/17 at 01:00 Total Parenteral Nutrition 1,000 ml @ 40 mls/hr Q24H IV Last administered on 23:44; Admin Dose 40 MLS/HR; Start 05/10/17 at 14:00 Fat Emulsion Intravenous (Liposyn Ii 20%) 250 ml @ 31 mls/hr Q24H IV Last administered on 05/16/17 14:44; Admin Dose 31 MLS/HR; Start 05/10/17 at 14:00 Enoxaparin Sodium (Lovenox) 40 mg DAILY SC Last administered on 05/17/17 08:40 ; Admin Dose 40 MG; Start 05/10/17 at 17:30 Hydrocortisone (Hydrocortisone 0.5% Cr) 1 applic BID PRN TOP ITCHING Last administered on 05/14/17 01:49; Admin Dose 1 APPLIC; Start 05/12/17 at 02:30 Diagnostic Test (Pha) (Accu-Chek) 1 ea Q12 XX Last administered on 05/16/17 20 :58; Admin Dose 1 EA; Start 05/13/17 at 09:00 Diphenhydramine HCl (Benadryl) 25 mg Q6H PRN IV PRURITUS; Start 05/15/17 at 14: 30 Primidone (Mysoline) 250 mg TID PO Last administered on 05/17/17 08:39; Admin Dose 250 MG; Start 05/15/17 at 15:00 LATASHA RICHARDSON NP May 17, 2017 09:30
[2017-05-17] MEDS: HYDROmorphONE 1 MG/ML SYG IV PRN ×4 (10:32→21:38)
--- NOTE | 2017-05-17 11:36 | CONS ---
Date/Time of Note Date/Time of Note DATE: 05/17/17 TIME: 11:33 Consult Date/Type/Reason Admit Date/Time Apr 23, 2017 at 20:40 Initial Consult Date 04/28/17 Type of Consultation: cv Ordering Provider: SHARON GIRALDO MD Subjective No new changes. Feeling a bit better. Less abdominal pain. Tolerating diet. Objective Vital Signs Date Time Temp Pulse Resp B/P Pulse Ox O2 Delivery O2 Flow Rate FiO2 05/17/17 07:55 98.4 90 18 117/55 95 Intake and Output 05/16/17 05/16/17 05/17/17 15:00 23:00 07:00 Intake Total 100 ml 350 ml 200 ml Output Total 5 ml 5 ml 5 ml Balance 95 ml 345 ml 195 ml Exam NAD/A&Ox4 OP dry Anicteric CTA B RRR no m/g/r Distended, +BS but hypoactive, wound: c/d/i no guarding or rebound, no TTP No c/c/e Results/Medications Result Diagram: 05/17/17 0741 05/17/17 0741 Results 24 hrs Laboratory Tests Test 05/16/17 20:58 05/17/17 07:41 05/17/17 08:37 05/17/17 08:39 Bedside Glucose 117 123 White Blood Count 4.0 L Red Blood Count 2.87 L Hemoglobin 8.2 L Hematocrit 26.5 L Mean Corpuscular Volume 92.3 Mean Corpuscular Hemoglobin 28.6 L Mean Corpuscular Hemoglobin Concent 30.9 L Red Cell Distribution Width 14.5 Platelet Count 275 Mean Platelet Volume 10.2 Neutrophils % 55.2 Lymphocytes % 25.6 Monocytes % 13.3 H Eosinophils % 5.3 Basophils % 0.3 Nucleated Red Blood Cells % 0.0 Neutrophils # (Manual) 2.2 Lymphocytes # 1.0 Monocytes # 0.5 Eosinophils # 0.2 Basophils # 0.0 Nucleated Red Blood Cells # 0.0 Sodium Level 144 Potassium Level 4.3 Chloride Level 106 Carbon Dioxide Level 29 Anion Gap 13 Blood Urea Nitrogen 9 Creatinine 0.36 L Glucose Level 119 Calcium Level 8.7 Total Bilirubin Direct Bilirubin Indirect Bilirubin Aspartate Amino Transf (AST/SGOT) 40 Alanine Aminotransferase (ALT/SGPT) 35 Alkaline Phosphatase 110 Total Protein 6.0 L Albumin 2.8 L Globulin 3.20 Albumin/Globulin Ratio 0.87 Prealbumin 15.3 L Lab Scanned Report REFERENCE LAB Medications Current Medications Ondansetron HCl (Zofran Inj) 4 mg Q6H PRN IV NAUSEA AND/OR VOMITING Last administered on 05/06/17 01:09; Admin Dose 4 MG; Start 04/23/17 at 22:30 Lorazepam (Ativan) 2 mg Q10MIN PRN IV seizure; Start 04/24/17 at 11:00 Methylprednisolone Sodium Succinate (Solu-Medrol) 20 mg DAILY IV Last administered on 05/17/17 08:39; Admin Dose 20 MG; Start 04/24/17 at 11:30 Folic Acid (Folic Acid) 1 mg DAILY PO Last administered on 05/17/17 08:39; Admin Dose 1 MG; Start 04/24/17 at 14:30 Multivitamins Therapeutic (Theragran) 1 tab DAILY PO Last administered on 08:38; Admin Dose 1 TAB; Start 04/24/17 at 14:30 Primidone (Mysoline) 250 mg TID PO Last administered on 05/15/17 09:14; Admin Dose 250 MG; Start 04/24/17 at 15:00; Status Future Hold Sulfasalazine (Azulfidine) 500 mg QID PO Last administered on 05/17/17 08:38; Admin Dose 500 MG; Start 04/24/17 at 17:00 Atorvastatin Calcium (Lipitor) 20 mg DAILY@21 PO Last administered on 20:51; Admin Dose 20 MG; Start 04/24/17 at 21:00 Non-Formulary Medication 1 DOSE = 20 mcg/ 0.08ml DAILY SC Last administered on 05/17/17 08:59; Admin Dose 1 EA; Start 04/25/17 at 09:00 Levetiracetam (Keppra 500 Mg/ 100ml (Pmx)) 100 ml @ 400 mls/hr Q12 IVPB Last administered on 05/17/17 08:38; Admin Dose 400 MLS/HR; Start 04/30/17 at 21:00 Hydromorphone HCl (Dilaudid) 0.5 mg Q2H PRN IV PAIN LEVEL 1-5 Last administered on 05/15/17 09:26; Admin Dose 0.5 MG; Start 05/05/17 at 23:30 Pantoprazole (Protonix Tab) 40 mg DAILY@06 PO Last administered on 05/17/17 06 :41; Admin Dose 40 MG; Start 05/06/17 at 06:00 Hydromorphone HCl (Dilaudid) 1 mg Q2 PRN IV pain 6-10 Last administered on 05/17 10:32; Admin Dose 1 MG; Start 05/05/17 at 23:30 Tramadol HCl 50 mg 50 mg Q6H PRN PO PAIN LEVEL 4-7 Last administered on 23:44; Admin Dose 50 MG; Start 05/06/17 at 01:00 Total Parenteral Nutrition 1,000 ml @ 40 mls/hr Q24H IV Last administered on 23:44; Admin Dose 40 MLS/HR; Start 05/10/17 at 14:00 Fat Emulsion Intravenous (Liposyn Ii 20%) 250 ml @ 31 mls/hr Q24H IV Last administered on 05/16/17 14:44; Admin Dose 31 MLS/HR; Start 05/10/17 at 14:00 Enoxaparin Sodium (Lovenox) 40 mg DAILY SC Last administered on 05/17/17 08:40 ; Admin Dose 40 MG; Start 05/10/17 at 17:30 Hydrocortisone (Hydrocortisone 0.5% Cr) 1 applic BID PRN TOP ITCHING Last administered on 05/14/17 01:49; Admin Dose 1 APPLIC; Start 05/12/17 at 02:30 Diagnostic Test (Pha) (Accu-Chek) 1 ea Q12 XX Last administered on 05/16/17 20 :58; Admin Dose 1 EA; Start 05/13/17 at 09:00 Diphenhydramine HCl (Benadryl) 25 mg Q6H PRN IV PRURITUS; Start 05/15/17 at 14: 30 Primidone (Mysoline) 250 mg TID PO Last administered on 05/17/17 08:39; Admin Dose 250 MG; Start 05/15/17 at 15:00 Assessment/Plan Problems: (1) Diarrhea (2) Urinary tract infection (3) Complicated UTI (urinary tract infection) (4) Colonic diverticular abscess Additional Assessment/Plan Cont current post-op management. Can consider post-op chemotherapy shortly. Advance diet as tolerated DVT PPX Monitor Hb LASHKARI,TEDDY May 17, 2017 11:36
--- NOTE | 2017-05-17 12:13 | PN ---
Date/Time of Note Date/Time of Note DATE: 05/17/17 TIME: 12:07 Assessment/Plan Lines/Catheters IV Catheter Type (from [facility]): Central Line Stubbs in Place (from [facility]): Yes Assessment/Plan Chief Complaint/Hosp Course 1. 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 11 x 9 cm, Partial cystectomy & bilateral ureteral stent placement; Path: Urachal cancer, intra-abdominal:Mucinous adenocarcinoma (path similar to previous bladder tumor); alexa with serosanguineous drainage; +bm, +flatus -onc f/u; tx -pain management -soft diet today if tolerating wean off tpn today -OOB, increase ambulation -IS 2. Leukocytosis: reactive +/- infective; now leukopenia -monitor -supportive 3.Episode of hypotension w tachycardia:currently BP stable -supportive -careful monitoring 4. Normocytic anemia: no acute bleed noted -monitor -transfuse as needed 5. History of urachal ca, recurrent; poss chemo -as above -per onc 6. UTI: multiorganism pathogens -abx per sensitivity 7. Hypoalbuminemia: likely nutritional -nutrition optimization as able, on tpn 8. Right neck pruritus: poss dressing or antimicrobial cleanser related Patient seen and examined in collaboration with Dr. Jonatan De Los Santos. Thank you. Problems: Subjective 24 Hr Interval Summary Feels well. Tolerated full liquid diet. Will advance diet today. + Bowel function, brown soft stool. No fevers, chills, sob, cough, n/v/d/dysuria. No abdominal pain. ALEXA with min serosanguineous drainage. Exam/Review of Systems Vital Signs Vitals Vital Signs Date Time Temp Pulse Resp B/P Pulse Ox O2 Delivery O2 Flow Rate FiO2 05/17/17 07:55 98.4 90 18 117/55 95 Intake and Output 05/16/17 05/16/17 05/17/17 15:00 23:00 07:00 Intake Total 100 ml 350 ml 200 ml Output Total 5 ml 5 ml 5 ml Balance 95 ml 345 ml 195 ml Exam Free Text/Dictation Constitutional: alert, oriented, pleasant Psych: anxiety, no complaints Head: atraumatic, normocephalic Eyes: nl lids, nl sclera ENMT: mucosa pink and moist, nl nasal mucosa & septum, redness right neck skin under tegaderm; unchanged Neck: non-tender, supple; central line, Respiratory: clear to auscultation, normal air movement Cardiovascular: regular rate and rhythm, No edema Gastrointestinal: soft, min tender, surgical incision with maurizio, no periwound erythema/drainage, alexa with min serosanguineous drainage : no dysuria, Musculoskeletal: nl extremities to inspection Extremities: normal pulses, No edema 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: nl mental status, nl speech, nl strength Lymph: No nl lymph nodes Results Result Diagram: 05/17/17 0741 05/17/17 0741 JENIFER CABAN NP May 17, 2017 12:13 JENIFER CABAN NP May 17, 2017 12:13
[2017-05-17] MEDS: FAT EMULSION 20% 250 ML IV SCH (12:56)
[2017-05-17 14:00] VITALS: BP 98/51; RESP 18
[2017-05-17 20:00] VITALS: BP 104/56; RESP 18
[2017-05-17] MEDS: ATORVASTATIN 20 MG TAB PO SCH (20:43)
[2017-05-18] MEDS: TPN 1,000 ML IV SCH (01:44)
[2017-05-18 02:00] VITALS: BP 94/55; RESP 18
[2017-05-18] MEDS: PANTOPRAZOLE (EC) 40 MG TAB PO SCH (06:12)
[2017-05-18 07:31] VITALS: BP 97/55; RESP 20
[2017-05-18] MEDS: MULTIVITAMINS THERAPEUTIC TAB PO SCH (08:56)
[2017-05-18] MEDS: PRIMIDONE 50 MG TAB PO SCH ×3 (08:56→20:16)
[2017-05-18] MEDS: FOLIC ACID 1 MG TAB PO SCH (08:56)
[2017-05-18] MEDS: SULFASALAZINE 500 MG TAB PO SCH ×4 (08:57→20:17)
[2017-05-18] MEDS: TERIPARATIDE 600 MCG/2.4 ML SC SCH (08:57)
[2017-05-18] MEDS: LEVETIRACETAM 500 MG (PMX) 100 ML IVPB SCH ×2 (08:57→20:18)
[2017-05-18] MEDS: METHYLPREDNISOLONE 40 MG INJ IV SCH (08:57)
[2017-05-18] MEDS: ACCU-CHEK XX SCH (09:00)
[2017-05-18] MEDS: ENOXAPARIN 40 MG/0.4 ML SYG SC SCH (09:10)
[2017-05-18] MEDS: HYDROmorphONE 1 MG/ML SYG IV PRN ×2 (09:13→14:49)
[2017-05-18 09:36] LABS: BASOPHILS % 0.4 % (0.0-2.0); EOSINOPHILS # 0.3 10^3/ul (0.0-0.5); EOSINOPHILS % 4.8 % (0.0-7.0); HEMATOCRIT 30.4 % (37.0-47.0); HEMOGLOBIN 9.3 g/dl (12.0-16.0); LYMPHOCYTES # 1.1 10^3/ul (0.8-2.9); MEAN CORPUSCULAR HEMOGLOBIN 27.9 pg (29.0-33.0); MEAN CORPUSCULAR HGB CONC 30.6 g/dl (32.0-37.0); MEAN CORPUSCULAR VOLUME 91.3 fl (82.0-101.0); MEAN PLATELET VOLUME 10.7 fl (7.4-10.4); MONOCYTE # 0.5 10^3/ul (0.3-0.9); MONOCYTES % 9.2 % (0.0-11.0); NEUTROPHILS % 64.2 % (39.0-77.0); PLATELET COUNT 347 10^3/UL (140-415); RED BLOOD COUNT 3.33 10^6/ul (4.20-5.40); RED CELL DISTRIBUTION WIDTH 14.6 % (11.5-14.5); WHITE BLOOD COUNT 5.2 10^3/ul (4.8-10.8)
--- NOTE | 2017-05-18 09:44 | PN ---
Date/Time of Note Date/Time of Note DATE: 05/18/17 TIME: 09:39 Assessment/Plan Lines/Catheters IV Catheter Type (from Nrs): Central Line Stubbs in Place (from Nrs): Yes Assessment/Plan Chief Complaint/Hosp Course 1. 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 11 x 9 cm, Partial cystectomy & bilateral ureteral stent placement; Path: Urachal cancer, intra-abdominal:Mucinous adenocarcinoma (path similar to previous bladder tumor); alexa with serosanguineous drainage; +bm, +flatus -onc f/u; tx -pain management: PO pain management -soft diet today with protein shakes: wean off tpn today -OOB, increase ambulation -IS -ALEXA dc'd -Patient may be discharged per medical team. To follow up with us in office in 1 -2 weeks. 2. Leukocytosis: reactive +/- infective; leukopenia -monitor -supportive 3.Episode of hypotension w tachycardia:currently BP stable -supportive -careful monitoring 4. Normocytic anemia: no acute bleed noted -monitor -transfuse as needed 5. History of urachal ca, recurrent; poss chemo -as above -per onc 6. UTI: multiorganism pathogens -abx per sensitivity 7. Hypoalbuminemia: likely nutritional -nutrition optimization as able 8. Right neck pruritus: poss dressing or antimicrobial cleanser related Patient seen and examined in collaboration with Dr. Jonatan De Los Santos. Thank you. Problems: Subjective 24 Hr Interval Summary Feeling well. Continues to have discomfort in abdomen, improved by medicine. Tolerated solid food yesterday. No fevers, chills, n/v/d/dysuria, cp, palpitations, sob, congested cough. + bowel function. Min ALEXA drainage-DC'd today Exam/Review of Systems Vital Signs Vitals Vital Signs Date Time Temp Pulse Resp B/P Pulse Ox O2 Delivery O2 Flow Rate FiO2 05/18/17 07:31 97.5 86 20 97/55 98 Intake and Output 05/17/17 05/17/1705/18/17 15:00 23:00 07:00 Intake Total 700 ml 870 ml 1110 ml Output Total 1000 ml 1000 ml 705 ml Balance -300 ml -130 ml 405 ml Exam Free Text/Dictation Constitutional: alert, oriented, pleasant Psych: anxiety, no complaints Head: atraumatic, normocephalic Eyes: nl lids, nl sclera ENMT: mucosa pink and moist, nl nasal mucosa & septum, redness right neck skin under tegaderm; unchanged Neck: non-tender, supple; central line, Respiratory: clear to auscultation, normal air movement Cardiovascular: regular rate and rhythm, No edema Gastrointestinal: soft, min tender, surgical incision with maurizio, no periwound erythema/drainage, alexa with min serosanguineous drainage, +bowel function : no dysuria, Musculoskeletal: nl extremities to inspection Extremities: normal pulses, No edema 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: nl mental status, nl speech, nl strength Lymph: No nl lymph nodes Results Result Diagram: 05/18/17 0858 05/18/17 0858 JENIFER CABAN NP May 18, 2017 09:44
[2017-05-18 10:00] LABS: MAGNESIUM 1.6 mg/dl (1.7-2.5); PHOSPHORUS 3.9 mg/dl (2.5-4.9)
[2017-05-18] MEDS ORDERED: HYDROCODONE/APAP (5/325) TAB PO PRN ×2 (10:00)
[2017-05-18 10:05] LABS: ALBUMIN 3.4 g/dl (3.3-4.9); CALCIUM 9.3 mg/dl (8.4-10.2); CREATININE 0.38 mg/dl (0.44-1.00); POTASSIUM 4.6 mmol/L (3.5-5.1); TOTAL PROTEIN 6.8 g/dl (6.1-8.1)
[2017-05-18] MEDS ORDERED: TRAM50TA2 PO (14:10)
--- NOTE | 2017-05-18 14:20 | PDOCDIS ---
Discharge Instructions DIAGNOSIS Discharge Diagnosis 1. 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 2. UTI. 3. Seizure disorder. 4. Rheumatoid arthritis. 5. Sjogren's syndrome. 6. History of brain tumor. 7. Normocytic, normochromic anemia. Most probably anemia chronic disease. CONDITION Patient Condition: Stable HOME CARE INSTRUCTIONS: Special Diet: soft diet FOLLOW UP/APPOINTMENTS Follow-up Plan 1. Follow up with Dr. Ruddy Crawley in 1 week 2. Follow up with Dr. Jonatan De Los Santos in 1 week 3. Follow up with Dr. Titi Eid in 1 week WALTER PINA May 18, 2017 14:20
[2017-05-18] MEDS ORDERED: MAGNESIUM OXIDE 400 MG TAB PO ONE (14:30)
--- NOTE | 2017-05-18 16:05 | PN ---
Date/Time of Note Date/Time of Note DATE: 05/18/17 TIME: 16:03 Assessment/Plan VTE Prophylaxis VTE Prophylaxis Intervention: ambulation Lines/Catheters IV Catheter Type (from Nrs): Central Line Central line still needed: Yes Urinary Cath still in place: Yes Reason Cath still needed: other (indicate) (bladder surgery) Assessment/Plan Assessment/Plan No new suggestions. Would focus on P.T. Subjective 24 Hr Interval Summary Free Text/Dictation Pt eating Exam/Review of Systems Vital Signs Vitals Vital Signs Date Time Temp Pulse Resp B/P Pulse Ox O2 Delivery O2 Flow Rate FiO2 05/18/17 07:31 97.5 86 20 97/55 98 Intake and Output 05/17/17 05/17/17 05/18/17 15:00 23:00 07:00 Intake Total 700 ml 870 ml 1110 ml Output Total 1000 ml 1000 ml 705 ml Balance -300 ml -130 ml 405 ml Exam Constitutional: alert, oriented Head: normocephalic Eyes: nl conjunctiva Neck: supple Respiratory: clear to auscultation Cardiovascular: regular rate and rhythm Gastrointestinal: other (s/p surgery) Results Result Diagram: 05/18/17 0858 05/18/17 0858 Results 24 hrs Laboratory Tests Test 05/17/17 20:54 05/18/17 08:56 05/18/17 08:57 05/18/17 08:58 Bedside Glucose 125 124 Phosphorus Level 3.9 Magnesium Level 1.6 L White Blood Count 5.2 # Red Blood Count 3.33 L Hemoglobin 9.3 L Hematocrit 30.4 L Mean Corpuscular Volume 91.3 Mean Corpuscular Hemoglobin 27.9 L Mean Corpuscular Hemoglobin Concent 30.6 L Red Cell Distribution Width 14.6 H Platelet Count 347 # Mean Platelet Volume 10.7 H Neutrophils % 64.2 Lymphocytes % 21.0 Monocytes % 9.2 Eosinophils % 4.8 Basophils % 0.4 Nucleated Red Blood Cells % 0.0 Neutrophils # (Manual) 3.3 Lymphocytes # 1.1 Monocytes # 0.5 Eosinophils # 0.3 Basophils # 0.0 Nucleated Red Blood Cells # 0.0 Sodium Level 144 Potassium Level 4.6 Chloride Level 104 Carbon Dioxide Level 28 Anion Gap 17 H Blood Urea Nitrogen 10 Creatinine 0.38 L Glucose Level 130 Calcium Level 9.3 Total Bilirubin Direct Bilirubin Indirect Bilirubin Aspartate Amino Transf (AST/SGOT) 41 Alanine Aminotransferase (ALT/SGPT) 36 Alkaline Phosphatase 136 H Total Protein 6.8 Albumin 3.4 Globulin 3.40 H Albumin/Globulin Ratio 1.00 Medications Medications Current Medications Ondansetron HCl (Zofran Inj) 4 mg Q6H PRN IV NAUSEA AND/OR VOMITING Last administered on 05/06/17 01:09; Admin Dose 4 MG; Start 04/23/17 at 22:30 Lorazepam (Ativan) 2 mg Q10MIN PRN IV seizure; Start 04/24/17 at 11:00 Methylprednisolone Sodium Succinate (Solu-Medrol) 20 mg DAILY IV Last administered on 05/18/17 08:57; Admin Dose 20 MG; Start 04/24/17 at 11:30 Folic Acid (Folic Acid) 1 mg DAILY PO Last administered on 05/18/17 08:56; Admin Dose 1 MG; Start 04/24/17 at 14:30 Multivitamins Therapeutic (Theragran) 1 tab DAILY PO Last administered on 08:56; Admin Dose 1 TAB; Start 04/24/17 at 14:30 Primidone (Mysoline) 250 mg TID PO Last administered on 05/15/17 09:14; Admin Dose 250 MG; Start 04/24/17 at 15:00; Status Future Hold Sulfasalazine (Azulfidine) 500 mg QID PO Last administered on 05/18/17 13:12; Admin Dose 500 MG; Start 04/24/17 at 17:00 Atorvastatin Calcium (Lipitor) 20 mg DAILY@21 PO Last administered on 20:43; Admin Dose 20 MG; Start 04/24/17 at 21:00 Non-Formulary Medication 1 DOSE = 20 mcg/ 0.08ml DAILY SC Last administered on 05/18/17 08:57; Admin Dose 1 EA; Start 04/25/17 at 09:00 Levetiracetam (Keppra 500 Mg/ 100ml (Pmx)) 100 ml @ 400 mls/hr Q12 IVPB Last administered on 05/18/17 08:57; Admin Dose 400 MLS/HR; Start 04/30/17 at 21:00 Hydromorphone HCl (Dilaudid) 0.5 mg Q2H PRN IV PAIN LEVEL 1-5 Last administered on 05/15/17 09:26; Admin Dose 0.5 MG; Start 05/05/17 at 23:30 Pantoprazole (Protonix Tab) 40 mg DAILY@06 PO Last administered on 05/18/17 06 :12; Admin Dose 40 MG; Start 05/06/17 at 06:00 Hydromorphone HCl (Dilaudid) 1 mg Q2 PRN IV pain 6-10 Last administered on 05/18 14:49; Admin Dose 1 MG; Start 05/05/17 at 23:30 Tramadol HCl (Ultram) 50 mg Q6H PRN PO PAIN LEVEL 4-7 Last administered on 05/16 23:44; Admin Dose 50 MG; Start 05/06/17 at 01:00 Enoxaparin Sodium (Lovenox) 40 mg DAILY SC Last administered on 05/18/17 09:10 ; Admin Dose 40 MG; Start 05/10/17 at 17:30 Hydrocortisone (Hydrocortisone 0.5% Cr) 1 applic BID PRN TOP ITCHING Last administered on 05/14/17 01:49; Admin Dose 1 APPLIC; Start 05/12/17 at 02:30 Diagnostic Test (Pha) (Accu-Chek) 1 ea Q12 XX Last administered on 05/17/17 20 :43; Admin Dose 1 EA; Start 05/13/17 at 09:00 Diphenhydramine HCl (Benadryl) 25 mg Q6H PRN IV PRURITUS; Start 05/15/17 at 14: 30 Primidone (Mysoline) 250 mg TID PO Last administered on 05/18/17 13:12; Admin Dose 250 MG; Start 05/15/17 at 15:00 Acetaminophen/ Hydrocodone Bitart ([place] (5/325)) 1 tab Q4H PRN PO pain 4-6 Last administered on 05/18/17 13:12; Admin Dose 1 TAB; Start 05/18/17 at 10:00 Acetaminophen/ Hydrocodone Bitart ([place] (5/325)) 2 tab Q4H PRN PO pain 7-10; Start 05/18/17 at 10:00 SHANA OVALLE MD May 18, 2017 16:05
--- NOTE | 2017-05-18 19:44 | PN ---
Date/Time of Note Date/Time of Note DATE: 05/18/17 TIME: 19:40 Assessment/Plan VTE Prophylaxis VTE Prophylaxis Intervention: SCD's Lines/Catheters IV Catheter Type (from Nrs): Central Line Central line still needed: Yes Urinary Cath still in place: Yes Reason Cath still needed: other (indicate) (Urological surgery) Assessment/Plan Chief Complaint/Hosp Course Patient is postop partial cystectomy and excision of pelvic tumor. She is doing reasonably well , she did pass flatus . She is tolerating p.o. diet well and had a bowel movement. The UCHE drain has been removed . We'll do a CT cystogram in a.m. and if there is no extravasation of contrast material then we could DC the Stubbs catheter. Problems: Subjective 24 Hr Interval Summary Constitutional: no complaints, other (She complains of pain all over but appears comfortable) Eyes: no complaints ENT: no complaints Respiratory: no complaints Cardiovascular: no complaints Gastrointestinal: pain (From removing the UCHE drain), No nausea, No vomiting Genitourinary: No bleeding, No hematuria Skin: no complaints Exam/Review of Systems Vital Signs Vitals Vital Signs Date Time Temp Pulse Resp B/P Pulse Ox O2 Delivery O2 Flow Rate FiO2 05/18/17 07:31 97.5 86 20 97/55 98 Intake and Output 05/17/17 05/17/17 05/18/17 15:00 23:00 07:00 Intake Total 700 ml 870 ml 1110 ml Output Total 1000 ml 1000 ml 705 ml Balance -300 ml -130 ml 405 ml Exam Constitutional: alert, oriented Psych: no complaints Head: normocephalic Eyes: nl conjunctiva Neck: supple Respiratory: normal air movement Gastrointestinal: soft Genitourinary - Female: other (Stubbs draining clear urine), No CVA tenderness Results Result Diagram: 05/18/17 0858 05/18/17 0858 Results 24 hrs Laboratory Tests Test 05/17/17 20:54 05/18/17 08:56 05/18/17 08:57 05/18/17 08:58 Bedside Glucose 125 124 Phosphorus Level 3.9 Magnesium Level 1.6 L White Blood Count 5.2 # Red Blood Count 3.33 L Hemoglobin 9.3 L Hematocrit 30.4 L Mean Corpuscular Volume 91.3 Mean Corpuscular Hemoglobin 27.9 L Mean Corpuscular Hemoglobin Concent 30.6 L Red Cell Distribution Width 14.6 H Platelet Count 347 # Mean Platelet Volume 10.7 H Neutrophils % 64.2 Lymphocytes % 21.0 Monocytes % 9.2 Eosinophils % 4.8 Basophils % 0.4 Nucleated Red Blood Cells % 0.0 Neutrophils # (Manual) 3.3 Lymphocytes # 1.1 Monocytes # 0.5 Eosinophils # 0.3 Basophils # 0.0 Nucleated Red Blood Cells # 0.0 Sodium Level 144 Potassium Level 4.6 Chloride Level 104 Carbon Dioxide Level 28 Anion Gap 17 H Blood Urea Nitrogen 10 Creatinine 0.38 L Glucose Level 130 Calcium Level 9.3 Total Bilirubin Direct Bilirubin Indirect Bilirubin Aspartate Amino Transf (AST/SGOT) 41 Alanine Aminotransferase (ALT/SGPT) 36 Alkaline Phosphatase 136 H Total Protein 6.8 Albumin 3.4 Globulin 3.40 H Albumin/Globulin Ratio 1.00 Medications Medications Current Medications Ondansetron HCl (Zofran Inj) 4 mg Q6H PRN IV NAUSEA AND/OR VOMITING Last administered on 05/06/17 01:09; Admin Dose 4 MG; Start 04/23/17 at 22:30 Lorazepam (Ativan) 2 mg Q10MIN PRN IV seizure; Start 04/24/17 at 11:00 Methylprednisolone Sodium Succinate (Solu-Medrol) 20 mg DAILY IV Last administered on 05/18/17 08:57; Admin Dose 20 MG; Start 04/24/17 at 11:30 Folic Acid (Folic Acid) 1 mg DAILY PO Last administered on 05/18/17 08:56; Admin Dose 1 MG; Start 04/24/17 at 14:30 Multivitamins Therapeutic (Theragran) 1 tab DAILY PO Last administered on 08:56; Admin Dose 1 TAB; Start 04/24/17 at 14:30 Primidone (Mysoline) 250 mg TID PO Last administered on 05/15/17 09:14; Admin Dose 250 MG; Start 04/24/17 at 15:00; Status Future Hold Sulfasalazine (Azulfidine) 500 mg QID PO Last administered on 05/18/17 17:13; Admin Dose 500 MG; Start 04/24/17 at 17:00 Atorvastatin Calcium (Lipitor) 20 mg DAILY@21 PO Last administered on 20:43; Admin Dose 20 MG; Start 04/24/17 at 21:00 Non-Formulary Medication 1 DOSE = 20 mcg/ 0.08ml DAILY SC Last administered on 05/18/17 08:57; Admin Dose 1 EA; Start 04/25/17 at 09:00 Levetiracetam (Keppra 500 Mg/ 100ml (Pmx)) 100 ml @ 400 mls/hr Q12 IVPB Last administered on 05/18/17 08:57; Admin Dose 400 MLS/HR; Start 04/30/17 at 21:00 Hydromorphone HCl (Dilaudid) 0.5 mg Q2H PRN IV PAIN LEVEL 1-5 Last administered on 05/15/17 09:26; Admin Dose 0.5 MG; Start 05/05/17 at 23:30 Pantoprazole (Protonix Tab) 40 mg DAILY@06 PO Last administered on 05/18/17 06 :12; Admin Dose 40 MG; Start 05/06/17 at 06:00 Hydromorphone HCl (Dilaudid) 1 mg Q2 PRN IV pain 6-10 Last administered on 05/18 14:49; Admin Dose 1 MG; Start 05/05/17 at 23:30 Tramadol HCl (Ultram) 50 mg Q6H PRN PO PAIN LEVEL 4-7 Last administered on 05/16 23:44; Admin Dose 50 MG; Start 05/06/17 at 01:00 Enoxaparin Sodium (Lovenox) 40 mg DAILY SC Last administered on 05/18/17 09:10 ; Admin Dose 40 MG; Start 05/10/17 at 17:30 Hydrocortisone (Hydrocortisone 0.5% Cr) 1 applic BID PRN TOP ITCHING Last administered on 05/14/17 01:49; Admin Dose 1 APPLIC; Start 05/12/17 at 02:30 Diphenhydramine HCl (Benadryl) 25 mg Q6H PRN IV PRURITUS; Start 05/15/17 at 14: 30 Primidone (Mysoline) 250 mg TID PO Last administered on 05/18/17 13:12; Admin Dose 250 MG; Start 05/15/17 at 15:00 Acetaminophen/ Hydrocodone Bitart ([place] (5/325)) 1 tab Q4H PRN PO pain 4-6 Last administered on 05/18/17t 13:12; Admin Dose 1 TAB; Start 05/18/17 at 10:00 Acetaminophen/ Hydrocodone Bitart ([place] (5/325)) 2 tab Q4H PRN PO pain 7-10; Start 05/18/17 at 10:00 TRESSA SIMMONS MD May 18, 2017 19:44
[2017-05-18] MEDS: ATORVASTATIN 20 MG TAB PO SCH (20:17)
[2017-05-18 20:19] VITALS: BP 94/52; RESP 20
[2017-05-18] MEDS: HYDROCORTISONE 0.5% 28.35 GM CR TOP PRN (21:10)
[2017-05-19 01:48] VITALS: BP 105/55; RESP 18
[2017-05-19] MEDS: PANTOPRAZOLE (EC) 40 MG TAB PO SCH (05:57)
[2017-05-19 07:58] VITALS: BP 100/59; RESP 18
--- NOTE | 2017-05-19 09:18 | PN ---
Date/Time of Note Date/Time of Note DATE: 05/19/17 TIME: 09:13 Assessment/Plan Lines/Catheters IV Catheter Type (from Nrs): Central Line Stubbs in Place (from Nrs): Yes Assessment/Plan Chief Complaint/Hosp Course 1. 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 11 x 9 cm, Partial cystectomy & bilateral ureteral stent placement; Path: Urachal cancer, intra-abdominal:Mucinous adenocarcinoma (path similar to previous bladder tumor); +bm, +flatus -onc f/u; tx -pain management: PO pain management -soft diet today with protein shakes -OOB, increase ambulation -IS -UCHE dc'd -Patient may be discharged per urology and medical team. To follow up with us in office in 1-2 weeks. 2. Leukocytosis: reactive +/- infective; leukopenia -monitor -supportive 3.Episode of hypotension w tachycardia:currently BP stable -supportive -careful monitoring 4. Normocytic anemia: no acute bleed noted -monitor -transfuse as needed 5. History of urachal ca, recurrent; poss chemo -as above -per onc 6. UTI: multiorganism pathogens -abx per sensitivity 7. Hypoalbuminemia: likely nutritional -nutrition optimization as able 8. Right neck pruritus: poss dressing or antimicrobial cleanser related- improving Patient seen and examined in collaboration with Dr. Jonatan De Los Santos. Thank you. Problems: Subjective 24 Hr Interval Summary Feels well. Tolerating solid diet, +bowel function. Abdominal pain improved by PO analgesics. Pending cystogram today. No fevers, chills, n/v/d/dysuria, sob, congested cough, cp, palpitations. Exam/Review of Systems Vital Signs Vitals Vital Signs Date Time Temp Pulse Resp B/P Pulse Ox O2 Delivery O2 Flow Rate FiO2 05/19/17 07:58 98.7 85 18 100/59 98 Intake and Output 05/18/17 05/18/17 05/19/17 15:00 23:00 07:00 Intake Total 80 ml 1180 ml 120 ml Output Total 5 ml 1000 ml 200 ml Balance 75 ml 180 ml -80 ml Exam Free Text/Dictation Constitutional: alert, oriented, pleasant Psych: anxiety, no complaints Head: atraumatic, normocephalic Eyes: nl lids, nl sclera ENMT: mucosa pink and moist, nl nasal mucosa & septum, redness right neck skin under tegaderm; improved Neck: non-tender, supple; central line, Respiratory: clear to auscultation, normal air movement Cardiovascular: regular rate and rhythm, No edema Gastrointestinal: soft, min tender, surgical incision with maurizio, no periwound erythema/drainage, +bowel function : no dysuria, Musculoskeletal: nl extremities to inspection Extremities: normal pulses, No edema 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: nl mental status, nl speech, nl strength Lymph: No nl lymph nodes Results Result Diagram: 05/18/17 0858 05/18/17 0858 JENIFER CABAN NP May 19, 2017 09:18
[2017-05-19] MEDS: METHYLPREDNISOLONE 40 MG INJ IV SCH (09:22)
[2017-05-19] MEDS: MULTIVITAMINS THERAPEUTIC TAB PO SCH (09:22)
[2017-05-19] MEDS: SULFASALAZINE 500 MG TAB PO SCH ×4 (09:23→21:51)
[2017-05-19] MEDS: PRIMIDONE 50 MG TAB PO SCH ×2 (09:23→14:53)
[2017-05-19] MEDS: FOLIC ACID 1 MG TAB PO SCH (09:23)
[2017-05-19] MEDS: ENOXAPARIN 40 MG/0.4 ML SYG SC SCH (09:24)
[2017-05-19] MEDS: HYDROmorphONE 1 MG/ML SYG IV PRN ×3 (09:41→21:52)
[2017-05-19] MEDS: TERIPARATIDE 600 MCG/2.4 ML SC SCH (09:44)
[2017-05-19] MEDS: LEVETIRACETAM 500 MG (PMX) 100 ML IVPB SCH ×2 (11:06→21:50)
--- NOTE | 2017-05-19 11:53 | PN ---
Date/Time of Note Date/Time of Note LATE ENTRY DATE: 05/18/17 Assessment/Plan Lines/Catheters IV C[facility]ter Type (from [facility]): Central Line Urinary Cath still in place: Yes Assessment/Plan Chief Complaint/Hosp Course Assessment and plan 1. 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 Patient status post transurethral resection of bladder tumors on April 29, 2017. She also had a cystoscopy and insertion of bilateral ureteral catheters along with partial cystectomy on May 05, 2017. Patient also status post exploratory laparotomy with extensive lysis of adhesions and repair of colotomy; implantation of biologic over the colon repair and bladder repair; excision of pelvic cystic lesions; and excision of previous scar and excessive abdominal skin and fat on April 2017. Patient for outpatient follow-up with oncologist. Plan for cystogram per urology. 2. UTI. Patient status post antimicrobials. Improved at present. Will monitor. 3. Seizure disorder. Continue anticonvulsants 4. Rheumatoid arthritis. Continue on analgesics 5. History of drug and syndrome. Continue current management. 6. History of brain tumor. Status post resection. No active issue at this time. Will monitor. 7. Normocytic normochromic anemia. Likely of chronic disease. Monitor H&H. Stable at present. Disposition and plan: Follow-up with urology. Tentative plan for cystogram. DC when medically stable and cleared by all consultants Problems: Subjective 24 Hr Interval Summary Free Text/Dictation No signs or symptoms of distress. Family at bedside Exam/Review of Systems Vital Signs Vitals Vital Signs Date Time Temp Pulse Resp B/P Pulse Ox O2 Delivery O2 Flow Rate FiO2 05/19/17 07:58 98.7 85 18 100/59 98 Intake and Output 05/18/17 05/18/17 05/19/17 15:00 23:00 07:00 Intake Total 80 ml 1180 ml 120 ml Output Total 5 ml 1000 ml 200 ml Balance 75 ml 180 ml -80 ml Exam Constitutional: alert, oriented Psych: nl mood/affect Head: normocephalic Neck: supple, No jvd Respiratory: clear to auscultation, normal air movement Cardiovascular: regular rate and rhythm Gastrointestinal: soft, tender Musculoskeletal: nl extremities to inspection 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 TENDER II-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, nl mental status, nl speech Skin: other (Surgical site on abdomen clean dry and intact.) Results Result Diagram: 05/18/1785705/18/1758 Medications Medications Current Medications Ondansetron HCl (Zofran Inj) 4 mg Q6H PRN IV NAUSEA AND/OR VOMITING Last administered on 05/06/17 01:09; Admin Dose 4 MG; Start 04/23/17 at 22:30 Lorazepam (Ativan) 2 mg Q10MIN PRN IV seizure; Start 04/24/17 at 11:00 Methylprednisolone Sodium Succinate (Solu-Medrol) 20 mg DAILY IV Last administered on 05/19/17 09:22; Admin Dose 20 MG; Start 04/24/17 at 11:30 Folic Acid (Folic Acid) 1 mg DAILY PO Last administered on 05/19/17 09:23; Admin Dose 1 MG; Start 04/24/17 at 14:30 Multivitamins Therapeutic (Theragran) 1 tab DAILY PO Last administered on 09:22; Admin Dose 1 TAB; Start 04/24/17 at 14:30 Sulfasalazine (Azulfidine) 500 mg QID PO Last administered on 05/19/17 09:23; Admin Dose 500 MG; Start 04/24/17 at 17:00 Atorvastatin Calcium (Lipitor) 20 mg DAILY@21 PO Last administered on 20:17; Admin Dose 20 MG; Start 04/24/17 at 21:00 Non-Formulary Medication 1 DOSE = 20 mcg/ 0.08ml DAILY SC Last administered on 05/19/17 09:44; Admin Dose 1 EA; Start 04/25/17 at 09:00 Levetiracetam (Keppra 500 Mg/ 100ml (Pmx)) 100 ml @ 400 mls/hr Q12 IVPB Last administered on 05/19/17 11:06; Admin Dose 400 MLS/HR; Start 04/30/17 at 21:00 Hydromorphone HCl (Dilaudid) 0.5 mg Q2H PRN IV PAIN LEVEL 1-5 Last administered on 05/15/17 09:26; Admin Dose 0.5 MG; Start 05/05/17 at 23:30 Pantoprazole (Protonix Tab) 40 mg DAILY@06 PO Last administered on 05/19/17 05 :57; Admin Dose 40 MG; Start 05/06/17 at 06:00 Hydromorphone HCl (Dilaudid) 1 mg Q2 PRN IV pain 6-10 Last administered on 05/19 09:41; Admin Dose 1 MG; Start 05/05/17 at 23:30 Tramadol HCl (Ultram) 50 mg Q6H PRN PO PAIN LEVEL 4-7 Last administered on 05/16 23:44; Admin Dose 50 MG; Start 05/06/17 at 01:00 Enoxaparin Sodium (Lovenox) 40 mg DAILY SC Last administered on 05/19/17 09:24 ; Admin Dose 40 MG; Start 05/10/17 at 17:30 Hydrocortisone (Hydrocortisone 0.5% Cr) 1 applic BID PRN TOP ITCHING Last administered on 05/18/17 21:10; Admin Dose 1 APPLIC; Start 05/12/17 at 02:30 Diphenhydramine HCl (Benadryl) 25 mg Q6H PRN IV PRURITUS; Start 05/15/17 at 14: 30 Primidone (Mysoline) 250 mg TID PO Last administered on 05/19/17 09:23; Admin Dose 250 MG; Start 05/15/17 at 15:00 Acetaminophen/ Hydrocodone Bitart ([place] (5/325)) 1 tab Q4H PRN PO pain 4-6 Last administered on 05/18/17 13:12; Admin Dose 1 TAB; Start 05/18/17 at 10:00 Acetaminophen/ Hydrocodone Bitart ([place] (5/325)) 2 tab Q4H PRN PO pain 7-10 Last administered on 05/18/17 20:24; Admin Dose 2 TAB; Start 05/18/17 at 10:00 WALTER PINA May 19, 2017 11:53
--- NOTE | 2017-05-19 11:56 | PN ---
Date/Time of Note Date/Time of Note DATE: 05/19/17 TIME: 11:53 Assessment/Plan VTE Prophylaxis VTE Prophylaxis Intervention: LMWH Lines/Catheters IV Catheter Type (from [facility] [place] Central Line Urinary Cath still in place: Yes Assessment/Plan Chief Complaint/Hosp Course Assessment and plan 1. 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 Patient status post transurethral resection of bladder tumors on April 29, 2017. She also had a cystoscopy and insertion of bilateral ureteral catheters along with partial cystectomy on May 05, 2017. Patient also status post exploratory laparotomy with extensive lysis of adhesions and repair of colotomy; implantation of biologic over the colon repair and bladder repair; excision of pelvic cystic lesions; and excision of previous scar and excessive abdominal skin and fat on April 2017. Patient for outpatient follow-up with oncologist. Plan for cystogram per urology. 2. UTI. Patient status post antimicrobials. Improved at present. Will monitor. 3. Seizure disorder. Continue anticonvulsants. Stable 4. Rheumatoid arthritis. Continue on analgesics. Stable 5. History of Sjgren syndrome. Continue current management. 6. History of brain tumor. Status post resection. No active issue at this time. Will monitor. 7. Normocytic normochromic anemia. Likely of chronic disease. Monitor H&H. Stable at present. Disposition and plan: Plan for cystogram. DC when cleared by consultants Discussed with Dr. Guardado Problems: Subjective 24 Hr Interval Summary Free Text/Dictation No specific complaints at this time. Comfortable at present. 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 II-XII 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, nl mental status, nl speech Results Result Diagram: 05/18/1758 05/18/1758 Medications Medications Current Medications Ondansetron HCl (Zofran Inj) 4 mg Q6H PRN IV NAUSEA AND/OR VOMITING Last administered on 05/06/17 01:09; Admin Dose 4 MG; Start 04/23/17 at 22:30 Lorazepam (Ativan) 2 mg Q10MIN PRN IV seizure; Start 04/24/17 at 11:00 Methylprednisolone Sodium Succinate (Solu-Medrol) 20 mg DAILY IV Last administered on 05/19/17 09:22; Admin Dose 20 MG; Start 04/24/17 at 11:30 Folic Acid (Folic Acid) 1 mg DAILY PO Last administered on 05/19/17 09:23; Admin Dose 1 MG; Start 04/24/17 at 14:30 Multivitamins Therapeutic (Theragran) 1 tab DAILY PO Last administered on 09:22; Admin Dose 1 TAB; Start 04/24/17 at 14:30 Sulfasalazine (Azulfidine) 500 mg QID PO Last administered on 05/19/17 09:23; Admin Dose 500 MG; Start 04/24/17 at 17:00 Atorvastatin Calcium (Lipitor) 20 mg DAILY@21 PO Last administered on 20:17; Admin Dose 20 MG; Start 04/24/17 at 21:00 Non-Formulary Medication 1 DOSE = 20 mcg/ 0.08ml DAILY SC Last administered on 05/19/17 09:44; Admin Dose 1 EA; Start 04/25/17 at 09:00 Levetiracetam (Keppra 500 Mg/ 100ml (Pmx)) 100 ml @ 400 mls/hr Q12 IVPB Last administered on 05/19/17 11:06; Admin Dose 400 MLS/HR; Start 04/30/17 at 21:00 Hydromorphone HCl (Dilaudid) 0.5 mg Q2H PRN IV PAIN LEVEL 1-5 Last administered on 05/15/17 09:26; Admin Dose 0.5 MG; Start 05/05/17 at 23:30 Pantoprazole (Protonix Tab) 40 mg DAILY@06 PO Last administered on 05/19/17 05 :57; Admin Dose 40 MG; Start 05/06/17 at 06:00 Hydromorphone HCl (Dilaudid) 1 mg Q2 PRN IV pain 6-10 Last administered on 05/19 09:41; Admin Dose 1 MG; Start 05/05/17 at 23:30 Tramadol HCl (Ultram) 50 mg Q6H PRN PO PAIN LEVEL 4-7 Last administered on 05/16 23:44; Admin Dose 50 MG; Start 05/06/17 at 01:00 Enoxaparin Sodium (Lovenox) 40 mg DAILY SC Last administered on 05/19/17 09:24 ; Admin Dose 40 MG; Start 05/10/17 at 17:30 Hydrocortisone (Hydrocortisone 0.5% Cr) 1 applic BID PRN TOP ITCHING Last administered on 05/18/17 21:10; Admin Dose 1 APPLIC; Start 05/12/17 at 02:30 Diphenhydramine HCl (Benadryl) 25 mg Q6H PRN IV PRURITUS; Start 05/15/17 at 14: 30 Primidone (Mysoline) 250 mg TID PO Last administered on 05/19/17 09:23; Admin Dose 250 MG; Start 05/15/17 at 15:00 Acetaminophen/ Hydrocodone Bitart ([place] (5/325)) 1 tab Q4H PRN PO pain 4-6 Last administered on 05/18/17 13:12; Admin Dose 1 TAB; Start 05/18/17 at 10:00 Acetaminophen/ Hydrocodone Bitart ([place] (5/325)) 2 tab Q4H PRN PO pain 7-10 Last administered on 05/18/17 20:24; Admin Dose 2 TAB; Start 05/18/17 at 10:00 WALTER PINA May 19, 2017 11:56
--- NOTE | 2017-05-19 12:56 | PN ---
Date/Time of Note Date/Time of Note DATE: 05/19/17 TIME: 12:53 Assessment/Plan VTE Prophylaxis VTE Prophylaxis Intervention: SCD's Lines/Catheters IV Catheter Type (from Nrs): Central Line Central line still needed: Yes Urinary Cath still in place: Yes Reason Cath still needed: other (indicate) (Urological surgery) Assessment/Plan Chief Complaint/Hosp Course Patient is postop partial cystectomy and excision of pelvic tumor. She is doing reasonably well , she did pass flatus . She is tolerating p.o. diet well and had a bowel movement. The UCHE drain has been removed . CT cystogram is pending. if there is no extravasation of contrast material then we could DC the Stubbs catheter. Problems: Subjective 24 Hr Interval Summary Free Text/Dictation Patient is tolerating her diet well, Stubbs catheter is draining well, CT cystogram is still pending Constitutional: no complaints Eyes: no complaints ENT: no complaints Respiratory: no complaints Cardiovascular: no complaints Gastrointestinal: flatus, passing stool Genitourinary: No bleeding, No hematuria Musculoskeletal: no complaints Exam/Review of Systems Vital Signs Vitals Vital Signs Date Time Temp Pulse Resp B/P Pulse Ox O2 Delivery O2 Flow Rate FiO2 05/19/17 07:58 98.7 85 18 100/59 98 Intake and Output 05/18/17 05/18/17 05/19/17 15:00 23:00 07:00 Intake Total 80 ml 1180 ml 120 ml Output Total 5 ml 1000 ml 200 ml Balance 75 ml 180 ml -80 ml Exam Constitutional: alert Psych: no complaints Eyes: nl conjunctiva Neck: supple Respiratory: normal air movement Gastrointestinal: soft Genitourinary - Female: other (Stubbs draining clear urine) Results Result Diagram: 05/18/1758 05/18/1758 Medications Medications Current Medications Ondansetron HCl (Zofran Inj) 4 mg Q6H PRN IV NAUSEA AND/OR VOMITING Last administered on 05/06/17 01:09; Admin Dose 4 MG; Start 04/23/17 at 22:30 Lorazepam (Ativan) 2 mg Q10MIN PRN IV seizure; Start 04/24/17 at 11:00 Methylprednisolone Sodium Succinate (Solu-Medrol) 20 mg DAILY IV Last administered on 05/19/17 09:22; Admin Dose 20 MG; Start 04/24/17 at 11:30 Folic Acid (Folic Acid) 1 mg DAILY PO Last administered on 05/19/17 09:23; Admin Dose 1 MG; Start 04/24/17 at 14:30 Multivitamins Therapeutic (Theragran) 1 tab DAILY PO Last administered on 09:22; Admin Dose 1 TAB; Start 04/24/17 at 14:30 Sulfasalazine (Azulfidine) 500 mg QID PO Last administered on 05/19/17 09:23; Admin Dose 500 MG; Start 04/24/17 at 17:00 Atorvastatin Calcium (Lipitor) 20 mg DAILY@21 PO Last administered on 20:17; Admin Dose 20 MG; Start 04/24/17 at 21:00 Non-Formulary Medication 1 DOSE = 20 mcg/ 0.08ml DAILY SC Last administered on 05/19/17 09:44; Admin Dose 1 EA; Start 04/25/17 at 09:00 Levetiracetam (Keppra 500 Mg/ 100ml (Pmx)) 100 ml @ 400 mls/hr Q12 IVPB Last administered on 05/19/17 11:06; Admin Dose 400 MLS/HR; Start 04/30/17 at 21:00 Hydromorphone HCl (Dilaudid) 0.5 mg Q2H PRN IV PAIN LEVEL 1-5 Last administered on 05/15/17 09:26; Admin Dose 0.5 MG; Start 05/05/17 at 23:30 Pantoprazole (Protonix Tab) 40 mg DAILY@06 PO Last administered on 05/19/17 05 :57; Admin Dose 40 MG; Start 05/06/17 at 06:00 Hydromorphone HCl (Dilaudid) 1 mg Q2 PRN IV pain 6-10 Last administered on 05/19 09:41; Admin Dose 1 MG; Start 05/05/17 at 23:30 Tramadol HCl (Ultram) 50 mg Q6H PRN PO PAIN LEVEL 4-7 Last administered on 05/16 23:44; Admin Dose 50 MG; Start 05/06/17 at 01:00 Enoxaparin Sodium (Lovenox) 40 mg DAILY SC Last administered on 05/19/17 09:24 ; Admin Dose 40 MG; Start 05/10/17 at 17:30 Hydrocortisone (Hydrocortisone 0.5% Cr) 1 applic BID PRN TOP ITCHING Last administered on 05/18/17 21:10; Admin Dose 1 APPLIC; Start 05/12/17 at 02:30 Diphenhydramine HCl (Benadryl) 25 mg Q6H PRN IV PRURITUS; Start 05/15/17 at 14: 30 Primidone (Mysoline) 250 mg TID PO Last administered on 05/19/17 09:23; Admin Dose 250 MG; Start 05/15/17 at 15:00 Acetaminophen/ Hydrocodone Bitart ([place] (5/325)) 1 tab Q4H PRN PO pain 4-6 Last administered on 05/18/17 13:12; Admin Dose 1 TAB; Start 05/18/17 at 10:00 Acetaminophen/ Hydrocodone Bitart ([place] (5/325)) 2 tab Q4H PRN PO pain 7-10 Last administered on 05/18/17 20:24; Admin Dose 2 TAB; Start 05/18/17 at 10:00 TRESSA SIMMONS MD May 19, 2017 12:56
[2017-05-19 13:33] VITALS: BP 111/59; RESP 20
[2017-05-19] MEDS: PRIMIDONE 250 MG TAB PO SCH ×2 (14:26→21:51)
[2017-05-19] MEDS ORDERED: IOHEXOL 300MG/ML 150 ML BTL ONE (15:35)
--- NOTE | 2017-05-19 19:28 | RADRPT ---
PROCEDURE: CT Cystogram. CLINICAL INDICATION: Bladder surgery. Evaluate for bladder leak. TECHNIQUE: Multiple contiguous axial CT images of the pelvis were obtained prior to and after the instillation of approximately 70-100 cc of dilute water-soluble Omnipaque-300 contrast into the blad randall via gravity through a Stubbs. Postvoid images were also obtained. Coronal and sagittal reconstr uctions were also performed. CTDIvol (mGy): 9.20, 9.44, 13.0 a; Total Exam DLP (mGy-cm): 1021.56 . One or more of the following dose reduction techniques were utilized: - Automated exposure control. - Adjustment of the mA and/or kV according to patient size. - Use of iterative reconstruction technique. COMPARISON: CT drainage 04/28/2017. CT abdomen/pelvis 04/23/2017. FINDINGS: Initial axial images of the pelvis demonstrate collapse of the bladder around a Stubbs balloon. Adeq uate expansion of the urinary bladder is observed following the instillation of intraluminal contras t via gravity. There is no extravasation of contrast from the urinary bladder lumen. A small amount of contrast is seen within the lower vaginal canal and likely a result of reflux. Postvoid images are equally unremarkable with mild residual contrast within the lower vaginal canal. There is no fr ee pelvic fluid. There is no pelvic sidewall or inguinal lymphadenopathy. There is no pelvic fluid collection. There is a small 4.3 cm circumscribed cystic structure within the central pelvis measuring approxima tely 18 HU in density. There is also a partial thin rim of calcification. Imaging findings suggest the presence of a mildly complicated cyst. The rectosigmoid colon is collapsed. The visualized por tions of the small and large intestines are unremarkable. Surgical changes compatible with lower ventral abdominal wall hernia repair are now identified. The ventral abdominal wall is intact. Bone density is decreased. Mild moderate compression deformity of L5 is unchanged. Degenerative changes of the lower lumbar spine are observed. IMPRESSION: No evidence of bladder leak. Small cystic structure of the pelvis likely representing a mildly complicated cyst. This is [facility] ed from 04/23/2017. RPTAT: HLST .Betzy Godoy MD, MD Date Time Electronically viewed and signed by .Betzy Godoy MD, on 05/19/2017 19:28 .T/
[2017-05-19 20:26] VITALS: BP 101/55; RESP 20
--- NOTE | 2017-05-19 21:38 | PN ---
DATE: 05/19/2017 SUBJECTIVE: Patient is feeling well. She has minimal abdominal pain. She is beginning to eat, but states she only eats about 20 percent of her diet. Some of this is because of food preference. The patient is not experiencing nausea or vomiting. OBJECTIVE DATA: GENERAL: The patient is a well-developed, well-nourished female who is in no acute distress. VITAL SIGNS: Temperature 98.4, pulse 98, respirations 20, blood pressure 101/55, and pulse oximetry 96 percent on room air. SKIN: No ecchymosis, no petechiae or rashes. HEENT: No mucosal lesions. No scleral icterus. Pupils equal, round, react to light and accommodation. NECK: Neck is supple. No jugular distention, or thyroid enlargement. There is a triple-lumen intravenous catheter in the internal jugular on the right. CHEST: Clear to auscultation, percussion. No rhonchi, wheezes, rales, or rubs. NODES: No palpable lymphadenopathy in lymph node bearing area. CHEST: Clear to auscultation, percussion. No rhonchi, wheezes, rales, or rubs. HEART: Regular sinus rhythm. No S3, S4, murmurs, no rubs. ABDOMEN: Soft. No masses. No ascites. Bowel sounds are active. There is still a Stubbs catheter in place. EXTREMITIES: Changes consistent with rheumatoid arthritis. ASSESSMENT: 1. Urachal carcinoma resected. 2. Rheumatoid arthritis. 3. Sjogren syndrome. DISCUSSION: The patient has had a CT cystogram today. This did not demonstrate any leaks. There was a small cystic structure in the pelvis representing "a mildly complicated cyst". This is unchanged from 04/23/2017. It is unclear if this patient will be able to return home. There may be other discharge plans necessary. Dictated By: Titi Eid MD /brandon/iona /Document#: [id number]
[2017-05-19] MEDS: ATORVASTATIN 20 MG TAB PO SCH (21:51)
[2017-05-19] MEDS: HYDROCORTISONE 0.5% 28.35 GM CR TOP PRN (22:44)
[2017-05-20 01:26] VITALS: BP 95/58; RESP 20
[2017-05-20] MEDS: PANTOPRAZOLE (EC) 40 MG TAB PO SCH (06:14)
[2017-05-20 07:28] VITALS: BP 109/57; RESP 16
[2017-05-20] MEDS: FOLIC ACID 1 MG TAB PO SCH (08:42)
[2017-05-20] MEDS: PRIMIDONE 250 MG TAB PO SCH ×2 (08:42→12:33)
[2017-05-20] MEDS: METHYLPREDNISOLONE 40 MG INJ IV SCH (08:42)
[2017-05-20] MEDS: MULTIVITAMINS THERAPEUTIC TAB PO SCH (08:42)
[2017-05-20] MEDS: SULFASALAZINE 500 MG TAB PO SCH ×3 (08:42→16:10)
[2017-05-20] MEDS: LEVETIRACETAM 500 MG (PMX) 100 ML IVPB SCH (08:43)
[2017-05-20] MEDS: TERIPARATIDE 600 MCG/2.4 ML SC SCH (08:43)
[2017-05-20] MEDS: ENOXAPARIN 40 MG/0.4 ML SYG SC SCH (08:52)
[2017-05-20] MEDS: HYDROmorphONE 1 MG/ML SYG IV PRN ×3 (09:32→16:10)
--- NOTE | 2017-05-20 12:57 | PN ---
Date/Time of Note Date/Time of Note DATE: 05/20/17 TIME: 12:54 Assessment/Plan VTE Prophylaxis VTE Prophylaxis Intervention: LMWH Lines/Catheters IV [facility]from [facility] Central Line Urinary Cath still in place: Yes Assessment/Plan Chief Complaint/Hosp Course Assessment and plan 1. 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 Patient status post transurethral resection of bladder tumors on April 29, 2017. She also had a cystoscopy and insertion of bilateral ureteral catheters along with partial cystectomy on May 05, 2017. Patient also status post exploratory laparotomy with extensive lysis of adhesions and repair of colotomy; implantation of biologic over the colon repair and bladder repair; excision of pelvic cystic lesions; and excision of previous scar and excessive abdominal skin and fat on April 2017. Patient for outpatient follow-up with oncologist. Per cystogram: - No evidence of bladder leak. - Small cystic structure of the pelvis likely representing a mildly complicated cyst. This is unchanged from 04/23/2017 DC Stubbs. Urologist recommendations 2. UTI. Patient status post antimicrobials. Improved at present. Will monitor. 3. Seizure disorder. Continue anticonvulsants 4. Rheumatoid arthritis. Continue on analgesics 5. History of Sjorgen syndrome. Continue current management. 6. History of brain tumor. Status post resection. No active issue at this time. Will monitor. 7. Normocytic normochromic anemia. Likely of chronic disease. Monitor H&H. Stable at present. Disposition and plan: DC Stubbs per urologist. Plan for snf facility placement once cleared by consultants Discussed plan of care with Dr. Guardado Problems: Subjective 24 Hr Interval Summary Free Text/Dictation Comfortable at this time. No symptoms of distress. Exam/Review of Systems Vital Signs Vitals Vital Signs Date Time Temp Pulse Resp B/P Pulse Ox O2 Delivery O2 Flow Rate FiO2 05/20/17 07:28 98.5 90 16 109/57 96 Intake and Output 05/19/17 05/19/17 05/20/17 15:00 23:00 07:00 Intake Total 100 ml 880 ml 240 ml Output Total 700 ml 100 ml Balance 100 ml 180 ml 140 ml Exam Constitutional: alert, oriented Psych: nl mood/affect Head: normocephalic Neck: non-tender, supple Respiratory: clear to auscultation Cardiovascular: regular rate and rhythm Gastrointestinal: soft, tender (Less tender) Musculoskeletal: nl extremities to inspection 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: [employer] II-XII intact, nl mental status, nl speech Results Result Diagram: 05/18/1785705/18/17857 Medications Medications Current Medications Ondansetron HCl (Zofran Inj) 4 mg Q6H PRN IV NAUSEA AND/OR VOMITING Last administered on 05/06/17 01:09; Admin Dose 4 MG; Start 04/23/17 at 22:30 Lorazepam (Ativan) 2 mg Q10MIN PRN IV seizure; Start 04/24/17 at 11:00 Methylprednisolone Sodium Succinate (Solu-Medrol) 20 mg DAILY IV Last administered on 05/20/17 08:42; Admin Dose 20 MG; Start 04/24/17 at 11:30 Folic Acid (Folic Acid) 1 mg DAILY PO Last administered on 05/20/17 08:42; Admin Dose 1 MG; Start 04/24/17 at 14:30 Multivitamins Therapeutic (Theragran) 1 tab DAILY PO Last administered on 08:42; Admin Dose 1 TAB; Start 04/24/17 at 14:30 Sulfasalazine (Azulfidine) 500 mg QID PO Last administered on 05/20/17 12:33; Admin Dose 500 MG; Start 04/24/17 at 17:00 Atorvastatin Calcium (Lipitor) 20 mg DAILY@21 PO Last administered on 21:51; Admin Dose 20 MG; Start 04/24/17 at 21:00 Non-Formulary Medication 1 DOSE = 20 mcg/ 0.08ml DAILY SC Last administered on 05/20/17 08:43; Admin Dose 1 EA; Start 04/25/17 at 09:00 Levetiracetam (Keppra 500 Mg/ 100ml (Pmx)) 100 ml @ 400 mls/hr Q12 IVPB Last administered on 05/20/17 08:43; Admin Dose 400 MLS/HR; Start 04/30/17 at 21:00 Hydromorphone HCl (Dilaudid) 0.5 mg Q2H PRN IV PAIN LEVEL 1-5 Last administered on 05/15/17 09:26; Admin Dose 0.5 MG; Start 05/05/17 at 23:30 Pantoprazole (Protonix Tab) 40 mg DAILY@06 PO Last administered on 05/20/17 06 :14; Admin Dose 40 MG; Start 05/06/17 at 06:00 Hydromorphone HCl (Dilaudid) 1 mg Q2 PRN IV pain 6-10 Last administered on 05/20 12:33; Admin Dose 1 MG; Start 05/05/17 at 23:30 Tramadol HCl (Ultram) 50 mg Q6H PRN PO PAIN LEVEL 4-7 Last administered on 05/16 23:44; Admin Dose 50 MG; Start 05/06/17 at 01:00 Enoxaparin Sodium (Lovenox) 40 mg DAILY SC Last administered on 05/20/17 08:52 ; Admin Dose 40 MG; Start 05/10/17 at 17:30 Hydrocortisone (Hydrocortisone 0.5% Cr) 1 applic BID PRN TOP ITCHING Last administered on 05/19/17 22:44; Admin Dose 1 APPLIC; Start 05/12/17 at 02:30 Diphenhydramine HCl (Benadryl) 25 mg Q6H PRN IV PRURITUS; Start 05/15/17 at 14: 30 Acetaminophen/ Hydrocodone Bitart ([place] (5/325)) 1 tab Q4H PRN PO pain 4-6 Last administered on 05/18/17 13:12; Admin Dose 1 TAB; Start 05/18/17 at 10:00 Acetaminophen/ Hydrocodone Bitart ([place] (5/325)) 2 tab Q4H PRN PO pain 7-10 Last administered on 05/18/17 20:24; Admin Dose 2 TAB; Start 05/18/17 at 10:00 Primidone (Mysoline) 250 mg TID PO Last administered on 05/20/17 12:33; Admin Dose 250 MG; Start 05/19/17 at 13:56 WALTER PINA May 20, 2017 12:57
[2017-05-20 13:08] VITALS: BP 101/57; RESP 18
--- NOTE | 2017-05-20 13:47 | PN ---
Date/Time of Note Date/Time of Note DATE: 05/20/17 TIME: 10:09 Assessment/Plan Lines/Catheters IV Catheter Type (from [facility]): Central Line Stubbs in Place (from [facility]): Yes Assessment/Plan Chief Complaint/Hosp Course 1. 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 11 x 9 cm, Partial cystectomy & bilateral ureteral stent placement; Path: Urachal cancer, intra-abdominal:Mucinous adenocarcinoma (path similar to previous bladder tumor); +bm, +flatus -onc f/u; tx -pain management: PO pain management with bowel regimen -soft diet today with protein shakes -OOB, increase ambulation -IS -UCHE dc'd -Patient may be discharged per urology and medical team. To follow up with us in office in 1-2 weeks. 2. Leukocytosis: reactive +/- infective; leukopenia -monitor -supportive 3.Episode of hypotension w tachycardia:currently BP stable -supportive -careful monitoring 4. Normocytic anemia: no acute bleed noted -monitor -transfuse as needed 5. History of urachal ca, recurrent; poss chemo -as above -per onc 6. UTI: multiorganism pathogens -abx per sensitivity 7. Hypoalbuminemia: likely nutritional -nutrition optimization as able 8. Right neck pruritus: poss dressing or antimicrobial cleanser related- improving Patient seen and examined in collaboration with Dr. Jonatan De Los Santos. Thank you. Problems: Subjective 24 Hr Interval Summary Continues to feel well. Continues to have bowel function. Tolerating solid diet. No dysuria, fevers, chills, sob, cough, n/v/d, cp, palpitations. Exam/Review of Systems Vital Signs Vitals Vital Signs Date Time Temp Pulse Resp B/P Pulse Ox O2 Delivery O2 Flow Rate FiO2 05/20/17 07:28 98.5 90 16 109/57 96 Intake and Output 05/19/17 05/19/17 05/20/17 15:00 23:00 07:00 Intake Total 100 ml 880 ml 240 ml Output Total 700 ml 100 ml Balance 100 ml 180 ml 140 ml Exam Free Text/Dictation Constitutional: alert, oriented, pleasant Psych: anxiety, no complaints Head: atraumatic, normocephalic Eyes: nl lids, nl sclera ENMT: mucosa pink and moist, nl nasal mucosa & septum, redness right neck skin under tegaderm; improved Neck: non-tender, supple; central line, Respiratory: clear to auscultation, normal air movement Cardiovascular: regular rate and rhythm, No edema Gastrointestinal: soft, min tender, surgical incision dry with maurizio, no periwound erythema/drainage, +bowel function : no dysuria, Musculoskeletal: nl extremities to inspection Extremities: normal pulses, No edema 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: nl mental status, nl speech, nl strength Lymph: No nl lymph nodes Results Result Diagram: 05/18/17 0858 05/18/17 0858 JENIFER CABAN NP May 20, 2017 11:06
--- NOTE | 2017-05-20 17:29 | DS ---
Date/Time of Note Date/Time of Note DATE: 05/20/17 TIME: 17:27 Discharge Summary Admission/Discharge Info Admit Date/Time Apr 23, 2017 at 20:40 Discharge Date/Time Discharge Diagnosis 1. 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 2. UTI. 3. Seizure disorder. 4. Rheumatoid arthritis. 5. Sjogren's syndrome. 6. History of brain tumor. 7. Normocytic, normochromic anemia. Most probably anemia chronic disease. Patient Condition: Stable Consults 1. Dr. Jonatan De Los Santos 2. Dr. Tyson Eid 3. [facility]. [facility] This is a 56 year old female with a history of infected pelvic mass s/p hysterectomy, oophorectomy, and omentectomy, history of severe rheumatoid arthritis, Sjorgren syndrome, osteoporosis, seizure disorder and reported brain tumor status post surgery who was initially seen by her PMD and had an MRI of her abdomen that showed a large diverticular abscess and was instructed to go to the ER for further evaluation. Patient also reports some abdominal pain. CT scan in the ER of the abdomen and pelvis did reconfirm large diverticular abscess in central pelvis. Patient was seen by oncologist for this issue. She was also seen by urologist and general surgeon. Patient did have complex hospitalization. She did receive transurethral resection of bladder tumor on April 29, 2017 and also had a cystoscopy with insertion of bilateral ureteral catheters along with partial cystectomy in May 05, 2017. Patient also had expiratory laparotomy with extensive lysis of adhesions and repair of colotomy; application of biologic over the colon repair and bladder repair on May 05, 2017. She did tolerate procedures well and we did resume her on physical therapy as well as analgesics for further management care. She was otherwise otherwise medically with antimicrobials for her UTI and regimen was conducted per ID consult. She was resumed on anticonvulsants for her seizure disorder and analgesics for her rheumatoid arthritis. During the course of stay she did improve. She did have period of time on TPN due to surgeon recommendations for bowel rest. We were gradually able to advance her diet she did tolerate well. I did discuss with the patient she was instructed for half-way facility placement and then follow-up with surgeon and urologist as outpatient as well as with oncologist. The plan of care was discussed with patient and patient did verbalize understanding. On the day of discharge patient was in stable condition Discussed plan of care with Dr. Guardado [facility] Active Scripts Tramadol HCl (Tramadol HCl) 50 Mg Tablet, 50 MG PO Q6H Y for PAIN LEVEL 4-7, # 30 TAB Prov:WALTER PINA 05/18/17 Reported Medications Sulfasalazine (Azulfidine) 500 Mg Tab, 500 MG PO QID for 30 Days, #120 TAB 04/23/17 Prednisone* (Prednisone*) 10 Mg Tab, 30 MG PO DAILY, TAB 04/23/17 Carbamazepine* (Carbamazepine* XR) 200 Mg Tab.er.12h, 500 MG PO TID, #60 TAB.SA 04/23/17 Multivitamins* (Once Daily*) 1 Tab Tablet, 1 TAB PO DAILY, TAB 05/21/15 Methotrexate* (Methotrexate*) 2.5 Mg Tab, 20 MG PO every 7 days, TAB Saturdays05/21/15 Simvastatin (Simvastatin) 40 Mg Tablet, 40 MG PO HS, TAB 05/21/15 Primidone* (Mysoline*) 250 Mg Tablet, 250 MG PO TID 01/24/13 Folic Acid* (Folic Acid*) 1 Mg Tablet, 1 MG PO DAILY 01/24/13 Calcium Carbonate/Vitamin D3 (Calcium Carb 500 Mg Tab Chew) 1 Tab.chew Tab.chew , PO BID 07/07/11 Discontinued Reported Medications Ibuprofen* (Ibuprofen*) 800 Mg Tab, 800 MG PO Q6H Y for PAIN, TAB 04/23/17 Discontinued Scripts Ciprofloxacin Hcl* (Ciprofloxacin Hcl*) 500 Mg Tablet, 500 MG PO BID for 14 Days , TAB Prov:KEVEN JOHNSON PA-C 03/23/17 Follow-up Plan CONDITION Patient Condition: Stable HOME CARE INSTRUCTIONS: Special Diet: soft diet FOLLOW UP/APPOINTMENTS Follow-up Plan 1. Follow up with Dr. Ruddy Crawley in 1 week 2. Follow up with Dr. Jonatan De Los Santos in 1 week 3. Follow up with Dr. Tyson Eid in 1 week Primary Care Provider Care Physician No Primary Time spent on discharge: > 30 minutes WALTER PINA May 20, 2017 17:29
== END 2017-05-20 18:20 | DRG 653 ==
LOC: E/R 11:51 → MS2 20:40 → UNDOADMIN 21:14 → MS2 04-26 14:30 → TEL 05-05 23:20 → ICU 05-06 01:17 → MS2 05-07 16:52
PROVIDERS: ADMIT Internal Medicine; ATTEND Internal Medicine
PROC: 0W9J3ZX Drainage of Pelvic Cavity, Percutaneous Approach, Diagnostic (ICD-10-PCS; 2017-04-28)
PROC: 0TBB8ZZ Excision of Bladder, Via Natural or Artificial Opening Endoscopic (ICD-10-PCS; 2017-04-29)
PROC: 0DN80ZZ Release Small Intestine, Open Approach (ICD-10-PCS; 2017-05-05)
PROC: 0T788DZ Dilation of Bilateral Ureters with Intraluminal Device, Via Natural or Artificial Opening Endoscopic (ICD-10-PCS; 2017-05-05)
PROC: 0T9880Z Drainage of Bilateral Ureters with Drainage Device, Via Natural or Artificial Opening Endoscopic (ICD-10-PCS; 2017-05-05)
PROC: 0TBB0ZZ Excision of Bladder, Open Approach (ICD-10-PCS; principal; 2017-05-05 18:00)
DX: C67.9 Malignant neoplasm of bladder, unspecified (principal); K65.1 Peritoneal abscess; R65.10 Systemic inflammatory response syndrome (SIRS) of non-infectious origin without acute organ dysfunction; I95.9 Hypotension, unspecified; C18.7 Malignant neoplasm of sigmoid colon; K63.0 Abscess of intestine; E87.1 Hypo-osmolality and hyponatremia; N39.0 Urinary tract infection, site not specified; D62 Acute posthemorrhagic anemia; N20.0 Calculus of kidney; E88.09 Other disorders of plasma-protein metabolism, not elsewhere classified; E83.42 Hypomagnesemia; M35.00 Sjogren syndrome, unspecified; M06.9 Rheumatoid arthritis, unspecified; M81.0 Age-related osteoporosis without current pathological fracture; M19.90 Unspecified osteoarthritis, unspecified site; K43.9 Ventral hernia without obstruction or gangrene; E87.6 Hypokalemia; G40.909 Epilepsy, unspecified, not intractable, without status epilepticus; D72.829 Elevated white blood cell count, unspecified; D63.8 Anemia in other chronic diseases classified elsewhere; D72.819 Decreased white blood cell count, unspecified; D64.9 Anemia, unspecified; B37.9 Candidiasis, unspecified; R19.7 Diarrhea, unspecified; R00.0 Tachycardia, unspecified; N94.89 Other specified conditions associated with female genital organs and menstrual cycle; L29.8 Other pruritus; I95.81 Postprocedural hypotension; Z85.53 Personal history of malignant neoplasm of renal pelvis; Z90.710 Acquired absence of both cervix and uterus; Z90.721 Acquired absence of ovaries, unilateral; Z90.49 Acquired absence of other specified parts of digestive tract; Z86.011 Personal history of benign neoplasm of the brain
CPT/HCPCS: 36415; 71010; 71260; 71275; 72194; 74177; 77012; 80048; 80053; 81001; 82270; 82378; 82533; 82728; 82947; 82962; 83540; 83605; 83735; 84100; 84134; 84478; 84484; 85014; 85018; 85025; 85378; 85610; 85730; 86301; 86304; 86305; 86850; 86900; 86901; 86920; 87040; 87070; 87075; 87081; 87086; 87205; 88305; 93005; 93306; 96374; 96375; 97110; 97116; 97161; 97530; J0131; J0690; J0696; J1100; J1170; J1200; J1335; J1450; J1650; J1885; J1953; J2175; J2250; J2270; J2370; J2405; J2543; J2710; J2765; J2920; J3010; J3475; J3480; J7030; J7040; J7042; J7070; J7999; Q4166; Q9967

== ENCOUNTER 2019-04-16 07:26 | Inpatient (IN) | payer OTHER ==
[~2019-04-16] VITALS: Ht 172.7 cm; Wt 72.3 kg
[~2019-04-16 07:26] MED LIST changes: -ACET-141 PO; +CALC-459 PO; +CARB200T43 PO; -CIPR500T4 PO; -ELEC100080 PO; +FENO67CA PO; -IBUP-1542 PO; +IBUP-1545 PO; -LOPE2CAP PO; +MULT-761 PO; -PHEN-537 PO; +PRED10TA PO; -PRED1TAB2 PO; +PRED2.5T3 PO; +SIMV40TA2 PO; +SULF500T45 PO; +SULF500T5 PO; +TRAM50TA2 PO; +VITA200C45 PO; -[UNRECOGNIZED DRUG - CODE] PO
[2019-04-16] MEDS ORDERED: LACTATED RINGER'S 1,000 ML IV STA (07:42)
[2019-04-16] MEDS ORDERED: SOD CHLORIDE 0.9% 1,000 ML IV STA (07:42)
--- NOTE | 2019-04-16 07:50 | ERD ---
ER Documentation Chief Complaint Chief Complaint TX FROM [facility] D/T FEVER & TACHYCARDIA HPI 58-year-old woman brought in by private ambulance from detention for fever x1 day. 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 She has had no cough, no chest pain or shortness of breath, no URI symptoms, no complaints of headache or blurry vision. HPI was limited supplemented by reviewing past medical history, detention records, and speaking to EMS ROS All systems reviewed and are negative except as per history of present illness. Medications Home Meds Reported Medications Calcium Carbonate (Calcium Carbonate) 500 Mg Tab.chew, 500 MG PO DAILY, TAB.CHEW 04/16/19 Vitamin E* (Vitamin E*) Unknown Strength Capsule, 1 CAP PO DAILY, CAP 04/16/19 Methotrexate* (Methotrexate*) 2.5 Mg Tab, 20 MG PO Q SAT, TAB 04/16/19 Multivitamin (MULTI VITAMIN DAILY) 1 Each Tablet, 1 TAB PO DAILY, TAB 04/16/19 Ibuprofen* (Ibuprofen*) 800 Mg Tab, 800 MG PO Q6H PRN for PAIN, TAB 04/16/19 Simvastatin* (Zocor*) 40 Mg Tablet, 40 MG PO QHS, #30 TAB 04/16/19 Fenofibrate, Micronized (Fenofibrate) 67 Mg Capsule, 67 MG PO DAILY, CAP 04/16/19 Folic Acid* (Folic Acid*) 1 Mg Tablet, 1 MG PO DAILY, TAB 04/16/19 Prednisone* (Prednisone*) 2.5 Mg Tablet, 2.5 MG PO TID, TAB 04/16/19 Sulfasalazine* (Sulfazine*) 500 Mg Tablet, 1000 MG PO BID, TAB 04/16/19 Primidone* (Mysoline*) 250 Mg Tablet, 250 MG PO TID, TAB 04/16/19 Carbamazepine* (Carbamazepine* XR) 200 Mg Tab.er.12h, 500 MG PO TID, #60 TAB.SA 04/16/19 Discontinued Reported Medications Sulfasalazine (Azulfidine) 500 Mg Tab, 500 MG PO QID for 30 Days, #120 TAB 04/23/17 Prednisone* (Prednisone*) 10 Mg Tab, 30 MG PO DAILY, TAB 04/23/17 Carbamazepine* (Carbamazepine* XR) 200 Mg Tab.er.12h, 500 MG PO TID, #60 TAB.SA 04/23/17 Multivitamins* (Once Daily*) 1 Tab Tablet, 1 TAB PO DAILY, TAB 05/21/15 Methotrexate* (Methotrexate*) 2.5 Mg Tab, 20 MG PO every 7 days, TAB Saturdays05/21/15 Simvastatin (Simvastatin) 40 Mg Tablet, 40 MG PO HS, TAB 05/21/15 Primidone* (Mysoline*) 250 Mg Tablet, 250 MG PO TID 01/24/13 Folic Acid* (Folic Acid*) 1 Mg Tablet, 1 MG PO DAILY 01/24/13 Calcium Carbonate/Vitamin D3 (Calcium Carb 500 Mg Tab Chew) 1 Tab.chew Tab.chew, PO BID 07/07/11 Discontinued Scripts Tramadol HCl (Tramadol HCl) 50 Mg Tablet, 50 MG PO Q6H PRN for PAIN LEVEL 4-7, #30 TAB Prov:WALTER PINA FIELD SPECIALIST 05/18/17 Allergies Allergies: Coded Allergies: No Known Drug Allergies (Verified Allergy, Unknown, 04/16/19) PMhx/Soc Mucinous adenocarcinoma, 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., History of brain tumor status post surgical resection, epilepsy, Sjogren's syndrome, arthritis, recurrent UTIs, diverting urostomy bag, anemia, osteoporosis, status post hysterectomy, gastrostomy tube History of Surgery: Yes (Gall bladder removal (2013), hysterectomy (2011), head sx (1986)) Anesthesia Reaction: No Hx 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 Disorder: No Hx Respiratory Disorders: No Hx Cardiac Disorders: No Hx Psychiatric Problems: No Hx Miscellaneous Medical Probl: Yes (sz,brain tumor s/p sx,RA,sjogren syndrome,RA,see H&P) Hx Alcohol Use: No Hx Substance Use: No Hx Tobacco Use: No FmHx Family History: No diabetes Physical Exam Vitals Vital Signs Date Temp Pulse Resp B/P (MAP) Pulse Ox O2 O2 Flow FiO2 Time Delivery Rate 04/16/19 101.0 09:16 04/16/19 101.5 119 20 106/58 89 07:31 (74) Physical Exam GENERAL: Well-developed, well-nourished, appears dehydrated, febrile HEENT: Dry mucous membranes, pink conjunctiva, no cervical spine tenderness or step-off deformities, no goiter, no jaundice or icterus, extraocular movements intact without pain. No submandibular induration, and no pharyngeal erythema CARDIAC: Tachycardic and regular no murmurs rubs or gallops LUNGS: Clear bilaterally no wheezing crackles or stridor ABDOMEN: Soft nontender, surgical scars, gastrostomy tube in place, colostomy ba g in place, no guarding or rigidity SKIN: Warm and dry to touch, no abrasions, contusions, or hematomas, no lacerations, no ecchymosis, no target lesions, and without ulcers EXTREMITIES: No clubbing cyanosis or edema, calves are bilaterally symmetrical, no Homans sign, no popliteal cord sign. Distal pulses equal and bilateral PSYCH: Normal affect without agitation or irritability Result Diagram: 04/16/19 0747 04/16/1947 Results 24 hrs Laboratory Tests Test 04/16/19 07:44 04/16/19 07:47 04/16/19 07:59 04/16/19 09:25 POC Venous 0.9 mmol/L Lactate White Blood Count 14.9 10^3/ul Red Blood Count 3.70 10^6/ul Hemoglobin 11.7 g/dl Hematocrit 37.5 % Mean Corpuscular 101.4 fl Volume Mean Corpuscular 31.6 pg Hemoglobin Mean Corpuscular 31.2 g/dl Hemoglobin Concen t Red Cell 14.6 % Distribution Width Platelet Count 315 10^3/UL Mean Platelet 10.0 fl Volume Immature 0.400 % Granulocytes % Neutrophils % 69.9 % Lymphocytes % 15.6 % Monocytes % 13.3 % Eosinophils % 0.5 % Basophils % 0.3 % Nucleated Red 0.0 /100WBC Blood Cells % Immature 0.060 10^3/ul Granulocytes # Neutrophils # 10.4 10^3/ul Lymphocytes # 2.3 10^3/ul Monocytes # 2.0 10^3/ul Eosinophils # 0.1 10^3/ul Basophils # 0.0 10^3/ul Nucleated Red 0.0 10^3/ul Blood Cells # Sodium Level 139 mmol/L Potassium Level 4.7 mmol/L Chloride Level 102 mmol/L Carbon Dioxide 33 mmol/L Level Anion Gap 4 Blood Urea 15 mg/dl Nitrogen Creatinine 0.41 mg/dl Est Glomerular > 60 mL/min Filtrat Rate mL/min Glucose Level 118 mg/dl Calcium Level 9.6 mg/dl Total Bilirubin 0.2 mg/dl Direct Bilirubin 0.00 mg/dl Indirect 0.2 mg/dl Bilirubin Aspartate Amino 28 IU/L Transf (AST/SGOT) Alanine 23 IU/L Aminotransferase (ALT/SGPT) Alkaline 159 IU/L Phosphatase Total Protein 7.2 g/dl Albumin 3.6 g/dl Globulin 3.60 g/dl Albumin/Globulin 1.00 Ratio Lipase 51 U/L Lactic Acid Level 1.4 mmol/L Urine Color YELLOW Urine Clarity SLIGHTLY CLOUDY Urine pH 7.0 Urine Specific 1.017 [place] Urine Ketones NEGATIVE mg/dL Urine Nitrite POSITIVE mg/dL Urine Bilirubin NEGATIVE mg/dL Urine NEGATIVE mg/dL Urobilinogen Urine Leukocyte 2+ Jessica/ul Esterase Urine Microscopic 53 /HPF RBC Urine Microscopic 95 /HPF WBC Urine Bacteria FEW /HPF Urine Mucus FEW /HPF Urine Hemoglobin 1+ mg/dL Urine Glucose NEGATIVE mg/dL Urine Total 2+ mg/dl Protein Current Medications Medications Dose Sig/Robin Start Time Status Last (Trade) Ordered Route PRN Stop Time Admin Dose Reason Admin Sodium 1,000 ml @ Q1H STAT 04/16/19 DC 04/16/19 Chloride 1,000 mls/hr IV 07:42 08:38 04/16/19 08:41 Lactated 1,000 ml @ Q1H STAT 04/16/19 DC 04/16/19 Ringer's 1,000 mls/hr IV 07:42 10:28 04/16/19 08:41 Ibuprofen 600 mg ONCE ONCE 04/16/19 DC 04/16/19 (Motrin) PO 08:00 09:16 04/16/19 08:01 Cefepime HCl 50 ml @ ONCE ONCE 04/16/19 DC 04/16/19 100 mls/hr IVPB 08:30 09:16 04/16/19 08:59 Procedures/MDM IV line was established patient was placed on ekg monitor tech rhythm strip revealed no complex tachycardia at 120 bpm with upright P and T waves. Patient was febrile, blood and urine cultures have been ordered results are pending I will follow-up. I ordered 1 L NS/LR each, ibuprofen 600 mg p.o., acetaminophen 1 g p.o. for fever, and cefepime 1 g IV Chest X-ray 1V Interpreted by me: Soft Tissue: No acute abnormalities Bones: No acute abnormalities Mediastinum/Cardiac Silhouette/Lungs: No acute abnormalities Lactic acid level was low, no sepsis. CBC revealed a leukocytosis of 15, electrolytes renal mild dehydration with a BUN/creatinine 15/0.4, liver function tests were normal, troponin was negative, urine analysis positive for infection. Patient will be admitted to [facility] setting for continued medical management and IV antibiotics Departure Diagnosis: Primary Impression: Fever Fever type: unspecified Qualified Codes: R50.9 - Fever, unspecified Additional Impressions: Complicated UTI (urinary tract infection) Mucinous adenocarcinoma Acute dehydration Condition: Fair SAMANTHA STANTON MD Apr 16, 2019 07:50
[2019-04-16] MEDS ORDERED: IBUPROFEN 600 MG TAB PO ONE (08:00)
[2019-04-16] MEDS ORDERED: CEFEPIME 1GM/50 ML (PMX) 50 ML IVPB ONE (08:30)
[2019-04-16] MEDS ORDERED: ACETAMINOPHEN 500 MG TAB PO STA (10:04)
[2019-04-16] MEDS: SOD CHLORIDE 0.9% 1,000 ML IV SCH ×2 (11:31→19:31)
[2019-04-16] MEDS ORDERED: IBUPROFEN 800 MG TAB PO PRN (12:00)
[2019-04-16] MEDS ORDERED: BISACODYL 10 MG SUPP PR PRN (12:00)
[2019-04-16] MEDS ORDERED: BISACODYL (EC) 5 MG TAB PO PRN (12:00)
[2019-04-16] MEDS ORDERED: SOD CHLORIDE 0.9% 500 ML IV ONE (12:00)
[2019-04-16] MEDS ORDERED: DOCUSATE SODIUM 100 MG CAP PO PRN (12:00)
[2019-04-16] MEDS ORDERED: OXYCODONE/ACETAMINOPHEN (5/325) TAB PO PRN (12:00)
[2019-04-16] MEDS ORDERED: ACETAMINOPHEN 650 MG SUPP PR PRN (12:00)
[2019-04-16] MEDS ORDERED: morphine 2 MG INJ IV PRN (12:00)
[2019-04-16] MEDS ORDERED: VANCOMYCIN IV PER PHARMACY XX SCH (12:00)
[2019-04-16] MEDS ORDERED: NACL 0.9% 3 ML SYG IV SCH (12:00)
[2019-04-16] MEDS ORDERED: VANCOMYCIN 1.5 GM/NS 250 ML 250 ML IVPB SCH (13:00)
[2019-04-16] MEDS ORDERED: carBAMAZepine (XR) 200 MG TABSR PO SCH (13:00)
[2019-04-16] MEDS: FAMOTIDINE 20 MG TAB PO SCH ×2 (13:06→20:53)
[2019-04-16] MEDS: PRIMIDONE 250 MG TAB PO SCH ×2 (13:07→20:53)
[2019-04-16] MEDS: FOLIC ACID 1 MG TAB PO SCH (13:08)
[2019-04-16] MEDS: carBAMAZepine (XR) 100 MG TABSR PO SCH ×2 (13:08→20:53)
[2019-04-16] MEDS: PIPER-TAZO 3.375 GM IV (PMX) 100 ML IVPB SCH ×2 (13:08→18:45)
[2019-04-16] MEDS: carBAMAZepine (XR) 200 MG TABSR PO SCH ×2 (13:08→20:53)
[2019-04-16 14:28] VITALS: Ht 172.7 cm; Wt 72.3 kg
[2019-04-16 14:48] VITALS: BP 111/57; PULSE 116; RESP 20
[2019-04-16] MEDS: predniSONE 2.5 MG TAB PO SCH ×2 (15:12→20:54)
[2019-04-16 18:38] VITALS: PULSE 130; RESP 32
[2019-04-16] MEDS: ACETAMINOPHEN 325 MG TAB PO PRN (18:44)
--- NOTE | 2019-04-16 19:45 | HP ---
Date/Time of Note Date/Time of Note DATE: 04/16/19 TIME: 19:36 Assessment/Plan VTE Prophylaxis Pharmacological prophylaxis: LMWH Lines/Catheters IV Catheter Type (from [facility]): Peripheral IV Urinary Cath still in place: No Assessment/Plan Hospital Course Chief complaint fatigue History of physical exam Fatigue of unknown duration. No known aggravating or relieving factors. Patient is probably bedbound with contractures. She has a fever and feels hot. Follows commands oriented to and March. Nausea but no vomiting. No hafsa abdominal pain dysuria or diarrhea. Denies any hafsa cough. No headache or light sensitivity. ER: Low blood pressure fever sinus rhythm or sinus tach Past medical history Pelvic cancer, sp surgery; low grade mucinous adenoca. Primary was never determined, felt to be of GI origin. s/p supracervical hysterectomy with BSO, om entectomy and appendectomy. Urachal cancer 2017 status post surgery here at [email or web address]. Malnutrition on tube feeds Rheumatoid arthritis Sjogren's syndrome Osteoporosis Seizure disorder, brain tumor which led to surgery in the remote past Surgical history See above social history Social history No active tobacco alcohol, resides at [facility] Family history Noncontributory Review of systems 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 system: No headache no loss speech vision Cardiovascular no chest pain no dyspnea no edema Lungs: No cough no wheezing positive fever Abdomen: Nausea no pain no diarrhea no dysuria Genitourinary: No dysuria or pain; positive fever Musculoskeletal: Gait dysfunction no rash no itching possible edema Constitutional: Fever chills no weight loss that I am aware of Endocrine: No previous diabetes thyroid dysfunction or dyslipidemia Antonio: No active hematochezia melena hematuria Psychiatry: Patient has a stable mood doubt any agitation anxiety depression Physical exam No pallor adenopathy droop warm nontender lymph nodes Regular no murmur of gallop possible tacky Clear no tachypnea Bowel sounds diminished nontender nondistended no RG colostomy C DI No edema mild tender lower extremities Assessment and plan Sirs suspected sepsis, intra-abdominal? Check CT continue antibiotics, stable consult ID Acute cystitis? Colostomy status History of cancer Rheumatoid arthritis chronic review medicines Result Diagram: 04/16/19 0747 04/16/19 0747 Results 24hrs Laboratory Tests Test 04/16/19 07:44 04/16/19 07:47 04/16/19 07:59 04/16/19 09:25 POC Venous 0.9 Lactate White Blood Count 14.9 #H Red Blood Count 3.70 L Hemoglobin 11.7 #L Hematocrit 37.5 # Mean Corpuscular 101.4 H Volume Mean Corpuscular 31.6 Hemoglobin Mean Corpuscular 31.2 L Hemoglobin Concen t Red Cell 14.6 H Distribution Width Platelet Count 315 Mean Platelet 10.0 Volume Immature 0.400 Granulocytes % Neutrophils % 69.9 Lymphocytes % 15.6 Monocytes % 13.3 H Eosinophils % 0.5 Basophils % 0.3 Nucleated Red 0.0 Blood Cells % Immature 0.060 H Granulocytes # Neutrophils # 10.4 H Lymphocytes # 2.3 Monocytes # 2.0 H Eosinophils # 0.1 Basophils # 0.0 Nucleated Red 0.0 Blood Cells # Sodium Level 139 Potassium Level 4.7 Chloride Level 102 Carbon Dioxide 33 H Level Anion Gap 4 L Blood Urea 15 Nitrogen Creatinine 0.41 L Est Glomerular > 60 Filtrat Rate mL/min Glucose Level 118 Calcium Level 9.6 Total Bilirubin 0.2 Direct Bilirubin 0.00 Indirect 0.2 Bilirubin Aspartate Amino 28 Transf (AST/SGOT) Alanine 23 Aminotransferase (ALT/SGPT) Alkaline 159 H Phosphatase Total Protein 7.2 Albumin 3.6 Globulin 3.60 H Albumin/Globulin 1.00 Ratio Lipase 51 Lactic Acid Level 1.4 Urine Color YELLOW Urine Clarity SLIGHTLY CLOUDY A Urine pH 7.0 Urine Specific 1.017 [place] Urine Ketones NEGATIVE Urine Nitrite POSITIVE A Urine Bilirubin NEGATIVE Urine NEGATIVE Urobilinogen Urine Leukocyte 2+ H Esterase Urine Microscopic 53 H RBC Urine Microscopic 95 H WBC Urine Bacteria FEW A Urine Mucus FEW A Urine Hemoglobin 1+ H Urine Glucose NEGATIVE Urine Total 2+ H Protein Test 04/16/19 09:51 04/16/19 11:36 Lactic Acid Level 1.0 0.9 HPI/ROS Admit Date/Time Admit Date/Time Apr 16, 2019 at 09:31 PMH/Family/Social Past Medical History Medications Current Medications Folic Acid (Folic Acid) 1 mg DAILY PO Last administered on 04/16/19at 13:08; Admin Dose 1 MG; Start 04/16/19 at 12:00 Ibuprofen (Motrin) 800 mg Q6H PRN PO PAIN; Start 04/16/19 at 12:00 Prednisone (Prednisone) 2.5 mg TID PO Last administered on 04/16/19at 15:12; Admin Dose 2.5 MG; Start 04/16/19 at 13:00 Primidone (Mysoline) 250 mg TID PO Last administered on 04/16/19at 13:07; Admin Dose 250 MG; Start 04/16/19 at 13:00 Sulfasalazine (Azulfidine) 1,000 mg BID PO ; Start 04/16/19 at 21:00 Atorvastatin Calcium (Lipitor) 20 mg DAILY@21 PO ; Start 04/16/19 at 21:00 Sodium Chloride 1,000 ml @ 125 mls/hr Q8H IV Last administered on 04/16/19at 11:31; Admin Dose 125 MLS/HR; Start 04/16/19 at 11:31 IV Flush (NS 3 ml) 3 ml PER PROTOCOL IV ; Start 04/16/19 at 12:00 Ondansetron HCl (Zofran Inj) 4 mg Q6H PRN IV NAUSEA/VOMITING; Start 04/16/19 at 12:00 Acetaminophen (Tylenol Tab) 650 mg Q6H PRN PO .PAIN 1-3 OR TEMP Last administered on 04/16/19at 18:44; Admin Dose 650 MG; Start 04/16/19 at 12:00 Acetaminophen (Tylenol Supp) 650 mg Q6H PRN [place] .PAIN 1-3 OR TEMP; Start 04/16/19 at 12:00 Oxycodone/ Acetaminophen (Percocet (5/ 325)) 1 tab Q6H PRN PO .MOD PAIN 4-6; Start 04/16/19 at 12:00 Morphine Sulfate (morphine) 2 mg Q4H PRN IV .SEVERE PAIN 7-10; Start 04/16/19 at 12:00 Docusate Sodium (Colace) 100 mg Q12H PRN PO .CONSTIPATION; Start 04/16/19 at 12:00 Bisacodyl (Dulcolax) 5 mg DAILY PRN PO .CONSTIPATION; Start 04/16/19 at 12:00 Bisacodyl (Dulcolax Supp) 10 mg DAILY PRN [place] .CONSTIPATION; Start 04/16/19 at 12:00 Famotidine (Pepcid) 20 mg Q12 PO Last administered on 04/16/19at 13:06; Admin Dose 20 MG; Start 04/16/19 at 12:00 Enoxaparin Sodium (Lovenox) 30 mg DAILY SC ; Start 04/17/19 at 09:00 Vancomycin HCl (Vanco Iv Per Pharmacy) VANCOMYCIN PER PHARMACY PER PROTOCOL XX ; Start 04/16/19 at 12:00 Piperacillin Sod/ Tazobactam Sod 100 ml @ 200 mls/hr Q6 IVPB Last administered on 04/16/19at 18:45; Admin Dose 200 MLS/HR; Start 04/16/19 at 12:00 Carbamazepine (Tegretol Xr) 400 mg TID PO Last administered on 04/16/19at 13:08; Admin Dose 400 MG; Start 04/16/19 at 13:00 Carbamazepine (Tegretol Xr) 100 mg TID PO Last administered on 04/16/19at 13:08; Admin Dose 100 MG; Start 04/16/19 at 13:00 Vancomycin HCl 250 ml @ 125 mls/hr Q12H IVPB ; Start 04/17/19 at 01:00 Coded Allergies: No Known Drug Allergies (Verified Allergy, Unknown, 04/16/19) Past Surgical History Past Surgical Hx: appendectomy, cholecystectomy, other Family History Significant Family History: no pertinent family hx Social History Smoking Status: Never smoker Exam/Review of Systems Vital Signs Vitals Vital Signs Date Temp Pulse Resp B/P (MAP) Pulse Ox O2 O2 Flow FiO2 Time Delivery Rate 04/16/19 101.0 18:44 04/16/19 130 32 18:38 04/16/19 111/57 92 Room Air 14:48 (75) 04/16/19 2.0 13:27 LILA ARELLANO MD Apr 16, 2019 19:45
[2019-04-16 20:03] VITALS: BP 131/60; PULSE 131; RESP 20
[2019-04-16] MEDS: SULFASALAZINE 500 MG TAB PO SCH (20:54)
[2019-04-16] MEDS: ATORVASTATIN 20 MG TAB PO SCH (20:54)
[2019-04-16 23:55] VITALS: BP 143/63; PULSE 115; RESP 19
[2019-04-17] MEDS: PIPER-TAZO 3.375 GM IV (PMX) 100 ML IVPB SCH ×4 (00:07→18:38)
[2019-04-17] MEDS: VANCOMYCIN 1 GM in 250 ML IVPB SCH ×2 (00:41→14:02)
[2019-04-17 03:56] VITALS: BP 121/62; PULSE 120; RESP 18
[2019-04-17] MEDS: ACETAMINOPHEN 325 MG TAB PO PRN (04:03)
[2019-04-17] MEDS: SOD CHLORIDE 0.9% 1,000 ML IV SCH ×3 (05:26→22:42)
[2019-04-17 07:39] VITALS: BP 118/66; PULSE 115; RESP 17
[2019-04-17] MEDS: SULFASALAZINE 500 MG TAB PO SCH ×2 (08:59→21:15)
[2019-04-17] MEDS: FOLIC ACID 1 MG TAB PO SCH (09:00)
[2019-04-17] MEDS ORDERED: ENOXAPARIN 30 MG/0.3 ML SYG SC SCH (09:00)
[2019-04-17] MEDS: carBAMAZepine (XR) 100 MG TABSR PO SCH ×3 (09:00→21:00)
[2019-04-17] MEDS: predniSONE 2.5 MG TAB PO SCH ×3 (09:00→21:00)
[2019-04-17] MEDS: PRIMIDONE 250 MG TAB PO SCH ×3 (09:00→20:59)
[2019-04-17] MEDS: carBAMAZepine (XR) 200 MG TABSR PO SCH ×3 (09:00→21:00)
[2019-04-17] MEDS: FAMOTIDINE 20 MG TAB PO SCH (09:00)
[2019-04-17 11:41] VITALS: BP 134/63; PULSE 114; RESP 19
--- NOTE | 2019-04-17 13:37 | PN ---
Date/Time of Note Date/Time of Note DATE: 04/17/19 TIME: 13:32 Assessment/Plan VTE Prophylaxis Risk score (from Nsg)>0 risk: 8 SCD applied (from Nsg): Yes SCD contraindicated: low risk/ambulating Pharmacological prophylaxis: LMWH Lines/Catheters IV Catheter Type (from Nrsg): Peripheral IV Urinary Cath still in place: No Assessment/Plan Hospital Course Assessment and plan Sirs suspected sepsis, intra-abdl? stable consulted ID Acute cystitis? Complicated cystitis may need urology assistance Colostomy status History of cancer/ Urachal cancer 2017 spt surgery here at [facility]. Pelvic cancer, sp surgery; low grade mucinous adenoca. Primary was never determined, felt to be of GI origin. s/p supracervical hysterectomy with BSO, omentectomy and appendectomy. Rheumatoid arthritis chronic, review medicines/ hold dmards Malnutrition on tube feeds Sjogren's syndrome Osteoporosis Seizure disorder. brain tumor which led to surgery in the remote past Subclinical hyperthyroidism Failure to thrive S: Mod pain. Less fever no nausea vomiting. Started tube feeds. Patient & son requested to continue DNR. Needs polst done. No diarrhea O:vss PE No pallor Reg no mrg Clear Bs diminished nt nd no RRG colostomy; urostomy; peg c/d/i No edema mild tender lwr ext Result Diagram: 04/17/19 0550 04/17/19 0550 Results 24hrs Laboratory Tests Test 04/17/19 05:50 White Blood Count 11.2 #H Red Blood Count 3.03 L Hemoglobin 9.7 L Hematocrit 30.7 L Mean Corpuscular Volume 101.3 H Mean Corpuscular Hemoglobin 32.0 Mean Corpuscular Hemoglobin Concent 31.6 L Red Cell Distribution Width 14.5 Platelet Count 271 Mean Platelet Volume 9.8 Immature Granulocytes % 0.600 H Neutrophils % 73.2 Lymphocytes % 14.4 L Monocytes % 10.4 Eosinophils % 1.0 Basophils % 0.4 Nucleated Red Blood Cells % 0.0 Immature Granulocytes # 0.070 H Neutrophils # 8.2 H Lymphocytes # 1.6 Monocytes # 1.2 H Eosinophils # 0.1 Basophils # 0.0 Nucleated Red Blood Cells # 0.0 Prothrombin Time 14.6 Prothrombin Time Ratio 1.1 INR International Normalized Ratio 1.13 Sodium Level 142 Potassium Level 3.0 L Chloride Level 110 Carbon Dioxide Level 27 Anion Gap 5 Blood Urea Nitrogen 8 Creatinine 0.29 L Est Glomerular Filtrat Rate mL/min > 60 Glucose Level 141 Hemoglobin A1c 4.7 Calcium Level 8.7 Phosphorus Level 2.5 Magnesium Level 1.8 Total Bilirubin 0.1 L Direct Bilirubin 0.00 Indirect Bilirubin 0.1 Aspartate Amino Transf (AST/SGOT) 22 Alanine Aminotransferase (ALT/SGPT) 16 Alkaline Phosphatase 144 H Total Protein 6.0 #L Albumin 2.8 L Globulin 3.20 Albumin/Globulin Ratio 0.87 Thyroid Stimulating Hormone (TSH) 0.337 L Exam/Review of Systems Exam Vitals Vital Signs Date Temp Pulse Resp B/P (MAP) Pulse Ox O2 O2 Flow FiO2 Time Delivery Rate 04/17/19 98.8 114 19 134/63 96 11:41 (86) 04/16/19 Room Air 20:03 04/16/19 2.0 13:27 Intake and Output 04/16/19 04/16/19 04/17/19 1515:00 23:00 07:00 IntakeIntake Total 350 ml 400 ml OutputOutput Total 800 ml 1700 ml BalanceBalance -450 ml -1300 ml Results Results 24hrs Laboratory Tests Test 04/17/19 05:50 White Blood Count 11.2 #H Red Blood Count 3.03 L Hemoglobin 9.7 L Hematocrit 30.7 L Mean Corpuscular Volume 101.3 H Mean Corpuscular Hemoglobin 32.0 Mean Corpuscular Hemoglobin Concent 31.6 L Red Cell Distribution Width 14.5 Platelet Count 271 Mean Platelet Volume 9.8 Immature Granulocytes % 0.600 H Neutrophils % 73.2 Lymphocytes % 14.4 L Monocytes % 10.4 Eosinophils % 1.0 Basophils % 0.4 Nucleated Red Blood Cells % 0.0 Immature Granulocytes # 0.070 H Neutrophils # 8.2 H Lymphocytes # 1.6 Monocytes # 1.2 H Eosinophils # 0.1 Basophils # 0.0 Nucleated Red Blood Cells # 0.0 Prothrombin Time 14.6 Prothrombin Time Ratio 1.1 INR International Normalized Ratio 1.13 Sodium Level 142 Potassium Level 3.0 L Chloride Level 110 Carbon Dioxide Level 27 Anion Gap 5 Blood Urea Nitrogen 8 Creatinine 0.29 L Est Glomerular Filtrat Rate mL/min > 60 Glucose Level 141 Hemoglobin A1c 4.7 Calcium Level 8.7 Phosphorus Level 2.5 Magnesium Level 1.8 Total Bilirubin 0.1 L Direct Bilirubin 0.00 Indirect Bilirubin 0.1 Aspartate Amino Transf (AST/SGOT) 22 Alanine Aminotransferase (ALT/SGPT) 16 Alkaline Phosphatase 144 H Total Protein 6.0 #L Albumin 2.8 L Globulin 3.20 Albumin/Globulin Ratio 0.87 Thyroid Stimulating Hormone (TSH) 0.337 L Medications Medication Current Medications Folic Acid (Folic Acid) 1 mg DAILY PO Last administered on 04/17/19 09:00; Admin Dose 1 MG; Start 04/16/19 at 12:00 Ibuprofen (Motrin) 800 mg Q6H PRN PO PAIN; Start 04/16/19 at 12:00 Prednisone (Prednisone) 2.5 mg TID PO Last administered on 04/17/19 09:00; Admin Dose 2.5 MG; Start 04/16/19 at 13:00 Primidone (Mysoline) 250 mg TID PO Last administered on 04/17/19 09:00; Admin Dose 250 MG; Start 04/16/19 at 13:00 Sulfasalazine (Azulfidine) 1,000 mg BID PO Last administered on 04/17/19at 08:59; Admin Dose 1,000 MG; Start 04/16/19 at 21:00 Atorvastatin Calcium (Lipitor) 20 mg DAILY@21 PO Last administered on 04/16/19at 20:54; Admin Dose 20 MG; Start 04/16/19 at 21:00 Sodium Chloride 1,000 ml @ 125 mls/hr Q8H IV Last administered on 04/17/19at 05:26; Admin Dose 125 MLS/HR; Start 04/16/19 at 11:31 IV Flush (NS 3 ml) 3 ml PER PROTOCOL IV ; Start 04/16/19 at 12:00 Ondansetron HCl (Zofran Inj) 4 mg Q6H PRN IV NAUSEA/VOMITING; Start 04/16/19 at 12:00 Acetaminophen (Tylenol Tab) 650 mg Q6H PRN PO .PAIN 1-3 OR TEMP Last administered on 04/17/19at 04:03; Admin Dose 650 MG; Start 04/16/19 at 12:00 Acetaminophen (Tylenol Supp) 650 mg Q6H PRN [place] .PAIN 1-3 OR TEMP; Start 04/16/19 at 12:00 Oxycodone/ Acetaminophen (Percocet (5/ 325)) 1 tab Q6H PRN PO .MOD PAIN 4-6 Last administered on 04/17/19 09:20; Admin Dose 1 TAB; Start 04/16/19 at 12:00 Morphine Sulfate (morphine) 2 mg Q4H PRN IV .SEVERE PAIN 7-10 Last administered on 04/17/19 11:56; Admin Dose 2 MG; Start 04/16/19 at 12:00 Docusate Sodium (Colace) 100 mg Q12H PRN PO .CONSTIPATION; Start 04/16/19 at 12:00 Bisacodyl (Dulcolax) 5 mg DAILY PRN PO .CONSTIPATION; Start 04/16/19 at 12:00 Bisacodyl (Dulcolax Supp) 10 mg DAILY PRN [place] .CONSTIPATION; Start 04/16/19 at 12:00 Famotidine (Pepcid) 20 mg Q12 PO Last administered on 04/17/19 09:00; Admin Dose 20 MG; Start 04/16/19 at 12:00 Enoxaparin Sodium (Lovenox) 30 mg DAILY SC Last administered on 04/17/19 09:14; Admin Dose 30 MG; Start 04/17/19 at 09:00 Vancomycin HCl (Vanco Iv Per Pharmacy) VANCOMYCIN PER PHARMACY PER PROTOCOL XX ; Start 04/16/19 at 12:00 Piperacillin Sod/ Tazobactam Sod 100 ml @ 200 mls/hr Q6 IVPB Last administered on 04/17/19 11:56; Admin Dose 200 MLS/HR; Start 04/16/19 at 12:00 Carbamazepine (Tegretol Xr) 400 mg TID PO Last administered on 04/17/19 09:00; Admin Dose 400 MG; Start 04/16/19 at 13:00 Carbamazepine (Tegretol Xr) 100 mg TID PO Last administered on 04/17/19 09:00; Admin Dose 100 MG; Start 04/16/19 at 13:00 Vancomycin HCl 250 ml @ 125 mls/hr Q12H IVPB Last administered on 04/17/19 00:41; Admin Dose 125 MLS/HR; Start 04/17/19 at 01:00 Calcium Carbonate (Oyster Shell Calcium) 1.25 gm DAILY PO ; Start 04/18/19 at 09:00 LILA ARELLANO MD 28, 2019 13:37
--- NOTE | 2019-04-17 15:09 | CONS ---
DATE OF ADMISSION: 04/16/2019 DATE OF CONSULTATION: 04/17/2019 TYPE OF CONSULTATION: Infectious Disease. REASON FOR CONSULTATION: Antibiotic management. HISTORY OF PRESENT ILLNESS: Martha Santana is a 58-year-old female who was brought in by [facility] [employer] ambulance from a care home for fever of 1 day's duration. The patient has multiple medical problems including mucinous adenocarcinoma and a pelvic mass. She had no cough, chest pain or short ness of breath. She had no headaches or blurry vision. 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 She has a history of brain tumor, status post surgical resection. She has a history of epi lepsy, Sjogren syndrome, arthritis, recurrent UTIs, diverting ureterostomy bag, anemia, osteoporosis. PAST SURGICAL HISTORY: Status post hysterectomy and status post gastrostomy tube. Other surgeries include status post cholecystectomy in 2013. As noted, she had a hysterectomy and she had hip surger y in 1986. PAST MEDICAL HISTORY: As outlined. FAMILY HISTORY: Noncontributory. SOCIAL HISTORY: She does not smoke, drink or abuse drugs. ALLERGIES: NONE TO PENICILLIN, SULFA OR FOODS. MEDICATIONS: Per chart. 1. The patient is taking multiple medications including Azulfidine 2. Prednisone. 3. Methotrexate. 4. She is taking Simvastatin for hyperlipidemia. 5. She is taking Mysoline or primidone for seizures and carbamazepine. As noted numerous medications. REVIEW OF SYSTEMS: Noncontributory. PHYSICAL EXAMINATION: GENERAL: The patient is well-developed, well-nourished female. VITAL SIGNS: Febrile to 101.5, in no acute distress. Pulse of 119. SKIN: Without generalized rash. HEENT: Within normal limits. NECK: Supple. LYMPH NODES: None palpable. CHEST: Decreased breath sounds at the bases. HEART: Tachycardic, regular rhythm. ABDOMEN: Soft and nontender. Gastrostomy tube in place. Colostomy bag in place for urostomy withou t organosplenomegaly or masses. EXTREMITIES: Without cyanosis, clubbing, or edema. RECTAL AND GENITAL: Deferred. NEUROLOGIC: No focal neurological abnormalities. ANCILLARY LABORATORY DATA: Her white count is 14.9 with 70% neutrophils, H and H 11.7 and 37.5. She has a platelet count of 315,000. BUN and creatinine is 15/0.41, CO2 is 33 and her glucose is 118. Urinalysis shows 2+ leukocyte esterase and 95 white cells per high powered field consistent with urin rafa tract infection. The patient was begun on cefepime. Blood and urine cultures were ordered. Chest x-ray shows no acut e abnormality. She has a complicated urinary tract infection, mucinous adenocarcinoma. She is also dehydrated. Patient is very fatigued, bedbound with contractures. We will continue her on her curre nt regimen. I will dictate my findings to the hospitalist, to Dr. Arellano. Dictated By: AUGUSTO WILLIAM MD, JD/NTS Conf#: [id number] DID#: [id number] CC: LILA ARELLANO MD;*[facility]*
[2019-04-17] MEDS: morphine 4 MG/ML VIAL IV PRN ×3 (15:30→22:12)
[2019-04-17] MEDS: POTASSIUM CHLORIDE 20 MEQ POWDER FOR ORAL SOLN PO SCH ×2 (15:30→20:59)
[2019-04-17 15:52] VITALS: BP 157/69; PULSE 120; PULSE 86; RESP 19
[2019-04-17 19:34] VITALS: BP 132/60; PULSE 119; RESP 21
[2019-04-17] MEDS: ONDANSETRON 4 MG INJ IV PRN (19:44)
[2019-04-17] MEDS: ATORVASTATIN 20 MG TAB PO SCH (20:59)
[2019-04-17] MEDS: LACTOBACILLUS RHAMNOSUS CAP PO SCH (21:00)
[2019-04-17 23:37] VITALS: BP 141/63; PULSE 121; RESP 17
[2019-04-18] MEDS: PIPER-TAZO 3.375 GM IV (PMX) 100 ML IVPB SCH ×5 (00:56→23:13)
[2019-04-18] MEDS: OXYCODONE/ACETAMINOPHEN (10/325) TAB PO PRN ×2 (00:57→23:13)
[2019-04-18] MEDS: VANCOMYCIN 1 GM in 250 ML IVPB SCH ×2 (02:42→12:32)
[2019-04-18 03:54] VITALS: BP 137/71; PULSE 110; RESP 18
[2019-04-18] MEDS: morphine 4 MG/ML VIAL IV PRN ×3 (06:02→18:58)
[2019-04-18 07:10] VITALS: BP 100/53; PULSE 104; RESP 17
[2019-04-18] MEDS: CALCIUM CARBONATE 1.25 GM TAB PO SCH (08:46)
[2019-04-18] MEDS: PRIMIDONE 250 MG TAB PO SCH ×3 (08:46→20:40)
[2019-04-18] MEDS: carBAMAZepine (XR) 200 MG TABSR PO SCH ×3 (08:47→20:34)
[2019-04-18] MEDS: FAMOTIDINE 20 MG TAB PO SCH (08:47)
[2019-04-18] MEDS: SULFASALAZINE 500 MG TAB PO SCH ×2 (08:47→20:40)
[2019-04-18] MEDS: carBAMAZepine (XR) 100 MG TABSR PO SCH ×3 (08:47→20:34)
[2019-04-18] MEDS: FOLIC ACID 1 MG TAB PO SCH (08:47)
[2019-04-18] MEDS: predniSONE 2.5 MG TAB PO SCH ×3 (08:48→20:35)
[2019-04-18] MEDS: LACTOBACILLUS RHAMNOSUS CAP PO SCH ×2 (08:48→20:34)
[2019-04-18] MEDS: POTASSIUM CHLORIDE 20 MEQ POWDER FOR ORAL SOLN PO SCH ×2 (08:48→20:34)
[2019-04-18] MEDS: ENOXAPARIN 40 MG/0.4 ML SYG SC SCH (08:59)
--- NOTE | 2019-04-18 11:06 | PN ---
Date/Time of Note Date/Time of Note DATE: 04/18/19 TIME: 10:51 Assessment/Plan VTE Prophylaxis Risk score (from Ns)>0 risk: 4 SCD applied (from Ns): No SCD contraindicated: other Pharmacological prophylaxis: LMWH Lines/Catheters IV Catheter Type (from Nrs): Peripheral IV Urinary Cath still in place: No Assessment/Plan Hospital Course S: Per nursing staff, patient tolerated diet fed earlier this morning. No fevers noted overnight. O: vs - see below PE No pallor Reg no mrg Clear Bs diminished nt nd no RRG colostomy; urostomy; peg c/d/i No edema mild tender lwr ext Assessment and plan: 58-year-old female who presents with: # SIRS - suspected sepsis-likely secondary to acute cystitis versus complicated cystitis. Slowly improving. Urine culture positive for 2 different bacterial growth including Pseudomonas. Of note, patient also colostomy status post in the past. Patient has bilateral nephrostomy tubes in place as well. -Monitor WBC which is trending down, Tylenol. Pain fevers -Continue current broad-spectrum antibiotics, follow-up ID recommendations and final culture results -We will try to obtain medical records from [facility] as patient apparently had a surgery there, abdominal in nature, in November 2018. 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 Primary was never determined, felt to be of GI origin. s/p supracervical hysterectomy with BSO, omentectomy and appendectomy in 2017 -Monitor for now # Rheumatoid arthritis - chronic -Monitor, review medicines/ holding dmards for now # Malnutrition/Failure to thrive-presently on tube feeds # Sjogren's syndrome: Monitor # Osteoporosis: Monitor -We will also obtain PT and OT consults # Seizure disorder-likely secondary to brain tumor which led to surgery in the remote past -Monitor, continue Tegretol and Mysoline # Subclinical hyperthyroidism: Free T4 level normal -Monitor for now Result Diagram: 04/18/19 0445 04/18/19 0445 Results 24hrs Laboratory Tests Test 04/18/19 00:29 04/18/19 04:45 Vancomycin Level Trough 11.2 White Blood Count 6.7 # Red Blood Count 2.92 L Hemoglobin 9.3 L Hematocrit 30.0 L Mean Corpuscular Volume 102.7 H Mean Corpuscular Hemoglobin 31.8 Mean Corpuscular Hemoglobin Concent 31.0 L Red Cell Distribution Width 14.4 Platelet Count 268 Mean Platelet Volume 10.1 Immature Granulocytes % 0.600 H Neutrophils % 64.1 Lymphocytes % 21.7 Monocytes % 11.1 H Eosinophils % 2.2 Basophils % 0.3 Nucleated Red Blood Cells % 0.0 Immature Granulocytes # 0.040 H Neutrophils # 4.3 Lymphocytes # 1.5 Monocytes # 0.7 Eosinophils # 0.2 Basophils # 0.0 Nucleated Red Blood Cells # 0.0 Sodium Level 140 Potassium Level 4.2 Chloride Level 107 Carbon Dioxide Level 30 Anion Gap 3 L Blood Urea Nitrogen 7 Creatinine 0.30 L Est Glomerular Filtrat Rate mL/min > 60 Glucose Level 114 Calcium Level 8.6 Vitamin B12 Level 497 Folate > 20.0 H Free Thyroxine 1.58 Total Triiodothyronine 0.97 Exam/Review of Systems Exam Vitals Vital Signs Date Temp Pulse Resp B/P (MAP) Pulse Ox O2 O2 Flow FiO2 Time Delivery Rate 04/18/19 98.2 104 17 100/53 96 07:10 (69) 04/16/19 Room Air 20:03 04/16/19 2.0 13:27 Intake and Output 04/17/19 04/17/19 04/18/19 1515:00 23:00 07:00 IntakeIntake Total 580 ml 1750 ml 1550 ml OutputOutput Total 2 ml 1700 ml 950 ml BalanceBalance 578 ml 50 ml 600 ml Results Results 24hrs Laboratory Tests Test 04/18/19 00:29 04/18/19 04:45 Vancomycin Level Trough 11.2 White Blood Count 6.7 # Red Blood Count 2.92 L Hemoglobin 9.3 L Hematocrit 30.0 L Mean Corpuscular Volume 102.7 H Mean Corpuscular Hemoglobin 31.8 Mean Corpuscular Hemoglobin Concent 31.0 L Red Cell Distribution Width 14.4 Platelet Count 268 Mean Platelet Volume 10.1 Immature Granulocytes % 0.600 H Neutrophils % 64.1 Lymphocytes % 21.7 Monocytes % 11.1 H Eosinophils % 2.2 Basophils % 0.3 Nucleated Red Blood Cells % 0.0 Immature Granulocytes # 0.040 H Neutrophils # 4.3 Lymphocytes # 1.5 Monocytes # 0.7 Eosinophils # 0.2 Basophils # 0.0 Nucleated Red Blood Cells # 0.0 Sodium Level 140 Potassium Level 4.2 Chloride Level 107 Carbon Dioxide Level 30 Anion Gap 3 L Blood Urea Nitrogen 7 Creatinine 0.30 L Est Glomerular Filtrat Rate mL/min > 60 Glucose Level 114 Calcium Level 8.6 Vitamin B12 Level 497 Folate > 20.0 H Free Thyroxine 1.58 Total Triiodothyronine 0.97 Medications Medication Current Medications Folic Acid (Folic Acid) 1 mg DAILY PO Last administered on 04/18/19 08:47; Admin Dose 1 MG; Start 04/16/19 at 12:00 Ibuprofen (Motrin) 800 mg Q6H PRN PO PAIN; Start 04/16/19 at 12:00 Prednisone (Prednisone) 2.5 mg TID PO Last administered on 04/18/19 08:48; Admin Dose 2.5 MG; Start 04/16/19 at 13:00 Primidone (Mysoline) 250 mg TID PO Last administered on 04/18/19 08:46; Admin Dose 250 MG; Start 04/16/19 at 13:00 Sulfasalazine (Azulfidine) 1,000 mg BID PO Last administered on 04/18/19 08:47; Admin Dose 1,000 MG; Start 04/16/19 at 21:00 Atorvastatin Calcium (Lipitor) 20 mg DAILY@21 PO Last administered on 04/17/19 20:59; Admin Dose 20 MG; Start 04/16/19 at 21:00 Sodium Chloride 1,000 ml @ 75 mls/hr [id number] IV Last administered on 04/17/19 22:42; Admin Dose 75 MLS/HR; Start 04/16/19 at 11:31 IV Flush (NS 3 ml) 3 ml PER PROTOCOL IV ; Start 04/16/19 at 12:00 Ondansetron HCl (Zofran Inj) 4 mg Q6H PRN IV NAUSEA/VOMITING Last administered on 04/17/19 19:44; Admin Dose 4 MG; Start 04/16/19 at 12:00 Acetaminophen (Tylenol Tab) 650 mg Q6H PRN PO .PAIN 1-3 OR TEMP Last administered on 04/17/19 04:03; Admin Dose 650 MG; Start 04/16/19 at 12:00 Acetaminophen (Tylenol Supp) 650 mg Q6H PRN [place] .PAIN 1-3 OR TEMP; Start 04/16/19 at 12:00 Docusate Sodium (Colace) 100 mg Q12H PRN PO .CONSTIPATION; Start 04/16/19 at 12:00 Bisacodyl (Dulcolax) 5 mg DAILY PRN PO .CONSTIPATION; Start 04/16/19 at 12:00 Bisacodyl (Dulcolax Supp) 10 mg DAILY PRN [place] .CONSTIPATION; Start 04/16/19 at 12:00 Vancomycin HCl (Vanco Iv Per Pharmacy) VANCOMYCIN PER PHARMACY PER PROTOCOL XX ; Start 04/16/19 at 12:00 Piperacillin Sod/ Tazobactam Sod 100 ml @ 200 mls/hr Q6 IVPB Last administered on 04/18/19 06:02; Admin Dose 200 MLS/HR; Start 04/16/19 at 12:00 Carbamazepine (Tegretol Xr) 400 mg TID PO Last administered on 04/18/19 08:47; Admin Dose 400 MG; Start 04/16/19 at 13:00 Carbamazepine (Tegretol Xr) 100 mg TID PO Last administered on 04/18/19 08:47; Admin Dose 100 MG; Start 04/16/19 at 13:00 Vancomycin HCl 250 ml @ 125 mls/hr Q12H IVPB Last administered on 04/18/19 02:42; Admin Dose 125 MLS/HR; Start 04/17/19 at 01:00 Calcium Carbonate (Oyster Shell Calcium) 1.25 gm DAILY PO Last administered on 04/18/19 08:46; Admin Dose 1.25 GM; Start 04/18/19 at 09:00 Enoxaparin Sodium (Lovenox) 40 mg DAILY SC Last administered on 04/18/19 08:59; Admin Dose 40 MG; Start 04/18/19 at 09:00 Famotidine (Pepcid) 20 mg DAILY PO Last administered on 04/18/19 08:47; Admin Dose 20 MG; Start 04/18/19 at 09:00 Morphine Sulfate (morphine) 4 mg Q3H PRN IV .SEVERE PAIN 7-10 Last administered on 04/18/19 06:02; Admin Dose 4 MG; Start 04/17/19 at 14:00 Oxycodone/ Acetaminophen (Endocet (10/ 325)) 1 tab Q4H PRN PO MODERATE PAIN LEVEL 4-6 Last administered on 04/18/19 00:57; Admin Dose 1 TAB; Start 04/17/19 at 14:00 Lactobacillus Acidophilus/ Rhamnosus (Culturelle) 1 cap BID PO Last administered on 04/18/19 08:48; Admin Dose 1 CAP; Start 04/17/19 at 21:00 Potassium Chloride (Potassium Chloride Pwd/Soln) 40 meq BID PO Last administered on 04/18/19 08:48; Admin Dose 40 MEQ; Start 04/17/19 at 14:00 LUZ ELENA BANUELOS Apr 18, 2019 11:01
[2019-04-18 11:44] VITALS: BP 122/59; PULSE 110; RESP 18
[2019-04-18] MEDS: SOD CHLORIDE 0.9% 1,000 ML IV SCH (12:32)
[2019-04-18 15:56] VITALS: BP 118/56; PULSE 109; RESP 18
--- NOTE | 2019-04-18 19:13 | PN ---
DATE: 04/18/2019 SUBJECTIVE: Patient is awake, looks comfortable, no fevers overnight. VITAL SIGNS: T-max 99.5. LABORATORY DATA: WBC 6.7, platelets 268, neutrophils ____ 4.1, BUN 7, creatinine 0.3. MICROBIOLOGY: Urine culture growing Pseudomonas and gram-negative rods. Blood cultures remain negat demetris. MRSA swab negative. ANTIMICROBIALS: She is on: 1. Vancomycin. 2. Zosyn. PHYSICAL EXAMINATION: GENERAL: This is a chronically ill-appearing, wasted, middle-aged woman who is awake, in no distress . HEENT: Head atraumatic, normocephalic. Sclerae anicteric. Buccal mucosa dry. NECK: Supple. CHEST: Rise symmetrical. Breath sounds diminished to bases. HEART: S1, S2. ABDOMEN: Soft. The patient has bilateral nephrostomy. She has a right-sided pigtail. She has ileo stomy. EXTREMITIES: Without cyanosis. ASSESSMENT: 1. Sepsis, present on admission. 2. Polymicrobial urinary tract infection. 3. Mucinous at the [place] adenocarcinoma and pelvic mass, status post surgical intervention includin g hysterectomy with bilateral ectomy omentectomy and appendectomy, status post ureteral carcinoma res ection. 4. Sjogren's syndrome. 5. Rheumatoid arthritis. PLAN: The patient is doing better. WBC normalized. We are going to discontinue vancomycin. Contin ue Zosyn for now, await for final urine cultures. Dictated By: JENNA SAAVEDRA [employer] for AUGUSTO ARENAS/[place] Conf#: [id number] DID#: [id number]
[2019-04-18 20:21] VITALS: BP 125/63; PULSE 113; RESP 20
[2019-04-18] MEDS: ATORVASTATIN 20 MG TAB PO SCH (20:33)
[2019-04-18] MEDS: ONDANSETRON 4 MG INJ IV PRN (20:35)
[2019-04-19 00:11] VITALS: BP 134/63; PULSE 118; RESP 20
[2019-04-19 04:28] VITALS: BP 133/61; PULSE 110; RESP 18
[2019-04-19] MEDS: PIPER-TAZO 3.375 GM IV (PMX) 100 ML IVPB SCH ×3 (05:19→17:04)
[2019-04-19] MEDS: SOD CHLORIDE 0.9% 1,000 ML IV SCH (05:19)
[2019-04-19] MEDS: OXYCODONE/ACETAMINOPHEN (10/325) TAB PO PRN ×2 (05:20→16:16)
[2019-04-19 07:33] VITALS: BP 112/58; PULSE 136; RESP 20
[2019-04-19] MEDS: carBAMAZepine (XR) 200 MG TABSR PO SCH ×2 (08:52→12:13)
[2019-04-19] MEDS: carBAMAZepine (XR) 100 MG TABSR PO SCH ×2 (08:52→12:16)
[2019-04-19] MEDS: CALCIUM CARBONATE 1.25 GM TAB PO SCH (08:53)
[2019-04-19] MEDS: ONDANSETRON 4 MG INJ IV PRN (08:53)
[2019-04-19] MEDS: FAMOTIDINE 20 MG TAB PO SCH (08:53)
[2019-04-19] MEDS: SULFASALAZINE 500 MG TAB PO SCH (09:08)
[2019-04-19] MEDS: POTASSIUM CHLORIDE 20 MEQ POWDER FOR ORAL SOLN PO SCH (09:08)
[2019-04-19] MEDS: PRIMIDONE 250 MG TAB PO SCH ×2 (09:09→12:13)
[2019-04-19] MEDS: LACTOBACILLUS RHAMNOSUS CAP PO SCH (09:09)
[2019-04-19] MEDS: FOLIC ACID 1 MG TAB PO SCH (09:09)
[2019-04-19] MEDS: predniSONE 2.5 MG TAB PO SCH ×2 (09:09→12:13)
[2019-04-19] MEDS: ENOXAPARIN 40 MG/0.4 ML SYG SC SCH (09:31)
--- NOTE | 2019-04-19 10:40 | PDOCDIS ---
Discharge Instructions CONDITION [id number] Patient Condition: [id number] Stable HOME CARE INSTRUCTIONS: [id number] Diet Instructions: [id number] Low Fat /Cholesterol LUZ ELENA BANUELOS Apr 19, 2019 10:40
--- NOTE | 2019-04-19 10:44 | DS ---
Date/Time of Note Date/Time of Note DATE: 04/19/19 TIME: 10:40 Discharge Summary Admission/Discharge Info Admit Date/Time Apr 16, 2019 at 09:31 Discharge Date/Time Discharge Diagnosis # SIRS - suspected sepsis-likely secondary to acute cystitis versus complicated cystitis. Slowly improving. Urine culture positive for 2 different bacterial growth including Pseudomonas. Of note, patient also colostomy status post in the past. Patient has bilateral nephrostomy tubes in place as well. 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 Primary was never determined, felt to be of GI origin. s/p supracervical hysterectomy with BSO, omentectomy and appendectomy in 2017 # Rheumatoid arthritis - chronic # Malnutrition/Failure to thrive-improving with partial p.o. intake and tube feeds # Sjogren's syndrome # Osteoporosis # Seizure disorder-likely secondary to brain tumor which led to surgery in the remote past # Subclinical hyperthyroidism: Free T4 level normal Patient Condition: Stable Hospital Course So patient was admitted and seen by infectious disease team during this hospital stay. Patient was found with E. coli and Pseudomonas urinary tract infection and was placed on appropriate antibiotics for that. Patient's symptoms slowly improved. She was able to minimally work with physical therapy team. White blood cell count improved, fevers resolved as well. Patient apparently has a history of colostomy tube from the past, as well as bilateral nephrostomy tubes placed apparently earlier this year in November at another hospital. We are waiting for medical records from that outside hospital to further assess, but since we found the source of the patient's sepsis, and patient is clinically improving on antibiotics, vital signs are stable, tolerating diet, [facility] in improved condition. See printed medicine reconciliation sheet for full list of discharge medications, this will include IV antibiotics for another 7 days. Home Meds Reported Medications Calcium Carbonate (Calcium Carbonate) 500 Mg Tab.chew, 500 MG PO DAILY, TAB.CHEW 04/16/19 Vitamin E* (Vitamin E*) Unknown Strength Capsule, 1 CAP PO DAILY, CAP 04/16/19 Methotrexate* (Methotrexate*) 2.5 Mg Tab, 20 MG PO Q SAT, TAB 04/16/19 Multivitamin (MULTI VITAMIN DAILY) 1 Each Tablet, 1 TAB PO DAILY, TAB 04/16/19 Ibuprofen* (Ibuprofen*) 800 Mg Tab, 800 MG PO Q6H PRN for PAIN, TAB 04/16/19 Simvastatin* (Zocor*) 40 Mg Tablet, 40 MG PO QHS, #30 TAB 04/16/19 Fenofibrate, Micronized (Fenofibrate) 67 Mg Capsule, 67 MG PO DAILY, CAP 04/16/19 Folic Acid* (Folic Acid*) 1 Mg Tablet, 1 MG PO DAILY, TAB 04/16/19 Prednisone* (Prednisone*) 2.5 Mg Tablet, 2.5 MG PO TID, TAB 04/16/19 Sulfasalazine* (Sulfazine*) 500 Mg Tablet, 1000 MG PO BID, TAB 04/16/19 Primidone* (Mysoline*) 250 Mg Tablet, 250 MG PO TID, TAB 04/16/19 Carbamazepine* (Carbamazepine* XR) 200 Mg Tab.er.12h, 500 MG PO TID, #60 TAB.SA 04/16/19 Discontinued Reported Medications Sulfasalazine (Azulfidine) 500 Mg Tab, 500 MG PO QID for 30 Days, #120 TAB 04/23/17 Prednisone* (Prednisone*) 10 Mg Tab, 30 MG PO DAILY, TAB 04/23/17 Carbamazepine* (Carbamazepine* XR) 200 Mg Tab.er.12h, 500 MG PO TID, #60 TAB.SA 04/23/17 Multivitamins* (Once Daily*) 1 Tab Tablet, 1 TAB PO DAILY, TAB 05/21/15 Methotrexate* (Methotrexate*) 2.5 Mg Tab, 20 MG PO every 7 days, TAB Saturdays05/21/15 Simvastatin (Simvastatin) 40 Mg Tablet, 40 MG PO HS, TAB 05/21/15 Primidone* (Mysoline*) 250 Mg Tablet, 250 MG PO TID 01/24/13 Folic Acid* (Folic Acid*) 1 Mg Tablet, 1 MG PO DAILY 01/24/13 Calcium Carbonate/Vitamin D3 (Calcium Carb 500 Mg Tab Chew) 1 Tab.chew Tab.chew, PO BID 07/07/11 Discontinued Scripts Tramadol HCl (Tramadol HCl) 50 Mg Tablet, 50 MG PO Q6H PRN for PAIN LEVEL 4-7, #30 TAB Prov:[employer] 05/18/17 Primary Care Provider Frank Jackson MD Time spent on discharge: > 30 minutes Pending Labs Laboratory Tests Test 04/18/19 11:19 04/19/19 05:49 Lab Scanned Report REFERENCE LAB [id number] White Blood Count 7.2 10^3/ul (4.8-10.8) Red Blood Count 3.79 10^6/ul (4.20-5.40) Hemoglobin 12.0 g/dl (12.0-16.0) Hematocrit 39.1 % (37.0-47.0) Mean Corpuscular Volume 103.2 fl (82.0-101.0) Mean Corpuscular Hemoglobin 31.7 pg (29.0-33.0) Mean Corpuscular 30.7 g/dl (32.0-37.0) Hemoglobin Concent Red Cell Distribution Width 14.2 % (11.5-14.5) Platelet Count 323 10^3/UL (140-415) Mean Platelet Volume 10.3 fl (7.4-10.4) Immature Granulocytes % 0.400 % (0.001-0.429) Neutrophils % 62.7 % (39.0-77.0) Lymphocytes % 22.3 % (15.0-51.0) Monocytes % 11.5 % (0.0-11.0) Eosinophils % 2.8 % (0.0-7.0) Basophils % 0.3 % (0.0-2.0) Nucleated Red Blood Cells % 0.0 /100WBC (0.0-0.0) Immature Granulocytes # 0.030 10^3/ul (0.0-0.031) Neutrophils # 4.5 10^3/ul (1.6-7.5) Lymphocytes # 1.6 10^3/ul (0.8-2.9) Monocytes # 0.8 10^3/ul (0.3-0.9) Eosinophils # 0.2 10^3/ul (0.0-0.5) Basophils # 0.0 10^3/ul (0.0-0.1) Nucleated Red Blood Cells # 0.0 10^3/ul (0.0-0.0) Sodium Level 142 mmol/L (135-144) Potassium Level 5.0 mmol/L (3.5-5.1) Chloride Level 105 mmol/L (97-110) Carbon Dioxide Level 28 mmol/L (21-31) Anion Gap 9 (5-13) Blood Urea Nitrogen 8 mg/dl (7-20) Creatinine 0.29 mg/dl (0.44-1.00) Est Glomerular Filtrat > 60 mL/min (>60) Rate mL/min Glucose Level 110 mg/dl (70-220) Calcium Level 9.8 mg/dl (8.4-10.2) Phosphorus Level 3.3 mg/dl (2.5-4.9) Magnesium Level 1.9 mg/dl (1.7-2.5) LUZ ELENA BANUELOS. Apr 19, 2019 10:43
[2019-04-19] MEDS: morphine 4 MG/ML VIAL IV PRN (10:46)
[2019-04-19 11:32] VITALS: BP 125/71; PULSE 103; RESP 19
[2019-04-19] MEDS: ACETAMINOPHEN 325 MG TAB PO PRN (12:13)
--- NOTE | 2019-04-19 12:55 | CONS ---
Assessment/Plan Assessment/Plan Hospital Course (Demo Recall) SUBJECTIVE: Patient is awake, looks comfortable, no fevers overnight. MICROBIOLOGY: Urine culture growing Pseudomonas and gram-negative rods. Blood cultures remain negative. MRSA swab negative. ANTIMICROBIALS: She is on: 1. Vancomycin. 2. Zosyn. PHYSICAL EXAMINATION: GENERAL: This is a chronically ill-appearing, wasted, middle-aged woman who is awake, in no distress. HEENT: Head atraumatic, normocephalic. Sclerae anicteric. Buccal mucosa dry. NECK: Supple. CHEST: Rise symmetrical. Breath sounds diminished to bases. HEART: S1, S2. ABDOMEN: Soft. The patient has bilateral nephrostomy. She has a right-sided pigtail. She has ileostomy. EXTREMITIES: Without cyanosis. ASSESSMENT: 1. S/p sepsis, present on admission. 2. Polymicrobial urinary tract infection. 3. Mucinous at the [place] adenocarcinoma and pelvic mass, status post surgical intervention including hysterectomy with bilateral ectomy omentectomy and appendectomy, status post ureteral carcinoma resection. 4. Sjogren's syndrome. 5. Rheumatoid arthritis. PLAN: Stable, ok dc on oral Cipro for 7 more days Consultation Date/Type/Reason Admit Date/Time Apr 16, 2019 at 09:31 Initial Consult Date Type of Consult id Date/Time of Note DATE: 04/19/19 TIME: 12:51 Exam/Review of Systems Exam Vitals Vital Signs Date Temp Pulse Resp B/P (MAP) Pulse Ox O2 O2 Flow FiO2 Time Delivery Rate 04/19/19 98.6 103 19 125/71 97 11:32 (89) 04/16/19 Room Air 20:03 04/16/19 2.0 13:27 Intake and Output 04/18/19 04/18/19 04/19/19 1515:00 23:00 07:00 IntakeIntake Total 470 ml 1250 ml 950 ml OutputOutput Total 700 ml 1800 ml 1050 ml BalanceBalance -230 ml -550 ml -100 ml Results Result Diagram: 04/19/19 0549 04/19/19 0549 Results 24hrs Laboratory Tests Test 04/19/19 05:49 White Blood Count 7.2 Red Blood Count 3.79 #L Hemoglobin 12.0 # Hematocrit 39.1 # Mean Corpuscular Volume 103.2 H Mean Corpuscular Hemoglobin 31.7 Mean Corpuscular Hemoglobin Concent 30.7 L Red Cell Distribution Width 14.2 Platelet Count 323 # Mean Platelet Volume 10.3 Immature Granulocytes % 0.400 Neutrophils % 62.7 Lymphocytes % 22.3 Monocytes % 11.5 H Eosinophils % 2.8 Basophils % 0.3 Nucleated Red Blood Cells % 0.0 Immature Granulocytes # 0.030 Neutrophils # 4.5 Lymphocytes # 1.6 Monocytes # 0.8 Eosinophils # 0.2 Basophils # 0.0 Nucleated Red Blood Cells # 0.0 Sodium Level 142 Potassium Level 5.0 Chloride Level 105 Carbon Dioxide Level 28 Anion Gap 9 # Blood Urea Nitrogen 8 Creatinine 0.29 L Est Glomerular Filtrat Rate mL/min > 60 Glucose Level 110 Calcium Level 9.8 Phosphorus Level 3.3 Magnesium Level 1.9 Medications Medication Current Medications Folic Acid (Folic Acid) 1 mg DAILY PO Last administered on 04/19/19 09:09; Admin Dose 1 MG; Start 04/16/19 at 12:00 Ibuprofen (Motrin) 800 mg Q6H PRN PO PAIN; Start 04/16/19 at 12:00 Prednisone (Prednisone) 2.5 mg TID PO Last administered on 04/19/19 12:13; Admin Dose 2.5 MG; Start 04/16/19 at 13:00 Primidone (Mysoline) 250 mg TID PO Last administered on 04/19/19 12:13; Admin Dose 250 MG; Start 04/16/19 at 13:00 Sulfasalazine (Azulfidine) 1,000 mg BID PO Last administered on 04/19/19 09:08; Admin Dose 1,000 MG; Start 04/16/19 at 21:00 Atorvastatin Calcium (Lipitor) 20 mg DAILY@21 PO Last administered on 04/18/19 20:33; Admin Dose 20 MG; Start 04/16/19 at 21:00 IV Flush (NS 3 ml) 3 ml PER PROTOCOL IV ; Start 04/16/19 at 12:00 Ondansetron HCl (Zofran Inj) 4 mg Q6H PRN IV NAUSEA/VOMITING Last administered on 04/19/19 08:53; Admin Dose 4 MG; Start 04/16/19 at 12:00 Acetaminophen (Tylenol Tab) 650 mg Q6H PRN PO .PAIN 1-3 OR TEMP Last administered on 04/19/19 12:13; Admin Dose 650 MG; Start 04/16/19 at 12:00 Acetaminophen (Tylenol Supp) 650 mg Q6H PRN [place] .PAIN 1-3 OR TEMP; Start 04/16/19 at 12:00 Docusate Sodium (Colace) 100 mg Q12H PRN PO .CONSTIPATION; Start 04/16/19 at 12:00 Bisacodyl (Dulcolax) 5 mg DAILY PRN PO .CONSTIPATION; Start 04/16/19 at 12:00 Bisacodyl (Dulcolax Supp) 10 mg DAILY PRN [place] .CONSTIPATION; Start 04/16/19 at 12:00 Piperacillin Sod/ Tazobactam Sod 100 ml @ 200 mls/hr Q6 IVPB Last administered on 04/19/19 12:13; Admin Dose 200 MLS/HR; Start 04/16/19 at 12:00 Carbamazepine (Tegretol Xr) 400 mg TID PO Last administered on 04/19/19 12:13; Admin Dose 400 MG; Start 04/16/19 at 13:00 Carbamazepine (Tegretol Xr) 100 mg TID PO Last administered on 04/19/19 12:16; Admin Dose 100 MG; Start 04/16/19 at 13:00 Calcium Carbonate (Oyster Shell Calcium) 1.25 gm DAILY PO Last administered on 04/19/19 08:53; Admin Dose 1.25 GM; Start 04/18/19 at 09:00 Enoxaparin Sodium (Lovenox) 40 mg DAILY SC Last administered on 04/19/19 09:31; Admin Dose 40 MG; Start 04/18/19 at 09:00 Famotidine (Pepcid) 20 mg DAILY PO Last administered on 04/19/19 08:53; Admin Dose 20 MG; Start 04/18/19 at 09:00 Morphine Sulfate (morphine) 4 mg Q3H PRN IV .SEVERE PAIN 7-10 Last administered on 04/19/19 10:46; Admin Dose 4 MG; Start 04/17/19 at 14:00 Oxycodone/ Acetaminophen (Endocet (10/ 325)) 1 tab Q4H PRN PO MODERATE PAIN LEVEL 4-6 Last administered on 04/19/19 05:20; Admin Dose 1 TAB; Start 04/17/19 at 14:00 Lactobacillus Acidophilus/ Rhamnosus (Culturelle) 1 cap BID PO Last administered on 04/19/19at 09:09; Admin Dose 1 CAP; Start 04/17/19 at 21:00 Potassium Chloride (Potassium Chloride Pwd/Soln) 40 meq BID PO Last administered on 04/19/19at 09:08; Admin Dose 40 MEQ; Start 04/17/19 at 14:00 JENNA SAAVEDRA NP Apr 19, 2019 12:55
[2019-04-19 15:31] VITALS: BP 117/59; PULSE 107; RESP 20
== END 2019-04-19 17:06 | DRG 872 ==
LOC: E/R 07:26 → 6WM 09:31 → CANRESERV 10:12 → EDBEDREQSVC 11:56
PROVIDERS: ADMIT Internal Medicine; ATTEND Hospitalist
DX: A41.9 Sepsis, unspecified organism (principal); E46 Unspecified protein-calorie malnutrition; N30.00 Acute cystitis without hematuria; M35.00 Sjogren syndrome, unspecified; M81.0 Age-related osteoporosis without current pathological fracture; M06.9 Rheumatoid arthritis, unspecified; E03.9 Hypothyroidism, unspecified; R62.7 Adult failure to thrive; E21.3 Hyperparathyroidism, unspecified; Z90.710 Acquired absence of both cervix and uterus; Z90.49 Acquired absence of other specified parts of digestive tract; Z85.89 Personal history of malignant neoplasm of other organs and systems; Z93.6 Other artificial openings of urinary tract status
CPT/HCPCS: 36415; 71045; 74176; 80048; 80053; 80202; 81001; 82607; 82746; 83036; 83605; 83690; 83735; 84100; 84439; 84443; 84480; 85025; 85610; 87081; 87086; 96374; 97162; 97165; J0692; J1650; J2270; J2405; J2543; J3370; J7030; J7040; J7120; J7512

== ENCOUNTER 2019-05-25 22:10 | Observation (INO) | payer OTHER ==
[~2019-05-25] VITALS: Ht 147.3 cm; Wt 65.7 kg
[~2019-05-25 22:10] MED LIST changes: +ACET325T45 PO; +AMIN30LI PO; +ATOR20TA38 PO; -CALC1TAB78 PO; +HYDR-3980 PO; -MULT-552 PO; +ONDA4TAB95 PO; +POTA20TA15 PO; -PRED10TA PO; -SIMV40TA3 PO; -SULF500T45 PO; -TRAM50TA2 PO
[2019-05-26] MEDS ORDERED: ONDANSETRON 4 MG INJ IV PRN ×2 (00:30)
[2019-05-26] MEDS ORDERED: ACETAMINOPHEN 325 MG TAB PO PRN ×3 (00:30→06:00)
[2019-05-26] MEDS ORDERED: DOCUSATE SODIUM 100 MG CAP PO PRN (00:30)
[2019-05-26] MEDS ORDERED: NACL 0.9% 3 ML SYG IV SCH (00:30)
[2019-05-26] MEDS ORDERED: BISACODYL (EC) 5 MG TAB PO PRN (00:30)
[2019-05-26 01:45] VITALS: Ht 147.3 cm; Wt 65.7 kg
[2019-05-26 02:00] VITALS: BP 121/58; PULSE 94
[2019-05-26] MEDS: SOD CHLORIDE 0.9% 1,000 ML IV SCH ×2 (02:44→11:43)
[2019-05-26] MEDS ORDERED: HYDROCODONE/APAP (10/325) TAB PO PRN (06:00)
[2019-05-26] MEDS ORDERED: ONDANSETRON 4 MG TAB PO PRN (06:00)
[2019-05-26] MEDS ORDERED: IBUPROFEN 800 MG TAB PO PRN (06:00)
[2019-05-26 08:00] VITALS: BP 175/80; PULSE 76; RESP 20
[2019-05-26] MEDS: PRIMIDONE 250 MG TAB PO SCH ×3 (08:49→21:48)
[2019-05-26] MEDS: FOLIC ACID 1 MG TAB PO SCH (08:49)
[2019-05-26] MEDS: carBAMAZepine (XR) 100 MG TABSR PO SCH ×3 (08:49→21:49)
[2019-05-26] MEDS: CALCIUM CARBONATE 500 MG CHEW TAB PO SCH (08:51)
[2019-05-26] MEDS: MULTIVITAMINS THERAPEUTIC TAB PO SCH (08:52)
[2019-05-26] MEDS: FENOFIBRATE 48 MG TAB PO SCH (08:52)
[2019-05-26] MEDS: POTASSIUM CHLORIDE (SR) 20 MEQ TAB PO SCH ×2 (08:52→21:00)
[2019-05-26] MEDS ORDERED: FENOFIBRATE MICRONIZED 67 MG PO SCH (09:00)
[2019-05-26] MEDS ORDERED: NON-FORMULARY/PATIENT OWN MED (Amino Acids/Protein Hydrolys (Pro-Stat Liquid) 30 ML) PO SCH (09:00)
[2019-05-26] MEDS ORDERED: hydrALAzine 20 MG INJ IV PRN (10:30)
[2019-05-26] MEDS: DIPHENHYDRAMINE 50 MG INJ IV PRN ×2 (11:33→17:33)
[2019-05-26] MEDS: morphine 2 MG INJ IV PRN ×2 (11:37→16:55)
[2019-05-26 11:40] VITALS: BP 115/62; PULSE 111
[2019-05-26 14:00] VITALS: BP 126/77; PULSE 96; RESP 18
[2019-05-26] MEDS ORDERED: FENTAnyl 50 MCG/ML VIAL ONE (15:21)
[2019-05-26] MEDS ORDERED: LIDOCAINE 1% (MDV) 20 ML INJ ONE (15:21)
[2019-05-26] MEDS ORDERED: MIDAZOLAM 1 MG/ML 2 ML INJ ONE (15:22)
[2019-05-26 20:00] VITALS: BP 114/57; PULSE 114; RESP 18
[2019-05-26] MEDS ORDERED: ATORVASTATIN 20 MG TAB PO SCH ×2 (21:00)
[2019-05-26] MEDS ORDERED: NON-FORMULARY/PATIENT OWN MED (Simvastatin* (Zocor*) 40 MG) PO SCH (21:00)
[2019-05-26 22:00] VITALS: PULSE 98
[2019-05-27 02:00] VITALS: BP 120/79; PULSE 102; RESP 19
[2019-05-27 08:00] VITALS: BP 114/66; PULSE 112; RESP 18
[2019-05-27] MEDS: FOLIC ACID 1 MG TAB PO SCH (09:30)
[2019-05-27] MEDS: PRIMIDONE 250 MG TAB PO SCH ×2 (09:30→12:15)
[2019-05-27] MEDS: CALCIUM CARBONATE 500 MG CHEW TAB PO SCH (09:30)
[2019-05-27] MEDS: FENOFIBRATE 48 MG TAB PO SCH (09:30)
[2019-05-27] MEDS: MULTIVITAMINS THERAPEUTIC TAB PO SCH (09:30)
[2019-05-27] MEDS: POTASSIUM CHLORIDE (SR) 20 MEQ TAB PO SCH (09:30)
[2019-05-27] MEDS: carBAMAZepine (XR) 100 MG TABSR PO SCH ×2 (13:00→13:50)
[2019-05-27 14:00] VITALS: BP 124/62; PULSE 96; RESP 20
[2019-05-27] MEDS ORDERED: predniSONE 2.5 MG TAB PO SCH (21:00)
[2019-05-27] MEDS ORDERED: SULFASALAZINE 500 MG TAB PO SCH (21:00)
[2019-05-27] MEDS ORDERED: carBAMAZepine (XR) 100 MG TABSR PO SCH (21:00)
[2019-05-27] MEDS ORDERED: carBAMAZepine (XR) 200 MG TABSR PO SCH (21:00)
== END 2019-05-27 17:36 ==
LOC: E/R 22:10 → PP2 05-26 00:13
PROVIDERS: ADMIT Family Medicine; ATTEND Family Medicine
DX: T83.022A Displacement of nephrostomy catheter, initial encounter (principal); G40.909 Epilepsy, unspecified, not intractable, without status epilepticus; M06.9 Rheumatoid arthritis, unspecified; M35.00 Sjogren syndrome, unspecified; D64.9 Anemia, unspecified; M81.0 Age-related osteoporosis without current pathological fracture; Y83.3 Surgical operation with formation of external stoma as the cause of abnormal reaction of the patient, or of later complication, without mention of misadventure at the time of the procedure
CPT/HCPCS: 36415; 50433; 71045; 74475; 80048; 83036; 83735; 84100; 84443; 85025; 85610; 85730; 87081; C1729; J1200; J2270; J2405; J3010; J7030; Z7500; Z7502; Z7610; 99217; G0378; J0360; J2250

== ENCOUNTER 2019-07-16 15:28 | Inpatient (IN) | payer OTHER ==
[~2019-07-16] VITALS: Ht 172.7 cm; Wt 64.0 kg
[~2019-07-16 15:28] MED LIST changes: +FAMO20TA18 PO; +LACT1CAP28 PO; -MET25 PO
[2019-07-16] MEDS ORDERED: morphine 4 MG/ML VIAL IV STA (16:07)
[2019-07-16] MEDS ORDERED: ONDANSETRON 4 MG INJ IV STA (16:07)
[2019-07-16] MEDS ORDERED: ONDANSETRON 4 MG INJ IV PRN ×2 (16:30→19:00)
[2019-07-16] MEDS ORDERED: ACETAMINOPHEN 325 MG TAB PO PRN ×2 (16:30→19:00)
[2019-07-16] MEDS ORDERED: HYDROmorphONE 2 MG/ML SYG IV STA (17:04)
[2019-07-16] MEDS ORDERED: DOCUSATE SODIUM 100 MG CAP PO PRN (19:00)
[2019-07-16] MEDS ORDERED: ZOLPIDEM 5 MG TAB PO PRN (19:00)
[2019-07-16] MEDS ORDERED: NACL 0.9% 3 ML SYG IV SCH (19:00)
[2019-07-16 19:24] VITALS: BP 115/56; PULSE 127; RESP 18
[2019-07-16] MEDS: morphine 2 MG INJ IV PRN (20:13)
[2019-07-16 20:17] VITALS: BP 111/52; PULSE 113; RESP 17
[2019-07-16] MEDS ORDERED: POTASSIUM CHLORIDE (SR) 20 MEQ TAB PO SCH (21:00)
[2019-07-16] MEDS: carBAMAZepine (XR) 100 MG TABSR PO SCH (22:11)
[2019-07-16] MEDS: predniSONE 2.5 MG TAB PO SCH (22:14)
[2019-07-16] MEDS: SULFASALAZINE 500 MG TAB PO SCH (22:14)
[2019-07-16] MEDS: PRIMIDONE 250 MG TAB PO SCH (22:14)
[2019-07-16] MEDS: ATORVASTATIN 20 MG TAB PO SCH (22:14)
[2019-07-16] MEDS: SOD CHLORIDE 0.9% 1,000 ML IV SCH (22:22)
[2019-07-16] MEDS: HYDROCODONE/APAP (5/325) TAB PO PRN (22:35)
[2019-07-17] MEDS ORDERED: SOD CHLORIDE 0.9% 500 ML IV ONE (01:00)
[2019-07-17 01:05] VITALS: BP 118/74; PULSE 100; RESP 20
[2019-07-17 01:47] VITALS: Ht 172.7 cm; Wt 64.0 kg
[2019-07-17 07:33] VITALS: BP 124/60; PULSE 123; RESP 18
[2019-07-17] MEDS: PRIMIDONE 250 MG TAB PO SCH ×3 (09:00→21:24)
[2019-07-17] MEDS ORDERED: SOD CHLORIDE 0.9% 250 ML IV ONE (09:00)
[2019-07-17] MEDS: SULFASALAZINE 500 MG TAB PO SCH ×2 (09:00→21:24)
[2019-07-17] MEDS: predniSONE 2.5 MG TAB PO SCH ×3 (09:00→21:24)
[2019-07-17] MEDS: MULTIVITAMINS THERAPEUTIC TAB PO SCH (09:00)
[2019-07-17] MEDS: FOLIC ACID 1 MG TAB PO SCH (09:00)
[2019-07-17] MEDS: CALCIUM CARBONATE 500 MG CHEW TAB PO SCH (09:00)
[2019-07-17] MEDS: carBAMAZepine (XR) 100 MG TABSR PO SCH ×3 (09:00→21:24)
[2019-07-17] MEDS ORDERED: MIDAZOLAM 1 MG/ML 2 ML INJ ONE (11:36)
[2019-07-17] MEDS ORDERED: FENTAnyl 50 MCG/ML VIAL ONE (11:36)
[2019-07-17] MEDS ORDERED: CEFAZOLIN 1 GM/50 ML (PMX) 50 ML IVPB ONE (11:48)
[2019-07-17] MEDS ORDERED: IOHEXOL 300MG/ML 30 ML BTL ONE ×2 (11:53→13:13)
[2019-07-17] MEDS: morphine 2 MG INJ IV PRN ×2 (13:42→22:19)
[2019-07-17 15:06] VITALS: BP 104/60; PULSE 106; RESP 18
[2019-07-17 16:50] VITALS: BP 117/64; PULSE 113; RESP 18
[2019-07-17] MEDS: HYDROCODONE/APAP (5/325) TAB PO PRN (17:09)
[2019-07-17] MEDS: SOD CHLORIDE 0.9% 1,000 ML IV SCH (18:24)
[2019-07-17 19:58] VITALS: BP 110/56; PULSE 99; RESP 18
[2019-07-17] MEDS: ATORVASTATIN 20 MG TAB PO SCH (21:24)
[2019-07-18 02:14] VITALS: BP 107/59; PULSE 98; RESP 18
[2019-07-18] MEDS: SOD CHLORIDE 0.9% 1,000 ML IV SCH (06:32)
[2019-07-18 07:34] VITALS: BP 117/56; PULSE 110; RESP 18
[2019-07-18] MEDS: CALCIUM CARBONATE 500 MG CHEW TAB PO SCH (08:54)
[2019-07-18] MEDS: predniSONE 2.5 MG TAB PO SCH ×3 (08:55→20:32)
[2019-07-18] MEDS: SULFASALAZINE 500 MG TAB PO SCH ×2 (08:55→20:33)
[2019-07-18] MEDS: PRIMIDONE 250 MG TAB PO SCH ×3 (08:55→20:32)
[2019-07-18] MEDS: FOLIC ACID 1 MG TAB PO SCH (08:55)
[2019-07-18] MEDS: carBAMAZepine (XR) 100 MG TABSR PO SCH ×3 (08:55→20:32)
[2019-07-18] MEDS: MULTIVITAMINS THERAPEUTIC TAB PO SCH (08:55)
[2019-07-18] MEDS: HYDROCODONE/APAP (5/325) TAB PO PRN ×2 (09:10→16:16)
[2019-07-18] MEDS ORDERED: FLU VACC QS 2019-20 (6MOS UP) 0.5 ML SYG IM* ONE (10:00)
[2019-07-18 13:46] VITALS: BP 116/61; PULSE 109; RESP 18
[2019-07-18 19:45] VITALS: BP 115/61; PULSE 115; RESP 18
[2019-07-18] MEDS: ATORVASTATIN 20 MG TAB PO SCH (20:32)
[2019-07-18] MEDS: morphine 2 MG INJ IV PRN (21:07)
[2019-07-19 00:54] VITALS: BP 132/70; PULSE 110; RESP 17
[2019-07-19 02:29] VITALS: BP 109/59; PULSE 102; RESP 18
[2019-07-19 07:39] VITALS: BP 115/61; PULSE 93; RESP 18
[2019-07-19] MEDS: MULTIVITAMINS THERAPEUTIC TAB PO SCH (09:39)
[2019-07-19] MEDS: HYDROCODONE/APAP (5/325) TAB PO PRN ×2 (09:39→22:19)
[2019-07-19] MEDS: PRIMIDONE 250 MG TAB PO SCH ×3 (09:39→20:13)
[2019-07-19] MEDS: carBAMAZepine (XR) 100 MG TABSR PO SCH ×3 (09:40→20:13)
[2019-07-19] MEDS: predniSONE 2.5 MG TAB PO SCH ×3 (09:40→20:13)
[2019-07-19] MEDS: FAMOTIDINE 20 MG TAB PO SCH (09:40)
[2019-07-19] MEDS: SULFASALAZINE 500 MG TAB PO SCH ×2 (09:40→21:00)
[2019-07-19] MEDS: FOLIC ACID 1 MG TAB PO SCH (09:40)
[2019-07-19] MEDS: CALCIUM CARBONATE 500 MG CHEW TAB PO SCH (09:40)
[2019-07-19] MEDS: ENOXAPARIN 30 MG/0.3 ML SYG SC SCH (09:41)
[2019-07-19 14:18] VITALS: BP 110/59; PULSE 108; RESP 18
[2019-07-19] MEDS: morphine 2 MG INJ IV PRN (15:47)
[2019-07-19 19:50] VITALS: BP 130/65; PULSE 108; RESP 18
[2019-07-19] MEDS: ATORVASTATIN 20 MG TAB PO SCH (20:13)
[2019-07-20 01:42] VITALS: BP 127/61; PULSE 94; RESP 18
[2019-07-20 07:56] VITALS: BP 119/62; PULSE 112; RESP 18
[2019-07-20] MEDS ORDERED: LACTOBACILLUS RHAMNOSUS CAP PO SCH (09:00)
[2019-07-20] MEDS ORDERED: FAMOTIDINE 20 MG TAB PO SCH (09:00)
[2019-07-20] MEDS: carBAMAZepine (XR) 100 MG TABSR PO SCH (09:52)
[2019-07-20] MEDS: SULFASALAZINE 500 MG TAB PO SCH (09:53)
[2019-07-20] MEDS: CALCIUM CARBONATE 500 MG CHEW TAB PO SCH (09:53)
[2019-07-20] MEDS: FOLIC ACID 1 MG TAB PO SCH (09:53)
[2019-07-20] MEDS: FAMOTIDINE 20 MG TAB PO SCH (09:54)
[2019-07-20] MEDS: predniSONE 2.5 MG TAB PO SCH ×2 (09:54→13:45)
[2019-07-20] MEDS: PRIMIDONE 250 MG TAB PO SCH ×2 (09:54→13:45)
[2019-07-20] MEDS: MULTIVITAMINS THERAPEUTIC TAB PO SCH (09:54)
[2019-07-20] MEDS: HYDROCODONE/APAP (5/325) TAB PO PRN (09:55)
[2019-07-20] MEDS: ENOXAPARIN 30 MG/0.3 ML SYG SC SCH (09:56)
[2019-07-20] MEDS ORDERED: carBAMAZepine (XR) 200 MG TABSR PO ONE (14:00)
[2019-07-20] MEDS ORDERED: carBAMAZepine (XR) 100 MG TABSR PO ONE (14:00)
== END 2019-07-20 14:07 | DRG 698 ==
LOC: E/R 15:28 → MS1 16:18
PROVIDERS: ADMIT Internal Medicine; ATTEND Internal Medicine
PROC: 0T25X0Z Change Drainage Device in Kidney, External Approach (ICD-10-PCS; principal; 2019-07-17)
PROC: BT13ZZZ Fluoroscopy of Bilateral Kidneys (ICD-10-PCS; 2019-07-17)
DX: T83.022A Displacement of nephrostomy catheter, initial encounter (principal); J18.9 Pneumonia, unspecified organism; N13.30 Unspecified hydronephrosis; M35.00 Sjogren syndrome, unspecified; G40.909 Epilepsy, unspecified, not intractable, without status epilepticus; M06.9 Rheumatoid arthritis, unspecified; N13.9 Obstructive and reflux uropathy, unspecified; I10 Essential (primary) hypertension; Y84.8 Other medical procedures as the cause of abnormal reaction of the patient, or of later complication, without mention of misadventure at the time of the procedure; Y92.129 Unspecified place in nursing home as the place of occurrence of the external cause; Z85.53 Personal history of malignant neoplasm of renal pelvis; Z85.038 Personal history of other malignant neoplasm of large intestine; Z85.51 Personal history of malignant neoplasm of bladder; Z87.891 Personal history of nicotine dependence
CPT/HCPCS: 36415; 71045; 74425; 74475; 76775; 76999; 80048; 80053; 83690; 83735; 84100; 84145; 84484; 85025; 85378; 85610; 85730; 90686; 93005; 93970; C1729; J0690; J1170; J1650; J2250; J2270; J2405; J3010; J7030; J7040; J7512; Q9967